=== PATIENT | male | born 1945 | race Caucasian/White ===

== ENCOUNTER → 2017-10-20 10:04 | Outpatient (CLI) | payer MEDICARE, BC, SELFPAY ==
--- NOTE | 2017-10-20 10:08 | CI_ITS ---
Cerebrovascular Exam Indications: 433.10 Occlusion/stenosis of carotid artery without cerebral infarction. IMPRESSIONS 1. The bilateral vertebral arteries are patent with normal antegrade flow. 2. Study suggests 100% stenosis involving the right internal carotid artery. 3. Study suggests 50-69% stenosis involving the left internal carotid artery. No change from the study of 06-Jun-2015. History: Coronary artery disease. Risk factors: Hypertension. Hyperlipidemia. Carotid duplex study. Complete study and Doppler flow study including spectral analysis, color and weinstein scale imaging. Height: Height: 182.9cm. Height: 72in. Weight: Weight: 99.8kg. Weight: 219.5lb. Body mass index: BMI: 29.8kg/m^2. Body surface area: BSA: 2.27m^2. Location: Vascular laboratory. Patient status: Outpatient. Tables: Arterial flow: + +--------+--------+ Location V sys V ed + +--------+--------+ Right CCA - proximal 73.9cm/s 11.8cm/s + +--------+--------+ Right CCA - distal 57.4cm/s 12.6cm/s + +--------+--------+ Right ECA 90.4cm/s -------- + +--------+--------+ Right vertebral 49.5cm/s -------- + +--------+--------+ Left CCA - proximal 80.1cm/s 25.1cm/s + +--------+--------+ Left CCA - distal 78.6cm/s 25.9cm/s + +--------+--------+ Left ECA 111cm/s -------- + +--------+--------+ Left ICA - proximal 106cm/s 32.2cm/s + +--------+--------+ Left ICA - mid 148cm/s 58.9cm/s + +--------+--------+ Left ICA - distal 127cm/s 40.1cm/s + +--------+--------+ Left vertebral 52.6cm/s -------- + +--------+--------+ Velocity ratios: + + + + Left, V sys Left, V ed + + + + Max ICA/dist CCA 1.88 2.27 + + + + (Report amended ) Electronically signed by: Jose Gamino [id number]
== END ==
PROVIDERS: Family Provider Family Medicine; PCP Family Medicine; Visit Provider Family Medicine
DX: I65.23 Occlusion and stenosis of bilateral carotid arteries (principal)
CPT/HCPCS: 93880

== ENCOUNTER → 2017-11-21 15:17 | Outpatient (CLI) | payer MEDICARE, BC, SELFPAY ==
--- NOTE | 2017-11-21 15:26 | CT_ITS ---
LD CT EXAM: CT LUNG LOW DOSE WO CONTRAST COMPARISON: EXAM: CT CT CHEST 2015 HISTORY: Currently smoking. One pack per day for 50 years = 50 pack-year RADIATION DOSE: CTDI vol(CT dose Index-volume) = 2.95mG DLP (Dose Length Product) = 119.15 mGcm FINDINGS:- LUNGS:There are moderate panlobular emphysematous changes. No suspicious pulmonary nodules are evident. The previous noted wispy minimal density at the posterior right lower lobe seen in 2016 has since resolved and was likely infiltrate. There is some scant scarring or less likely infiltrate which was also now evident the medial right posterior sulcus. Not of concern. Follow-up one year adequate . There is some mild interstitial coarsening but no significant interstitial fibrosis. No pleural effusion. . AIRWAYS minor diffuse bronchial thickening. No endobronchial lesions are identified. PLEURAL SPACES:No significant effusion. No evidence of pneumothorax. HEART:Normal heart size. Moderately extensive Coronary artery calcification is present: right coronary and circumflex most evident and less evident at LAD.: MEDIASTINAL AND HILAR STRUCTURES:No mediastinal or hilar mass evident. No significant adenopathy. VASCULATURE::No acute finding. No thoracic aortic aneurysm or dissectionevident. No evidence of central pulmonary embolus BONY STRUCTURES:No acute bony abnormalities apparent LYMPH NODES:No enlarged lymph nodes evident UPPER ABDOMEN: A 7.5 mm mm low-density area at the central liver Is not changed appreciably since 2016 CT study supporting its benign nature..\ =====IMPRESSION:====== 1. Panlobular emphysematous changes with minimal bronchial thickening. 2. No suspicious nodules. Or masses.. Mediastinal mass nor adenopathy. 3. Lung RADS. Benign features Minimal wispy probable scarring medial right lung base . Follow-up LDCT one year recommended. 4. coronary artery disease. 5. Nonspecific 7.5 mm hypodense lesion of the superior central liver liver. Stable benign feature unchanged since previous study ========= LUNG RADS Category: 2. Benign appearing features RECOMMENDATION: Follow up ldct one year ========= TECHNIQUE: The exam was performed on a [employer] Speed [address] scanner using 3.0 mGy CTDI. A low dose helical CT CHEST was performed on a multi-detector scanner The LDCT was performed in a facility that meets the criteria for the screening program. Data regarding this exam was submitted to ACR which is an approved registry. The order for this exam indicates that it came as a result of a lung cancer screening counseling shard decision-making visit that included all the elements required of such a visit including smoking cessation. The radiologist interpreting this exam meets the CMS criteria for the LDCT lung cancer screening program. The exam is reported using the Lung-RADS classification scale and reported to the ACR registry. NOTE: This study was performed for the specific purposes of lung cancer screening and is not an alternative to diagnostic chest CT.
== END ==
PROVIDERS: Family Provider Family Medicine; PCP Family Medicine; Visit Provider Family Medicine
DX: Z87.891 Personal history of nicotine dependence (principal); F17.200 Nicotine dependence, unspecified, uncomplicated; Z12.2 Encounter for screening for malignant neoplasm of respiratory organs

== ENCOUNTER → 2018-10-20 10:12 | Outpatient (CLI) | payer MEDICARE, BC, SELFPAY ==
--- NOTE | 2018-10-20 10:16 | US_ITS ---
US Arterial Ankle Brachial Ind History: ITS.REASON: Skin Changes, decreased pulses to the left foot, smoker, coronary artery disease ORDERING PHYSICIAN: Felicia Dyson DPM PATIENT AGE: 72 years TECHNIQUE: Segmental pressures obtained of both right and left leg. These are compared to brachial blood pressure to yield index at each level sampled including summary AMBER. The data sheets from the procedure are available in PACS FINDINGS Rest study only performed today No prior studies available for comparison. Blood pressures reported are in millimeters mercury. RIGHT LEG AMBER = .9. RIGHT LEG TBI=.7 Brachial BP: 165 Thigh BP: 165 Calf BP: 171 Ankle PT: 153 Ankle DP : 147 Digit =114 LEFT LEG AMBER = 1.0 LEFT LEG TBI= .7 Brachial BPD: 160 Thigh BP: 157 Calf BP: 170 Ankle PT:169 Ankle DP: 160 Digit = 119 Pulses and waveforms: Normal IMPRESSION: The ABIs and the TBI's as reported above are within normal limits. Waveforms and pulses are also unremarkable.
== END ==
PROVIDERS: PCP Family Medicine; Visit Provider Podiatrist
DX: R09.89 Other specified symptoms and signs involving the circulatory and respiratory systems (principal)
CPT/HCPCS: 93922

== ENCOUNTER → 2018-12-01 09:57 | Outpatient (POV) | payer MEDICARE, BC, SELFPAY ==
[2018-12-01 10:31] VITALS: BP 113/62; PULSE 67; RESP 18; O2SAT 98
--- NOTE | 2018-12-01 16:36 | HMH.PMCON ---
Assessment and Plan (1) Postlaminectomy syndrome Current visit: Yes Status: Chronic Category: Medical Code(s): M96.1 - Postlaminectomy syndrome, not elsewhere classified - Assessment and plan all Dx Assessment and Plan for all problems:: Patient and I had a long discussion in regards to our options. I will go ahead and schedule therapy for the patient. Since the patient got no relief from injections, I do not believe repeating them will be beneficial. I think the patient would benefit from an intrathecal pain pump. I discussed with the patient the ability to trial this. Patient would like to finish physical therapy and think about it. I will see the patient back after physical therapy to reassess. Dr Victor has reviewed this chart and agrees with this plan of care. HPI - Data of Consult Consult date: 12/01/18 Requesting Physician: Constanza Carrillo APRN Primary Care Provider: Sam Vu MD - Consult Narrative Reason for consult: Back pain History of present illness: Mr. Hsu is a 73 year old male Presents today for consultation in regards to his low back pain. Patient had [address] Montague. Patient states it helped however in 2016 his pain came back and was worse. He has pain in his low back and radiating into his hips. He rates his pain a 6 out of 10. Patient denies numbness or tingling in all extremities. Patient is tried and failed ice, rest, heat, stretching. Patient states that bending and lifting increases his pain. Patient does exercises at home continually. Patient has been to the pain clinic where he received injection of therapy along with rhizotomies with no improvement. Patient was told he was going to be sent to physical therapy however this did not get scheduled for him. Patient is wondering what his options are moving forward. Patient is currently on Percocet 7.51 p.o. 4 times daily and diazepam 5 mg 1 p.o. 3 times daily. CC: Constanza Carrillo APRN [facility] History I have reviewed the patient's past medical history: Yes Medical History: Reports:: Gastroesophageal Reflux Disease(GERD), Hyperlipidemia, Hypertension Denies:: Diabetes Mellitus Type 1, Diabetes Mellitus Type 2 *Have you ever received a pneumonia vaccine?: Yes Other Medical History: Reports: Arthritis, Other Other Surgeries: Yes: Colonoscopy, Coronary Stent (3 OR 4 stents in heart), Other Amputation: No Fractures: No - *Social History Smoking Status: Never smoker Tobacco Type: cigarettes # Packs/Day (cigarettes): 2 Alcohol Intake: never Alcohol Intake Frequency:: other Substance Use Type: denies use *Occupational Status:: retired Housing: house *Travel in the last 8 weeks: None - Psychiatric History Expresses thoughts of harming self/others: None Suicide Plan Description: No Plan Family Hx:: Hyperlipidemia, Cancer, Hypertension Review of Systems - Review of Systems ROS General: no recent weight change, no fever, no sleep disturbances Respiratory: no cough, no shortness of air, no recurring pulmonary infections Cardiovascular/Peripheral Vascular: No chest pain, No palpitations, no edema, no shortness of breath. Gastrointestinal: no incontinence, normal bowel movements reported Genitourinary: no incontinence Musculoskeletal: Back pain Psychiatric: normal mood/ affect Neurological: [denies weakness in extremities], [denies balance issues] Meds Home Medications Medication Instructions Recorded Confirmed Type aspirin 81 mg tablet,delayed 81 mg PO QDAY 10/14/17 10/14/18 History release diazepam 10 mg tablet 10 mg PO QHS tab 10/14/17 10/14/18 History duloxetine 60 mg capsule,delayed 60 mg PO QDAY 10/14/17 10/14/18 History release gabapentin 100 mg capsule 100 mg PO TID cap 10/14/17 10/14/18 History lisinopril 10 mg tablet 10 mg PO QDAY 10/14/17 10/14/18 History metoprolol succinate ER 25 mg 25 mg PO QDAY tab 10/14/17 10/14/18 History tablet,extended release 24 hr multivitamin tablet 1
--- NOTE | 2018-12-01 16:39 | P.CONS_ITS ---
Assessment and Plan (1) Postlaminectomy syndrome Current visit: Yes Status: Chronic Category: Medical Code(s): M96.1 - Postlaminectomy syndrome, not elsewhere classified - Assessment and plan all Dx Assessment and Plan for all problems:: Patient and I had a long discussion in regards to our options. I will go ahead and schedule therapy for the patient. Since the patient got no relief from injections, I do not believe repeating them will be beneficial. I think the patient would benefit from an intrathecal pain pump. I discussed with the patient the ability to trial this. Patient would like to finish physical therapy and think about it. I will see the patient back after physical therapy to reassess. Dr Victor has reviewed this chart and agrees with this plan of care. HPI - Data of Consult Consult date: 12/01/18 Requesting Physician: Constanza Carrillo APRN Primary Care Provider: Sam Vu MD - Consult Narrative Reason for consult: Back pain History of present illness: Mr. Hsu is a 73 year old male Presents today for consultation in regards to his low back pain. Patient had [address] Montague. Patient states it helped however in 2016 his pain came back and was worse. He has pain in his low back and radiating into his hips. He rates his pain a 6 out of 10. Patient denies numbness or tingling in all extremities. Patient is tried and failed ice, rest, heat, stretching. Patient states that bending and lifting increases his pain. Patient does exercises at home continually. Patient has been to the pain clinic where he received injection of therapy along with rhizotomies with no improvement. Patient was told he was going to be sent to physical therapy however this did not get scheduled for him. Patient is wondering what his options are moving forward. Patient is currently on Percocet 7.51 p.o. 4 times daily and diazepam 5 mg 1 p.o. 3 times daily. CC: Constanza Carrillo APRN [facility] History I have reviewed the patient's past medical history: Yes Medical History: Reports:: Gastroesophageal Reflux Disease(GERD), Hyperlipidemia, Hypertension Denies:: Diabetes Mellitus Type 1, Diabetes Mellitus Type 2 *Have you ever received a pneumonia vaccine?: Yes Other Medical History: Reports: Arthritis, Other Other Surgeries: Yes: Colonoscopy, Coronary Stent (3 OR 4 stents in heart), Other Amputation: No Fractures: No - *Social History Smoking Status: Never smoker Tobacco Type: cigarettes # Packs/Day (cigarettes): 2 Alcohol Intake: never Alcohol Intake Frequency:: other Substance Use Type: denies use *Occupational Status:: retired Housing: house *Travel in the last 8 weeks: None - Psychiatric History Expresses thoughts of harming self/others: None Suicide Plan Description: No Plan Family Hx:: Hyperlipidemia, Cancer, Hypertension Review of Systems - Review of Systems ROS General: no recent weight change, no fever, no sleep disturbances Respiratory: no cough, no shortness of air, no recurring pulmonary infections Cardiovascular/Peripheral Vascular: No chest pain, No palpitations, no edema, no shortness of breath. Gastrointestinal: no incontinence, normal bowel movements reported Genitourinary: no incontinence Musculoskeletal: Back pain Psychiatric: normal mood/ affect Neurological: [denies weakness in extremities], [denies balance issues] Meds Home Medications Medication Instructions Recorded Confirmed Type aspirin 81 mg tablet,delayed 81 mg PO QDAY 0
== END ==
PROVIDERS: PCP Family Medicine; Visit Provider Clinical Nurse Specialist Family Health
DX: M96.1 Postlaminectomy syndrome, not elsewhere classified (principal)
CPT/HCPCS: 99202

== ENCOUNTER 2019-01-15 10:00 | Outpatient (RCR) | payer MEDICARE, BC, SELFPAY ==
--- NOTE | 2018-12-04 15:52 | HMH.PTOPEV ---
PT Outpatient Evaluation Rehab PT Outpatient Evaluation Start: 12/04/18 15:32 Freq: Status: Active Protocol: Document 12/04/18 15:32 PHOPRAMOD (Rec: 12/04/18 15:48 PHORNE [id number]) Electronically Signed By Fermin Palomino, PT 12/04/18 15:32 Outpatient Therapy Subjective History Subjective History Pt is a 73 yowm with complaints of lower back pain. Pain has been present since February 2016. Pt reports waking up one morning and not being able to get out of bed. Pt reports having back surgery soon after which helped the left leg pain. Pt reports pain is 5/10 at the moment, 3/10 at best and 8/10 at worst. Pt reports pain is in the lower back and goes into the right hip. Pt reports numbness at times in the left upper leg. Pt reports pain decreases when lying in supine, and increases with activity. Pt's comorbidities include A-fib and prostate issues. Pt's past surgeries include back surgery and right knee replacement. Chief Complaint Pain Symptom Type Ache Throb Symptoms Relieved By Rest/Positioning Ice Symptoms Aggravated By Sitting Standing Bending/Stooping Physical Activity Walking Lifting Prior Functional Limitations None Current Functional Limitations Lifting Sleeping Standing Sitting Squatting Recreation Activity Walking Stairs Balance Symptom Description Constant but Variable Level of pain today (0-10) 5 Pain scale - at its best (0-10) 3 Pain scale - at its worst (0-10) 8 Lumbopelvic Eval Posture Thoracic Spine Posture Standing Position Neutral Lumbar Spine Posture Standing Position Flattened Assistive device Assistive Devices None / NA Gait Observation General G
== END 2019-01-15 10:05 | disposition home or self-care (01) ==
LOC: PT 10:00
PROVIDERS: Visit Provider Clinical Nurse Specialist Family Health
DX: M54.5 Low back pain (principal)
CPT/HCPCS: 97010; 97014; 97110; 97163; G0283

== ENCOUNTER → 2019-09-29 09:32 | Outpatient (CLI) | payer MEDICARE, BC, SELFPAY ==
--- NOTE | 2019-09-29 | CA_ITS ---
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 (known) Duplex evaluation demonstrates stenosis of the left internal carotid artery in the range of 50-69% with PSV =140 cm/sec, EDV <100 cm/sec, and IC/CC Ratio <4.0. Duplex evaluation demonstrates antegrade flow of the right Vertebral Artery. Left Vertebral appears to be occluded, new finding. Electronically signed by : Jose Gamino MD 09/30/2019 18:44:42
== END ==
PROVIDERS: PCP Family Medicine; Visit Provider Family Medicine
DX: I65.23 Occlusion and stenosis of bilateral carotid arteries (principal)
CPT/HCPCS: 93880

== ENCOUNTER → 2019-11-02 08:51 | Outpatient (CLI) | payer MEDICARE, BC, SELFPAY ==
[2019-11-02 09:34] LABS: Blood Urea Nitrogen 13 mg/dL (7-18); Estimated Glomerular Filt Rate 59 ml/min (>60); GFR (African American) 72 ML/MIN (>60)
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
--- NOTE | 2019-11-02 09:42 | CT_ITS ---
Procedure: CT ANGIO NECK CLINICAL HISTORY: M[place]IE COMPARISON: No exams were available for comparison TECHNIQUE: IV Contrast: 100ml Optiray 350 Axial images obtained with sagittal and coronal reformats. All CT scans at the facility use one or more dose reduction, viz: automated exposure control, ma/kV adjustment per patient size (including targeted exams where dose is matched to indication, i.e. head), or iterative reconstruction technique. FINDINGS: There is extensive atherosclerosis. There is complete occlusion of the right internal carotid artery at its origin due to mixed calcified and noncalcified atherosclerotic plaques. No flow is seen distally. Right external carotid artery and its branches appear patent. Noncalcified atherosclerotic plaque at the level of the mid right common carotid artery appears to cause 50-60 percent luminal stenosis. Mixed calcified and noncalcified atherosclerotic plaque is seen in the distal left common carotid artery extending to the internal carotid. There is approximately 40-50 percent luminal stenosis of the distal left common carotid artery and 20 percent luminal stenosis of proximal most left internal carotid artery. The external carotid and its branches are patent. There is nonvisualization of a patent left vertebral artery. Right vertebral artery appears patent to the level of the basilar artery. [id number]-[id number] vessels including right middle cerebral artery and anterior cerebral branches appear patent likely due to patent communicating vessels. A 5 millimeter hypodense nodule is incidentally noted in the left thyroid lobe. Lung apices are emphysematous. Some densities in the apices are likely due to scarring. IMPRESSION: Extensive atherosclerosis as described with occlusion of the right internal carotid artery at its origin and nonvisualization of a patent left vertebral artery likely also occluded at its origin. Approximately 40-50 percent luminal stenosis distal left common carotid artery and 20 percent stenosis left internal carotid artery. Flow is noted within patent [id number] vessels Dictated by: Daniel Jenkins 11/02/2019 11:13 Electronically signed by Daniel Jenkins in [place] 11/02/2019 11:13
== END ==
PROVIDERS: PCP Family Medicine; Visit Provider Thoracic Surgery (Cardiothoracic Vascular Surgery)
DX: I65.23 Occlusion and stenosis of bilateral carotid arteries (principal); M53.3 Sacrococcygeal disorders, not elsewhere classified
CPT/HCPCS: 36415; 70498; 74176; 82565; 84520; Q9967

== ENCOUNTER → 2020-05-03 11:27 | Outpatient (CLI) | payer MEDICARE, BC, SELFPAY ==
[2020-05-03 14:15] LABS: Coronavirus 19 IgG Antibody Negative (Negative); Coronavirus 19 IgM Antibody Negative (Negative)
== END ==
PROVIDERS: Visit Provider Internal Medicine Gastroenterology
DX: Z01.818 Encounter for other preprocedural examination (principal)
CPT/HCPCS: 36415; 86328

== ENCOUNTER 2020-05-05 08:33 | Day surgery (SDC) | payer MEDICARE, BC, SELFPAY ==
[2020-04-26 11:07] VITALS: BMI 29.9
[2020-05-05] VITALS (8 sets, daily range): BP systolic 121–170; BP diastolic 68–92; PULSE 53–89; RESP 18; TEMP 36.3–37; O2SAT 92–97
--- NOTE | 2020-05-05 09:21 | P.PN_ITS ---
[facility] Anesthesia Checklist - Patient Identification Patient Identification: Arm Band - Structural Data Admitted From: Home Planned Operative Procedure/s: colonoscopy Consent for Planned Operative Procedure(s) Verified: Yes Verified Documents: Surgical Consent, History and Physical - NPO Status Verified Time NPO: 00:00 - Additional verifications Anesthesia Reactions: No - Airway Assessment C-Spine Mobility Assessed: Yes (mp2) TMJ Mobility Assessed: Yes Dentition: Edentulous - Neurological Assessment Level of Consciousness: Awake, Alert - Anesthesia Plan Anesthesia Risk discussed: Yes Anesthesia Plan: Verified ASA Class: III Anesthesia Type: MAC [facility] History I have reviewed the patient's past medical history: Yes Medical History: Reports:: Atrial Fibrillation, Coronary Artery Disease, Gastroesophageal Reflux Disease(GERD), Hyperlipidemia, Hypertension Denies:: Cancer, Diabetes Mellitus Type 1, Diabetes Mellitus Type 2, Internal Pacemaker, MRSA, Seizures *Have you ever received a pneumonia vaccine?: No *Have you received a flu vaccine this season?: Yes Other Medical History: Reports: Arthritis, Other Anesthesia experience/problems:: nac Laterality Cases: Right: Total Knee Replacement Other Surgeries: Yes: Colonoscopy, Coronary Stent, Other. No: Pacemaker Amputation: No Fractures: No - *Social History Last grade of school completed: 7th or 8th Smoking Status: Current every day smoker Tobacco Type: cigarettes # Packs/Day (cigarettes): 2 Alcohol Intake: never Alcohol Intake Frequency:: other Substance Use Type: denies use *Occupational Status:: retired Housing: house Household Members: none *Travel in the last 8 weeks: None Family Hx:: Cancer, Diabetes, Hyperlipidemia, Hypertension
--- NOTE | 2020-05-05 09:46 | P.PCN_ITS ---
[facility] Procedure Note Procedure Note:: Colonoscopy Procedure Report: Colonoscopy with cold biopsies, cold snare polypectomy and hemorrhoid band ligation Endoscopist: Walker Navarro II, MD Referring physician: Mulu Vu M.D. Date of Procedure: May 05, 2020 Equipment: Olympus 180 variable stiffness pediatric colonoscope Sedation: MAC sedation Indication: Mr. Hsu is a 74-year-old gentleman who is here for screening colonoscopy. He also has fairly significant hemorrhoid prolapse. His last colonoscopy in 2012 (Dr. Jasen Hutchinson) was reportedly normal. He does have some intermittent bowel irregularity and takes stool softeners but also may develop intermittent diarrhea. He does get gassiness and some lower abdominal discomfort. Procedure: Prior to the procedure, a history and physical exam was performed, and patient's medications and allergies were reviewed. The risks, benefits and alternatives of the sedation and procedure were discussed with the patient. All questions were answered and informed consent was obtained. The patient was brought to the procedure room. Patient identification and proposed procedure were verified by the physician and the nurse. The patient was placed in a left lateral decubitus position and the scope was passed under direct vision. Throughout the procedure, the patient's blood pressure, pulse, and oxygen saturations were monitored continuously. The colonoscopy was accomplished without difficulty. The patient tolerated the procedure well. Findings: On digital rectal examination there was normal rectal tone. There were no external hemorrhoids. The colonoscope was introduced through the anal canal to the rectum and advanced to the cecum. The ileocecal valve and appendiceal orifice were identified. The scope was advanced a short distance into the ileum which appeared grossly normal. The scope was then withdrawn into the colon. The cecum was normal. There was evidence of colonic ulceration that was very focal in the distal ascending colon near the hepatic flexure. Cold biopsies were obtained. There were 4 colon polyps (transverse x1 (3 mm), descending x1 (4 mm), sigmoid x1 (6 mm) and rectosigmoid x1 (4 mm)) which were all removed via cold snare polypectomy. There were scattered diverticuli throughout the descending and sigmoid colon (LEFT colon). The rectum itself was normal. Upon retroflexion within the rectum there were grade 3 large prolapsed internal hemorrhoids. These were banded using 3 bands with excellent ligation effect. The preparation was excellent throughout with [place] Preparation Score of 9. The cecal time was 14 minutes. Impression: 1. Diminutive colonic polyps x4 2. Left-sided diverticulosis 3. Grade 3 internal hemorrhoids status post band ligation x3 Plan: I will follow up the polyp pathology and recommend repeat colonoscopy again in 5 years based upon the polyp histology. I would encourage bulk fiber supplementation (Konsyl 1 tablespoon mixed in 8 to 10 ounces of juice or water p.o. every morning) on a long-term daily maintenance basis.
== END 2020-05-05 11:20 | disposition home or self-care (01) ==
LOC: OUTP 08:36
PROVIDERS: PCP Family Medicine; Visit Provider Internal Medicine Gastroenterology
PROC: 0DJD8ZZ Inspection of Lower Intestinal Tract, Via Natural or Artificial Opening Endoscopic (ICD-10-PCS; CPT 45378; principal; 2020-05-05 09:30)
DX: Z12.11 Encounter for screening for malignant neoplasm of colon (principal); Z87.19 Personal history of other diseases of the digestive system; K63.5 Polyp of colon; K57.30 Diverticulosis of large intestine without perforation or abscess without bleeding; K64.2 Third degree hemorrhoids; I48.91 Unspecified atrial fibrillation; I25.10 Atherosclerotic heart disease of native coronary artery without angina pectoris; K21.9 Gastro-esophageal reflux disease without esophagitis; E78.5 Hyperlipidemia, unspecified; I10 Essential (primary) hypertension; M19.90 Unspecified osteoarthritis, unspecified site; Z96.651 Presence of right artificial knee joint
CPT/HCPCS: 45385; 45398; 88305

== ENCOUNTER → 2020-06-14 12:46 | Outpatient (CLI) | payer MEDICARE, BC, SELFPAY ==
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
[2020-06-14 13:50] LABS: Blood Urea Nitrogen 15 mg/dl (9-20); Estimated Glomerular Filt Rate 73 ml/min (>60); GFR (African American) 89 ML/MIN (>60)
== END ==
PROVIDERS: PCP Family Medicine; Visit Provider Family Medicine
DX: R10.9 Unspecified abdominal pain (principal)
CPT/HCPCS: 36415; 74160; 82565; 84520; Q9967

== ENCOUNTER → 2020-12-27 10:06 | Outpatient (CLI) | payer MEDICARE, BC, SELFPAY ==
--- NOTE | 2020-12-27 | CA_ITS ---
APPROVED REPORT Lead Technical Writer: CHAPO Laterality: Bilateral Study Quality: Good Indications: HX-total right ICA occlussion Risk Factors Hypertension: Smoking Doppler Spectral Velocity Analysis ECA (R) 154.00/21.00 cm/s ECA (L) 147.00/28.00 cm/s dICA (R) 0.00/ cm/s dICA (L) 124.00/54.00 cm/s José (R) 0.00/ cm/s José (L) 188.00/60.00 cm/s pICA (R) 0.00/ cm/s pICA (L) 195.00/49.00 cm/s dCCA (R) 115.00/13.00 cm/s pCCA (R) 67.00/9.00 cm/s dCCA (L) 105.00/41.00 cm/s Vert (R) 77.00/29.00 cm/s pCCA (L) 116.00/43.00 cm/s ICA/CCA 0.00 Vert (L) 55.00/27.00 cm/s ICA/CCA 1.68 Findings Duplex evaluation demonstrates chronic occlusion of the proximal right Internal Carotid Artery. Duplex evaluation demonstrates stenosis of the left proximal internal carotid artery in the range of 50-69% with PSV =140 cm/sec, EDV <100 cm/sec, and IC/CC Ratio <4.0. Duplex evaluation demonstrates antegrade flow of the bilateral Vertebral Arteries. Conclusion Duplex evaluation demonstrates chronic occlusion of the proximal right Internal Carotid Artery. Duplex evaluation demonstrates stenosis of the left proximal internal carotid artery in the range of 50-69% with PSV =140 cm/sec, EDV <100 cm/sec, and IC/CC Ratio <4.0. Duplex evaluation demonstrates antegrade flow of the bilateral Vertebral Arteries. Electronically signed by : Jose Gamino MD 12/27/2020 17:40:56
== END ==
PROVIDERS: PCP Family Medicine; Visit Provider Thoracic Surgery (Cardiothoracic Vascular Surgery)
DX: I65.23 Occlusion and stenosis of bilateral carotid arteries (principal)
CPT/HCPCS: 93880

== ENCOUNTER → 2021-01-01 10:41 | Outpatient (POV) | payer MEDICARE, BC, SELFPAY | PROVIDERS: Visit Provider Nurse Practitioner Family | DX: Z00.00 Encounter for general adult medical examination without abnormal findings (principal) ==

== ENCOUNTER → 2021-04-16 13:13 | Outpatient (POV) | payer MEDICARE, BC, SELFPAY | PROVIDERS: Visit Provider Nurse Practitioner Family | DX: Z00.00 Encounter for general adult medical examination without abnormal findings (principal) ==

== ENCOUNTER → 2021-05-22 13:11 | Outpatient (CLI) | payer MEDICARE, BC, SELFPAY ==
[2021-05-22 14:55] LABS: Blood Urea Nitrogen 14 mg/dl (9-20); Estimated Glomerular Filt Rate 73 ml/min (>60); GFR (African American) 88 ML/MIN (>60)
== END ==
PROVIDERS: Visit Provider Family Medicine
DX: R10.9 Unspecified abdominal pain (principal)
CPT/HCPCS: 36415; 82565; 84520

== ENCOUNTER → 2021-05-25 09:36 | Outpatient (CLI) | payer MEDICARE, BC, SELFPAY ==
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
== END ==
PROVIDERS: PCP Family Medicine; Visit Provider Nurse Practitioner Family
DX: R10.9 Unspecified abdominal pain (principal); R14.0 Abdominal distension (gaseous)
CPT/HCPCS: 74177; Q9967

== ENCOUNTER 2021-06-15 12:18 | Emergency (ER) | payer MEDICARE, BC, SELFPAY ==
[2021-06-15] VITALS (16 sets, daily range): BP systolic 90–132; BP diastolic 68–96; PULSE 25–130; RESP 16–23; TEMP 36.6; O2SAT 92–98; BMI 30.7
--- NOTE | 2021-06-15 12:24 | ECG_ITS ---
APPROVED REPORT Exam: Resting ECG HR:129 bpm ECG Measurements Heart Rate 129 AXES QRSd 94 QRS 70 QT 310 T 97 QTc 454 Conclusion Atrial fibrillation with rapid ventricular response Nonspecific T wave abnormality, probably digitalis effect Abnormal ECG Electronically signed by : Cheko Castaneda MD 06/16/2021 12:47:38
--- NOTE | 2021-06-15 12:40 | XR_ITS ---
PROCEDURE: XR CHEST PORTABLE CLINICAL HISTORY: SOB COMPARISON: CR CXR CHEST(2 VIEWS-NOT PORTABLE) from 05/11/[address] [address] CHEST W/ CONTRAST from 05/16/2016 CR CXR CHEST(2 VIEWS-NOT PORTABLE) from 06/04/2016 CR CXR1 CHEST-PORTABLE from 08/31/2016 FINDINGS: Cardiomegaly without failure. Prominent right pericardial fat pad. The lungs are clear without infiltrates, suspicious nodules, or pleural effusions. No acute bony abnormalities. IMPRESSION: Cardiomegaly otherwise negative Dictated by: Jose Gamino MD 06/15/2021 13:22 Jose Gamino MD in [place] 06/15/2021 13:22
[2021-06-15 13:27] LABS: Basophils % 0.6 % (0.1-2.0); Eosinophils # 0.1 K/mm3 (0.0-0.4); Eosinophils % 1.5 % (0.1-12.0); Hematocrit 43.6 % (42.0-52.0); Hemoglobin 13.8 g/dL (14.1-18.0); Lymphocytes # 1.7 K/mm3 (0.7-4.5); Lymphocytes % 28.7 % (10-50); Mean Corpuscular HGB Conc 31.6 g/dL (31.8-35.4); Mean Corpuscular Hemoglobin 29.3 pg (27.0-31.2); Mean Corpuscular Volume 92.8 fl (80-94); Mean Platelet Volume 8.7 fl (7.4-10.4); Monocytes # 0.3 K/mm3 (0.1-1.0); Monocytes % 5.7 % (1.7-9.3); Neutrophils # 3.8 K/mm3 (1.8-7.8); Neutrophils % 63.5 % (37.0-80.0); Platelet Count 206 K/mm3 (142-424); White Blood Count 5.9 K/mm3 (4.8-10.8)
[2021-06-15 13:32] LABS: Alanine Aminotransferase 18 U/L (12-78); Albumin Level 3.9 g/dl (3.5-5.0); Alkaline Phosphatase 91 U/L (38-126); Anion Gap 9.1 mEq/L (5-15); Aspartate Amino Transferase 23 U/L (17-59); Bilirubin,Direct 0.2 mg/dl (0.0-0.4); Bilirubin,Indirect 0.8 mg/dL (0.0-0.9); Bilirubin,Unconjugated 0.8 mg/dL (0.0-1.1); Blood Urea Nitrogen 11 mg/dl (9-20); Carbon Dioxide 27 mmol/L (22.0-30.0); Chloride 110 mmol/L (98-107); Creatinine Clearance Estimated 91 mL/min (50-200); Estimated Glomerular Filt Rate 94 ml/min (>60); GFR (African American) 114 ML/MIN (>60); Glucose 135 mg/dl (74-100); Potassium 4.1 mmoL/L (3.5-5.1); Sodium 142 mmol/L (136-145); Total Protein,Serum 6.9 g/dl (6.3-8.2)
[2021-06-15 13:45] LABS: NT Pro Brain Natriuretic Pep. 1900 pg/mL (0-125); Troponin I < 0.01 ng/ml (0.00-0.034)
[2021-06-15 14:20] LABS: Coronavirus 19, PCR Not Detected (NotDetected); Influenza A, PCR Not Detected (NotDetected); Influenza B, PCR Not Detected (NotDetected)
--- NOTE | 2021-06-15 14:50 | HMH.EDSOB ---
ED Disposition Clinical Impression: Congestive heart failure Qualifiers: Heart failure type: unspecified Heart failure chronicity: acute on chronic Qualified Code(s): I50.9 - Heart failure, unspecified Atrial fibrillation Qualifiers: Atrial fibrillation type: longstanding persistent Qualified Code(s): I48.11 - Longstanding persistent atrial fibrillation Disposition: Home, Self-Care Condition on Discharge: Good Instructions: DI for Heart Failure Additional Instructions: use meds as directed and see card friday Prescriptions: Bumetanide [Bumex 1mg tablet] 1 mg PO DAILY #30 tab Transmission Status: Pending to [facility] Digoxin [Digoxin 0.125mg Tablet] 125 mcg PO DAILY #30 tab Transmission Status: Pending to [facility] Sacubitril/Valsartan [Entresto 49 mg-51 mg Tablet] 1 each PO DAILY #30 tab Transmission Status: Pending to [facility] Referrals: Cheko Heredia MD [Primary Care Provider] - - Critical Care Critical Care Time: No Attestation: On 06/15/21, the high probability of a clinically significant, sudden or life threatening deterioration of the following system(s) required my full and direct attention, intervention and personal management. The time I documented below is in addition to time spent performing reported procedures but includes the following listed in this critical care notation. Medical Decision Making - Medical Records Medical records reviewed: Yes: I reviewed the patient's medical records. - Eliel Inquiry Pt receiving controlled substance: No Vital Signs: 06/15/21 12:20 06/15/21 12:30 06/15/21 13:03 Temperature 97.8 F Temperature Source Oral Pulse Rate 69 Pulse Rate [Radial] 130 H Respiratory Rate 20 17 Blood Pressure 125/74 122/71 Blood Pressure [Right Arm] 115/83 Blood Pressure Mean 91 Blood Pressure Mean [Right Arm] 93 Blood Pressure Position Blood Pressure Position [Right Arm] Sitting 02 Sat by Pulse Oximetry 96 94 L Oxygen Delivery Method Room Air 06/15/21 13:30 06/15/21 14:00 06/15/21 14:31 Temperature Temperature Source Pulse Rate 113 H Pulse Rate [Radial] Respiratory Rate 20 23 19 Blood Pressure 90/68 L 96/75 L 122/89 Blood Pressure [Right Arm] Blood Pressure Mean 82 99 Blood Pressure Mean [Right Arm] Blood Pressure Position Blood Pressure Position [Right Arm] 02 Sat by Pulse Oximetry 92 L 96 94 L Oxygen Delivery Method 06/15/21 14:45 06/15/21 16:09 06/15/21 16:17 Temperature Temperature Source Pulse Rate 110 H 130 H 112 H Pulse Rate [Radial] Respiratory Rate 19 Blood Pressure 122/89 110/90 132/94 H Blood Pressure [Right Arm] Blood Pressure Mean Blood Pressure Mean [Right Arm] Blood Pressure Position Sitting Sitting Blood Pressure Position [Right Arm] 02 Sat by Pulse Oximetry 97 Oxygen Delivery Method - Lab Data Lab results reviewed: Yes: I reviewed the patient's lab results. Lab Results 06/15/21 13:09: WBC 5.9, RBC 4.70, Hgb 13.8 L, Hct 43.6, MCV 92.8, MCH 29.3, MCHC 31.6 L, RDW 16.0, Plt Count 206, MPV 8.7, Neut % (Auto) 63.5, Lymph % (Auto) 28.7, [place] % (Auto) 5.7, Eos % (Auto) 1.5, Baso % (Auto) 0.6, Neut # (Auto) 3.8, Lymph # (Auto) 1.7, [place] # (Auto) 0.3, Eos # (Auto) 0.1, Baso # (Auto) 0.0 06/15/21 13:09: Sodium 142, Potassium 4.1, Chloride 110 H, Carbon Dioxide 27, Anion Gap 9.1, BUN 11, Creatinine 0.80, Estimated Creat Clear 91, Estimated GFR 94, Est GFR ( Amer) 114, Glucose 135 H, Calcium 9.0, Total Bilirubin 1.0, Direct Bilirubin 0.2, Conjugated Bilirubin 0.0, Indirect Bilirubin 0.8, Unconjugated Bilirubin 0.8, AST 23, ALT 18, Alkaline Phosphatase 91, Total Protein 6.9, Albumin 3.9 06/15/21 13:09: Troponin I < 0.01, NT-Pro-B Natriuret Pep 1900 H 06/15/21 13:09: SARS-CoV-2 (PCR) Not detected, Influenza A Untype (PCR) Not detected, Influenza Type B (PCR) Not detected 06/15/21 13:09: TSH 2.13, Thyroxine
--- NOTE | 2021-06-15 14:57 | CA_ITS ---
APPROVED REPORT EXAM: Comprehensive 2D, Doppler, and color-flow Echocardiogram Chemical Applicator: Deepa Weir RT(R) Ht: 5 ft 11 in Wt: 220lbs BSA: 2.20 BP: 122/89 mmHg Indications: SOA, HTN, smoker, hyperlipidemia, AFIB, GERD, CAD, patient takes Xarelto for AFIB 2D Dimensions LVOT 2.04 cm (M/F) 1.5-2.5 LVEF (Segura's) 27.10 % M: 52 - 72 LV Volume 124.90 mL M: 62 - 150 LV Volume Index 57.03 mL/m2 M: 34 - 74 LA Volume 73.50 mL LA Volume Index 33.56 mL/m2 (M/F) 16-34 M-Mode Dimensions RVDd 3.61 cm (0.9-2.6) LA Diam 4.39 cm (1.9-4.0) LVDd 5.84 cm (3.5-5.7) Ao Diam 2.56 cm (2.0-3.7) LVDs 5.40 cm (3.5-5.7) IVSd 0.85 cm (0.6-1.1) PWd 0.80 cm (0.6-1.1) EF (Teich) 16.50% FS 7.50% EDV (Teich) 169.20 mL ESV (Teich) 141.30 mL Tricuspid Valve TR P. Velocity 226.00 cm/s RAP Estimate 15.00 mmHg RVSP 35.40 mmHg Left Ventricle Left atrium is mildly enlarged, left ventricle is mildly dilated, severe reduced left ventricular systolic function, visually estimated ejection fraction 30%, left ventricle appears to be globally hypokinetic, Doppler evidence of raised left ventricular end-diastolic pressure seen. Right Ventricle Right atrium right ventricle mildly enlarged with normal contractility. Aortic Valve Aortic valve is thickened and calcified without Doppler evidence of aortic stenosis or aortic insufficiency. Mitral Valve Mitral valve leaflets are minimally thickened, there is moderate mitral regurgitation. Tricuspid Valve Tricuspid valve is grossly normal, there is mild tricuspid regurgitation, calculated right ventricular systolic pressure is 36 mmHg. Pulmonic Valve Pulmonic valve is poorly visualized. Great Vessels Aortic root is normal size. Inferior vena cava is poorly visualized. Pericardium No significant pericardial effusion noted. Conclusion 1. Biatrial enlargement, mildly dilated left ventricle, severely reduced left ventricular systolic function visually estimated ejection fraction 30%, left ventricle is globally hypokinetic. Doppler evidence of raise left ventricular end-diastolic pressure. 2. Moderate mitral and tricuspid regurgitation, calculated right ventricular systolic pressure is 36 mmHg. 3. No significant pericardial effusion noted. 4. Inferior vena cava is not well visualized. Electronically signed by : Teto Dennis MD 06/15/2021 18:10:09
[2021-06-15 15:26] LABS: T4 (Thyroxine) 6.7 ug/dl (5.53-11.0)
[2021-06-15 15:39] LABS: Thyroid Stimulating Hormone 2.13 uIU/mL (0.465-4.68)
[2021-06-15 17:08] LABS: Troponin I < 0.01 ng/ml (0.00-0.034)
== END 2021-06-15 17:30 | disposition home or self-care (01) ==
PROVIDERS: Emergency Provider Emergency Medicine; PCP Family Medicine
DX: I50.9 Heart failure, unspecified (principal); I48.11 Longstanding persistent atrial fibrillation; Z20.822 Contact with and (suspected) exposure to COVID-19; K21.9 Gastro-esophageal reflux disease without esophagitis; I10 Essential (primary) hypertension; E78.5 Hyperlipidemia, unspecified; F17.210 Nicotine dependence, cigarettes, uncomplicated; Z79.899 Other long term (current) drug therapy
CPT/HCPCS: 36415; 71045; 80048; 80076; 83880; 84436; 84443; 84484; 85025; 93005; 93306; 96375; 99283; C9803; U0003; U0005

== ENCOUNTER 2021-06-21 13:53 | Observation (INO) | payer MEDICARE, BC, SELFPAY ==
--- NOTE | 2021-06-21 14:06 | PC.NURSE ---
PT ARRIVED TO THE FLOOR AT THIS TIME
[2021-06-21 14:11] VITALS: BP 138/63; PULSE 62; RESP 16; TEMP 36.5; O2SAT 95; BMI 30.4
--- NOTE | 2021-06-21 14:40 | HMH.PNCARD ---
Subjective Date: 06/21/21 (b) Time: 14:40 Principal diagnosis: atypical angina, afib with rvr, chf Interval history: Pt was seen in cardiology clinic today. please see office note. Exam Vital signs and Labs for Last 24 Hours: Temp Pulse Resp BP Pulse Ox 97.7 F 62 16 138/63 95 06/21/21 14:11 06/21/21 14:11 06/21/21 14:11 06/21/21 14:11 06/21/21 14:11 I & O for Last 24 hours: Intake & Output 06/18/21 06/19/21 06/20/21 06/21/21 23:59 23:59 23:59 23:59 Weight 218 lb - Constitutional no acute distress - *Routine HEENT Exam Head: Present: normocephalic Eye: Present: EOMI, PERRL ENT: Present: mucous membranes moist - *Routine Neck Exam Present: supple. Absent: lymphadenopathy - *Routine Respiratory Exam Present: CTA bilaterally - *Routine Cardiovascular Exam Present: Normal S1, Normal S2, tachycardia, irregularly irregular - *Routine Abdominal Exam Present: soft, normoactive bowel sounds. Absent: tenderness - *Routine Extremities Exam Absent: cyanosis, clubbing, edema - *Routine Skin Exam Present: warm. Absent: rash - *Routine Neurological Exam Present: alert, oriented X3 Progress Note: A&P (1) Atypical angina Status: Acute (2) SOB (shortness of breath) Status: Acute (3) Cardiomyopathy Status: Acute (4) Systolic CHF Status: Acute (5) LV dysfunction Status: Acute (6) Bilateral carotid artery stenosis Status: Chronic (7) Tobacco dependence syndrome Status: Chronic (8) Atrial fibrillation with RVR Status: Acute (9) HLD (hyperlipidemia) Status: Chronic (10) HTN (hypertension) Status: Chronic (11) Abnormal electrocardiography Status: Acute (12) CAD (coronary artery disease) Status: Chronic Assessment and Plan for All Diagnoses:: Follow up on AFib with rvr and medication management. CAD is present. ESDRAS in 2002 to RCA. On ASA. HTN-BP low Weight is stable. A-fib is chronic, RVR, He states he had a cardioversion x3 in 03/2021 with [employer] and it failed. Dr. Jiménez He does have an appointment on 07/04/21 with [facility]. A/c with Xarelto. Denies any bleeding issues. LDL goal is < 55, LDL is not on file. Pt is on a statin. Managed by PCP. CHF-Systolic, ef 30%, on entresto. MALLORIE is present:Occluded DANITA, 50-69% LICA. DECEMBER 2020.MALLORIE is being followed by surgeon Tobacco user, smokes around 1-2 ppd. Tobacco cessation advised. GERD is present. His EF is low @ 30%, will stop Diltiazem as this is a contraindication in LV dysfunction. Concerned that pt may have ischemic CM. he has known CAD and has not had an ischemic evaluation recently. This could also be HF from afib with RVR. pt needs rate control. Pt will need a lifevest due to severe LV dysfunction. pt is at increased risk for sudden cardiac due to severe LV dysfunction. will order lifevest. Offered hospital admission for AFIB RVR and Systolic Heart Failure to get rate control and proceed with LHC due to new onset CM and atypical angina. Patient is agreeable to hospital admission. PLAN: Admit to Hospital Stop Diltiazem CD 360 mg daily, EF 30% Change metoprolol tartrate to 50 mg PO Q6 hrs. Digoxin 0.5 mg IV x1 dose, then resume oral dose tomorrow. Full labs Will plan to proceed with LHC with right radial access tomorrow. The patient has been educated on the risks and benefits of proceeding with LHC with right radial access. The patient has verbalized understanding and is agreeable in proceeding with the procedure. Clinical evaluation and indication for diagnostic coronary angiography includes Known CAD, Cardiomyopathy, New Onset Angina <= 2 months, LV Dysfunction Patient is describing chest pain symptom as Atypical Angina Clinical risk factors of CAD, smoker, HTN, HLD Antianginals include: Betablocker and CCB Will plan to proceed with LHC/Coronary angiography with R radial access. The patient has been educated on the risks, benefits and alternatives o
[2021-06-21 14:44] VITALS: PULSE 83
[2021-06-21 15:18] LABS: Coronavirus 19, PCR Not Detected (NotDetected); Influenza A, PCR Not Detected (NotDetected); Influenza B, PCR Not Detected (NotDetected)
[2021-06-21 15:18] LABS: Basophils # 0.1 K/mm3 (0-0.2); Basophils % 1.2 % (0.1-2.0); Eosinophils # 0.1 K/mm3 (0.0-0.4); Eosinophils % 1.8 % (0.1-12.0); Hematocrit 47.5 % (42.0-52.0); Hemoglobin 14.9 g/dL (14.1-18.0); Lymphocytes # 2.2 K/mm3 (0.7-4.5); Lymphocytes % 35.7 % (10-50); Mean Corpuscular HGB Conc 31.3 g/dL (31.8-35.4); Mean Corpuscular Hemoglobin 29.1 pg (27.0-31.2); Mean Corpuscular Volume 92.9 fl (80-94); Mean Platelet Volume 8.5 fl (7.4-10.4); Monocytes # 0.5 K/mm3 (0.1-1.0); Monocytes % 7.6 % (1.7-9.3); Neutrophils # 3.3 K/mm3 (1.8-7.8); Neutrophils % 53.8 % (37.0-80.0); Platelet Count 244 K/mm3 (142-424); Red Blood Count 5.12 M/mm3 (4.60-6.20); Red Cell Distribution Width 16.2 % (11.5-17.5); White Blood Count 6.1 K/mm3 (4.8-10.8)
--- NOTE | 2021-06-21 15:18 | P.CONPHA_ITS ---
[facility] Pharm[facility] VTE Monitoring - Patient Demographics Admission date: 06/21/21 Report Date: 06/21/21 Time: 15:18 Allergies/Adverse Reactions: Patient Allergies No Known Allergies Allergy (Verified 06/21/21 13:50) Height: 1.8 m Weight: 98.883 kg Patient Problems: Current Active Problems Atypical angina (Acute) SOB (shortness of breath) (Acute) Cardiomyopathy (Acute) Systolic CHF (Acute) LV dysfunction (Acute) Bilateral carotid artery stenosis (Chronic) Tobacco dependence syndrome (Chronic) Atrial fibrillation with RVR (Acute) HLD (hyperlipidemia) (Chronic) HTN (hypertension) (Chronic) Abnormal electrocardiography (Acute) CAD (coronary artery disease) (Chronic) - VTE Risk Clinical Trial Participant: No - Prophylaxis VTE Prophylaxis Ordered?: Yes Types of VTE Prophylaxis: TEDS Knee High
[2021-06-21 15:22] LABS: Chloride 106 mmol/L (98-107)
[2021-06-21 15:23] LABS: Potassium 4.1 mmoL/L (3.5-5.1); Sodium 141 mmol/L (136-145)
[2021-06-21 15:25] LABS: Alanine Aminotransferase 16 U/L (12-78); Alkaline Phosphatase 99 U/L (38-126); Anion Gap 10.1 mEq/L (5-15); Aspartate Amino Transferase 26 U/L (17-59); Bilirubin,Indirect 0.7 mg/dL (0.0-0.9); Bilirubin,Total 0.7 mg/dl (0.2-1.3); Bilirubin,Unconjugated 0.7 mg/dL (0.0-1.1); Blood Urea Nitrogen 13 mg/dl (9-20); Carbon Dioxide 29 mmol/L (22.0-30.0); Creatinine Clearance Estimated 91 mL/min (50-200); Estimated Glomerular Filt Rate 82 ml/min (>60); GFR (African American) 100 ML/MIN (>60); Glucose 99 mg/dl (74-100)
[2021-06-21 15:26] LABS: Albumin Level 3.8 g/dl (3.5-5.0); Calcium 9.1 mg/dl (8.4-10.2); Total Protein,Serum 6.8 g/dl (6.3-8.2)
[2021-06-21 15:40] LABS: Troponin I < 0.01 ng/ml (0.00-0.034)
[2021-06-21 15:49] LABS: Free T4 (Free Thyroxine) 0.98 ng/dl (0.78-2.19)
[2021-06-21 15:57] LABS: Thyroid Stimulating Hormone 2.56 uIU/mL (0.465-4.68)
[2021-06-21 16:00] VITALS: PULSE 86
[2021-06-21 16:05] VITALS: PULSE 64
[2021-06-21 20:00] VITALS: BP 129/90; PULSE 64; PULSE 66; RESP 18; TEMP 36.6; O2SAT 97
--- NOTE | 2021-06-21 20:16 | HMH.HP ---
*Admission Date: 06/21/21 *Chief complaint: afib with rvr, cardiomyopathy *History of present illness: Patient is a 75-year-old white male, patient of Dr. Vu, admitted to the cardiology service for a planned left heart cath tomorrow. He has atrial fibrillation with a propensity for RVR. He has coronary artery disease, status post stent deployments. He has a cardiomyopathy with an estimated EF of 30%. Follows below is a synopsis of Taryn Blackwood's findings and plan for the patient A-fib is chronic, RVR, He states he had a cardioversion x3 in 03/2021 with [facility] and it failed. Dr. Jiménez He does have an appointment on 07/04/21 with Brandy. A/c with Alida. Denies any bleeding issues. LDL goal is < 55, LDL is not on file. Pt is on a statin. Managed by PCP. CHF-Systolic, ef 30%, on entresto. MALLORIE is present:Occluded DANITA, 50-69% LICA. DECEMBER 2020.MALLORIE is being followed by surgeon Tobacco user, smokes around 1-2 ppd. Tobacco cessation advised. GERD is present. His EF is low @ 30%, will stop Diltiazem as this is a contraindication in LV dysfunction. Concerned that pt may have ischemic CM. he has known CAD and has not had an ischemic evaluation recently. This could also be HF from afib with RVR. pt needs rate control. Pt will need a lifevest due to severe LV dysfunction. pt is at increased risk for sudden cardiac due to severe LV dysfunction. will order lifevest. Offered hospital admission for AFIB RVR and Systolic Heart Failure to get rate control and proceed with LHC due to new onset CM and atypical angina. Patient is agreeable to hospital admission. Patient is currently in A. fib at a rate of 73. He is having no ischemic chest pain. He is comfortable and in no distress. He is n.p.o. after midnight in anticipation of left heart cath in the morning. [facility] History Medical History: Reports:: Atrial Fibrillation, Coronary Artery Disease, Gastroesophageal Reflux Disease(GERD), Hyperlipidemia, Hypertension Denies:: Cancer, Diabetes Mellitus Type 1, Diabetes Mellitus Type 2, Internal Pacemaker, MRSA, Seizures *Have you ever received a pneumonia vaccine?: No *Have you received a flu vaccine this season?: No Other Medical History: Reports: Arthritis, Other Other Surgeries: Yes: Colonoscopy, Coronary Stent, Other. No: Pacemaker Amputation: No Fractures: No - *Social History Smoking Status: Current some day smoker Tobacco Type: cigarettes # Packs/Day (cigarettes): 1 Alcohol Intake: never Alcohol Intake Frequency:: other Substance Use Type: denies use *Occupational Status:: other Housing: house Household Members: none *Travel in the last 8 weeks: None Family Hx:: Cancer, Diabetes, Hyperlipidemia, Hypertension Review of Systems - Constitutional Reports lack of energy - Eyes Denies change in vision - ENT Denies abnormal hearing - *Cardiovascular Reports shortness of breath with activity, Denies chest pain - *Respiratory Denies change in phlegm color, Denies chest congestion - *Gastrointestinal Denies abdominal pain - *Genitourinary Denies difficulty urinating - *Musculoskeletal Reports back pain - Integumentary/Breasts Denies yellowing of the skin - *Neurologic Denies abnormal hearing - Psychiatric Denies hopelessness - Endocrine Denies cold intolerance - Hematologic/Lymphatic Denies easy bleeding, Denies easy bruising - Allergic/Immunologic Denies wheezing Meds Home Medications Medication Instructions Recorded Confirmed Type aspirin 81 mg tablet,delayed 81 mg PO DAILY 10/14/17 06/21/21 History release metoprolol succinate 25 mg 25 mg PO DAILY tab 10/14/17 06/21/21 History tablet,extended release 24 hr multivitamin 1 tab PO DAILY 10/14/17 06/21/21 History omega-3 acid ethyl esters 1 gram 1 g PO BID cap 10/14/17 06/21/21 History capsule omeprazole 20 mg tablet,delayed 20 mg PO DAILY tab 10/14/17 06/21/21 History release rivaroxaban 20 mg tablet 20 mg PO DAILY 0
--- NOTE | 2021-06-21 20:33 | PC.NURSE ---
Addendum entered by Vasquez Sharma RN 06/21/21 20:36: Pt was very uncertain of home med list and stated he had a list but it wasn't right and needed updated. Original Note: Pt alert and oriented. When arriving to floor, this RN apoke with MIGUEL Cao in re to digoxin order, for 500 mcg. He stated since HR was only 64, when counting radially, the dose could be split 6 hrs apart 250 mcg then and again in 6 hours at 2200. Pt has remained in controlled afib.
[2021-06-21 21:23] LABS: Troponin I < 0.01 ng/ml (0.00-0.034)
[2021-06-21 22:23] VITALS: PULSE 82
[2021-06-22] VITALS (25 sets, daily range): BP systolic 85–158; BP diastolic 44–94; PULSE 47–145; RESP 14–20; TEMP 36.6–37; O2SAT 92–98
--- NOTE | 2021-06-22 | IR_ITS ---
APPROVED REPORT Patient Location: Inpatient Concrete Block Maker: MYESHA Figueredo RT (R) PROCEDURES Left heart catheterization Left ventriculogram Selective coronary angiogram Drug-eluting stent deployment to the circumflex artery Attempted cardioversion INDICATION Coronary artery disease, New onset cardiomyopathy ejection fraction 30%, Atrial fibrillation, Informed consent was obtained prior to the procedure. COMPLICATIONS NONE Estimated Blood Loss: LESS THAN 10 ML TECHNIQUE One percent lidocaine used to anesthetize the right anterior aspect of the wrist. The right radial artery was accessed via the Seldinger technique. A 6 Romanian sheath was placed in the right radial artery. 2.5 mg of verapamil, 800 mcg of nitroglycerin, 1mg Lidocaine and 5000 U Heparin were given through the arterial sheath. The Poppa catheter was advanced to the proximal radial artery however the catheter would not advance due to tortuosity. Angiography demonstrated significant tortuosity of the radial artery. An advantage wire was then used to traverse the tortuosity however even with the Amplatz portion of the wire beyond the tortuosity the catheter would not advance. At this point a 23 cm hydrophilic sheath was also attempted to advance through the tortuosity however this would not advance either. At this point the apparatus was removed the sheath was removed and hemostasis achieved using TR banding. At this point 1% lidocaine was used anesthetize the right groin the right foot arteries accessed via the Salinger technique and a 4 Romanian sheath was placed in the right femoral artery. A [id number] [id number] catheter used to perform left heart catheterization left ventriculogram and selective coronary angiogram. Because the right coronary artery was dominant and ostially occluded along with the severe stenosis in the circumflex artery which did provide some collateralization to this vessel it was felt the 70% circumflex artery lesion should be revascularized to improve revascularization in the setting of new onset cardiomyopathy. The 4 Romanian sheath was exchanged for a 6 Romanian sheath additional heparin was administered giving a therapeutic ACT. An EBU 3.5 guide catheter was placed in the left main artery and a Choice PT extra-support wire was placed distally. A 3 mm x 15 mm resolute Jb stent was deployed in the circumflex artery large obtuse marginal artery at 24 justen reducing the stenosis to 0%. ALEJANDRINA-3 flow was present before and after the procedure. At the end of the procedure patient was given additional sedation and 2 episodes of direct-current cardioversion were attempted to restore sinus rhythm. Patient had a history of improved ejection fraction while in sinus rhythm with new onset cardiomyopathy once in atrial fibrillation. Because of this history it was felt patient should undergo attempted cardioversion. After 2 attempts failed to convert patient into sinus rhythm the apparatus was removed from the chest. At this point the groin was reprepped gloves were changed sheath was removed good hemostasis was achieved using Perclose device patient was transferred to the postop putting in stable condition ANGIOGRAPHIC RESULTS The left main artery Normal The left anterior descending artery Is proximally normal with mid vessel diffuse 30% stenoses The circumflex artery Is a nondominant vessel and gives rise to a large obtuse marginal artery which has a proximal concentric 70 to 80% in-stent restenotic lesion The right coronary artery Large dominant ostially occluded and fills via [id number] collaterals The POP ventriculogram reveals Dilated ventricle reduced ejection fraction 25 to 30% The left ventricular end-diastolic
[2021-06-22 03:36] LABS: Anion Gap 8.1 mEq/L (5-15); Blood Urea Nitrogen 14 mg/dl (9-20); Calcium 9.1 mg/dl (8.4-10.2); Carbon Dioxide 30 mmol/L (22.0-30.0); Chloride 106 mmol/L (98-107); Chol/HDL Ratio 4.4 (1-3.5); Cholesterol 145 mg/dl (140-200); Creatinine Clearance Estimated 91 mL/min (50-200); Estimated Glomerular Filt Rate 94 ml/min (>60); GFR (African American) 114 ML/MIN (>60); Glucose 94 mg/dl (74-100); HDL Cholesterol 33 mg/dl (40-60); Potassium 4.1 mmoL/L (3.5-5.1); Sodium 140 mmol/L (136-145); Triglycerides 203 mg/dl (30-150); VLDL Cholesterol 41 mg/dL (0-40)
[2021-06-22 03:47] LABS: Direct LDL Cholesterol 69.12 mg/dL (100-129)
[2021-06-22 03:53] LABS: Troponin I < 0.01 ng/ml (0.00-0.034)
--- NOTE | 2021-06-22 06:08 | PC.NURSE ---
pt AxOx4, remains on room air, heart rate did drop down to mid 50's to 60's for most of the night, pt was asymptomatic with no complaints, has ambulated in room and to and from bathroom, telemetry shows a fib
--- NOTE | 2021-06-22 07:19 | HMH.ACPN2 ---
Internal Medicine - PN: Subj *Date: 06/22/21 *Time: 07:20 Interval history: Patient is remained in A. fib and overnight rate has been in the 50s or 60s. Patient is ambulating in the room. Exam Vital signs and Labs for Last 24 Hours: Temp Pulse Resp BP Pulse Ox 97.8 F 61 16 112/71 95 06/22/21 04:00 06/22/21 04:00 06/22/21 04:00 06/22/21 04:00 06/22/21 04:00 Laboratory Results - last 24 hr 06/21/21 14:55: SARS-CoV-2 (PCR) Not detected, Influenza A Untype (PCR) Not detected, Influenza Type B (PCR) Not detected 06/21/21 15:00: WBC 6.1, RBC 5.12, Hgb 14.9, Hct 47.5, MCV 92.9, MCH 29.1, MCHC 31.3 L, RDW 16.2, Plt Count 244, MPV 8.5, Neut % (Auto) 53.8, Lymph % (Auto) 35.7, [place] % (Auto) 7.6, Eos % (Auto) 1.8, Baso % (Auto) 1.2, Neut # (Auto) 3.3, Lymph # (Auto) 2.2, [place] # (Auto) 0.5, Eos # (Auto) 0.1, Baso # (Auto) 0.1 06/21/21 15:00: Sodium 141, Potassium 4.1, Chloride 106, Carbon Dioxide 29, Anion Gap 10.1, BUN 13, Creatinine 0.90, Estimated Creat Clear 91, Estimated GFR 82, Est GFR ( Amer) 100, Glucose 99, Calcium 9.1, Total Bilirubin 0.7, Direct Bilirubin 0.0, Conjugated Bilirubin 0.0, Indirect Bilirubin 0.7, Unconjugated Bilirubin 0.7, AST 26, ALT 16, Alkaline Phosphatase 99, Troponin I < 0.01, Total Protein 6.8, Albumin 3.8, TSH 2.56 06/21/21 15:00: Free T4 0.98 06/21/21 20:28: Troponin I < 0.01 06/22/21 03:20: Sodium 140, Potassium 4.1, Chloride 106, Carbon Dioxide 30, Anion Gap 8.1, BUN 14, Creatinine 0.80, Estimated Creat Clear 91, Estimated GFR 94, Est GFR ( Amer) 114, Glucose 94, Calcium 9.1, Troponin I < 0.01, Triglycerides 203 H, Cholesterol 145, LDL Cholesterol Direct 69.12 L, VLDL Cholesterol 41 H, HDL Cholesterol 33 L, Cholesterol/HDL Ratio 4.4 H I & O for Last 24 hours: Intake & Output 06/19/21 06/20/21 06/21/21 06/22/21 11:59 11:59 11:59 11:59 Weight 218 lb - Constitutional no acute distress Assessment and Plan (1) Atypical angina Status: Acute Category: Medical Code(s): I20.8 - Other forms of angina pectoris (2) SOB (shortness of breath) Status: Acute Category: Medical Code(s): R06.02 - Shortness of breath (3) Cardiomyopathy Status: Acute Category: Medical Code(s): I42.9 - Cardiomyopathy, unspecified (4) Systolic CHF Status: Acute Category: Medical Code(s): I50.20 - Unspecified systolic (congestive) heart failure (5) LV dysfunction Status: Acute Category: Medical Code(s): I51.9 - Heart disease, unspecified (6) Bilateral carotid artery stenosis Status: Chronic Category: Medical Code(s): I65.23 - Occlusion and stenosis of bilateral carotid arteries (7) Tobacco dependence syndrome Status: Chronic Category: Medical Code(s): F17.200 - Nicotine dependence, unspecified, uncomplicated (8) Atrial fibrillation with RVR Status: Acute Category: Medical Code(s): I48.91 - Unspecified atrial fibrillation (9) HLD (hyperlipidemia) Status: Chronic Qualifiers: Hyperlipidemia type: mixed hyperlipidemia Qualified Code(s): E78.2 - Mixed hyperlipidemia Category: Medical Code(s): E78.5 - Hyperlipidemia, unspecified (10) HTN (hypertension) Status: Chronic Qualifiers: Hypertension type: primary hypertension Qualified Code(s): I10 - Essential (primary) hypertension Category: Medical Code(s): I10 - Essential (primary) hypertension (11) Abnormal electrocardiography Status: Acute Category: Medical Code(s): R94.31 - Abnormal electrocardiogram [ECG] [EKG] (12) CAD (coronary artery disease) Status: Chronic Qualifiers: Coronary Disease-Associated Artery/Lesion type: [place] artery [place] vs. transplanted heart: [place] heart Associated angina: without angina Qualified Code(s): I25.10 - Atherosclerotic heart disease of [place] coronary artery without angina pectoris Category: Medical Code(s): I25.10 - Atherosclerotic heart disease of [place] coronary artery without angina pectoris
--- NOTE | 2021-06-22 07:28 | PC.NURSE ---
metoprolol given this morning unscheduled, ok with JHill
--- NOTE | 2021-06-22 07:30 | HMH.PNCARD ---
Subjective Date: 06/22/21 Time: 07:31 Principal diagnosis: atypical angina, afib with rvr, chf Interval history: 75 yo WM in bed in NAD. No chest pain or SOA. Telemetry continues to show A. fib with HR about 100-110 bpm. Pt relates plans for ablation in 02/[address] Jiménez Per Dr. Heredia pt had coronary stenting to RCA in 2002 which was noted to be occluded with collaterals in 2008 at which time stent was placed to Cx. In 2015, stenting to OM noted. Prior ischemic/nonischemic CM with EF of 30% during A. fib that improved with correction of rhythm and GDMT. Exam Vital signs and Labs for Last 24 Hours: Temp Pulse Resp BP Pulse Ox 98.0 F 54 L 14 134/72 93 L 06/22/21 07:20 06/22/21 07:20 06/22/21 07:20 06/22/21 07:20 06/22/21 07:20 Laboratory Results - last 24 hr 06/21/21 14:55: SARS-CoV-2 (PCR) Not detected, Influenza A Untype (PCR) Not detected, Influenza Type B (PCR) Not detected 06/21/21 15:00: WBC 6.1, RBC 5.12, Hgb 14.9, Hct 47.5, MCV 92.9, MCH 29.1, MCHC 31.3 L, RDW 16.2, Plt Count 244, MPV 8.5, Neut % (Auto) 53.8, Lymph % (Auto) 35.7, [place] % (Auto) 7.6, Eos % (Auto) 1.8, Baso % (Auto) 1.2, Neut # (Auto) 3.3, Lymph # (Auto) 2.2, [place] # (Auto) 0.5, Eos # (Auto) 0.1, Baso # (Auto) 0.1 06/21/21 15:00: Sodium 141, Potassium 4.1, Chloride 106, Carbon Dioxide 29, Anion Gap 10.1, BUN 13, Creatinine 0.90, Estimated Creat Clear 91, Estimated GFR 82, Est GFR ( Amer) 100, Glucose 99, Calcium 9.1, Total Bilirubin 0.7, Direct Bilirubin 0.0, Conjugated Bilirubin 0.0, Indirect Bilirubin 0.7, Unconjugated Bilirubin 0.7, AST 26, ALT 16, Alkaline Phosphatase 99, Troponin I < 0.01, Total Protein 6.8, Albumin 3.8, TSH 2.56 06/21/21 15:00: Free T4 0.98 06/21/21 20:28: Troponin I < 0.01 06/22/21 03:20: Sodium 140, Potassium 4.1, Chloride 106, Carbon Dioxide 30, Anion Gap 8.1, BUN 14, Creatinine 0.80, Estimated Creat Clear 91, Estimated GFR 94, Est GFR ( Amer) 114, Glucose 94, Calcium 9.1, Troponin I < 0.01, Triglycerides 203 H, Cholesterol 145, LDL Cholesterol Direct 69.12 L, VLDL Cholesterol 41 H, HDL Cholesterol 33 L, Cholesterol/HDL Ratio 4.4 H I & O for Last 24 hours: Intake & Output 06/19/21 06/20/21 06/21/21 06/22/21 11:59 11:59 11:59 11:59 Weight 218 lb - Constitutional no acute distress - *Routine HEENT Exam Head: Present: normocephalic Eye: Present: EOMI, PERRL ENT: Present: mucous membranes moist - *Routine Neck Exam Present: supple. Absent: lymphadenopathy - *Routine Respiratory Exam Present: CTA bilaterally - *Routine Cardiovascular Exam Present: irregularly irregular - *Routine Abdominal Exam Present: soft, normoactive bowel sounds. Absent: tenderness - *Routine Extremities Exam Absent: cyanosis, clubbing, edema - *Routine Skin Exam Present: warm. Absent: rash - *Routine Neurological Exam Present: alert, oriented X3 Progress Note: A&P (1) Atypical angina Status: Acute (2) SOB (shortness of breath) Status: Acute (3) Cardiomyopathy Status: Acute (4) Systolic CHF Status: Acute (5) LV dysfunction Status: Acute (6) Bilateral carotid artery stenosis Status: Chronic (7) Tobacco dependence syndrome Status: Chronic (8) Atrial fibrillation with RVR Status: Acute (9) HLD (hyperlipidemia) Status: Chronic (10) HTN (hypertension) Status: Chronic (11) Abnormal electrocardiography Status: Acute (12) CAD (coronary artery disease) Status: Chronic Assessment and Plan for All Diagnoses:: 1. Plan for C today. 2. Consider cardioversion as patient has been on intermediate project manager anticoagulation. 3. Cardiomyopathy, on metoprolol and entresto along with digoxin. No need for diuretic at this time. 4. A. fib, on Xarelto 5. HLD, will start statin therapy
--- NOTE | 2021-06-22 08:10 | PC.NURSE ---
Pt to catheterization laboratory technician @ 08.
--- NOTE | 2021-06-22 20:24 | PC.NURSE ---
Pt fitted for life vest today. Pts HR did increase up to 150 when up and walking/standing in bathroom and shaving. This RN encouraged pt to rest. Meds given per nov. Held am entresto and dig per MIGUEL Cao and he stated to give the dig dose this evening. Have faxed to pharmacy. Pt currently afib with a rate of 107 on mx.
[2021-06-23] VITALS: PULSE 100
[2021-06-23 04:00] VITALS: PULSE 100
[2021-06-23 04:45] VITALS: BP 127/70; PULSE 59; RESP 18; TEMP 36.7; O2SAT 94
--- NOTE | 2021-06-23 07:40 | HMH.DCSUM ---
General - General Admission date:: 06/21/21 Discharge date: 06/23/21 HPI HPI: Patient is a 75-year-old white male, patient of Dr. Vu, admitted to the cardiology service for a planned left heart cath tomorrow. He has atrial fibrillation with a propensity for RVR. He has coronary artery disease, status post stent deployments. He has a cardiomyopathy with an estimated EF of 30%. Follows below is a synopsis of Taryn Blackwood's findings and plan for the patient A-fib is chronic, RVR, He states he had a cardioversion x3 in 03/2021 with [facility] and it failed. Dr. Jiménez He does have an appointment on 07/04/21 with Brandy. A/c with Alida. Denies any bleeding issues. LDL goal is < 55, LDL is not on file. Pt is on a statin. Managed by PCP. CHF-Systolic, ef 30%, on entresto. MALLORIE is present:Occluded DANITA, 50-69% LICA. DECEMBER 2020.MALLORIE is being followed by surgeon Tobacco user, smokes around 1-2 ppd. Tobacco cessation advised. GERD is present. His EF is low @ 30%, will stop Diltiazem as this is a contraindication in LV dysfunction. Concerned that pt may have ischemic CM. he has known CAD and has not had an ischemic evaluation recently. This could also be HF from afib with RVR. pt needs rate control. Pt will need a lifevest due to severe LV dysfunction. pt is at increased risk for sudden cardiac due to severe LV dysfunction. will order lifevest. Offered hospital admission for AFIB RVR and Systolic Heart Failure to get rate control and proceed with LHC due to new onset CM and atypical angina. Patient is agreeable to hospital admission. Patient is currently in A. fib at a rate of 73. He is having no ischemic chest pain. He is comfortable and in no distress. He is n.p.o. after midnight in anticipation of left heart cath in the morning. Hospital Course Hospital Course: Patient was admitted from cardiology clinic with symptoms of congestive heart failure and concern for ischemic cardiomyopathy due to uncontrolled A. fib and previous coronary artery disease. Plan was for admission, evaluation with echocardiogram and left heart catheterization. Patient was admitted and underwent echocardiogram which revealed an EF of 30%. Left heart catheterization was performed on June [address] Hull with findings as follows: MPRESSION New onset cardiomyopathy likely secondary to a combination of ischemic heart disease as well as tachycardia induced cardiomyopathy Chronically occluded dominant right coronary artery which partially fills via a large nondominant circumflex artery which had a severe stenosis in a large obtuse marginal artery which was successfully stented with 1 drug-eluting stent Dilated ventricle likely secondary to tachycardia and ischemic cardiomyopathy combination Unsuccessful cardioversion with patient maintaining atrial fibrillation PLAN 1. Continue Xarelto 20 mg daily for atrial fibrillation 2. Plavix 75 mg daily plus aspirin 81 mg daily for the next month. In 1 month patient can drop the aspirin and continue on Xarelto and Plavix 3. LDL less than 55 4. Avoidance of diltiazem and or verapamil 5. Continue with metoprolol and digoxin for rate control. It is possible patient may not require digoxin. It is important to keep the dig level less than 1.0 6. Standard therapy for ischemic heart disease which should include Entresto and long-acting metoprolol 7. I recommend a LifeVest prior to discharge home given patient's increased risk for sudden cardiac in the setting of severely depressed ejection fraction. Because I believe a large component of this cardiomyopathy is tachycardia induced I do anticipate the ejection fraction will quickly improve with discontinuation of diltiazem and implementation of LV dysfunction afterload reducing medicines. It is reasonable to repeat the echocardiogram in 2 to 4 weeks to determine if ejection fraction is above 35% which would allow patient to discon
[2021-06-23 07:44] LABS: Chloride 102 mmol/L (98-107)
[2021-06-23 07:45] LABS: Potassium 4.2 mmoL/L (3.5-5.1); Sodium 140 mmol/L (136-145)
[2021-06-23 07:47] LABS: Blood Urea Nitrogen 15 mg/dl (9-20); Creatinine Clearance Estimated 91 mL/min (50-200); Estimated Glomerular Filt Rate 82 ml/min (>60); GFR (African American) 100 ML/MIN (>60)
[2021-06-23 07:48] LABS: Anion Gap 11.2 mEq/L (5-15); Calcium 9.3 mg/dl (8.4-10.2); Carbon Dioxide 31 mmol/L (22.0-30.0); Glucose 119 mg/dl (74-100)
[2021-06-23 08:00] VITALS: BP 110/55; PULSE 120; PULSE 62; RESP 18; TEMP 36.6; O2SAT 96; O2SAT 99
[2021-06-23 08:10] LABS: Basophils % 0.5 % (0.1-2.0); Eosinophils # 0.1 K/mm3 (0.0-0.4); Eosinophils % 0.8 % (0.1-12.0); Hematocrit 50.7 % (42.0-52.0); Hemoglobin 15.9 g/dL (14.1-18.0); Lymphocytes % 26.9 % (10-50); Mean Corpuscular HGB Conc 31.4 g/dL (31.8-35.4); Mean Corpuscular Hemoglobin 28.7 pg (27.0-31.2); Mean Corpuscular Volume 91.5 fl (80-94); Mean Platelet Volume 7.8 fl (7.4-10.4); Monocytes # 0.4 K/mm3 (0.1-1.0); Monocytes % 6.1 % (1.7-9.3); Neutrophils # 4.8 K/mm3 (1.8-7.8); Neutrophils % 65.8 % (37.0-80.0); Platelet Count 235 K/mm3 (142-424); Red Blood Count 5.54 M/mm3 (4.60-6.20); Red Cell Distribution Width 15.3 % (11.5-17.5); White Blood Count 7.3 K/mm3 (4.8-10.8)
--- NOTE | 2021-06-23 08:19 | HMH.PHACLD ---
Mino Hsu has received discharge medication counseling on the following medications: METOPROLOL SUCCINATE 50MG ENTRESTO ASPIRIN PLAVIX SIMVASTATIN NEW PRESCRIPTIONS FOR METOPROLOL, PLAVIX, AND ASPIRIN. NEW PRESCRIPTIONS WERE SENT TO [facility]. PATIENT VERBALIZED UNDERSTANDING AND HAD NO QUESTIONS AT THIS TIME. -RUPA RENEE, PHARMD
[2021-06-23 08:55] VITALS: PULSE 120
--- NOTE | 2021-06-23 09:13 | PC.NURSE ---
pt left floor at this time
== END 2021-06-23 09:15 | disposition home or self-care (01) ==
PROVIDERS: Internal Medicine; Nurse Practitioner Family; Admitting Provider Emergency Medicine; PCP Family Medicine; Visit Provider Family Medicine
DX: I48.91 Unspecified atrial fibrillation (principal); I25.5 Ischemic cardiomyopathy; F17.210 Nicotine dependence, cigarettes, uncomplicated; I25.10 Atherosclerotic heart disease of native coronary artery without angina pectoris; Z95.5 Presence of coronary angioplasty implant and graft; Z79.01 Long term (current) use of anticoagulants; T82.855A Stenosis of coronary artery stent, initial encounter; Y83.1 Surgical operation with implant of artificial internal device as the cause of abnormal reaction of the patient, or of later complication, without mention of misadventure at the time of the procedure; I50.21 Acute systolic (congestive) heart failure; I65.23 Occlusion and stenosis of bilateral carotid arteries; I11.0 Hypertensive heart disease with heart failure; Z20.822 Contact with and (suspected) exposure to COVID-19; I25.82 Chronic total occlusion of coronary artery; I87.8 Other specified disorders of veins
CPT/HCPCS: G0378; 36415; 80048; 80061; 80076; 84439; 84443; 84484; 85025; 92928; 92960; 93458; 99152; 99153; C1725; C1760; C1769; C1876; C1894; C9600; C9803; J1644; U0003; U0005

== ENCOUNTER 2021-07-02 19:03 | Emergency (ER) | payer MEDICARE, BC, SELFPAY ==
[2021-07-02 19:04] VITALS: BP 124/78; PULSE 73; RESP 18; TEMP 36.7; O2SAT 97; BMI 29.9
--- NOTE | 2021-07-02 20:22 | HMH.EDGENADL ---
ED Disposition Clinical Impression: Lumbar radiculopathy Disposition: Home, Self-Care Condition on Discharge: Good Instructions: DI for Low Back Pain Additional Instructions: Follow-up with your appointment 2 more afternoon with your orthopedic doctor. Tomorrow morning when you wake up to take 400 mg of ibuprofen and 1 g of Tylenol, you may repeat this after 6 hours. Emergency department for any new or concerning symptoms. Referrals: Cheko Heredia MD [Primary Care Provider] - - Critical Care Critical Care Time: No Attestation: On 07/02/21, the high probability of a clinically significant, sudden or life threatening deterioration of the following system(s) required my full and direct attention, intervention and personal management. The time I documented below is in addition to time spent performing reported procedures but includes the following listed in this critical care notation. Medical Decision Making - Eliel Inquiry Pt receiving controlled substance: No Vital Signs: 07/02/21 19:04 07/02/21 20:32 Temperature 98.1 F 98.7 F Temperature Source Oral Oral Pulse Rate 60 Pulse Rate [Right Radial] 73 Respiratory Rate 18 16 Blood Pressure 117/91 H Blood Pressure [Right Arm] 124/78 Blood Pressure Mean [Right Arm] 93 Blood Pressure Source Automatic Cuff Blood Pressure Source [Right Arm] Automatic Cuff Blood Pressure Position Supine Blood Pressure Position [Right Arm] Supine 02 Sat by Pulse Oximetry 97 Oxygen Delivery Method Room Air Room Air Orders (Tests/Meds): ED MEDICATIONS Discontinued Medications Generic Name Dose Route Start Last Admin Trade Name Freq PRN Reason Stop Dose Admin Ketorolac Tromethamine 15 mg 07/02/21 19:36 07/02/21 19:52 Ketorolac 30mg/Ml Vial IM 07/02/21 19:37 15 mg ONCE ONE Administration Methylprednisolone Sodium Succinate 125 mg 07/02/21 19:36 07/02/21 19:52 Methylprednisolone Sod Succ 125mg Vial IM 07/02/21 19:37 125 mg ONCE ONE Administration Morphine Sulfate 4 mg 07/02/21 19:36 07/02/21 19:51 Morphine 4mg/Ml Syringe IM 07/02/21 19:37 4 mg ONCE ONE Administration Ondansetron HCl 4 mg 07/02/21 19:36 Ondansetron 4mg/2ml Vial IM 07/02/21 19:37 ONCE ONE Ondansetron HCl 4 mg 07/02/21 19:45 07/02/21 19:52 Ondansetron 4mg Odt SL 07/02/21 19:46 4 mg ONCE ONE Administration Medical Decision Narrative: Patient is a 75-year-old male presenting to the emergency department with chief complaint of back pain. Differential diagnosis includes radiculopathy, sciatica, musculoskeletal. This plan to treat the patient symptomatically, patient back pain is consistent with his prior exacerbations of his chronic back pain. Patient was given morphine, Solu-Medrol and Toradol, on reassessment patient had significant improvement, states that he was almost able to fully stand up without significant pain. Given this as well as close follow-up, patient was discharged with instruction to take Motrin and acetaminophen tomorrow morning and follow-up at his appointment. Patient is comfortable with this plan, and stated that he would like to go home and eat. General Adult HPI - General Chief complaint: Back Pain/Injury Stated complaint: pain in back Time Seen by Provider: 07/02/21 19:25 Mode of Arrival: Ambulatory Limitations: No Limitations Description of Symptoms (Recalled from ER Triage Doc. by RN): Pt reports intermittent stabbing lower back pain, worse with movement. Pt has hx of chronic back pain but states it has gotten worse tonight. - History of Present Illness HPI narrative: Patient is a 75-year-old male who presents to the emergency department with chief complaint of back pain, patient is complaining of a stabbing right-sided back pain has occurred before. Pain does not significantly radiate, and is worse with standing up tall, slightly improved with bending over. Patient also called orthopedic physician and has a
[2021-07-02 20:32] VITALS: BP 117/91; PULSE 60; RESP 16; TEMP 37.1; O2SAT 96
== END 2021-07-02 20:33 | disposition home or self-care (01) ==
PROVIDERS: Emergency Provider Emergency Medicine; PCP Family Medicine
DX: M54.16 Radiculopathy, lumbar region (principal); I48.91 Unspecified atrial fibrillation; I25.10 Atherosclerotic heart disease of native coronary artery without angina pectoris; K21.9 Gastro-esophageal reflux disease without esophagitis; E78.5 Hyperlipidemia, unspecified; I10 Essential (primary) hypertension
CPT/HCPCS: 96372; 99281

== ENCOUNTER → 2021-07-09 14:46 | Outpatient (POV) | payer MEDICARE, BC, SELFPAY ==
[2021-07-09 15:33] VITALS: BP 97/68; PULSE 78; RESP 18; O2SAT 99; BMI 29.9
--- NOTE | 2021-07-09 16:11 | HMH.PMCON ---
Assessment and Plan (1) Degenerative joint disease (DJD) of lumbar spine Status: Chronic Category: Medical Code(s): M47.816 - Spondylosis without myelopathy or radiculopathy, lumbar region (2) Lumbar radiculopathy Status: Chronic Category: Medical Code(s): M54.16 - Radiculopathy, lumbar region - Assessment and plan all Dx Assessment and Plan for all problems:: Patient is here today for complaints of low back parents radiation into bilateral lower extremities with numbness and tingling. Patient is on Xarelto therapy which was started 2 weeks ago after having a cardiac stent. He is not able to come off of his anticoagulation therapy. We did discuss starting on a low-dose of tramadol until he can undergo injective therapy, however, the patient has been used to taking Percocet. He is unsure if he wishes to start tramadol. He will discuss his options with his primary care provider and if he does decide to start tramadol he can contact the clinic and we will order the medication for him. Risks and benefits of the medication have been explained in detail to the patient. If side effects do present with the medication, patient has been advised to stop the medication immediately and call the clinic. The patient has been advised to consult with his/her primary care provider and pharmacist regarding drug-drug interaction of medications currently prescribed. Patient has been instructed to contact the clinic with any concerns before the next appointment. Dr. Victor has reviewed this note and agrees with this plan of care. This note was dictated using voice recognition software and make contain errors or omissions. HPI - Data of Consult Patient: new to practice Consult date: 07/09/21 Requesting Physician: Bernie Jean-Baptiste APRN - Consult Narrative Reason for consult: Low back pain History of present illness: Mr. Hsu is a 75 year old male who presents today for consultation for chronic low back pain. Patient says that the pain radiates into his right low back area and into the left knee and side. He says that he does have numbness and tingling in his lower extremities. He does not have numbness and tingling or pain in his feet. He reports he has bought a $5000 mattress to try to relieve pain, but did not get any relief. In 2010 the patient did have surgical intervention for pinched nerve with Dr. Eddi. He says he was doing very well until 2016 for which he had 3 to 4 days of severe back pain for which she was also in the hospital. The patient says that he has had injective therapy in our clinic in the past and has not gotten any relief. At his last visit in 2018, Isaías Carrillo APRN did discuss with the patient intrathecal therapy. Patient declined at that time. He is now back to discuss options. Unfortunately, the patient was started on Xarelto 2 weeks ago for stenting. The patient is unable to come off of his anticoagulation therapy for injective therapy at this time. He does rate his pain a 6 out of 10. And March 2021 he was given Percocet 5 mg 1 tablet p.o. 3 times daily and was taking diazepam as well. The patient has not gotten a refill on Percocet since 04/11/2021. Patient's pain is worse with standing or walking and does improve somewhat with sitting. He does does not have change in symptoms with leaning forward. He denies saddle anesthesia or changes in bowel or bladder habit. Patient is not interested in injective therapy. Ice and heat therapies have not helped the patient. He does report he has been taking ibuprofen, though also prescribe Xarelto. CC: Bernie Jean-Baptiste APRN [facility] History I have reviewed the patient's past medical history: Yes Medical History: Reports:: Atrial Fibrillation, Coronary Artery Disease, Gastroesophageal Reflux Disease(GERD), Hyperlipidemia, Hypertension Denies:: Cancer, Diabetes Mellitus Type 1, Diabetes Mellitus Type 2, Internal Pacemaker, MRSA, Seizures *Have you ever received a pneumonia
== END ==
PROVIDERS: Visit Provider Clinical Nurse Specialist Family Health
DX: M47.896 Other spondylosis, lumbar region (principal); M54.16 Radiculopathy, lumbar region
CPT/HCPCS: 99202; G0463

== ENCOUNTER 2021-07-23 12:58 | Outpatient (RCR) | payer MEDICARE, BC, SELFPAY | END 2021-07-23 13:58 | disposition home or self-care (01) | LOC: PT 12:58 | PROVIDERS: Visit Provider Internal Medicine | DX: I25.10 Atherosclerotic heart disease of native coronary artery without angina pectoris (principal); Z95.5 Presence of coronary angioplasty implant and graft ==

== ENCOUNTER 2022-02-20 14:39 | Emergency (ER) | payer MEDICARE, BC, SELFPAY ==
--- NOTE | 2022-02-20 14:32 | ECG_ITS ---
APPROVED REPORT Exam: Resting ECG HR:73 bpm ECG Measurements Heart Rate 73 AXES IN 195 P 82 QRSd 110 QRS 74 QT 385 T 52 QTc 411 Conclusion SINUS RHYTHM WITH SINUS ARRHYTHMIA NORMAL ECG UNCONFIRMED REPORT Electronically signed by : Cheko Castaneda MD 02/20/2022 16:50:29
--- NOTE | 2022-02-20 14:50 | XR_ITS ---
FINAL REPORT CLINICAL HISTORY: chest pain COMPARISON: 06/15/2021 FINDINGS: TWO-VIEW CHEST There is cardiomegaly. The mediastinum is normal. The lungs are clear. There is no pneumothorax. IMPRESSION: No acute cardiopulmonary process. Reviewed, Interpreted and Dictated by Ashish Harvey III, MD Transcribed by Marilia Wilkerson Authenticated and [facility]
[2022-02-20 14:52] VITALS: BP 112/89; PULSE 83; O2SAT 96
[2022-02-20 15:00] VITALS: BP 109/68; BP 112/89; PULSE 68; PULSE 84; RESP 15; RESP 17; TEMP 36.6; O2SAT 94; O2SAT 96; BMI 29.2
--- NOTE | 2022-02-20 15:07 | PC.NURSE ---
pt refusing blood draw at this time
--- NOTE | 2022-02-20 15:08 | PC.NURSE ---
Dr. Fulton at BS
--- NOTE | 2022-02-20 15:23 | PC.NURSE ---
Swab sent to lab
[2022-02-20 15:31] VITALS: BP 123/71; PULSE 61; RESP 17; O2SAT 95
[2022-02-20 15:33] LABS: Coronavirus 19, PCR Not Detected (NotDetected); Influenza A, PCR Not Detected (NotDetected); Influenza B, PCR Not Detected (NotDetected)
--- NOTE | 2022-02-20 15:41 | HMH.EDGENADL ---
ED Disposition Clinical Impression: Bronchitis Disposition: Home, Self-Care Condition on Discharge: Fair Additional Instructions: Return to emergency department for any new or concerning symptoms, if you begin having increased difficulty breathing, begin coughing up blood, or have additional symptoms, have acute chest pain that does not occur without cough or other concerns please return to be reassessed. Would also like to have you follow-up with your primary care physician. Prescriptions: Azithromycin [Z-Demond 250mg Tab*] 250 mg PO UD DOSE PK #6 tab Transmission Status: Received by [facility] Referrals: Cheko Heredia MD [Primary Care Provider] - - Critical Care Critical Care Time: No Attestation: On 02/20/22, the high probability of a clinically significant, sudden or life threatening deterioration of the following system(s) required my full and direct attention, intervention and personal management. The time I documented below is in addition to time spent performing reported procedures but includes the following listed in this critical care notation. Medical Decision Making - Medical Records Medical records reviewed: Yes: I reviewed the patient's medical records. - Eliel Inquiry Pt receiving controlled substance: No Eliel was queried for this patient: No Vital Signs: 02/20/22 14:52 02/20/22 15:00 02/20/22 15:31 Temperature 97.8 F Temperature Source Oral Pulse Rate 83 68 61 Pulse Rate [Left Radial] 84 Respiratory Rate 15 17 Blood Pressure 112/89 109/68 L 123/71 Blood Pressure [Right Arm] 112/89 Blood Pressure Mean 81 91 Blood Pressure Mean [Right Arm] 96 Blood Pressure Source Automatic Cuff Blood Pressure Position Sitting 02 Sat by Pulse Oximetry 96 94 L 95 Oxygen Delivery Method Room Air Room Air 02/20/22 16:00 02/20/22 16:30 Temperature Temperature Source Pulse Rate 62 60 Pulse Rate [Left Radial] Respiratory Rate 18 17 Blood Pressure 106/73 L 105/67 L Blood Pressure [Right Arm] Blood Pressure Mean 84 81 Blood Pressure Mean [Right Arm] Blood Pressure Source Blood Pressure Position 02 Sat by Pulse Oximetry 98 97 Oxygen Delivery Method - Lab Data Lab results reviewed: Yes: I reviewed the patient's lab results. Lab Results 02/20/22 15:22: SARS-CoV-2 (PCR) Not detected, Influenza A Untype (PCR) Not detected, Influenza Type B (PCR) Not detected Medical Decision Narrative: Patient is 76-year-old male presenting to the emergency department chief complaint of cough and pain with inspiration and cough. Initially intended to get labs, however patient refused the labs from both nursing, as well as myself. Reviewed with patient that given his history of a cardiac stent, discussed patient's heart, as well as additional signs of inflammation, however patient refused stating that he wanted to be assessed for pneumonia. Patient is nontachycardic on evaluation, does have a wet sounding cough on eval. Patient has no history of DVT, is not tachycardic, do not have a high concern for a pulmonary embolism at this time. Did discuss with patient getting a chest x-ray as well as influenza and covid evaluatoin. Patient did not have lenin wheezing on exam, any additional signs of respiratory distress. Chest x-ray did not show focal consolidation, however given patient's significant smoking history, mild wheezing on exam, will give patient azithromycin to reduce respiratory inflammation. Patient was covid negative as well as influenza negative. Discussed this with patient, as well as reevaluation. General Adult HPI - General Chief complaint: Upper Respiratory Infection Stated complaint: CP Time Seen by Provider: 02/20/22 15:10 Mode of Arrival: Ambulatory Limitations: No Limitations Description of Symptoms (Recalled from ER Triage Doc. by RN): pt to ed c/o left sided chest discomfort, cough and shortness of breath x3 days. pt states his chest hurts mo
[2022-02-20 16:00] VITALS: BP 106/73; PULSE 62; RESP 18; O2SAT 98
[2022-02-20 16:30] VITALS: BP 105/67; PULSE 60; RESP 17; O2SAT 97
--- NOTE | 2022-02-20 16:57 | PC.NURSE ---
Calling lab to check on covid/flu results. Chelsea reports it has 5 minutes left.
--- NOTE | 2022-02-20 17:07 | PC.NURSE ---
pt up out of ED room 2 and states, i will be back in a minute, i need to use the restroom, and my back is killing me. i showed him the restroom and he proceeds to say he will be back in a minute and goes towards the waiting room. He does not have an IV in. We are still waiting on his covid results; Dr. Fulton is aware.
--- NOTE | 2022-02-20 17:19 | PC.NURSE ---
pt has returned back to ED room 2 from [facility]. He is sitting up in chair.
[2022-02-20 17:33] VITALS: BP 110/64; PULSE 68; RESP 17; TEMP 36.6; O2SAT 97
== END 2022-02-20 17:35 | disposition home or self-care (01) ==
PROVIDERS: Emergency Provider Emergency Medicine; PCP Family Medicine
DX: J40 Bronchitis, not specified as acute or chronic (principal); Z88.2 Allergy status to sulfonamides; I48.91 Unspecified atrial fibrillation; I25.10 Atherosclerotic heart disease of native coronary artery without angina pectoris; K21.9 Gastro-esophageal reflux disease without esophagitis; E78.5 Hyperlipidemia, unspecified; I10 Essential (primary) hypertension; M19.90 Unspecified osteoarthritis, unspecified site; Z72.0 Tobacco use; Z83.3 Family history of diabetes mellitus; Z83.438 Family history of other disorder of lipoprotein metabolism and other lipidemia; Z82.49 Family history of ischemic heart disease and other diseases of the circulatory system; Z80.9 Family history of malignant neoplasm, unspecified
CPT/HCPCS: 71045; 93005; 99284; C9803; U0003; U0005

== ENCOUNTER → 2022-02-27 13:41 | Outpatient (CLI) | payer MEDICARE, BC, SELFPAY ==
--- NOTE | 2022-02-27 13:46 | XR_ITS ---
FINAL REPORT CLINICAL HISTORY: cough, soa, dizziness COMPARISON: February 20, 2022 FINDINGS: Two views of the chest were obtained. The heart size and pulmonary vascularity are within normal limits. The mediastinum is normal. The lungs are somewhat hyperinflated. No acute pulmonary abnormality is identified. There is no pneumothorax. The bony thorax is intact. IMPRESSION: No active cardiopulmonary disease. Reviewed, Interpreted and Dictated by Ashish Harvey III, MD Transcribed by Du Gandara Authenticated and [facility]
== END ==
PROVIDERS: PCP Family Medicine; Visit Provider Nurse Practitioner
DX: R05.9 Cough, unspecified (principal)
CPT/HCPCS: 71046

== ENCOUNTER → 2022-04-01 09:44 | Outpatient (CLI) | payer MEDICARE, BC, SELFPAY ==
[2022-04-01 10:20] VITALS: PULSE 77; PULSE 80
== END ==
PROVIDERS: PCP Family Medicine; Visit Provider Family Medicine
DX: R06.02 Shortness of breath (principal); F17.210 Nicotine dependence, cigarettes, uncomplicated
CPT/HCPCS: 94060; 94640

== ENCOUNTER → 2022-04-19 10:04 | Outpatient (CLI) | payer MEDICARE, BC, SELFPAY ==
--- NOTE | 2022-04-19 10:08 | CA_ITS ---
APPROVED REPORT EXAM: Comprehensive 2D, Doppler, and color-flow Echocardiogram Ribbon Winder: Kailee Murdock CRT Ht: 5 ft 11 in Wt: 210lbs BSA: 2.15 BP: 000/00 mmHg Indications: CAD, AFIB, ABN EKG, Ablation 08/05, sob,HTN, HLD, smoker 2D Dimensions LVOT 2.01 cm (M/F) 1.5-2.5 LA Volume 38.10 mL LA Volume Index 17.70 mL/m2 (M/F) 16-34 M-Mode Dimensions RVDd 2.81 cm (0.9-2.6) LA Diam 3.80 cm (1.9-4.0) LVDd 3.98 cm (3.5-5.7) Ao Diam 4.41 cm (2.0-3.7) LVDs 3.21 cm (3.5-5.7) IVSd 2.25 cm (0.6-1.1) PWd 1.20 cm (0.6-1.1) EF (Teich) 40.30% FS 19.30% EDV (Teich) 69.20 mL TAPSE 1.38 (<1.7) ESV (Teich) 41.30 mL LV Diastology E Decel Time 323.00 (160-240 msec) E/A Ratio 0.76 MED E' 4.90 (< 7 cm/sec) MED A' 4.20 cm/s E'/MED E' Ratio 9.43 (>14) LAT E' 7.80 (<10 cm/sec) LAT A' 7.00 cm/s E/LAT E' Ratio 5.92 (>14) Aortic Valve AI PHT 425.00 ms AO Peak GR. 6.60 mmHg Mitral Valve MV E Max Vladimir. 46.00 (40-130 cm/s) MV A Velocity 61.00 (40-130 cm/s) E/A Ratio 0.76 MV Decel. Time 323.00 (160-240 ms) MV PHT 95.00 ms Pulmonary Valve PV Peak Velocity 209.00 (50-150 cm/s) Tricuspid Valve TR P. Velocity 267.00 cm/s RAP Estimate 10.00 mmHg RVSP 38.50 mmHg Left Ventricle Left atrium is mildly enlarged, left ventricle is normal size mild concentric left ventricular hypertrophy, estimated ejection fraction 55% with no regional wall motion abnormality, grade 1 diastolic dysfunction seen without tissue Doppler evidence of raise left atrial pressure. Right Ventricle Right atrium and right ventricle and mildly enlarged with normal contractility. Aortic Valve Aortic valve is minimally thickened and calcified without aortic stenosis or aortic insufficiency. Mitral Valve Mitral valve is minimally thickened, there is mild mitral regurgitation. Tricuspid Valve Tricuspid valve grossly normal, there is mild tricuspid regurgitation, tricuspid regurgitation jet velocity is inadequate for calculation of the right ventricular systolic pressure. Pulmonic Valve Pulmonic valve is poorly visualized. Great Vessels Aortic root is normal size. Inferior vena cava is poorly visualized. Pericardium No significant pericardial effusion noted. Conclusion 1. Biatrial enlargement, normal left ventricular size, mild concentric left ventricular hypertrophy, estimated ejection fraction 55% with no regional wall motion abnormality, grade 1 diastolic dysfunction seen without tissue Doppler evidence of raise left atrial pressure. 2. Mildly enlarged right ventricle with normal contractility. 3. Mild mitral and tricuspid regurgitation. 4. No significant pericardial effusion. 5. Inferior vena cava is poorly visualized. Electronically signed by : Teto Dennis MD 04/19/2022 13:00:26
== END ==
PROVIDERS: PCP Family Medicine; Visit Provider Physician Assistant
DX: R06.02 Shortness of breath (principal)
CPT/HCPCS: 93306

== ENCOUNTER 2022-06-27 13:24 | Emergency (ER) | payer MEDICARE, BC, SELFPAY ==
[2022-06-27 13:40] VITALS: BP 123/84; PULSE 82; RESP 18; TEMP 36.8; O2SAT 94; BMI 29.0
--- NOTE | 2022-06-27 14:02 | EXP.UTC ---
Discharge Plan Disposition Patient Disposition: Home, Self-Care Condition: Good Prescriptions Prescriptions: New azithromycin [Zithromax] 250 mg tablet 250 mg PO UD DOSE PK Qty: 6 0RF Rx Instructions: Take two (2) tablets today, then one (1) tablet days #2 thru #5 benzonatate [benzonatate] 100 mg capsule 100 mg PO TIDP PRN (Reason: Cough) Qty: 30 0RF prednisone [prednisone] 20 mg tablet 20 mg PO BID 4 Days Qty: 8 0RF No Action omega-3 acid ethyl esters [Lovaza] 1 gram capsule 1 g PO BID pantoprazole 40 mg tablet,delayed release (DR/EC) 40 mg PO DAILY Label Comments: TAKE 1 TABLET BY MOUTH DAILY. docusate sodium 100 mg capsule 100 mg PO BID atorvastatin 10 mg tablet 10 mg PO DAILY duloxetine 60 mg capsule,delayed release(DR/EC) 60 mg PO DAILY ranolazine [Ranexa] 500 mg tablet extended release 12 hr 500 mg PO BID Qty: 60 3RF tamsulosin 0.4 mg capsule 0.4 mg PO HS cholecalciferol (vitamin D3) 10 mcg (400 unit) capsule 400 units PO DAILY psyllium husk [Daily Fiber] 0.4 gram capsule 0.4 g PO DAILY diazepam 5 mg tablet 5 mg PO TIDP PRN (Reason: Anxiety) oxycodone-acetaminophen 5-325 mg tablet 1 tab PO ONCE bumetanide 1 mg tablet 1 mg PO DAILY Qty: 90 3RF metformin 500 mg tablet 500 mg PO BID rivaroxaban 20 mg tablet 20 mg PO DAILY Qty: 30 5RF carvedilol [Coreg] 3.125 mg tablet 3.125 mg PO BID Qty: 60 3RF Rx Instructions: must administer with a meal/food nitroglycerin [Nitrostat] 0.4 mg tablet, sublingual 0.4 mg SL Q5M PRN (Reason: chest pain) Qty: 20 0RF Rx Instructions: do not exceed 3 doses per episode clopidogrel 75 MG tablet 75 mg PO DAILY Referrals Follow up/Referrals: Cheko Heredia MD [Primary Care Provider] - See instructions Activity Restrictions/Add. Instructions Additional Instructions/Restrictions: Drink plenty of fluids. Take tylenol or ibuprofen for pain or fever. Take the medications as directed. Follow up with your regular doctor. GO TO THE ER FOR ANY WORSENING SYMPTOMS Clinical Impressions Clinical Impression: Sinusitis Instructions Patient Instructions: Sinusitis, DI for Sinusitis Discharge ED Provider: Karson Gasca [facility] General Stated complaint: Congestion, drainage, [place] Mode of Arrival: Ambulatory Source of Information: Patient Limitations: No Limitations Time Seen by Provider: 06/27/22 14:02 Description of Symptoms (Recalled from Triage Doc. by RN): PATIENT C/O CHEST AND HEAD CONGESTION THAT STARTED LAST FRIDAY HEENT Symptoms (Recalled from RN notes): Yes Resp Symptoms (Recalled from RN notes): No Skin Symptoms (Recalled from RN notes): No MS Symptoms (Recalled from RN notes): No Functional Status (Recalled from RN notes): WNL History of Present Illness Provider Complaint: HE states that he has had sinus congestion for the past 2 days. Related Data Home Medications Medication Instructions Recorded Confirmed omega-3 acid ethyl esters 1 gram 1 g PO BID Supplement 10/14/17 05/01/22 capsule (Lovaza) cholecalciferol (vitamin D3) 10 400 units PO DAILY Supplement 05/09/21 05/01/22 mcg (400 unit) capsule diazepam 5 mg tablet 5 mg PO TIDP PRN Anxiety 05/09/21 05/01/22 psyllium husk 0.4 gram capsule 0.4 g PO DAILY constipation 05/09/21 05/01/22 (Daily Fiber) tamsulosin 0.4 mg capsule 0.4 mg PO HS prostate problems 05/09/21 05/01/22 clopidogrel 75 mg tablet 75 mg PO DAILY High cholesterol 07/02/21 05/01/22 oxycodone-acetaminophen 5 mg-325 1 tab PO ONCE 07/18/21 05/01/22 mg tablet docusate sodium 100 mg capsule 100 mg PO BID 08/29/21 05/01/22 pantoprazole 40 mg tablet,delayed 40 mg PO DAILY 08/29/21 05/01/22 release metformin 500 mg tablet 500 mg PO BID 11/28/21 05/01/22 atorvastatin 10 mg tablet 10 mg PO DAILY 02/27/22 05/01/22 duloxetine 60 mg capsule,delayed 60 mg PO DAILY 02/27/22 05/01/22
[2022-06-27 14:38] VITALS: BP 123/84; PULSE 82; RESP 18; TEMP 36.8; O2SAT 94
== END 2022-06-27 14:40 | disposition home or self-care (01) ==
PROVIDERS: Emergency Provider Nurse Practitioner Family; PCP Family Medicine
DX: J32.9 Chronic sinusitis, unspecified (principal)
CPT/HCPCS: 99212; G0463

== ENCOUNTER 2022-07-23 13:02 | Emergency (ER) | payer MEDICARE, BC, SELFPAY ==
[2022-07-23 13:17] VITALS: PULSE 72; RESP 16; O2SAT 98; BMI 33.9
[2022-07-23 14:10] VITALS: BP 150/88; PULSE 72; RESP 16; TEMP 36.7; O2SAT 98; BMI 29.9
--- NOTE | 2022-07-23 14:57 | EXP.UTC ---
Discharge Plan Disposition Patient Disposition: Home, Self-Care Condition: Good Prescriptions Prescriptions: No Action omega-3 acid ethyl esters [Lovaza] 1 gram capsule 1 g PO BID pantoprazole 40 mg tablet,delayed release (DR/EC) 40 mg PO DAILY Label Comments: TAKE 1 TABLET BY MOUTH DAILY. docusate sodium 100 mg capsule 100 mg PO BID atorvastatin 10 mg tablet 10 mg PO DAILY duloxetine 60 mg capsule,delayed release(DR/EC) 60 mg PO DAILY ranolazine [Ranexa] 500 mg tablet extended release 12 hr 500 mg PO BID Qty: 60 3RF tamsulosin 0.4 mg capsule 0.4 mg PO HS cholecalciferol (vitamin D3) 10 mcg (400 unit) capsule 400 units PO DAILY psyllium husk [Daily Fiber] 0.4 gram capsule 0.4 g PO DAILY diazepam 5 mg tablet 5 mg PO TIDP PRN (Reason: Anxiety) oxycodone-acetaminophen 5-325 mg tablet 1 tab PO ONCE bumetanide 1 mg tablet 1 mg PO DAILY Qty: 90 3RF metformin 500 mg tablet 500 mg PO BID rivaroxaban 20 mg tablet 20 mg PO DAILY Qty: 30 5RF carvedilol [Coreg] 3.125 mg tablet 3.125 mg PO BID Qty: 60 3RF Rx Instructions: must administer with a meal/food nitroglycerin [Nitrostat] 0.4 mg tablet, sublingual 0.4 mg SL Q5M PRN (Reason: chest pain) Qty: 20 0RF Rx Instructions: do not exceed 3 doses per episode clopidogrel 75 MG tablet 75 mg PO DAILY azithromycin [Zithromax] 250 mg tablet 250 mg PO UD DOSE PK Qty: 6 0RF Rx Instructions: Take two (2) tablets today, then one (1) tablet days #2 thru #5 benzonatate [benzonatate] 100 mg capsule 100 mg PO TIDP PRN (Reason: Cough) Qty: 30 0RF prednisone [prednisone] 20 mg tablet 20 mg PO BID 4 Days Qty: 8 0RF Referrals Follow up/Referrals: Cheko Heredia MD [Primary Care Provider] - See instructions Activity Restrictions/Add. Instructions Additional Instructions/Restrictions: Follow up with your [facility] Doctor if no improvement or any worsening of symptoms Straight to ER if any life threatening symptoms or loss of control of bowel or bladder Return if needed Clinical Impressions Clinical Impression: Low back pain Qualifiers: Chronicity: chronic Back pain laterality: right Sciatica presence: with sciatica Sciatica laterality: sciatica of right side Qualified Code(s): M54.41 - Lumbago with sciatica, right side Instructions Patient Instructions: DI for Chronic Pain -- Adult Discharge ED Provider: Rosana Hancock [facility] General Stated complaint: back pain Mode of Arrival: Ambulatory Source of Information: Patient Limitations: No Limitations Time Seen by Provider: 07/23/22 14:57 Description of Symptoms (Recalled from Triage Doc. by RN): PATIENT C/O LOWER BACK/HIP/LEG PAIN AFTER MOWING THE YARD. HE REPORTS A HISTORY OF BACK PAIN. HEENT Symptoms (Recalled from RN notes): No Resp Symptoms (Recalled from RN notes): No Skin Symptoms (Recalled from RN notes): No MS Symptoms (Recalled from RN notes): Yes Functional Status (Recalled from RN notes): WNL History of Present Illness Provider Complaint: Patient states that he has back problems States that he mowed the yard last week and made his sciatica act up States that he didnt fall or anything but it is in his right lower back and goes into his hip and upper leg States he did this last year and came to the ED and they give him a couple of shots that helped him Related Data Home Medications Medication Instructions Recorded Confirmed omega-3 acid ethyl esters 1 gram 1 g PO BID Supplement 10/14/17 05/01/22 capsule (Lovaza) cholecalciferol (vitamin D3) 10 400 units PO DAILY Supplement 05/09/21 05/01/22 mcg (400 unit) capsule diazepam 5 mg tablet 5 mg PO TIDP PRN Anxiety 05/09/21 05/01/22 psyllium husk 0.4 gram capsule 0.4 g PO DAILY constipation 05/09/21 05/01/22 (Daily Fiber) tamsulosin 0.4 mg capsule 0.4 mg PO HS prostate problems 05/09/21 05/01/22 clopidogrel 75 mg tabl
[2022-07-23 15:23] VITALS: BP 150/88; PULSE 72; RESP 16; TEMP 36.7; O2SAT 98
== END 2022-07-23 15:40 | disposition home or self-care (01) ==
LOC: ER 13:19 → UTC 13:19
PROVIDERS: Emergency Provider Nurse Practitioner; PCP Family Medicine
DX: M54.41 Lumbago with sciatica, right side (principal); R07.9 Chest pain, unspecified; R53.82 Chronic fatigue, unspecified; R94.31 Abnormal electrocardiogram [ECG] [EKG]; R05.9 Cough, unspecified; I25.10 Atherosclerotic heart disease of native coronary artery without angina pectoris; I65.23 Occlusion and stenosis of bilateral carotid arteries; G89.29 Other chronic pain; R40.0 Somnolence; F41.9 Anxiety disorder, unspecified; J44.9 Chronic obstructive pulmonary disease, unspecified; F17.210 Nicotine dependence, cigarettes, uncomplicated; Z79.01 Long term (current) use of anticoagulants; Z79.02 Long term (current) use of antithrombotics/antiplatelets; Z79.52 Long term (current) use of systemic steroids; Z79.899 Other long term (current) drug therapy; Z88.2 Allergy status to sulfonamides; W28.XXXA Contact with powered lawn mower, initial encounter
CPT/HCPCS: 96372; 99213; G0463

== ENCOUNTER → 2022-07-26 10:45 | Outpatient (CLI) | payer MEDICARE, BC, SELFPAY ==
--- NOTE | 2022-07-26 10:52 | CA_ITS ---
FINAL REPORT TECHNIQUE: Real-time imaging was performed of the extracranial carotid arteries in transverse and longitudinal planes with color duplex evaluation of blood flow velocity. Spectral analysis was performed. The cervicovertebral arteries were also examined. Stenosis evaluation based on elevated velocity criteria. CLINICAL HISTORY: [place], smoker, HLD, R ICA Known Occlusion FINDINGS: FINDINGS: RIGHT CAROTID: CCA PSV: 60 cm/sec ICA PSV: Occluded ECA PSV: 97 cm/sec ICA/CCA systolic flow velocity ratio: Not calculated due to ICA occlusion. Occlusion of the right internal carotid artery. LEFT CAROTID: CCA PSV: 91 cm/sec ICA PSV: 166 cm/sec ECA PSV: 135 cm/sec ICA/CCA systolic flow velocity ratio: 2.2 Moderate atherosclerotic plaque is noted. Narrowing is classified in the less than 50 % category. VERTEBRALS: Vertebral arteries are patent with antegrade flow and expected spectral waveforms. IMPRESSION: Occlusion of the right internal carotid artery. Less than 50% left carotid artery stenosis. Reviewed, Interpreted and Dictated by Min Castrejon MD Transcribed by Trina Siddiqui Authenticated and [facility]
--- NOTE | 2022-07-26 11:30 | MR_ITS ---
FINAL REPORT CLINICAL HISTORY: LOW BACK PAIN, HX SURGERY 2010, RIGHT HIP PAIN AND POSTERIOR LEG PAIN. FINDINGS: Multiplanar MR imaging of the lumbar spine was performed without contrast. On the sagittal T2-weighted images, there is abnormal decreased signal throughout the lumbar discs. The vertebrae are of normal height. There is grade 1 spondylolisthesis of L4 on L5. L1-2: There is no significant canal stenosis or neural foraminal narrowing. L2-3: There is a mild diffuse disc bulge. There is [id number] bilateral neural foraminal narrowing. L3-4: There is mild diffuse disc bulge. There is mild to moderate neural foraminal narrowing. L4-5: There is a moderate diffuse disc bulge extension weighted by spondylolisthesis. There is moderate bilateral neural foraminal narrowing. L5-S1: There is a mild disc bulge. There is mild bilateral neural foraminal narrowing. IMPRESSION: Spondylolisthesis at L4-5 with a diffuse disc bulge and bilateral neural foraminal narrowing. Diffuse disc bulges at L2-3 and L3-4 with bilateral neural foraminal narrowing. Reviewed, Interpreted and Dictated by Min Castrejon MD Transcribed by Trina Siddiqui Authenticated and [facility]
== END ==
PROVIDERS: PCP Family Medicine; Visit Provider Orthopaedic Surgery
DX: I65.23 Occlusion and stenosis of bilateral carotid arteries (principal); M54.50 Low back pain, unspecified
CPT/HCPCS: 72148; 76376; 93880

== ENCOUNTER 2022-10-21 13:36 | Emergency (ER) | payer MEDICARE, BC, SELFPAY ==
--- NOTE | 2022-10-21 13:38 | ECG_ITS ---
APPROVED REPORT Exam: Resting ECG HR:81 bpm ECG Measurements Heart Rate 81 AXES NC 170 P 76 QRSd 110 QRS 68 QT 370 T 70 QTc 408 Conclusion SINUS RHYTHM Normal ECG UNCONFIRMED REPORT Electronically signed by : Cheko Castaneda MD 10/21/2022 21:10:59
[2022-10-21 13:40] VITALS: BP 151/91; PULSE 87; RESP 16; TEMP 36.9; O2SAT 100; BMI 29.9
[2022-10-21 13:53] VITALS: PULSE 81
--- NOTE | 2022-10-21 13:55 | HMH.EDGENADL ---
Discharge Plan Disposition Patient Disposition: Home, Self-Care Condition: Good Prescriptions Prescriptions: New albuterol sulfate 90 mcg/actuation HFA aerosol inhaler 2 inh inhalation Q8H PRN (Reason: shortness of breath or wheezing) Qty: 8.5 0RF Rx Instructions: Please take 2 to 4 puffs every 4 hours for the first 48 hours then as needed following that doxycycline hyclate 100 mg capsule 100 mg PO BID 10 Days Qty: 20 0RF prednisone 50 mg tablet 50 mg PO DAILY 4 Days Qty: 4 0RF Rx Instructions: Please take beginning October 22 No Action omega-3 acid ethyl esters [Lovaza] 1 gram capsule 1 g PO BID pantoprazole 40 mg tablet,delayed release (DR/EC) 40 mg PO DAILY Label Comments: TAKE 1 TABLET BY MOUTH DAILY. docusate sodium 100 mg capsule 100 mg PO BID duloxetine 60 mg capsule,delayed release(DR/EC) 60 mg PO DAILY albuterol sulfate 90 mcg/actuation HFA aerosol inhaler 1 puff inhalation ONCE PRN fluticasone propionate 50 mcg/actuation spray,suspension 2 spray intranasal DAILY PRN Label Comments: USE 2 SPRAYS INTO THE NOSTRIL(S) DIRECTED BY PROVIDER DAILY. Stiolto Respimat 2.5-2.5 mcg/actuation mist 2 puff inhalation DAILY atorvastatin 10 mg tablet 10 mg PO DAILY Qty: 90 1RF clopidogrel 75 mg tablet 75 mg PO DAILY Qty: 90 1RF ranolazine [Ranexa] 500 mg tablet extended release 12 hr 500 mg PO BID Qty: 60 3RF rivaroxaban 20 mg tablet 20 mg PO DAILY Qty: 30 5RF carvedilol [Coreg] 3.125 mg tablet 3.125 mg PO BID Qty: 60 3RF Rx Instructions: must administer with a meal/food bumetanide 1 mg tablet 1 mg PO DAILY Qty: 90 3RF tamsulosin 0.4 mg capsule 0.4 mg PO HS cholecalciferol (vitamin D3) 10 mcg (400 unit) capsule 400 units PO DAILY psyllium husk [Daily Fiber] 0.4 gram capsule 0.4 g PO DAILY diazepam 5 mg tablet 5 mg PO TIDP PRN (Reason: Anxiety) oxycodone-acetaminophen 5-325 mg tablet 1 tab PO ONCE metformin 500 mg tablet 500 mg PO BID nitroglycerin [Nitrostat] 0.4 mg tablet, sublingual 0.4 mg SL Q5M PRN (Reason: chest pain) Qty: 20 0RF Rx Instructions: do not exceed 3 doses per episode prednisone [prednisone] 20 mg tablet 20 mg PO BID 4 Days Qty: 8 0RF Activity Restrictions/Add. Instructions Additional Instructions/Restrictions: ReferredYour symptoms today are most consistent with a COPD exacerbation. You were given a steroid and albuterol inhaler and antibiotic. Please follow with your primary care doctor within a few days. Troponin was mildly elevated and a second was needed to have a delta evaluation in order to rule out an acute myocardial infarction. Your symptoms are most consistent with infectious etiology and with shared decision making your preference was to go home before the second blood test. Therefore we are unable to definitively say there is no acute coronary syndrome. However I agree that this is unlikely. However please return with any worsening of your chest pain or any other concerns. Clinical Impressions Clinical Impression: Asthma exacerbation in COPD Discharge ED Provider: Chris Omalley Adult HPI General Chief complaint: Chest Pain Stated complaint: chest pain Time Seen by Provider: 10/21/22 13:55 Mode of Arrival: Ambulatory Source of Information: Patient Limitations: No Limitations Description of Symptoms (Recalled from ER Triage Doc. by RN): pt to ED with chest pain and SOB x 1 weeks. pt reports his pain as a heaviness or burning sensation when he coughs or lays down. pt has had a productive cough but denies any fevers or chills. History of Present Illness HPI narrative: Patient is a 76-year-old male with a history of COPD and atrial fibrillation who presents today with chest pain. He states that since he has been coughing and has had sinus drainage and that his chest feels raw. Lit
--- NOTE | 2022-10-21 13:56 | PC.NURSE ---
FERNANDA SUTTON at for pt tikial
[2022-10-21 14:01] VITALS: BP 126/83; PULSE 75; RESP 17; O2SAT 96
--- NOTE | 2022-10-21 14:01 | XR_ITS ---
FINAL REPORT CLINICAL HISTORY: dyspnea, wheezing COMPARISON: January 2022 FINDINGS: The heart size is at the upper limits of normal. The mediastinum is within normal limits. There is no acute cardiopulmonary process. There is no pleural effusion. There is no pneumothorax. The bony thorax is intact. IMPRESSION: No acute cardiopulmonary process. Reviewed, Interpreted and Dictated by Min Castrejon MD Transcribed by Du Gandara Authenticated and [facility]
[2022-10-21 14:05] LABS: Chloride 104 mmol/L (98-107); Sodium 140 mmol/L (136-145)
[2022-10-21 14:06] LABS: Potassium 4.4 mmoL/L (3.5-5.1)
[2022-10-21 14:08] LABS: Alanine Aminotransferase 22 U/L (12-78); Albumin Level 4.2 g/dl (3.5-5.0); Albumin/Globulin Ratio 1.5 (1.1-1.8); Alkaline Phosphatase 87 U/L (38-126); Anion Gap 9.4 mEq/L (5-15); Aspartate Amino Transferase 32 U/L (17-59); Bilirubin,Total 0.8 mg/dl (0.2-1.3); Blood Urea Nitrogen 13 mg/dl (9-20); Carbon Dioxide 31 mmol/L (22.0-30.0); Creatinine Clearance Estimated 80 mL/min (50-200); Estimated Glomerular Filt Rate 65 ml/min (>60); GFR (African American) 79 ML/MIN (>60); Globulin 2.8 g/dL (1.3-3.2)
[2022-10-21 14:09] LABS: Glucose 115 mg/dl (74-100)
[2022-10-21 14:10] LABS: Basophils # 0.1 K/mm3 (0-0.2); Basophils % 0.7 % (0.1-2.0); Eosinophils # 0.1 K/mm3 (0.0-0.4); Eosinophils % 1.4 % (0.1-12.0); Hematocrit 46.1 % (42.0-52.0); Lymphocytes # 1.8 K/mm3 (0.7-4.5); Lymphocytes % 23.9 % (10-50); Mean Corpuscular HGB Conc 32.6 g/dL (31.8-35.4); Mean Corpuscular Hemoglobin 31.6 pg (27.0-31.2); Mean Corpuscular Volume 97.1 fl (80-94); Mean Platelet Volume 7.5 fl (7.4-10.4); Monocytes # 0.5 K/mm3 (0.1-1.0); Monocytes % 6.8 % (1.7-9.3); Neutrophils % 67.2 % (37.0-80.0); Platelet Count 231 K/mm3 (142-424); Red Blood Count 4.75 M/mm3 (4.60-6.20); Red Cell Distribution Width 13.8 % (11.5-17.5); White Blood Count 7.4 K/mm3 (4.8-10.8)
[2022-10-21 14:20] LABS: Troponin I 0.08 ng/ml (0.00-0.034)
--- NOTE | 2022-10-21 14:36 | PC.NURSE ---
pt reports relief of his pain and difficulty breathing at this time
[2022-10-21 14:49] LABS: NT Pro Brain Natriuretic Pep. 217 pg/mL (0-450)
--- NOTE | 2022-10-21 14:50 | PC.NURSE ---
contacted rad to check on status rad results, states images are locked which means it should be being read
--- NOTE | 2022-10-21 15:02 | PC.NURSE ---
MD stated pt said he feels better and is ready to go home. MD stated no need for second trop. pt good for D/C
[2022-10-21 15:35] VITALS: BP 141/81; PULSE 78; RESP 17; TEMP 37; O2SAT 94
== END 2022-10-21 15:37 | disposition home or self-care (01) ==
PROVIDERS: Emergency Provider Student in an Organized Health Care Education/Training Program
DX: J45.901 Unspecified asthma with (acute) exacerbation (principal); J44.1 Chronic obstructive pulmonary disease with (acute) exacerbation; R07.9 Chest pain, unspecified; I48.91 Unspecified atrial fibrillation; I65.23 Occlusion and stenosis of bilateral carotid arteries; I10 Essential (primary) hypertension; E78.5 Hyperlipidemia, unspecified
CPT/HCPCS: 71045; 80053; 83880; 84484; 85025; 93005; 99285

== ENCOUNTER → 2023-03-06 11:41 | Outpatient (CLI) | payer MEDICARE, BC, SELFPAY ==
--- NOTE | 2023-03-06 11:41 | NM_ITS ---
APPROVED REPORT Exam: Nuclear Stress Test Indication: CHEST PAIN..SOA..PALPITATIONS Patient Location: Outpatient Stress Tech: Ester BABIN Tech:MYESHA Wilcox RT(R)(N) Ht: 5 ft 11 in Wt: 211 lbs HR: 66 bpm BP: 137/87 mmHg BSA: 2.16 m2 Rhythm: NSR TID: 1.06 BMI: 29.4 History: CHEST PAIN..SOA..PALPITATIONS Procedure: Patient received 0.4 mg of intravenous Lexiscan, resting heart rate 66 bpm, resting blood pressure 137/87 mmHg, with Lexiscan maximum heart rate achieved was 84 bpm which is 85 % of the maximum predicted heart rate and blood pressure was 151/85 mmHg. With Lexiscan, patient denied any complaint of chest pain. Cardiac Stress and Resting SPECT Images: Cardiac Stress and Resting SPECT images were obtained using technetium 99m Myoview 32.2 mCi stress and 10.50 mCi at rest. Resting and stress imaging in both supine and prone positions demonstrate a large sized, moderate, fixed perfusion defect in the inferior wall from the base and extending distally, as well as in the inferoapical region. Gated imaging demonstrates mild reduction in global LV systolic function. There is moderate to severe hypokinesis in the inferior and inferoapical LV wall. LVEF is calculated at 42%. Conclusion: Large sized, moderate, fixed perfusion defect in the inferior wall from the base and extending distally, as well as in the inferoapical region. No evidence of reversible ischemia. Gated imaging demonstrates mild reduction in global LV systolic function. There is moderate to severe hypokinesis in the inferior and inferoapical LV wall. LVEF is calculated at 42%. Electronically signed by : Pratibha Sterling, 03/09/2023 23:49:25
--- NOTE | 2023-03-06 14:34 | CA_ITS ---
APPROVED REPORT Exam: Pharmacologic Technologist: Ester Nuñez, Ht: 5 ft 11 in Wt: 211 lbs BSA: 2.16 m2 HR: 67 bpm BP: 137/87 mmHg Rhythm: NSR Indications: CP Medical History Medications: Metformin,,,,, Nitrostat,,,,, Diazepam,,,,, Pantoprazole,,,,, Atorvastatin,,,,, Flonase,,,,, PERCOCET,,,,, Coreg,,,,, Albuterol,,,,, Vit D3,,,,, CloPIdogrel,,,,, Cymbalta,,,,, Stress Test Details Test: LEXISCAN Reason for pharmacologic stress test: physical limitation. HR Resting HR: 66 bpm Max Heart Rate (APMHR): 144 bpm Max HR Achieved: 84 bpm Target HR (85% APMHR): 122 bpm % of APMHR: 58 Recovery HR: 68 bpm BP Resting BP: 137.0/87.0 mmHg Max BP: 151.0/85.0 mmHg Recovery BP: 132.0/85.0 mmHg ECG Resting ECG: NSR, mild J-point elevation in inferior leads, Q waves in inferior leads, PVCs Stress ECG: No change Arrhythmia: PVCs Recovery ECG: No change Recovery Arrhythmia: None Clinical Exercise duration: 04:06 min Highest Stage Achieved: Exercise capacity: 1.0 METs Stress ECG Conclusion Symptoms: Mild SOA, abdominal & head discomfort. No CP. Arrhythmias/Ectopy: Occasional PVC. ST-T Changes: No significant changes. Conclusion: Unremarkable Lexiscan stress. Myoview images reported separately. Test Summary REST . . . . . . . Resting REST 06:32 . . 66 . 137/ 87 . . Stage 1 01:00 . . 72 . . . . Stage 2 01:00 . . 83 . . . . Stage 3 01:00 . . 76 . 151/ 85 . . Stage 4 01:00 . . 72 . 150/ 82 . . Stage 4 01:06 . . 73 . 144/ 82 . Stop exercise at 04:06 RECOVERY 01:00 . . 72 . . . . RECOVERY 02:00 . . 71 . 131/ 82 . . RECOVERY 03:00 . . 68 . 132/ 85 . . RECOVERY 03:18 . . 69 . 132/ 85 . . Electronically signed by : Pratibha Sterling, 03/09/2023 23:44:54
== END ==
PROVIDERS: PCP Family Medicine; Visit Provider Nurse Practitioner Family
DX: E78.2 Mixed hyperlipidemia (principal); I25.10 Atherosclerotic heart disease of native coronary artery without angina pectoris; I25.5 Ischemic cardiomyopathy; I48.11 Longstanding persistent atrial fibrillation; I50.20 Unspecified systolic (congestive) heart failure; R06.02 Shortness of breath; R07.89 Other chest pain; I11.0 Hypertensive heart disease with heart failure
CPT/HCPCS: 78452; 93017; 93306; A9502; J2785

== ENCOUNTER 2023-05-28 14:53 | Emergency (ER) | payer MEDICARE, BC, SELFPAY ==
[2023-05-28] VITALS (12 sets, daily range): BP systolic 96–166; BP diastolic 65–113; PULSE 59–117; RESP 12–20; TEMP 36.7–36.9; O2SAT 94–98; BMI 29.9
--- NOTE | 2023-05-28 | ECG_ITS ---
APPROVED REPORT Exam: Resting ECG HR:116 bpm ECG Measurements Heart Rate 116 AXES QRSd 113 QRS 66 QT 334 T 68 QTc 403 Conclusion ATRIAL FLUTTER/TACHYCARDIA WITH RAPID VENTRICULAR RESPONSE POSSIBLE INFERIOR MYOCARDIAL INFARCTION , OF INDETERMINATE AGE [30 ms Q WAVE IN II/aVF] ABNORMAL ECG UNCONFIRMED REPORT Electronically signed by : Cheko Castaneda MD 05/30/2023 16:07:22
--- NOTE | 2023-05-28 15:04 | XR_ITS ---
FINAL REPORT CLINICAL HISTORY: chest pain, shortness of breath COMPARISON: None FINDINGS: A single portable view of the chest was obtained. Cardiomegaly is noted. Pulmonary vascularity is within normal limits. The mediastinum is within normal limits. Mild bibasilar opacities are favored to represent atelectasis. The bony thorax is intact. IMPRESSION: Mild bibasilar opacities favor atelectasis. Reviewed, Interpreted and Dictated by Ashish Harvey III, MD Transcribed by Avani Nielson Authenticated and [facility]
[2023-05-28 15:16] LABS: Chloride 105 mmol/L (98-107); Potassium 4.4 mmoL/L (3.5-5.1); Sodium 139 mmol/L (136-145)
[2023-05-28 15:19] LABS: Alanine Aminotransferase 20 U/L (12-78); Albumin/Globulin Ratio 1.5 (1.1-1.8); Alkaline Phosphatase 85 U/L (38-126); Anion Gap 9.4 mEq/L (5-15); Aspartate Amino Transferase 24 U/L (17-59); Bilirubin,Total 0.9 mg/dl (0.2-1.3); Blood Urea Nitrogen 22 mg/dl (9-20); Calcium 9.3 mg/dl (8.4-10.2); Carbon Dioxide 29 mmol/L (22.0-30.0); Creatinine Clearance Estimated 87 mL/min (50-200); Estimated Glomerular Filt Rate 73 ml/min (>60); GFR (African American) 88 ML/MIN (>60); Globulin 2.7 g/dL (1.3-3.2); Glucose 126 mg/dl (74-100); Magnesium 1.9 mg/dl (1.6-2.3); Total Protein,Serum 6.7 g/dl (6.3-8.2)
--- NOTE | 2023-05-28 15:19 | HMH.EDGENADL ---
Discharge Plan Disposition Patient Disposition: Home, Self-Care Condition: Good Prescriptions Prescriptions: New diltiazem HCl [Cardizem CD] 120 mg capsule,extended release 24hr 120 mg PO DAILY Qty: 30 0RF No Action omega-3 acid ethyl esters [Lovaza] 1 gram capsule 1 g PO BID pantoprazole 40 mg tablet,delayed release (DR/EC) 40 mg PO DAILY Patient Comments: TAKE 1 TABLET BY MOUTH DAILY. docusate sodium 100 mg capsule 100 mg PO BID duloxetine 60 mg capsule,delayed release(DR/EC) 60 mg PO DAILY albuterol sulfate 90 mcg/actuation HFA aerosol inhaler 1 puff inhalation ONCE PRN Stiolto Respimat 2.5-2.5 mcg/actuation mist 2 puff inhalation DAILY clopidogrel 75 mg tablet 75 mg PO DAILY Qty: 90 1RF tamsulosin 0.4 mg capsule 0.4 mg PO HS cholecalciferol (vitamin D3) 10 mcg (400 unit) capsule 400 units PO DAILY psyllium husk [Daily Fiber] 0.4 gram capsule 0.4 g PO DAILY diazepam 5 mg tablet 5 mg PO TIDP PRN (Reason: Anxiety) oxycodone-acetaminophen 5-325 mg tablet 1 tab PO ONCE nitroglycerin [Nitrostat] 0.4 mg tablet, sublingual 0.4 mg SL Q5M PRN (Reason: chest pain) Qty: 20 0RF Rx Instructions: do not exceed 3 doses per episode rivaroxaban 20 mg tablet 20 mg PO DAILY Qty: 90 3RF albuterol sulfate 90 mcg/actuation HFA aerosol inhaler 2 inh inhalation Q8H PRN (Reason: shortness of breath or wheezing) Qty: 8.5 0RF Rx Instructions: Please take 2 to 4 puffs every 4 hours for the first 48 hours then as needed following that metoprolol succinate 50 mg tablet extended release 24 hr 50 mg PO DAILY bupropion HCl 100 mg tablet 100 mg PO DAILY atorvastatin 10 mg tablet 10 mg PO DAILY ranolazine 1,000 mg tablet extended release 12 hr 1,000 mg PO BID Referrals Follow up/Referrals: Cheko Heredia MD [Primary Care Provider] - See instructions Activity Restrictions/Add. Instructions Additional Instructions/Restrictions: You were evaluated in the emergency department today. Please follow-up with Dr. Hull in the morning. He would like to see you in clinic at 10 AM. We are also providing you with a prescription for diltiazem. This is a heart medication to slow your heart rate. You have already had your dose for today. Take it daily as prescribed. Return to the emergency department for any new or worsening symptoms, such as worsening palpitations, chest pain, shortness of breath, or other concerns. Continue taking your other medications at home as prescribed. Clinical Impressions Clinical Impression: Atrial flutter with rapid ventricular response Instructions Patient Instructions: DI for Atrial Flutter Discharge ED Provider: Alayna Vaz General Adult HPI General Chief complaint: Chest Pain Stated complaint: chest pain Time Seen by Provider: 05/28/23 14:58 Mode of Arrival: Ambulatory Source of Information: Patient Limitations: No Limitations Description of Symptoms (Recalled from ER Triage Doc. by RN): Pt reports chest pain lastnight, states relieved with 2 nitro tablets. Pt reports chest tightness today upon waking up and feels more SOA than normal. Pt reports hx of Afib, states 2 weeks ago his HR was elevated in the 160s. Pt states takes xarelto and plavix daily. Pt reports recent stress test, was told it was okay. Hx of cardiac ablation by Dr. Dai. History of Present Illness HPI narrative: This patient is a 77-year-old male with a history of atrial fibrillation, systolic CHF, hypertension, hyperlipidemia, CAD, and COPD presented to the emergency department for evaluation with concern for palpitations. Patient reports that 2 weeks ago, his heart rate was up in the 120-160 range. He knew that he was in A-fib, because he can feel palpitations. He states that he has stayed in atrial fibrillation with a rate in the 120s, and has continued to have palpitations sin
[2023-05-28 15:28] LABS: Basophils % 0.4 % (0.1-2.0); Eosinophils # 0.1 K/mm3 (0.0-0.4); Hematocrit 46.5 % (42.0-52.0); Hemoglobin 14.7 g/dL (14.1-18.0); Lymphocytes % 23.1 % (10-50); Mean Corpuscular HGB Conc 31.6 g/dL (31.8-35.4); Mean Corpuscular Hemoglobin 31.3 pg (27.0-31.2); Mean Corpuscular Volume 98.9 fl (80-94); Mean Platelet Volume 7.6 fl (7.4-10.4); Monocytes # 0.7 K/mm3 (0.1-1.0); Monocytes % 7.6 % (1.7-9.3); Neutrophils # 5.9 K/mm3 (1.8-7.8); Neutrophils % 67.9 % (37.0-80.0); Platelet Count 237 K/mm3 (142-424); Red Cell Distribution Width 13.6 % (11.5-17.5); White Blood Count 8.7 K/mm3 (4.8-10.8)
[2023-05-28 15:29] LABS: NT Pro Brain Natriuretic Pep. 809 pg/mL (0-450)
--- NOTE | 2023-05-28 15:30 | PC.NURSE ---
Repeat EKG performed per Dr. Vaz request.
--- NOTE | 2023-05-28 15:30 | ECG_ITS ---
APPROVED REPORT Exam: Resting ECG HR:90 bpm ECG Measurements Heart Rate 90 AXES QRSd 106 QRS 56 QT 360 T 66 QTc 408 Conclusion ATRIAL FLUTTER/TACHYCARDIA ABNORMAL RHYTHM ECG UNCONFIRMED REPORT Electronically signed by : Cheko Castaneda MD 05/30/2023 16:07:05
[2023-05-28 15:34] LABS: Activated Partial Thrombo Time 32.6 seconds (22.8-30.6); INR 1.16 (0.9-1.1); Prothrombin Time 12.4 seconds (10.1-12.5)
[2023-05-28 15:45] LABS: Troponin I < 0.01 ng/ml (0.00-0.034)
[2023-05-28 15:48] LABS: D-Dimer 0.82 ug/mL (0.0-0.5)
--- NOTE | 2023-05-28 15:54 | CT_ITS ---
FINAL REPORT CLINICAL HISTORY: elevated dimer, atrial tachycardia COMPARISON: None FINDINGS: Thin section axial CT images of the chest were obtained with contrast. This study was performed with techniques to keep radiation doses as low as reasonably achievable (ALARA). Individualized dose reduction techniques using automated exposure control or adjustment of mA and/or kV according to the patient's size were employed. There is no evidence of pulmonary embolism. There is no evidence of thoracic aortic aneurysm or dissection. There is no evidence of mediastinal or hilar mass or adenopathy. There is no evidence of pulmonary mass or nodule. No localized inflammatory process is seen within the lungs. There are mild changes of emphysema. There is mild basilar atelectasis present. Limited images of the upper abdomen reveal a probable small cyst in the left hepatic lobe. IMPRESSION: No evidence of pulmonary embolism. Reviewed, Interpreted and Dictated by Ashish Harvey III, MD Transcribed by Poly Love Authenticated and [facility]
--- NOTE | 2023-05-28 15:55 | ECG_ITS ---
APPROVED REPORT Exam: Resting ECG HR:65 bpm ECG Measurements Heart Rate 65 AXES QRSd 107 QRS 59 QT 421 T 71 QTc 432 Conclusion ATRIAL FLUTTER/TACHYCARDIA WITH ABERRANT CONDUCTION OR VENTRICULAR PREMATURE COMPLEXES ABNORMAL RHYTHM ECG UNCONFIRMED REPORT Electronically signed by : Cheko Castaneda MD 05/30/2023 16:06:56
--- NOTE | 2023-05-28 16:11 | PC.NURSE ---
Pt to CT via wheelchair
--- NOTE | 2023-05-28 16:13 | PC.NURSE ---
[employer] Planning Operator paging Dr. Hull for Dr. Vaz
--- NOTE | 2023-05-28 16:16 | PC.NURSE ---
Dr. Vaz speaking with Dr. Hull
--- NOTE | 2023-05-28 17:05 | PC.NURSE ---
lab is coming down to collect 2 hour troponin.
--- NOTE | 2023-05-28 17:07 | PC.NURSE ---
contacted lab to notify them Dr. Vaz wants a 2 hour troponin on pt. Request for lab to come draw blood
[2023-05-28 17:54] LABS: Troponin I < 0.01 ng/ml (0.00-0.034)
--- NOTE | 2023-05-28 18:25 | PC.NURSE ---
pt's IV partially removed when it was caught up in his IV line. PIV was removed and pressure dressing applied. notified.
== END 2023-05-28 18:48 | disposition home or self-care (01) ==
PROVIDERS: Emergency Provider Emergency Medicine; PCP Family Medicine
DX: I48.92 Unspecified atrial flutter (principal); I11.0 Hypertensive heart disease with heart failure; I50.20 Unspecified systolic (congestive) heart failure; I48.91 Unspecified atrial fibrillation; E78.5 Hyperlipidemia, unspecified; I25.119 Atherosclerotic heart disease of native coronary artery with unspecified angina pectoris; J44.9 Chronic obstructive pulmonary disease, unspecified; I65.23 Occlusion and stenosis of bilateral carotid arteries; F17.210 Nicotine dependence, cigarettes, uncomplicated; I47.1 Supraventricular tachycardia
CPT/HCPCS: 36415; 71045; 71275; 80053; 83735; 83880; 84484; 85025; 85378; 85610; 85730; 93005; 96374; 96375; 96376; 99291; Q9967

== ENCOUNTER 2023-05-29 14:00 | Day surgery (SDC) | payer MEDICARE, BC, SELFPAY ==
[2023-05-29] VITALS (8 sets, daily range): BP systolic 97–148; BP diastolic 65–98; PULSE 57–107; RESP 18; TEMP 36.6; O2SAT 92–97; BMI 30.2
--- NOTE | 2023-05-29 14:20 | ECG_ITS ---
APPROVED REPORT Exam: Resting ECG HR:107 bpm ECG Measurements Heart Rate 107 AXES RI 203 P 94 QRSd 108 QRS 59 QT 347 T 45 QTc 410 Conclusion SINUS TACHYCARDIA ABNORMAL RHYTHM ECG WARNING: DATA QUALITY MAY AFFECT INTERPRETATION UNCONFIRMED REPORT Electronically signed by : Cheko Castaneda MD 05/30/2023 16:02:19
--- NOTE | 2023-05-29 14:32 | CA_ITS ---
APPROVED REPORT EXAM: Comprehensive 2D, Doppler, and color-flow Echocardiogram Preforms Laminator: Sabrina Pimentel RVT Ht: 5 ft 11 in Wt: 217lbs BSA: 2.18 BP: 99/62 mmHg Indications: AFLUTTER,CAD,HX ABLATION 2020,CP,SOA,HTN,HLD Procedure After obtaining informed consent, patient underwent transesophageal echo in the [facility]. Type of Sedation : MAC Sedation was administered by Balbir Sutton C.R.N.A. Sedation start time: 15:50 Case end Time: 16:15 Sedation was achieved intravenously with: Propofol (400) Transesophageal probe was inserted and advanced into esophagus without difficulty by Dr. Jay Sterling. The JORJE was performed without complications. Synchronized Cardioversion acheived with 150 Joules after 1 attempt(s). Rhythm following Synchronized Cardioversion: Normal Sinus Rhythm Throughout the procedure, the blood pressure, pulse oximetry, cardiac rhythm, and rate were monitored. The patient tolerated the procedure without adverse effects. Recovery from conscious sedation was uneventful and vital signs were stable. Left Ventricle The left ventricle is normal size. Left ventricular systolic function is mild to moderately decreased. There is mild increase in LV wall thickness. There is mild to moderate global hypokinesis. LVEF is 40% Right Ventricle The right ventricle is normal size. Right ventricle is moderately hypokinetic. Atria The left atrium size is normal. There is no mass suspected in the left atrium. No thrombus is visualized in the left atrium or appendage. The right atrium size is normal. The interatrial septum is intact with no evidence for an atrial septal defect. Lipomatous hypertrophy of the interatrial septum is present. Aortic Valve The aortic valve is trileaflet. The aortic valve opens well. There is no aortic valvular stenosis. No aortic regurgitation is present. Mitral Valve The mitral valve is normal in structure. No evidence of mitral valve stenosis. Mild mitral regurgitation. Tricuspid Valve The tricuspid valve leaflets are thin and pliable. Mild tricuspid regurgitation. RVSP is normal. Pulmonic Valve The pulmonary valve is normal in structure. Trace pulmonic regurgitation. Other Information Study Quality: Fair Conclusion Mild to moderate reduction in LV systolic function (LVEF 40%) No evidence of LA or LISHA mass or thrombus Lipomatous hypertrophy of the IAS Mild MR Mild TR Of note, the patient's rhythm was 1:1 atril flutter (DB=446 with no fluctuations) at the beginning of the case. He was given 1 dose of adenosing 6mg then followed by adenosine 12mg to visualize the flutter waves prior to initiation of the JORJE/DCCV. Once he was determined to have no LA or LISHA thrombus, he underwent DCCV with 150J, after which he converted successfully to NSR (HR 60s). Electronically signed by : Pratibha Sterling, 05/29/2023 20:24:06
--- NOTE | 2023-05-29 15:27 | ECG_ITS ---
APPROVED REPORT Exam: Resting ECG HR:109 bpm ECG Measurements Heart Rate 109 AXES UT 199 P 106 QRSd 122 QRS 64 QT 342 T 50 QTc 406 Conclusion SINUS TACHYCARDIA with first degree AV block ABNORMAL ECG UNCONFIRMED REPORT Electronically signed by : Cheko Castaneda MD 05/30/2023 16:01:03
--- NOTE | 2023-05-29 15:29 | ECG_ITS ---
APPROVED REPORT Exam: Resting ECG HR:108 bpm ECG Measurements Heart Rate 108 AXES IA 223 P 96 QRSd 105 QRS 60 QT 338 T 48 QTc 401 Conclusion SINUS TACHYCARDIA WITH FIRST DEGREE AV BLOCK WITH OCCASIONAL VENTRICULAR PREMATURE COMPLEXES MINIMAL ST DEPRESSION [0.025+ mV ST DEPRESSION] ABNORMAL ECG UNCONFIRMED REPORT Electronically signed by : Cheko Castaneda MD 05/30/2023 16:01:27
--- NOTE | 2023-05-29 15:47 | ECG_ITS ---
APPROVED REPORT Exam: Resting ECG HR:108 bpm ECG Measurements Heart Rate 108 AXES QRSd 112 QRS 65 QT 344 T 56 QTc 407 Conclusion ATRIAL FLUTTER/TACHYCARDIA WITH RAPID VENTRICULAR RESPONSE POSSIBLE INFERIOR MYOCARDIAL INFARCTION , OF INDETERMINATE AGE [30 ms Q WAVE IN II/aVF] ABNORMAL ECG UNCONFIRMED REPORT Electronically signed by : Cheko Castaneda MD 05/30/2023 15:59:29
--- NOTE | 2023-05-29 15:50 | ECG_ITS ---
APPROVED REPORT Exam: Resting ECG HR:108 bpm ECG Measurements Heart Rate 108 AXES QRSd 120 QRS 58 QT 334 T 53 QTc 397 Conclusion First degree AV block Nonspecific IV conduction delay POSSIBLE INFERIOR MYOCARDIAL INFARCTION , PROBABLY OLD [30 ms Q WAVE IN II/aVF] ABNORMAL RHYTHM ECG UNCONFIRMED REPORT Electronically signed by : Cheko Castaneda MD 05/30/2023 16:00:17
--- NOTE | 2023-05-29 16:11 | SUR.OPER ---
1540- attempted to slow rate down to differentiate rhythm prior to cardioversion. on 12 lead ekg, dr. mckeon unsure if patient is in a flutter or sinus tach. verbal order for patient to be given adenosine 6mg iv push x1 at 1545. additional dose of 12 mg adenosine iv push per dr. mckeon given at 1549. a flutter on ekg, proceeded with amy with cardioversion. 1612- 150j shock delivered at this time. patient in normal sinus. ekg to confirm at bedside.
--- NOTE | 2023-05-29 16:21 | ECG_ITS ---
APPROVED REPORT Exam: Resting ECG HR:55 bpm ECG Measurements Heart Rate 55 AXES CA 201 P 72 QRSd 120 QRS 62 QT 471 T 70 QTc 460 Conclusion SINUS BRADYCARDIA WITH OCCASIONAL SUPRAVENTRICULAR PREMATURE COMPLEXES PROBABLE INFERIOR MYOCARDIAL INFARCTION , PROBABLY OLD [35 ms Q WAVE IN II/aVF] ABNORMAL ECG INTERPRETATION BASED ON A DEFAULT AGE OF 40 YEARS UNCONFIRMED REPORT Electronically signed by : Cheko Castaneda MD 05/30/2023 15:59:17
--- NOTE | 2023-05-29 16:47 | P.PNANES_ITS ---
[facility] Disclaimer: The information contained in this section may have been updated after the patient was seen, as this information can be updated by other users. Medical History Abnormal electrocardiography Atrial fibrillation Atrial fibrillation with RVR Atypical angina Bilateral carotid artery stenosis CAD (coronary artery disease) COPD (chronic obstructive pulmonary disease) Daytime somnolence Dyspnea Fatigue HLD (hyperlipidemia) HTN (hypertension) Tobacco dependence syndrome Surgical History (Updated 05/29/23 @ 14:23 by Filippo Valverde RN) History of cardiac radiofrequency ablation Family History (Updated 05/29/23 @ 14:24 by Filippo Valverde RN) Other Family history of cancer Family history of diabetes mellitus Social History (Updated 05/29/23 @ 14:25 by Filippo Valverde RN) Smoking Status: Current every day smoker tobacco type: cigarettes packs per day: 1 alcohol intake: never substance use type: denies use current occupational status: unemployed and retired Travel in the last 8 weeks: Inside the [place] household members: none housing: house current occupational exposures/hazards: No [facility] Anesthesia Checklist Patient Identification Patient Identification: Arm Band and Family Structural Data Admitted From: Home Planned Operative Procedure/s: JORJE and Cardioversion Consent for Planned Operative Procedure(s) Verified: Yes Verified Documents: Surgical Consent and History and Physical NPO Status Verified Time NPO: 00:00 Additional verifications Patient : No Anesthesia Reactions: No Blood Transfusion Reaction: No Cephalosporin Allergy: No Previous Colonoscopy: Yes Airway Assessment Mallampati Score:: Class III C-Spine Mobility Assessed: Yes TMJ Mobility Assessed: Yes Dentition: Edentulous Neurological Assessment Level of Consciousness: Awake, Alert, Appropriate and Follows Commands Hx Seizures: No Numbness or tingling in extremities: No Anesthesia Plan Anesthesia Risk discussed: Yes ASA Class: III Anesthesia Type: MAC Preoperative Comments Pre-Operative Comments: Chronic Atrial fib/flutter
--- NOTE | 2023-05-29 18:21 | SUR.PHASEII ---
pt has remained in NSR T/O post procedure monitoring. VSS. Ate dinner and has been tolerating fluids without difficulty. No C/O pain or SOA. Discharged in stable condtion with sister at his side.
== END 2023-05-29 18:23 | disposition home or self-care (01) ==
PROVIDERS: PCP Family Medicine; Visit Provider Internal Medicine
DX: E78.5 Hyperlipidemia, unspecified (principal); I10 Essential (primary) hypertension; I25.118 Atherosclerotic heart disease of native coronary artery with other forms of angina pectoris; I48.11 Longstanding persistent atrial fibrillation; R06.02 Shortness of breath; Z79.899 Other long term (current) drug therapy; Z79.01 Long term (current) use of anticoagulants
CPT/HCPCS: 92960; 93005; 93312

== ENCOUNTER → 2023-07-15 15:21 | Outpatient (CLI) | payer MEDICARE, BC, SELFPAY ==
--- NOTE | 2023-07-15 15:21 | CA_ITS ---
APPROVED REPORT EXAM: Comprehensive 2D, Doppler, and color-flow Echocardiogram Media Production Operator: Kailee Murdock CRT Ht: 5 ft 11 in Wt: 218lbs BSA: 2.19 BP: 97/64 mmHg Indications: Abnormal ECG R94.31, Hypertension I10, Atrial Fibrillation I48.0, CAD I25.10 EF CHECK M-Mode Dimensions RVDd 2.68 cm (0.9-2.6) LVDd 4.96 cm (3.5-5.7) LVDs 3.64 cm (3.5-5.7) IVSd 1.84 cm (0.6-1.1) PWd 0.88 cm (0.6-1.1) EF (Teich) 51.90% FS 26.60% EDV (Teich) 116.10 mL ESV (Teich) 55.90 mL Other Information Study Quality: Fair Conclusion This is a limited study to evaluate for LVEF. Limited windows were obtained. The left ventricle is normal in size. There is increased LV wall thickness. The LV systolic function is normal. There are no regional wall motion abnormalities. LVEF is 55%. The right ventricle is normal in size and function. Electronically signed by : Pratibha Sterling MD 07/15/2023 22:22:18
== END ==
PROVIDERS: PCP Family Medicine; Visit Provider Internal Medicine
DX: I25.10 Atherosclerotic heart disease of native coronary artery without angina pectoris (principal); I11.0 Hypertensive heart disease with heart failure; I50.20 Unspecified systolic (congestive) heart failure; I42.9 Cardiomyopathy, unspecified; I48.91 Unspecified atrial fibrillation; R94.31 Abnormal electrocardiogram [ECG] [EKG]; E78.5 Hyperlipidemia, unspecified; Z72.0 Tobacco use
CPT/HCPCS: 93308

== ENCOUNTER 2023-07-28 13:50 | Emergency (ER) | payer MEDICARE, BC, SELFPAY ==
[2023-07-28 14:00] VITALS: BP 105/48; PULSE 78; RESP 18; TEMP 36.6; O2SAT 95; BMI 29.9
--- NOTE | 2023-07-28 14:19 | EXP.UTC ---
Discharge Plan Disposition Patient Disposition: Home, Self-Care Condition: Good Prescriptions Prescriptions: New cyclobenzaprine 10 mg Tablet 10 mg PO BID PRN (Reason: Muscle Spasm) Qty: 20 0RF methylprednisolone 4 mg Tablets,Dose Pack 4 mg PO DIRECTED Qty: 21 0RF No Action omega-3 acid ethyl esters [Lovaza] 1 gram capsule 1 g PO BID pantoprazole 40 mg tablet,delayed release (DR/EC) 40 mg PO DAILY Patient Comments: TAKE 1 TABLET BY MOUTH DAILY. docusate sodium 100 mg capsule 100 mg PO BID duloxetine 60 mg capsule,delayed release(DR/EC) 60 mg PO DAILY albuterol sulfate 90 mcg/actuation HFA aerosol inhaler 1 puff inhalation ONCE PRN (Reason: Asthma) Stiolto Respimat 2.5-2.5 mcg/actuation mist 2 puff inhalation DAILY clopidogrel 75 mg tablet 75 mg PO DAILY Qty: 90 1RF tamsulosin 0.4 mg capsule 0.4 mg PO HS cholecalciferol (vitamin D3) 10 mcg (400 unit) capsule 400 units PO DAILY psyllium husk [Daily Fiber] 0.4 gram capsule 0.4 g PO DAILY diazepam 5 mg tablet 5 mg PO TIDP PRN (Reason: Anxiety) oxycodone-acetaminophen 5-325 mg tablet 1 tab PO ONCE nitroglycerin [Nitrostat] 0.4 mg tablet, sublingual 0.4 mg SL Q5M PRN (Reason: chest pain) Qty: 20 0RF Rx Instructions: do not exceed 3 doses per episode rivaroxaban 20 mg tablet 20 mg PO DAILY Qty: 90 3RF albuterol sulfate 90 mcg/actuation HFA aerosol inhaler 2 inh inhalation Q8H PRN (Reason: shortness of breath or wheezing) Qty: 8.5 0RF Rx Instructions: Please take 2 to 4 puffs every 4 hours for the first 48 hours then as needed following that metoprolol succinate 50 mg tablet extended release 24 hr 50 mg PO DAILY bupropion HCl 100 mg tablet 100 mg PO DAILY atorvastatin 10 mg tablet 10 mg PO DAILY ranolazine 1,000 mg tablet extended release 12 hr 1,000 mg PO BID diltiazem HCl [Cardizem CD] 120 mg capsule,extended release 24hr 120 mg PO DAILY Referrals Follow up/Referrals: Cheko Heredia MD [Primary Care Provider] - See instructions Activity Restrictions/Add. Instructions Additional Instructions/Restrictions: Go home and rest. It would be best if you rested tomorrow too. No heavy lifting. No twisting. Take the oral medications as directed. The muscle relaxer (cyclobenzaprine--Flexeril) will make you drowsy, so don't drive or operate heavy machinery after taking it. Don't start the oral steroids (medrol dose pack) until tomorrow, since you had the shots in here today. Follow up with your regular doctor. GO TO THE ER FOR ANY WORSENING SYMPTOMS OR CONCERN, ESPECIALLY BOWEL OR BLADDER ISSUES, SADDLE AREA NUMBNESS, FEVER, ETC Clinical Impressions Clinical Impression: Low back pain Instructions Patient Instructions: DI for Low Back Pain, Ketorolac Injection, Dexamethasone Injection Discharge ED Provider: Karson Gasca [facility] General Stated complaint: back pain, no accident Mode of Arrival: Ambulatory Source of Information: Patient Limitations: No Limitations Time Seen by Provider: 07/28/23 14:19 HEENT Symptoms (Recalled from RN notes): No Resp Symptoms (Recalled from RN notes): No Skin Symptoms (Recalled from RN notes): No MS Symptoms (Recalled from RN notes): Yes Functional Status (Recalled from RN notes): n/a History of Present Illness Provider Complaint: Pt states having lower back pain for about a week. He denies any injury. He has a long history of issues with back pain and sciatica. Related Data Home Medications Medication Instructions Recorded Confirmed omega-3 acid ethyl esters 1 gram 1 g PO BID Supplement 10/14/17 07/28/23 capsule (Lovaza) cholecalciferol (vitamin D3) 10 400 units PO DAILY Supplement 05/09/21 07/28/23 mcg (400 unit) capsule diazepam 5 mg tablet 5 mg PO TIDP PRN Anxiety 05/09/21 07/28/23 psyllium husk 0.4 gram capsule 0.4 g PO DAILY constipat
[2023-07-28 14:37] VITALS: BP 105/48; PULSE 78; RESP 18; TEMP 36.6; O2SAT 95
== END 2023-07-28 14:37 | disposition home or self-care (01) ==
PROVIDERS: Emergency Provider Nurse Practitioner Family; PCP Family Medicine
DX: M54.50 Low back pain, unspecified (principal); F17.210 Nicotine dependence, cigarettes, uncomplicated; J44.9 Chronic obstructive pulmonary disease, unspecified; I48.0 Paroxysmal atrial fibrillation; I25.119 Atherosclerotic heart disease of native coronary artery with unspecified angina pectoris; I11.9 Hypertensive heart disease without heart failure; E78.5 Hyperlipidemia, unspecified; M47.816 Spondylosis without myelopathy or radiculopathy, lumbar region; M54.16 Radiculopathy, lumbar region
CPT/HCPCS: 96372; 99212; 99214; G0463

== ENCOUNTER 2023-08-25 13:24 | Emergency (ER) | payer MEDICARE, BC, SELFPAY ==
[2023-08-25 13:35] VITALS: BP 135/89; PULSE 109; RESP 18; TEMP 36.9; O2SAT 95; BMI 29.9
--- NOTE | 2023-08-25 13:42 | EXP.UTC ---
Discharge Plan Disposition Patient Disposition: Home, Self-Care Condition: Good Prescriptions Prescriptions: New benzonatate [benzonatate] 100 mg capsule 100 mg PO TIDP PRN (Reason: Cough) Qty: 30 0RF amoxicillin-pot clavulanate 875-125 mg Tablet 1 tab PO Q12H Qty: 20 0RF methylprednisolone 4 mg Tablets,Dose Pack 4 mg PO DIRECTED Qty: 21 0RF guaifenesin [Mucinex] 600 mg tablet extended release 12hr 600 - 1,200 mg PO BIDP PRN (Reason: Congestion) Qty: 30 0RF No Action omega-3 acid ethyl esters [Lovaza] 1 gram capsule 1 g PO BID pantoprazole 40 mg tablet,delayed release (DR/EC) 40 mg PO DAILY Patient Comments: TAKE 1 TABLET BY MOUTH DAILY. docusate sodium 100 mg capsule 100 mg PO BID duloxetine 60 mg capsule,delayed release(DR/EC) 60 mg PO DAILY Stiolto Respimat 2.5-2.5 mcg/actuation mist 2 puff inhalation DAILY clopidogrel 75 mg tablet 75 mg PO DAILY Qty: 90 1RF tamsulosin 0.4 mg capsule 0.4 mg PO HS cholecalciferol (vitamin D3) 10 mcg (400 unit) capsule 400 units PO DAILY psyllium husk [Daily Fiber] 0.4 gram capsule 0.4 g PO DAILY diazepam 5 mg tablet 5 mg PO TIDP PRN (Reason: Anxiety) oxycodone-acetaminophen 5-325 mg tablet 1 tab PO ONCE nitroglycerin [Nitrostat] 0.4 mg tablet, sublingual 0.4 mg SL Q5M PRN (Reason: chest pain) Qty: 20 0RF Rx Instructions: do not exceed 3 doses per episode rivaroxaban 20 mg tablet 20 mg PO DAILY Qty: 90 3RF albuterol sulfate 90 mcg/actuation HFA aerosol inhaler 2 inh inhalation Q8H PRN (Reason: shortness of breath or wheezing) Qty: 8.5 0RF Rx Instructions: Please take 2 to 4 puffs every 4 hours for the first 48 hours then as needed following that metoprolol succinate 50 mg tablet extended release 24 hr 50 mg PO DAILY bupropion HCl 100 mg tablet 100 mg PO DAILY atorvastatin 10 mg tablet 10 mg PO DAILY ranolazine 1,000 mg tablet extended release 12 hr 1,000 mg PO BID cyclobenzaprine 10 mg Tablet 10 mg PO BID PRN (Reason: Muscle Spasm) Qty: 20 0RF Referrals Follow up/Referrals: Cheko Heredia MD [Primary Care Provider] - See instructions Activity Restrictions/Add. Instructions Additional Instructions/Restrictions: Drink plenty of fluids. Take tylenol or ibuprofen for pain or fever. Take the medications as directed. Follow up with your regular doctor. GO TO THE ER FOR ANY WORSENING SYMPTOMS Don't start the oral steroids (methylprednisone) until tomorrow, since you had the shot here today. Clinical Impressions Clinical Impression: Sinusitis, Bronchitis Instructions Patient Instructions: DI for Sinusitis, DI for Acute Bronchitis, Dexamethasone Injection Discharge ED Provider: Karson Gasca [facility] General Stated complaint: congested,cough Time Seen by Provider: 08/25/23 13:42 History of Present Illness Provider Complaint: He states that for the past 1 week he has had sinus congestion, scratchy throat, chest congestion, and a productive cough with yellowish sputum. He denies any fever/chills/body aches. He denies any covid-19 exposure. Related Data Home Medications Medication Instructions Recorded Confirmed omega-3 acid ethyl esters 1 gram 1 g PO BID Supplement 10/14/17 08/25/23 capsule (Lovaza) cholecalciferol (vitamin D3) 10 400 units PO DAILY Supplement 05/09/21 08/25/23 mcg (400 unit) capsule diazepam 5 mg tablet 5 mg PO TIDP PRN Anxiety 05/09/21 08/25/23 psyllium husk 0.4 gram capsule 0.4 g PO DAILY constipation 05/09/21 08/25/23 (Daily Fiber) tamsulosin 0.4 mg capsule 0.4 mg PO HS prostate problems 05/09/21 08/25/23 oxycodone-acetaminophen 5 mg-325 1 tab PO ONCE Pain 07/18/21 08/25/23 mg tablet docusate sodium 100 mg capsule 100 mg PO BID stool softner 08/29/21 08/25/23 pantoprazole 40 mg tablet,delayed 40 mg PO DAILY gerd 08/29/21 08/25/23 release dulox
[2023-08-25 14:45] VITALS: BP 135/89; PULSE 109; RESP 18; TEMP 36.9; O2SAT 95
== END 2023-08-25 14:45 | disposition home or self-care (01) ==
PROVIDERS: Emergency Provider Nurse Practitioner Family; PCP Family Medicine
DX: J20.9 Acute bronchitis, unspecified (principal); J01.90 Acute sinusitis, unspecified; R05.8 Other specified cough; R09.81 Nasal congestion; R07.0 Pain in throat; R09.89 Other specified symptoms and signs involving the circulatory and respiratory systems; F17.210 Nicotine dependence, cigarettes, uncomplicated; J44.9 Chronic obstructive pulmonary disease, unspecified; I25.119 Atherosclerotic heart disease of native coronary artery with unspecified angina pectoris; I11.9 Hypertensive heart disease without heart failure; E78.5 Hyperlipidemia, unspecified; I65.23 Occlusion and stenosis of bilateral carotid arteries; Z79.01 Long term (current) use of anticoagulants
CPT/HCPCS: 96372; 99212; 99214; G0463

== ENCOUNTER 2023-11-20 14:44 | Emergency (ER) | payer MEDICARE, BC, SELFPAY ==
[2023-11-20 14:55] VITALS: BP 105/65; PULSE 83; RESP 21; TEMP 36.8; O2SAT 98; BMI 30.2
--- NOTE | 2023-11-20 15:23 | EXP.UTC ---
Discharge Plan Disposition Patient Disposition: Home, Self-Care Condition: Good Prescriptions Prescriptions: No Action omega-3 acid ethyl esters [Lovaza] 1 gram capsule 1 g PO BID pantoprazole 40 mg tablet,delayed release (DR/EC) 40 mg PO DAILY Patient Comments: TAKE 1 TABLET BY MOUTH DAILY. docusate sodium 100 mg capsule 100 mg PO BID duloxetine 60 mg capsule,delayed release(DR/EC) 60 mg PO DAILY Stiolto Respimat 2.5-2.5 mcg/actuation mist 2 puff inhalation DAILY clopidogrel 75 mg tablet 75 mg PO DAILY Qty: 90 1RF tamsulosin 0.4 mg capsule 0.4 mg PO HS cholecalciferol (vitamin D3) 10 mcg (400 unit) capsule 400 units PO DAILY psyllium husk [Daily Fiber] 0.4 gram capsule 0.4 g PO DAILY diazepam 5 mg tablet 5 mg PO TIDP PRN (Reason: Anxiety) oxycodone-acetaminophen 5-325 mg tablet 1 tab PO ONCE nitroglycerin [Nitrostat] 0.4 mg tablet, sublingual 0.4 mg SL Q5M PRN (Reason: chest pain) Qty: 20 0RF Rx Instructions: do not exceed 3 doses per episode rivaroxaban 20 mg tablet 20 mg PO DAILY Qty: 90 3RF ranolazine 1,000 mg tablet extended release 12 hr See Rx Instructions .ROUTE .COMPLEX Qty: 180 4RF Dose Instruction: Take 1 Tablet by mouth twice daily. Rx Instructions: Take 1 Tablet by mouth twice daily. albuterol sulfate 90 mcg/actuation HFA aerosol inhaler 2 inh inhalation Q8H PRN (Reason: shortness of breath or wheezing) Qty: 8.5 0RF Rx Instructions: Please take 2 to 4 puffs every 4 hours for the first 48 hours then as needed following that metoprolol succinate 50 mg tablet extended release 24 hr 50 mg PO DAILY bupropion HCl 100 mg tablet 100 mg PO DAILY atorvastatin 10 mg tablet 10 mg PO DAILY benzonatate [benzonatate] 100 mg capsule 100 mg PO TIDP PRN (Reason: Cough) Qty: 30 0RF amoxicillin-pot clavulanate 875-125 mg Tablet 1 tab PO Q12H Qty: 20 0RF methylprednisolone 4 mg Tablets,Dose Pack 4 mg PO DIRECTED Qty: 21 0RF guaifenesin [Mucinex] 600 mg tablet extended release 12hr 600 - 1,200 mg PO BIDP PRN (Reason: Congestion) Qty: 30 0RF cyclobenzaprine 10 mg Tablet 10 mg PO BID PRN (Reason: Muscle Spasm) Qty: 20 0RF Referrals Follow up/Referrals: Cheko Heredia MD [Primary Care Provider] - See instructions Activity Restrictions/Add. Instructions Additional Instructions/Restrictions: Follow up with your Family Doctor if symptoms continue Return if needed Take it easy for the next couple of days and allow medication to help with pain Heating pad may help with discomfort but do not sleep with it on Clinical Impressions Clinical Impression: Low back pain Instructions Patient Instructions: Low Back Pain, DI for Low Back Pain Discharge ED Provider: Rosana Hancock [facility] General Stated complaint: lower back pain Mode of Arrival: Ambulatory Source of Information: Patient Limitations: No Limitations Time Seen by Provider: 11/20/23 15:27 Description of Symptoms (Recalled from Triage Doc. by RN): PATIENT C/O LOWER BACK PAIN THAT STARTED LAST WEEK. NO KNOWN INJURY. PATIENT REPORTS A HISTORY OF LOW BACK PAIN HEENT Symptoms (Recalled from RN notes): No Resp Symptoms (Recalled from RN notes): No Skin Symptoms (Recalled from RN notes): No MS Symptoms (Recalled from RN notes): Yes Functional Status (Recalled from RN notes): WNL History of Present Illness Provider Complaint: Patient states that he has a hx of lower back pain and sometimes it flares up and he has to come in and get a couple shots and it gets better States just had xray last week States that pain is in his lower back and hurts worse when he moves and sometimes will go into his upper legs Denies new injury and denies loss of control of bowel or bladder Related Data Home Medications Medication Instructions Recorded Confirmed omega-3 acid ethyl esters 1 gram 1 g PO BID Supplement 10/14/17 08/25/23 capsule (Lovaza) cholecalciferol (vitamin D3) 10 400 units PO DAILY Supplement 05/09/21 08/25/23 mcg (400 unit) capsule diazepam 5 mg tablet 5 mg PO TIDP PRN Anxiety 05/09/21 08/25/23 psyllium husk 0.4 gram capsule 0.4 g PO DAILY constipation 05/09/21 08/25/23 (Daily Fiber) tamsulosin 0.4 mg capsule 0.4 mg PO HS prostate problems 05/09/21 08/25/23 oxycodone-acetaminophen 5 mg-325 1 tab PO ONCE Pain 07/18/21 08/25/23 mg tablet docusate sodium 100 mg capsule 100 mg PO BID stool softner 08/29/21 08/25/23 pantoprazole 40 mg tablet,delayed 40 mg PO DAILY gerd 08/29/21 08/25/23 release duloxetine 60 mg capsule,delayed 60 mg PO DAILY mood 02/27/22 08/25/23 release tiotropium 2.5 mcg-olodaterol 2.5 2 puff inhalation DAILY . 07/31/22 08/25/23 mcg/actuation mist for inhalation (Stiolto Respimat) atorvastatin 10 mg tablet 10 mg PO DAILY Cholesterol 05/28/23 08/25/23 bupropion HCl 100 mg tablet 100 mg PO DAILY mood 05/28/23 08/25/23 metoprolol succinate 50 mg 50 mg PO DAILY Heart Disease 05/28/23 08/25/23 tablet,extended release 24 hr Previous Rx's Medication Instructions Recorded nitroglycerin 0.4 mg sublingual 0.4 mg sublingual Q5M PRN chest 05/02/22 tablet (Nitrostat) pain #20 tabs clopidogrel 75 mg tablet 75 mg PO DAILY High cholesterol 07/31/22 #90 tabs albuterol sulfate 90 mcg/actuation 2 inh inhalation Q8H PRN shortness 10/21/22 aerosol inhaler of breath or wheezing #8.5 grams rivaroxaban 20 mg tablet 20 mg PO DAILY Blood thinner #90 04/11/23 tabs cyclobenzaprine 10 mg tablet 10 mg PO BID PRN Muscle Spasm #20 07/28/23 tabs amoxicillin 875 mg-potassium 1 tab PO Q12H #20 tabs 08/25/23 clavulanate 125 mg tablet benzonatate 100 mg capsule 100 mg PO TIDP PRN Cough #30 caps 08/25/23 guaifenesin 600 mg tablet, 600 - 1,200 mg (1 - 2 x 600 mg) PO 08/25/23 extended release 12 hr (Mucinex) BIDP PRN Congestion #30 tabs methylprednisolone 4 mg tablets in 4 mg PO DIRECTED #21 tabs 08/25/23 a dose pack ranolazine 1,000 mg See Rx Instructions .Route 10/13/23 tablet,extended release,12 hr .COMPLEX #180 tabs Allergies Allergy/AdvReac Type Severity Reaction Status Date / Time Sulfa (Sulfonamide Allergy Unknown Verified 08/25/23 13:59 Antibiotics) Worker's Comp Is this a Worker's Comp case?: No [facility] Disclaimer: The information contained in this section may have been updated after the patient was seen, as this information can be updated by other users. Medical History Abnormal electrocardiography Atrial fibrillation Atrial fibrillation with RVR Atypical angina Bilateral carotid artery stenosis CAD (coronary artery disease) COPD (chronic obstructive pulmonary disease) Daytime somnolence Dyspnea Fatigue HLD (hyperlipidemia) HTN (hypertension) Tobacco dependence syndrome Surgical History History of cardiac radiofrequency ablation Family History Other Family history of cancer Family history of diabetes mellitus Social History Smoking Status: Current every day smoker tobacco type: cigarettes packs per day: 1 alcohol intake: never substance use type: denies use current occupational status: unemployed and retired Travel in the last 8 weeks: Inside the [place] household members: none housing: house current occupational exposures/hazards: No ROS Obtained: Yes All systems reviewed & no additional complaints except as documented and Yes Systems reviewed as appropriate & no additional complaints except as documented Constitutional Constitutional: Reports system reviewed and no additional complaints, except as documented, Reports as per HPI, Denies body ache, Denies chills and Denies fever(s) ENT Ears, Nose, Mouth, and Throat: Reports system reviewed and no additional complaints, except as documented and Reports as per HPI Cardiovascular Cardiovascular: Reports system reviewed and no additional complaints, except as documented and Reports as per HPI Respiratory Respiratory: Reports system reviewed and no additional complaints, except as documented and Reports as per HPI Gastrointestinal Gastrointestingal: Reports system reviewed and no additional complaints, except as documented and as per HPI; Denies abdominal pain Genitourinary Male Genitourinary: Reports system reviewed and no additional complaints, except as documented and Reports as per HPI Musculoskeletal Musculoskeletal: Reports system reviewed and no additional complaints, except as documented, Reports as per HPI and Reports back pain (low back pain that sometimes goes into buttock and upper legs) Physical Exam General General appearance: alert and in no apparent distress ENT ENT exam: Present mucous membranes moist Respiratory Respiratory exam: Present normal lung sounds bilaterally; Absent respiratory distress or wheezes Cardiovascular Cardiovascular exam: Present regular rate, normal rhythm and normal heart sounds Abdominal Exam Abdominal exam: Present soft and normal bowel sounds; Absent distention or tenderness Back Exam Back exam: Present tenderness Back 1 view image: 1. reports tenderness and achy like feeling in lower back that sometimes goes into buttock area and upper legs Denies injury Denies loss of control of bowel or bladder Neurological Exam Neurological exam: Present alert, oriented X3 and normal gait Medical Decision Making Eliel Inquiry Pt receiving controlled substance: No Eliel was queried for this patient: No Vital Signs: 11/20/23 14:55 Temperature 98.3 F Temperature Source Oral Pulse Rate [Right Brachial] 83 Respiratory Rate 21 Blood Pressure [Right Arm] 105/65 L Blood Pressure Mean [Right Arm] 78 Blood Pressure Source [Right Arm] Automatic Cuff Blood Pressure Position [Right Arm] Sitting 02 Sat by Pulse Oximetry 98 Oxygen Delivery Method Room Air Medical Decision Narrative: Patient states that he has had Toradol and Steriod injections in past without complications or reactions Recommended Xray of Lspine and patient declined
[2023-11-20] MEDS: METHYLPREDNISOLONE SOD SUCC 125MG VIAL 125 MG IM (15:45)
[2023-11-20] MEDS: KETOROLAC 30MG/ML VIAL 15 MG IM (15:45)
[2023-11-20 15:56] VITALS: BP 105/65; PULSE 83; RESP 21; TEMP 36.8; O2SAT 98
== END 2023-11-20 15:58 | disposition home or self-care (01) ==
PROVIDERS: Emergency Provider Nurse Practitioner; PCP Family Medicine
DX: M54.50 Low back pain, unspecified (principal); F17.210 Nicotine dependence, cigarettes, uncomplicated; J44.9 Chronic obstructive pulmonary disease, unspecified; I11.9 Hypertensive heart disease without heart failure; I25.119 Atherosclerotic heart disease of native coronary artery with unspecified angina pectoris; E78.5 Hyperlipidemia, unspecified
CPT/HCPCS: 96372; 99212; 99214; G0463

== ENCOUNTER 2024-02-02 13:46 | Outpatient (CLI) | payer MEDICARE, BC, SELFPAY ==
--- NOTE | 2024-02-02 13:46 | CA_ITS ---
FINAL REPORT TECHNIQUE: Color Doppler, duplex Doppler and weinstein scale sonography of the bilateral neck vasculature was performed. Velocities were measured in the carotid arteries. Stenosis evaluation based on velocity criteria. CLINICAL HISTORY: MALLORIE,RT ICA OCCLUSION,SMOKER,HLD COMPARISON: 07/26/2022 FINDINGS: The peak systolic velocity of the right common carotid artery is 66.3 the right internal carotid artery is known to be occluded. Cm/sec. The ICA/CCA ratio could not be determined. The external carotid artery is patent. The right vertebral artery is patent with antegrade flow. The peak systolic velocity of the left common carotid artery is 85 cm/sec and internal carotid artery 161 cm/sec. The diastolic velocity in the internal carotid artery is 43 cm/sec. The ICA/CCA ratio is 2.25. Visually, a moderate amount of densely calcified plaque is present. These findings are consistent with less than 50% stenosis. The external carotid artery is patent. The left vertebral artery is patent with antegrade flow. IMPRESSION: Known occlusion of the right internal carotid artery. Less than 50% stenosis of the left internal carotid artery. Bilateral patent vertebral arteries. If indicated, CTA or MRA could further evaluate. Reviewed, Interpreted and Dictated by Min Castrejon MD Transcribed by Poly Love Authenticated and [facility]
== END 2024-02-02 23:59 | disposition home or self-care (01) ==
LOC: RT 13:46
PROVIDERS: PCP Family Medicine; Visit Provider Physician Assistant
DX: I65.23 Occlusion and stenosis of bilateral carotid arteries (principal)
CPT/HCPCS: 93880

== ENCOUNTER 2024-02-16 14:56 | Emergency (ER) | payer MEDICARE, BC, SELFPAY ==
[2024-02-16] VITALS (9 sets, daily range): BP systolic 105–142; BP diastolic 76–98; PULSE 62–136; RESP 15–20; TEMP 36.8–37.1; O2SAT 92–98; BMI 29.5
--- NOTE | 2024-02-16 | ECG_ITS ---
APPROVED REPORT Exam: Resting ECG HR:135 bpm ECG Measurements Heart Rate 135 AXES QRSd 119 QRS 70 QT 296 T 69 QTc 375 Conclusion ATRIAL FLUTTER vs AF RVR with U wave no ischemic change Electronically signed by : VICENTA GALLAGHER, 02/16/2024 19:29:05
--- NOTE | 2024-02-16 15:05 | XR_ITS ---
FINAL REPORT CLINICAL HISTORY: cp COMPARISON: 05/28/2023 FINDINGS: 2 views of the chest were obtained . The heart is normal in size. The mediastinum is within normal limits. There are right midlung opacities which represent atelectasis or pneumonia. There is right lung bronchial wall thickening. There is no pneumothorax. Osseous structures are unremarkable. IMPRESSION: Bronchitis with right midlung opacities which may represent atelectasis or pneumonia. Reviewed, Interpreted and Dictated by Ashish Harvey III, MD Transcribed by Sarah Hudson Authenticated and [facility]
[2024-02-16] MEDS: ASPIRIN 81MG CHEWABLE TABLET 324 MG PO (15:06)
[2024-02-16 15:13] LABS: Basophils % 0.6 % (0.1-2.0); Eosinophils # 0.1 K/mm3 (0.0-0.4); Eosinophils % 1.3 % (0.1-12.0); Hematocrit 41.6 % (42.0-52.0); Lymphocytes # 1.5 K/mm3 (0.7-4.5); Lymphocytes % 24.5 % (10-50); Mean Corpuscular HGB Conc 31.3 g/dL (31.8-35.4); Mean Corpuscular Hemoglobin 31.3 pg (27.0-31.2); Mean Corpuscular Volume 99.8 fl (80-94); Mean Platelet Volume 7.4 fl (7.4-10.4); Monocytes # 0.4 K/mm3 (0.1-1.0); Monocytes % 6.9 % (1.7-9.3); Neutrophils # 4.2 K/mm3 (1.8-7.8); Neutrophils % 66.7 % (37.0-80.0); Platelet Count 249 K/mm3 (142-424); Red Blood Count 4.17 M/mm3 (4.60-6.20); White Blood Count 6.2 K/mm3 (4.8-10.8)
[2024-02-16 15:19] LABS: Chloride 103 mmol/L (98-107); Potassium 4.2 mmoL/L (3.5-5.1); Sodium 140 mmol/L (136-145)
[2024-02-16 15:21] LABS: Alanine Aminotransferase 21 U/L (12-78); Alkaline Phosphatase 77 U/L (38-126); Aspartate Amino Transferase 25 U/L (17-59); Bilirubin,Total 0.8 mg/dl (0.2-1.3); Blood Urea Nitrogen 11 mg/dl (9-20); Creatinine Clearance Estimated 84 mL/min (50-200); Estimated Glomerular Filt Rate 72 ml/min (>60); GFR (African American) 88 ML/MIN (>60)
[2024-02-16 15:22] LABS: Albumin/Globulin Ratio 1.4 (1.1-1.8); Anion Gap 10.2 mEq/L (5-15); Calcium 9.5 mg/dl (8.4-10.2); Carbon Dioxide 31 mmol/L (22.0-30.0); Globulin 2.9 g/dL (1.3-3.2); Glucose 125 mg/dl (74-100); Total Protein,Serum 6.9 g/dl (6.3-8.2)
--- NOTE | 2024-02-16 15:31 | ED_ITS ---
Discharge Plan Disposition Patient Disposition: Home, Self-Care Prescriptions Prescriptions: No Action omega-3 acid ethyl esters [Lovaza] 1 gram capsule 1 g PO BID pantoprazole 40 mg tablet,delayed release (DR/EC) 40 mg PO DAILY Patient Comments: TAKE 1 TABLET BY MOUTH DAILY. docusate sodium 100 mg capsule 100 mg PO BID duloxetine 60 mg capsule,delayed release(DR/EC) 60 mg PO DAILY Stiolto Respimat 2.5-2.5 mcg/actuation mist 2 puff inhalation DAILY clopidogrel 75 mg tablet 75 mg PO DAILY Qty: 90 1RF tamsulosin 0.4 mg capsule 0.4 mg PO HS cholecalciferol (vitamin D3) 10 mcg (400 unit) capsule 400 units PO DAILY psyllium husk [Daily Fiber] 0.4 gram capsule 0.4 g PO DAILY diazepam 5 mg tablet 5 mg PO TIDP PRN (Reason: Anxiety) oxycodone-acetaminophen 5-325 mg tablet 1 tab PO ONCE fluoxetine [Prozac] 20 mg capsule 20 mg PO DAILY Qty: 30 1RF nitroglycerin [Nitrostat] 0.4 mg tablet, sublingual 0.4 mg SL Q5M PRN (Reason: chest pain) Qty: 20 0RF Rx Instructions: do not exceed 3 doses per episode rivaroxaban 20 mg tablet 20 mg PO DAILY Qty: 90 3RF ranolazine 1,000 mg tablet extended release 12 hr See Rx Instructions .ROUTE .COMPLEX Qty: 180 4RF Dose Instruction: Take 1 Tablet by mouth twice daily. Rx Instructions: Take 1 Tablet by mouth twice daily. albuterol sulfate 90 mcg/actuation HFA aerosol inhaler 2 inh inhalation Q8H PRN (Reason: shortness of breath or wheezing) Qty: 8.5 0RF Rx Instructions: Please take 2 to 4 puffs every 4 hours for the first 48 hours then as needed following that metoprolol succinate 50 mg tablet extended release 24 hr 50 mg PO DAILY atorvastatin 10 mg tablet 10 mg PO DAILY cyclobenzaprine 10 mg Tablet 10 mg PO BID PRN (Reason: Muscle Spasm) Qty: 20 0RF Referrals Follow up/Referrals: Cheko Heredia MD [Primary Care Provider] - See instructions Activity Restrictions/Add. Instructions Additional Instructions/Restrictions: Follow-up with Dr. Hull's office tomorrow, 02/16. Call them to schedule an appointment, or just walk-in and tell them you were seen today, discussed with Dr. Hull on 02/15 while in the emergency department. Call your family doctor to establish care for this visit to the emergency department and schedule follow-up within 48 hours to ensure improvement. If you have any worsening of your condition or any other concerning signs or symptoms, return to the emergency department or your primary care doctor for further evaluation. Clinical Impressions Clinical Impression: Atrial flutter with rapid ventricular response, Chest pressure Discharge ED Provider: Basim Mojica General Adult HPI General Chief complaint: Arrhythmia/Palpitations Stated complaint: chest pain Time Seen by Provider: 02/16/24 15:10 Mode of Arrival: Ambulatory Source of Information: Patient Limitations: No Limitations Description of Symptoms (Recalled from ER Triage Doc. by RN): pt to ed c/o center chest tightness since last friday. pt states he has a hx of afib. pt reports intermittent pain. History of Present Illness HPI narrative: Please note that above description of symptoms, in this electronic medical record under categorization of recalled from ER triage doctor by RN are reflective of an initial nursing assessment, however, is not reflective of my full history and physical exam that was personally taken and clarified. Consequentially, this preceding description of symptoms, which may include the patient's categorized chief complaint in the EMR, do not reflect my personal clinical impression, and the ultimate description of history of present illness and patient stated complaints should be deferred to this section of the note. Unless stated otherwise or congruent with this section of the note, additional signs, symptoms, or incongruence should be interpreted as inaccurate with my clinical impression. Related Data Home Medications Medication Instructions Recorded Confirmed omega-3 acid ethyl esters 1 gram 1 g PO BID Supplement 10/14/17 01/26/24 capsule (Lovaza) cholecalciferol (vitamin D3) 10 400 units PO DAILY Supplement 05/09/21 01/26/24 mcg (400 unit) capsule diazepam 5 mg tablet 5 mg PO TIDP PRN Anxiety 05/09/21 01/26/24 psyllium husk 0.4 gram capsule 0.4 g PO DAILY constipation 05/09/21 01/26/24 (Daily Fiber) tamsulosin 0.4 mg capsule 0.4 mg PO HS prostate problems 05/09/21 01/26/24 oxycodone-acetaminophen 5 mg-325 1 tab PO ONCE Pain 07/18/21 01/26/24 mg tablet docusate sodium 100 mg capsule 100 mg PO BID stool softner 08/29/21 01/26/24 pantoprazole 40 mg tablet,delayed 40 mg PO DAILY gerd 08/29/21 01/26/24 release duloxetine 60 mg capsule,delayed 60 mg PO DAILY mood 02/27/22 01/26/24 release tiotropium 2.5 mcg-olodaterol 2.5 2 puff inhalation DAILY . 07/31/22 01/26/24 mcg/actuation mist for inhalation (Stiolto Respimat) atorvastatin 10 mg tablet 10 mg PO DAILY Cholesterol 05/28/23 01/26/24 metoprolol succinate 50 mg 50 mg PO DAILY Heart Disease 05/28/23 01/26/24 tablet,extended release 24 hr Previous Rx's Medication Instructions Recorded nitroglycerin 0.4 mg sublingual 0.4 mg sublingual Q5M PRN chest 05/02/22 tablet (Nitrostat) pain #20 tabs clopidogrel 75 mg tablet 75 mg PO DAILY High cholesterol 07/31/22 #90 tabs albuterol sulfate 90 mcg/actuation 2 inh inhalation Q8H PRN shortness 10/21/22 aerosol inhaler of breath or wheezing #8.5 grams rivaroxaban 20 mg tablet 20 mg PO DAILY Blood thinner #90 04/11/23 tabs cyclobenzaprine 10 mg tablet 10 mg PO BID PRN Muscle Spasm #20 07/28/23 tabs ranolazine 1,000 mg See Rx Instructions .Route 10/13/23 tablet,extended release,12 hr .COMPLEX #180 tabs fluoxetine 20 mg capsule (Prozac) 20 mg PO DAILY #30 caps 12/03/23 Allergies Allergy/AdvReac Type Severity Reaction Status Date / Time Sulfa (Sulfonamide Allergy Unknown Verified 01/26/24 12:53 Antibiotics) [facility] Disclaimer: The information contained in this section may have been updated after the patient was seen, as this information can be updated by other users. Medical History (Updated 02/16/24 @ 19:10 by Basim Mojica MD) Major depressive disorder Atypical angina COPD (chronic obstructive pulmonary disease) Dyspnea Fatigue Daytime somnolence Bilateral carotid artery stenosis Tobacco dependence syndrome Atrial fibrillation with RVR Atrial fibrillation HLD (hyperlipidemia) HTN (hypertension) Abnormal electrocardiography CAD (coronary artery disease) Surgical History History of cardiac radiofrequency ablation Family History Other Family history of cancer Family history of diabetes mellitus Social History Smoking Status: Never smoker alcohol intake: never substance use type: denies use current occupational status: unemployed and retired Travel in the last 8 weeks: Inside the [place] household members: none housing: house current occupational exposures/hazards: No ROS Obtained: Yes All systems reviewed & no additional complaints except as documented Physical Exam General General appearance: alert and in no apparent distress Head Head exam: atraumatic and normocephalic Eye Eye exam: Present normal appearance, PERRL and EOMI ENT ENT exam: Present mucous membranes moist Neck Neck exam: Present normal inspection, full ROM and trachea midline Respiratory Respiratory exam: Present normal lung sounds bilaterally; Absent respiratory distress, wheezes, stridor, accessory muscle use or prolonged expiratory phase Cardiovascular Cardiovascular exam: Present normal rhythm and tachycardia Abdominal Exam Abdominal exam: Present soft; Absent distention, tenderness, guarding, rebound or rigidity Extremities Exam Extremities exam: Present edema (2+ bilateral lower extremity pitting) Neurological Exam Neurological exam: Present alert, oriented X3, CN II-XII intact and normal gait; Absent motor sensory deficit Skin Skin exam: Present warm and dry; Absent diaphoresis or erythema Medical Decision Making Medical Records Medical records reviewed: Yes I reviewed the patient's medical records. Eliel Inquiry Pt receiving controlled substance: No Eliel was queried for this patient: No Vital Signs: 02/16/24 15:20 02/16/24 16:05 02/16/24 16:30 Temperature 98.2 F Temperature Source Oral Pulse Rate 133 H 132 H Pulse Rate [Left Radial] 136 H Respiratory Rate 20 15 16 Blood Pressure 116/81 117/84 Blood Pressure [Right Arm] 142/98 H Blood Pressure Mean Blood Pressure Mean [Right Arm] 112 02 Sat by Pulse Oximetry 96 93 L 94 L Oxygen Delivery Method Room Air Room Air Room Air 02/16/24 17:00 02/16/24 17:30 02/16/24 18:22 Temperature Temperature Source Pulse Rate 134 H 86 71 Pulse Rate [Left Radial] Respiratory Rate 15 16 20 Blood Pressure 121/86 105/78 L 133/87 Blood Pressure [Right Arm] Blood Pressure Mean 84 Blood Pressure Mean [Right Arm] 02 Sat by Pulse Oximetry 92 L 97 97 Oxygen Delivery Method Room Air Room Air 02/16/24 18:31 02/16/24 18:45 Temperature Temperature Source Pulse Rate 62 69 Pulse Rate [Left Radial] Respiratory Rate 19 18 Blood Pressure 119/80 107/77 L Blood Pressure [Right Arm] Blood Pressure Mean Blood Pressure Mean [Right Arm] 02 Sat by Pulse Oximetry 97 98 Oxygen Delivery Method Room Air Room Air Lab Data Lab Results 02/16/24 15:03: WBC 6.2, RBC 4.17 L, Hgb 13.0 L, Hct 41.6 L, MCV 99.8 H, MCH 31.3 H, MCHC 31.3 L, RDW 14.0, Plt Count 249, MPV 7.4, Neut % (Auto) 66.7, Lymph % (Auto) 24.5, [place] % (Auto) 6.9, Eos % (Auto) 1.3, Baso % (Auto) 0.6, Neut # (Auto) 4.2, Lymph # (Auto) 1.5, [place] # (Auto) 0.4, Eos # (Auto) 0.1, Baso # (Auto) 0.0, Sodium 140, Potassium 4.2, Chloride 103, Carbon Dioxide 31 H, Anion Gap 10.2, BUN 11, Creatinine 1.00, Estimated Creat Clear 84, Estimated GFR 72, Est GFR ( Amer) 88, Glucose 125 H, Calcium 9.5, Magnesium 1.9, Total Bilirubin 0.8, AST 25, ALT 21, Alkaline Phosphatase 77, Troponin I < 0.01, N T-Pro-B Natriuret Pep 1790 H, Total Protein 6.9, Albumin 4.0, Globulin 2.9, Albumin/Globulin Ratio 1.4 02/16/24 18:25: Troponin I < 0.01 02/16/24 15:03 02/16/24 15:03 Orders (Tests/Meds): ED MEDICATIONS Discontinued Medications Generic Name Dose Route Start Last Admin Trade Name Freq PRN Reason Stop Dose Admin Aspirin 324 mg 02/16/24 15:05 02/16/24 15:06 Aspirin 81mg Chewable Tablet PO 02/16/24 15:06 324 mg ONCE ONE Administration Diltiazem HCl 20 mg 02/16/24 16:33 02/16/24 16:41 Diltiazem 25mg/5ml Vial IV 02/16/24 16:34 20 mg ONCE ONE Administration Diltiazem HCl 25 mg 02/16/24 17:00 02/16/24 17:56 Diltiazem 25mg/5ml Vial IV 02/16/24 17:01 Not Given ONCE ONE Diltiazem HCl 180 mg 02/16/24 18:24 Diltiazem Hcl 180mg Cap.Er.24h PO 02/16/24 18:25 DAILY ONE Etomidate 10 mg 02/16/24 17:27 02/16/24 18:11 Etomidate 40mg/20ml Vial IV 02/16/24 17:28 10 mg ONCE ONE Administration Furosemide 60 mg 02/16/24 16:33 02/16/24 16:42 Furosemide 40mg/4ml Vial IV 02/16/24 16:34 60 mg ONCE ONE Administration Metoprolol Tartrate 5 mg 02/16/24 15:29 02/16/24 16:08 Metoprolol Tartrate 5mg/5ml Vial IV 02/16/24 15:30 5 mg ONCE ONE Administration Ondansetron HCl 4 mg 02/16/24 18:48 02/16/24 19:05 Ondansetron 4mg/2ml Vial IV 02/16/24 18:49 4 mg ONCE ONE Administration ORDERS Category Date Time Status XR chest 2V Stat Exams 02/16/24 15:05 Completed Complete Blood Count Auto Diff Stat Lab 02/16/24 15:03 Completed Comprehensive Metabolic Panel Stat Lab 02/16/24 15:03 Completed Magnesium Stat Lab 02/16/24 15:03 Completed NT Pro Brain Natriuretic Pep. Stat Lab 02/16/24 15:03 Completed Troponin I Q3H Lab 02/16/24 18:25 Completed Troponin I Q3H Lab 02/16/24 21:15 Ordered Troponin I Stat Lab 02/16/24 15:03 Completed HEART Score History (anamnesis): Moderately suspicious ECG: Normal Age: >65 years Risk factors: 3 or more risk factors Troponin: </= normal limit HEART Score: 5 Medical Decision Narrative: 78-year-old male history of hypertension, hyperlipidemia, CAD, atrial fibrillation status post ablation currently on Xarelto and Plavix, COPD not on home oxygen not currently smoking presenting with shortness of breath with exertion. Patient states that this has been going on for about 6 days at this point. Worse in the morning, wakes up, feels short of breath with exertion, gets better throughout the day, but generally present. Feels like his heart is racing. Has been taking all his medications as prescribed. He states that he noticed that he has associated lower extremity swelling that started yesterday as well. No fevers or chills, diaphoresis, nausea or vomiting, chest pain. Has also had dry cough. Denies PND or orthopnea. History was obtained via conversation with patient and chart review. On arrival, patient hemodynamically stable, alert, oriented x4, appropriate, GCS 15, moving all extremities spontaneously, pupils equal and reactive to light. Full physical exam performed and significant for well-appearing 78-year-old male who is in no acute distress, but he does have rapid heart rate. Audibly regular 130 to 140 bpm, no aberrant beats. Pulses are equal and symmetric bilateral upper and lower extremities, lower extremities with bilateral 2+ pitting edema. Lungs are clear to auscultation bilaterally anterior and posterior. Saturating 94 to 95% on room air and nontachypneic. Differential includes CHF exacerbation, COPD exacerbation, ACS, OK, A-fib with RVR, pneumothorax, pneumonia, bronchitis, metabolic abnormality, medication noncompliance, among others. Patient was given 324 mg aspirin p.o., 5 mg metoprolol given physical exam findings concerning for CHF for symptomatic management and correction of underlying abnormalities. Workup independently interpreted and significant for nonactionable CBC or chemistry. Independent interpretation of EKG shows A-fib with RVR 135 bpm. Patient's troponin negative, BNP elevated at 1800, Unknown if this is primary or secondary. Patient continued to be in A-fib with RVR, given 20 mg IV diltiazem. Slowed to 100 to 120 bpm. Repeat EKG interpreted independently and patient has atrial flutter about 95 beats a minute average with intermittent conduction. Appears to have first-degree AV block with prolonged AL, QRS 107, QTc 408. Newborn normal. Still no ischemic change. Cardiology was contacted and case was discussed at length, recommended cardioversion whether chemical or electrical. I opted for electrical cardioversion. Patient was given 10 mg IV etomidate. He was cardioverted after synchronization at 200 J. This was successful. Repeat EKG sinus rhythm 71 beats a minute without ST or T wave changes concerning for acute ischemia. Still has prolonged AL interval at 212, but QRS and QTc normal at 110 and 417 respectively. Newborn normal. Chest x-ray without acute cardiopulmonary space disease. No evidence of pulmonary edema. See radiology read for full review of final results. No ST or T wave changes concerning for acute ischemia. QRS 110, QTc 375. Heart score 5. Cardiology recommended oral diltiazem after cardioversion and seeing patient in office tomorrow, 02/16, if remains in normal sinus rhythm. Patient was given oral diltiazem. After being monitored for approximately 1h, deemed appropriate for discharge. Because patient at baseline without signs or symptoms of clinical decompensation, deemed appropriate for discharge. Results were relayed to patient who voiced understanding and were agreeable to outpatient management and follow up. I discussed my clinical impression with patient and answered all questions. At this time, the evidence for any other entities in the differential is insufficient to warrant any further testing or ED observation. This was explained as well. Advisory was given that persistent or worsening symptoms require further evaluation. I confirmed the understanding of this discussion. Core Maker Helper disclaimer Much of this encounter note is an electronic clinical research analyst spoken language to printed text. Electronic clinical research analyst of the spoken language may permit errors. Although I have reviewed the note, some errors may still exist. Critical Care Critical Care Time Critical Care Time: No
[2024-02-16 15:36] LABS: Troponin I < 0.01 ng/ml (0.00-0.034)
[2024-02-16 16:05] LABS: Magnesium 1.9 mg/dl (1.6-2.3)
[2024-02-16] MEDS: METOPROLOL TARTRATE 5MG/5ML VIAL 5 MG IV (16:08)
[2024-02-16 16:15] LABS: NT Pro Brain Natriuretic Pep. 1790 pg/mL (0-450)
[2024-02-16] MEDS: dilTIAZem 25MG/5ML VIAL 20 MG IV (16:41)
[2024-02-16] MEDS: FUROSEMIDE 40MG/4ML VIAL 60 MG IV (16:42)
--- NOTE | 2024-02-16 17:13 | ECG_ITS ---
APPROVED REPORT Exam: Resting ECG HR:95 bpm ECG Measurements Heart Rate 95 AXES QRSd 107 QRS 69 QT 355 T 78 QTc 408 Conclusion ATRIAL FLUTTER Electronically signed by : VICENTA GALLAGHER, 02/16/2024 22:39:45
[2024-02-16] MEDS: ETOMIDATE 40MG/20ML VIAL 10 MG IV (18:11)
--- NOTE | 2024-02-16 18:20 | ECG_ITS ---
APPROVED REPORT Exam: Resting ECG HR:71 bpm ECG Measurements Heart Rate 71 AXES WA 212 P 71 QRSd 110 QRS 62 QT 395 T 72 QTc 417 Conclusion Sinus rhythm first-degree AV block Status post electrical cardioversion Electronically signed by : VICENTA GALLAGHER, 02/16/2024 22:40:01
[2024-02-16 19:04] LABS: Troponin I < 0.01 ng/ml (0.00-0.034)
[2024-02-16] MEDS: ONDANSETRON 4MG/2ML VIAL 4 MG IV (19:05)
[2024-02-16] MEDS: dilTIAZem HCL 180MG CAP.ER.24H 180 MG PO (19:29)
== END 2024-02-16 20:32 | disposition home or self-care (01) ==
PROVIDERS: Emergency Provider Emergency Medicine; PCP Family Medicine
DX: I48.92 Unspecified atrial flutter (principal); R07.9 Chest pain, unspecified; R06.02 Shortness of breath; J44.9 Chronic obstructive pulmonary disease, unspecified; I11.9 Hypertensive heart disease without heart failure; I25.119 Atherosclerotic heart disease of native coronary artery with unspecified angina pectoris; E78.5 Hyperlipidemia, unspecified; I65.23 Occlusion and stenosis of bilateral carotid arteries; Z87.891 Personal history of nicotine dependence; Z79.01 Long term (current) use of anticoagulants
CPT/HCPCS: 36415; 71046; 80053; 83735; 83880; 84484; 85025; 93005; 96374; 96375; 99285; J2405

== ENCOUNTER 2024-02-17 15:45 | Outpatient (CLI) | payer MEDICARE, BC, SELFPAY | END 2024-02-17 23:59 | disposition home or self-care (01) | LOC: RT 15:47 | PROVIDERS: PCP Family Medicine; Visit Provider Internal Medicine | DX: I48.92 Unspecified atrial flutter (principal); I25.5 Ischemic cardiomyopathy; I50.20 Unspecified systolic (congestive) heart failure | CPT/HCPCS: 93270 ==

== ENCOUNTER 2024-02-23 13:02 | Outpatient (CLI) | payer MEDICARE, BC, SELFPAY ==
--- NOTE | 2024-02-23 13:02 | CA_ITS ---
APPROVED REPORT EXAM: Comprehensive 2D, Doppler, and color-flow Echocardiogram Assistant Family Teacher: Sabrina Pimentel RVT Ht: 5 ft 11 in Wt: 216lbs BSA: 2.18 BP: 118/68 mmHg Indications: ABN EKG,A-FIB,CAD,CM,COPD,FATIGUE,HTN,HLD,CURRY 2D Dimensions LA Volume 53.40 mL LA Volume Index 24.50 mL/m2 (M/F) 16-34 M-Mode Dimensions RVDd 3.66 cm (0.9-2.6) LA Diam 4.47 cm (1.9-4.0) LVDd 4.37 cm (3.5-5.7) LVDs 3.62 cm (3.5-5.7) IVSd 1.27 cm (0.6-1.1) PWd 0.85 cm (0.6-1.1) EF (Teich) 36.00% FS 17.20% EDV (Teich) 86.30 mL TAPSE 1.84 (<1.7) ESV (Teich) 55.20 mL Aortic Valve DANNY Index 1.31 cm2/m2 AoV Peak Vladimir. 99.0 (50-130 cm/s) AO Peak GR. 3.90 mmHg AO Mean GR. 2.10 (<5 mmHg) AO VTI 11.8 (18-25 cm) DANNY (VTI) 2.93 (2.5-4.5 cm2) Pulmonary Valve PV Peak Velocity 61.0 (50-150 cm/s) Tricuspid Valve TR P. Velocity 224.00 cm/s RAP Estimate 10.00 mmHg RVSP 30.10 mmHg Left Ventricle The left ventricle is normal size. The left ventricular systolic function is mildly reduced. There is increased LV wall thickness. There is mild global hypokinesis present. Diastolic function is indeterminate. LVEF is 40-45%. Right Ventricle The right ventricle is normal size. The RV systolic function is borderline hypokinetic. Atria Left atrium is mildly dilated. Right atrium is mildly dilated. There is no Doppler evidence of interatrial shunt. Aortic Valve The aortic valve is mildly thickened. There is no aortic valvular stenosis. No aortic regurgitation is present. Mitral Valve The mitral valve leaflets are mildly thickened. No evidence of mitral valve stenosis. Trace mitral regurgitation. Tricuspid Valve The tricuspid valve leaflets are thin and pliable. Mild tricuspid regurgitation. RVSP is 20-25 mmHg. Pulmonic Valve The pulmonary valve is normal in structure. Trace pulmonic regurgitation. Great Vessels The aortic root is normal in size. The ascending aorta is not well-visualized. IVC is normal in size and collapses >50% with inspiration. Pericardium There is no pericardial effusion. Other Information Study Quality: Fair Conclusion Mildly reduced LV systolic function (LVEF 40-45%). RV systolic function is low normal. Biatrial dilation. Mild TR. Compared to prior study from 07/15/2023, the LVEF reduction is new. Electronically signed by : Pratibha Sterling MD 02/25/2024 10:21:31
== END 2024-02-23 23:59 | disposition home or self-care (01) ==
LOC: RT 13:02
PROVIDERS: PCP Family Medicine; Visit Provider Internal Medicine
DX: I48.92 Unspecified atrial flutter (principal); I25.5 Ischemic cardiomyopathy; I50.20 Unspecified systolic (congestive) heart failure; R94.31 Abnormal electrocardiogram [ECG] [EKG]
CPT/HCPCS: 93306

== ENCOUNTER 2024-03-09 15:42 | Emergency (ER) | payer MEDICARE, BC, SELFPAY ==
[2024-03-09 15:50] VITALS: BP 143/86; PULSE 67; RESP 18; TEMP 36.6; O2SAT 95; BMI 29.9
[2024-03-09] MEDS: DEXAMETHASONE 4MG/ML 1ML VIAL 8 MG IM (16:25)
[2024-03-09] MEDS: KETOROLAC 60MG/2ML VIAL 60 MG IM (16:25)
--- NOTE | 2024-03-09 16:43 | EXP.UTC ---
Discharge Plan Disposition Patient Disposition: Home, Self-Care Condition: Good Prescriptions Prescriptions: New cyclobenzaprine 5 mg tablet 5 mg PO TID PRN (Reason: muscle spasm) Qty: 20 0RF No Action omega-3 acid ethyl esters [Lovaza] 1 gram capsule 1 g PO BID pantoprazole 40 mg tablet,delayed release (DR/EC) 40 mg PO DAILY Patient Comments: TAKE 1 TABLET BY MOUTH DAILY. docusate sodium 100 mg capsule 100 mg PO BID duloxetine 60 mg capsule,delayed release(DR/EC) 60 mg PO DAILY Stiolto Respimat 2.5-2.5 mcg/actuation mist 2 puff inhalation DAILY clopidogrel 75 mg tablet 75 mg PO DAILY Qty: 90 1RF amiodarone 400 mg tablet 400 mg PO BID Qty: 60 2RF metoprolol succinate 50 mg tablet extended release 24 hr 50 mg PO DAILY tamsulosin 0.4 mg capsule 0.4 mg PO HS cholecalciferol (vitamin D3) 10 mcg (400 unit) capsule 400 units PO DAILY psyllium husk [Daily Fiber] 0.4 gram capsule 0.4 g PO DAILY diazepam 5 mg tablet 5 mg PO TIDP PRN (Reason: Anxiety) oxycodone-acetaminophen 5-325 mg tablet 1 tab PO ONCE fluoxetine [Prozac] 20 mg capsule 20 mg PO DAILY Qty: 30 1RF nitroglycerin [Nitrostat] 0.4 mg tablet, sublingual 0.4 mg SL Q5M PRN (Reason: chest pain) Qty: 20 0RF Rx Instructions: do not exceed 3 doses per episode rivaroxaban 20 mg tablet 20 mg PO DAILY Qty: 90 3RF ranolazine 1,000 mg tablet extended release 12 hr See Rx Instructions .ROUTE .COMPLEX Qty: 180 4RF Dose Instruction: Take 1 Tablet by mouth twice daily. Rx Instructions: Take 1 Tablet by mouth twice daily. albuterol sulfate 90 mcg/actuation HFA aerosol inhaler 2 inh inhalation Q8H PRN (Reason: shortness of breath or wheezing) Qty: 8.5 0RF Rx Instructions: Please take 2 to 4 puffs every 4 hours for the first 48 hours then as needed following that atorvastatin 10 mg tablet 10 mg PO DAILY Jardiance 10 mg tablet 10 mg PO DAILY cyclobenzaprine 10 mg Tablet 10 mg PO BID PRN (Reason: Muscle Spasm) Qty: 20 0RF Referrals Follow up/Referrals: Cheko Heredia MD [Primary Care Provider] - See instructions Activity Restrictions/Add. Instructions Additional Instructions/Restrictions: Go home and rest. It would be best if you rested tomorrow too. No heavy lifting. No twisting. The muscle relaxer (cyclobenzaprine--Flexeril) will make you drowsy, so don't drive or operate heavy machinery after taking it. Follow up with your regular doctor. GO TO THE ER FOR ANY WORSENING SYMPTOMS OR CONCERN, ESPECIALLY BOWEL OR BLADDER ISSUES, SADDLE AREA NUMBNESS, FEVER, ETC Clinical Impressions Clinical Impression: Low back pain Instructions Patient Instructions: Cyclobenzaprine, Ketorolac Injection, Dexamethasone Injection Discharge ED Provider: Karson Gasca [facility] General Stated complaint: back pain Mode of Arrival: Ambulatory Source of Information: Patient Limitations: No Limitations Time Seen by Provider: 03/09/24 16:52 Description of Symptoms (Recalled from Triage Doc. by RN): Pt has chronic lower back pain. HEENT Symptoms (Recalled from RN notes): No Resp Symptoms (Recalled from RN notes): No Skin Symptoms (Recalled from RN notes): No MS Symptoms (Recalled from RN notes): Yes Functional Status (Recalled from RN notes): n/.a History of Present Illness Provider Complaint: He states that he has a history of chronic low back pain. For the past few days he has had worsening low back pain that radiates down his right leg. He denies any fall or trauma. He denies any urinary symptoms. Related Data Home Medications Medication Instructions Recorded Confirmed omega-3 acid ethyl esters 1 gram 1 g PO BID Supplement 10/14/17 03/09/24 capsule (Lovaza) cholecalciferol (vitamin D3) 10 400 units PO DAILY Supplement 05/09/21 03/09/24 mcg (400 unit) capsule diazepam 5 mg tablet 5 mg PO TIDP PRN Anxiety 05/09/21 03/09/24 psyllium husk 0.4 gram capsule 0.4 g PO DAILY constipation 05/09/21 03/09/24 (Daily Fiber) tamsulosin 0.4 mg capsule 0.4 mg PO HS prostate problems 05/09/21 03/09/24 oxycodone-acetaminophen 5 mg-325 1 tab PO ONCE Pain 07/18/21 03/09/24 mg tablet docusate sodium 100 mg capsule 100 mg PO BID stool softner 08/29/21 03/09/24 pantoprazole 40 mg tablet,delayed 40 mg PO DAILY gerd 08/29/21 03/09/24 release duloxetine 60 mg capsule,delayed 60 mg PO DAILY mood 02/27/22 03/09/24 release tiotropium 2.5 mcg-olodaterol 2.5 2 puff inhalation DAILY . 07/31/22 02/23/24 mcg/actuation mist for inhalation (Stiolto Respimat) atorvastatin 10 mg tablet 10 mg PO DAILY Cholesterol 05/28/23 03/09/24 metoprolol succinate 50 mg 50 mg PO DAILY Heart Disease 02/23/24 03/09/24 tablet,extended release 24 hr empagliflozin 10 mg tablet 10 mg PO DAILY 03/09/24 03/09/24 (Jardiance) Previous Rx's Medication Instructions Recorded nitroglycerin 0.4 mg sublingual 0.4 mg sublingual Q5M PRN chest 05/02/22 tablet (Nitrostat) pain #20 tabs clopidogrel 75 mg tablet 75 mg PO DAILY High cholesterol 07/31/22 #90 tabs albuterol sulfate 90 mcg/actuation 2 inh inhalation Q8H PRN shortness 10/21/22 aerosol inhaler of breath or wheezing #8.5 grams rivaroxaban 20 mg tablet 20 mg PO DAILY Blood thinner #90 04/11/23 tabs cyclobenzaprine 10 mg tablet 10 mg PO BID PRN Muscle Spasm #20 07/28/23 tabs ranolazine 1,000 mg See Rx Instructions .Route 10/13/23 tablet,extended release,12 hr .COMPLEX #180 tabs fluoxetine 20 mg capsule (Prozac) 20 mg PO DAILY #30 caps 12/03/23 amiodarone 400 mg tablet 400 mg PO BID #60 tabs 02/23/24 cyclobenzaprine 5 mg tablet 5 mg PO TID PRN muscle spasm #20 03/09/24 tabs Allergies Allergy/AdvReac Type Severity Reaction Status Date / Time Sulfa (Sulfonamide Allergy Unknown Verified 03/09/24 16:01 Antibiotics) Worker's Comp Is this a Worker's Comp case?: No COUNTS INCLUDE 234 BEDS AT THE [facility] PFS Disclaimer: The information contained in this section may have been updated after the patient was seen, as this information can be updated by other users. Medical History Major depressive disorder Atypical angina COPD (chronic obstructive pulmonary disease) Dyspnea Fatigue Daytime somnolence Bilateral carotid artery stenosis Tobacco dependence syndrome Atrial fibrillation with RVR Atrial fibrillation HLD (hyperlipidemia) HTN (hypertension) Abnormal electrocardiography CAD (coronary artery disease) Surgical History History of cardiac radiofrequency ablation Family History Other Family history of cancer Family history of diabetes mellitus Social History Smoking Status: Never smoker alcohol intake: never substance use type: denies use current occupational status: unemployed and retired Travel in the last 8 weeks: Inside the [place] household members: none housing: house current occupational exposures/hazards: No ROS Obtained: Yes All systems reviewed & no additional complaints except as documented Constitutional Constitutional: Denies chills and Denies fever(s) Eyes Eyes: Denies eye discharge ENT Ears, Nose, Mouth, and Throat: Denies dizziness, Denies otalgia and Denies sore throat Cardiovascular Cardiovascular: Denies chest pain Respiratory Respiratory: Denies shortness of breath, Denies chest congestion, Denies cough, Denies stridor and Denies wheezing Gastrointestinal Gastrointestingal: Denies nausea or vomiting Musculoskeletal Musculoskeletal: Reports system reviewed and no additional complaints, except as documented and Denies arthralgias Integumentary/Breasts Skin/Breast: Denies rash Neurologic Neurologic: Reports as per HPI, Denies dizziness, Denies paresthesias and Reports radicular pain Allergic/Immunologic Allergic/Immunologic: Denies wheezing Physical Exam General General appearance: alert and in no apparent distress Head Head exam: atraumatic, normocephalic and normal inspection Eye Eye exam: Present normal appearance, PERRL and EOMI ENT ENT exam: Present normal exam, normal oropharynx, mucous membranes moist, TM's normal bilaterally and normal external ear exam Neck Neck exam: Present normal inspection, full ROM and trachea midline; Absent meningismus or lymphadenopathy Chest Chest inspection: Present normal inspection and symmetric chest wall rise; Absent tenderness Respiratory Respiratory exam: Present normal lung sounds bilaterally; Absent respiratory distress Cardiovascular Cardiovascular exam: Present regular rate and normal rhythm; Absent JVD Abdominal Exam Abdominal exam: Present soft and normal bowel sounds; Absent distention, tenderness or guarding Extremities Exam Extremities exam: Present normal inspection, full ROM and normal capillary refill; Absent calf tenderness Back Exam Back exam: Present normal inspection; Absent tenderness Neurological Exam Neurological exam: Present alert, oriented X3, CN II-XII intact, normal gait and reflexes normal; Absent motor sensory deficit Expanded Neurological Exam Speech: Present fluid speech Cranial nerves: Normal: EOM function (II, III, IV, ), facial sensation (V), facial palsy (VII), gag reflex (IX), spinal accessory function (XI) and tongue deviation (XII) Cerebellar function: normal gait Motor strength - LUE: 5/5 Motor strength - RUE: 5/5 Motor strength - LLE: 5/5 Motor strength - RLE: 5/5 Sensory exam upper extremity: Normal: light touch and 2 point discrimination Sensory exam lower extremity: Normal: light touch and 2 point discrimination DTR: 2+: biceps (L), biceps (R), patellar (L), patellar (R), Achilles tendon (L) and Achilles tendon (R) Spinal cord function: Absent saddle anesthesia Psychiatric Psychiatric exam: Present normal affect and normal mood Skin Skin exam: Present warm, dry, intact and normal color Lymphatic Lymphatic Findings: no adenopathy Medical Decision Making Medical Records Medical records reviewed: No I reviewed the patient's medical records. Eliel Inquiry Pt receiving controlled substance: No Vital Signs: 03/09/24 15:50 Temperature 97.9 F Temperature Source Oral Pulse Rate [Right Radial] 67 Respiratory Rate 18 Blood Pressure [Right Arm] 143/86 H Blood Pressure Mean [Right Arm] 105 Blood Pressure Source [Right Arm] Automatic Cuff Blood Pressure Position [Right Arm] Sitting 02 Sat by Pulse Oximetry 95 Oxygen Delivery Method Room Air Orders (Tests/Meds): ED MEDICATIONS Discontinued Medications Generic Name Dose Route Start Last Admin Trade Name Freq PRN Reason Stop Dose Admin Dexamethasone Sodium Phosphate 8 mg 03/09/24 16:19 03/09/24 16:25 Dexamethasone 4mg/Ml 1ml Vial IM 03/09/24 16:20 8 mg ONCE ONE Administration Ketorolac Tromethamine 60 mg 03/09/24 16:19 03/09/24 16:25 Ketorolac 60mg/2ml Vial IM 03/09/24 16:20 60 mg ONCE ONE Administration
[2024-03-09 16:53] VITALS: BP 143/86; PULSE 67; RESP 18; TEMP 36.6; O2SAT 95
== END 2024-03-09 16:53 | disposition home or self-care (01) ==
PROVIDERS: Emergency Provider Nurse Practitioner Family; PCP Family Medicine
DX: M54.50 Low back pain, unspecified (principal); G89.29 Other chronic pain
CPT/HCPCS: 96372; 99212; 99214; G0463; J1100; J1885

== ENCOUNTER 2024-05-18 15:27 | Outpatient (CLI) | payer MEDICARE, BC, SELFPAY ==
[2024-05-18 16:04] LABS: Basophils % 0.6 % (0.1-2.0); Eosinophils % 0.6 % (0.1-12.0); Hematocrit 40.8 % (42.0-52.0); Hemoglobin 12.6 g/dL (14.1-18.0); Lymphocytes # 1.9 K/mm3 (0.7-4.5); Lymphocytes % 29.9 % (10-50); Mean Corpuscular HGB Conc 30.9 g/dL (31.8-35.4); Mean Corpuscular Hemoglobin 29.7 pg (27.0-31.2); Mean Corpuscular Volume 96.1 fl (80-94); Mean Platelet Volume 7.7 fl (7.4-10.4); Monocytes # 0.4 K/mm3 (0.1-1.0); Monocytes % 6.8 % (1.7-9.3); Neutrophils # 3.9 K/mm3 (1.8-7.8); Neutrophils % 62.2 % (37.0-80.0); Platelet Count 253 K/mm3 (142-424); Red Blood Count 4.24 M/mm3 (4.60-6.20); Red Cell Distribution Width 15.3 % (11.5-17.5); White Blood Count 6.2 K/mm3 (4.8-10.8)
[2024-05-18 16:51] LABS: Alanine Aminotransferase 35 U/L (12-78); Albumin Level 3.7 g/dl (3.5-5.0); Alkaline Phosphatase 58 U/L (38-126); Aspartate Amino Transferase 32 U/L (17-59); Bilirubin,Direct 0.2 mg/dl (0.0-0.4); Bilirubin,Indirect 0.4 mg/dL (0.0-0.9); Bilirubin,Total 0.6 mg/dl (0.2-1.3); Bilirubin,Unconjugated 0.4 mg/dL (0.0-1.1); Blood Urea Nitrogen 16 mg/dl (9-20); Carbon Dioxide 29 mmol/L (22.0-30.0); Chloride 108 mmol/L (98-107); Chol/HDL Ratio 2.6 (1-3.5); Cholesterol 157 mg/dl (140-200); Estimated Glomerular Filt Rate 54 ml/min (>60); GFR (African American) 65 ML/MIN (>60); Glucose 111 mg/dl (74-100); HDL Cholesterol 61 mg/dl (40-60); Magnesium 1.9 mg/dl (1.6-2.3); Sodium 139 mmol/L (136-145); Total Protein,Serum 6.1 g/dl (6.3-8.2); Triglycerides 133 mg/dl (30-150); VLDL Cholesterol 27 mg/dL (0-40)
[2024-05-18 17:02] LABS: Direct LDL Cholesterol 61.56 mg/dL (100-129)
[2024-05-18 17:21] LABS: Thyroid Stimulating Hormone 2.84 uIU/mL (0.465-4.68)
== END 2024-05-18 23:59 | disposition home or self-care (01) ==
LOC: LAB 15:28
PROVIDERS: PCP Family Medicine; Visit Provider Internal Medicine
DX: Z79.899 Other long term (current) drug therapy (principal); I48.92 Unspecified atrial flutter; I50.20 Unspecified systolic (congestive) heart failure; I25.5 Ischemic cardiomyopathy; I65.23 Occlusion and stenosis of bilateral carotid arteries; I48.11 Longstanding persistent atrial fibrillation; E78.2 Mixed hyperlipidemia; I10 Essential (primary) hypertension; R94.31 Abnormal electrocardiogram [ECG] [EKG]; I25.10 Atherosclerotic heart disease of native coronary artery without angina pectoris
CPT/HCPCS: 36415; 80048; 80061; 80076; 83735; 84439; 84443; 85025

== ENCOUNTER 2024-05-27 14:00 | Outpatient (CLI) | payer MEDICARE, BC, SELFPAY ==
[2024-05-27 14:08] VITALS: BMI 29.4
--- NOTE | 2024-05-27 14:22 | PC.NURSE ---
labs drawn by Moses Martinez from lab. no charge necessary.
[2024-05-27 14:31] LABS: Reticulocyte % (Auto) 2.4 % (0.9-3.2)
[2024-05-27 15:19] LABS: Iron 50 ug/dL (49-181)
[2024-05-27 15:29] LABS: Total Iron Binding Capacity 392 ug/dL (261-462)
[2024-05-27 15:54] LABS: Ferritin 9.94 ng/ml (17.9-464)
[2024-05-27 16:24] LABS: Lactate Dehydrogenase 166 U/L (313-618)
[2024-05-27 17:32] LABS: Folate 6.66 ng/mL; Vitamin B12 296 pg/mL (239-931)
[2024-05-28 12:14] LABS: Haptoglobin 131 mg/dL (34-355)
== END 2024-05-27 14:24 | disposition home or self-care (01) ==
LOC: LAB 14:02 → INF 14:05
PROVIDERS: PCP Family Medicine; Visit Provider Internal Medicine Medical Oncology
DX: D64.9 Anemia, unspecified (principal)
CPT/HCPCS: 82607; 82728; 82746; 83010; 83540; 83550; 83615; 85044; 86880

== ENCOUNTER 2024-06-25 08:51 | Outpatient (CLI) | payer MEDICARE, BC, SELFPAY ==
--- NOTE | 2024-06-25 08:58 | CA_ITS ---
FINAL REPORT TECHNIQUE: Color Doppler, duplex Doppler and weinstein scale sonography of the bilateral neck vasculature was performed. Velocities were measured in the carotid arteries. Stenosis evaluation based on velocity criteria. CLINICAL HISTORY: MALLORIE,HTN,SMOKER,KNOWN RT ICA OCCLUSION,DIZZINESS COMPARISON: 02/02/2024 FINDINGS: The peak systolic velocity of the right common carotid artery is 83 cm/sec. No definite flow is visualized in the right internal carotid artery, occlusion versus slow flow. The ICA/CCA ratio is not calculated without flow in the internal carotid artery. Visually, a moderate amount of plaque is seen. These findings are consistent with occlusion or slow flow. The external carotid artery is patent. The right vertebral artery is patent with antegrade flow. The peak systolic velocity of the left common carotid artery is 88 cm/sec and internal carotid artery 176 cm/sec. The diastolic velocity in the internal carotid artery is 51 cm/sec. The ICA/CCA ratio is 2. Visually, a moderate amount of plaque is seen. These findings are consistent with less than 50% stenosis. The external carotid artery is patent. The left vertebral artery is patent with antegrade flow. IMPRESSION: There is either slow flow versus occlusion of the right internal carotid artery. Correlation with CT angiography versus catheter arteriography would differentiate if clinically indicated. Less than 50% stenosis of the left carotid artery, with moderate plaque. Bilateral patent vertebral arteries. Reviewed, Interpreted and Dictated by Ashish Harvey III, MD Transcribed by Poly Love Authenticated and [facility]
[2024-06-25 09:09] LABS: Basophils % 0.7 % (0.1-2.0); Eosinophils # 0.1 K/mm3 (0.0-0.4); Eosinophils % 1.2 % (0.1-12.0); Hemoglobin 13.6 g/dL (14.1-18.0); Lymphocytes # 1.4 K/mm3 (0.7-4.5); Lymphocytes % 24.4 % (10-50); Mean Corpuscular HGB Conc 32.4 g/dL (31.8-35.4); Mean Corpuscular Hemoglobin 30.6 pg (27.0-31.2); Mean Corpuscular Volume 94.4 fl (80-94); Mean Platelet Volume 7.1 fl (7.4-10.4); Monocytes # 0.5 K/mm3 (0.1-1.0); Monocytes % 7.7 % (1.7-9.3); Neutrophils # 3.8 K/mm3 (1.8-7.8); Platelet Count 214 K/mm3 (142-424); Red Blood Count 4.45 M/mm3 (4.60-6.20); Red Cell Distribution Width 16.7 % (11.5-17.5); White Blood Count 5.8 K/mm3 (4.8-10.8)
[2024-06-25 09:19] LABS: Chloride 104 mmol/L (98-107); Potassium 4.5 mmoL/L (3.5-5.1); Sodium 138 mmol/L (136-145)
[2024-06-25 09:23] LABS: Anion Gap 6.5 mEq/L (5-15); Calcium 9.1 mg/dl (8.4-10.2); Carbon Dioxide 32 mmol/L (22.0-30.0); Glucose 129 mg/dl (74-100)
[2024-06-25 09:27] LABS: Blood Urea Nitrogen 15 mg/dl (9-20); Estimated Glomerular Filt Rate 72 ml/min (>60); GFR (African American) 88 ML/MIN (>60)
--- NOTE | 2024-06-25 09:31 | MR_ITS ---
APPROVED REPORT Adjustment Supervisor: CLINICAL INDICATION HFrEF on TTE (02/2024) TECHNIQUE Image Acquisition: Cardiac magnetic resonance (CMR) was performed on Siemens Espree MRI 1.5T scanner. Software platform sequences were performed using the Siemens Purple Blue Bo MR B19 platform. A set of three-plane, low-resolution, large [id number] localizers were initially acquired. Then axial, coronal, sagittal TrueFISP, as well as axial HASTE images, were obtained. These were followed by gated TrueFISP breathold cinematic sequences obtained in the short axis with 8 mm slices and 2 mm gaps, 2-chamber (vertical long axis), 3-chamber, 4-chamber (horizontal long axis). A bolus of contrast was injected intravenously with first-pass sequences obtained in the short axis and four-chamber planes. After approximately 10 minutes, a TI chain saw mechanic sequence was performed to determine the optimal TI time. Using the optimized TI time, delayed contrast enhancement segmented inversion???recovery TurboFLASH sequences were obtained in the short axis, 2-chamber, 3-chamber, and 4-chamber projections. 2D-velocity phase mapping was performed. Functional parameters were calculated by offline analysis on an independent workstation ([employer], [employer]). Contrast: ProHance??? (Gadoteridol) FINDINGS MORPHOLOGY AND FUNCTION Left ventricle: The left ventricle is normal in size. The indexed left ventricular end-diastolic volume (LVEDVi) is 64 ml/m2 (reference range 57-105 ml/m2 in males, 56-96 ml/m2 in females). Normal left ventricular systolic function is present. There is normal left ventricular wall thickness. There are no regional wall motion abnormalities noted. LVEF is calculated at 59.7% (reference range 57-77%). Right ventricle: The right ventricle is normal in size. The indexed right ventricular end-diastolic volume (RVEDVi) is 76 ml/m2 (reference range 61-121 ml/m2 in males, 48-112 ml/m2 in females). Low-normal right ventricular systolic function is present. RVEF is calculated at 50.0% (reference range 52-72% in males, 51-71% in females). Atria: The left atrium is dilated. The maximum indexed left atrial volume is 67 ml/m2 (reference range 26-52 ml/m2 in males, 27-53 ml/m2 in females). The right atrium is normal in size. The maximum indexed right atrial volume is 43 ml/m2 (reference range 18-90 ml/m2). Aorta: The diameter of the aortic annulus is normal, measuring 25 mm (coronal view reference range 21-30 mm in males, 19-27 mm in females). The diameter of the aortic sinus is normal, measuring 36 mm (coronal view reference range 25-42 mm in males, 24-36 mm in females). The diameter of the sinotubular junction is normal, measuring 29 mm (coronal view reference range 18-32 mm in males, 18-28 mm in females). The diameters of the ascending and descending thoracic aorta are normal. Main pulmonary artery: The main pulmonary artery diameter is normal. Pericardium: The pericardial thickness is normal. The pericardial thickness measures 2.0 mm (normal < 4.0 mm). There is no pericardial effusion. VALVES The valvular morphologies in the visualized sequences appear normal. There is no significant valvular stenosis or regurgitation of the mitral, aortic, tricuspid, or pulmonic valve noted visually. Systolic anterior motion of the mitral valve is not visualized. Ratio of pulmonary to systemic flow, Qp:Qs ratio, cannot be calculated due to technical errors during image acquisition. TISSUE CHARACTERIZATION Resting Perfusion: Normal myocardial blood flow at rest. No evidence of resting hypoperfusion. Myocardial Fibrosis and/or edema: Normal gadolinium kinetics are present. No evidence of late gadolinium enhancement is noted, consistent with absence of myocardial scarring, infarction, or necrosis. T2-weighted imaging demonstrates no evidence of myocardial edema or inflammation. OTHER No other significant findings are noted. However, this exam is focused on the cardiac structure and function. IMPRESSION Normal LV size with normal LV systolic function. LVEDVi= 64 ml/m2 and LVEF= 59.7%. Normal RV size with low-normal RV systolic function. RVEDVi= 76 ml/m2 and RVEF= 50.0%. LA dilation No CMR evidence of myocardial scarring, infarction, or necrosis. No evidence of myocardial edema or inflammation. Perfusion analysis demonstrates normal blood flow at rest with no evidence of resting hypoperfusion. Overall, this CMR demonstrates normal biventricular size and systolic function. In the setting of recent reduced LVEF on TTE, the normal LV systolic function on CMR may represent recovery of systolic function with GDMT. No evidence of tissue scarring, prior infarction, or active inflammation. COMPARISON None CRITICAL RESULT None COMMUNICATION Per this written report The findings of this cardiac MR were reviewed, reported, and signed by Jay Sterling MD (Psychiatric Attendant). Conclusion Electronically signed by : Pratibha Sterling MD 06/28/2024 22:59:46
[2024-06-25] MEDS: SODIUM CHLORIDE 0.9% 10ML SYR (RAD ONLY) 10 ML IV (11:22)
[2024-06-25] MEDS: 0.9 % SODIUM CHLORIDE 50 ML VIAL 25 ML IV (11:22)
[2024-06-25] MEDS: GADOTERIDOL INJ 20ML SYRINGE 20 ML IV (11:22)
== END 2024-06-25 23:59 | disposition home or self-care (01) ==
LOC: RT 08:52
PROVIDERS: PCP Family Medicine; Visit Provider Internal Medicine
DX: I25.5 Ischemic cardiomyopathy (principal); I65.23 Occlusion and stenosis of bilateral carotid arteries
CPT/HCPCS: 36415; 75561; 80048; 85025; 93880; A9576

== ENCOUNTER 2024-07-29 07:57 | Day surgery (SDC) | payer MEDICARE, BC, SELFPAY ==
[2024-07-27 16:21] VITALS: BMI 28.5
[2024-07-29] MEDS: LACTATED RINGERS 1000ML 1,000 ML 25 ML IV (08:10)
[2024-07-29 08:15] VITALS: BP 203/119; PULSE 89; RESP 18; TEMP 36.2; O2SAT 97
--- NOTE | 2024-07-29 08:18 | P.PNANES_ITS ---
[facility] Disclaimer: The information contained in this section may have been updated after the patient was seen, as this information can be updated by other users. Medical History History of cardioversion HFrEF (heart failure with reduced ejection fraction) On amiodarone therapy Major depressive disorder Atypical angina COPD (chronic obstructive pulmonary disease) Dyspnea Fatigue Daytime somnolence Bilateral carotid artery stenosis Tobacco dependence syndrome Atrial fibrillation with RVR Atrial fibrillation HLD (hyperlipidemia) HTN (hypertension) Abnormal electrocardiography CAD (coronary artery disease) Surgical History History of banding of hemorrhoid History of colonoscopy History of esophagogastroduodenoscopy (EGD) History of cardiac radiofrequency ablation Family History Other Family history of cancer Family history of diabetes mellitus Social History Smoking Status: Never smoker alcohol intake: never substance use type: denies use current occupational status: unemployed and retired Travel in the last 8 weeks: Inside the [place] household members: none housing: house current occupational exposures/hazards: No [facility] Anesthesia Checklist Patient Identification Patient Identification: Arm Band and Verbal (Name & ) Structural Data Admitted From: Home Planned Operative Procedure/s: EGD/Colonoscopy Consent for Planned Operative Procedure(s) Verified: Yes Verified Documents: Surgical Consent and History and Physical NPO Status Verified Time NPO: 06:00 Chart Verification Results Verified: CBC, BMP and ECG Additional verifications Patient : No Anesthesia Reactions: No Blood Transfusion Reaction: No Cardiovascular Assessment Heart Sounds: S1 & S2 Pulse Rhythm: Irregular Peripheral Edema: No Airway Assessment Mallampati Score:: Class I C-Spine Mobility Assessed: Yes (Limited extension) TMJ Mobility Assessed: Yes Dentition: Edentulous Neurological Assessment Level of Consciousness: Awake, Alert, Appropriate and Follows Commands Hx Seizures: No Numbness or tingling in extremities: No Anesthesia Plan Anesthesia Risk discussed: Yes Anesthesia Plan: Verified ASA Class: III Anesthesia Type: MAC
[2024-07-29 09:26] VITALS: O2SAT 98
--- NOTE | 2024-07-29 09:44 | P.HP_ITS ---
History of Present Illness *Admission Date: 07/29/24 *Reason for visit:: Iron deficiency anemia *History of present illness: Mr. Hsu is a 78-year-old gentleman who is here for panendoscopy diagnostic secondary to iron deficiency anemia. The examination is deemed medically necessary for panendoscopy. The patient has been on Xarelto and baby aspirin for atrial fibrillation. The patient has been seen, interviewed and examined prior to the procedure by both myself and the anesthesia provider. [facility] Disclaimer: The information contained in this section may have been updated after the patient was seen, as this information can be updated by other users. Medical History (Updated 07/29/24 @ 09:45 by Walker Navarro II, MD) History of cardioversion HFrEF (heart failure with reduced ejection fraction) On amiodarone therapy Major depressive disorder Atypical angina COPD (chronic obstructive pulmonary disease) Dyspnea Fatigue Daytime somnolence Bilateral carotid artery stenosis Tobacco dependence syndrome Atrial fibrillation with RVR Atrial fibrillation HLD (hyperlipidemia) HTN (hypertension) Abnormal electrocardiography CAD (coronary artery disease) Surgical History History of banding of hemorrhoid History of colonoscopy History of esophagogastroduodenoscopy (EGD) History of cardiac radiofrequency ablation Family History Other Family history of cancer Family history of diabetes mellitus Social History Smoking Status: Never smoker alcohol intake: never substance use type: denies use current occupational status: unemployed and retired Travel in the last 8 weeks: Inside the [place] household members: none housing: house current occupational exposures/hazards: No Other Medical History Have you received the Flu Vaccine for this season: Yes Have you received the Pneumonia Vaccine: Yes Review of Systems Review of Systems Review of systems (narrative): Negative *Cardiovascular Comments: Negative *Gastrointestinal Comments: Negative *Genitourinary Comments: Negative *Musculoskeletal Comments: Negative *Neurologic Comments: Negative Meds Home Medications and Allergies Home Medications ?Medication ?Instructions ?Recorded ?Confirmed ?Type omega-3 acid ethyl esters 1 gram 1 g PO BID Supplement 10/14/17 07/27/24 History capsule (Lovaza) cholecalciferol (vitamin D3) 10 400 units PO DAILY Supplement 05/09/21 07/27/24 History mcg (400 unit) capsule diazepam 5 mg tablet 5 mg PO TIDP PRN Anxiety 05/09/21 07/27/24 History psyllium husk 0.4 gram capsule 0.4 g PO DAILY constipation 05/09/21 07/27/24 History (Daily Fiber) tamsulosin 0.4 mg capsule 0.4 mg PO HS prostate problems 05/09/21 07/27/24 History oxycodone-acetaminophen 5 mg-325 1 tab PO ONCE Pain 07/18/21 07/27/24 History mg tablet pantoprazole 40 mg tablet,delayed 40 mg PO DAILY gerd 08/29/21 07/27/24 History release duloxetine 60 mg capsule,delayed 60 mg PO DAILY mood 02/27/22 07/27/24 History release nitroglycerin 0.4 mg sublingual 0.4 mg sublingual Q5M PRN chest 05/02/22 07/27/24 Rx tablet (Nitrostat) pain #20 tabs albuterol sulfate 90 mcg/actuation 2 inh inhalation Q8H PRN shortness 10/21/22 07/27/24 Rx aerosol inhaler of breath or wheezing #8.5 grams atorvastatin 10 mg tablet 10 mg PO DAILY Cholesterol 05/28/23 07/27/24 History ranolazine 1,000 mg See Rx Instructions .Route 10/13/23 07/27/24 Rx tablet,extended release,12 hr .COMPLEX #180 tabs empagliflozin 10 mg tablet 10 mg PO DAILY 03/09/24 07/27/24 History (Jardiance) amiodarone 200 mg tablet 200 mg PO DAILY #30 tabs 04/15/24 07/27/24 Rx aspirin 81 mg tablet,delayed 81 mg PO DAILY #30 tabs 06/28/24 07/27/24 Rx release (Adult Aspirin Regimen) metoprolol succinate 25 mg 6.25 mg PO DAILY 06/28/24 07/27/24 History tablet,extended release 24 hr (Toprol XL) rivaroxaban 15 mg tablet 15 mg PO DAILY Blood thinner #30 06/28/24 07/27/24 Rx tabs New Prescriptions to Start Prescriptions: Allergies Allergy/AdvReac Type Severity Reaction Status Date / Time Sulfa (Sulfonamide Allergy Unknown Verified 10/14/24 13:40 Antibiotics) Exam Data for Last 24 hours Vital signs and Labs for Last 24 Hours: Temp Pulse Resp BP Pulse Ox O2 Del Method O2 Flow Rate 97.2 F L 89 18 203/119 H 97 Nasal Cannula 5 07/29/24 08:15 07/29/24 08:15 07/29/24 08:15 07/29/24 08:15 07/29/24 08:15 07/29/24 09:26 07/29/24 09:26 I & O for Last 24 hours: Intake & Output 07/26/24 07/27/24 07/28/24 07/29/24 23:59 23:59 23:59 23:59 Weight 205 lb *Routine HEENT Exam Head: Present normocephalic Eye: Present EOMI and PERRL ENT: Present mucous membranes moist *Routine Neck Exam Neck: Present supple *Routine Respiratory Exam Respiratory: Present CTA bilaterally *Routine Cardiovascular Exam Cardiovascular: Present RRR *Routine Abdominal Exam Abdominal: Present soft and normoactive bowel sounds; Absent tenderness *Routine Rectal Exam Rectal:: deferred *Routine Genitalia Exam Genitalia:: deferred *Routine Extremities Exam Extremities: Absent cyanosis, clubbing or edema *Routine Skin Exam Skin: Present warm; Absent rash *Routine Neurological Exam Neurological: Present alert and oriented X3 Assessment and Plan *Assessment and plan (1) Iron deficiency anemia: Status: Acute Category: Medical Code(s): D50.9 - Iron deficiency anemia, unspecified (2) Personal history of colon polyps, unspecified: Status: Acute Category: Medical Code(s): Z86.0100 - Personal history of colon polyps, unspecified (3) Bilateral lower abdominal discomfort: Status: Acute Category: Medical Code(s): R10.31 - Right lower quadrant pain; R10.32 - Left lower quadrant pain Plan A/P: 1. Iron deficiency anemia and lower abdominal discomfort is the preprocedural diagnosis. The patient will be anesthetized/sedated using MAC sedation. The patient has been seen and examined. Cardiac and lung assessment prior to the examination is stable. Proceed with planned panendoscopy
--- NOTE | 2024-07-29 09:52 | P.PCN_ITS ---
[facility] Procedure Note Date: 07/29/24 Time: 09:52 Procedure Note:: Upper Endoscopy Procedure Report: Esophagogastroduodenoscopy with cold biopsy Endoscopost: Walker Navarro II, MD Referring Physician: Yovani Marx MD/Cheko Heredia MD Date of Procedure: July 29, 2024 Equipment: Olympus GIF 190 standard upper endoscope Sedation: MAC sedation Indications: Mr. Hsu is a 78-year-old gentleman who had recently seen Dr. Yovani Marx for anemia with iron deficiency. His hemoglobin in June 2021 was 13.8. His most recent hemoglobin and hematocrit were 13.6 and 42.0 (relatively unchanged). His iron studies in May 2024 showed serum iron 50, ferritin 9.94 and iron saturation 12.75%. The patient is on Xarelto and baby aspirin for atrial fibrillation and cardiac disease. The patient reports no heartburn, reflux, dysphagia or dyspepsia. He does get some lower abdominal discomfort and gas sounds with gurgling. He reports no weight loss, melena or hematochezia. Panendoscopy is performed for further evaluation Procedure: Prior to the procedure, a history and physical exam was performed, and patient's medications and allergies were reviewed. The risks, benefits and alternatives of the sedation and procedure were discussed with the patient. All questions were answered and informed consent was obtained. The patient was brought to the procedure room. Patient identification and proposed procedure were verified by the physician and the nurse. The patient was placed in a left lateral decubitus position and the scope was passed under direct vision. Throughout the procedure, the patient's blood pressure, pulse, and oxygen saturations were monitored continuously. The upper GI endoscopy was accomplished without difficulty. The patient tolerated the procedure well. Findings: The scope was passed directly into the upper esophagus and advanced to the fourth portion of the duodenum. The post bulbar duodenum and duodenal bulb were normal with normal mucosa and conniventes. Cold biopsies were taken from the duodenum to rule out celiac disease. The scope was withdrawn through a normal duodenal bulb and pylorus into the stomach. There was some linear reactive gastropathy of the antrum without erosions or ulcerations. There was some bile reflux. The body and fundus of the stomach were normal. Upon retroflexion there was no hiatal hernia. The scope was then withdrawn into the esophagus. There was no evidence of reflux esophagitis or Contreras's. There were no strictures. There were no varices. The remainder of the esophageal mucosa was normal. Impression: 1. Mild linear reactive gastropathy Plan: There was no etiology for his iron deficiency. I will proceed with colonoscopy for further evaluation. I will follow-up the biopsies.
--- NOTE | 2024-07-29 10:18 | [facility]H.PROCNOTE ---
[facility] Procedure Note Date: 07/29/24 Time: 10:19 Procedure Note:: Colonoscopy Procedure Report: Colonoscopy with cold snare polypectomy and Endo Clip placement Endoscopist: Walker Navarro II, MD Referring physician: Yovani Marx MD/Cheko Heredia MD Date of Procedure: July 29, 2024 Equipment: Olympus 190 variable stiffness pediatric colonoscope Sedation: MAC sedation Indication: Mr. Hsu is a 78-year-old gentleman who had recently seen Dr. Yovani Marx for anemia with iron deficiency. His hemoglobin in June 2021 was 13.8. His most recent hemoglobin and hematocrit were 13.6 and 42.0 (relatively unchanged). His iron studies in May 2024 showed serum iron 50, ferritin 9.94 and iron saturation 12.75%. The patient is on Xarelto and baby aspirin for atrial fibrillation and cardiac disease. The patient reports no heartburn, reflux, dysphagia or dyspepsia. He does get some lower abdominal discomfort and gas sounds with gurgling. He reports no weight loss, melena or hematochezia. Panendoscopy is performed for further evaluation. The patient did have a colonoscopy in April 2020 and had 4 polyps removed (tubular adenomas x 3/hyperplastic polyp x 1). He had hemorrhoid banding at that time. Procedure: Prior to the procedure, a history and physical exam was performed, and patient's medications and allergies were reviewed. The risks, benefits and alternatives of the sedation and procedure were discussed with the patient. All questions were answered and informed consent was obtained. The patient was brought to the procedure room. Patient identification and proposed procedure were verified by the physician and the nurse. The patient was placed in a left lateral decubitus position and the scope was passed under direct vision. Throughout the procedure, the patient's blood pressure, pulse, and oxygen saturations were monitored continuously. The colonoscopy was accomplished without difficulty. The patient tolerated the procedure well. Findings: On digital rectal examination there was normal rectal tone. There were no external hemorrhoids. The colonoscope was introduced through the anal canal to the rectum and advanced to the cecum. The ileocecal valve and appendiceal orifice were identified. The scope was advanced a short distance into the ileum which appeared grossly normal. The scope was then withdrawn into the colon. There were 8 colon polyps (ascending x 1 (5 mm), transverse x 3 (4, 5 and 15 mm), descending x 3 (5, 5 and 13 mm) and rectum x 1 (4 mm)). These were all removed via cold snare polypectomy. The polypectomy site in the transverse colon of the 15 mm polyp was closed with 2 endoclips to provide hemostasis. The cecum, ascending and transverse colon and mucosa were grossly normal. There were scattered diverticuli throughout the descending and sigmoid colon (LEFT colon). The rectum itself was normal. Upon retroflexion within the rectum there were 2 internal hemorrhoids. The preparation was excellent throughout with [place] Preparation Score of 9. The cecal time was 15 minutes. Impression: 1. Colonic polyps x 8 (ranging in size from 4 to 15 mm) 2. Left-sided diverticulosis 3. Grade 2 internal hemorrhoids with evidence of prior hemorrhoid procedure (fibrosis from banding) Plan: I will follow-up the polyp histology. Based on the number and size of adenomatous polyps, we will need to consider repeat surveillance but must look at comorbidities and value. I will follow-up the pathology. There is no etiology for the patient's iron deficiency. He only has borderline anemia. I would continue to oral iron supplementation as long as he remains on Xarelto. Certainly if he develops any further chronic GI blood loss, I would consider the Watchman procedure. The Watchman Left Atrial Appendage Closure provides a new option for patients with non-valvular atrial fibrillation who may require an alternative to long-term use of blood thinners. This is especially important in persons that have chronic gastrointestinal blood loss with resulting iron deficiency anemia that is greatly exacerbated by the use of blood thinners (anticoagulation).
[2024-07-29 10:22] VITALS: BP 146/67; PULSE 67; RESP 16; TEMP 36.3; O2SAT 93
[2024-07-29 10:32] VITALS: BP 175/82; PULSE 68; RESP 16; O2SAT 96
[2024-07-29 10:42] VITALS: BP 185/109; PULSE 68; RESP 18; O2SAT 99
[2024-07-29 10:52] VITALS: BP 193/100; PULSE 67; RESP 18; O2SAT 99
[2024-07-29 22:01] LABS: POC Glucose,Bedside 104 (70-110)
== END 2024-07-29 11:15 | disposition home or self-care (01) ==
PROVIDERS: PCP Family Medicine; Visit Provider Internal Medicine Gastroenterology
PROC: 0DJ08ZZ Inspection of Upper Intestinal Tract, Via Natural or Artificial Opening Endoscopic (ICD-10-PCS; CPT 43235; principal; 2024-07-29 09:30)
DX: D50.9 Iron deficiency anemia, unspecified (principal); Z86.0100 Personal history of colon polyps, unspecified; R10.31 Right lower quadrant pain; R10.32 Left lower quadrant pain; Z79.84 Long term (current) use of oral hypoglycemic drugs; K31.9 Disease of stomach and duodenum, unspecified; K63.5 Polyp of colon; K57.30 Diverticulosis of large intestine without perforation or abscess without bleeding; K64.1 Second degree hemorrhoids
CPT/HCPCS: 43239; 45385; 82962; 88305; J7120

== ENCOUNTER 2024-08-25 14:11 | Emergency (ER) | payer MEDICARE, BC, SELFPAY ==
[2024-08-25 14:30] VITALS: BP 111/64; PULSE 70; RESP 19; TEMP 36.6; O2SAT 95; BMI 32.1
--- NOTE | 2024-08-25 14:43 | EXP.UTC ---
Discharge Plan Disposition Patient Disposition: Home, Self-Care Condition: Good Prescriptions Prescriptions: No Action atorvastatin 10 mg tablet 10 mg PO HS Patient Comments: TAKE 1 TABLET BY MOUTH ONCE DAILY. amiodarone 200 mg tablet 200 mg PO DAILY Patient Comments: TAKE 1 TABLET BY MOUTH ONCE DAILY clopidogrel 75 mg tablet 75 mg PO DAILY Patient Comments: TAKE 1 TABLET BY MOUTH ONCE DAILY. oxycodone-acetaminophen 5-325 mg tablet 1 tab PO Q8HP PRN (Reason: Pain) Patient Comments: TAKE 1 TABLET BY MOUTH EVERY 8 HOURS NEEDED FOR SEVERE PAIN. tamsulosin 0.4 mg capsule 0.4 mg PO HS Patient Comments: TAKE ONE CAPSULE BY MOUTH EVERY NIGHT AT BEDTIME pantoprazole 40 mg tablet,delayed release (DR/EC) 40 mg PO DAILY Patient Comments: TAKE 1 TABLET BY MOUTH ONCE DAILY. metoprolol succinate 25 mg tablet extended release 24 hr 25 mg PO DAILY Patient Comments: TAKE 1 TABLET BY MOUTH ONCE DAILY. albuterol sulfate 90 mcg/actuation HFA aerosol inhaler 2 puff INHALATION Q4HP PRN (Reason: SOA) Patient Comments: INHALE 2 PUFFS INTO THE LUNGS EVERY 4 HOURS NEEDED FOR WHEEZING. diazepam 5 mg tablet 5 mg PO Q12HP PRN (Reason: Anxiety) Patient Comments: TAKE 1 TABLET BY MOUTH EVERY 12 HOURS NEEDED FOR ANXIETY. duloxetine 60 mg capsule,delayed release(DR/EC) 60 mg PO DAILY Patient Comments: TAKE 1 CAPSULE BY MOUTH ONCE DAILY. ranolazine 1,000 mg tablet extended release 12 hr 1,000 mg PO BID Patient Comments: TAKE 1 TABLET BY MOUTH TWICE DAILY. Xarelto 15 mg tablet 15 mg PO DAILY Jardiance 10 mg tablet 10 mg PO DAILY Patient Comments: TAKE 1 TABLET BY MOUTH ONCE DAILY. Referrals Follow up/Referrals: Cheko Heredia MD [Primary Care Provider] - See instructions Activity Restrictions/Add. Instructions Additional Instructions/Restrictions: Follow up with your Family Doctor if pain continues Return if needed Straight to ER if any life threatening symptoms Clinical Impressions Clinical Impression: Back pain Qualifiers: Back pain location: low back pain Chronicity: unspecified Back pain laterality: unspecified Sciatica presence: without sciatica Qualified Code(s): M54.50 - Low back pain, unspecified Instructions Patient Instructions: Low Back Pain Print Language Print Language: Monegasque Discharge ED Provider: Rosana Hancock [facility] HPI General Stated complaint: back pain Mode of Arrival: Ambulatory Source of Information: Patient Limitations: No Limitations Time Seen by Provider: 08/25/24 14:45 Description of Symptoms (Recalled from Triage Doc. by RN): PATIENT C/O LOWER BACK PAIN THAT STARTED 3 DAYS AGO, NO KNOWN INJURY. PATIENT REPORTS A HISTORY OF CHRONIC LOWER BACK PAIN HEENT Symptoms (Recalled from RN notes): No Resp Symptoms (Recalled from RN notes): No Skin Symptoms (Recalled from RN notes): No MS Symptoms (Recalled from RN notes): Yes Functional Status (Recalled from RN notes): WNL History of Present Illness Provider Complaint: Patient states that he has a hx of chronic low back pain States that at times it flares up and starts hurting States about 3 days ago he started having pain in his lower back and he thought it would get better but hasnt so he came in wanting to get shots to help denies loss of control of bowel or bladder Related Data Home Medications ?Medication ?Instructions ?Recorded ?Confirmed albuterol sulfate 90 mcg/actuation 2 puff inhalation Q4HP PRN SOA 08/25/24 08/25/24 aerosol inhaler amiodarone 200 mg tablet 200 mg PO DAILY 08/25/24 08/25/24 atorvastatin 10 mg tablet 10 mg PO HS 08/25/24 08/25/24 clopidogrel 75 mg tablet 75 mg PO DAILY 08/25/24 08/25/24 diazepam 5 mg tablet 5 mg PO Q12HP PRN Anxiety 08/25/24 08/25/24 duloxetine 60 mg capsule,delayed 60 mg PO DAILY 08/25/24 08/25/24 release empagliflozin 10 mg tablet 10 mg PO DAILY 08/25/24 08/25/24 (Jardiance) metoprolol succinate 25 mg 25 mg PO DAILY 08/25/24 08/25/24 tablet,extended release 24 hr oxycodone-acetaminophen 5 mg-325 1 tab PO Q8HP PRN Pain 08/25/24 08/25/24 mg tablet pantoprazole 40 mg tablet,delayed 40 mg PO DAILY 08/25/24 08/25/24 release ranolazine 1,000 mg 1,000 mg PO BID 08/25/24 08/25/24 tablet,extended release,12 hr rivaroxaban 15 mg tablet (Xarelto) 15 mg PO DAILY 08/25/24 08/25/24 tamsulosin 0.4 mg capsule 0.4 mg PO HS 08/25/24 08/25/24 Allergies Allergy/AdvReac Type Severity Reaction Status Date / Time Sulfa (Sulfonamide Allergy Unknown Verified 06/28/24 13:40 Antibiotics) Worker's Comp Is this a Worker's Comp case?: No [facility] Disclaimer: The information contained in this section may have been updated after the patient was seen, as this information can be updated by other users. Medical History (Updated 08/25/24 @ 14:54 by Rosana Hancock APRN) History of cardioversion HFrEF (heart failure with reduced ejection fraction) On amiodarone therapy Major depressive disorder Atypical angina COPD (chronic obstructive pulmonary disease) Dyspnea Fatigue Daytime somnolence Bilateral carotid artery stenosis Tobacco dependence syndrome Atrial fibrillation with RVR Atrial fibrillation HLD (hyperlipidemia) HTN (hypertension) Abnormal electrocardiography CAD (coronary artery disease) Surgical History History of banding of hemorrhoid History of colonoscopy History of esophagogastroduodenoscopy (EGD) History of cardiac radiofrequency ablation Family History Other Family history of cancer Family history of diabetes mellitus Social History Smoking Status: Never smoker alcohol intake: never substance use type: denies use current occupational status: unemployed and retired Travel in the last 8 weeks: [place] the [place] household members: none housing: house current occupational exposures/hazards: No ROS Obtained: Yes All systems reviewed & no additional complaints except as documented and Yes Systems reviewed as appropriate & no additional complaints except as documented Constitutional Constitutional: Reports system reviewed and no additional complaints, except as documented and Reports as per HPI ENT Ears, Nose, Mouth, and Throat: Reports system reviewed and no additional complaints, except as documented and Reports as per HPI Cardiovascular Cardiovascular: Reports system reviewed and no additional complaints, except as documented and Reports as per HPI Respiratory Respiratory: Reports system reviewed and no additional complaints, except as documented and Reports as per HPI Gastrointestinal Gastrointestingal: Reports system reviewed and no additional complaints, except as documented and as per HPI Genitourinary Male Genitourinary: Reports system reviewed and no additional complaints, except as documented and Reports as per HPI Musculoskeletal Musculoskeletal: Reports system reviewed and no additional complaints, except as documented, Reports as per HPI and Reports back pain (pain in lower back area worse with certain movements) Physical Exam General General appearance: alert and in no apparent distress ENT ENT exam: Present mucous membranes moist Chest Chest inspection: Present normal inspection and symmetric chest wall rise Respiratory Respiratory exam: Present normal lung sounds bilaterally; Absent respiratory distress or wheezes Cardiovascular Cardiovascular exam: Present regular rate, normal rhythm and normal heart sounds Back Exam Back exam: Present tenderness and muscle spasm; Absent CVA tenderness (R), CVA tenderness (L), sciatic notch tenderness (R) or sciatic notch tenderness (L) Back 1 view image: 1. reports achy like pain like he has when his back flares up Denies radiation of pain, denies loss of control of bowel or bladder Neurological Exam Neurological exam: Present alert, oriented X3 and normal gait Medical Decision Making Medical Records Screening: Per USPSTF and CDC recommendations, given the prevalence of disease in our region, it is our hospital?s policy to screen for HIV and viral Hepatitis for all patients aged 18 and over and those with ongoing risk factors. Eliel Inquiry Pt receiving controlled substance: No Eliel was queried for this patient: No Vital Signs: 08/25/24 14:30 Temperature 97.8 F Temperature Source Oral Pulse Rate [Left Brachial] 70 Respiratory Rate 19 Blood Pressure [Left Arm] 111/64 Blood Pressure Mean [Left Arm] 79 Blood Pressure Source [Left Arm] Automatic Cuff Blood Pressure Position [Left Arm] Sitting 02 Sat by Pulse Oximetry 95 Oxygen Delivery Method Room Air Medical Decision Narrative: Discussed xray and patient declined states that this is the typical back pain he has when it flares up, medication discussed with pharmacy
[2024-08-25] MEDS: METHYLPREDNISOLONE SOD SUCC 125MG VIAL 125 MG IM (14:51)
[2024-08-25] MEDS: KETOROLAC 30MG/ML VIAL 15 MG IM (14:51)
[2024-08-25 15:00] VITALS: BP 111/64; PULSE 70; RESP 19; TEMP 36.6; O2SAT 95
== END 2024-08-25 15:01 | disposition home or self-care (01) ==
PROVIDERS: Emergency Provider Nurse Practitioner; PCP Family Medicine
DX: M54.50 Low back pain, unspecified (principal)
CPT/HCPCS: 96372; 99212; G0381; J1885; J2919

== ENCOUNTER 2024-11-23 11:36 | Emergency (ER) | payer MEDICARE, BC, SELFPAY ==
[2024-11-23 11:40] VITALS: BP 161/87; PULSE 85; RESP 18; TEMP 36.7; O2SAT 97; BMI 27.8
--- NOTE | 2024-11-23 11:55 | ED_ITS ---
Discharge Plan Disposition Patient Disposition: Home, Self-Care Prescriptions Prescriptions: New dexamethasone 6 mg tablet 6 mg PO DAILY Qty: 5 0RF lidocaine 5 % adhesive patch,medicated 1 patch topical DAILY Qty: 30 0RF Rx Instructions: leave on most painful area for up to 12 hrs No Action metoprolol succinate 25 mg tablet extended release 24 hr 12.5 mg PO .every other day atorvastatin 10 mg tablet 10 mg PO HS Patient Comments: TAKE 1 TABLET BY MOUTH ONCE DAILY. clopidogrel 75 mg tablet 75 mg PO DAILY Patient Comments: TAKE 1 TABLET BY MOUTH ONCE DAILY. oxycodone-acetaminophen 5-325 mg tablet 1 tab PO Q8HP PRN (Reason: Pain) Patient Comments: TAKE 1 TABLET BY MOUTH EVERY 8 HOURS NEEDED FOR SEVERE PAIN. tamsulosin 0.4 mg capsule 0.4 mg PO HS Patient Comments: TAKE ONE CAPSULE BY MOUTH EVERY NIGHT AT BEDTIME pantoprazole 40 mg tablet,delayed release (DR/EC) 40 mg PO DAILY Patient Comments: TAKE 1 TABLET BY MOUTH ONCE DAILY. albuterol sulfate 90 mcg/actuation HFA aerosol inhaler 2 puff INHALATION Q4HP PRN (Reason: SOA) Patient Comments: INHALE 2 PUFFS INTO THE LUNGS EVERY 4 HOURS NEEDED FOR WHEEZING. diazepam 5 mg tablet 5 mg PO Q12HP PRN (Reason: Anxiety) Patient Comments: TAKE 1 TABLET BY MOUTH EVERY 12 HOURS NEEDED FOR ANXIETY. duloxetine 60 mg capsule,delayed release(DR/EC) 60 mg PO DAILY Patient Comments: TAKE 1 CAPSULE BY MOUTH ONCE DAILY. ranolazine 1,000 mg tablet extended release 12 hr 1,000 mg PO BID Patient Comments: TAKE 1 TABLET BY MOUTH TWICE DAILY. Xarelto 15 mg tablet 15 mg PO DAILY Jardiance 10 mg tablet 10 mg PO DAILY Patient Comments: TAKE 1 TABLET BY MOUTH ONCE DAILY. Referrals Follow up/Referrals: Cheko Heredia MD [Primary Care Provider] - See instructions Activity Restrictions/Add. Instructions Additional Instructions/Restrictions: Call your family doctor to establish care for this visit to the emergency department and schedule follow-up within 48 hours to ensure improvement. If you have any worsening of your condition or any other concerning signs or symptoms, return to the emergency department or your primary care doctor for further evaluation. Clinical Impressions Clinical Impression: Left lumbar radiculopathy Instructions Patient Instructions: DI for Low Back Pain Print Language Print Language: Nepalese Discharge ED Provider: Basim Mojica General Adult HPI General Chief complaint: Back Pain/Injury Stated complaint: Back pain Time Seen by Provider: 11/23/24 11:41 Mode of Arrival: Ambulatory Source of Information: Patient Description of Symptoms (Recalled from ER Triage Doc. by RN): Pt presents for evaluation of chronic lower back pain. Pt states pain expands across his lower back with the right side hurting more History of Present Illness HPI narrative: Please note that above description of symptoms, in this electronic medical record under categorization of recalled from ER triage doctor by RN are reflective of an initial nursing assessment, however, is not reflective of my full history and physical exam that was personally taken and clarified. Consequentially, this preceding description of symptoms, which may include the patient's categorized chief complaint in the EMR, do not reflect my personal clinical impression, and the ultimate description of history of present illness and patient stated complaints should be deferred to this section of the note. Unless stated otherwise or congruent with this section of the note, additional signs, symptoms, or incongruence should be interpreted as inaccurate with my clinical impression. Related Data Home Medications ?Medication ?Instructions ?Recorded ?Confirmed albuterol sulfate 90 mcg/actuation 2 puff inhalation Q4HP PRN SOA 08/25/24 10/06/24 aerosol inhaler atorvastatin 10 mg tablet 10 mg PO HS 08/25/24 10/06/24 clopidogrel 75 mg tablet 75 mg PO DAILY 08/25/24 10/06/24 diazepam 5 mg tablet 5 mg PO Q12HP PRN Anxiety 08/25/24 10/06/24 duloxetine 60 mg capsule,delayed 60 mg PO DAILY 08/25/24 10/06/24 release empagliflozin 10 mg tablet 10 mg PO DAILY 08/25/24 10/06/24 (Jardiance) oxycodone-acetaminophen 5 mg-325 1 tab PO Q8HP PRN Pain 08/25/24 10/06/24 mg tablet pantoprazole 40 mg tablet,delayed 40 mg PO DAILY 08/25/24 10/06/24 release ranolazine 1,000 mg 1,000 mg PO BID 08/25/24 10/06/24 tablet,extended release,12 hr rivaroxaban 15 mg tablet (Xarelto) 15 mg PO DAILY 08/25/24 10/06/24 tamsulosin 0.4 mg capsule 0.4 mg PO HS 08/25/24 10/06/24 metoprolol succinate 25 mg 12.5 mg PO .every other day 10/06/24 10/06/24 tablet,extended release 24 hr Previous Rx's ?Medication ?Instructions ?Recorded dexamethasone 6 mg tablet 6 mg PO DAILY #5 tabs 11/23/24 lidocaine 5 % topical patch 1 patch topical DAILY #30 ea 11/23/24 Allergies Allergy/AdvReac Type Severity Reaction Status Date / Time Sulfa (Sulfonamide Allergy Unknown Verified 10/06/24 14:10 Antibiotics) [facility] Disclaimer: The information contained in this section may have been updated after the patient was seen, as this information can be updated by other users. Medical History History of cardioversion HFrEF (heart failure with reduced ejection fraction) On amiodarone therapy Major depressive disorder Atypical angina COPD (chronic obstructive pulmonary disease) Dyspnea Fatigue Daytime somnolence Bilateral carotid artery stenosis Tobacco dependence syndrome Atrial fibrillation with RVR Atrial fibrillation HLD (hyperlipidemia) HTN (hypertension) Abnormal electrocardiography CAD (coronary artery disease) Surgical History History of banding of hemorrhoid History of colonoscopy History of esophagogastroduodenoscopy (EGD) History of cardiac radiofrequency ablation Family History Other Family history of cancer Family history of diabetes mellitus Social History Smoking Status: Current every day smoker tobacco type: cigarettes packs per day: 1 alcohol intake: never substance use type: denies use current occupational status: unemployed and retired Travel in the last 8 weeks: Inside the [place] household members: none housing: house current occupational exposures/hazards: No Have you lived/traveled outside [place] in past 30 days?: No Contact w/someone who lives/traveled outside [place] past 30 days?: No Exposure to someone with infectious disease in past 14 days?: No Do you have a fever (greater than 100.4 F or 38 C)?: No Have you tested positive for COVID-19: No Exposed to someone with COVID-19 in past 14 days?: No Do you have a sore throat?: No Do you have a cough?: No Do you have any weakness?: No Do you have any diarrhea?: No Are you experiencing any unusual bleeding?: No Do you have any muscle aches/pain?: No Do you have any abdominal pain?: No Are you experiencing loss of taste or smell?: No Other Medical History Have you received the Flu Vaccine for this season: Yes Have you received the Pneumonia Vaccine: Yes ROS Obtained: Yes All systems reviewed & no additional complaints except as documented Physical Exam General General appearance: alert Head Head exam: atraumatic and normocephalic Eye Eye exam: Present normal appearance, PERRL and EOMI Neck Neck exam: Present normal inspection, full ROM and trachea midline Respiratory Respiratory exam: Absent respiratory distress, wheezes, stridor, accessory muscle use or prolonged expiratory phase Cardiovascular Cardiovascular exam: Present other (Pulses equal symmetric in upper and lower extremities) Abdominal Exam Abdominal exam: Present soft; Absent distention, tenderness or pulsatile mass Extremities Exam Extremities exam: Absent edema Back Exam Back exam: Present tenderness, CVA tenderness (R) and straight leg raise (R); Absent CVA tenderness (L) or straight leg raise (L) Neurological Exam Neurological exam: Present alert, oriented X3 and CN II-XII intact; Absent motor sensory deficit Skin Skin exam: Present warm and dry; Absent diaphoresis or erythema Medical Decision Making Medical Records Medical records reviewed: Yes I reviewed the patient's medical records. Screening: Per USPSTF and CDC recommendations, given the prevalence of disease in our region, it is our hospital?s policy to screen for HIV and viral Hepatitis for all patients aged 18 and over and those with ongoing risk factors. Eliel Inquiry Pt receiving controlled substance: No Eliel was queried for this patient: No Vital Signs: 11/23/24 11:40 11/23/24 13:01 Temperature 98.0 F Temperature Source Oral Pulse Rate 74 Pulse Rate [Right] 85 Respiratory Rate 18 Blood Pressure 112/70 Blood Pressure [Right Arm] 161/87 H Blood Pressure Mean [Right Arm] 111 Blood Pressure Source [Right Arm] Automatic Cuff Blood Pressure Position [Right Arm] Sitting 02 Sat by Pulse Oximetry 97 94 L Oxygen Delivery Method Room Air Room Air Orders (Tests/Meds): ED MEDICATIONS Discontinued Medications Generic Name Dose Route Start Last Admin Trade Name Freq PRN Reason Stop Dose Admin Dexamethasone Sodium Phosphate 10 mg 03/11/25 11:55 11/23/24 12:09 Dexamethasone 4mg/Ml 1ml Vial IM 11/23/24 11:56 10 mg ONCE ONE Administration Ketorolac Tromethamine 15 mg 11/23/24 11:55 11/23/24 12:10 Ketorolac 30mg/Ml Vial IM 11/23/24 11:56 15 mg ONCE ONE Administration Medical Decision Narrative: 79-year-old male with chronic back pain presenting with acute exacerbation of lumbar spine pain. States that he usually gets 2 shots and it fixes it, from the urgent care with the urgent care was closed today due to recent changes in the system. No bowel or bladder dysfunction, made worse with straightening his right lower extremity and pointing his toes up. No weakness. History was obtained via conversation with patient. On arrival, patient hemodynamically stable, alert, oriented x4, appropriate, GCS 15, moving all extremities spontaneously, pupils equal and reactive to light. Full physical exam performed and significant for very clinically well-appearing male no acute distress. Straight leg test positive on the right, tenderness along the muscles groups on that side, but neurovascular intact. No saddle anesthesia, ambulatory. Differential includes lumbar radiculopathy, back spasm, among others. Less likely to be acute aortic pathology given no urinary complaints, no neurovascular deficits. Labs were considered, but not be necessary for these reasons, same reasons apply for CT of the lumbar spine. On reevaluation, patient states he feels much better. Given patient presentation, workup, history, this most likely represents acute lumbar radiculopathy because patient at baseline without signs or symptoms of clinical decompensation, deemed appropriate for discharge. Results were relayed to patient who voiced understanding and were agreeable to outpatient management and follow up. I discussed my clinical impression with patient and answered all questions. At this time, the evidence for any other entities in the differential is insufficient to warrant any further testing or ED observation. This was explained as well. Advisory was given that persistent or worsening symptoms require further evaluation. I confirmed the understanding of this dis cussion.. Curber disclaimer Much of this encounter note is an electronic esthetician/owner spoken language to printed text. Electronic esthetician/owner of the spoken language may permit errors. Although I have reviewed the note, some errors may still exist. Critical Care Critical Care Time Critical Care Time: No
[2024-11-23] MEDS: DEXAMETHASONE 4MG/ML 1ML VIAL 10 MG IM (12:09)
[2024-11-23] MEDS: KETOROLAC 30MG/ML VIAL 15 MG IM (12:10)
--- NOTE | 2024-11-23 12:17 | PC.NURSE ---
1215hrs- administered 15mg of ketorolac in the right gluteus kenzie and 10mg of dexamethasone in the L gluteus kenzie
[2024-11-23 13:01] VITALS: BP 112/70; PULSE 74; O2SAT 94
[2024-11-23 13:41] VITALS: BP 103/73; PULSE 74; O2SAT 93
[2024-11-23 13:44] VITALS: BP 103/73; PULSE 72; RESP 16; TEMP 36.7; O2SAT 95
== END 2024-11-23 13:45 | disposition home or self-care (01) ==
PROVIDERS: Emergency Provider Emergency Medicine; PCP Family Medicine
DX: M54.16 Radiculopathy, lumbar region (principal); M54.50 Low back pain, unspecified; F17.210 Nicotine dependence, cigarettes, uncomplicated
CPT/HCPCS: 96372; 99283; J1100; J1885

== ENCOUNTER 2025-01-04 14:35 | Outpatient (CLI) | payer MEDICARE, BC, SELFPAY ==
--- OUTSIDE RECORDS SUMMARY | 2025-01-04 14:38 | XMS_ITS | Clinical Summary ---
[facility] Organization [facility] , [facility] Address [address] [place] [address] Phone Care Team Providers Care Sas Architect Name Role Phone Shanna SUTTON, Pedro Unavailable Unavailable RANDA SUTTON, ALEX Primary Care Provider [phone] Reason for Visit and Chief Complaint The Chief Complaint is: LOW BACK PAIN Problems Includes: Problems addressed during this encounter and other active Problems All Visits Onset Date Resolved Date Provider Condition S tatus Lower Back Pain 06/28/2019 Pedro Otero MD A ctive Last Documented On 9 1:32PM ; [facility] Plan of Treatment - Patient screened for future fall risk: documentation of any fall with injury in past year - Last Documented On 07/05/2024 3:47PM ; [facility] Repeat lumbar epidural injection. If he wants to pursue pain pump he will let us know and we can make a referral to . - Last Documented On 07/05/2024 3:47PM ; [facility] Pending Tests Order Diagnosis Results Due Ordering P rovider Radiology - MRI MRI Lumbar Spine 07/31/22 DANIEL SHERMAN PA-C Last Documented On 2 3:35PM ; [facility] Future Appointments Date Time Location [facility] [place] Follow Up 01/31/2025 1:15PM [facility] JANAK SHERMAN PA-C Last Documented On 5 3:21PM ; [facility] Epidural Steroid Injection 02/03/2025 1:30PM [facility] JANAK Lim TUBE CARRIER Last Documented On 5 3:23PM ; [facility] Instructions to patient Intervention and counseling on cessation of tobacco use Last Documented On 4 2:57PM ; [facility] Lose weight Last Documented On 4 2:57PM ; [facility] Assessments Includes: Assessments from this encounter Findings - Overweight - Last Documented On 07/05/2024 3:47PM ; [facility] Patient has 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 This creates some stenosis affecting his legs. Patient is not felt to be very good surgical candidate then we would be considered high risk for surgery. This is mainly due to his medical issues. - Last Documented On 07/05/2024 3:47PM ; [facility] Instructions Includes: Instructions from this encounter Instructions to patient Intervention and counseling on cessation of tobacco use Last Documented On 4 2:57PM ; [facility] Lose weight Last Documented On 4 2:57PM ; [facility] Medical Equipment - Implanted Devices Includes: Current Devices No Medical Equipment Recorded Medications Includes: Medications discussed during this encounter and other current Medications Current Medications (continue as prescribed) Jardiance 10 MG Oral Tablet 10/22/2024 Provider: Diagnosis: Last Documented On 5 2:09PM By Deangelo Hellre [facility] Albuterol Sulfate HFA 108 (9 0 Base) MCG/ACT Inhalation Aerosol Solution 10/13/2024 Provider: Diagnosis: Last Documented On 5 2:09PM By Deangelo Heller [facility] Xarelto 15 MG Oral Tablet 10/13/2024 Provider: Diagnosis: Last Documented On 5 2:09PM By Deangelo Heller [facility] Clopidogrel Bisulfate 75 MG Oral Tablet 10/01/2024 Ally mason: Diagnosis: Last Documented On 5 2:09PM By Deangelo العلي ; [facility] Pantoprazole Sodium 40 MG Oral Tablet Delayed Release 10/01/2024 Provider: Diagnosis: Last Documented On 5 2:09PM By MARIANA Kiran Ranolazine ER 1000 MG Oral Tablet Extended Release 12 Hour 10/01/2024 Provider: Diagnosis: Last Documented On 5 2:09PM By MRAIANA Kiran Tamsulosin HCl 0.4 MG Oral Capsule 09/21/2024 Provid er: Diagnosis: Last Documented On 5 2:09PM By Deangelo CHOI [facility] Medications Administered Includes: Administered Medications from this encounter No Administered Medications Recorded Vital Signs Includes: Vital Signs from this encounter Vital Name 07/05/2024 02:55P Height (in) 70 Weight (lb) 210 Body Mass Index 30.1 Body Surface Area 2.1 Note: PW Last Documented: On 07/05/2024 2:55PM ; [facility] Results Includes: Results discussed during this encounter No Results Recorded For Specified Dates History of Present Illness Includes: History of Present Illness from this encounter NELLI Hsu is a 78 year old male. - Allergy list reviewed - Problem list reviewed - Medication list reviewed - Patient pain level from 1-10: 5 - History of Home Exercise 02/2024-DAILY - History of Injections 04/14/2024 L4-5 AISHWARYA INJ 60% FOR 6-8 WEEKS - - Review of medications documented Patient returns prior to repeat epidural injection. He had been receiving these injections periodically for a few years. He has known disc degeneration at multiple levels with degenerative spondylolisthesis at the L4-5 level and stenosis. He has had previously had done wide laminectomy at multiple levels throughout the lumbar back. Patient reports that the injections provide about 60% relief for 6 weeks. But does not have a great deal of other options available to him. He is not felt to be a good surgical candidate as surgery would likely require extensive surgery with a multilevel fusion. And he has a host of cardiac issues as well. He is on a blood thinner. I think this puts him at high risk for surgery. We did not discuss possibility of a pain pump to see if this can provide better relief for him. This is something he would like to think about but he would like to go ahead and pursue a repeat injection 1st as he is having some other medical issues that need to be addressed Social History Description Last Updated No recent change in diet 07/05/2024 Last Documented On 4 3:47PM ; [facility] Yes, current smoker. 07/05/2024 Last Documented On 4 3:47PM ; [facility] Exercising regularly 11/22/2020 Last Documented On 4 2:53PM ; [facility] Yes, current smoker. 11/22/2020 Last Documented On 4 2:53PM ; [facility] No recent change in diet 11/11/2019 Last Documented On 4 2:53PM ; [facility] Not using alcohol 11/11/2019 Last Documented On 4 2:53PM ; [facility] Not using drugs 11/11/2019 Last Documented On 4 2:53PM ; [facility] Tobacco use 06/28/2019 Last Documented On 4 2:53PM ; [facility] Caffeine use 06/28/2019 Last Documented On 4 2:53PM ; [facility] Current smoker 06/28/2019 Last Documented On 4 2:53PM ; [facility] Smoking Status Unknown Procedures and Surgical History Includes: Procedures from this encounter Procedures Code Diagnosis Performing Provider Service L ocation Service Date an [facility] was [id number] Last Documented On 4 2:56PM ; [facility] Surgical History Last Updated History of heart surgery heart ablation- 07/2021 ~heart stents ~ 07/17/2022 Last Documented On 4 2:53PM ; [facility] History of back surgery 06/28/2019 Last Documented On 4 2:53PM ; [facility] History of total knee arthroplasty 06/28 Last Documented On 4 2:53PM ; [facility] Medical History Includes: Medical History addressed during this encounter Description Last Updated Recent immunization for flu 06/2022 11/0 10/2021 Last Documented On 4 2:53PM ; [facility] A fib 07/17/2022 Last Documented On 4 2:53PM ; [facility], [facility] History of arthritis 01/02/2022 Last Documented On 4 2:53PM ; [facility], [facility] Depression 11/22/2020 Last Documented On 4 2:53PM ; [facility], [facility] Recent immunization for pneumococcal pne umonia 2020 11/22/2020 Last Documented On 4 2:53PM ; [facility], [facility] A recent injection 09/16/2019 - GRACIE SI joint injs. ~10/08/2019-GRACIE SI JOINT INJ ~07/28/19-AISHWARYA L45 11/11/2019 Last Documented On 4 2:53PM ; [facility], [facility] Arthritic joint problems 06/28/2019 Last Documented On 4 2:53PM ; [facility], [facility] History of heart disease 06/28/2019 Last Documented On 4 2:53PM ; [facility], [facility] Family History Includes: Family History addressed during this encounter Description Last Updated Diabetes mellitus 01/02/2022 Last Documented On 4 2:53PM ; [facility] Family history of cancer 06/28/2019 Last Documented On 4 2:53PM ; [facility] Family history of heart disease 06/28/20 19 Last Documented On 4 2:53PM ; [facility], [facility] Review of Systems Includes: Review of Systems from this encounter No Review of Systems Recorded Mental Status Includes: Mental Status from this encounter Description Depression Functional Status Includes: Functional Status from this encounter No Functional Status Recorded Physical Exam Includes: Physical Exam from this encounter Allergies Includes: Active Allergies Substance Type Reaction Onset Date Resolved Date Statu s Sulfa Antibiotics Allergy 06/28/2019 A ctive Last Documented On 5 2:09PM ; [facility], [facility] Encounters Encounter Provider Location Date Check-In Time Check-Out Time Diagnosis Follow Up KEATON SHERMAN PA-C [facility] 4 1:56PM 2:22PM Overweight Insurance Includes: Active Insurance Policies Plan Name Member ID Group # Subscriber Relationship Effect amy Dates 1 - Medicare Part B [facility] [id number] Mino Hsu Self 10/16/2011 - Unknown 2 - [employer] [facility] [id number] Mino Hsu Self 07/22/2016 - Unknown Clinical Notes Includes: Clinical Notes from this encounter * Progress note Date Encounter Last Documented by 07/05/2024 Follow Up Last documented on 07/05/2024; 3:47 PM, KEATON Butt; [facility], [facility] Active Problems & Conditions - Lower Back Pain Chief Complaint The Chief Complaint is: LOW BACK PAIN. Referred Here Referred by. History of Present Illness Mino Hsu is a 78 year old male. - Allergy list reviewed - Problem list reviewed - Medication list reviewed - Patient pain level from 1-10: 5 - History of Home Exercise 02/2024-DAILY - History of Injections 04/14/2024 L4-5 AISHWARYA INJ 60% FOR 6-8 WEEKS - - Review of medications documented Patient returns prior to repeat epidural injection. He had been receiving these injections periodically for a few years. He has known disc degeneration at multiple levels with degenerative spondylolisthesis at the L4-5 level and stenosis. He has had previously had done wide laminectomy at multiple levels throughout the lumbar back. Patient reports that the injections provide about 60% relief for 6 weeks. But does not have a great deal of other options available to him. He is not felt to be a good surgical candidate as surgery would likely require extensive surgery with a multilevel fusion. And he has a host of cardiac issues as well. He is on a blood thinner. I think this puts him at high risk for surgery. We did not discuss possibility of a pain pump to see if this can provide better relief for him. This is something he would like to think about but he would like to go ahead and pursue a repeat injection 1st as he is having some other medical issues that need to be addressed Current Medication - Albuterol Sulfate HFA 108 (90 Base) MCG/ACT Inhalation Aerosol Solution use as directed 17 days, 0 refills - Atorvastatin Calcium 10 MG Oral Tablet once a day 90 days, 0 refills - Carvedilol 3.125 MG Oral Tablet twice a day 30 days, 0 refills - Clopidogrel Bisulfate 75 MG Oral Tablet take as directed 30 days, 0 refills - Clopidogrel Bisulfate 75 MG Oral Tablet once a day 30 days, 0 refills - [facility] Daily Fiber 0.52 GM Oral Capsule take as directed 0 days, 0 refills - [facility] Natural Fish Oil 1000 MG Oral Capsule take as directed 0 days, 0 refills - diazePAM 5 MG Oral Tablet twice a day 30 days, 0 refills - DULoxetine HCl 30 MG Oral Capsule Delayed Release Particles once a day 30 days, 0 refills - DULoxetine HCl 60 MG Oral Capsule Delayed Release Particles once a day 30 days, 0 refills - oxyCODONE-Acetaminophen 5-325 MG Oral Tablet three times a day 30 days, 0 refills - Pantoprazole Sodium 40 MG Oral Tablet Delayed Release once a day 30 days, 0 refills - Prevagen 10 MG Oral Capsule take as directed 0 days, 0 refills - Ranolazine ER 500 MG Oral Tablet Extended Release 12 Hour twice a day 30 days, 0 refills - Stiolto Respimat 2.5-2.5 MCG/ACT Inhalation Aerosol Solution use as directed 30 days, 0 refills - Tamsulosin HCl 0.4 MG Oral Capsule once a day 30 days, 0 refills - Xarelto 20 MG Oral Tablet once a day 0 days, 0 refills Past Medical/Surgical History Reported: Medical: Arthritic joint problems. Medications: A recent injection 09/16/2019- GRACIE SI joint injs. 10/08/2019-GRACIE SI JOINT INJ 07/28/19-AISHWARYA L45. Immunization History: Recent immunization for flu 06/2022 and for pneumococcal pneumonia 2019. Diagnoses: Heart disease. Arthritis. Depression A fib. Surgical: - Heart surgery heart ablation-07/2021 heart stents - Back surgery - Total knee arthroplasty Social History Yes, current smoker. Yes, current smoker. Current diet: No recent change in diet. No recent change in diet. Caffeine use: Caffeine use. Tobacco use: Current smoker. Alcohol: Not using alcohol. Drug Use: Not using drugs. Habits: Exercising regularly. Allergies - Sulfa Antibiotics Family History Cancer Heart disease Diabetes mellitus Physical Findings - Vitals taken 07/05/2024 02:55 pm PW Height 70 in 60 - 80 Weight 210 lbs 121 - 205 Body Mass Index 30.1 kg/m2 Body Surface Area 2.1 m2 Skin is unremarkable. Patient has good mobility. He would done easily without assistance. He has some stiffness range of motion. Hip knee and ankle motion normal. He has a normal gait. No evidence of nerve root compression but he will get some referred symptoms in his hips in the legs especially on the right side which seemed to follow an L5 and S1 pain referral pattern. At rest he does not have a lot of symptoms. It is mainly when he is weight-bearing. Assessment - Overweight Patient has 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 This creates some stenosis affecting his legs. Patient is not felt to be very good surgical candidate then we would be considered high risk for surgery. This is mainly due to his medical issues. Previous Tests Imaging: X-Ray: An X-ray was performed 07/24/2024 [facility]. Counseling/Education - Tobacco use - Use of tobacco assessment performed - Intervention and counseling on cessation of tobacco use - Lose weight Plan - Patient screened for future fall risk: documentation of any fall with injury in past year Repeat lumbar epidural injection. If he wants to pursue pain pump he will let us know and we can make a referral to . Notes This dictation was done with voice recognition software and may contain errors and omissions. Care Team - ALEX TOLENTINO MD - COMPUTER OPERATOR Health Reminders - Assess BMI satisfied 07/05/2024. - Assess Tobacco Use satisfied 06/28/2019. - Follow Up Plan BMI Management satisfied 07/05/2024. - Smoking & Tobacco Cessation Intervention and Counseling satisfied 07/05/2024.
--- OUTSIDE RECORDS SUMMARY | 2025-01-04 14:38 | XMS_ITS ---
Author Organization [facility] Address [address] [address] Phone Care Team Providers Care Electronics Instructor Name Role Phone Shanna SUTTON, Pedro TOLENTINO MD, ALEX Primary Care Provider [phone] Reason for Referral Date Encounter Description Provider Reason for Referral 04/13/24 Phone Call KEATON SHERMAN PA-C Referral To Physician 03/03/24 Follow Up KEATON SHERMAN PA-C Referral To Physician 07/24/23 Follow Up KEATON SHERMAN PA-C Referral To Physician 08/21/22 Follow Up KEATON SHERMAN PA-C Referral To Physician 07/17/22 Follow Up KEATON SHERMAN PA-C Referral To Physician Problems Includes: Active, inactive, and resolved Problems All Visits Onset Date Resolved Date Provider Condition S tatus Lower Back Pain 06/28/2019 Pedro Otero MD A ctive Last Documented On 9 1:32PM ; [facility] Plan of Treatment Findings Encounter Date Patient screened for future fall risk: documentation of any fall with injury in past year Follow Up with KEATON SHERMAN PA-C 10/28/2024 Last Documented On 5 9:54AM ; [facility] Patient screened for future fall risk: documentation of any fall with injury in past year Follow Up with KEATON SHERMAN PA-C 07/05/2024 Last Documented On 4 3:47PM ; [facility] Patient screened for future fall risk: documentation of any fall with injury in past year Phone Call with KEATON SHERMAN PA-C 04/13/2024 Last Documented On 4 4:06PM ; [facility] Patient screened for future fall risk: documentation of any fall with injury in past year Follow Up with KEATON SHERMAN PA-C 03/03/2024 Last Documented On 4 2:59PM ; [facility] Pending Tests Order Diagnosis Results Due Ordering P rovider Radiology - MRI MRI Lumbar Spine 07/31/22 DANIEL SHERMAN PA-C Last Documented On 2 3:35PM ; [facility] Future Appointments Date Time Location [facility] [place] Follow Up 01/31/2025 1:15PM [facility] JANAK SHERMAN PA-C Last Documented On 5 3:21PM ; [facility] Epidural Steroid Injection 02/03/2025 1:30PM [facility] [place] CRNA Last Documented On 5 3:23PM ; [facility] Instructions to patient Intervention and counseling on cessation of tobacco use Last Documented On 5 2:09PM ; [facility] Lose weight Last Documented On 5 2:09PM ; [facility] Intervention and counseling on cessation of tobacco use Last Documented On 4 2:57PM ; [facility] Lose weight Last Documented On 4 2:57PM ; [facility] Intervention and counseling on cessation of tobacco use Last Documented On 4 12:52PM ; [facility] Intervention and counseling on cessation of tobacco use Last Documented On 4 12:52PM ; [facility] Lose weight Last Documented On 4 12:52PM ; [facility] Intervention and counseling on cessation of tobacco use Last Documented On 4 1:29PM ; [facility] Intervention and counseling on cessation of tobacco use Last Documented On 4 1:33PM ; [facility] Lose weight Last Documented On 4 1:29PM ; [facility] Intervention and counseling on cessation of tobacco use Last Documented On 3 2:35PM ; [facility] Lose weight Last Documented On 3 2:35PM ; [facility] Intervention and counseling on cessation of tobacco use Last Documented On 2 1:41PM ; [facility] Lose weight Last Documented On 2 1:41PM ; [facility] Intervention and counseling on cessation of tobacco use Last Documented On 2 3:06PM ; [facility] Lose weight Last Documented On 2 3:06PM ; [facility] Intervention and counseling on cessation of tobacco use Last Documented On 2 1:37PM ; [facility] Lose weight Last Documented On 2 1:37PM ; [facility] Intervention and counseling on cessation of tobacco use Last Documented On 2 1:51PM ; [facility] Lose weight Last Documented On 2 2:23PM ; [facility] Instructions for patient to see pcp for bp Last Documented On 1 1:49PM ; [facility] Intervention and counseling on cessation of tobacco use Last Documented On 1 1:49PM ; [facility] Instructions for patient to see pcp for bp Last Documented On 0 1:56PM ; [facility] Intervention and counseling on cessation of tobacco use Last Documented On 0 1:56PM ; [facility] Instructions for patient to see pcp for bp Last Documented On 0 2:13PM ; [facility] Intervention and counseling on cessation of tobacco use Last Documented On 0 2:13PM ; [facility] Instructions for patient to see pcp for bp Last Documented On 9 10:54AM ; [facility] Intervention and counseling on cessation of tobacco use Last Documented On 9 10:54AM ; [facility] Instructions for patient to see pcp for bp Last Documented On 9 4:11PM ; [facility] Intervention and counseling on cessation of tobacco use Last Documented On 9 2:21PM ; [facility] Education and Decision Aids were provided during visit for: Discussed concerns about tob acco use Last Documented On 1 1:49PM ; [facility] Health seminar on smoking ce ssation Last Documented On 1 1:49PM ; [facility] Discussed concerns about tob acco use Last Documented On 0 1:56PM ; [facility] Health seminar on smoking ce ssation Last Documented On 0 1:56PM ; [facility] Discussed concerns about tob acco use Last Documented On 0 2:13PM ; [facility] Health seminar on smoking ce ssation Last Documented On 0 2:13PM ; [facility] Discussed concerns about tob acco use Last Documented On 9 10:54AM ; [facility] Health seminar on smoking ce ssation Last Documented On 9 11:59AM ; [facility] Discussed concerns about tob acco use Last Documented On 9 2:21PM ; [facility] Assessments Includes: Assessments for all patient encounters Findings Encounter Date Overweight Follow Up with KEATON Ramirez 10/28/2024 Last Documented On 5 9:54AM ; [facility] Overweight Follow Up with KEATON Ramirez 07/05/2024 Last Documented On 4 3:47PM ; [facility] Overweight Phone Call with KEATON Singleton 04/13/2024 Last Documented On 4 4:06PM ; [facility] Overweight Follow Up with KEATON Ramirez 03/03/2024 Last Documented On 4 2:59PM ; [facility] Overweight Follow Up with KEATON Ramirez 07/24/2023 Last Documented On 3 10:19AM ; [facility] Instructions Includes: Instructions for all patient encounters Instructions to patient Intervention and counseling on cessation of tobacco use Last Documented On 5 2:09PM ; [facility] Lose weight Last Documented On 5 2:09PM ; [facility] Intervention and counseling on cessation of tobacco use Last Documented On 4 2:57PM ; [facility] Lose weight Last Documented On 4 2:57PM ; [facility] Intervention and counseling on cessation of tobacco use Last Documented On 4 12:52PM ; [facility] Intervention and counseling on cessation of tobacco use Last Documented On 4 12:52PM ; [facility] Lose weight Last Documented On 4 12:52PM ; [facility] Intervention and counseling on cessation of tobacco use Last Documented On 4 1:29PM ; [facility] Intervention and counseling on cessation of tobacco use Last Documented On 4 1:33PM ; [facility] Lose weight Last Documented On 4 1:29PM ; [facility] Intervention and counseling on cessation of tobacco use Last Documented On 3 2:35PM ; [facility] Lose weight Last Documented On 3 2:35PM ; [facility] Intervention and counseling on cessation of tobacco use Last Documented On 2 1:41PM ; [facility] Lose weight Last Documented On 2 1:41PM ; [facility] Intervention and counseling on cessation of tobacco use Last Documented On 2 3:06PM ; [facility] Lose weight Last Documented On 2 3:06PM ; [facility] Intervention and counseling on cessation of tobacco use Last Documented On 2 1:37PM ; [facility] Lose weight Last Documented On 2 1:37PM ; [facility] Intervention and counseling on cessation of tobacco use Last Documented On 2 1:51PM ; [facility] Lose weight Last Documented On 2 2:23PM ; [facility] Instructions for patient to see pcp for bp Last Documented On 1 1:49PM ; [facility] Intervention and counseling on cessation of tobacco use Last Documented On 1 1:49PM ; [facility] Instructions for patient to see pcp for bp Last Documented On 0 1:56PM ; [facility] Intervention and counseling on cessation of tobacco use Last Documented On 0 1:56PM ; [facility] Instructions for patient to see pcp for bp Last Documented On 0 2:13PM ; [facility] Intervention and counseling on cessation of tobacco use Last Documented On 0 2:13PM ; [facility] Instructions for patient to see pcp for bp Last Documented On 9 10:54AM ; [facility] Intervention and counseling on cessation of tobacco use Last Documented On 9 10:54AM ; [facility] Instructions for patient to see pcp for bp Last Documented On 9 4:11PM ; [facility] Intervention and counseling on cessation of tobacco use Last Documented On 9 2:21PM ; [facility] Education and Decision Aids were provided during visit for: Discussed concerns about tob acco use Last Documented On 1 1:49PM ; [facility] Health seminar on smoking ce ssation Last Documented On 1 1:49PM ; [facility] Discussed concerns about tob acco use Last Documented On 0 1:56PM ; [facility] Health seminar on smoking ce ssation Last Documented On 0 1:56PM ; [facility] Discussed concerns about tob acco use Last Documented On 0 2:13PM ; [facility] Health seminar on smoking ce ssation Last Documented On 0 2:13PM ; [facility] Discussed concerns about tob acco use Last Documented On 9 10:54AM ; [facility] Health seminar on smoking ce ssation Last Documented On 9 11:59AM ; [facility] Discussed concerns about tob acco use Last Documented On 9 2:21PM ; [facility] Medical Equipment - Implanted Devices Includes: Current and historical Devices No Medical Equipment Recorded Medications Includes: Current and historical Medications Current Medications (continue as prescribed) Jardiance 10 MG Oral Tablet 10/22/2024 Provider: Diagnosis: Last Documented On 5 2:09PM By Deangelo العلي ; [facility] Albuterol Sulfate HFA 108 (9 0 Base) MCG/ACT Inhalation Aerosol Solution 10/13/2024 Provider: Diagnosis: Last Documented On 5 2:09PM By Deangelo العلي ; [facility] Xarelto 15 MG Oral Tablet 10/13/2024 Provider: Diagnosis: Last Documented On 5 2:09PM By Deangelo العلي ; [facility] Clopidogrel Bisulfate 75 MG Oral Tablet 10/01/2024 P roieshader: Diagnosis: Last Documented On 5 2:09PM By Deangelo العلي ; [facility] Pantoprazole Sodium 40 MG Oral Tablet Delayed Release 10/01/2024 Provider: Diagnosis: Last Documented On 5 2:09PM By Deangelo العلي ; [facility] Ranolazine ER 1000 MG Oral Tablet Extended Release 12 Hour 10/01/2024 Provider: Diagnosis: Last Documented On 5 2:09PM By Deangelo العلي ; [facility] Tamsulosin HCl 0.4 MG Oral Capsule 09/21/2024 Provid er: Diagnosis: Last Documented On 5 2:09PM By Deangelo العلي ; [facility] Past Medications on file Prevagen 10 MG Oral Capsule 07/17/2022 - 10/28/2024 Pr ovider: Diagnosis: Last Documented On 5 2:09PM By Deangelo العلي ; [facility] Natural Fish Oil 1000 MG Oral Capsule 07/17/2022 - 10/28/2024 Provider: Diagnosis: Last Documented On 5 2:09PM By Deangelo العلي ; [facility] Daily Fiber 0.52 GM Oral Capsule 07/17/2022 - 10/16 Provider: Diagnosis: Last Documented On 5 2:09PM By Deangelo العلي ; [facility] Xarelto 20 MG Oral Tablet 07/17/2022 - 10/28/2024 Prov ider: Diagnosis: Last Documented On 5 2:09PM By Deangelo العلي ; [facility] diazePAM 5 MG Oral Tablet 07/16/2022 - 10/28/2024 Prov ider: ALEX TOLENTINO MD Diagnosis: Last Documented On 5 2:08PM By Deangelo العلي ; [facility] Stiolto Respimat 2.5-2.5 MCG /ACT Inhalation Aerosol Solution 07/15/2022 - 10/28/2024 Provider: ALEX TOLENTINO MD Diagnosis: Last Documented On 5 2:08PM By Deangelo العلي ; [facility] Albuterol Sulfate HFA 108 (9 0 Base) MCG/ACT Inhalation Aerosol Solution 07/15/2022 - 10/28/2024 Provider: ALEX TOLENTINO MD Diagnosis: Last Documented On 5 2:08PM By Deangelo العلي ; [facility] Clopidogrel Bisulfate 75 MG Oral Tablet 07/04/2022 - 10/28/2024 Provider: ALEX TOLENTINO MD Diagnosis: Last Documented On 5 2:08PM By Deangelo العلي ; [facility] Ranolazine ER 500 MG Oral Ta blet Extended Release 12 Hour 06/28/2022 - 10/28/2024 Provider: Diagnosis: Last Documented On 5 2:08PM By Deangelo العلي ; [facility] Pantoprazole Sodium 40 MG Or al Tablet Delayed Release 06/28/2022 - 10/28/2024 Provider: ALEX TOLENTINO MD Diagnosis: Last Documented On 5 2:08PM By Deangelo العلي ; [facility] Carvedilol 3.125 MG Oral Tablet 06/28/2022 - Provider: Diagnosis: Last Documented On 5 2:08PM By Deangelo العلي ; [facility] Tamsulosin HCl 0.4 MG Oral Capsule 06/20/2022 - 2024 Provider: CRISTOBAL CROSS MD Diagnosis: Last Documented On 5 2:08PM By Deangelo العلي ; [facility] oxyCODONE-Acetaminophen 5-32 5 MG Oral Tablet 06/20/2022 - 10/28/2024 Provider: ALEX TOLENTINO MD Diagnosis: Last Documented On 5 2:08PM By Deangelo العلي ; [facility] DULoxetine HCl 60 MG Oral Ca psule Delayed Release Particles 06/20/2022 - 10/28/2024 Provider: ALEX ANDERSON MD Diagnosis: Last Documented On 5 2:08PM By Deangelo العلي ; [facility] DULoxetine HCl 30 MG Oral Ca psule Delayed Release Particles 05/21/2022 - 10/28/2024 Provider: ALEX ANDERSON MD Diagnosis: Last Documented On 5 2:08PM By Deangelo العلي ; [facility] Atorvastatin Calcium 10 MG O ral Tablet 05/14/2022 - 10/28/2024 Provider: ALEX TOLENTINO MD Diagnosis: Last Documented On 5 2:08PM By Deangelo العلي ; [facility] Clopidogrel Bisulfate 75 MG Oral Tablet 04/19/2022 - 10/28/2024 Provider: ALEX TOLENTINO MD Diagnosis: Last Documented On 5 2:08PM By Deangelo العلي ; [facility] Entresto 49-51 MG Oral Tablet 01/02/2022 - 04/02/2022 Provider: Diagnosis: Last Documented On 2 1:44PM By Bienvenido Bobby ; [facility] Pantoprazole Sodium 40 MG Or al Tablet Delayed Release 01/02/2022 - 07/17/2022 Provider: Diagnosis: Last Documented On 2 4:25PM By Holland Sherman ; [facility] Atorvastatin Calcium 10 MG Oral Tablet 01/02/2022 - Provider: Diagnosis: Last Documented On 2 4:25PM By Holland Sherman ; [facility] Mirtazapine 15 MG Oral Tablet 01/02/2022 - 07/17/2022 Provider: Diagnosis: Last Documented On 2 4:25PM By Holland Sherman ; [facility] Tamsulosin HCl 0.4 MG Oral Capsule 01/02/2022 - 2021 Provider: Diagnosis: Last Documented On 2 4:26PM By Holland Sherman ; [facility] Plavix 75 MG Oral Tablet 01/02/2022 - 04/26/2022 [facility] [place]: Diagnosis: Last Documented On 11:43AM By Mallory Farmer ; [facility] Metoprolol Succinate ER 25 M G Oral Tablet Extended Release 24 Hour 01/02/2022 - 07/17/2022 Provider: Diagnosis: Last Documented On 2 4:25PM By Holland Sherman ; [facility] Bumetanide 1 MG Oral Tablet 01/02/2022 - 07/17/2022 Pr ovider: Diagnosis: Last Documented On 2 4:25PM By Holland Sherman ; [facility] Daily Fiber 0.52 GM Oral Capsule 01/02/2022 - 1110/2021 Provider: Diagnosis: Last Documented On 2 4:26PM By Holland Sherman ; [facility] Prevagen 10 MG Oral Capsule 01/02/2022 - 07/17/2022 Pr ovider: Diagnosis: Last Documented On 2 4:25PM By Holland Sherman ; [facility] Natural Fish Oil 1000 MG Oral Capsule 01/02/2022 - 07/17/2022 Provider: Diagnosis: Last Documented On 2 4:26PM By Holland Sherman ; [facility] Xarelto 20 MG Oral Tablet 01/02/2022 - 07/17/2022 Prov ider: Diagnosis: Last Documented On 2 4:25PM By Holland Sherman ; [facility] diazePAM 5 MG Oral Tablet 12/27/2021 - 07/17/2022 Prov ider: ALEX TOLENTINO MD Diagnosis: Last Documented On 2 4:26PM By Holland Sherman ; [facility] oxyCODONE-Acetaminophen 5-32 5 MG Oral Tablet 11/26/2021 - 07/17/2022 Provider: ALEX TOLENTINO MD Diagnosis: Last Documented On 2 4:26PM By Holland Sherman ; [facility] Centrum Silver Oral Tablet 11/22/2020 - 07/17/2022 Pro vider: Diagnosis: Last Documented On 2 4:26PM By Holland Sherman ; [facility] EQL Fish Oil 1000 MG Oral Capsule 11/22/2020 - 022 Provider: Diagnosis: Last Documented On 2 4:26PM By Holland Sherman ; [facility] Prevagen 10 MG Oral Capsule 11/22/2020 - 07/17/2022 Pr ovider: Diagnosis: Last Documented On 2 4:27PM By Holland Sherman ; [facility] diazePAM 10 MG Oral Tablet 11/22/2020 - 07/17/2022 Pro vider: Diagnosis: Last Documented On 2 4:26PM By Holland Sherman ; [facility] Tamsulosin HCl 0.4 MG Oral Capsule 11/22/2020 - 2021 Provider: Diagnosis: Last Documented On 2 4:26PM By Holland Sherman ; [facility] Mirtazapine 7.5 MG Oral Tablet 11/22/2020 - 07/17/2022 Provider: Diagnosis: Last Documented On 2 4:25PM By Holland Sherman ; [facility] Xarelto 20 MG Oral Tablet 06/28/2019 - 01/02/2022 Prov ider: Diagnosis: Last Documented On 2 3:53PM By Maria Luisa Hampton ; [facility] Metoprolol Succinate 25 MG O ral Capsule ER 24 Hour Sprinkle 06/28/2019 - 01/02/2022 Provider: Diagnosis: Last Documented On 2 4:26PM By Maria Luisa Hampton ; [facility] Cyclobenzaprine HCl 10 MG Oral Tablet 06/25/2019 - Provider: Diagnosis: Last Documented On 2 4:27PM By Maria Luisa Hampton ; [facility] predniSONE 1 MG Oral Tablet 06/25/2019 - 01/02/2022 Pr ovider: Diagnosis: Last Documented On 2 4:27PM By Maria Luisa Hampton ; [facility] oxyCODONE HCl 5 MG Oral Tablet 06/18/2019 - 01/02/2022 Provider: Diagnosis: Last Documented On 2 4:27PM By Maria Luisa Hampton ; [facility] DULoxetine HCl 60 MG Oral Ca psule Delayed Release Particles 06/02/2019 - 01/02/2022 Provider: Diagnosis: Last Documented On 2 4:22PM By Maria Luisa Hampton ; [facility] Amiodarone HCl 200 MG Oral Tablet 06/02/2019 - 022 Provider: Diagnosis: Last Documented On 2 4:22PM By Maria Luisa Hampton ; [facility] Simvastatin 20 MG Oral Tablet 05/26/2019 - 01/02/2022 Provider: Diagnosis: Last Documented On 2 4:22PM By Maria Luisa Hampton ; [facility] EQ Omeprazole 20 MG Oral Tab let Delayed Release Disintegrating 04/20/2019 - 01/02/2022 Provider: Diagnosis: Last Documented On 2 4:21PM By Maria Luisa Hampton ; [facility] Lisinopril 10 MG Oral Tablet 04/06/2019 - 01/02/2022 P rovider: Diagnosis: Last Documented On 2 4:21PM By Maria Luisa Hampton ; [facility] Medications Administered Includes: Administered Medications in patient's chart No Administered Medications Recorded Vital Signs Includes: Vital Signs from 01/05/2024 through 01/04/2025 Vital Name 10/28/2024 02:25P 07/05/2024 02:55P 03/03 01:33P Height (in) 70 70 70 Weight (lb) 210 210 217.8 Body Mass Index 30.1 30.1 31.3 Body Surface Area 2.1 2.1 2.2 Pain Level 5 Note: cd PW ct Last Documented: On 10/28/2024 2:25PM ; [facility] On 07/05/2024 2:55PM ; [facility] On 03/03/2024 1:33PM ; [facility] Results Includes: Results from 01/05/2024 through 01/04/2025 No Results Recorded For Specified Dates History of Present Illness History of Present Illness not supported for this document type No History of Present Illness Recorded Social History Description Last Updated No recent change in diet 07/05/2024 Last Documented On 4 3:47PM ; [facility] Yes, current smoker. 07/05/2024 Last Documented On 4 3:47PM ; [facility] Is a smoker 04/02/2022 Last Documented On 2 2:04PM ; [facility] Exercising regularly 11/22/2020 Last Documented On 1 10:20PM ; [facility] Yes, current smoker. 11/22/2020 Last Documented On 1 10:20PM ; [facility] Smoker 11/22/2020 Last Documented On 1 10:20PM ; [facility] No recent change in diet 11/11/2019 Last Documented On 0 3:17PM ; [facility] Not using alcohol 11/11/2019 Last Documented On 0 3:17PM ; [facility] Not using drugs 11/11/2019 Last Documented On 0 3:17PM ; [facility] Tobacco use 06/28/2019 Last Documented On 9 11:11AM ; [facility] Smoking status : Current everyday smoker 06/28/2019 Last Documented On 9 11:11AM ; [facility] Caffeine use 06/28/2019 Last Documented On 9 11:11AM ; [facility] Current smoker 06/28/2019 Last Documented On 9 11:11AM ; [facility] Procedures and Surgical History Includes: Procedures from 01/05/2024 through 01/04/2025 Procedures Code Diagnosis Performing Provider Service Location Service Date Triamcinolone/Ke nalog, 10mg per cc [id number] Spinal stenosis, lumbar region with neurogenic claudication [place] [employer] [facility] 11/03/2024 Last Documented On 5 2:22PM ; [facility] Lumbar epidural 90355 Spinal stenosis, lumbar region with neurogenic claudication [place] Carina [employer] [facility] 11/03/2024 Last Documented On 5 2:22PM ; [facility] X-RAY EXAM OF LOWER SPINE 2-3 VIEWS LIMITED [id number] Spinal stenosis, lumbar region with neurogenic claudication KEATON SHERMAN PA-C [facility] 10/28/2024 Last Documented On 5 2:06PM ; [facility] Triamcinolone/Kenalog, 10mg per cc [id number] Spinal stenosis, lumbar region with neurogenic claudication [place] [employer] [facility] 07/21/2024 Last Documented On 4 8:01AM ; [facility] Lumbar epidural [id number] Spinal stenosis, lumbar region with neurogenic claudication Glen Renae Carina [employer] [facility] 07/21/2024 Last Documented On 4 8:01AM ; [facility] Triamcinolone/Kenalog, 10mg per cc [id number] Spinal stenosis, lumbar region without neurogenic ivy [place] [employer] [facility] 04/14/2024 Last Documented On 4 4:52PM ; [facility] Lumbar epidural 18287 Spinal stenosis, lumbar region without neurogenic ivy Glen Davilarick Carina [employer] [facility] 04/14/2024 Last Documented On 4 4:52PM ; [facility] Surgical History Last Updated History of heart surgery heart ablation- 07/2021 ~heart stents ~ 07/17/2022 Last Documented On 2 4:27PM ; [facility] History of back surgery 06/28/2019 Last Documented On 9 11:11AM ; [facility] History of total knee arthroplasty 06/28 Last Documented On 9 11:11AM ; [facility] Medical History Includes: Medical History in patient's chart Description Last Updated Recent immunization for flu 06/2022 11/0 10/2021 Last Documented On 2 4:27PM ; [facility] A fib 07/17/2022 Last Documented On 2 4:27PM ; [facility] History of arthritis 01/02/2022 Last Documented On 2 9:33AM ; [facility] Depression 11/22/2020 Last Documented On 1 10:20PM ; [facility] Recent immunization for pneumococcal pne umonia 201911/22/2020 Last Documented On 1 10:20PM ; [facility] A recent injection 09/16/2019 - GRACIE SI joint injs. ~10/08/2019-GRACIE SI JOINT INJ ~07/28/19-AISHWARYA L45 11/11/2019 Last Documented On 0 3:17PM ; [facility] Arthritic joint problems 06/28/2019 Last Documented On 9 11:11AM ; [facility] History of depression 06/28/2019 Last Documented On 9 11:11AM ; [facility] History of heart disease 06/28/2019 Last Documented On 9 11:11AM ; [facility] Family History Includes: Family History in patient's chart Description Last Updated Diabetes mellitus 01/02/2022 Last Documented On 2 9:33AM ; [facility] Family history of cancer 06/28/2019 Last Documented On 9 11:11AM ; [facility] Family history of heart disease 06/28/20 19 Last Documented On 9 11:11AM ; [facility] Review of Systems Review of Systems not supported for this document type No Review of Systems Recorded Mental Status No Mental Status Recorded Functional Status No Functional Status Recorded Physical Exam Physical Exam not supported for this document type No Physical Exam Recorded Immunizations Includes: Immunizations in patient's chart Vaccine Dose # Date Site Reaction(s) Status Source Influenza 1 06/15/2021 Complete (Reported) Patient Last Documented On 2 2:23PM ; [facility] Influenza 2 06/15/2022 Complete (Reported) Patient Last Documented On 2 3:17PM ; [facility] PCV (Pneumovax 23) 1 09/15/2019 Complete ( Reported) Patient Last Documented On 2 2:23PM ; [facility] PCV (Pneumovax 23) 2 04/02/2022 Complete (Refused - Patient objection) [facility] Last Documented On 2 1:37PM ; [facility] Td 1 04/02/2022 Complete (Refused - Patient objection) [facility] Last Documented On 2 1:37PM ; [facility] Allergies Includes: Active, inactive, and resolved Allergies Substance Type Reaction Onset Date Resolved Date Statu s Sulfa Antibiotics Allergy 06/28/2019 A ctive Last Documented On 5 2:09PM ; [facility] Encounters Includes: Encounters from 01/05/2024 through 01/04/2025 Encounter Provider Location Date Check-In Time Check-Out Time Diagnosis Epidural Steroid Injection [place] [employer] [facility] 11/03/19 25 2:03PM 3:19PM Follow Up KETAON SHERMAN PA-C [facility] 10/28/19 25 1:51PM 2:32PM Overweight Epidural Steroid Injection [place] [employer] [facility] 07/21/20 24 1:48PM 2:44PM Epidural Steroid Injection [place] [employer] 07/21/20 24 07/05/2024 9:44AM 07/05/2024 11:59PM Follow Up KEATON SHERMAN PA-C [facility] 07/05/20 24 1:56PM 2:22PM Overweight Epidural Steroid Injection [place] Lim [employer] 04/14/20 24 03/03/2024 2:26PM 03/03/2024 11:59PM Epidural Steroid Injection [place] Lim [employer] [facility] 04/14/20 24 1:16PM 2:01PM Phone Call KEATON SHERMAN PA-C [facility] 04/13/20 24 12:44PM 1:18PM Overweight Follow Up KEATON SHERMAN PA-C [facility] 03/03/20 1:24PM 1:43PM Overweight Insurance Includes: Active Insurance Policies Plan Name Member ID Group # Subscriber Relationship Effect amy Dates 1 - Medicare Part B of [place] [id number] Mino Hsu Self 10/16/2011 - Unknown 2 - [facility] [id number] Mino Hsu Self 07/22/2016 - Unknown Clinical Notes Includes: Signed Clinical Notes starting from 08/29/2022 * Progress note Date Encounter Last Documented by 10/28/2024 Follow Up Last documented on 11/22/2024; 9:54 AM, KEATON Butt; [facility] Active Problems & Conditions - [...] of medications documented Patient returns prior to another lumbar epidural injection. He had been receiving these periodically over the past few years. Patient has known disc degeneration with degenerative spondylolisthesis. 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 They do not eliminate all of his symptoms but these not quite ready to pursue surgical treatment. He has degenerative spondylolisthesis with multilevel disc degeneration. In with this I do not know that surgery would be all that effective in managing his pain. Patient finds the injections fairly effective. He wants to continue these. Current Medication - Albuterol Sulfate HFA 108 (90 Base) MCG/ACT Inhalation Aerosol Solution 17 days, 0 refills - Clopidogrel Bisulfate 75 MG Oral Tablet 30 days, 0 refills - Jardiance 10 MG Oral Tablet 30 days, 0 refills - Pantoprazole Sodium 40 MG Oral Tablet Delayed Release 30 days, 0 refills - Ranolazine ER 1000 MG Oral Tablet Extended Release 12 Hour 30 days, 0 refills - Tamsulosin HCl 0.4 MG Oral Capsule 30 days, 0 refills - Xarelto 15 MG Oral Tablet 30 days, 0 refills Past Medical/Surgical History Reported: Medical: Arthritic joint problems. Medications: A recent injection 09/16/2019- GRACIE SI joint injs. 10/08/2019-GRACIE SI JOINT INJ 07/28/19-AISHWARYA L45. Immunization History: Recent immunization for flu 06/2022 and for pneumococcal pneumonia 2019. Diagnoses: Heart disease. Arthritis. Depression. Depression A fib. Surgical: - Heart surgery heart ablation-07/2021 heart stents - Back surgery - Total knee arthroplasty Social History Yes, current smoker. Current diet: No recent change in diet. Caffeine use: Caffeine use. Tobacco use: Is a smoker. Alcohol: Not using alcohol. Drug Use: Not using drugs. Habits: Exercising regularly. Allergies - Sulfa Antibiotics Family History Cancer Heart disease Diabetes mellitus Physical Findings - Vitals taken 10/28/2024 02:25 pm cd Height 70 in 60 - 80 Weight 210 lbs 121 - 205 Body Mass Index 30.1 kg/m2 Body Surface Area 2.1 m2 Pain Level 5 Skin is unremarkable. Patient has good mobility. Usually after he had been standing or walking he will have increasing pain and discomfort across the lower back and into the hips. He has good motion through the hip joints knees and ankles. He has a negative straight leg raising for nerve root compression. But he will complain of some leg symptoms with weight-bearing activities. This seems to follow mostly L5 and S1 pain referral pattern. Tests 2V X-rays lumbar spine essentially unchanged. Degenerative spondylolisthesis at the L4-5 level with multilevel disc degeneration facet arthritis. 2v lumbar spine xrays AP and Lateral views of the lumbar spine were obtained today Assessment - Overweight 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 Previous Tests Imaging: X-Ray: X-ray 07/24/2024 [facility]. Counseling/Education - Tobacco use - Use of tobacco assessment performed - Intervention and counseling on cessation of tobacco use - Lose weight Plan - Patient screened for future fall risk: documentation of any fall with injury in past year Continue with the epidural injections for now. Will see him back in follow-up in a few months reassessment and likely reinjection. Fall Risk Assessment: This patient has been identified as a fall risk. Balance/gait along with postural blood pressure, vision and home fall hazards have been assessed. Medications have been reviewed, and recommendations made with regard to contributing factors for future falls. Plan of care: Consideration of vitamin D supplementation along with balance and strength training with consideration for formal physical therapy has been discussed with the patient. Notes This dictation was done with voice recognition software and may contain errors and omissions. Care Team - ALEX TOLENTINO MD - INTERLINE CLERK Health Reminders - Assess BMI satisfied 10/28/2024. - Assess Tobacco Use satisfied 10/28/2024. - Follow Up Plan BMI Management satisfied 10/28/2024. - Smoking & Tobacco Cessation Intervention and Counseling satisfied 10/28/2024. * Progress note Date Encounter Last Documented by 07/05/2024 Follow Up Last documented on 07/05/2024; 3:47 PM, KEATON Butt; [facility] Active Problems & Conditions - [...] Imaging: X-Ray: An X-ray was performed 07/24/2024 [facility]. Counseling/Education - Tobacco use - Use of [...] Care Team - ALEX TOLENTINO MD - INTERLINE CLERK Health Reminders - Assess BMI satisfied 07/05/2024. - Assess Tobacco Use satisfied 06/28/2019. - Follow Up Plan BMI Management satisfied 07/05/2024. - Smoking & Tobacco Cessation Intervention and Counseling satisfied 07/05/2024. * Progress note Date Encounter Last Documented by 04/13/2024 Phone Call Last documented on 04/13/2024; 4:06 PM, KEATON Butt; [facility] Active Problems & Conditions - Lower Back Pain Chief Complaint The Chief Complaint is: Lumbar pain. Referred Here Referred by self. History of Present Illness Mino Hsu is a 78 year old male. - Symptoms better laying on heating pad worse getting up. - Allergy list reviewed - Problem list reviewed - Medication reconciliation performed - Medication list reviewed - Previous history of new onset pain Injury is not work related or an automotive accident - Sharp pain Symptoms - Pain is constant (100% of the time) - Patient pain level from 1-10: 8 - History of Physical Therapy - History of Home Exercise 10/16/2023-DAILY - History of Injections 08/01/2022-AISHWARYA L4-5 04/30/2022-AISHWARYA L4-5 02/06/2022-AISHWARYA L4-5 01/15/2022-GRACIE SI joint inj 03/16/2021-GRACIE SI joint inj 12/01/2020-GRACIE SI joint inj 10/08/2019-GRACIE SI JOINT INJ 09/16/2019- GRACIE SI joint injs. 07/28/19-AISHWARYA L45 05/21/2023 L4-5 AISHWARYA 09/04/2023 L4-5 AISHWARYA 12/11/2023 L4-5 AISHWARYA 70% FOR 2 MTHS - No previous treatment. - - Review of medications documented Patient's visit today was done via telephone. Patient has been receiving the occasional neural injection where he will get 60-70% relief of his lower back and left leg symptoms for about 6 weeks before the symptoms slowly started to worsen. We did have a discussion about pursuing more definitive treatment. He has not interested in pursuing any surgical treatment. He would like to just continue with the injections periodically. He is also doing some exercises which does provide some help for him. He states that he can deal with his symptoms as long as he is modifying his activities and getting the occasional injection. Current Medication - Albuterol Sulfate HFA 108 [...] pneumococcal pneumonia 2019. Diagnoses: Heart disease. Arthritis. Depression. Depression A fib. Surgical: - Heart surgery heart ablation-07/2021 heart stents - Back surgery - Total knee arthroplasty Social History Yes, current smoker. Current diet: No recent change in diet. Caffeine use: Caffeine use. Tobacco use: Is a smoker. Alcohol: Not using alcohol. Drug Use: Not using drugs. Habits: Exercising regularly. Allergies - Sulfa Antibiotics Family History Cancer Heart disease Diabetes mellitus Review Of Systems Systemic: Not feeling tired, no recent weight loss, and no recent weight gain. No edema. Head: No headache and no sinus pain. Eyes: Vision problems. No vision problems. Glaucomatous visual field defect cataracts. No Cataracts, no Glasses/Contacts, and no Glaucoma. Otolaryngeal: No hearing loss and no tinnitus. No nasal symptoms. Cardiovascular: No chest pain or discomfort, no palpitations, no Hypertension, and no High Cholesterol. Pulmonary: No daytime asthma symptoms, no cough, and no chronic cough. No wheezing. Gastrointestinal: No heartburn and no abdominal pain. No Indigestion, no Peptic Ulcer, no GI Stomach Bleed, no Ulcers, and no Acid Reflux. Endocrine: No hot flashes, no muscle weakness, no Diabetes, no Hypothyroid, and no Hyperthyroid. Hematologic: No easy bleeding, no tendency for easy bruising, and no Anemia. Musculoskeletal: Arthritis and lower back pain. No soft tissue swelling and no localized joint pain. Neurological: No dizziness, no convulsions, and no numbness. Psychological: No anxiety and no emotional lability. Depression. No insomnia. Not crying for no reason. Skin: No dry skin. No Ulcers, no Scars, no rash, and no ulcers. Allergic and Immunologic: Complaint of seasonal allergic reaction. Assessment - Overweight Lumbar disc degeneration with a degenerative spondylolisthesis at the L4-5 level with a left L5 and S1 radicular component. Previous Tests Imaging: X-Ray: An X-ray was performed 06/28/2019 Giovanni @ [facility] 11/22/2020 Giovanni @ [facility] 01/02/2022 Giovanni @ [facility]. CT Scan: CT scan 11/02/19-Would not save into EXA. MRI Scan: An MRI was performed 06/08/2019 Giovanni Walker/ADEN @ [facility] 07/26/2022-MRI Giovanni @ [facility] . Therapy - Education and instructions. - Intervention and counseling on cessation of tobacco use. - Follow-up visit in one month. - Clinical summary provided to patient. - Referral to physician. - Pt received screening for fall risk. Counseling/Education - Tobacco use - Use of tobacco assessment performed - Intervention and counseling on cessation of tobacco use - Lose weight Plan - Patient screened for future fall risk: documentation of any fall with injury in past year Fall Risk Assessment: This patient has been identified as a fall risk. Balance/gait along with postural blood pressure, vision and home fall hazards have been assessed. Medications have been reviewed, and recommendations made with regard to contributing factors for future falls. Plan of care: Consideration of vitamin D supplementation along with balance and strength training with consideration for formal physical therapy has been discussed with the patient. Patient is already scheduled for another L4-5 epidural injection. As long as he is happy with how the injections or working for him then we will continue these. When he is ready to pursue anything further he will let us know. Notes This dictation was done with voice recognition software and may contain errors or omissions. Practice Management Use of tobacco assessment performed, pharmacologic therapy for cessation of tobacco use, and patient screened for future fall risk documentation of any fall with injury in past year Review of medications documented. Care Team - ALEX TOLENTINO MD - INTERLINE CLERK Health Reminders - Assess Tobacco Use satisfied 04/13/2024. - Follow Up Plan BMI Management satisfied 04/13/2024. - Smoking & Tobacco Cessation Intervention and Counseling satisfied 04/13/2024. * Progress note Date Encounter Last Documented by 03/03/2024 Follow Up Last documented on 03/03/2024; 2:59 PM, KEATON Butt; [facility] Active Problems & Conditions - Lower Back Pain Chief Complaint The Chief Complaint is: Lumbar pain. Referred Here Referred by self. History of Present Illness Mino Hsu is a 78 year old male. - Symptoms better laying on heating pad worse getting up. - Allergy list reviewed - Problem list reviewed - Medication reconciliation performed - Medication list reviewed - Previous history of new onset pain Injury is not work related or an automotive accident - Sharp pain Symptoms - Pain is constant (100% of the time) - Patient pain level from 1-10: 7 - History of Physical Therapy - History of Injections 08/01/2022-AISHWARYA L4-5 04/30/2022-AISHWARYA L4-5 02/06/2022-AISHWARYA L4-5 01/15/2022-GRACIE SI joint inj 03/16/2021-GRACIE SI joint inj 12/01/2020-GRACIE SI joint inj 10/08/2019-GRACIE SI JOINT INJ 09/16/2019- GRACIE SI joint injs. 07/28/19-AISHWARYA L45 05/21/2023 L4-5 AISHWARYA 09/04/2023 L4-5 AISHWARYA 12/11/2023 L4-5 AISHWARYA 70% FOR 2 MTHS - No previous treatment. - - Review of medications documented Patient returns prior to another lumbar epidural injection. He finds that the injections provide good relief for him. He will have 70% relief for a couple of months before the symptoms started to worsen. By the three-month tessie is usually down to 50% relief. Patient finds the injections very effective in treating his lower back hip and leg symptoms. He would like to continue these. He is still does his exercises. He is still very active. He would has a lot of activities around the home. Including cutting the grass and other home activities. The injections really allow good relief of his symptoms when he is participating with these activities. Current Medication - Albuterol Sulfate HFA 108 [...] pneumococcal pneumonia 2019. Diagnoses: Heart disease. Arthritis. Depression. Depression A fib. Surgical: - Heart surgery heart ablation-07/2021 heart stents - Back surgery - Total knee arthroplasty Social History Yes, current smoker. Current diet: No recent change in diet. Caffeine use: Caffeine use. Tobacco use: Current smoker. Alcohol: Not using alcohol. Drug Use: Not using drugs. Habits: Exercising regularly. Allergies - Sulfa Antibiotics Family History Cancer Heart disease Diabetes mellitus Review Of Systems Systemic: Not feeling tired, no recent weight loss, and no recent weight gain. No edema. Head: No headache and no sinus pain. Eyes: Vision problems. No vision problems. Glaucomatous visual field defect cataracts. No Cataracts, no Glasses/Contacts, and no Glaucoma. Otolaryngeal: No hearing loss and no tinnitus. No nasal symptoms. Cardiovascular: No chest pain or discomfort, no palpitations, no Hypertension, and no High Cholesterol. Pulmonary: No daytime asthma symptoms, no cough, and no chronic cough. No wheezing. Gastrointestinal: No heartburn and no abdominal pain. No Indigestion, no Peptic Ulcer, no GI Stomach Bleed, no Ulcers, and no Acid Reflux. Endocrine: No hot flashes, no muscle weakness, no Diabetes, no Hypothyroid, and no Hyperthyroid. Hematologic: No easy bleeding, no tendency for easy bruising, and no Anemia. Musculoskeletal: Arthritis and lower back pain. No soft tissue swelling and no localized joint pain. Neurological: No dizziness, no convulsions, and no numbness. Psychological: No anxiety and no emotional lability. Depression. No insomnia. Not crying for no reason. Skin: No dry skin. No Ulcers, no Scars, no rash, and no ulcers. Allergic and Immunologic: Complaint of seasonal allergic reaction. Physical Findings - Vitals taken 03/03/2024 01:[address] Height 70 in 60 - 80 Weight 217 lbs 12.8 oz 121 - 205 Body Mass Index 31.3 kg/m2 Body Surface Area 2.2 m2 Skin is unremarkable. Patient has good [...] when he is weight-bearing. Assessment - Overweight Lumbar disc degeneration with a degenerative spondylolisthesis at the L4-5 level. Previous Tests Imaging: X-Ray: An X-ray was performed 06/28/2019 Giovanni @ [facility] 11/22/2020 Giovanni @ [facility] 01/02/2022 Giovanni @ [facility]. CT Scan: CT scan 11/02/19-Would not save into EXA. MRI Scan: An MRI was performed 06/08/2019 Giovanni W/ADEN @ [facility] 07/26/2022-MRI Giovanni @ [facility] . Therapy - Education and instructions. - Intervention and counseling on cessation of tobacco use. - Follow-up visit in one month. - Clinical summary provided to patient. - Referral to physician. - Pt received screening for fall risk. Counseling/Education - Tobacco use - Use of tobacco assessment performed - Intervention and counseling on cessation of tobacco use - Lose weight Plan - Patient screened for future fall risk: documentation of any fall with injury in past year Fall Risk Assessment: This patient has been identified as a fall risk. Balance/gait along with postural blood pressure, vision and home fall hazards have been assessed. Medications have been reviewed, and recommendations made with regard to contributing factors for future falls. Plan of care: Consideration of vitamin D supplementation along with balance and strength training with consideration for formal physical therapy has been discussed with the patient. The epidural injections seem to be providing good relief of his symptoms. He would like to continue these for now. We did discuss the possibility of pursuing surgical intervention. She wants to pursue this he will let us know otherwise we will continue with the injections as long as they are helpful. Notes This dictation was done with voice recognition software and may contain errors or omissions. Practice Management Use of tobacco assessment performed, pharmacologic therapy for cessation of tobacco use, and patient screened for future fall risk documentation of any fall with injury in past year Review of medications documented. Care Team - ALEX TOLENTINO MD - INTERLINE CLERK Health Reminders - Assess BMI satisfied 03/03/2024. - Assess Tobacco Use satisfied 06/28/2019. - Follow Up Plan BMI Management satisfied 03/03/2024. - Smoking & Tobacco Cessation Intervention and Counseling satisfied 03/03/2024.
--- OUTSIDE RECORDS SUMMARY | 2025-01-04 14:38 | XMS_ITS | Clinical Summary ---
Author Organization [facility] Address [address] [address] Phone Care Team Providers Care Recycler Name Role Phone Shanna SUTTON, Pedro Unavailable [...] ctive Last Documented On 9 1:32PM ; [facility] Plan of Treatment - Patient screened for future fall risk: documentation of any fall with injury in past year - Last Documented On 11/22/2024 9:54AM ; [facility] Continue with the epidural injections for now. Will see him back in follow-up in a few months reassessment and likely reinjection. - Last Documented On 11/22/2024 9:54AM ; [facility] Fall Risk Assessment: This patient has been [...] therapy has been discussed with the patient. - Last Documented On 11/22/2024 9:54AM ; [facility] Pending Tests Order Diagnosis Results Due [facility] - [facility] MRI Lumbar Spine 07/31/22 JAM ES K SHERMAN PA-C Last Documented On 2 3:35PM ; [facility] Future Appointments Date Time Location [facility] [place] Follow Up 01/31/2025 1:15PM [facility] JANAK SHERMAN PA-C Last Documented On 5 3:21PM ; [facility] Epidural Steroid Injection 02/03/2025 1:30PM [facility] JANAK Lim CRNA Last Documented On 5 3:23PM ; [facility] Instructions to patient Intervention and counseling on cessation of tobacco use Last Documented On 5 2:09PM ; [facility] Lose weight Last Documented On 5 2:09PM ; [facility] Assessments Includes: Assessments from this encounter Findings - Overweight - Last Documented On 11/22/2024 9:54AM ; [facility] 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 - Last Documented On 11/22/2024 9:54AM ; [facility] Instructions Includes: Instructions from this encounter Instructions to patient Intervention and counseling on cessation of tobacco use Last Documented On 5 2:09PM ; [facility] Lose weight Last Documented On 5 2:09PM ; [facility] Medical Equipment - Implanted Devices Includes: Current Devices No Medical Equipment Recorded Medications Includes: Medications discussed during this encounter and other current Medications Discontinued / Stopped on this date on 07/17/2022 Prevagen 10 MG Oral Capsule Provider: Diagnosis: Last Documented On 5 2:09PM By Deangelo العلي ; [facility] Natural Fish Oil 1000 MG Oral Capsule Provider: Diagnosis: Last Documented On 5 2:09PM By Deangelo العلي ; [facility] Daily Fiber 0.52 GM Oral Capsule Prov ider: Diagnosis: Last Documented On 5 2:09PM By Deangelo العلي ; [facility] Xarelto 20 MG Oral Tablet Provider: Diagnosis: Last Documented On 5 2:09PM By Deangelo العلي ; [facility] diazePAM 5 MG Oral Tablet Provider: ST NANCY TOLENTINO MD Diagnosis: Last Documented On 5 2:08PM By Deangelo العلي ; [facility] Stiolto Respimat 2.5-2.5 MCG /ACT Inhalation Aerosol Solution Provider: ALEX TOLENTINO MD Diagnosis: Last Documented On 5 2:08PM By Deangelo العلي ; [facility] Albuterol Sulfate HFA 108 (9 0 Base) MCG/ACT Inhalation Aerosol Solution Provider: ALEX Benson MD Diagnosis: Last Documented On 5 2:08PM By Deangelo العلي ; [facility] Clopidogrel Bisulfate 75 MG Oral Tablet P rovider: ALEX TOLENTINO MD Diagnosis: Last Documented On 5 2:08PM By Deangelo العلي ; [facility] Ranolazine ER 500 MG Oral Tablet Extended Release 12 H our Provider: Diagnosis: Last Documented On 5 2:08PM By Deangelo العلي ; [facility] Pantoprazole Sodium 40 MG Or al Tablet Delayed Release Provider: ALEX TOLENTINO MD Diagnosis: Last Documented On 5 2:08PM By Deangelo العلي ; [facility] Carvedilol 3.125 MG Oral Tablet Provider: Diagnosis: Last Documented On 5 2:08PM By Deangelo العلي ; [facility] Tamsulosin HCl 0.4 MG Oral Capsule Provid er: CRISTOBAL CROSS MD Diagnosis: Last Documented On 5 2:08PM By Deangelo العلي ; [facility] oxyCODONE-Acetaminophen 5-325 MG Oral Tablet Provider: ALEX TOLENTINO MD Diagnosis: Last Documented On 5 2:08PM By Deangelo العلي ; [facility] DULoxetine HCl 60 MG Oral Ca psule Delayed Release Particles Provider: ALEX TOLENTINO MD Diagnosis: Last Documented On 5 2:08PM By Deangelo العلي ; [facility] DULoxetine HCl 30 MG Oral Ca psule Delayed Release Particles Provider: ALEX TOLENTINO MD Diagnosis: Last Documented On 5 2:08PM By Deangelo العلي ; [facility] Atorvastatin Calcium 10 MG Oral Tablet Pr ovider: ALEX TOLENTINO MD Diagnosis: Last Documented On 5 2:08PM By Deangelo العلي ; [facility] Clopidogrel Bisulfate 75 MG Oral Tablet Ally mason: ALEX TOLENTINO MD Diagnosis: Last Documented On 5 2:08PM By Deangelo العلي ; [facility] Current Medications (continue as prescribed) Jardiance 10 MG Oral Tablet 10/22/2024 Provider: Diagnosis: Last Documented On 5 2:09PM By Deangelo العلي ; [facility] Albuterol Sulfate HFA 108 (9 0 Base) MCG/ACT Inhalation Aerosol Solution 10/13/2024 Provider: Diagnosis: Last Documented On 5 2:09PM By Deangelo العلي ; [facility] Xarelto 15 MG Oral Tablet 10/13/2024 Provider: Diagnosis: Last Documented On 5 2:09PM By Deangelo العلي ; [facility] Clopidogrel Bisulfate 75 MG Oral Tablet 10/01/2024 Ally mason: Diagnosis: Last Documented On 5 2:09PM By Deangelo العلي ; [facility] Pantoprazole Sodium 40 MG Oral Tablet Delayed Release 10/01/2024 Provider: Diagnosis: Last Documented On 5 2:09PM By Deangelo العلي ; [facility] Ranolazine ER 1000 MG Oral Tablet Extended Release 12 Hour 10/01/2024 Provider: Diagnosis: Last Documented On 5 2:09PM By Deangelo العلي ; [facility] Tamsulosin HCl 0.4 MG Oral Capsule 09/21/2024 Provid er: Diagnosis: Last Documented On 5 2:09PM By Deangelo العلي ; [facility] Medications Administered Includes: Administered Medications from this encounter No Administered Medications Recorded Vital Signs Includes: Vital Signs from this encounter Vital Name 10/28/2024 02:25P Height (in) 70 Weight (lb) 210 Body Mass Index 30.1 Body Surface Area 2.1 Pain Level 5 Note: cd Last Documented: On 10/28/2024 2:25PM ; [facility] Results Includes: Results discussed during this encounter No Results Recorded For Specified Dates History of Present Illness Includes: History of Present Illness from this encounter HPI Mino Hsu is a 78 year old [...] fairly effective. He wants to continue these. Social History Description Last Updated No recent change in diet 07/05/2024 Last Documented On 5 2:09PM ; [facility] Yes, current smoker. 07/05/2024 Last Documented On 5 2:09PM ; [facility] Is a smoker 04/02/2022 Last Documented On 5 2:09PM ; [facility] Exercising regularly 11/22/2020 Last Documented On 5 2:09PM ; [facility] Not using alcohol 11/11/2019 Last Documented On 5 2:09PM ; [facility] Not using drugs 11/11/2019 Last Documented On 5 2:09PM ; [facility] Caffeine use 06/28/2019 Last Documented On 5 2:09PM ; [facility] Smoking Status Unknown Procedures and Surgical History Includes: Procedures from this encounter Procedures Code Diagnosis Performing Provider Service Location Service Date X-RAY EXAM OF LOWER SPINE 2-3 VIEWS LIMITED 64420 Spinal stenosis, lumbar region with neurogenic claudication KEATON SHERMAN PA-C [facility] 10/28/2024 Last Documented On 5 2:06PM ; [facility] an X-ray was performed 07/24/2024 LSPINE BGO [id number] 9 Last Documented On 5 2:09PM ; [facility] Surgical History Last Updated History of heart surgery heart ablation- 07/2021 ~heart stents ~ 07/17/2022 Last Documented On 5 2:09PM ; [facility] History of back surgery 06/28/2019 Last Documented On 5 2:09PM ; [facility] History of total knee arthroplasty 06/28 Last Documented On 5 2:09PM ; [facility] Medical History Includes: Medical History addressed during this encounter Description Last Updated Recent immunization for flu 06/20220 10/2021 Last Documented On 5 2:09PM ; [facility] A fib 07/17/2022 Last Documented On 5 2:09PM ; [facility] History of arthritis 01/02/2022 Last Documented On 5 2:09PM ; [facility] Depression 11/22/2020 Last Documented On 5 2:09PM ; [facility] Recent immunization for pneumococcal pne umonia 2020 11/22/2020 Last Documented On 5 2:09PM ; [facility] A recent injection 09/16/2019 - GRACIE SI joint injs. ~10/08/2019-GRACIE SI JOINT INJ ~07/28/19-AISHWARYA L45 11/11/2019 Last Documented On 5 2:09PM ; [facility] Arthritic joint problems 06/28/2019 Last Documented On 5 2:09PM ; [facility] History of depression 06/28/2019 Last Documented On 5 2:09PM ; [facility] History of heart disease 06/28/2019 Last Documented On 5 2:09PM ; [facility] Family History Includes: Family History addressed during this encounter Description Last Updated Diabetes mellitus 01/02/2022 Last Documented On 5 2:09PM ; [facility] Family history of cancer 06/28/2019 Last Documented On 5 2:09PM ; [facility] Family history of heart disease 06/28/20 19 Last Documented On 5 2:09PM ; [facility] Review of Systems Includes: Review of Systems [...] ctive Last Documented On 5 2:09PM ; [facility] Encounters Encounter Provider Location Date Check-In Time Check-Out Time Diagnosis Follow Up KEATON SHERMAN PA-C [facility] 5 1:51PM 2:32PM Overweight Insurance Includes: Active Insurance Policies Plan Name Member ID Group # Subscriber Relationship Effect amy Dates 1 - Medicare Part B [facility] [id number] Mino Hsu Self 10/16/2011 - Unknown 2 - BS [facility] [id number] Mino Hsu Self 07/22/2016 - Unknown Clinical Notes Includes: Clinical Notes from this encounter * Progress note Date Encounter Last Documented by 10/28/2024 Follow Up Last documented on 11/22/2024; 9:54 AM, KEATON Butt; [facility] Active Problems & Conditions - Lower Back [...] Previous Tests Imaging: X-Ray: X-ray 07/24/2024 LSPINE BGO. Counseling/Education - Tobacco use - Use of [...] Care Team - ALEX TOLENTINO MD - HELICOPTER REPAIRER Health Reminders - Assess BMI satisfied 10/28/2024. - Assess Tobacco Use satisfied 10/28/2024. - Follow Up Plan BMI Management satisfied 10/28/2024. - Smoking & Tobacco Cessation Intervention and Counseling satisfied 10/28/2024.
--- OUTSIDE RECORDS SUMMARY | 2025-01-04 14:38 | XMS_ITS | Clinical Summary ---
Author Organization [facility] Address [address] [place] [address] Phone Care Team Providers Care County Tax Assessor Name Role Phone Shanna SUTTON, Pedro TOLENTINO MD, ALEX Primary Care Provider [phone] Reason for Visit and Chief Complaint Epidural Steroid Injection Problems Includes: Problems addressed during this encounter and other active Problems All Visits Onset Date Resolved Date Provider Condition S tatus Lower Back Pain 06/28/2019 Pedro Otero MD A ctive Last Documented On 9 1:32PM ; [facility] Plan of Treatment Future Appointments Date Time Location [facility] [place] Follow Up 01/31/2025 1:15PM [facility] JANAK SHERMAN PA-C Last Documented On 5 3:21PM ; [facility] Epidural Steroid Injection 02/03/2025 1:30PM [facility] [place] 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 [employer] Last Documented On 5 3:23PM ; [facility] Assessments Includes: Assessments from this encounter No Assessments Recorded Medical Equipment - Implanted Devices Includes: Current Devices No Medical Equipment Recorded Medications Includes: Medications discussed during this encounter and other current Medications Current Medications (continue as prescribed) Jardiance 10 MG Oral Tablet 10/22/2024 Provider: Diagnosis: Last Documented On 5 2:09PM By Deangelo العلي ; [facility] Albuterol Sulfate HFA 108 (9 0 Base) MCG/ACT Inhalation Aerosol Solution 10/13/2024 Provider: Diagnosis: Last Documented On 5 2:09PM By Deangelo العلي ; [facility] Xarelto 15 MG Oral Tablet 10/13/2024 Provider: Diagnosis: Last Documented On 5 2:09PM By Deangelo العلي ; [facility] Clopidogrel Bisulfate 75 MG Oral Tablet 10/01/2024 Ally dalalder: Diagnosis: Last Documented On 5 2:09PM By Deangelo العلي ; [facility] Pantoprazole Sodium 40 MG Oral Tablet Delayed Release 10/01/2024 Provider: Diagnosis: Last Documented On 5 2:09PM By Deangelo العلي ; [facility] Ranolazine ER 1000 MG Oral Tablet Extended Release 12 Hour 10/01/2024 Provider: Diagnosis: Last Documented On 5 2:09PM By Deangelo العلي ; [facility] Tamsulosin HCl 0.4 MG Oral Capsule 09/21/2024 Provid er: Diagnosis: Last Documented On 5 2:09PM By Deangelo العلي ; [facility] Medications Administered Includes: Administered Medications from this encounter No Administered Medications Recorded Results Includes: Results discussed during this encounter No Results Recorded For Specified Dates History of Present Illness Includes: History of Present Illness from this encounter No History of Present Illness Recorded Social History No Social History Recorded - Smoking Status Unknown Procedures and Surgical History Includes: Procedures from this encounter Procedures Code Diagnosis Performing Provider Service Location Service Date Lumbar epidural 57190 Spinal stenosis, lumbar region with neurogenic claudication [place] CRNA [facility] 07/21/2024 Last Documented On 4 8:01AM ; [facility] Triamcinolone/Kenalog, 10mg per cc [id number] Spinal stenosis, lumbar region with neurogenic claudication [place] CRNA [facility] 07/21/2024 Last Documented On 4 8:01AM ; [facility] Medical History Includes: Medical History addressed during this encounter No Medical History Recorded Family History Includes: Family History addressed during this encounter No Family History Recorded Review of Systems Includes: Review of Systems from this encounter No Review of Systems Recorded Mental Status Includes: Mental Status from this encounter No Mental Status Recorded Functional Status Includes: Functional Status from this encounter No Functional Status Recorded Physical Exam Includes: Physical Exam from this encounter No Physical Exam Recorded Allergies Includes: Active Allergies Substance Type Reaction Onset Date Resolved Date Statu s Sulfa Antibiotics Allergy 06/28/2019 A ctive Last Documented On 5 2:09PM ; [facility] Encounters Encounter Provider Location Date Check-In Time Check-Out Time Diagnosis Epidural Steroid Injection [place] CRNA [facility] 07/21/20 24 1:48PM 2:44PM Insurance Includes: Active Insurance Policies Plan Name Member ID Group # Subscriber Relationship Effect amy Dates 1 - Medicare Part B [facility] [id number] Mino Hsu Self 10/16/2011 - Unknown 2 - BCBS [facility] [id number] Mino Hsu Self 07/22/2016 - Unknown Clinical Notes Includes: Clinical Notes from this encounter No Clinical Notes Recorded
--- OUTSIDE RECORDS SUMMARY | 2025-01-04 14:38 | XMS_ITS ---
Care Plan - [facility], [facility] Created on: January 04, 2025 Mino Hsu : 1945 Sex: Male Author Organization [facility] Address [address] [place] [address] Phone Care Team Providers Care Senior Technical Program Manager Name Role Phone Shanna SUTTON, Pedro Unavailable [phone] ALEX TOLENTINO MD Primary Care Provider [phone]
--- OUTSIDE RECORDS SUMMARY | 2025-01-04 14:38 | XMS_ITS | Clinical Summary ---
Author Organization [facility] Address [address] [place] [address] Phone Care Team Providers Care Liquor Merchant Name Role Phone Shanna SUTTON, Pedro TOLENTINO MD, ALEX Primary Care Provider [phone] Reason for Visit and Chief Complaint Epidural Steroid Injection Problems Includes: Problems addressed during this encounter and other active Problems All Visits Onset Date Resolved Date Provider Condition S tatus Lower Back Pain 06/28/2019 Pedro Otero MD A ctive Last Documented On 9 1:32PM ; [facility] Plan of Treatment Future Appointments Date Time Location [facility] [place] Follow Up 01/31/2025 1:15PM [facility] JANAK SHERMAN PA-C Last Documented On 5 3:21PM ; [facility] Epidural Steroid Injection 02/03/2025 1:30PM [facility] [place] Lim REFRACTORY REPAIRER Last Documented On 5 3:23PM ; [facility] Assessments Includes: Assessments from this encounter No Assessments Recorded Medical Equipment - Implanted Devices Includes: Current Devices No Medical Equipment Recorded Medications Includes: Medications discussed during this encounter and other current Medications Current Medications (continue as prescribed) Jardiance 10 MG Oral Tablet 10/22/2024 Provider: Diagnosis: Last Documented On 5 2:09PM By Deangelo العلي ; [facility] Albuterol Sulfate HFA 108 (9 0 Base) MCG/ACT Inhalation Aerosol Solution 10/13/2024 Provider: Diagnosis: Last Documented On 5 2:09PM By Deangelo العلي ; [facility] Xarelto 15 MG Oral Tablet 10/13/2024 Provider: Diagnosis: Last Documented On 5 2:09PM By Deangelo العلي ; [facility] Clopidogrel Bisulfate 75 MG Oral Tablet 10/01/2024 Ally dalalder: Diagnosis: Last Documented On 5 2:09PM By Deangelo العلي ; [facility] Pantoprazole Sodium 40 MG Oral Tablet Delayed Release 10/01/2024 Provider: Diagnosis: Last Documented On 5 2:09PM By Deangelo العلي ; [facility] Ranolazine ER 1000 MG Oral Tablet Extended Release 12 Hour 10/01/2024 Provider: Diagnosis: Last Documented On 5 2:09PM By Deangelo العلي ; [facility] Tamsulosin HCl 0.4 MG Oral Capsule 09/21/2024 Provid er: Diagnosis: Last Documented On 5 2:09PM By Deangelo العلي ; [facility] Medications Administered Includes: Administered Medications from [...] Provider Service Location Service Date Lumbar epidural 90365 Spinal stenosis, lumbar region with neurogenic claudication [place] CRNA [facility] 11/03/2024 Last Documented On 5 2:22PM ; [facility] Triamcinolone/Kenalog, 10mg per cc [id number] Spinal stenosis, lumbar region with neurogenic claudication [place] CRNA [facility] 11/03/2024 Last Documented On 5 2:22PM ; [facility] Medical History Includes: Medical History addressed [...] ctive Last Documented On 5 2:09PM ; [facility] Encounters Encounter Provider Location Date Check-In Time Check-Out Time Diagnosis Epidural Steroid Injection [place] CRNA [facility] 11/03/19 25 2:03PM 3:19PM Insurance Includes: Active Insurance Policies Plan Name Member ID Group # Subscriber Relationship Effect amy Dates 1 - Medicare Part B [facility] [id number] Mino Hsu Self 10/16/2011 - Unknown 2 - BCBS [facility] [id number] Mino Hsu Self 07/22/2016 - Unknown Clinical Notes Includes: Clinical Notes from this encounter No Clinical Notes Recorded
--- OUTSIDE RECORDS SUMMARY | 2025-01-04 14:39 | XMS_ITS | Clinical Summary ---
Author Organization [facility] , [facility] Address [address] [place] [address] Phone Care Team Providers Care Federal Agent Name Role Phone Shanna SUTTON, Pedro TOLENTINO MD, ALEX Primary Care Provider [phone] Reason for Visit and Chief Complaint Epidural Steroid Injection Problems Includes: Problems addressed during this encounter and other active Problems All Visits Onset Date Resolved Date Provider Condition S tatus Lower Back Pain 06/28/2019 Pedro Otero MD A ctive Last Documented On 9 1:32PM ; [facility] Plan of Treatment Future Appointments Date Time Location [facility] [place] Follow Up 01/31/2025 1:15PM [facility] JANAK SHERMAN PA-C Last Documented On 5 3:21PM ; [facility] Epidural Steroid Injection 02/03/2025 1:30PM [facility] [place] [employer] Last Documented On 5 3:23PM ; [facility] Assessments Includes: Assessments from this encounter No Assessments Recorded Medical Equipment - Implanted Devices Includes: Current Devices No Medical Equipment Recorded Medications Includes: Medications discussed during this encounter and other current Medications Current Medications (continue as prescribed) Jardiance 10 MG Oral Tablet 10/22/2024 Provider: Diagnosis: Last Documented On 5 2:09PM By Deangelo العلي ; [facility] Albuterol Sulfate HFA 108 (9 0 Base) MCG/ACT Inhalation Aerosol Solution 10/13/2024 Provider: Diagnosis: Last Documented On 5 2:09PM By Deangelo العلي ; [facility] Xarelto 15 MG Oral Tablet 10/13/2024 Provider: Diagnosis: Last Documented On 5 2:09PM By Deangelo العلي ; [facility] Clopidogrel Bisulfate 75 MG Oral Tablet 10/01/2024 P mulugetader: Diagnosis: Last Documented On 5 2:09PM By Deangelo العلي ; [facility] Pantoprazole Sodium 40 MG Oral Tablet Delayed Release 10/01/2024 Provider: Diagnosis: Last Documented On 5 2:09PM By Deangelo العلي ; [facility] Ranolazine ER 1000 MG Oral Tablet Extended Release 12 Hour 10/01/2024 Provider: Diagnosis: Last Documented On 5 2:09PM By Deangelo العلي ; [facility] Tamsulosin HCl 0.4 MG Oral Capsule 09/21/2024 Provid er: Diagnosis: Last Documented On 5 2:09PM By Deangelo العلي ; [facility] Medications Administered Includes: Administered Medications from this encounter No Administered Medications Recorded Results Includes: Results discussed during this encounter No Results Recorded For Specified Dates History of Present Illness Includes: History of Present Illness from this encounter No History of Present Illness Recorded Social History No Social History Recorded - Smoking Status Unknown Medical History Includes: Medical History addressed during [...] ctive Last Documented On 5 2:09PM ; [facility] Encounters Encounter Provider Location Date Check-In Time Check-Out Time Diagnosis Epidural Steroid Injection [place] CRNA 07/21/2024 9:44AM 11:59PM Insurance Includes: Active Insurance Policies Plan Name Member ID Group # Subscriber Relationship Effect amy Dates 1 - Medicare Part B [facility] [id number] Mino Hsu Self 10/16/2011 - Unknown 2 - [employer] [place] [id number] Mino Hsu Self 07/22/2016 - Unknown Clinical Notes Includes: Clinical Notes from this encounter No Clinical Notes Recorded
--- OUTSIDE RECORDS SUMMARY | 2025-01-04 14:39 | XMS_ITS | Data Portability ---
Author Organization [facility] ALAYNA Dennison CLAYTON CLOSED Address [address] [place] [address] Care Team Providers Care Physical Testing Supervisor Name Role Phone ALEX TOLENTINO Referring Provider Assessment No assessment recorded. Plan of Treatment Reminders Order Date Submit Date Provider Last Modified By Organization Details Last Modified Time Details Appointments None recorded. Lab urinalysis panel, auto [address] [facility], [address], [address], [place], [address], 2 14:48:50 urinalysis, dipstick, auto [address] [facility], [address], [address], [place], [address], 9 16:58:01 culture, urine 2018 019 [facility], [address] [place] [address], [address], 9 10:33:25 urinalysis, dipstick, auto [address] [facility], [address], [address], [place], [address], 9 15:01:05 culture, urine 2018 019 [facility], [address] [facility], [place], [address], 09:56:48 Referral None recorded. Procedures None recorded. Surgeries None recorded. Imaging None recorded. Medication Orders None recorded. Patient TargetsNo targets recorded. Patient Instructions Encounter Date Encounter Id Patient Instructions Last Modified By Organization Details Last Modified Time 03/29/2019 [id number] frequent urination: care instructions [email or web address] Not available 03/29/2019 12:50:18 04/02/2019 [id number] Urinary Tract Infections (UTI) in Men: Care Instructions [email or web address] Not available 04/02/2019 15:12:19 06/08/2019 [id number] Spent {{25# }} total minutes with the patient today. Greater than 50% of this time was spent counseling/coordi nation of care as documented in my assessment and plan above. [email or web address] Not available 06/08/2019 14:20:26 Reason for Referral None Reported. Results Created Date Observation Date Name Description Value Unit Range Abnormal Flag Note LastModifiedBy Organization Detail LastModifiedTime 04/02/2004/02/2019 urina lysis , dipst ick, auto Unknown Analyte Yellow Not Available [facility] [address], [place], [address], 04/02/2019 13:51:50 04/02/2004/02/2019 urina lysis , dipst ick, auto Unknown Analyte Clear Not Available [facility] [address] [place] [address] [address], [place], [address], 04/02/2019 13:51:50 04/02/2004/02/2019 urina lysis , dipst ick, auto Unknown Analyte 1.010 Not Available [facility] [address] [place] [address] [address], [place], [address], 04/02/2019 13:51:50 04/02/2004/02/2019 urina lysis , dipst ick, auto Unknown Analyte 1.003 - 1.035 Not Available [facility] [address], [place], [address], 04/02/2019 13:51:50 04/02/2004/02/2019 urina lysis , dipst ick, auto Unknown Analyte 6.5 Not Available [facility] [address] [facility] [address], [place], [address], 04/02/2019 13:51:50 04/02/2004/02/2019 urina lysis , dipst ick, auto Unknown Analyte 5.0 - 8.0 Not Available [facility] [address] [facility] [address], [place], [address], 04/02/2019 13:51:50 04/02/2004/02/2019 urina lysis , dipst ick, auto Unknown Analyte Negati ve Not Available [facility] [address] [facility] [address], [place], [address], 04/02/2019 13:51:50 04/02/2004/02/2019 urina lysis , dipst ick, auto Unknown Analyte Negati ve Not Available [facility] [address] [facility] [address], [place], [address], 04/02/2019 13:51:50 04/02/2004/02/2019 urina lysis , dipst ick, auto Unknown Analyte Negati ve Not Available [facility] [address] [facility] [address], [place], [address], 04/02/2019 13:51:50 04/02/2004/02/2019 urina lysis , dipst ick, auto Unknown Analyte Negati ve Not Available [facility] [address], [place], [address], 04/02/2019 13:51:50 04/02/2004/02/2019 urina lysis , dipst ick, auto Unknown Analyte Negtiv e Not Available [facility] [address], [place], [address], 04/02/2019 13:51:50 04/02/2004/02/2019 urina lysis , dipst ick, auto Unknown Analyte Negati ve - Trace Not Available [facility] [address], [place], [address], 04/02/2019 13:51:50 04/02/2004/02/2019 urina lysis , dipst ick, auto Unknown Analyte Normal Not Available [facility] [address], [place], [address], 04/02/2019 13:51:50 04/02/2004/02/2019 urina lysis , dipst ick, auto Unknown Analyte Normal Not Available [facility] [address], [place], [address], 04/02/2019 13:51:50 04/02/2004/02/2019 urina lysis , dipst ick, auto Unknown Analyte Negati ve Not Available [facility] [address], [place], [address], 04/02/2019 13:51:50 04/02/2004/02/2019 urina lysis , dipst ick, auto Unknown Analyte Negati ve Not Available [facility] [address], [place], [address], 04/02/2019 13:51:50 04/02/2004/02/2019 urina lysis , dipst ick, auto Unknown Analyte Normal Not Available [facility] [address], [place], [address], 04/02/2019 13:51:50 04/02/2004/02/2019 urina lysis , dipst ick, auto Unknown Analyte Normal - 1mg/dl Not Available [facility] [address] [facility] [address], [place], [address], 04/02/2019 13:51:50 04/02/2004/02/2019 urina lysis , dipst ick, auto Unknown Analyte Negati ve Not Available [facility] [address], [place], [address], 04/02/2019 13:51:50 04/02/2004/02/2019 urina lysis , dipst ick, auto Unknown Analyte Negati ve Not Available [facility] [address] [facility] [address], [place], [address], 04/02/2019 13:51:50 04/02/2004/02/2019 urina lysis , dipst ick, auto Unknown Analyte Negati ve Not Available [facility] [address] [facility] [address], [place], [address], 04/02/2019 13:51:50 04/02/20 19 04/02/2019 urina lysis , dipst ick, auto Unknown Analyte Negati ve Not Available [facility] [address], [place], [address], 04/02/2019 13:51:50 04/02/2004/02/2019 urina lysis , dipst ick, auto Unknown Analyte Clean Catch Not Available [facility] [address], [place], [address], 04/02/2019 13:51:50 04/02/2004/02/2019 urina lysis , dipst ick, auto Unknown Analyte Automa minesh Not Available [facility] [address], [place], [address], 04/02/2019 13:51:50 03/29/2003/29/2019 urina lysis , dipst ick, auto Unknown Analyte [place] Not Available [facility] [address], [place], [address], 03/29/2019 12:28:20 03/29/2003/29/2019 urina lysis , dipst ick, auto Unknown Analyte Clear Not Available [facility] [address], [place], [address], 03/29/2019 12:28:20 03/29/2003/29/2019 urina lysis , dipst ick, auto Unknown Analyte 1.020 Not Available [facility] [address], [place], [address], 03/29/2019 12:28:20 03/29/20 19 03/29/2019 urina lysis , dipst ick, auto Unknown Analyte 1.003 - 1.035 Not Available [facility] [address], [place], [address], 03/29/2019 12:28:20 03/29/20 19 03/29/2019 urina lysis , dipst ick, auto Unknown Analyte 5.0 Not Available [facility] [address], [place], [address], 03/29/2019 12:28:20 03/29/20 19 03/29/2019 urina lysis , dipst ick, auto Unknown Analyte 5.0 - 8.0 Not Available [facility] [address] [facility] [address], [place], [address], 03/29/2019 12:28:20 03/29/2003/29/2019 urina lysis , dipst ick, auto Unknown Analyte 500 Сергей/ul (++) Not Available [facility] [address] [facility] [address], [place], [address], 03/29/2019 12:28:20 03/29/2003/29/2019 urina lysis , dipst ick, auto Unknown Analyte Negati ve Not Available [facility] [address] [facility] [address], [place], [address], 03/29/2019 12:28:20 03/29/2003/29/2019 urina lysis , dipst ick, auto Unknown Analyte Positi ve Not Available [facility] [address] [facility] [address], [place], [address], 03/29/2019 12:28:20 03/29/20 19 03/29/2019 urina lysis , dipst ick, auto Unknown Analyte Negati ve Not Available [facility] [address], [place], [address], 03/29/2019 12:28:20 03/29/2003/29/2019 urina lysis , dipst ick, auto Unknown Analyte 500 mg/dl (+++) Not Available [facility] [address], [place], [address], 03/29/2019 12:28:20 03/29/20 19 03/29/2019 urina lysis , dipst ick, auto Unknown Analyte Negati ve - Trace Not Available [facility] [address], [place], [address], 03/29/2019 12:28:20 03/29/20 19 03/29/2019 urina lysis , dipst ick, auto Unknown Analyte Normal Not Available [facility] [address], [place], [address], 03/29/2019 12:28:20 03/29/2003/29/2019 urina lysis , dipst ick, auto Unknown Analyte Normal Not Available [facility] [address], [place], [address], 03/29/2019 12:28:20 03/29/2003/29/2019 urina lysis , dipst ick, auto Unknown Analyte Negati ve Not Available [facility] [address], [place], [address], 03/29/2019 12:28:20 03/29/20 19 03/29/2019 urina lysis , dipst ick, auto Unknown Analyte Negati ve Not Available [facility] [address], [place], [address], 03/29/2019 12:28:20 03/29/20 19 03/29/2019 urina lysis , dipst ick, auto Unknown Analyte >12 mg/dl Not Available [facility] [address], [place], [address], 03/29/2019 12:28:20 03/29/20 19 03/29/2019 urina lysis , dipst ick, auto Unknown Analyte Normal - 1mg/dl Not Available [facility] [address], [place], [address], 03/29/2019 12:28:20 03/29/20 19 03/29/2019 urina lysis , dipst ick, auto Unknown Analyte 6 mg/dl (+++) Not Available [facility] [address], [place], [address], 03/29/2019 12:28:20 03/29/2003/29/2019 urina lysis , dipst ick, auto Unknown Analyte Negati ve Not Available [facility] [address], [place], [address], 03/29/2019 12:28:20 03/29/20 19 03/29/2019 urina lysis , dipst ick, auto Unknown Analyte 50 Kandice/ul Not Available [facility] [address], [place], [address], 03/29/2019 12:28:20 03/29/20 19 03/29/2019 urina lysis , dipst ick, auto Unknown Analyte Negati ve Not Available [facility] [address], [place], [address], 03/29/2019 12:28:20 03/29/20 19 03/29/2019 urina lysis , dipst ick, auto Unknown Analyte Clean Catch Not Available [facility] [address] [facility] [address], [place], [address], 03/29/2019 12:28:20 03/29/20 19 03/29/2019 urina lysis , dipst ick, auto Unknown Analyte Automa minesh Not Available [facility] [address] [facility] [address], [place], [address], 03/29/2019 12:28:20 03/15/20 19 03/15/2019 urina lysis , dipst ick, auto Unknown Analyte [place] Not Available [facility] [address] [place] [address] [address], [place], [address], 03/15/2019 14:05:30 03/15/20 19 03/15/2019 urina lysis , dipst ick, auto Unknown Analyte Clear Not Available [facility] [address] [facility] [address], [place], [address], 03/15/2019 14:05:30 03/15/20 19 03/15/2019 urina lysis , dipst ick, auto Unknown Analyte 1.015 Not Available [facility] [address], [place], [address], 03/15/2019 14:05:30 03/15/20 19 03/15/2019 urina lysis , dipst ick, auto Unknown Analyte 1.003 - 1.035 Not Available [facility] [address] [facility] [address], [place], [address], 03/15/2019 14:05:30 03/15/2003/15/2019 urina lysis , dipst ick, auto Unknown Analyte 6.5 Not Available [facility] [address], [place], [address], 03/15/2019 14:05:30 03/15/2003/15/2019 urina lysis , dipst ick, auto Unknown Analyte 5.0 - 8.0 Not Available [facility] [address] [place] [address] [address], [place], [address], 03/15/2019 14:05:30 03/15/2003/15/2019 urina lysis , dipst ick, auto Unknown Analyte 500 Сергей/ul (++) Not Available [facility] [address] [place] [address] [address], [place], [address], 03/15/2019 14:05:30 03/15/2003/15/2019 urina lysis , dipst ick, auto Unknown Analyte Negati ve Not Available [facility] [address] [place] [address] [address], [place], [address], 03/15/2019 14:05:30 03/15/2003/15/2019 urina lysis , dipst ick, auto Unknown Analyte Positi ve Not Available [facility] [address], [place], [address], 03/15/2019 14:05:30 03/15/20 19 03/15/2019 urina lysis , dipst ick, auto Unknown Analyte Negati ve Not Available [facility] [address], [place], [address], 03/15/2019 14:05:30 03/15/2003/15/2019 urina lysis , dipst ick, auto Unknown Analyte 500 mg/dl (+++) Not Available [facility] [address], [place], [address], 03/15/2019 14:05:30 03/15/2003/15/2019 urina lysis , dipst ick, auto Unknown Analyte Negati ve - Trace Not Available [facility] [address], [place], [address], 03/15/2019 14:05:30 03/15/2003/15/2019 urina lysis , dipst ick, auto Unknown Analyte Normal Not Available [facility] [address], [place], [address], 03/15/2019 14:05:30 03/15/2003/15/2019 urina lysis , dipst ick, auto Unknown Analyte Normal Not Available [facility] [address], [place], [address], 03/15/2019 14:05:30 03/15/2003/1503/15/2019 urina lysis , dipst ick, auto Unknown Analyte Negati ve Not Available [facility] [address], [place], [address], 03/15/2019 14:05:30 03/15/20 19 03/15/2019 urina lysis , dipst ick, auto Unknown Analyte Negati ve Not Available [facility] [address], [place], [address], 03/15/2019 14:05:30 03/15/2003/15/2019 urina lysis , dipst ick, auto Unknown Analyte >12 mg/dl Not Available [facility] [address], [place], [address], 03/15/2019 14:05:30 03/15/20 19 03/15/2019 urina lysis , dipst ick, auto Unknown Analyte Normal - 1mg/dl Not Available [facility] [address], [place], [address], 03/15/2019 14:05:30 03/15/20 19 03/15/2019 urina lysis , dipst ick, auto Unknown Analyte 3 mg/dl (++) Not Available [facility] [address], [place], [address], 03/15/2019 14:05:30 03/15/20 19 03/15/2019 urina lysis , dipst ick, auto Unknown Analyte Negati ve Not Available [facility] [address] [place] [address] [address], [place], [address], 03/15/2019 14:05:30 03/15/20 19 03/15/2019 urina lysis , dipst ick, auto Unknown Analyte 50 Kandice/ul Not Available [facility] [address], [place], [address], 03/15/2019 14:05:30 03/15/2003/15/2019 urina lysis , dipst ick, auto Unknown Analyte Negati ve Not Available [facility] [address] [facility] [address], [place], [address], 03/15/2019 14:05:30 03/15/2003/15/2019 urina lysis , dipst ick, auto Unknown Analyte Clean Catch Not Available [facility] [address] [facility] [address], [place], [address], 03/15/2019 14:05:30 03/15/2003/15/2019 urina lysis , dipst ick, auto Unknown Analyte Automa minesh Not Available [facility] [address] [place] [address] [address], [place], [address], 03/15/2019 14:05:30 03/03/20 19 03/03/2019 urina lysis , dipst ick, auto Unknown Analyte [place] Not Available [facility] [address] [place] [address] [address], [place], [address], 03/03/2019 13:37:08 03/03/2003/03/2019 urina lysis , dipst ick, auto Unknown Analyte Hazy Not Available [facility] [address] [place] [address] [address], [place], [address], 03/03/2019 13:37:08 03/03/20 19 03/03/2019 urina lysis , dipst ick, auto Unknown Analyte 1.020 Not Available [facility] [address], [place], [address], 03/03/2019 13:37:08 03/03/20 19 03/03/2019 urina lysis , dipst ick, auto Unknown Analyte 1.003 - 1.035 Not Available [facility] [address] [facility] [address], [place], [address], 03/03/2019 13:37:08 03/03/20 19 03/03/2019 urina lysis , dipst ick, auto Unknown Analyte 5.0 Not Available [facility] [address] [facility] [address], [place], [address], 03/03/2019 13:37:08 03/03/20 19 03/03/2019 urina lysis , dipst ick, auto Unknown Analyte 5.0 - 8.0 Not Available [facility] [address] [facility] [address], [place], [address], 03/03/2019 13:37:08 03/03/20 19 03/03/2019 urina lysis , dipst ick, auto Unknown Analyte Negati ve Not Available [facility] [address] [facility] [address], [address], 03/03/2019 13:37:08 03/03/20 19 03/03/2019 urina lysis , dipst ick, auto Unknown Analyte Negati ve Not Available [facility] [address] [facility] [address], [address], 03/03/2019 13:37:08 03/03/20 19 03/03/2019 urina lysis , dipst ick, auto Unknown Analyte Positi ve Not Available [facility] [address], [place], [address], 03/03/2019 13:37:08 03/03/20 19 03/03/2019 urina lysis , dipst ick, auto Unknown Analyte Negati ve Not Available [facility] [address], [place], [address], 03/03/2019 13:37:08 03/03/20 19 03/03/2019 urina lysis , dipst ick, auto Unknown Analyte 500 mg/dl (+++) Not Available [facility] [address], [place], [address], 03/03/2019 13:37:08 03/03/20 19 03/03/2019 urina lysis , dipst ick, auto Unknown Analyte Negati ve - Trace Not Available [facility] [address], [place], [address], 03/03/2019 13:37:08 03/03/2003/03/2019 urina lysis , dipst ick, auto Unknown Analyte Normal Not Available [facility] [address], [place], [address], 03/03/2019 13:37:08 03/03/20 19 03/03/2019 urina lysis , dipst ick, auto Unknown Analyte Normal Not Available [facility] [address], [place], [address], 03/03/2019 13:37:08 03/03/20 19 03/03/2019 urina lysis , dipst ick, auto Unknown Analyte Negati ve Not Available [facility] [address], [place], [address], 03/03/2019 13:37:08 03/03/20 19 03/03/2019 urina lysis , dipst ick, auto Unknown Analyte Negati ve Not Available [facility] [address], [place], [address], 03/03/2019 13:37:08 03/03/20 19 03/03/2019 urina lysis , dipst ick, auto Unknown Analyte 8 mg/dl Not Available [facility] [address], [place], [address], 03/03/2019 13:37:08 03/03/20 19 03/03/2019 urina lysis , dipst ick, auto Unknown Analyte Normal - 1mg/dl Not Available [facility] [address] [place] [address] [address], [place], [address], 03/03/2019 13:37:08 03/03/20 19 03/03/2019 urina lysis , dipst ick, auto Unknown Analyte 3 mg/dl (++) Not Available [facility] [address], [place], [address], 03/03/2019 13:37:08 03/03/20 19 03/03/2019 urina lysis , dipst ick, auto Unknown Analyte Negati ve Not Available [facility] [address] [facility] [address], [place], [address], 03/03/2019 13:37:08 03/03/20 19 03/03/2019 urina lysis , dipst ick, auto Unknown Analyte 250 Kandice/ul Not Available [facility] [address] [facility] [address], [place], [address], 03/03/2019 13:37:08 03/03/20 19 03/03/2019 urina lysis , dipst ick, auto Unknown Analyte Negati ve Not Available [facility] [address] [facility] [address], [place], [address], 03/03/2019 13:37:08 03/03/20 19 03/03/2019 urina lysis , dipst ick, auto Unknown Analyte Clean Catch Not Available [facility] [address] [facility] [address], [place], [address], 03/03/2019 13:37:08 03/03/20 19 03/03/2019 urina lysis , dipst ick, auto Unknown Analyte Automa minesh Not Available [facility] [address] [place] [address] [address], [place], [address], 03/03/2019 13:37:08 03/15/20 19 03/15/2019 cultu re, urine results [facility] e: CCSRUTHI Colle cted: 03/15 14:46 Site: Recei zaire : 03/15 20:15 URINE SCREE N(CUL TURE) FINAL 03/17 12:24 03/17 No growt h day 2. Not Available [facility] [place], [address], 03/17/2019 12:24:32 03/29/20 19 03/29/2019 cultu re, urine results Sourc e: ALONSO Egan cted: 03/29 12:29 Site: Maryam zaire : 03/29 14:10 URINE SCREE N(CUL TURE) FINAL 03/31 15:00 03/31 No growt h day 2. Not Available [facility] [address] [place] [address], [address], 03/31/2019 15:00:56 04/02/20 19 04/02/2019 cultu re, urine results Sourc e: ALONSO Egan cted: 04/02 13:52 Site: Maryam zaire : 04/02 20:07 URINE SCREE N(CUL TURE) FINAL 04/05 10:45 04/03 COLON Y COUNT : > 100,0 00 CFU/M L Proba ble Gram Negat amy Bacil eri. ID and sensi tivit y in progr ess. 04/05 See [facility] Resul t(s) Below ISOLA KELLIE AND SENSI TIVIT Y RESUL TS [facility] 01 [facility] __ [facility] ORG# 01 ANTIB IOTIC S DARREL INT __ Amox/ K Clav' ate(c ) <=8/4 S Amp/S ulbac martinez(c ) <=8/4 S Ampic illin <=8 S Cefaz kurt <=2 S Cefta zidim e <=1 S Ceftr iaxon e <=1 S Cefur oxime <=4 S Cipro floxa michael <=1 S Ertap enem <=0.5 S Genta micin <=4 S Levof loxac in <=2 S Nitro furan toin <=32 S Piper acill in/Ta z <=16 S Tetra cycli ne <=4 S Tobra mycin <=4 S Trime th/Tripp lfa <=2/3 8 S Trime thopr im <=8 S Not Available [facility] [address] [place] [address], [address], 04/05/2019 10:46:01 06/08/20 19 06/08/2019 creat inine , serum or plasm a creatinine 1.06 mg/dL 0.70-1 .25 normal Not Available [facility] [address] [place] [address], [address], 06/08/2019 12:45:16 01/15/20 22 01/14/2022 urina lysis panel , auto Unknown Analyte Clean Catch Not Available [facility] [address] [place] [address], [address], 01/14/2022 14:35:10 01/15/20 22 01/14/2022 urina lysis panel , auto Unknown Analyte Yellow Not Available [facility] [address] [place] [address], [address], 01/14/2022 14:35:10 01/15/20 22 01/14/2022 urina lysis panel , auto Unknown Analyte Clear Not Available [facility] [address], [place], [address], 01/14/2022 14:35:10 01/15/20 22 01/14/2022 urina lysis panel , auto Unknown Analyte 1.020 Not Available [facility] [address], [place], [address], 01/14/2022 14:35:10 01/15/20 22 01/14/2022 urina lysis panel , auto Unknown Analyte 1.003- 1.035 Not Available [facility] [address], [place], [address], 01/14/2022 14:35:10 01/15/20 22 01/14/2022 urina lysis panel , auto Unknown Analyte 5.0 Not Available [facility] [address], [place], [address], 01/14/2022 14:35:10 01/15/20 22 01/14/2022 urina lysis panel , auto Unknown Analyte 5.0-8. 0 Not Available [facility] [address], [place], [address], 01/14/2022 14:35:10 01/15/20 22 01/14/2022 urina lysis panel , auto Unknown Analyte Negati ve Not Available [facility] [address], [place], [address], 01/14/2022 14:35:10 01/15/20 22 01/14/2022 urina lysis panel , auto Unknown Analyte Negati ve Not Available [facility] [address], [place], [address], 01/14/2022 14:35:10 01/15/20 22 01/14/2022 urina lysis panel , auto Unknown Analyte Negati ve Not Available [facility] [address], [place], [address], 01/14/2022 14:35:10 01/15/20 22 01/14/2022 urina lysis panel , auto Unknown Analyte Negati ve Not Available [facility] [address], [place], [address], 01/14/2022 14:35:10 01/15/20 22 01/14/2022 urina lysis panel , auto Unknown Analyte Negati ve Not Available [facility] [address], [place], [address], 01/14/2022 14:35:10 01/15/20 22 01/14/2022 urina lysis panel , auto Unknown Analyte Negati ve Not Available [facility] [address], [place], [address], 01/14/2022 14:35:10 01/15/20 22 01/14/2022 urina lysis panel , auto Unknown Analyte Normal Not Available [facility] [address], [place], [address], 01/14/2022 14:35:10 01/15/20 22 01/14/2022 urina lysis panel , auto Unknown Analyte Normal Not Available [facility] [address], [place], [address], 01/14/2022 14:35:10 01/15/20 22 01/14/2022 urina lysis panel , auto Unknown Analyte Negati ve Not Available [facility] [address], [place], [address], 01/14/2022 14:35:10 01/15/20 22 01/14/2022 urina lysis panel , auto Unknown Analyte Negati ve Not Available [facility] [address], [place], [address], 01/14/2022 14:35:10 01/15/20 22 01/14/2022 urina lysis panel , auto Unknown Analyte Normal Not Available [facility] [address], [place], [address], 01/14/2022 14:35:10 01/15/20 22 01/14/2022 urina lysis panel , auto Unknown Analyte Normal 1 mg/dl Not Available [facility] [address], [place], [address], 01/14/2022 14:35:10 01/15/20 22 01/14/2022 urina lysis panel , auto Unknown Analyte Negati ve Not Available [facility] [address], [place], [address], 01/14/2022 14:35:10 01/15/20 22 01/14/2022 urina lysis panel , auto Unknown Analyte Negati ve Not Available [facility] [address], [place], [address], 01/14/2022 14:35:10 01/15/20 22 01/14/2022 urina lysis panel , auto Unknown Analyte Negati ve Not Available [facility] [address], [place], [address], 01/14/2022 14:35:10 01/15/20 22 01/14/2022 urina lysis panel , auto Unknown Analyte Negati ve Not Available [facility] [address], [place], [address], 01/14/2022 14:35:10 06/08/20 19 06/08/2019 MRI, lumba r spine , w/wo contr ast [facility] [address] [facility] [place] [address] Nikolay holt Name: MINO holt : 947 [address] 8 Orderi ng Provid er: ROBYN SPARKS EXAM DATE: 2018 EXAM: MR LUMBAR SPINE W/WO CONTRA ST HISTOR Y: 73-yea r-old male with chroni c back and leg pain. The patien t has had prior lumbar surger y. 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 There is grade 1 anteri or listhe sis of L4 on L5 measur ing 9 mm. There is minima l mandolin repairer ior listhe sis of L2 on L3. There is no eviden ce of fractu re. There is modera te anteri or margin al osteop hytic spurri ng. No pathol ogic lesion is identi fied in the lumbar spine. The conus medull jina is normal in appear ance at the L2 level. T11-T1 2 throug h L1-L2: There are minima l disc bulges . There is no centra l canal stenos is. There is no neural forami nal stenos is. L2-L3: There is a broad- based disc bulge/ protru min and mild endpla te spurri ng. There is no centra l canal stenos is. There is mild bilate ral neural forami nal stenos is. L3-L4: There is a broad- based disc protru min and mild endpla te spurri ng. There is no centra l canal stenos is. There is modera te right and mild/m oderat e left neural forami nal stenos is. L4-L5: There is a broad- based disc protru min extend ing into the neural forami na, mild endpla te spurri ng, and modera te facet arthro nilda. There is no centra l canal stenos is. There is modera te/sev ere bilate ral neural forami nal stenos is. L5-S1: There is a broad- based disc bulge/ protru min and mild endpla te spurri ng. There is mild facet arthro nilda. There is no centra l canal stenos is. There is modera te right and mild/m oderat e left neural forami nal stenos is. After intrav enous admini strati on of [address] ([facility] [address]- [phone] ), there is no abnorm al enhanc ement in the lumbar spine. IMPRES MIN: 1. The patien t is status post emigdio ctomie s from L2-L3 throug h L4-L5. 2. There is modera te/sev ere bilate ral neural forami nal stenos is at L4-L5, modera te right and mild/m oderat e left neural forami nal narrow ing at L3-L4, modera te right and mild/m oderat e left neural forami nal narrow ing at L5-S1, and mild neural forami nal narrow ing at L2-L3. 3. There are minima l change s from the prior MRI. Interp reted By: Paulette barros MD Electr onical ly Signed By: Paulette barros MD on 019 1:39 PM [facility] [address], [address], 06/08/2019 14:46:00 09/01/20 19 09/01/2019 XR, lumbo sacra l spine , 2 or 3 view, bendi ng only [address] [place] [address] Nikolay holt Name: MINO holt : 947 Nik[address] 8 Orderi ng Provid er: ROBYN SPARKS EXAM DATE: 2018 EXAM: XR LUMBAR SPINE FLEX/E XT ONLY CLINIC AL INFORM ATION: Back pain. IMAGES PROVID ED: Latera l views of the lumbar spine in flexio n and extens ion. COMPAR CAROLINE: None. FINDIN GS: Verteb ral body height s are normal . Multil evel disc space reduct ion is seen with anteri or and latera l osteop hytes. There is grade 2 arian listhe sis of L4 over L5 which measur es 12 mm in flexio n and 10 mm in extens ion. Degene rative change s are seen in the facet joints at multip le levels . No radiog raphic eviden ce of injury is noted. IMPRES MIN: Degene rative change s of the lumbar spine. Alignm ent abnorm ality and instab ility at L4-L5 level. Interp reted By: Xiao Costa MD Electr onical ly Signed By: Xiao Costa MD on 2018 1:15 PM [email or web address] [facility] [address] [place] [address], [address], 09/21/2019 10:50:56 Result Notes None recorded. Problems Name Problem SNOMED Code Status Onset Date Resolution Date Notes Provider Name and Address Organization Details Recorded Time Spondylol isthesis 507387157 Active 2015 From [employer];[facility] [place]: Sav Carpenter;[facility]: Active Not Available [facility] 6 06:47:50 Lumbosacr al radiculop athy 6975189 Active 2015 From [employer];[facility] [place]: Sav Carpenter;[facility]: Active Not Available [employer] 6 06:47:50 Problem Notes None recorded. Procedures Surgical History Date Name Laterality Status Provider Name and Address Organization Details Recorded Time 03/15/20 19 Post Void Residual; Ultrasound completed Sayra CORRALES [facility] 03/15/2019 14:11:08 03/03/20 19 Post Void Residual; Ultrasound completed Sayra Houston [facility] 03/03/2019 13:38:19 02/20/20 19 Post Void Residual; Ultrasound completed Dory Townsend [facility] 02/19/2019 15:23:08 02/10/20 19 CONTACT LASER VAPORIZATION, WITH TRANSURETHRAL RESECTION OF PROSTATE (SURG) completed Mery Vicki [facility] 02/10/2019 08:55:15 08/05/20 18 Lumbar Radiofrequency Ablation completed ENRIQUE FRENCH MD [address] [place] [address], [address], [facility] 08/05/2018 12:28:23 07/29/20 18 Lumbar Radiofrequency Ablation completed ENRIQUE FRENCH MD [address] [place] [address], [address], [facility] 07/29/2018 13:17:00 07/01/20 18 Lumbar Medial Branch Blocks completed ENRIQUE FRENCH MD [address] [place] [address], [address], [facility] 07/01/2018 14:24:01 08/14/20 11 Back Surgery completed [facility] 01/07/2017 14:39:50 Other completed [facility] 01/07/2017 14:38:38 Knee arthroscopy/surger y completed [facility] 01/07/2017 14:38:50 Other completed [facility] 01/07/2017 14:40:05 Imaging Results Imaging Date Name Status LastModified by Organiz ation Details LastModified Time 06/08/2019 MRI, lumbar spine, w/wo contrast completed [email or web address] [facility] [address] [place], [address], 06/08/2019 14:46:00 09/01/2019 XR, lumbosacral spine, 2 or 3 view, bending only completed [email or web address] [facility] [address] [place], [address], 09/21/2019 10:50:56 Procedure Notes None recorded. Medical Equipment None Reported. Allergies Allergen ID Allergen Name Allergen Category Reaction Reaction Severity Criticality Documentation Date Start Date Code Code System Note Provider Name and Address Organization Details Recorded Time [id number] Substance with sulfonami de structure and antibacte rial mechanism of action (substanc e) medicatio n Not available Not available Not available 12/21/2018 04416 8003 SNOMED Toshia Ashvin [facility] 9 14:40:22 Medications Name Sig Start Date Stop Date Status Note LastModified by Organization Details LastModified Time gabapenti n 600 mg tablet Three times a day 01/14 completed Frequenc y: tid;Medi cation Descript ion: gabapent in; Route:or al; refills: 3; Quantity :90 tablet Not Available Not Available Not Available atorvasta tin 10 mg tablet Take 1 tablet every day by oral route. active Not Available Not Available No t Available oxybutyni n chloride ER 10 mg tablet,ex tended release 24 hr Take 1 tablet every day by oral route. 01/14 completed Not Available Not Available Not Available amiodaron e 200 mg tablet Daily 01/14 completed Frequenc y: daily;Me dication Descript ion: amiodaro ne; Dosage:1 ; Route:or al; refills: 0 Not Available Not Available Not Available phenazopy ridine 200 mg tablet TAKE 1 TABLET BY MOUTH THREE TIMES A DAY 01/14 completed Not Available Not Available Not Available clopidogr el 75 mg tablet Take 1 tablet every day by oral route. active Not Available Not Available No t Available Mobic 15 mg tablet Daily 12/21 completed Duration : 30 days;Jose D quency: daily;Me dication Descript ion: meloxica m; Dosage:1 ; Route:or al; refills: 2; Quantity :30 tablet Not Available Not Available Not Available tamsulosi n 0.4 mg capsule Take 1 capsule every day by oral route. active Not Available Not Available No t Available pantopraz ole 40 mg tablet,de layed release Take 1 tablet every day by oral route. active Not Available Not Available No t Available Cipro 500 mg tablet Take 1 tablet every 12 hours by oral route for 10 days. 01/14 completed Not Available Not Available Not Available lisinopri l 10 mg tablet 01/14 completed Medicati on Descript ion: lisinopr il; Route:or al; refills: 0 Not Available Not Available Not Available hydrocodo ne-acetam inophen 325-10 mg tablet Every six hours active Frequenc y: q6h;Medi cation Descript ion: hydrocod one bitartra te/aceta minophen ; Dosage:1 -2; Route:or al; refills: 0; Quantity :45 tablet Not Available Not Available Not Available omeprazol e 20 mg capsule,d elayed release Daily 01/14 completed Frequenc y: daily;Me dication Descript ion: omeprazo le; Dosage:1 ; Route:or al; refills: 0 Not Available Not Available Not Available chlordiaz epoxide-c lidinium 5 mg-2.5 mg capsule Daily 12/21 completed Frequenc y: daily;Al t Frequenc y: prn;Medi cation Descript ion: chlordia zepoxide -clidini um; Dosage:1 ; Route:or al; refills: 0; Quantity :4 capsule Not Available Not Available Not Available bumetanid e 1 mg tablet Take 1 tablet every day by oral route. active Not Available Not Available No t Available aspirin 81 mg tablet Daily 01/14 completed Duration : 30 days;Jose D quency: daily;Me dication Descript ion: aspirin; Dosage:1 ; Route:or al; refills: 0; Quantity :30 tablet Not Available Not Available Not Available mirtazapi ne 15 mg tablet Take 1 tablet every day by oral route. active Not Available Not Available No t Available metoprolo l succinate ER 25 mg tablet,ex tended release 24 hr Take 1 tablet every day by oral route. active Not Available Not Available No t Available diazepam 10 mg tablet Three times a day 01/14 completed Duration : 10 days;Ins truction s: 1 tablet three times daily as needed for spasm ;Frequen cy: tid;Alt Frequenc y: as direct.; Medicati on Descript ion: diazepam ; Dosage:1 ; Route:or al; refills: 0; Quantity :30 tablet Not Available Not Available Not Available diazepam 5 mg tablet Take 1 tablet twice a day by oral route. active Not Available Not Available No t Available alfuzosin ER 10 mg tablet,ex tended release 24 hr Take 1 tablet every day by oral route. 01/14 completed Not Available Not Available Not Available duloxetin e 60 mg capsule,d elayed release Take 1 capsule every day by oral route. 01/14 completed Not Available Not Available Not Available Fish Oil active Not Available Not Avai lable Not Available simvastat in 01/14 completed Medicati on Descript ion: simvasta tin; Route:or al; refills: 0 Not Available Not Available Not Available Lopressor Two times a day 12/21 completed Frequenc y: bid;Medi cation Descript ion: metoprol ol; Dosage:1 ; refills: 5; Quantity :60 Not Available Not Available Not Available Cymbalta 12/21 completed Medicati on Descript ion: duloxeti ne; Route:or al; refills: 0 Not Available Not Available Not Available vitamin E 15 unit/0.3 mL oral drops 01/14 completed Medicati on Descript ion: vitamin E; Route:or al; refills: 0; Quantity :1 capsule Not Available Not Available Not Available Fiber Laxative Sugar Free oral powder active Medicati on Descript ion: methylce llulose; Route:or al; refills: 0 Not Available Not Available Not Available Lovaza 1 gram capsule 12/21 completed Medicati on Descript ion: omega-3 polyunsa turated fatty acids; Route:or al; refills: 0 Not Available Not Available Not Available Centrum Silver 0.4 mg-300 mcg-250 mcg tablet 01/14 completed Medicati on Descript ion: multivit walsh with minerals ; Route:or al; refills: 0 Not Available Not Available Not Available Xarelto 20 mg tablet Daily active Frequenc y: daily;Me dication Descript ion: rivaroxa ban; Dosage:1 ; Route:or al; refills: 0 Not Available Not Available Not Available Myrbetriq 50 mg tablet,ex tended release Take 1 tablet every day by oral route. 01/14 completed Not Available Not Available Not Available Uro-MP 118 mg-10 mg-40.8 mg-36 mg capsule TAKE 1 CAPSULE BY MOUTH FOUR TIMES A DAY FOR 10 DAYS 01/14 completed Not Available Not Available Not Available Entresto 49 mg-51 mg tablet Take 1 tablet twice a day by oral route. active Not Available Not Available No t Available Vitals Date Recorded Body height Body mass index (BMI) Body weight Heart rate Systolic blood pressure Diastolic blood pressure Provider Name and Address Organization Details Last Updated DateTime 9 182.88 cm 27.1 kg/m2 19893.4 7 g 56 /min 97 mm[Hg] 61 mm[Hg] Johneriee Zachary [facility] 9 12:27:27 Date Recorded Body height Provider Name an d Address Organization Details Last Updated DateTime 04/02/2019 182.88 cm Butch Trinidad [facility] 04/02/2019 13:51:45 Date Recorded Body height Body mass index (BMI) Body weight Systolic blood pressure Diastolic blood pressure Provider Name and Address Organization Details Last Updated DateTime 06/08/2019 182.88 cm 27.1 kg/m2 53344.47 g 100 mm[Hg] 70 mm[Hg] Lissethbelkis Shaw [facility] [facility] 13:53:24 Date Recorded Body height Body mass index (BMI) Body weight Systolic blood pressure Diastolic blood pressure Provider Name and Address Organization Details Last Updated DateTime 09/01/2019 182.88 cm 27.1 kg/m2 87969.47 g 100 mm[Hg] 78 mm[Hg] Lisseth Shaw [facility] 9 14:06:13 Date Recorded Body height Body mass index (BMI) Body weight Provider Name and Address Organization Details Last Updated DateTime 01/14/2022 180.34 cm 29.3 kg/m2 49611.4 g Toshia Ashvin [facility] 01/14/2022 14:28:00 Social History Question Answer Notes LastModified by Organizat ion Details LastModified Time Tobacco Smoking Status Current Every Day Smoker Lisseth Shaw [facility] 01/07/2017 14:38:28 What Is Your Level Of Alcohol Consumption? None Information not available 12/21/2018 How Much Tobacco Do You Chew? None Information not available 12/21/2018 What Is Your Occupation? Retired Information not available 12/21/2018 Marital Status Informatio n not available 12/21/2018 What Was The Date Of Your Most Recent Tobacco Screening? 03/29/2019 Information not available 11/02/2019 What Is Your Relationship Status? Information not available 01/14/2022 How Much Tobacco Do You Smoke? 1.5 PPD Information not available 12/21/2018 Sex: Unknown Functional Status None recorded. Mental Status None recorded. Family History Relationship Description Onset Age of this Age Resolved Age Notes LastModified by Organization Details LastModified Time Mother Diabetes mellitus [email or web address] Not available 01/07 14:42:53 Brother Malignant neoplastic disease [email or web address] Not available 01/07 14:43:06 Sister Malignant neoplastic disease [email or web address] Not available 01/07 14:43:06 Unspecified Relation Hyperlipidem ia [email or web address] Not available 01/07 14:43:42 Unspecified Relation Heart disease [email or web address] Not available 01/07 14:43:55 Medical History Condition Response Anxiety Disorder Y Arthritis Y False Teeth Y Depression Y High Cholesterol Y Past Encounters Encounter ID Performer Location Encounter Start Date Encounter Closed Date Diagnosis/Indication Diagnosis SNOMED-CT Code Diagnosis ICD10 Code Diagnosis Note [id number] SAV CARPENTER MD [facility] [address] [place] [phone] 01/07/2017 13:52:17 01/09/2017 10:37:38 Spondylolisthesis 690115778 M43.10 Lumbosacra l radiculopathy 9315130 M54.16 [id number] DION GORDON PA-C [facility] [address] [place] [address] 03/30/2018 13:03:48 03/31/2018 10:53:27 Lumbar spondylolisthesis 6161713688 94166 M43.16 Mr. Hsu is s/p a prior L2-5 laminectom [place] [address] Rick Montague who presents with continued mechanical low back pain with some more recent left hip pain. He does not have his old MRI from a couple of years ago to review. Reportedly it showed severe left greater than right foraminal stenosis at L4-5. His flexion/ex tension films from Jun 2016 showed a 7 mm L4-5 spondy without instabilit y. His symptoms appear to have remained stable since we saw him last. Actually, his radicular left leg symptoms appear to have improved some. His exam is non-focal. Will update his lumbar MRI and flexion/ex tension films to assess for any worsening stenosis and/or instabilit y. He states that he wants to avoid a lumbar fusion if at all possible. He states that he can now come off his blood thinners for procedures or surgery. Will send him for an L4-5 AISHWARYA pending confirmati on from his cardiologi st, Dr. Shelton, that he can be off his Plavix and Xeralto long enough for this. Will plan to see him back in 1 month to assess his progess. He knows to call the office with any questions or concerns in the meantime. He is happy with this plan. [id number] EVAN PRADO PA-C [facility] [address] [place] [address] 05/04/2018 13:12:54 05/07/2018 15:06:01 Spondylolisthesis 639798574 M43.10 Lumbar MRI L4-5 spondyloli sthesis with moderate-s evere foraminal stenosis and mild-moder ate central stenosis L5-S1 moderate-s evere bilateral foraminal stenosis 71M with L4-5 spondyloli sthesis and moderate-s evere foraminal stenosis at L4-5 L5-S1. The patients symptoms seem quite mild today. He does not feel that they are severe enough to warrant a surgery at this time, and wishes to wait. This is very reasonable . We recommend that he continue with conservati ve treatments until his symptoms become severe and refractory to those measures. He understand s that should they become that way, he should call our office for another evaluation . Pt agrees with this plan. [id number] ENRIQUE FRENCH MD [facility] [address] [place] [address] 06/19/2018 13:24:59 06/29/2018 14:06:48 Long-term drug therapy [id number] Z79.899 Lumbar spondylosis 04899 0009 M47.260 [id number] ENRIQUE FRENCH MD [facility] [address] [place] [address] 1 07/01/2018 14:00:57 07/03/2018 14:46:43 Lumbar spondylosis 633083263 M47.486 [id number] ENRIQUE FRENCH MD [facility] [address] [place] [address] 1 07/13/2018 13:08:25 07/13/2018 13:36:34 Lumbar spondylosis 949509417 M47.816 Long-term drug therapy 349224472 Z79.954 [id number] ENRIQUE FRENCH MD [facility] [address] [place] [address] 1 07/29/2018 12:07:47 07/31/2018 14:52:20 Lumbar spondylosis 140249611 M47.848 [id number] ENRIQUE FRENCH MD [facility] [address] [place] [address] 1 08/05/2018 11:29:13 08/12/2018 07:19:53 Lumbar spondylosis 450719214 M47.527 [id number] ENRIQUE FRENCH MD [facility] [address] [place] [address] 1 09/17/2018 10:20:49 09/17/2018 11:59:31 Lumbar spondylosis 102662991 M47.744 [id number] ENRIQUE FRENCH MD [facility] [address] [place] [address] 1 11/23/2018 13:12:48 11/23/2018 13:51:18 Myofascial pain 860492666 M79.10 [id number] EZ ODOM MD [facility] [address] [place] [address] 12/21/2018 13:53:15 12/21/2018 14:52:29 Benign prostatic hyperplasia with outflow obstruction 189888194 N40.1 we will try alfuzosin. He apparently was treated with Bactrim for possible prostatiti s and took 2 doses this, considerab le somatic side effects. He will follow-up in one month and [facility]. Increased frequency of urination 499604451 R35.0 [id number] EZ ODOM MD [facility] [address] [place] [address] 01/04/2019 13:10:11 01/04/2019 14:05:31 Benign prostatic hyperplasia with outflow obstruction 499566887 N40.1 as he is not improve we will arrange for flexible local cystoscopy [id number] EZ ODOM MD SURGERY SCHEDULE [address] [place] [id number] 01/13/2019 07:27:05 01/13/2019 07:28:46 [id number] EZ ODOM MD [facility] [address] [place] [address] 02/19/2019 14:43:44 02/19/2019 15:29:45 Urinary tract infectious disease 88689375 N39.0 Benign pro static hyperplasia with outflow obstruction 674656017 N40.1 status post greenlight laser vaporizati on of prostate. We will observe him for now. He will follow-up in one month. [id number] ZE ODOM MD [facility] [address] [place] [address] 03/03/2019 12:30:23 03/03/2019 14:14:31 Increased frequency of urination 142253244 R35.0 Benign pro static hyperplasia with outflow obstruction 586060762 N40.1 status post greenlight laser vaporizati on of prostate. We will observe him for now. He will follow-up in one month. [id number] SAV CARPENTER MD [facility] [address] [place] [address] 03/09/2019 14:02:25 03/11/2019 14:15:00 Lumbar spondylolisthesis 4011480214 76616 M43.16 Mr. Hsu presents to clinic at the request of Dr. Dariusz Vu for evaluation of low back pain which radiates to the bilateral hips. He is a pleasant 73 y/o who is s/p an L2-[address] Rick Montague in 2010. Comorbidit ies include a-fib and CAD s/p stents. He takes ASA and Xarelto. He has known lumbar spondyloli sthesis on flexion extension x-rays from 2018. His last lumbar MRI was from 2018 as well. Symptoms have been refractory to the extensive conservati ve management listed above. Dr. Carpenter would recommend ordering a lumbar MRI with and without contrast and flexion. He would likely be candidate for an L4-5 fusion. Apparently he is able to come off his Xarelto and aspirin for procedures . Unfortunat adelina, he underwent what sounds like a laser procedure on his prostate and has had painful urination. He has also had what sounds like a hemorrhoid ablation recently and still has some postop pain associated with that. He would like to hold off on an updated MRI at this time. He knows to call should he want to schedule the MRI and the flexion extension x-rays. The patient was seen and examined by Dr. Carpenter and myself. He agrees with the plan as stated above. [id number] MD [facility] [address] [place] [address] 03/15/2019 13:27:52 03/15/2019 14:41:09 Benign prostatic hyperplasia with outflow obstruction 250025950 N40.1 status post greenlight laser vaporizati on of prostate. We will observe him for now. He will follow-up in 3 weeks Increased frequency of urination 841559831 R35.0 he was given instructio lawrence in written to hold oxybutynin once he starts Myrbetriq [id number] MD [facility] [address] [place] [address] 03/29/2019 12:11:13 03/29/2019 13:27:34 Urinary tract infectious disease 41077939 N39.0 Increased frequency of urination 604978988 R35.0 plan as above Benign pro static hyperplasia with outflow obstruction 496889178 N40.1 status post greenlight laser vaporizati on of prostate. [id number] EZ ODOM MD [facility] [address] [place] [address] 04/02/2019 13:45:22 04/02/2019 13:47:22 Urinary tract infectious disease 49845354 N39.0 [id number] SAV CARPENTER MD [facility]OS[facility] [address] [place] [address] 06/08/2019 13:38:06 06/10/2019 09:06:31 Lumbar spondylolisthesis 5216838396 87761 M43.16 -The patient returns today for routine evaluation . His biggest complaint remains incontinen ce and prostate issues. He has had low back issues since 2016. He has pursued treatments such as physical therapy, home exercises, regular use of anti-infla mmatories. No lasting relief with the above modalities . The MRI was reviewed. He has an L4-5 spondyloli sthesis. Severe foraminal stenosis bilaterall y. MRI was performed at [facility]. He would potentiall y benefit from a L4-5 fusion. We will see him back with routine assessment into the 3 months. We feel strongly that the prostate issue should be resolved prior to considerin g any interventi on with the low back. There are no significan t issues with the low back that should be contributi ng to incontinen ce. [id number] SAV CARPENTER MD NEUROSURG [facility] [address] [place] [address] 09/01/2019 13:07:42 09/02/2019 15:23:03 Lumbar spondylolisthesis 1942892839 42034 M43.16 -Patient returns today for routine evaluation of his mechanical low back and intermitte nt bilateral leg symptoms. Flexion extension films today show 12 subluxatio n of L4 on 5 with extension that reduces to about 10 mm on extension. Overall his low back issues remain stable or still bothersome for him. With him that he'll take an L4-5 lumbar fusion to adequately address this problem. He states that he has some concerns about some of the increased urinary frequencie s been having over the past few weeks. Specifical ly he is concerned about needing to get up and down frequently after having a back surgery. He wants to see how things progress over the next couple of weeks with this issue and perhaps even talk back with his urologist further thoughts. This is reasonable at this time. We'll plan to see him back in 2 months to reassess. We did tell him that if at a time he feels that his urinary issues are under control and he wishes to proceed with surgery, to give the office a call and we will get this scheduled for him. He is happy with this plan. Patient seen and evaluated attending physician, Dr. Carpenter. [id number] EZ ODOM MD [facility] [address] [place] [address] 01/14/2022 14:05:54 01/14/2022 14:45:32 Neurogenic urinary bladder 968071441 N31.9 Stable Primary er ectile dysfunction 642776870 N52.9 we discussed that his reservoir may have high pressure due to encapsulat ion and that if indicated this could be reposition ed and perhaps replaced. At this point he will observed. Health Concerns Section Related Observation LastModified by Organization Detai ls LastModified Time None Recorded Concern Status LastModified by Organization Details LastModified Time None Recorded Advance Directives Directive None Recorded Payers Encounter Date Sequence Insurance Name Policy Number Policy Givens Covered Member ID Givens Member ID Guarantor Name 03/29/2019 1 [place] Mino Hsu [id number] Mino Hsu 03/29/2019 2 [place] [id number] Mino Hsu [id number] Mino Hsu 04/02/2019 1 [place] Mino Hsu [id number] Mino Hsu 04/02/2019 2 [id number] Mino Hsu [id number] Mino Hsu 06/08/2019 1 [place] Mino Hsu [id number] Mino Hsu 06/08/2019 2 [place] [id number] Mino Hsu [id number] Mino Hsu 09/01/2019 1 [place] Mino Hsu [id number] Mino Hsu 09/01/2019 2 [place] [id number] Mino Hsu [id number] Mino Hsu 01/14/2022 1 [place] Mino Hsu [id number] 16 Mino Hsu 01/14/2022 2 [place] [id number] Mino Hsu [id number] Mino Hsu Notes Date Note Type Note Provider Name and Address Organization Details Recorded Time 03/29/2019 text/html the patient is h ere now nearly 2 months following greenlight laser vaporization of prostate. Unfortunately still has severe frequency and urgency. He takes Azo [id number]. He is also been on oxybutynin chloride most recently and then at last visit switched to Myrbetriq 50mg. he is really noticed no significant change. He has significant back pathology in his seeing both neurosurgery and pain management. We discussed that typically has frequency symptoms would be improved at this point. He seems refractory to any oral medication and recommended to consider PTNM. Discussed the general procedure. I informed him that it may take a few minutes before he notices any improvement most generally one or 2 shows some change. He is agreeable. He will continue with oxybutynin chloride for now. EZ ODOM MD [facility] [place], [address], [facility] 03/29/2019 12:51:20 06/08/2019 text/html The patient retu rns today for routine follow-up. Updated MRI of the lumbar spine was performed prior to his visit. History of a L2-5 lumbar laminectomy. He has severe bilateral foraminal stenosis at L2 4? 5. He is pain across his back that will radiate into his legs. Intermittently affects the left or the right. States that legs are affected Approximately equal. His major concern continues to be incontinence related to his prostate. He has an appointment with Dr. Massey for further consultation and treatment SAV CARPENTER MD [address] [place] [address], [phone], [facility] 06/08/2019 14:20:55 09/01/2019 text/html Mr. Hsu pres ents to clinic for recheck of mechanical low back and intermittent bilateral leg pain with set of flexion-extension films. We last saw him in May of this year. History of a prior L2-[address] Rick Montague in 2010. He has an L4-5 spondylolisthesis with severe bilateral foraminal stenosis. We've been following him for this for a couple of years, more frequently over the last 6 months. When we last saw him, we discussed the option of an L4-5 fusion to address this issue. He has some concerns about continued urinary issues related to his prostate. He wanted to follow up with his urologist, Dr. Massey, about this first. He states that he had a cystoscope performed and was placed in some Flomax. He tells me of this is helped with his urinary symptoms significantly, however his noticed some increased urinary frequency of the last few weeks. Overall he states his urinary issues are significantly better than when I last saw him. Any symptoms related to his low back and lower extremity since we last saw him. DION GORDON PA-C [facility] [place], [address], [facility] 09/01/2019 14:28:29 01/14/2022 text/html patient is you l carlos manuel seen by me in 2019 following greenlight laser exercises prostate. He has a long history of chronic back pathology unfortunately still had significant urinary frequency and urgency. He was tried on numerous anticholinergics. He also prior to that had a inflatable penile prosthesis placed by Dr. Delgado. In the interim he was evaluated in [facility] for his frequency and urgency and had what sounds to be a urodynamic study which he was told that his bladder with small placed on tamsulosin. His symptoms seem to improve he currently is receiving injection therapy to his back. His main complaint today is that his penile prosthesis spontaneously inflates with physical activity. EZ ODOM MD [address] [place], [address], [facility] 01/14/2022 14:49:26
[2025-01-04 15:20] LABS: Basophils % 0.7 % (0.1-2.0); Eosinophils # 0.1 Kmm3 (0.0-0.4); Hematocrit 44.3 % (42.0-52.0); Hemoglobin 14.5 g/dL (14.1-18.0); Lymphocytes # 1.6 K/mm3 (0.7-4.5); Lymphocytes % 25.8 % (10-50); Mean Corpuscular HGB Conc 32.7 g/dL (31.8-35.4); Mean Corpuscular Hemoglobin 32.7 pg (27.0-31.2); Mean Platelet Volume 9.2 fl (7.4-10.4); Monocytes # 0.6 K/mm3 (0.1-1.0); Monocytes % 9.7 % (1.7-9.3); Neutrophils # 3.8 K/mm3 (1.8-7.8); Neutrophils % 62.1 % (37.0-80.0); Nucleated Red Blood Cells # 0 10^3/uL; Nucleated Red Blood Cells % 0 %; Platelet Count 176 K/mm3 (142-424); Red Blood Count 4.43 M/mm3 (4.60-6.20); Red Cell Distribution Width 12.9 % (11.5-17.5); White Blood Count 6.1 K/mm3 (4.8-10.8)
[2025-01-04 15:57] LABS: Albumin Level 3.9 g/dl (3.5-5.0); Chloride 106 mmol/L (98-107)
[2025-01-04 15:58] LABS: Potassium 4.4 mmoL/L (3.5-5.1); Sodium 143 mmol/L (136-145)
[2025-01-04 16:00] LABS: Alanine Aminotransferase 17 U/L (12-78); Anion Gap 9.4 mEq/L (5-15); Aspartate Amino Transferase 23 U/L (17-59); Bilirubin,Unconjugated 0.7 mg/dL (0.0-1.1); Blood Urea Nitrogen 9 mg/dl (9-20); Carbon Dioxide 32 mmol/L (22.0-30.0); Cholesterol 136 mg/dl (140-200); Estimated Glomerular Filt Rate 82 ml/min (>60); GFR (African American) 99 ML/MIN (>60); Total Protein,Serum 6.1 g/dl (6.3-8.2); Triglycerides 113 mg/dl (30-150); VLDL Cholesterol 23 mg/dL (0-40)
[2025-01-04 16:01] LABS: Alkaline Phosphatase 71 U/L (38-126); Bilirubin,Indirect 0.8 mg/dL (0.0-0.9); Bilirubin,Total 0.8 mg/dl (0.2-1.3); Chol/HDL Ratio 2.6 (1-3.5); Glucose 96 mg/dl (74-100); HDL Cholesterol 52 mg/dl (40-60)
[2025-01-04 16:12] LABS: Direct LDL Cholesterol 46.96 mg/dL (100-129)
[2025-01-04 16:17] LABS: Free T4 (Free Thyroxine) 1.21 ng/dl (0.78-2.19)
[2025-01-04 16:32] LABS: Thyroid Stimulating Hormone 1.41 uIU/mL (0.465-4.68)
== END 2025-01-04 23:59 | disposition home or self-care (01) ==
LOC: LAB 14:36
PROVIDERS: PCP Family Medicine; Visit Provider Internal Medicine
DX: I11.0 Hypertensive heart disease with heart failure (principal); I25.5 Ischemic cardiomyopathy; I50.22 Chronic systolic (congestive) heart failure; R06.00 Dyspnea, unspecified; R53.83 Other fatigue; E78.2 Mixed hyperlipidemia; I25.10 Atherosclerotic heart disease of native coronary artery without angina pectoris
CPT/HCPCS: 36415; 80048; 80061; 80076; 83735; 84439; 84443; 85025

== ENCOUNTER 2025-04-07 10:35 | Inpatient (IN) | payer MEDICARE, BC, SELFPAY ==
--- OUTSIDE RECORDS SUMMARY | 2025-03-11 14:00 | XMS_ITS | Encounter Summary ---
Author Organization [facility] Address [address] [place] [address] Care Team Providers Care Small Battery Plate Assembler Name Role Phone Cheko Heredia MD Primary Care Provider + Reason for Visit * Reason Comments Follow-up Diabetes Hyperlipidemia Encounter Details Date Type Department Care Team (Late st Contact Info) Description 03/11/2025 2:00 PM EDT Office Visit [facility] [address] [place] [address] Cheko Heredia MD [address] [place] [address] Type 2 diabetes mellitus with [...] Industry Job Start Date Job End Date [employer] Not on file Not on file [...] visit with me he followed up with [facility] cardiology without changes in medications. He is seeing electrophysiology in March and is considering undergoing repeat ablation. He has seen [facility] gastroenterology. Upper and lower endoscopies have [...] 3:00 PM EDT Office Visit [facility] [address] [place] [address] Cheko Heredia MD [address] [place] [address] 12/12/2025 2:15 PM EDT Office Visit [facility] [address] [place] [address] Cheko Heredia MD [address] [place] [address] Scheduled Procedures Name Priority Associated Diagnoses Date/Ti me ABLATION A-FIB Atrial fibrillation with RVR Cardiomyopathy, dilated, nonischemic Essential hypertension documented as of this encounter Visit Diagnoses Diagnosis Type 2 diabetes mellitus with hyperglycemia, without long-term current use of insulin- Primary Chronic pain syndrome Spondylosis of lumbar region without myelopathy or radiculopathy Anxiety about health documented in this encounter Care Teams Small Battery Plate Assembler Relationship Specialty Start Date End Date Cheko Heredia MD [address] [place] [address] PCP - General Family Medicine 01/10/22 documented as of this encounter
--- OUTSIDE RECORDS SUMMARY | 2025-03-11 14:00 | XMS_ITS | Encounter Summary ---
Author Organization [facility] Address [address] [place] [address] Care Team Providers Care Local Owner Operator Truck Driver Name Role Phone Cheko Heredia MD Primary Care Provider + Reason for Visit * Reason Comments Follow-up Diabetes Hyperlipidemia Encounter Details Date Type Department Care Team (Late st Contact Info) Description 03/11/2025 2:00 PM EDT Office Visit [facility] [address] [place] [address] Cheko Heredia MD [address] [place] [address] Type 2 diabetes mellitus with [...] Industry Job Start Date Job End Date [employer] Not on file Not on file [...] visit with me he followed up with [facility] cardiology without changes in medications. He is seeing electrophysiology in March and is considering undergoing repeat ablation. He has seen [facility] gastroenterology. Upper and lower endoscopies have [...] Description 06/13/2025 3:00 PM EDT Office Visit [facility] [address] [place] [address] Cheko Heredia MD [address] [place] [address] 12/12/2025 2:15 PM EDT Office Visit [facility] [address] [place] [address] Cheko Heredia MD [address] [place] [address] Scheduled Procedures Name Priority Associated Diagnoses Date/Ti me ABLATION A-FIB Atrial fibrillation with RVR Cardiomyopathy, dilated, nonischemic Essential hypertension documented as of this encounter Visit Diagnoses Diagnosis Type 2 diabetes mellitus with hyperglycemia, without long-term current use of insulin- Primary Chronic pain syndrome Spondylosis of lumbar region without myelopathy or radiculopathy Anxiety about health documented in this encounter Care Teams Local Owner Operator Truck Driver Relationship Specialty Start Date End Date Cheko Heredia MD [address] [place] [address] PCP - General Family Medicine 01/10/22 documented as of this encounter
--- OUTSIDE RECORDS SUMMARY | 2025-03-30 13:30 | XMS_ITS | Encounter Summary ---
Author Organization [place] [address] Care Team Providers Care Beauty School Instructor Name Role Phone Unavailable Primary Care Provider Unavailabl e Reason for Visit * Reason Comments Follow-up 6 month f/u hx AF.me ds per pt report Encounter Details Date Type Department Care Team (Late st Contact Info) Description 03/30/2025 1:30 PM EDT Office Visit [facility] [address] [facility] [address] [place] [address] Edis Garza MD [address] [place] [address] Atrial fibrillation with rapid ventricular response (HCC) [...] carotid artery stenosis CHF (congestive heart failure) ([facility]) S/P ablation of atrial fibrillation Social History [...] nerves are grossly intact. Speech is normal. [id number] Stroke Risk Points: 6 Values used to [...] Artery Disease Managed by [facility] [place] 4. Tobacco h/o F/u 6 months documented [...] Please contact your primary care physician or director treasurer for management of your lipids. documented in [...]
--- OUTSIDE RECORDS SUMMARY | 2025-03-30 13:30 | XMS_ITS | Encounter Summary ---
Author Organization [facility] [address] Care Team Providers Care Bellman Name Role Phone Unavailable Primary Care Provider Unavailabl e Reason for Visit * Reason Comments Follow-up 6 month f/u hx AF.me ds per pt report Encounter Details Date Type Department Care Team (Late st Contact Info) Description 03/30/2025 1:30 PM EDT Office Visit [facility] [address] [facility] [address] [place] [address] Edis Garza MD [address] [place] [address] Atrial fibrillation with rapid ventricular response (HCC) [...] 1:33 PM EST documented in this encounter Miscellaneous Notes * [...] Please contact your primary care physician or log loader helper for management of your lipids. documented in [...] 03/30/2025 1:46 PM EDT Sinus rhythm Edis Graza MD POINT OF CARE CARDIOLOGY Final Result [...]
[2025-04-07] VITALS (21 sets, daily range): BP systolic 98–202; BP diastolic 36–170; PULSE 50–144; RESP 12–22; TEMP 36.4–36.8; O2SAT 80–99; BMI 27.8; BMI 27.6
--- NOTE | 2025-04-07 10:37 | ECG_ITS ---
APPROVED REPORT Exam: Resting ECG HR:143 bpm ECG Measurements Heart Rate 143 AXES QRSd 107 QRS 84 QT 318 T 81 QTc 401 Conclusion ATRIAL FLUTTER/TACHYCARDIA WITH RAPID VENTRICULAR RESPONSE ABNORMAL RHYTHM ECG UNCONFIRMED REPORT Electronically signed by : Mark Cabrera, 04/07/2025 15:51:37
--- NOTE | 2025-04-07 10:37 | ED_ITS ---
Discharge Plan Disposition Patient Disposition: Admitted Condition: Fair Clinical Impressions Clinical Impression: Angina pectoris, unstable Atrial flutter Qualifiers: Atrial flutter type: typical Qualified Code(s): I48.3 - Typical atrial flutter Discharge ED Provider: Mark Cabrera Adult HPI General Chief complaint: Chest Pain Stated complaint: chest pain Time Seen by Provider: 04/07/25 10:36 History of Present Illness HPI narrative: Patient is a 79-year-old male with a history of coronary artery disease s/p PCI, CHF, A-fib on Xarelto, hypertension, hyperlipidemia. He presents today due to concerns for chest pain as well as palpitations and occasional shortness of breath. He reports that it gets worse on exertion. On Friday, he was doing yard work outside and noticed that it limited him. It did not improve much with nitroglycerin. He reports today it is worse, anterior nature feels like chest pressure. Worse with exertion, does resolve somewhat with rest, but still present at rest. Palpitations with his heart rate getting up into the 150s at home. He has been compliant with his medications. He denies any recent fevers or infectious-like symptoms. Reports dyspnea yesterday, but not much today. No significant orthopnea no significant change in lower extremity edema. Per my review the NOV, he was diagnosed with a flutter with RVR with failed cardioversion 1 year ago. He has had ablations in the past with intermittent success. Related Data Home Medications ?Medication ?Instructions ?Recorded ?Confirmed albuterol sulfate 90 mcg/actuation 2 puff inhalation Q 4HP PRN 08/25/24 04/07/25 aerosol inhaler Shortness Of Breath atorvastatin 10 mg tablet 10 mg PO HS 08/25/24 5 diazepam 5 mg tablet 5 mg PO Q12HP PRN Anxiety 04/07/25 duloxetine 60 mg capsule,delayed 60 mg PO DAILY 04/07/25 release empagliflozin 10 mg tablet 10 mg PO DAILY 08/25/24 (Jardiance) oxycodone-acetaminophen 5 mg-325 1 tab PO Q8HP PRN Vidal n 08/25/24 04/07/25 mg tablet pantoprazole 40 mg tablet,delayed 40 mg PO DAILY 08/2504/07/25 release tamsulosin 0.4 mg capsule 0.4 mg PO HS 08/25/24 metoprolol succinate 25 mg 25 mg PO DAILY 10/06/24 tablet,extended release 24 hr simethicone 125 mg chewable tablet 125 mg PO QD-BID ID N Gastric Reflux 03/29/25 04/07/25 (Gas-X Extra Strength) sytaol-cplqnoxy-qxhkcit 1 cap PO TIDWMEAL 04/07/25 0 04/07/25 36,000-114,000-180,000 unit capsule,delay rel (Creon) rivaroxaban 15 mg tablet (Xarelto) 15 mg PO DAILY 03/1604/07/25 Previous Rx's ?Medication ?Instructions ?Recorded lidocaine 5 % topical patch 1 patch topical DAILY #30 ea 11/23/24 ranolazine 1,000 mg 1,000 mg PO BID #180 tabs tablet,extended release,12 hr aspirin 81 mg tablet,delayed 81 mg PO DAILY #30 tabs 0 01/04/25 release (Adult Aspirin Regimen) Movantik 12.5 mg tablet (naloxegol) 12.5 mg PO DAILY # 30 tabs 03/29/25 Allergies Allergy/AdvReac Type Severity Reaction Status Date / Time Sulfa (Sulfonamide Allergy Unknown Unknown Verified 04/07/25 10:49 Antibiotics) allergy reaction [facility] Disclaimer: The information contained in this section may have been updated after the patient was seen, as this information can be updated by other users. Medical History (Updated 04/07/25 @ 15:24 by Taryn Blackwood APRN) Angina pectoris, unstable History of cardioversion HFrEF (heart failure with reduced ejection fraction) On amiodarone therapy Major depressive disorder Atypical angina COPD (chronic obstructive pulmonary disease) Dyspnea Fatigue Daytime somnolence Bilateral carotid artery stenosis Tobacco dependence syndrome Atrial fibrillation with RVR Atrial fibrillation HLD (hyperlipidemia) HTN (hypertension) Abnormal electrocardiography CAD (coronary artery disease) Surgical History History of banding of hemorrhoid History of colonoscopy History of esophagogastroduodenoscopy (EGD) History of cardiac radiofrequency ablation Family History Other Family history of cancer Family history of diabetes mellitus Social History Smoking Status: Current every day smoker tobacco type: cigarettes packs per day: 1 alcohol intake: never substance use type: denies use current occupational status: unemployed and retired Travel in the last 8 weeks?: Inside the [place] household members: none housing: house current occupational exposures/hazards: No Have you lived/traveled outside [place] in past 30 days?: No Contact w/someone who lives/traveled outside US past 30 days?: No Exposure to someone with infectious disease in past 14 days?: No Do you have a fever (greater than 100.4 F or 38 C)?: No Have you tested positive for COVID-19?: No Exposed to someone with COVID-19 in past 14 days?: No Do you have a sore throat?: No Do you have a cough?: No Do you have any weakness?: No Do you have any diarrhea?: No Are you experiencing any unusual bleeding?: No Do you have any muscle aches/pain?: No Do you have any abdominal pain?: No Are you experiencing loss of taste or smell?: No Other Medical History Have you received the Flu Vaccine for this season: Yes Have you received the Pneumonia Vaccine: Yes ROS Obtained: Yes All systems reviewed & no additional complaints except as documented Physical Exam General General appearance: alert and in no apparent distress Head Head exam: atraumatic and normocephalic Eye Eye exam: Present PERRL and EOMI ENT ENT exam: Present normal oropharynx Neck Neck exam: Present full ROM and trachea midline Chest Chest inspection: Present symmetric chest wall rise Respiratory Respiratory exam: Present normal lung sounds bilaterally; Absent stridor Cardiovascular Cardiovascular exam: Present tachycardia and irregular rhythm Abdominal Exam Abdominal exam: Present soft; Absent distention or tenderness Extremities Exam Extremities exam: Present full ROM and edema (1+ bilateral extremity edema) Neurological Exam Neurological exam: Present alert and oriented X3 Psychiatric Psychiatric exam: Present normal mood Skin Skin exam: Present warm and dry Medical Decision Making Medical Records Screening: Per USPSTF and CDC recommendations, given the prevalence of disease in our region, it is our hospital?s policy to screen for HIV and viral Hepatitis for all patients aged 18 and over and those with ongoing risk factors. Eilel Inquiry Pt receiving controlled substance: No Vital Signs: 04/07/25 10:36 04/07/25 11:00 04/07/25 11:08 Temperature 98.2 F Temperature Source Oral Pulse Rate 130 H 78 Pulse Rate [Apical] 144 H Respiratory Rate 18 17 20 Blood Pressure 101/66 L 98/59 L Blood Pressure [Right Arm] 123/83 Blood Pressure Mean [Right Arm] 96 Blood Pressure Source Blood Pressure Source [Right Arm] Automatic Cuff Blood Pressure Position Blood Pressure Position [Right Arm] Sitting 02 Sat by Pulse Oximetry 96 94 L 93 L Oxygen Delivery Method Room Air 04/07/25 11:30 04/07/25 11:54 04/07/25 12:00 Temperature Temperature Source Pulse Rate 69 69 67 Pulse Rate [Apical] Respiratory Rate 16 18 12 Blood Pressure 107/36 L 106/68 L 108/68 L Blood Pressure [Right Arm] Blood Pressure Mean [Right Arm] Blood Pressure Source Blood Pressure Source [Right Arm] Blood Pressure Position Blood Pressure Position [Right Arm] 02 Sat by Pulse Oximetry 95 93 L 93 L Oxygen Delivery Method 04/07/25 12:17 04/07/25 12:31 04/07/25 12:35 Temperature 98.0 F 97.8 F Temperature Source Oral Oral Pulse Rate 66 Pulse Rate [Apical] 70 Respiratory Rate 18 16 18 Blood Pressure 108/68 L 111/68 Blood Pressure [Right Arm] 111/68 Blood Pressure Mean [Right Arm] 82 Blood Pressure Source Automatic Cuff Blood Pressure Source [Right Arm] Automatic Cuff Blood Pressure Position Sitting Blood Pressure Position [Right Arm] Supine 02 Sat by Pulse Oximetry 96 Oxygen Delivery Method Room Air Room Air Lab Data Lab Results 04/07/25 10:40: WBC 7.6, RBC 5.11, Hgb 16.5, Hct 50.1, MCV 98.0 H, MCH 32.3 H, MCHC 32.9, RDW 12.6, Plt Count 176, MPV 9.4, Neut % (Auto) 71.4, Lymph % (Auto) 16.9, [place] % (Auto) 10.3 H, Eos % (Auto) 0.7, Baso % (Auto) 0.3, Neut # (Auto) 5.5, Lymph # (Auto) 1.3, [place] # (Auto) 0.8, Eos # (Auto) 0.1, Baso # (Auto) 0.0, PT 12.5, INR 1.14 H, D-Dimer 0.61 H, Sodium 136, Potassium 3.9, Chloride 99, C arbon Dioxide 31 H, Anion Gap 9.9, BUN 13, Creatinine 0.90, Estimated Creat Clear 78, Estimated GFR 82, Est GFR ( Amer) 99, Glucose 132 H, Calcium 9.7, Phosphorus 2.7, Magnesium 1.9, Total Bilirubin 0.8, AST 30, ALT 18, Alkaline Phosphatase 97, Troponin I < 0.01, NT-Pro-B Natriuret Pep 930 H, Total Protein 7.6, Albumin 4.7, Globulin 2.9, Albumin/Globulin Ratio 1.6, TSH 2.45, Free T4 1.36, HCV Ab DRAKE w/Rflx PCR Qn Negative, HIV Ag/Ab Combo Qual Negative 04/07/25 10:40 04/07/25 10:40 Orders (Tests/Meds): ED MEDICATIONS Generic Name Dose Route Start Last Admin Trade Name Freq PRN Reason Stop Dose Admin Acetaminophen 650 mg 04/07/25 12:03 Acetaminophen 325mg Tab PO 05/07/25 12:02 Q4HP PRN Fever or Mild Pain (1-3) Lipase/Protease/Amylase 1 each 04/07/25 17:30 Lipase/Protease/Amylase 1 Each Capsule. PO 05/07/25 17:29 TIDWMEAL ABI Aspirin 81 mg 04/08/25 09:00 Aspirin Ec 81mg Tablet PO 05/08/25 08:59 DAILY ABI Atorvastatin Calcium 10 mg 04/07/25 21:00 Atorvastatin 10mg Tablet PO 05/07/25 20:59 HS ABI Diazepam 5 mg 04/07/25 13:15 Diazepam 5mg Tablet PO 04/08/25 01:15 ONCE PRN Anxiety Diazepam 5 mg 04/07/25 14:43 Diazepam 5mg Tablet PO 05/07/25 14:42 Q12HP PRN Anxiety Duloxetine HCl 60 mg 04/08/25 09:00 Duloxetine 30mg Capsule. PO 05/08/25 08:59 DAILY ABI Empagliflozin 10 mg 04/08/25 09:00 Empagliflozin 10mg Tablet PO 05/08/25 08:59 DAILY ABI Lorazepam 1 mg 04/07/25 13:15 Lorazepam 2mg/Ml Vial IV 04/08/25 01:15 ONCE PRN Anxiety Metoprolol Succinate 25 mg 04/08/25 09:00 Metoprolol Succinate Xl 25mg Tablet PO 05/08/25 08:59 DAILY [facility] Oxycodone/Acetaminophen 1 each 04/07/25 14:43 Oxycodone 5mg W/Apap 325mg Tablet PO 05/07/25 14:42 Q8HP PRN Moderate to Severe Pain (4-10) Pantoprazole Sodium 40 mg 04/08/25 09:00 Pantoprazole 40mg Tablet PO 05/08/25 08:59 DAILY [facility] Ranolazine 1,000 mg 04/07/25 21:00 Ranolazine 500mg Er Tablet PO 05/07/25 20:59 BID ABI Rivaroxaban 15 mg 04/07/25 17:30 Rivaroxaban 15mg Tablet PO 05/07/25 17:29 QPMWITHMEAL [facility] Simethicone 80 mg 04/07/25 14:54 Simethicone 80mg Chewable Tablet PO 05/07/25 14:53 BIDP PRN Gastric Reflux Sodium Chloride 10 ml 04/07/25 13:15 Sodium Chloride 0.9% 10ml Vial IV 05/07/25 13:14 NEEDED PRN to Dilute Lorazepam inj Tamsulosin HCl 0.4 mg 04/07/25 21:00 Tamsulosin 0.4mg Capsule PO 05/07/25 20:59 HS [facility] Discontinued Medications Generic Name Dose Route Start Last Admin Trade Name Freq PRN Reason Stop Dose Admin Acetaminophen 1,000 mg 04/07/25 10:54 04/07/25 11:02 Acetaminophen 500mg Tab PO 04/07/25 10:55 1,000 mg ONCE ONE Administration Aspirin 325 mg 04/07/25 10:54 04/07/25 11:02 Aspirin 325mg Tablet PO 04/07/25 10:55 325 mg ONCE ONE Administration Diltiazem HCl 25 mg 04/07/25 10:54 04/07/25 11:02 Diltiazem 25mg/5ml Vial IV 04/07/25 10:55 25 mg ONCE ONE Administration Diphenhydramine HCl 50 mg 04/07/25 13:15 04/07/25 15:08 Diphenhydramine 50mg/Ml Vial IV 04/07/25 13:16 Not Given ONCE ONE Lactated Ringer's 500 mls @ 999 mls/hr 04/07/25 11:03 04/07/25 11:06 Lactated Ringer's 500ml IV 04/07/25 11:33 999 mls/hr .Q31M ONE Administration Magnesium Sulfate 2 gm in 50 mls @ 50 mls/hr 04/07/25 11:03 04/07/25 11:06 Magnesium Sulfate 2gm/50ml Premix IV 04/07/25 12:02 50 mls/hr ONCE ONE Administration ORDERS Category Date Time Status Cardiology Consult [Consult to Cardiology] [CONS] Cons 04/07/25 12:03 Active Routine Consult to Cardiology [CONS] Routine Cons 04/07/25 11:35 Active POCUS Point of Care (ER Only) Stat Exams 04/07/25 10:47 Completed XR chest portable Routine Exams 04/07/25 12:03 Completed BNP [NT Pro Brain Natriuretic Pep.] Stat Lab 04/07/25 10:40 Completed CBC w/Auto Diff [Complete Blood Count Auto Diff] Stat Lab 04/07/25 10:40 Completed CMP [Comprehensive Metabolic Panel] Stat Lab 04/07/25 10:40 Completed Complete Blood Count Auto Diff AMLAB Lab 04/08/25 06:00 Ordered Complete Blood Count Auto Diff AMLAB Lab 04/09/25 06:00 Ordered Complete Blood Count Auto Diff AMLAB Lab 04/10/25 06:00 Ordered Comprehensive Metabolic Panel AMLAB Lab 04/08/25 06:00 Ordered Comprehensive Metabolic Panel AMLAB Lab 04/09/25 06:00 Ordered Comprehensive Metabolic Panel AMLAB Lab 04/10/25 06:00 Ordered D-Dimer Stat Lab 04/07/25 10:40 Completed Free T4 (Free Thyroxine) Stat Lab 04/07/25 10:40 Completed HIV Combo Stat Lab 04/07/25 10:40 Completed Hepatitis C Ab Qual. W/ RFX Stat Lab 04/07/25 10:40 Completed MAG [Magnesium] Stat Lab 04/07/25 10:40 Completed Magnesium AMLAB Lab 04/08/25 06:00 Ordered PHOS [Phosphorous] Stat Lab 04/07/25 10:40 Completed PT INR [Prothrombin Time INR] Stat Lab 04/07/25 10:40 Completed TSH [Thyroid Stimulating Hormone] Stat Lab 04/07/25 10:40 Completed Trop I [Troponin I] Stat Lab 04/07/25 10:40 Completed Troponin I Q3H Lab 04/07/25 14:15 Completed Troponin I Q3H Lab 04/07/25 17:00 Ordered ECG Data Tracing #1: Independently interpreted by myself demonstrate atrial flutter with likely 2-1 conduction without obvious acute ischemic ST change Tracing #2: Independently interpreted to demonstrate normal sinus rhythm with a borderline first-degree AV block and possible left bundle branch block. No acute ischemic ST changes and intervals are otherwise within normal limits. HEART Score History (anamnesis): Highly suspicious ECG: Non-specific disturbance Age: >65 years Risk factors: 3 or more risk factors Medical Decision Narrative: In summary, this 79-year-old presents to the emergency department today with chest pain palpitations. On initial evaluation patient is afebrile, tachycardic into the 150s, but otherwise stable. On exam, is warm and well-perfused. Tachycardic irregular pulse. Otherwise no obvious murmurs. No rhonchi. 1+ bilateral lower extremity edema. He is having some moderate chest pain, high suspicion for ACS, likely unstable angina, will screen for ACS. Regarding his tachyarrhythmia, appears to be atrial flutter, will administer Cardizem IV and reassess.. On reassessment, patient converted to normal sinus rhythm. He is still having chest pressure. Will screen with D-dimer for pulmonary embolism, but low suspicion given already anticoagulated and seems more cardiac in nature. Will also await second troponin. Prompt cardiology consultation. Had a direct discussion with them and ultimately cardiology recommends admission for observation and possible cardiac catheterization. Reassuringly, his troponin is undetectably low, D-dimer negative when applying years criteria, considered CTA, but deferred given this. I reviewed prior records including cardiac MRI report demonstrating good LVEF. Patient received aspirin Cardizem Tylenol 500 cc of IV fluid 2 g of mag for treatment. xr independently diverted by myself demonstrate no acute intrathoracic process Patient's prescriptions were reviewed and notable for Xarelto. Of note, social determinants of health include poor health literacy. Ultimately, given patient's continued chest pain, it was felt to be reasonable to consult cardiology. I did interactive discussion with them and ultimately they recommend admission. They recommended nitro glycerin, but I have deferred this given the patient is borderline hypotensive, but is improving with gentle fluid resuscitation. Ultimately, hospitalist was consulted for admission Dr. Zapata graciously agrees to admit the patient to their service for further workup or definitive management patient be transferred in hemodynamically stable condition Procedures Limited Ultrasound Disclaimer: Limited Cardiac Ultrasound Indication: Chest pain Identified cardiac views: -Cardiac parasternal long axis -Cardiac apical four-chamber Findings: Gross wall motion normal, no pericardial effusion, no evidence of right heart strain. Left trickle ejection fraction globally within normal limits Impression: - As above Images were saved to permanent archive The study was technically adequate CPT: 62161 This study was performed by me, and I personally interpreted all images/videos. Based on my clinical judgement, these images were adequate/inadequate and did/did not necessitate further imaging. Critical Care Critical Care Time Critical Care Time: Yes Attestation: On 04/07/25, the high probability of a clinically significant, sudden or life threatening deterioration of the following system(s) required my full and direct attention, intervention and personal management. The time I documented below is in addition to time spent performing reported procedures but includes the following listed in this critical care notation. Total Time Total Critical Care Time: 35
--- NOTE | 2025-04-07 10:40 | PC.NURSE ---
DR JONES AT BEDSIDE
--- OUTSIDE RECORDS SUMMARY | 2025-04-07 10:51 | XMS_ITS | Encounter Summary ---
[facility] Address [address] [place] [address] Care Team Providers Care Triple Drum Operator Name Role Phone Cheko Heredia MD Primary Care Provider + Reason for Visit * Reason Comments Med Refill Encounter Details Date Type Department Care Team (Late Contact Info) Description 02/25/2025 Refill [facility] [address] [place] [address] Cheko Heredia MD [address] [place] [address] Chronic midline low back pain without sciatica Social History Tobacco Use Types Packs/Day Years Used Date Smoking Tobacco: Every Day Cigarettes 1 50 Smokeless Tobacco: Never Comments:1-1.5 ppd for 50 + years Alcohol [...] Industry Job Start Date Job End Date [employer] Not on file Not on file Not on file documented as of this encounter Plan of Treatment Upcoming Encounters Date Type Department Care Team (Late Contact Info) Description 06/13/2025 3:00 PM EDT Office Visit [facility] [address] [place] [address] Cheko Heredia MD [address] [place] [address] 12/12/2025 2:15 PM EDT Office Visit [facility] [address] [place] [address] Cheko Heredia MD [address] [place] [address] Scheduled Procedures Name Priority Associated Diagnoses Date/Ti me ABLATION A-FIB Atrial fibrillation with RVR Cardiomyopathy, dilated, nonischemic Essential hypertension documented as of this encounter Visit Diagnoses Diagnosis Chronic midline low back pain without sciatica documented in this encounter Care Teams Triple Drum Operator Relationship Specialty Start Date End Date Cheko Heredia MD [address] [place] [address] PCP - General Family Medicine 01/10/22 documented as of this encounter
--- OUTSIDE RECORDS SUMMARY | 2025-04-07 10:51 | XMS_ITS | Encounter Summary ---
[facility] [address] [place] [address] Care Team Providers Care Medical Research Assistant Name Role Phone Cheko Heredia MD Primary Care Provider + Reason for Visit * Reason Comments Med Refill Encounter Details Date Type Department Care Team (Late Contact Info) Description 02/09/2025 Refill [facility] [address] [facility] [place] [address] Cheko Heredia MD [address] [place] [address] Mixed hyperlipidemia Social History Tobacco Use Types Packs/Day Years [...] Industry Job Start Date Job End Date [employer] Not on file Not on file Not on file documented as of this encounter Plan of Treatment Upcoming Encounters Date Type Department Care Team (Late Contact Info) Description 06/13/2025 3:00 PM EDT Office Visit [facility] [address] [place] [address] Cheko Heredia MD [address] [place] [address] 12/12/2025 2:15 PM EDT Office Visit [facility] [address] [place] [address] Cheko Heredia MD [address] [place] [address] Scheduled Procedures Name Priority Associated Diagnoses Date/Ti me ABLATION A-FIB Atrial fibrillation with RVR Cardiomyopathy, dilated, nonischemic Essential hypertension documented as of this encounter Visit Diagnoses Diagnosis Mixed hyperlipidemia documented in this encounter Care Teams Medical Research Assistant Relationship Specialty Start Date End Date Cheko Heredia MD [address] [place] [address] PCP - General Family Medicine 01/10/22 documented as of this encounter
--- OUTSIDE RECORDS SUMMARY | 2025-04-07 10:51 | XMS_ITS | Encounter Summary ---
Author Organization [facility] Address [address] [place] [address] Care Team Providers Care Retail Greeting Card Merchandiser Name Role Phone Horace Kojo Primary Care Provider [phone] Skinny Massey MD Unavailable [phone] Encounter Details Date Type Department Care Team (Latest Contact Info) Description 04/19/2019 Preop Surgical Orders [facility] Physicians - Urology, [address] [phone] Skinny Massey MD [address] [place] [id number] Increased frequency of urination (Primary Dx) Social History Tobacco Use Types Packs/Day Years Used Date Smoking Tobacco: Every Day Smokeless Tobacco: Never Sex and Gender Information Value Date Recorded Sex Assigned at Not on file Legal Sex Male 6:06 PM EST Gender Identity Not on file Sexual Orientation Not on file documented as of this encounter Plan of Treatment Not on file documented as of this encounter Visit Diagnoses Diagnosis Increased frequency of urination- Primary Urinary frequency documented in this encounter Care Teams Retail Greeting Card Merchandiser Relationship Specialty Start Date End Date HoraceKojo [address] [place] [phone] PCP - General 09/18/18 Skinny Massey MD [address] [place] [address] Urology 09/22/22 documented as of this encounter
--- OUTSIDE RECORDS SUMMARY | 2025-04-07 10:51 | XMS_ITS | Encounter Summary ---
[facility] Organization [facility] Address [address] [place] [address] Care Team Providers Care Electrical Lineworker Name Role Phone Cheko Heredia MD Primary Care Provider + Encounter Details Date Type Department Care Team (Late st Contact Info) Description 04/15/2017 External CPT II [facility] [facility] [employer] Social History Tobacco Use Types Packs/Day Years Used Date Smoking Tobacco: Every Day Cigarettes 1 50 Smokeless Tobacco: Never Comments:1-1.5 ppd for 50 + years Alcohol Use Standard Drinks/Week Comments No 0 (1 standard drink = 0.6 oz pur e alcohol) Sex and Gender Information Value Date Recorded Sex Assigned at Not on file Legal Sex Male 12:58 PM EDT Gender Identity Not on file Sexual Orientation Not on file documented as of this encounter Plan of Treatment Upcoming Encounters Date Type Department Care Team (Late st Contact Info) Description 06/13/2025 3:00 PM EDT Office Visit [facility] MEDICINE [address] [place] [address] Cheko Heredia MD [address] [place] [address] 12/12/2025 2:15 PM EDT Office Visit [facility] MEDICINE [address] [place] [address] Cheko Heredia MD [address] [address] Scheduled Procedures Name Priority Associated Diagnoses Date/Ti me ABLATION A-FIB Atrial fibrillation with RVR Cardiomyopathy, dilated, nonischemic Essential hypertension documented as of this encounter Visit Diagnoses Not on filedocumented in this encounter Care Teams Electrical Lineworker Relationship Specialty Start Date End Date Cheko Heredia MD [address] [facility] [place] [address] PCP - General Family Medicine 01/10/22 documented as of this encounter
--- OUTSIDE RECORDS SUMMARY | 2025-04-07 10:51 | XMS_ITS | Clinical Summary ---
Author Organization [facility] Address [address] [place] [address] Care Team Providers Care Carpenter/Labor Name Role Phone Dariusz Vu MD Primary Care Provider [phone] Family History Medical History Relation Name Comments Other cancer Brother Cardiac disorder Mother Diabetes Mother Relation Name Status Comments Brother Mother Social History Tobacco Use Types Packs/Day Years Used Date Smoking Tobacco: Every Day Alcohol Use Standard Drinks/Week Comments No 0 (1 standard drink = 0.6 oz pur e alcohol) Sex and Gender Information Value Date Recorded Sex Assigned at Not on file Legal Sex Male 6:04 PM EDT Gender Identity Not on file Sexual Orientation Not on file Last Filed Vital Signs Vital Sign Reading Time Taken Comments Blood Pressure 132/76 03/06/2023 3:22 PM EDT Pulse - - Temperature - - Respiratory Rate - - Oxygen Saturation - - Inhaled Oxygen Concentration - - Weight 95.7 kg (211 lb) 03/06/2023 3:22 PM EDT Height 180.3 cm (5' 11 ) 03/06/2023 3:22 PM EDT Body Mass Index 29.43 03/06/2023 3:22 PM EDT Plan of Treatment Health Maintenance Due Date Last Done Comments [facility]-Depression Screening 1946 [facility]-/Child/Adol SDOH Screenings 1945 [facility]- SDOH Screenings 1964 [facility]-Adult SDOH Screenings 1964 [facility]-Zoster Vaccines (1 of 2) 1996 [facility]-DTaP,Tdap,and Td Vaccines (1 - Tdap) 11/19/1996 11/18/1996 [facility]-Pneumococcal Vaccine: 50+ Years (2 of 2 - PCV) 09/15/2020 09/15/2019, 06/04/2016 [facility]-RSV Vaccine: 60+ Years or (1 - 1-dose 75+ series) 2021 SZX-AZYAN-38 Vaccine ( season) 2024 08/15/2022, 07/20/2021, 11/25/2020, Additional history exists [facility]-Influenza Vaccine (#1) 05/16/202507/15, 06/15/2022, 06/15/2021, Additional history exists [facility]-Diabetes: Hemoglobin A1C Discontinued 08/15/2022, 02/14/2021 HPV Vaccines Aged Out No longer eligi ble based on patient's age to complete this topic [facility]-HIB Vaccines Aged Out No longer e ligible based on patient's age to complete this topic [facility]-Hepatitis A Vaccines Aged Out No longer eligible based on patient's age to complete this topic [facility]-IPV Vaccines Aged Out No longer e ligible based on patient's age to complete this topic [facility]-Rotavirus Vaccines Aged Out No lo nger eligible based on patient's age to complete this topic Insurance MEDICARE Care Teams Carpenter/Labor Relationship Specialty Start Date End Date Dariusz Vu MD [address] [place] [address] [address] [place] [address] PCP - General 01/26/21
--- OUTSIDE RECORDS SUMMARY | 2025-04-07 10:51 | XMS_ITS | Encounter Summary ---
[facility] Address [address] [place] [address] Care Team Providers Care Data Entry Email Processor Name Role Phone Cheko Heredia MD Primary Care Provider + Reason for Visit * Reason Comments Med Refill Encounter Details Date Type Department Care Team (Late Contact Info) Description 03/10/2025 Refill [facility] [address] [place] [address] Cheko Heredia MD [address] [place] [address] Type 2 diabetes mellitus with hyperglycemia, without long-term current use of insulin Social History Tobacco Use Types Packs/Day Years [...] Industry Job Start Date Job End Date [employer] Not on file Not on file Not on file documented as of this encounter Plan of Treatment Upcoming Encounters Date Type Department Care Team (Late Contact Info) Description 06/13/2025 3:00 PM EDT Office Visit [facility] [address] [place] [address] Cheko Heredia MD [address] [place] [address] 12/12/2025 2:15 PM EDT Office Visit [facility] MED[facility] [address] [place] [address] Cheko Heredia MD [address] [place] [address] Scheduled Procedures Name Priority Associated Diagnoses Date/Ti me ABLATION A-FIB Atrial fibrillation with RVR Cardiomyopathy, dilated, nonischemic Essential hypertension documented as of this encounter Visit Diagnoses Diagnosis Type 2 diabetes mellitus with hyperglycemia, without long-term current use of insulin documented in this encounter Care Teams Data Entry Email Processor Relationship Specialty Start Date End Date Cheko Heredia MD [address] [place] [address] PCP - General Family Medicine 01/10/22 documented as of this encounter
--- OUTSIDE RECORDS SUMMARY | 2025-04-07 10:51 | XMS_ITS | Encounter Summary ---
Author Organization [facility] Address [address] [place] [address] Care Team Providers Care Hoop Maker Helper Machine Name Role Phone Cheko Heredia MD Primary Care Provider + Encounter Details Date Type Department Care Team (Latest Contact Info) Description 03/11/2025 Travel Social History Tobacco Use Types Packs/Day Years [...] Industry Job Start Date Job End Date [employer] Not on file Not on file Not on file documented as of this encounter Plan of Treatment Upcoming Encounters Date Type Department Care Team (Late st Contact Info) Description 06/13/2025 3:00 PM EDT Office Visit [facility] MEDICINE [address] [facility] [place] [address] Cheko Heredia MD [address] [place] [address] 12/12/2025 2:15 PM EDT Office Visit [facility] MED[facility] [address] [place] [phone] Cheko Heredia MD [address] [place] [address] Scheduled Procedures Name Priority Associated Diagnoses Date/Ti me ABLATION A-FIB Atrial fibrillation with RVR Cardiomyopathy, dilated, nonischemic Essential hypertension documented as of this encounter Visit Diagnoses Not on filedocumented in this encounter Care Teams Hoop Maker Helper Machine Relationship Specialty Start Date End Date Cheko Heredia MD [address] [place] [address] PCP - General Family Medicine 01/10/22 documented as of this encounter
--- OUTSIDE RECORDS SUMMARY | 2025-04-07 10:51 | XMS_ITS | Encounter Summary ---
[facility] Address [address] [place] [address] Care Team Providers Care B2B Account Executive Name Role Phone Cheko Heredia MD Primary Care Provider + Reason for Visit * Reason Onset Date Comments Med Refill 02/08/2025 Encounter Details Date Type Department Care Team (Late st Contact Info) Description 02/08/2025 Refill [facility] [address] [place] [address] Cheko Heredia MD [address] [place] [address] Chronic pain syndrome; Spondylosis of lumbar region without myelopathy or radiculopathy Social History Tobacco Use Types Packs/Day Years [...] Industry Job Start Date Job End Date [employer] Not on file Not on file Not on file documented as of this encounter Miscellaneous Notes * Telephone Encounter - Susanne Nelson RegSched Rep - 02/08/2025 3:30 PM EDT Caller: HsuMino noe Relationship: Self Best call back number: [phone] Requested Prescriptions: Requested Prescriptions Pending Prescriptions Disp Refills oxyCODONE-acetaminophen (PERCOCET) 5-325 MG per tablet 90 tablet 0 Sig: Take 1 tablet by mouth Every 8 (Eight) Hours As Needed for Severe Pain. Pharmacy where request should be sent: [facility] - [facility] [place] - [address] [facility] [phone] [facility] [phone] Last office visit with prescribing clinician: 12/10/2024 Last telemedicine visit with prescribing clinician: Visit date not found Next office visit with prescribing clinician: 03/11/2025 Additional details provided by patient: PATIENT HAS 4 PILLS LEFT. Does the patient have less than a 3 day supply: [x] Yes [] No Would you like a call back once the refill request has been completed: [] Yes [x] No If the office needs to give you a call back, can they leave a voicemail: [] Yes [x] No Charlie Bro Rep 02/08/25 15:30 EDT documented in this encounter Plan of Treatment Upcoming Encounters Date Type Department Care Team (Late st Contact Info) Description 06/13/2025 3:00 PM EDT Office Visit [facility] MEDICINE [address] [place] [address] Cheko Heredia MD [address] [place] [address] 12/12/2025 2:15 PM EDT Office Visit [facility] MEDICINE [address] [place] [address] Cheko Heredia MD [address] [place] [address] Scheduled Procedures Name Priority Associated Diagnoses Date/Ti me ABLATION A-FIB Atrial fibrillation with RVR Cardiomyopathy, dilated, nonischemic Essential hypertension documented as of this encounter Visit Diagnoses Diagnosis Chronic pain syndrome Spondylosis of lumbar region without myelopathy or radiculopathy documented in this encounter Care Teams B2B Account Executive Relationship Specialty Start Date End Date Cheko Heredia MD [address] [facility] [place] [address] PCP - General Family Medicine 01/10/22 documented as of this encounter
--- OUTSIDE RECORDS SUMMARY | 2025-04-07 10:51 | XMS_ITS | Clinical Summary ---
Author Organization [employer] 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 (SNOMED CT) 05/08 Active 05/08 Lio Corcoran MD Abnormal grief reaction Hx of cardiac arrhythmias 374563832 (SNOMED CT) 05/08 Active 05/08 Lio Corcoran MD H/O: heart disorder Insomnia 715503121 (SNOMED CT) 05/08 Active 05/08 Lio Corcoran MD Insomnia Back pain 423549604 (SNOMED CT) 05/08 Active 05/08 Lio Corcoran MD Backache Fatigue 30882372 (SNOMED CT) 05/08 Active 05/08 Lio Corcoran MD Fatigue Depression / anxiety 249663940 (SNOMED CT) 05/08 Active 05/08 Lio Corcoran MD Mixed anxiety and depressive disorder Anticoagulati on 698973688 (SNOMED CT) 05/08 Active 05/08 Lio Corcoran MD Anticoagulant therapy Stented coronary artery 443564694 (SNOMED CT) 05/08 Active 05/08 Lio Corcoran MD Stented coronary artery Medications Medication Instructions Start Date Stop Date Generic Name NDC Provider MIRTAZAPINE 15 MG TABS Take 1 pill by mouh at bedtime MIRTAZAPINE [id number] Lio Corcoran MD MIRTAZAPINE 7.5 MG TABS take 1 tablet nightly by mouth MIRTAZAPINE 61095104544 Lio Corcoran MD CYMBALTA 30 MG CPEP TAKE 1 CAPSULE BY MOUTH EVERY NIGHT for 30 days and then stop it (we are weaning this medicine to start new medicine end of Oct) DULOXETINE HCL 71292882053 Lio Corcoran MD CYMBALTA 30 MG CPEP TAKE 1 CAPSULE BY MOUTH EVERY NIGHT for 30 days and then stop it (we are weaning this medicine to start new medicine end of Oct) DULOXETINE HCL 09933098025 Lio Corcoran MD CYMBALTA 30 MG CPEP TAKE 1 CAPSULE BY MOUTH EVERY NIGHT (weaning this medicine for 30 days to start new medicine) DULOXETINE HCL 57255649413 Lio Corcoran MD DULOXETINE HCL 60 MG CPEP TAKE 1 CAPSULE BY MOUTH EVERY NIGHT DULOXETINE HCL 96117905530 Lio Corcoran MD MIRTAZAPINE 7.5 MG TABS take 1 tablet nightly by mouth MIRTAZAPINE 22350212452 Lio Corcoran MD CENTRUM SILVER ADULT 50+ TABS TAKE 1 TABLET BY MOUTH EACH DAY MULTIPLE VITAMINS-HOUSETRAILER SERVICER ALS 08376274611 Lio Corcoran MD FISH OIL 1000 MG CAPS TAKE 1 CAPSULE BY MOUTH 2 TIMES A DAY OMEGA-3 FATTY ACIDS 70639368180 Lio Corcoran MD PREVAGEN 10 MG CAPS APOAEQUORIN 34233315701 Lio Corcoran MD DIAZEPAM 5 MG TABS TAKE 1 TABLET BY MOUTH 3 TIMES A DAY NEEDED FOR ANXIETY DIAZEPAM 36708367438 Lio Corcoran MD OXYCODONE HCL 5 MG CAPS TAKE 1 BY MOUTH 3 TIMES A DAY OXYCODONE HCL 91438196741 Lio Corcoran MD SIMVASTATIN 20 MG TABS TAKE 1 TABLET BY MOUTH AT BEDTIME FOR CHOLESTEROL SIMVASTATIN 89206714177 Lio Corcoran MD XARELTO 20 MG TABS TAKE 1 TABLET BY MOUTH ONCE A DAY RIVAROXABAN 63027392374 Lio Corcoran MD OMEPRAZOLE 20 MG CPDR TAKE 1 CAPSULE BY MOUTH ONCE A DAY OMEPRAZOLE 36062367324 Lio Corcoran MD METOPROLOL SUCCINATE ER 25 MG [id number]-[id number] TAKE 1 TABLET BY MOUTH ONCE A DAY METOPROLOL SUCCINATE 68203439142 Lio Corcoran MD TAMSULOSIN HCL 0.4 MG CAPS TAMSULOSIN HCL 04753297830 Lio Corcoran MD LISINOPRIL 10 MG TABS TAKE 1 TABLET BY MOUTH 1 TIME A DAY LISINOPRIL 57481345658 Lio Corcoran MD AMIODARONE HCL 200 MG TABS TAKE 1 TABLET BY MOUTH TWICE A DAY AMIODARONE HCL [id number] Lio Corcoran MD DULOXETINE HCL 60 MG CPEP TAKE 1 CAPSULE BY MOUTH EVERY NIGHT DULOXETINE HCL 64263145775 Lio Corcoran MD Medications Administered No information available. Allergies, Adverse Reactions, Alerts Observed no known allergies at Results Date Name Value Unit Range Flag Description Lab Report: LIPID PANEL WITH REFLEX TO DIRECT LDL, LIPID PANEL WITH REFL ... HGBA1C 5.9 % OF TOTAL HGB % <5.7 H Hemoglobin A1c/Hemoglobin, total in Blood - % VIT D 25-OH 30 ng/mL 30-100 N 25-Hydrox ycalciferol [Mass/volume] in Serum or Plasma TSH 1.63 u[iU]/mL 0.40-4.50 N Thyrotropi n [Units/volume] in Serum or Plasma BASO % MANU 0.4 % N basophils as percent of blood leukocytes, manual count EOS % MANU 1.7 % N eosinophil s as percent of blood leukocytes, manual count MONOCYTE % 7.6 % N Monocytes/ 100 leukocytes in Blood by Automated count LYMPH% P BLD 28.9 % N lymphocy nayely as percent of blood leukocytes PMN % 61.4 % N Neutrophils/1 00 leukocytes in Blood by Automated count ABS BASOS 19 {Cells}/u L 0-200 N Basophils [#/volume] in Blood ABS EOS 82 {Cells}/u L 15-500 N Eosinophils [#/volume] in Blood ABS MONOS 365 {Cells}/u L 200-950 N Monocytes [#/volume] in Blood ABSLYMPHCT 1387 {Cells}/u L 850-3900 N Lymphocytes [#/volume] in Blood ABS NEUTROPH 2947 CELLS/UL 10*3/uL 6210-3877 N Neutrophils [#/volume] in Blood MPV 9.5 fL 7.5-12.5 N Platelet dieter n volume [Entitic volume] in Blood by Sully PLATELETK/UL 221 THOUSAND/UL 10*3/uL 140-400 N platelet count RDW 14.6 % 11.0-15.0 N Erythrocyte distribution width [Ratio] by Automated count OL-MCHC 31.6 g/dL 32.0-36.0 L mean corpus cular hemoglobin concentration, rbc MCH 27.1 pg 27.0-33.0 N MCH [Entiti c mass] by Automated count MCV 85.9 fL 80.0-100.0 N MCV [Entit ic volume] by Automated count HCT 37.7 % 38.5-50.0 L Hematocrit [Volume Fraction] of Blood by Automated count HGB 11.9 g/dL 13.2-17.1 L Hemoglobin [Mass/volume] in Blood RBC M/UL 4.39 MILLION/UL 10*6/uL 4.20-5.80 N re d blood count WBC CT BLOOD 4.8 10*3/uL 3.8-10.8 N leukocy te count, blood SGPT (ALT) 17 U/L 9-46 N Alanine aminotransferase [Enzymatic activity/volume] in Serum or Plasma SGOT (AST) 19 U/L 10-35 N Aspartate aminotransferase [Enzymatic activity/volume] in Serum or Plasma ALK PHOS 85 U/L 35-144 N Alkaline murray sphatase [Enzymatic activity/volume] in Blood BILI TOTAL 0.3 mg/dL 0.2-1.2 N Bilirubin. total [Mass/volume] in Serum or Plasma A/G RATIO 1.8 (calc) 1.0-2.5 N Albumin/ Globulin [Mass Ratio] in Serum or Plasma GLOBULIN TOT 2.3 G/DL (CALC) g/dL 1.9-3.7 N Globulin [Mass/volume] in Serum ALBUMIN EOP 4.1 g/dL 3.6-5.1 N Albumin [ Mass/volume] in Serum or Plasma by Electrophoresis PROTEIN, TOT 6.4 g/dL 6.1-8.1 N Protein [Mass/volume] in Serum or Plasma CALCIUM 9.1 mg/dL 8.6-10.3 N Calcium [Moles/volume] in Serum or Plasma CO2 29 mmol/L 20-32 N Carbon dioxid e, total [Moles/volume] in Venous blood CHLORIDE BLD 106 mmol/L 98-110 N chloride , blood POTASSIUM 4.6 mmol/L 3.5-5.3 N Potassium [Moles/volume] in Serum or Plasma SODIUM 140 mmol/L 135-146 N Sodium [Moles /volume] in Serum or Plasma BUN/CREAT NOT APPLICABLE (calc) 6-22 Urea nitrogen/Creatinine [Mass Ratio] in Serum or Plasma EGFR IF AFA 92 mL/min/1. 73m2 >OR = 60 N Glomerular filtratio n rate/1.73 sq M.predicted among blacks [Volume Rate/Area] in Serum, Plasma or Blood by Creatinine-based formula (MDRD) EGFR 79 mL/min/1. 73m2 >OR = 60 N Glomerular filtratio n rate/1.73 sq M.predicted [Volume Rate/Area] in Serum, Plasma or Blood by Creatinine-based formula (MDRD) CREATININE 0.95 mg/dL 0.70-1.18 N Creatini ne [Mass/volume] in Serum or Plasma BUN 15 mg/dL 7-25 N Urea nitrogen [Mass/volume] in Serum or Plasma GLUCOSE SER 84 mg/dL 65-99 N Glucose [ Mass/volume] in Serum or Plasma NON-HDL CHOL 126 MG/DL (CALC) mg/dL <130 N cholesterol, non -HDL, total CHOL/HDL % 3.6 (calc) <5.0 N cholest tamela/HDL ratio, serum, percent LDL 92 MG/DL (CALC) mg/dL N Veronica sterol in LDL [Mass/volume] in Serum or Plasma - mg/dL TRIGLYC TOT 246 mg/dL <150 H Triglycer mitra [Mass/volume] in Serum or Plasma - mg/dL HDL 48 mg/dL >OR = 40 N Cholesterol in HDL [Mass/volume] in Serum or Plasma - mg/dL CHOLESTEROL 174 mg/dL <200 N Cholester ol [Mass/volume] in Serum or Plasma - mg/dL Plan of Care Type Date Detail Pending order T1 CBC with diff Pending order T1 CMP Pending order T2 Vitamin D 25 Hydroxy Pending order T1 TSH reflex to free T4 Pending order T1 B12 Pending order T1 Lipid Panel Pending order T1 HGBA1c Procedures Code Procedure Name Date Entry Date G2 Medicare Telehealth G202 Medicare Telehealth G202 Medicare Telehealth CPT-36233() Psychotherapy 45m -No [facility]() 05/10/05 G2025 Medicare Telehealth [id number] Medication Reconciliation CPT-3077F Most recent systolic blood pressure >=140 mm Hg CPT-3078F Most recent diastoli c blood pressure <80 mm Hg CPT-12322() Psychotherapy 45m -No [facility]() 20 03/09/10 CPT-82774() Psychotherapy 45m -No [facility]() 20 04/08/11 CPT-44925() Psychotherapy 60m Crises- No E&M() 202 CPT-41382() Psychotherapy 45m -No [facility]() 20 04/07/19 CPT-1159F Medication list docu mented in medical record [facility] 6399 T1 CBC with diff [facility] 60578 T1 CMP [facility] 54312 T2 Vitamin D 25 Hydroxy 2019 [facility] 71953 T1 TSH reflex to free T4 202 [facility] 927 T1 B12 [facility] 48927 T1 Lipid Panel [facility] 496 T1 HGBA1c Vital Signs Date Name Value Unit Description BP Diastolic 78 mm[Hg] blood pressu re, diastolic BP Systolic 209 mm[Hg] blood pressur e, systolic Heart Rate 76 /min pulse rate Heart Rate 72 /min pulse rate 10 Weight Measured 227 [lb_av] weight E& M Weight Measured 227 [lb_av] weight E& M Weight Measured 103.18 kg weight in kilograms E&M Immunizations No information available. Advance Directives No information available.
--- OUTSIDE RECORDS SUMMARY | 2025-04-07 10:51 | XMS_ITS | Encounter Summary ---
[facility] Address [address] [place] [address] Care Team Providers Care Fire Chief Name Role Phone Cheko Heredia MD Primary Care Provider + Reason for Visit * Reason Comments Med Refill Encounter Details Date Type Department Care Team (Late st Contact Info) Description 04/30/2022 Refill [facility] [address] [facility] [place] [address] Cheko Heredia MD [address] [facility] [place] [address] Chronic pain syndrome; Anxiety about health Social History Tobacco Use Types Packs/Day Years Used Date Smoking Tobacco: Every Day Cigarettes 1 50 Smokeless Tobacco: Never Comments:1-1.5 ppd for 50 + years Alcohol Use Standard Drinks/Week Comments No 0 (1 standard drink = 0.6 oz pur e alcohol) Beer in the Past PHQ-2 Answer Date Recorded Retired PHQ-9: Brief Depression Severity Measure Score 15 01/10/2022 Sex and Gender Information Value Date Recorded Sex Assigned at Not on file Legal Sex Male 12:58 PM EDT Gender Identity Not on file Sexual Orientation Not on file Occupation Industry Job Start Date Job End Date [employer] Not on file Not on file Not on file documented as of this encounter Plan of Treatment Upcoming Encounters Date Type Department Care Team (Late st Contact Info) Description 06/13/2025 3:00 PM EDT Office Visit [facility] MED[facility]INE [address] [place] [address] Cheko Heredia MD [address] [place] [address] 12/12/2025 2:15 PM EDT Office Visit [facility] [address] [place] [address] Cheko Heredia MD [address] [place] [address] Scheduled Procedures Name Priority Associated Diagnoses Date/Ti me ABLATION A-FIB Atrial fibrillation with RVR Cardiomyopathy, dilated, nonischemic Essential hypertension documented as of this encounter Visit Diagnoses Diagnosis Chronic pain syndrome Anxiety about health documented in this encounter Additional Health Concerns Assessment Noted Time PHQ-2 Depression Total Score: 5 01/11/20 22 1:44 PM EDT documented as of this encounter Care Teams Fire Chief Relationship Specialty Start Date End Date Cheko Heredia MD [address] [place] [address] PCP - General Family Medicine 01/10/22 documented as of this encounter
--- OUTSIDE RECORDS SUMMARY | 2025-04-07 10:51 | XMS_ITS | Encounter Summary ---
[facility] Organization [facility] Address [address] [place] [address] Care Team Providers Care Real Estate Intern Name Role Phone Cheko Heredia MD Primary Care Provider + Encounter Details Date Type Department Care Team (Late Contact Info) Description 12/12/2024 Results Follow-Up [facility] MED[facility] [address] [facility] [place] [address] Cheko Heredia MD [address] [facility] [place] [address] Social History Tobacco Use Types Packs/Day Years [...] Industry Job Start Date Job End Date [employer] Not on file Not on file Not on file documented as of this encounter Plan of Treatment Upcoming Encounters Date Type Department Care Team (Late Contact Info) Description 06/13/2025 3:00 PM EDT Office Visit [facility] [address] [place] [address] Cheko Heredia MD [address] [place] [address] 12/12/2025 2:15 PM EDT Office Visit [facility] [address] [place] [address] Cheko Heredia MD [address] [place] [address] Scheduled Procedures Name Priority Associated Diagnoses Date/Ti me ABLATION A-FIB Atrial fibrillation with RVR Cardiomyopathy, dilated, nonischemic Essential hypertension documented as of this encounter Visit Diagnoses Not on filedocumented in this encounter Care Teams Real Estate Intern Relationship Specialty Start Date End Date Cheko Heredia MD [address] [place] [address] PCP - General Family Medicine 01/10/22 documented as of this encounter
--- OUTSIDE RECORDS SUMMARY | 2025-04-07 10:52 | XMS_ITS | Encounter Summary ---
Author Organization [employer] ([place], [place], [place], [place]) Address [address] [place] [address] Care Team Providers Care [employer] Name Role Phone Unavailable Primary Care Provider Unavailabl e Encounter Details Date Type Department Care Team (Late st Contact Info) Description 02/09/[address] [facility] Family Medicine [facility] [place] [address] ProviderSoham MD [facility] [place] [address] Social History Tobacco Use Types Packs/Day Years Used Date Smoking Tobacco: Never Assessed Sex and Gender Information Value Date Recorded Sex Assigned at Male 03/14/2022 12:41 PM CDT Legal Sex Male 6:35 PM CDT Gender Identity Male 03/14/2022 12:41 PM CDT Sexual Orientation Not on file documented as of this encounter Miscellaneous Notes * Cerner Conversion Note - Soham ProviderMD - 02/09/2019 12:11 PM CDT [facility] [place] [address] MINO HSU :1945 Visit Time:02/09/2019 What to do next Your Diagnosis Benign prostatic hyperplasia with lower urinary tract symptoms, Benign prostatic hyperplasia with lower urinary tract symptoms Instructions From Your Care Team Diet after Discharge: Resume usual diet as tolerated, _, _ Activity after Discharge: _, Rest and relax today, No strenuous activity 1 week walk frequently Lifting Restrictions: No heavy lifting over 10 pounds 1 week Driving after Discharge: Do not drive for 24 hours Showering/Bathing: May shower, No tub bathing, soaking or swimming Notify Provider of: fever or chills, excessive bleeding, no urine output Wound/Incision Care after Discharge: Keep operative site/wound site clean and dry, _ Medical Equipment for Home Use: hill catheter Discharge Follow Up Instructions: f/u 02/[address] Odmo for catheter removal Activity: Discharge Activity: Activity as tolerated Diet: Discharge Diet: Resume usual diet as tolerated Follow-Up Appointments Follow Up with [facility] When 02/12/2019 04:15 PM EDT Comments Appointment has been made Where: [address] [place] [address]- [employer] (1) Medications What How Much When Instructions Next Dose oxyCODONE 7.5 Milligram(s) Oral Every 6 Hours as needed for Pain (Mild 1-3) alfuzosin 10 Milligram(s) Oral Every Day amiodarone 200 Milligram(s) Oral Two Times A Day aspirin (aspirin 81 mg oral delayed release tablet) 1 Tablet(s) Oral Every Day diazePAM 5 Milligram(s) Oral At Bedtime DULoxetine 60 Milligram(s) Oral Every Day lisinopril 10 Milligram(s) Oral Every Day metoprolol (metoprolol tartrate) 25 Milligram(s) Oral Every Day omega-3 polyunsaturated fatty acids (Fish Oil) 1,000 Milligram(s) Oral Every Day omeprazole 20 Milligram(s) Oral Every Day rivaroxaban (Xarelto (indication required)) 20 Milligram(s) Oral Every Day simvastatin 20 Milligram(s) Oral Every Day Take your medications faithfully. Do NOT skip medication. Do NOT stop taking medications without the direction of a physician. Carry a list of your medications with you at all times, and take this medication list with you to your first follow up visit. Report any side effects. Avoid herbal remedies unless discussed with your physician. As part of your treatment plan, your physician may have prescribed a limited course of a controlled substance. This medication may be given to help people with moderate or severe pain or for other medical conditions, but there are risks involved with treatment. Common side effects may include nausea, constipation, drowsiness, sweating, itching, dry mouth, and rash. More serious side effects may include cognitive and motor impairment, like problems with thinking, concentrating, alertness, and movement (e.g. slowed reflexes), and driving and operating heavy machinery can be dangerous. It is important for you to talk to your physician if you have these side effects or questions. These controlled substances can produce physical dependence and be habit-forming if taken for an extended period of time, which means that the body has gotten used to them and may experience withdrawal symptoms if they are abruptly stopped. Withdrawal symptoms can include runny nose, sweating, goose bumps, diarrhea, abdominal cramping, rapid heartbeat, difficulty sleeping, and nervousness. Please dispose of unused and medications per pharmacy guidance. Education Materials Indwelling Urinary Catheter Care, Adult An indwelling urinary catheter is a thin, flexible, germ-free (sterile) tube that is placed into the bladder to help drain urine out of the body. The catheter is inserted into the part of the body that drains urine from the bladder (urethra). Urine drains from the catheter into a drainage bag outside of the body. Taking good care of your catheter will keep it working properly and help to prevent problems from developing. What are the risks? Bacteria may get into your bladder and cause a urinary tract infection. ??? Urine flow can become blocked. This can happen if the catheter is not working correctly, or if you have sediment or a blood clot in your bladder or the catheter. ??? Tissue near the catheter may become irritated and bleed. How to wear your catheter and your drainage bag Supplies needed ??? Adhesive tape or a leg strap. ??? Alcohol wipe or soap and water (if you use tape). ??? A clean towel (if you use tape). ??? Overnight drainage bag. ??? Smaller drainage bag (leg bag). Wearing your catheter and bag Use adhesive tape or a leg strap to attach your catheter to your leg. ??? Make sure the catheter is not pulled tight. ??? If a leg strap gets wet, replace it with a dry one. ??? If you use adhesive tape: 1. Use an alcohol wipe or soap and water to wash off any stickiness on your skin where you had tape before. 2. Use a clean towel to pat-dry the area. 3. Apply the new tape. You should have received a large overnight drainage bag and a smaller leg bag that fits underneath clothing. ??? You may wear the overnight bag at any time, but you should not wear the leg bag at night. ??? Always wear the leg bag below your knee. ??? Make sure the overnight drainage bag is always lower than the level of your bladder, but do not let it touch the floor. Before you go to sleep, hang the bag inside a wastebasket that is covered by a clean plastic bag. How to care for your skin around the catheter Supplies needed ??? A clean washcloth. ??? Water and mild soap. ??? A clean towel. Caring for your skin and catheter ??? Every day, use a clean washcloth and soapy water to clean the skin around your catheter. 1. Wash your hands with soap and water. 2. Wet a washcloth in warm water and mild soap. 3. Clean the skin around your urethra. ? If you are female: ? Use one hand to gently spread the folds of skin around your vagina (labia). ? With the washcloth in your other hand, wipe the inner side of your labia on each side. Do this in a ljfsd-bh-buln direction. ? If you are male: ? Use one hand to pull back any skin that covers the end of your penis (foreskin). ? With the washcloth in your other hand, wipe your penis in small circles. Start wiping at the tip of your penis, then move outward from the catheter. 4. With your free hand, hold the catheter close to where it enters your body. Keep holding the catheter during cleaning so it does not get pulled out. 5. Use your other hand to clean the catheter with the washcloth. ? Only wipe downward on the catheter. ? Do not wipe upward toward your body, because that may push bacteria into your urethra and cause infection. 6. Use a clean towel to pat-dry the catheter and the skin around it. Make sure to wipe off all soap. 7. Wash your hands with soap and water. ??? Shower every day. Do not take baths. ??? Do not use cream, ointment, or lotion on the area where the catheter enters your body, unless your health care provider tells you to do that. ??? Do not use powders, sprays, or lotions on your genital area. ??? Check your skin around the catheter every day for signs of infection. Check for: ? Redness, swelling, or pain. ? Fluid or blood. ? Warmth. ? Pus or a bad smell. How to empty the drainage bag Supplies needed ??? Rubbing alcohol. ??? Gauze pad or cotton ball. ??? Adhesive tape or a leg strap. Emptying the bag Empty your drainage bag (your overnight drainage bag or your leg bag) when it is ? full, or at least 2???3 times a day. Do not clean your drainage bag unless your health care provider tells you to do that. 1. Wash your hands with soap and water. 2. Detach the drainage bag from your leg. 3. Hold the drainage bag over the toilet or a clean container. Make sure the drainage bag is lower than your hips and bladder. This stops urine from going back into the tubing and into your bladder. 4. Open the pour spout at the bottom of the bag. 5. Empty the urine into the toilet or container. Do not let the pour spout touch any surface. This precaution is important to prevent bacteria from getting in the bag and causing infection. 6. Apply rubbing alcohol to a gauze pad or cotton ball. 7. Use the gauze pad or cotton ball to clean the pour spout. 8. Close the pour spout. 9. Attach the bag to your leg with adhesive tape or a leg strap. 10. Wash your hands with soap and water. How to change the drainage bag Supplies needed: ??? Alcohol wipes. ??? A clean drainage bag. ??? Adhesive tape or a leg strap. Changing the bag Replace your drainage bag with a clean bag once a month. Replace the bag sooner if it leaks, starts to smell bad, or looks dirty. 1. Wash your hands with soap and water. 2. Detach the dirty drainage bag from your leg. 3. Pinch the catheter with your fingers so that urine does not spill out. 4. Disconnect the catheter tube from the drainage tube at the connection valve. Do not let the tubes touch any surface. 5. Clean the end of the catheter tube with an alcohol wipe. Use a different alcohol wipe to clean the end of the drainage tube. 6. Connect the catheter tube to the drainage tube of the clean bag. 7. Attach the clean bag to your leg with adhesive tape or a leg strap. Avoid attaching the new bag too tightly. 8. Wash your hands with soap and water. General instructions ??? Never pull on your catheter or try to remove it. Pulling can damage your internal tissues. ??? Always wash your hands before and after you handle your catheter or drainage bag. Use a mild, fragrance-free soap. If soap and water are not available, use hand solar development engineer. ??? Always make sure there are no twists or bends (kinks) in the catheter tube. ??? Always make sure there are no leaks in the catheter or drainage bag. ??? Drink enough fluid to keep your urine pale yellow. ??? Do not take baths, swim, or use a hot tub. ??? If you are female, wipe from front to back after having a bowel movement. Contact a health care provider if: ??? Your urine is cloudy. ??? Your urine smells unusually bad. ??? Your catheter gets clogged. ??? Your catheter starts to leak. ??? Your bladder feels full. Get help right away if: ??? You have redness, swelling, or pain where the catheter enters your body. ??? You have fluid, blood, pus, or a bad smell coming from the area where the catheter enters your body. ??? The area where the catheter enters your body feels warm to the touch. ??? You have a fever. ??? You have pain in your abdomen, legs, lower back, or bladder. ??? You see blood in the catheter. ??? Your urine is pink or red. ??? You have nausea, vomiting, or chills. ??? Your urine is not draining into the bag. ??? Your catheter gets pulled out. Summary ??? An indwelling urinary catheter is a thin, flexible, germ-free (sterile) tube that is placed into the bladder to help drain urine out of the body. ??? The catheter is inserted into the part of the body that drains urine from the bladder (urethra). ??? Take good care of your catheter to keep it working properly and help prevent problems from developing. ??? Always wash your hands before and after you handle your catheter or drainage bag. ??? Never pull on your catheter or try to remove it. This information is not intended to replace advice given to you by your health care provider. Make sure you discuss any questions you have with your health care provider. Document Released: 09/01/2006 Document Revised: 04/17/2018 Document Reviewed: 04/17/2018 [email or web address] Interactive Patient Education ?? 2019 [email or web address] Prostate Laser Surgery, Care After This sheet gives you information about how to care for yourself after your procedure. Your health care provider may also give you more specific instructions. If you have problems or questions, contact your health care provider. What can I expect after the procedure? For the first few weeks after the procedure: ??? You will feel a need to urinate often. ??? You may have blood in your urine. ??? You may feel a sudden need to urinate. Once your urinary catheter is removed, you may have a burning feeling when you urinate, especially at the end of urination. This feeling usually passes within 3???5 days. Follow these instructions at home: Activity ??? Return to your normal activities as told by your health care provider. Ask your health care provider what activities are safe for you. ??? Do not do vigorous exercise for 1 week or as told by your health care provider. ??? Do not lift anything that is heavier than 10 lb (4.5 kg) until your health care provider say it is safe. ??? Avoid sexual activity for 4???6 weeks or as told by your health care provider. ??? Do not ride in a car for extended periods of time for 1 month or as told by your health care provider. ??? Do not drive for 24 hours if you were given a medicine to help you relax (sedative). Diet ??? Eat foods that are high in fiber, such as fresh fruits and vegetables, whole grains, and beans. ??? Drink enough fluid to keep your urine clear or pale yellow. Medicines ??? Take ztwp-qzv-fbfucug and prescription medicines, including stool softeners, only as told by your health care provider. ??? If you were prescribed an antibiotic medicine, take it as told by your health care provider. Do not stop taking the antibiotic even if you start to feel better. General instructions ??? If you were given elastic support stockings, wear them as told by your health care provider. ??? Do not strain to have a bowel movement. Straining may lead to bleeding from the prostate and cause clots to form and cause trouble urinating. ??? Keep all follow-up visits as told by your health care provider. This is important. Contact a health care provider if: ??? You have a fever or chills. ??? You have spasms or pain with the urinary catheter still in place. ??? Once the catheter has been removed, you experience difficulty starting your stream when attempting to urinate. Get help right away if: ??? There is a blockage in your catheter. ??? Your catheter has been removed and you are suddenly unable to urinate. ??? Your urine smells unusually bad. ??? You start to have blood clots in your urine. ??? The blood in your urine becomes persistent or gets thick. ??? You develop chest pains. ??? You develop shortness of breath. ??? You develop swelling or pain in your leg. Summary ??? You may notice urinary symptoms for a few weeks after your procedure. ??? Follow instructions from your health care provider regarding activity restrictions such as lifting, exercise, and sexual activity. ??? Contact your health care provider if you have any unusual symptoms during your recovery. This information is not intended to replace advice given to you by your health care provider. Make sure you discuss any questions you have with your health care provider. Document Released: 09/01/2006 Document Revised: 04/18/2017 Document Reviewed: 04/18/2017 [email or web address] Interactive Patient Education ?? 2019 [employer]. Outpatient Surgery, Adult, Care After These instructions provide you with information about caring for yourself after your procedure. Your health care provider may also give you more specific instructions. Your treatment has been planned according to current medical practices, but problems sometimes occur. Call your health care provider if you have any problems or questions after your procedure. What can I expect after the procedure? After the procedure, it is common to have: ??? Tenderness and numbness at the surgical site. ??? Swelling and bruising around the surgical site. ??? Nausea. Follow these instructions at home: For at least 24 hours after the procedure: ??? Have a responsible adult stay with you. It is important to have someone help care for you until you are awake and alert. ??? Rest as needed. ??? Do not: ? Participate in activities in which you could fall or become injured. ? Drive. ? Use heavy machinery. ? Drink alcohol. ? Take sleeping pills or medicines that cause drowsiness. ? Make important decisions or sign legal documents. ? Take care of children on your own. Activity ??? Return to your normal activities as told by your health care provider. Ask your health care provider what activities are safe for you. ??? Do not lift anything that is heavier than 10 lb (4.5 kg), or the limit that your health care provider tells you, until your health care provider says it is okay. ??? Do not play contact sports until your health care provider says it is okay. Incision care ??? Follow instructions from your health care provider about how to take care of an incision, if you have one. Make sure you: ? Wash your hands with soap and water before you change your bandage (dressing). If soap and water are not available, use hand solar development engineer. ? Change your dressing as told by your health care provider. ? Leave stitches (sutures), skin glue, or adhesive strips in place. These skin closures may need to stay in place for 2 weeks or longer. If adhesive strip edges start to loosen and curl up, you may trim the loose edges. Do not remove adhesive strips completely unless your health care provider tells you to do that. ??? Check your incision area every day for signs of infection. Check for: ? More redness, swelling, or pain. ? More fluid or blood. ? Warmth. ? Pus or a bad smell. Medicines ??? Take reqh-upz-wnpvvya and prescription medicines only as told by your health care provider. ??? Do not drive or use heavy machinery while taking prescription pain medicines. Eating and drinking ??? Follow the diet recommended by your health care provider. ??? When you are hungry, begin eating light and bland foods such as toast. Gradually return to your regular diet. ??? If you vomit: ? Drink water, juice, or soup when you can drink without vomiting. ? Make sure you have little or no nausea before eating solid foods. General instructions ??? If you have sleep apnea, surgery and certain medicines can increase your risk for breathing problems. Follow instructions from your HCP about wearing your sleep device: ? Anytime you are sleeping, including during daytime naps. ? While taking prescription pain medicines, sleeping medicines, or medicines that make you drowsy. ??? Do not use any tobacco products, such as cigarettes, chewing tobacco, and e-cigarettes, for as long as possible. ??? If you smoke, do not smoke without supervision. ??? Keep all follow-up visits as told by your health care provider. This is important. Contact a health care provider if: ??? You have more redness, swelling, or pain around your incision. ??? You have more fluid or blood coming from your incision. ??? Your incision feels warm to the touch. ??? You have pus or a bad smell coming from your incision. ??? You have a fever. ??? You feel light-headed or you faint. ??? You develop a rash. ??? You keep feeling nauseous or keep vomiting. ??? You have very bad pain, even after taking the medicines your health care provider has prescribed or recommended. ??? You have constipation. Get help right away if: ??? You are unable to pass urine. ??? You have trouble breathing. Summary ??? Have a responsible adult stay with you for at least 24 hours after the procedure. ??? Nausea is common after a procedure. Make sure you have little or no nausea before eating solid foods. Follow the diet recommended by your health care provider. ??? Ask your health care provider what activities are safe for you. This information is not intended to replace advice given to you by your health care provider. Make sure you discuss any questions you have with your health care provider. Document Released: 12/22/2016 Document Revised: 04/09/2018 Document Reviewed: 12/22/2016 [email or web address] Interactive Patient Education ?? 2019 [email or web address] phenazopyridine (fen AY matthew PIR i corin) AZO Urinary Pain Relief, Azo-Gesic, Azo-Standard, Baridium, Prodium, Pyridium, Re-Azo, Uricalm What is the most important information I should know about phenazopyridine? You should not use phenazopyridine if you have kidney disease. What is phenazopyridine? Phenazopyridine is a pain reliever that affects the lower part of your urinary tract (bladder and urethra). Phenazopyridine is used to treat urinary symptoms such as pain or burning, increased urination, and increased urge to urinate. These symptoms can be caused by infection, injury, surgery, catheter, or other conditions that irritate the bladder. Phenazopyridine will treat urinary symptoms, but this medication will not treat a urinary tract infection.. Take any antibiotic that your doctor prescribes to treat an infection. Phenazopyridine may also be used for purposes not listed in this medication guide. What should I discuss with my health care provider before taking phenazopyridine? You should not use phenazopyridine if you are allergic to it, or if you have kidney disease. To make sure phenazopyridine is safe for you, tell your doctor if you have: ? liver disease; ?? diabetes; or ?? a genetic enzyme deficiency called naievlb-5-idiqvfyxa dehydrogenase (G6PD) deficiency. FDA category B. Phenazopyridine is not expected to harm an unborn baby. Do not use this medicine without a doctor's advice if you are . It is not known whether phenazopyridine passes into breast milk or if it could harm a nursing baby. Do not use this medicine without a doctor's advice if you are breast-feeding a baby. How should I take phenazopyridine? Use exactly as directed on the label, or as prescribed by your doctor. Do not use in larger or smaller amounts or for longer than recommended. Take phenazopyridine after meals. Drink plenty of liquids while you are taking phenazopyridine. Phenazopyridine will most likely darken the color of your urine to an orange or red color. This is a normal effect and is not harmful. Darkened urine may also cause stains to your underwear that may be permanent. Phenazopyridine can also permanently stain soft contact lenses, and you should not wear them while taking this medicine. Do not use phenazopyridine for longer than 2 days unless your doctor has told you to. This medication can cause unusual results with urine tests. Tell any doctor who treats you that you are using phenazopyridine. Store at room temperature away from moisture and heat. What happens if I miss a dose? Take the missed dose as soon as you remember. Skip the missed dose if it is almost time for your next scheduled dose. Do not take extra medicine to make up the missed dose. What happens if I overdose? Seek emergency medical attention or call the Poison Help line at . What should I avoid while taking phenazopyridine? Do not use this medication while wearing soft contact lenses. Phenazopyridine can permanently discolor soft contact lenses. What are the possible side effects of phenazopyridine? Get emergency medical help if you have any of these signs of an allergic reaction: hives; difficult breathing; swelling of your face, lips, tongue, or throat. Stop using phenazopyridine and call your doctor at once if you have: ? little or no urinating; ?? swelling, rapid weight gain; ?? confusion, loss of appetite, pain in your side or lower back; ?? fever, pale or yellowed skin, stomach pain, nausea and vomiting; or ?? blue or purple appearance of your skin. Common side effects may include: ? headache; ?? dizziness; or ?? upset stomach. This is not a complete list of side effects and others may occur. Call your doctor for medical advice about side effects. You may report side effects to FDA at 2-993-PCQ-[phone]. What other drugs will affect phenazopyridine? Other drugs may interact with phenazopyridine, including prescription and ykxy-fnk-dpdvbge medicines, vitamins, and herbal products. Tell each of your health care providers about all medicines you use now and any medicine you start or stop using. Where can I get more information? Your pharmacist can provide more information about phenazopyridine. Remember, keep this and all other medicines out of the reach of children, never share your medicines with others, and use this medication only for the indication prescribed. Every effort has been made to ensure that the information provided by [employer] is accurate, up-to-date, and complete, but no guarantee is made to that effect. Drug information contained herein may be time sensitive. [employer] information has been compiled for use by healthcare practitioners and consumers in the [place] and therefore [employer] does not warrant that uses outside of the [place] are appropriate, unless specifically indicated otherwise. [employer]'s drug information does not endorse drugs, diagnose patients or recommend therapy. [employer] drug information is an informational resource designed to assist licensed healthcare practitioners in caring for their patients and/or to serve consumers viewing this service as a supplement to, and not a substitute for, the expertise, skill, knowledge and judgment of healthcare practitioners. The absence of a warning for a given drug or drug combination in no way should be construed to indicate that the drug or drug combination is safe, effective or appropriate for any given patient. [facility] does not assume any responsibility for any aspect of healthcare administered with the aid of information [facility] provides. The information contained herein is not intended to cover all possible uses, directions, precautions, warnings, drug interactions, allergic reactions, or adverse effects. If you have questions about the drugs you are taking, check with your doctor, nurse or pharmacist. Copyright 8176-3814 [facility]. Version: 3.05. Revision Date: 01/06/2014.nitrofurantoin (BELKIS troe fue RAN toin) Furadantin, Macrobid, Macrodantin What is the most important information I should know about nitrofurantoin? You should not take nitrofurantoin if you have severe kidney disease, urination problems, or a history of jaundice or liver problems caused by nitrofurantoin. Do not take nitrofurantoin if you are in the last 2 to 4 weeks of . What is nitrofurantoin? Nitrofurantoin is an antibiotic that fights bacteria in the body. Nitrofurantoin is used to treat urinary tract infections. Nitrofurantoin may also be used for purposes not listed in this medication guide. What should I discuss with my healthcare provider before taking nitrofurantoin? You should not take nitrofurantoin if you are allergic to it, or if you have: ? severe kidney disease; ?? a history of jaundice or liver problems caused by taking nitrofurantoin; ?? if you are urinating less than usual or not at all; or ?? if you are in the last 2 to 4 weeks of . Do not take nitrofurantoin if you are in the last 2 to 4 weeks of . To make sure nitrofurantoin is safe for you, tell your doctor if you have: ? kidney disease; ?? anemia; ?? diabetes; ?? an electrolyte imbalance or vitamin B deficiency; ?? tjjtmmd-1-hcmmbrcqm dehydrogenase (G6PD) deficiency; or ?? any type of debilitating disease. FDA category B. This medicine is not expected to be harmful to an unborn baby during early . Tell your doctor if you are or plan to become during treatment. Nitrofurantoin can pass into breast milk and may harm a nursing baby. You should not breast-feed while you are taking nitrofurantoin. Nitrofurantoin should not be given to a child younger than 1 month old. How should I take nitrofurantoin? Follow all directions on your prescription label. Do not take this medicine in larger or smaller amounts or for longer than recommended. Take nitrofurantoin with food. Shake the oral suspension (liquid) well just before you measure a dose. Measure liquid medicine with the dosing syringe provided, or with a special dose-measuring spoon or medicine cup. If you do not have a dose-measuring device, ask your pharmacist for one. You may mix your liquid dose with water, milk, or fruit juice to make it easier to swallow. Drink the entire mixture right away. Use this medicine for the full prescribed length of time. Your symptoms may improve before the infection is completely cleared. Skipping doses may also increase your risk of further infection that is resistant to antibiotics. Nitrofurantoin will not treat a viral infection such as the common cold or flu. Nitrofurantoin is usually given for up to 3 days after lab tests show that the infection has cleared. If you use this medicine long-term, you may need frequent medical tests at your doctor's office. Nitrofurantoin can cause unusual results with certain lab tests for glucose (sugar) in the urine. Tell any doctor who treats you that you are using nitrofurantoin. Store at room temperature away from moisture, heat, and light. What happens if I miss a dose? Take the missed dose as soon as you remember. Skip the missed dose if it is almost time for your next scheduled dose. Do not take extra medicine to make up the missed dose. What happens if I overdose? Seek emergency medical attention or call the Poison Help line at . What should I avoid while taking nitrofurantoin? Antibiotic medicines can cause diarrhea, which may be a sign of a new infection. If you have diarrhea that is watery or has blood in it, call your doctor. Do not use any medicine to stop the diarrhea unless your doctor has told you to. Avoid using antacids without your doctor's advice. Use only the type of antacid your doctor recommends. Some antacids can make it harder for your body to absorb nitrofurantoin. What are the possible side effects of nitrofurantoin? Get emergency medical help if you have any of these signs of an allergic reaction: hives; difficult breathing; swelling of your face, lips, tongue, or throat. Call your doctor at once if you have: ? diarrhea that is watery or bloody; ?? sudden chest pain or discomfort, wheezing, dry cough or hack; ?? new or worsening cough, trouble breathing; ?? fever, chills, body aches, tiredness, unexplained weight loss; ?? numbness, tingling, or pain in your hands or feet; ?? liver problems--nausea, upper stomach pain, itching, tired feeling, loss of appetite, dark urine, susan-colored stools, jaundice (yellowing of the skin or eyes); or ?? lupus-like syndrome--joint pain or swelling with fever, swollen glands, muscle aches, chest pain, vomiting, unusual thoughts or behavior, and patchy skin color. Serious side effects may be more likely in older adults and those who are ill or debilitated. Common side effects may include: ? headache, dizziness; ?? gas, upset stomach; ?? mild diarrhea; or ?? vaginal itching or discharge. This is not a complete list of side effects and others may occur. Call your doctor for medical advice about side effects. You may report side effects to FDA at [phone]-MHV-0983. What other drugs will affect nitrofurantoin? Other drugs may interact with nitrofurantoin, including prescription and dlht-gwt-odvoqin medicines, vitamins, and herbal products. Tell each of your health care providers about all medicines you use now and any medicine you start or stop using. Where can I get more information? Your pharmacist can provide more information about nitrofurantoin. Remember, keep this and all other medicines out of the reach of children, never share your medicines with others, and use this medication only for the indication prescribed. Every effort has been made to ensure that the information provided by [employer] is accurate, up-to-date, and complete, but no guarantee is made to that effect. Drug information contained herein may be time sensitive. [employer] information has been compiled for use by healthcare practitioners and consumers in the [place] and therefore [employer] does not warrant that uses outside of the [place] are appropriate, unless specifically indicated otherwise. [employer] drug information does not endorse drugs, diagnose patients or recommend therapy. [employer] drug information is an informational resource designed to assist licensed healthcare practitioners in caring for their patients and/or to serve consumers viewing this service as a supplement to, and not a substitute for, the expertise, skill, knowledge and judgment of healthcare practitioners. The absence of a warning for a given drug or drug combination in no way should be construed to indicate that the drug or drug combination is safe, effective or appropriate for any given patient. [employer] does not assume any responsibility for any aspect of healthcare administered with the aid of information [employer] provides. The information contained herein is not intended to cover all possible uses, directions, precautions, warnings, drug interactions, allergic reactions, or adverse effects. If you have questions about the drugs you are taking, check with your doctor, nurse or pharmacist. Copyright 8164-6075 [employer]. Version: 8.01. Revision Date: 11/23/2013.acetaminophen and hydrocodone (a SEET a MIN oh fen and cassi AMBROCIO done) Hycet, Lorcet, [place], Verdrocet, Vicodin, Xodol, Zamicet What is the most important information I should know about acetaminophen and hydrocodone? MISUSE OF OPIOID MEDICINE CAN CAUSE ADDICTION, OVERDOSE, OR . Keep the medication in a place where others cannot get to it. An overdose of acetaminophen can damage your liver or cause . Call your doctor at once if you have pain in your upper stomach, loss of appetite, dark urine, or jaundice (yellowing of your skin or eyes). Taking opioid medicine during may cause life-threatening withdrawal symptoms in the . Fatal side effects can occur if you use opioid medicine with alcohol, or with other drugs that cause drowsiness or slow your breathing. Stop taking this medicine and call your doctor right away if you have skin redness or a rash that spreads and causes blistering and peeling. What is acetaminophen and hydrocodone? Hydrocodone is an opioid pain medication, sometimes called a narcotic. Acetaminophen is a less potent pain reliever that increases the effects of hydrocodone. Acetaminophen and hydrocodone is a combination medicine used to relieve moderate to severe pain. Acetaminophen and hydrocodone may also be used for purposes not listed in this medication guide. What should I discuss with my healthcare provider before taking acetaminophen and hydrocodone? You should not use this medicine if you are allergic to acetaminophen or hydrocodone, or if you have: ? severe asthma or breathing problems; or ?? a blockage in your stomach or intestines. Tell your doctor if you have ever had: ? liver disease; ?? a drug or alcohol addiction; ?? kidney disease; ?? a head injury or seizures; ?? urination problems; or ?? problems with your thyroid, pancreas, or gallbladder. If you use opioid medicine while you are , your baby could become dependent on the drug. This can cause life-threatening withdrawal symptoms in the baby after it is born. Babies born dependent on opioids may need medical treatment for several weeks. Do not breast-feed. This medicine can pass into breast milk and cause drowsiness, breathing problems, or in a nursing baby. How should I take acetaminophen and hydrocodone? Follow all directions on your prescription label. Never take this medicine in larger amounts, or for longer than prescribed. An overdose can damage your liver or cause . Tell your doctor if the medicine seems to stop working as well in relieving your pain. Always check your bottle to make sure you have received the correct pills (same brand and type) of medicine prescribed by your doctor. Never share this medicine with another person, especially someone with a history of drug abuse or addiction. MISUSE CAN CAUSE ADDICTION, OVERDOSE, OR . Keep the medicine in a place where others cannot get to it. Selling or giving away acetaminophen and hydrocodone is against the law. Measure liquid medicine carefully. Use the dosing syringe provided, or use a medicine dose-measuring device (not a kitchen spoon). If you need surgery or medical tests, tell the doctor ahead of time that you are using this medicine. You should not stop using this medicine suddenly. Follow your doctor's instructions about tapering your dose. Store at room temperature away from moisture and heat. Keep track of your medicine. You should be aware if anyone is using it improperly or without a prescription. Do not keep leftover opioid medication. Just one dose can cause in someone using this medicine accidentally or improperly. Ask your pharmacist where to locate a drug take-back disposal program. If there is no take-back program, flush the unused medicine down the toilet. What happens if I miss a dose? Since this medicine is used for pain, you are not likely to miss a dose. Skip any missed dose if it is almost time for your next dose. Do not use two doses at one time. What happens if I overdose? Seek emergency medical attention or call the Poison Help line at . An overdose of acetaminophen and hydrocodone can be fatal. The first signs of an acetaminophen overdose include loss of appetite, nausea, vomiting, stomach pain, sweating, and confusion or weakness. Later symptoms may include pain in your upper stomach, dark urine, and yellowing of your skin or the whites of your eyes. Overdose can also cause severe muscle weakness, pinpoint pupils, very slow breathing, extreme drowsiness, or coma. What should I avoid while taking acetaminophen and hydrocodone? Avoid driving or operating machinery until you know how this medicine will affect you. Dizziness or drowsiness can cause falls, accidents, or severe injuries. Do not drink alcohol. Dangerous side effects or could occur. Ask a doctor or pharmacist before using any other medicine that may contain acetaminophen (sometimes abbreviated as APAP). Taking certain medications together can lead to a fatal overdose. What are the possible side effects of acetaminophen and hydrocodone? Get emergency medical help if you have signs of an allergic reaction: hives; difficulty breathing; swelling of your face, lips, tongue, or throat. Opioid medicine can slow or stop your breathing, and may occur. A person caring for you should seek emergency medical attention if you have slow breathing with long pauses, blue colored lips, or if you are hard to wake up. In rare cases, acetaminophen may cause a severe skin reaction that can be fatal. This could occur even if you have taken acetaminophen in the past and had no reaction. Stop taking this medicine and call your doctor right away if you have skin redness or a rash that spreads and causes blistering and peeling. Call your doctor at once if you have: ? noisy breathing, sighing, shallow breathing; ?? a light-headed feeling, like you might pass out; ?? liver problems--nausea, upper stomach pain, tiredness, loss of appetite, dark urine, susan-colored stools, jaundice (yellowing of the skin or eyes); or ?? low cortisol levels-- nausea, vomiting, loss of appetite, dizziness, worsening tiredness or weakness. Seek medical attention right away if you have symptoms of serotonin syndrome, such as: agitation, hallucinations, fever, sweating, shivering, fast heart rate, muscle stiffness, twitching, loss of coordination, nausea, vomiting, or diarrhea. Serious side effects may be more likely in older adults and those who are overweight, malnourished, or debilitated. Long-term use of opioid medication may affect fertility (ability to have children) in men or women. It is not known whether opioid effects on fertility are permanent. Common side effects include: ? dizziness, drowsiness, feeling tired; ?? nausea, vomiting, stomach pain; ?? constipation; or ?? headache. This is not a complete list of side effects and others may occur. Call your doctor for medical advice about side effects. You may report side effects to FDA at 6-134-IOP-0344. What other drugs will affect acetaminophen and hydrocodone? You may have breathing problems or withdrawal symptoms if you start or stop taking certain other medicines. Tell your doctor if you also use an antibiotic, antifungal medication, heart or blood pressure medication, seizure medication, or medicine to treat HIV or hepatitis C. Opioid medication can interact with many other drugs and cause dangerous side effects or . Be sure your doctor knows if you also use: ? cold or allergy medicines, bronchodilator asthma/COPD medication, or a diuretic ('water pill'); ?? medicines for motion sickness, irritable bowel syndrome, or overactive bladder; ?? other narcotic medications--opioid pain medicine or prescription cough medicine; ?? a sedative like Valium--diazepam, alprazolam, lorazepam, Xanax, Klonopin, Versed, and others; ?? drugs that make you sleepy or slow your breathing--a sleeping pill, muscle relaxer, medicine to treat mood disorders or mental illness; ?? drugs that affect serotonin levels in your body--a stimulant, or medicine for depression, Parkinson's disease, migraine headaches, serious infections, or nausea and vomiting. This list is not complete. Other drugs may affect acetaminophen and hydrocodone, including prescription and jajt-uzv-tawitby medicines, vitamins, and herbal products. Not all possible interactions are listed here. Where can I get more information? Your doctor or pharmacist can provide more information about acetaminophen and hydrocodone. Remember, keep this and all other medicines out of the reach of children, never share your medicines with others, and use this medication only for the indication prescribed. Every effort has been made to ensure that the information provided by [employer] is accurate, up-to-date, and complete, but no guarantee is made to that effect. Drug information contained herein may be time sensitive. [employer] information has been compiled for use by healthcare practitioners and consumers in the [place] and therefore [employer] does not warrant that uses outside of the [place] are appropriate, unless specifically indicated otherwise. [employer] drug information does not endorse drugs, diagnose patients or recommend therapy. [employer] drug information is an informational resource designed to assist licensed healthcare practitioners in caring for their patients and/or to serve consumers viewing this service as a supplement to, and not a substitute for, the expertise, skill, knowledge and judgment of healthcare practitioners. The absence of a warning for a given drug or drug combination in no way should be construed to indicate that the drug or drug combination is safe, effective or appropriate for any given patient. [employer] does not assume any responsibility for any aspect of healthcare administered with the aid of information [employer] provides. The information contained herein is not intended to cover all possible uses, directions, precautions, warnings, drug interactions, allergic reactions, or adverse effects. If you have questions about the drugs you are taking, check with your doctor, nurse or pharmacist. Copyright 9003-8522 [employer]. Version: 15.. Revision Date: 07/20/2018.docusate (oral/rectal) (DOK ue sate) Colace, Diocto, Dioeze, Doc-Q-Lace, Docu, Docu Soft, Doculase, Docuprene, Docusil, Docusoft S, DocuSol, DOK, DSS, Dulcolax Stool Softener, Enemeez Mini, Tre-Tin, Octycine-250, Pedia-Lax Stool Softener, Brown Stool Softener, Promolaxin, Silace, Surfak Stool Softener, Cal-Q-Lax, Vacuant What is the most important information I should know about docusate? You should not use docusate if you have a blockage in your intestines. Do not use docusate while you are sick with nausea, vomiting, or severe stomach pain. You should not take mineral oil while using docusate. What is docusate? Docusate is a stool softener. It makes bowel movements softer and easier to pass. Docusate is used to treat or prevent constipation, and to reduce pain or rectal damage caused by hard stools or by straining during bowel movements. Docusate may also be used for purposes not listed in this medication guide. What should I discuss with my healthcare provider before using docusate? You should not use docusate if you are allergic to it, or if you have: ? nausea, vomiting, or severe stomach pain; ?? a blockage in your intestines; or ?? chronic stomach pain that has not been checked by a doctor. You should not take mineral oil while using docusate. Ask a doctor or pharmacist if it is safe for you to take docusate: ? if you are on a low-salt diet; or ?? if you have recently had a sudden change in your bowel habits lasting for longer than 2 weeks. FDA category C. It is not known whether docusate will harm an unborn baby. Do not use this medicine without a doctor's advice if you are . It is not known whether docusate passes into breast milk or if it could harm a nursing baby. Do not use this medicine without a doctor's advice if you are breast-feeding a baby. Do not give this medicine to a child younger than 6 years old without the advice of a doctor. How should I use docusate? Use exactly as directed on the label, or as prescribed by your doctor. Do not use in larger or smaller amounts or for longer than recommended. Take this medicine with a full glass of water. Drink plenty of liquids while you are taking docusate. Do not crush, chew, break, or open a docusate capsule or tablet. Swallow it whole. Measure liquid medicine with the dosing syringe provided, or with a special dose-measuring spoon or medicine cup. If you do not have a dose-measuring device, ask your pharmacist for one. Mix the liquid with 6 to 8 ounces of milk, fruit juice, or infant formula and drink the mixture right away. After taking docusate by mouth (tablets, capsules, liquid), you should have a bowel movement within 12 to 72 hours. Do not take docusate rectal enema by mouth. It is for use only in your rectum. Wash your hands before and after using docusate enema. Try to empty your bowel and bladder just before using the enema. Remove the cap from the enema applicator tip. Lie down on your left side with your knees bent, and gently insert the tip of the enema applicator into the rectum. Squeeze the tube to empty the entire contents into the rectum. Throw away the tube, even if there is still some medicine left in it. For best results, hold in the enema for as long as possible, or until you have a bowel movement. The rectal enema should produce a bowel movement within 2 to 15 minutes. Do not use docusate for longer than 7 days unless your doctor has told you to. Call your doctor if your symptoms do not improve, or if you have not had a bowel movement within 1 to 3 days. Overuse of a stool softener can lead to serious medical problems. Store at room temperature away from moisture and heat. What happens if I miss a dose? Since docusate is used when needed, you may not be on a dosing schedule. If you are on a schedule, use the missed dose as soon as you remember. Skip the missed dose if it is almost time for your next scheduled dose. Do not use extra medicine to make up the missed dose. What happens if I overdose? Seek emergency medical attention or call the Poison Help line at . Overdose symptoms may include nausea, vomiting or stomach pain. What should I avoid while using docusate? Avoid using laxatives or other stool softeners unless your doctor has told you to. What are the possible side effects of docusate? Get emergency medical help if you have any of these signs of an allergic reaction: hives; difficult breathing; swelling of your face, lips, tongue, or throat. Stop using docusate and call your doctor at once if you have: ? pounding heartbeats or fluttering in your chest; ?? a light-headed feeling, like you might pass out; ?? rectal bleeding or irritation; ?? numbness or a rash around your rectum; ?? vomiting, severe diarrhea or stomach cramps; or ?? continued constipation, or no bowel movement. Common side effects may include: ? dizziness, weakness; ?? gas, bloating, mild diarrhea; ?? rectal irritation; or ?? sweating. This is not a complete list of side effects and others may occur. Call your doctor for medical advice about side effects. You may report side effects to FDA at 6-201-TPV-1516. What other drugs will affect docusate? Other drugs may interact with docusate, including prescription and qwgk-eyl-iefvsea medicines, vitamins, and herbal products. Tell each of your health care providers about all medicines you use now and any medicine you start or stop using. Where can I get more information? Your pharmacist can provide more information about docusate. Remember, keep this and all other medicines out of the reach of children, never share your medicines with others, and use this medication only for the indication prescribed. Every effort has been made to ensure that the information provided by [employer]. ('[employer]') is accurate, up-to-date, and complete, but no guarantee is made to that effect. Drug information contained herein may be time sensitive. [employer] information has been compiled for use by healthcare practitioners and consumers in the [place] and therefore [employer] does not warrant that uses outside of the [place] are appropriate, unless specifically indicated otherwise. [employer]'s drug information does not endorse drugs, diagnose patients or recommend therapy. [employer] drug information is an informational resource designed to assist licensed healthcare practitioners in caring for their patients and/or to serve consumers viewing this service as a supplement to, and not a substitute for, the expertise, skill, knowledge and judgment of healthcare practitioners. The absence of a warning for a given drug or drug combination in no way should be construed to indicate that the drug or drug combination is safe, effective or appropriate for any given patient. [employer] does not assume any responsibility for any aspect of healthcare administered with the aid of information [employer] provides. The information contained herein is not intended to cover all possible uses, directions, precautions, warnings, drug interactions, allergic reactions, or adverse effects. If you have questions about the drugs you are taking, check with your doctor, nurse or pharmacist. Copyright 9838-5294 [employer]. Version: 3.03. Revision Date: 10/27/2013. Emergency Awareness and Preventative Care STROKE is an EMERGENCY Every Minute Counts Act FAST and Check for these signs: FACE Does the face look uneven? ARM Does one arm drift down? SPEECH Does their speech sound strange? TIME Call at any sign of stroke Stroke Risk Factors Atrial Fibrillation (irregular heartbeat) Diabetes Family history of stroke Heart Disease Heavy alcohol use High Blood Pressure High Cholesterol Physical inactivity and obesity Smoking Cigarette Smoking The facts are clear, cigarette smoking will shorten your life. Smoking can cause many illnesses along the way. As a healthcare provider, we recommend that you stop smoking. Assistance with quitting is available by contacting 4-027-LMEENOW. This is a free resource providing counseling, support, and referral. Or you may contact your personal physician. National Suicide Prevention Lifeline: The National Suicide Prevention Lifeline is a national network of local crisis centers that provides free and confidential emotional support to people in suicidal crisis or emotional distress 24 hours a day, 7 days a week. Don't Wait! Stop a Heart Attack Before it Starts What is a heart attack? A heart attack is damage or to a part of the heart from severely decreased or lack of blood flow to the heart. Over time, arteries can become narrow from the buildup of fat and cholesterol, which is called plaque. The plaque can rupture causing a blood clot to form. When the blood clot forms, the artery can become severely narrowed or completely blocked, causing a heart attack. Heart attack is the leading cause of in the [place]. 85% of muscle damage occurs within the first 2 hours. Delay in the recognition of heart attack symptoms increases the chances of . Know the early symptoms of a heart attack: Nausea Feeling of fullness in chest Jaw Pain Pain that travels down one or both arms Fatigue/being tired Anxiety Back Pain Chest pressure, squeezing, or discomfort Shortness of breath Sweating, or a cold sweat Feeling of impending doom There are unusual signs of a heart attack, too! Women, the elderly, and diabetics may present with atypical symptoms: Fainting/dizziness Weakness Confusion Risk Factors for a Heart Attack Some heart disease risk factors, such as age and family history, cannot be changed. Others, like smoking and lack of exercise, can be changed. Smoking High Cholesterol High Blood Pressure Family History Obesity Age Gender (Males are at higher risk) Lack of Exercise Diabetes Diet Stress Excessive Alcohol Intake If you or someone you know is experiencing the signs and symptoms of a heart attack, DON???T DELAY. Call immediately and seek help. If someone collapses, perform CPR! Do not attempt to drive if you are having symptoms of heart attack. Hands-Only CPR Why Hands-Only CPR? Hands-Only CPR has been shown to be as effective as conventional CPR for cardiac arrests that occur outside of a hospital. Survival depends on immediately receiving CPR from someone nearby. How do you perform Hands-Only CPR? There are two easy steps: Call if you see a teen or adult collapse Push hard and fast in the center of the chest at a beat of 100 beats per minute. Save a life! 4 WAYS TO GET AHEAD OF SEPSIS SEPSIS is a MEDICAL EMERGENCY. Time matters! Infections put you and your family at risk for a life-threatening condition called sepsis. Sepsis is the body's extreme response to an infection. It is life-threatening, and without timely treatment, sepsis can rapidly lead to tissue damage, organ failure, and . Sepsis happens when an infection you already have-in your skin, lungs, urinary tract or somewhere else-triggers a chain reaction throughout your body. 1 PREVENT INFECTIONS Take good care of chronic conditions. Talk to your doctor about getting the recommended vaccines. 2 PRACTICE GOOD HYGIENE Wash your hands frequently. Keep cuts or open sores clean and covered until they are healed. 3 KNOW THE SYMPTOMS Confusion or disorientation Shortness of breath High heart rate Fever, shivering, or feeling very cold Extreme pain or discomfort Clammy or sweaty skin 4 ACT FAST Get medical care IMMEDIATELY if you suspect sepsis or if you have an infection that is not getting better or is getting worse. To learn more about sepsis and how to prevent infections, visit www.cdc.gov/sepsis. Patient Portal Reminder: Be sure to sign up for the [facility] patient portal, which gives you 07/04 access to your medical information ??? including these discharge instructions ??? using your computer, smartphone, or tablet. Just go to [employer] to get started. Questions? Call . Test Results Laboratory or Other Results This Visit (last charted value for your 02/09/2019 visit) No Laboratory or Other Results This Visit Patient Name:MINO HSU I have received this information and was given the opportunity to ask questions. Patient/Count Team Clerk Name: Patient/Count Team Clerk Signature: Relationship to Patient: Clinician/Hospital Count Team Clerk Signature: Date: documented in this encounter Plan of Treatment Not on file documented as of this encounter Visit Diagnoses Not on filedocumented in this encounter
--- OUTSIDE RECORDS SUMMARY | 2025-04-07 10:52 | XMS_ITS | Encounter Summary ---
Author Organization [facility] [place] [address] Care Team Providers Care Size Worker Name Role Phone Unavailable Primary Care Provider Unavailabl e Encounter Details Date Type Department Care Team (Late st Contact Info) Description 08/08/2021 Orders Only [facility] [address] [place] [address] Edis Garza MD [address] [place], [place] [address] Social History Tobacco Use Types Packs/Day Years Used Date Smoking Tobacco: Every Day Cigarettes Smokeless Tobacco: Never Sex and Gender Information Value Date Recorded Sex Assigned at Not on file Legal Sex Male 1:03 AM EDT Gender Identity Not on file Sexual Orientation Not on file COVID-19 Exposure Response Date Recorded In the last month, have you been in contact with someone who was confirmed or suspected to have Coronavirus / COVID-19? No / Unsure 08/06/2021 4:40 PM EST documented as of this encounter Plan of Treatment Not on file documented as of this encounter Procedures Procedure Name Priority Date/Time Associated Diagnosis Comments EP LAB RECORDINGS Routine 08/08/2021 11:22 AM EST documented in this encounter Results * EP LAB RECORDINGS (08/08/2021 11:22 AM EST) 08/08/2021 11:2 2 AM EST us Edis Garza MD CARDIAC CATH ORDERABLES Final Result [facility] [address] [id number] documented in this encounter Visit Diagnoses Not on filedocumented in this encounter Additional Health Concerns Assessment Noted Time A fall risk assessment has been complete d for the patient 08/03/2021 2:11 PM EST documented as of this encounter
--- OUTSIDE RECORDS SUMMARY | 2025-04-07 10:52 | XMS_ITS | Encounter Summary ---
Author Organization [employer] ([place], [place], [place], [place]) Address [address] [place] [address] Care Team Providers Care Photoengraving Apprentice Name Role Phone Unavailable Primary Care Provider Unavailabl e Encounter Details Date Type Department Care Team (Late st Contact Info) Description 02/09/2019 Transcribed Document [facility] Family Medicine [facility] [place] [address] ProviderSoham MD [facility] [place] [address] Social History Tobacco Use Types [...] Conversion Note - Soham ProviderMD - 02/09/2019 9:35 AM CDT DATE OF PROCEDURE:02/09/2019 OPERATIVE REPORT PREOPERATIVE DIAGNOSIS(ES): Benign prostatic hypertrophy with lower urinary tract symptoms. POSTOPERATIVE DIAGNOSIS(ES): Benign prostatic hypertrophy with lower urinary tract symptoms. PROCEDURE: GreenLight photovaporization of the prostate. SURGEON: Bairon Galvez MD RESIDENT: Filippo Parsons MD (R), PGY-4 ANESTHESIA: General. SPECIMENS: None. BLOOD LOSS: 50 mL. INTRAVENOUS FLUIDS: See Anesthesia record. DRAINS: A 20-Ecuadorean coude catheter with 30 mL of sterile water in the balloon. OPERATIVE INDICATIONS: Mr. Hsu is a 73-year-old gentleman with a history of lower urinary tract symptoms, which have been refractory to five 9-ckgjy-hpsaxcdri inhibitors, in addition the patient has been unable to tolerate alpha honey secondary to dizziness. On discussion of his options, he has opted for surgical management for which he presents today. OPERATIVE FINDINGS: 1. Approximately 40 g prostate with trilobar hypertrophy. 2. Patient had a relatively short prostatic urethral channel, which was opened very well with the GreenLight laser. 3. Excellent hemostasis at the end the case. 4. Successful placement of a 20-Ecuadorean coude catheter with 30 mL of sterile water in the balloon and very light pink urine at the end of the case. OPERATIVE DESCRIPTION: The patient was admitted to the preoperative area where identity was confirmed as the [place]. After ensuring consent, after administration of preoperative antibiotics, patient was taken to the operative suite, placed on the operative table in supine position. After the induction of general anesthesia, patient was placed in lithotomy position, prepped and draped in usual sterile fashion. After time-out ensuring the correct patient and correct procedure, the procedure was begun. The patient was noted to have a slightly tight meatus precluding the introduction of the continuous-flow resectoscope sheath. We therefore dilated the patient from 24-Ecuadorean to 28-Ecuadorean utilizing male urethral sounds due to the patient having undergone a previous inflatable penile prosthesis placement. We were very elena and we were very gentle in our dilation and this was noted to be atraumatic as there was no urethral bleeding during this. We then successfully introduced the 28-Ecuadorean continuous-flow resectoscope sheath again with the inner obturator. Again, we were very gentle. There was no evidence of trauma as there was no bleeding during placement. We then inserted our 30 degree lens with the laser bridge. After inspecting the patient's prostatic urethral channel, which was noted to have trilobar hypertrophy, it was noted to be about 40 g with a relatively short channel. We performed complete cystoscopy which was negative for tumors, masses, stones or foreign bodies. His bilateral ureteral orifices were noted to be in the normal orthotopic position. We then inserted our GreenLight laser fiber through our scope on settings of 80 richard. We began working on the bladder neck. We incised the channels at the 5 and 7 o'clock positions and then utilized these channels to take down the median lobe from a lateral perspective. Once this was taken down, we then increased our energy to 120 and began working on the lateral lobes. We first took down the patient's left lateral lobe with good hemostasis down just proximal to the sphincter. We at no point went distal to the verumontanum. We then turned our attention to the right lateral lobe. Once this was taken down, we then took down the apical tissue. There was good hemostasis utilizing the laser. Once we were satisfied, we then withdrew our scope inspecting the patient's entirety of his urethra. There was no evidence of perforation or injury and no evidence of extrusion of the IPP. We then utilized a Uro-Jet for local anesthesia and inserted a 20-Ecuadorean two-way coude catheter with 30 mL sterile water in the balloon. The patient was noted to have a very light pink urine at the end the case. We then awoke the patient from general anesthesia, transferred him to a stretcher and brought him to PACU in stable condition. Dr. Galvez was present and scrubbed for the entire procedure. COMPLICATIONS: None immediate. DISPOSITION: The patient will further recover from the general anesthesia in PACU, he will be discharged once he meets PACU criteria. We will have him followup on for removal of his catheter. Dictated By: Filippo Parsons MD (R) For Frank Rinaldi M.D. Dict: 02/09/2019 09:35:43 Trans: 02/09/2019 12:16:31 CC1: Bairon Galvez M.D. documented in this encounter Plan of Treatment Not on file documented as of this encounter Visit Diagnoses Not on filedocumented in this encounter
--- OUTSIDE RECORDS SUMMARY | 2025-04-07 10:52 | XMS_ITS | Encounter Summary ---
Author Organization [employer] ([place], [place], [place], [place]) Address [address] [place] [address] Care Team Providers Care Hotel [employer]el Room Service Supervisor Name Role Phone Unavailable Primary Care Provider Unavailabl e Encounter Details Date Type Department Care Team (Late st Contact Info) Description 02/09/2019 Transcribed Document [facility] Medicine [address] [place] [address] ProviderSoham MD [address] [place] [address] Social History Tobacco Use Types Packs/Day Years Used Date Smoking Tobacco: Never Assessed Sex and Gender Information Value Date Recorded Sex Assigned at Male 03/14/2022 12:41 PM CDT Legal Sex Male 6:35 PM CDT Gender Identity Male 03/14/2022 12:41 PM CDT Sexual Orientation Not on file documented as of this encounter Miscellaneous Notes * Cerner Conversion Note - Soham May MD - 02/09/2019 12:08 PM CDT Patient Education Materials Follows: Outpatient Surgery, Adult, Care After These instructions [...] and water are not available, use hand systems engineering manager. ? Change your dressing as told by [...] or a bad smell. Medicines ??? Take iksw-jeg-wyuicfu and prescription medicines only as told by [...] 12/22/2016 Document Revised: 04/09/2018 Document Reviewed: 12/22/2016 [employer] Patient Education ? 2019 [employer] Urology Indwelling Urinary Catheter Care, Adult An indwelling [...] on each side. Do this in a fhubj-va-kftl direction. ? If you are male: ? [...] or your leg bag) when it is ??? full, or at least 2?3 times a day. Do not clean your [...] and water are not available, use hand systems engineering manager. ??? Always make sure there are no [...] 09/01/2006 Document Revised: 04/17/2018 Document Reviewed: 04/17/2018 [employer] Patient Education ? 2019 [employer] Prostate Laser Surgery, Care After This [...] of urination. This feeling usually passes within 3?5 days. Follow these instructions at home: Activity [...] is safe. ??? Avoid sexual activity for 4?6 weeks or as told by your health [...] clear or pale yellow. Medicines ??? Take ozgo-bon-ouaadzx and prescription medicines, including stool softeners, only [...] 09/01/2006 Document Revised: 04/18/2017 Document Reviewed: 04/18/2017 [employer] Patient Education ? 2019 [employer] documented in this encounter Plan of Treatment Not on file documented as of this encounter Visit Diagnoses Not on filedocumented in this encounter
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
--- OUTSIDE RECORDS SUMMARY | 2025-04-07 10:52 | XMS_ITS | Encounter Summary ---
Author Organization [facility] ([place], [place], [place], [place]) Address [address] [place] [address] Care Team Providers Care Roving Hauler Name Role Phone Unavailable Primary Care Provider Unavailabl e Encounter Details Date Type Department Care Team (Late st Contact Info) Description 01/27/2019 Transcribed Document [facility] Family Medicine [address] [place] [address] ProviderSoham MD [address] [place] [address] Social History Tobacco Use Types Packs/Day Years Used Date Smoking Tobacco: Never Assessed Sex and Gender Information Value Date Recorded Sex Assigned at Male 03/14/2022 12:41 PM CDT Legal Sex Male 6:35 PM CDT Gender Identity Male 03/14/2022 12:41 PM CDT Sexual Orientation Not on file documented as of this encounter Miscellaneous Notes * Cerner Conversion Note - Historical ProviderMD - 01/27/2019 5:18 PM CDT PAT Adult Entered On: 01/27/2019 17:21 EDT Performed On: 01/27/2019 17:18 EDT by Anali Hannah RN Height and Weight, Clinical Dosing Height Source : Measured Height Entry Format : Horatio Height, Feet : 0 ft(Converted to: 0 cm, 0 Inch) Height, Inches : 72 Inch(Converted to: 6 ft 0 Inch, 182.88 cm) Clinical Height : 182.88 cm Weight Source : Standing scale Weight Entry Format : Horatio Clinical Dosing Weight : 90.91 kg Weight, Pounds : 200 lb Body Surface Area (BSA) : 2.13 m2 Body Mass Index : 27.2 kg/m2 (HI) [place] Body Weight : 77 kg Vielka Dillon RN - 02/09/2019 7:18 EDT Health Histories Smoking Status : 10 or more cigarettes (1/2 pack or more)/day in last 30 days Smokeless Tobacco Status : Never Desires Tobacco Cessation Medication : No Reason for No Tobacco Cessation Medication : Refuses FDA approved medications Anali Hannah RN - 01/27/2019 17:18 EDT Social History (As Of: 02/09/2019 07:19:24 EDT) Tobacco: 10 or more cigarettes (1/2 pack or more)/day in last 30 days Smoking Status. Never Smokeless Tobacco Status. Years of Use: 50. Packs/Tins Daily: 1. (Last Updated: 01/27/2019 17:17:02 EDT by Anali Hannah, ERIK) Alcohol: Alcohol Use History No. (Last Updated: 01/27/2019 17:17:53 EDT by Anali Hannah RN) Substance Abuse: Drug Use Hx: No. Use in Last 12 Months: No. (Last Updated: 01/27/2019 17:17:57 EDT by Anali Hannah RN) Infectious Disease History Infectious Disease History : Chicken pox/Shingles, Influenza, Measles, Mumps Fever/Chills Last 48 Hours : No Travel To Regions with Travel Advisories : No Travel Outside [place] Within Last 30 Days : No Contact With Traveler to Advisory Region : No Tuberculosis Symptoms : None Anali Hannah RN - 01/27/2019 17:18 EDT Anesthesia/Transfusion History Family History of Anesthesia Reaction : No prior transfusion(s) Transfusion History : Prior anesthesia without reaction Family History of Anesthesia Reaction : None Anali Hannah RN - 01/27/2019 17:18 EDT Advance Directive Patient has Advance Directive *Q : Yes, Advance Directive with the patient Request Family/Rep to Provide Copy of AD : Yes Advance Directive Type : Living will, Medical durable power of attorney lawyer (proxy) Copy Advance Directive Verified/on Chart : No Anali Hannah RN - 01/27/2019 17:18 EDT Psychosocial History Do You Have a History of the Following? : Depression Currently in Unsafe Situation : No Tried to Harm Yourself in the Past? : No Thoughts of Harming/Killing Yourself : No Anali Hannah RN - 01/27/2019 17:18 EDT General Info Emergency Contact #1 : Torres Emergency Contact #1 Emergency Contact #1 Relationship : step son Vielka Dillon RN - 02/09/2019 7:18 EDT Emergency Contact #2 : leva Emergency Contact #2 Phone Number : elva Emergency Contact #2 Relationship : elva Vielka Dillon RN - 02/05/2019 12:50 EDT Support Person/Patient Field Representative/Health Education : Yes Support Person/Pt Rep Name : Jesus Hammond- brother [phone] Want Family/Rep/Phys Notified of Admit : No Information Obtained From : Patient Primary Language : Tuvaluan Preferred Communication Mode : Verbal Communication Barrier : None Anali Hannah RN - 01/27/2019 17:18 EDT Arjun Scale Arjun Sensory Perception : No impairment Arjun Moisture : Rarely moist Arjun Activity : Walks frequently Arjun Mobility : No limitation Arjun Nutrition : Adequate Arjun Friction and Shear : No apparent problem Arjun Score : 22 Vielka Dillon RN - 02/05/2019 12:50 EDT Sleep Apnea Risk Assmt BMI Greater Than 35 kg/m2 : No Neck Circumference Greater Than 40 cm : No STOP-BANG Sleep Apnea Risk Level Score : 3 Vielka Dillon RN - 02/09/2019 7:18 EDT Hx of Obstructive Sleep Apnea Diagnosis : No Snore Loudly : Yes Tired, Fatigued, or Sleepy During Day : No Observed Stopping Breathing During Sleep : No Have/Are Being Treated for Hypertension : No Age over 50 Years Old : Yes Gender Male : Yes Anali Hannah RN - 01/27/2019 17:18 EDT documented in this encounter Plan of Treatment Not on file documented as of this encounter Visit Diagnoses Not on filedocumented in this encounter
--- OUTSIDE RECORDS SUMMARY | 2025-04-07 10:52 | XMS_ITS | Encounter Summary ---
Author Organization [employer] ([place], [place], [place], [place]) Address [address] [place] [address] Care Team Providers Care Residential Recycle Driver Name Role Phone Unavailable Primary Care Provider Unavailabl e Encounter Details Date Type Department Care Team (Late st Contact Info) Description 02/09/2019 Transcribed Document [facility] Family Medicine [facility] [place] [address] ProviderSoham MD [facility] [place] [address] Social History Tobacco Use Types [...] Conversion Note - Soham ProviderMD - 02/09/2019 8:33 AM CDT [facility] PACU Summary Primary Physician: EZ ODOM MD-URO Finalized Date/Time: 02/09/19 10:42:36 Pt. Name: MINO HSU /Sex: 1945 Male Med Rec #: [id number] Physician: EZ ODOM MD-URO Financial #: [id number] Pt. Type: O Room/Bed: /4 Admit/Disch: 02/09/19 06:12:00 - Institution: [facility] PACU I Case Times Entry 1 In PACU I 02/09/19 09:28:00 Ready for PACU 02/09/19 10:32:00 Discharge Discharge from PACU 02/09/19 10:32:00 I Last Modified By: SONDRAVERÓNICA RN 02/09/19 10:42:24 [facility] PACU I Case Times Audit 02/09/19 10:42:24 Hotel Houseman: [id number] Modifier: [id number] <+> 1 Ready for PACU Discharge <+> 1 Discharge from PACU I Finalized By: VERÓNICA AMARO RN Document Signatures Signed By: VERÓNICA AMARO RN 02/09/19 10:42 Electronically signed by Bhupinder Cordova Conversion Assistant Professor Of Education Cerner at 12/30/2022 9:52 AM CDT documented in this encounter Plan of Treatment Not on file documented as of this encounter Visit Diagnoses Not on filedocumented in this encounter
--- OUTSIDE RECORDS SUMMARY | 2025-04-07 10:52 | XMS_ITS | Clinical Summary ---
Author Organization [facility] Address [address] [place] [address] Care Team Providers Care Explosives Detonator Name Role Phone Kojo Vu Primary Care Provider [phone] Skinny Massey MD Unavailable [phone] Allergies Active Allergy Reactions Criticality Noted Date Comments Sulfa (Sulfonamide Antibiotics) 09/2018 Medications XARELTO 20 mg Tablet 05/08/2018 Active amiodarone (PACERONE) 200 mg tablet Take 200 mg by mouth. 11/11/2017 Active lisinopril (PRINIVIL, ZESTRIL) 10 mg tablet 08/11/2018 Active metoprolol succinate (TOPROL) 25 mg XL tablet Take by mouth daily. 3 08/23/2018 Active omeprazole (PRILOSEC) 20 mg capsule 08/24/2018 Active DULoxetine (CYMBALTA) 60 mg Capsule, Delayed Release(E.C.) Take 60 mg by mouth. 06/24/2016 Active simvastatin (ZOCOR) 20 mg tablet Take 1 Tab by mouth daily. 0 05/26/2019 Active Oxycodone-Acetam inophen (PERCOCET) 7.5-325 mg per tablet Take 1 Tab by mouth. 05/19/2019 Active aspirin 81 mg Tablet, Delayed Release (E.C.) Take 81 mg by mouth daily. Active Active Problems Problem Noted Date Diagnosed Date Increased frequency of urination 04/19/2019 Overview (04/19/2019): Added automatically from request for surgery [id number] Social History Tobacco Use Types Packs/Day Years Used Date Smoking Tobacco: Every Day Smokeless Tobacco: Never Sex and Gender Information Value Date Recorded Sex Assigned at Not on file Legal Sex Male 6:06 PM EST Gender Identity Not on file Sexual Orientation Not on file Last Filed Vital Signs Vital Sign Reading Time Taken Comments Blood Pressure 142/71 05/07/2019 2:21 PM EDT Pulse 65 05/07/2019 2:21 PM EDT Temperature 36.7 C (98.1 F) 05/07/2019 2:21 PM EDT Respiratory Rate 16 07/15/2019 2:19 PM EDT Oxygen Saturation 97% 05/07/2019 2:21 PM EDT Inhaled Oxygen Concentration - - Weight 90.7 kg (200 lb) 07/15/2019 2:19 PM EDT Height 182.9 cm (6') 07/15/2019 2:19 PM EDT Body Mass Index 27.12 07/15/2019 2:19 PM EDT Plan of Treatment Health Maintenance Due Date Last Done Comments Tobacco Cessation Counseling 1957 Lipid Screening 1964 Tetanus Vaccination (Every 10 Years) 1964 Pneumococcal Vaccine: 50+ Years (1 of 2 - PCV) 966 Hepatitis C Virus (HCV) Screening 1967 Zoster-RZV(Shingrix) (1 of 2) 1996 Fall Risk Assessment 2011 RSV Vaccines (1 - 1-dose 75+ series) 2021 COVID-19 Vaccine (1 - 2023- season) 2024 Advance Care Planning 09/15/2024 Depression Screening 09/15/2024 Influenza Vaccination (#1) 2025 Insurance MEDICARE ANTHEM MEDICARE PART A [facility] [address] [place] [id number] ANTHEM MEDICARE ANTHEM Care Teams Explosives Detonator Relationship Specialty Start Date End Date Kojo Vu [address] [place] [address] PCP - General 09/18/18 Skinny Massey MD [address] [place] [id number] Urology 09/22/22
--- OUTSIDE RECORDS SUMMARY | 2025-04-07 10:52 | XMS_ITS | Encounter Summary ---
Author Organization [employer] ([place], [place], [place], [place]) Address [address] [place] [id number] Care Team Providers Care Program Aide Name Role Phone Unavailable Primary Care Provider Unavailabl e Encounter Details Date Type Department Care Team (Late st Contact Info) Description 02/09/2019 Transcribed Document [facility] [facility] [place] [address] ProviderSoham MD [address] [place] [address] Social History Tobacco Use Types [...] Conversion Note - Soham ProviderMD - 02/09/2019 6:35 AM CDT Patient: MINO HSU Age: 73 years Sex: Male : 1945 Associated Diagnoses: None Author: SACHIN BERNAL, PATIENT TRANSPORT OFFICER Chief Complaint BPH Review of Systems ROS reviewed as documented in chart no change since last seen by surgeon Health Status Allergies: Allergic Reactions (Selected) Severity Not Documented Sulfamethoxazole- Nausea., Allergies (1) Active Reaction sulfamethoxazole nausea Current medications: (Selected) Inpatient Medications Ordered Lactated Ringers Injection intravenous solution 1,000 mL: 20 mL/Hr, IntraVENous Rocephin + Sodium Chloride 0.9% intravenous solution 50 mL: 2,000 mg, 100 mL/Hr, IV Piggyback, 1-Time lidocaine 1% injectable solution: 0.5 mL, IntraDermal, 1-Time, PRN: Other (See Comment) sodium chloride 0.9% injectable solution: 10 mL, IV Push, See Comment, PRN: Other (See Comment) Documented Medications Documented DULoxetine: 60 mg, Oral, Daily, 0 Refill(s) Fish Oil: 1,000 mg, Oral, Daily, 0 Refill(s) Xarelto (indication required): 20 mg, Oral, Daily, 0 Refill(s) alfuzosin: 10 mg, Oral, Daily, 0 Refill(s) amiodarone: 200 mg, Oral, BID, 0 Refill(s) aspirin 81 mg oral delayed release tablet: 1 Tab, Oral, Daily, 30 Tab, 0 Refill(s) diazePAM: 5 mg, Oral, At Bedtime, 0 Refill(s) lisinopril: 10 mg, Oral, Daily, 0 Refill(s) metoprolol tartrate: 25 mg, Oral, Daily, 0 Refill(s) omeprazole: 20 mg, Oral, Daily, 0 Refill(s) oxyCODONE: 7.5 mg, Oral, Q6H, PRN: Pain (Mild 1-3), 0 Refill(s) simvastatin: 20 mg, Oral, Daily, 0 Refill(s), Home Medications (12) Active alfuzosin 10 mg, Oral, Daily amiodarone 200 mg, Oral, BID aspirin 81 mg oral delayed release tablet 81 mg = 1 Tab, Oral, Daily diazePAM 5 mg, Oral, At Bedtime DULoxetine 60 mg, Oral, Daily Fish Oil 1,000 mg, Oral, Daily lisinopril 10 mg, Oral, Daily metoprolol tartrate 25 mg, Oral, Daily omeprazole 20 mg, Oral, Daily oxyCODONE 7.5 mg, PRN, Oral, Q6H simvastatin 20 mg, Oral, Daily Xarelto (indication required) 20 mg, Oral, Daily , Medications (4) Active Scheduled: (1) cefTRIAXone + NaCl 0.9% 50 mL 2,000 mg, IV Piggyback, 1-Time Continuous: (1) lactated ringers 1,000 mL 1,000 mL, IntraVENous, 20 mL/Hr PRN: (2) #NaCl 0.9% *FLUSH* inj 10 mL 10 mL, IV Push, See Comment lidocaine 1% *PF* inj 2 mL 0.5 mL, IntraDermal, 1-Time Problem list: All Problems Stented coronary artery x3 / SNOMED CT 9154309939 / Confirmed Pneumonia / SNOMED CT 529881806 / Confirmed Hyperlipidemia / SNOMED CT 44522795 / Confirmed High blood pressure / SNOMED CT 47316247 / Confirmed Hemorrhoids / SNOMED CT 908165715 / Confirmed Hard of hearing, left ear / SNOMED CT 497427326 / Confirmed Disorder of prostate / SNOMED CT 52403809 / Confirmed Cataract / SNOMED CT 585497633 / Confirmed Back pain / SNOMED CT 8247094659 / Confirmed A-fib / SNOMED CT 67808026 / Confirmed, Active Problems (10) A-fib Back pain Cataract Disorder of prostate Hard of hearing, left ear Hemorrhoids High blood pressure Hyperlipidemia Pneumonia Stented coronary artery x3 BPH Histories Past Medical History: No active or resolved past medical history items have been selected or recorded. Family History: No family history items have been selected or recorded. Procedure history: cataract extraction. heart cath x2. right knee total replacement. Social History Social & Psychosocial Habits Alcohol 01/27/2019 Alcohol Use History, Social Habits No Substance Abuse 01/27/2019 Recreational Drug Use History No Recreational Drug Use Last 12 Months No Tobacco 01/27/2019 Smoking Status 10 or more cigarettes (1/ Smokeless Tobacco Status Never Years of Tobacco Use 50 Packs/Tins Daily 1 . Physical Examination VS/Measurements Vital Signs/Vital Measures 02/09/2019 7:00 EDT Temperature Source Temporal artery scanning Temperature Mode Fahrenheit Temperature, Fahrenheit 98.6 Deg F Clinical Temperature, C 37 Deg C Heart Rate Monitored 57 bpm LOW Respiratory Rate 20 Breaths/Min Systolic Blood Pressure 124 mmHg Diastolic Blood Pressure 62 mmHg Oxygen Saturation 94 % Oxygen Therapy Mode Room air , Vitals Signs (last 24 hrs) Last Charted Minimum Maximum Temp 98.6 (FEBRUARY 09 07:00) 98.6 (FEBRUARY 09 07:00) 98.6 (FEBRUARY 09 07:00) Mon HR 57 (FEBRUARY 09 07:00) 57 (FEBRUARY 09 07:00) 57 (FEBRUARY 09 07:00) Resp Rate 20 (FEBRUARY 09 07:00) 20 (FEBRUARY 09 07:00) 20 (FEBRUARY 09 07:00) SBP 124 (FEBRUARY 09 07:00) 124 (FEBRUARY 09 07:00) 124 (FEBRUARY 09:00) DBP 62 (FEBRUARY 09 07:00) 62 (FEBRUARY 09 07:00) 62 (FEBRUARY 09:00) SpO2 94 (FEBRUARY 09:00) 94 (FEBRUARY 09:00) 94 (FEBRUARY 09:) General: Alert and oriented, No acute distress. Eye: Pupils are equal, round and reactive to light, Extraocular movements are intact, glasses. HENT: Normocephalic, Normal hearing. Neck: Supple, Non-tender. Respiratory: Lungs are clear to auscultation, Respirations are non-labored. Cardiovascular: Normal rate, Regular rhythm, No murmur, No gallop, No edema. Gastrointestinal: Soft, Non-tender. Genitourinary: No costovertebral angle tenderness. Lymphatics: No lymphadenopathy neck, axilla, groin. Musculoskeletal: Normal range of motion, Normal strength. Integumentary: Warm, Dry, abrasions rosales hands with bandaids. Neurologic: Alert, Oriented. Psychiatric: Cooperative, Appropriate mood & affect. Review / Management Results review: No qualifying data available. Impression and Plan Condition: Stable. documented in this encounter Plan of Treatment Not on file documented as of this encounter Visit Diagnoses Not on filedocumented in this encounter
--- OUTSIDE RECORDS SUMMARY | 2025-04-07 10:52 | XMS_ITS | Clinical Summary ---
Author Organization [facility] Address [address] [place] [address] Care Team Providers Care It Senior Software Engineer Java Name Role Phone Cheko Heredia MD Primary Care Provider + Allergies Active Allergy Reactions Criticality Noted Date Comments Sulfa Antibiotics Nausea Only Medium 05/27/2019 Medications [place]-3 Fatty Acids (FISH OIL) 1000 MG capsule capsule Take 1 capsule by mouth Daily With Breakfast. Active PSYLLIUM HUSK PO Take 0.4 g by mouth Daily. Active Apoaequorin (PREVAGEN PO) Take by mouth. Active ranolazine (RANEXA) 1000 MG 12 hr tablet Take 1 tablet by mouth Every 12 (Twelve) Hours. 05/05/20 23 Active amiodarone (PACERONE) 200 MG tablet Take 0.5 tablets by mouth Daily. 02/23/20 24 Active FLUoxetine (PROzac) 20 MG capsule Take 1 capsule by mouth Daily. 12/31/19 24 Active losartan (COZAAR) 25 MG tabletIndications :Hypertension Take 2 tablets by mouth Daily. Indications : High Blood Pressure 05/18/20 24 Active cyclobenzaprine (FLEXERIL) 5 MG tablet Take 1 tablet by mouth 3 (Three) Times a Day As Needed. 03/09/20 24 Active Xarelto 15 MG tablet Take 1 tablet by mouth Daily With Dinner. 08/25/20 24 Active metoprolol succinate XL (TOPROL-XL) 25 MG 24 hr tablet Take 0.5 tablets by mouth Every Other Day. 09/10/20 24 Active tamsulosin (FLOMAX) 0.4 MG capsule 24 hr capsule TAKE ONE CAPSULE BY MOUTH EVERY NIGHT AT BEDTIME 30 capsule 09/21/19 25 Active pantoprazole (PROTONIX) 40 MG EC tablet Take 1 Tablet by mouth once daily. 30 tablet 11 11/30/19 25 Active albuterol sulfate HFA 108 (90 Base) MCG/ACT inhalerIndication s:Shortness of breath Inhale 2 Puffs into the lungs every 4 hours as needed for Wheezing. 8.5 g 5 01/13/20 25 Active atorvastatin (LIPITOR) 10 MG tabletIndications :Mixed hyperlipidemia Take 1 Tablet by mouth once daily. 90 tablet 3 02/10/20 25 Active DULoxetine (CYMBALTA) 60 MG capsuleIndication s:Chronic midline low back pain without sciatica Take 1 Capsule by mouth once daily. 30 capsule 4 02/26/20 25 Active nitroglycerin (NITROSTAT) 0.4 MG SL tablet DISSOLVE 1 TABLET UNDER THE TONGUE NEEDED FOR CHEST PAIN. REPEAT EVERY 5 MINUTES 3 TIMES. IF NO RELIEF GO TO ER. 25 tablet 02/26/20 25 Active Jardiance 10 MG tablet tabletIndications :Type 2 diabetes mellitus with hyperglycemia, without long-term current use of insulin Take 1 Tablet by mouth once daily. 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 90 tablet 03/11/20 25 Active diazePAM (VALIUM) 5 MG tabletIndications :Chronic pain syndrome,Anxiety about health Take 1 tablet by mouth Every 12 (Twelve) Hours As Needed for Anxiety. 60 tablet 2 03/11/20 25 Active docusate sodium 100 MG capsule Take 1 capsule by mouth. 025 Discontinued(* Therapy completed) diazePAM (VALIUM) 5 MG tabletIndications :Chronic pain syndrome,Anxiety about health Take 1 tablet by mouth Every 12 (Twelve) Hours As Needed for Anxiety. 60 tablet 2 12/11/19 25 025 Discontinued(R eorder) Jardiance 10 MG tablet tabletIndications :Type 2 diabetes mellitus with hyperglycemia, without long-term current use of insulin Take 1 Tablet by mouth once daily. 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 diazePAM (VALIUM) 5 MG tablet; Take 1 tablet by mouth Every 12 (Twelve) Hours As Needed for Anxiety. Assessment & Plan (12/10/2024 3:47 PM EDT): Orders: oxyCODONE-acetaminophen (PERCOCET) 5-325 MG per tablet; Take 1 tablet by mouth Every 8 (Eight) Hours As Needed for Severe Pain. diazePAM (VALIUM) 5 MG tablet; Take 1 tablet by mouth Every 12 (Twelve) Hours As Needed for Anxiety. Assessment & Plan (08/15/2022 3:01 PM EST): Stable. Refill Oxycodone. Spondylosis of lumbar region without myelopathy or radiculopathy 01/10/2022 Assessment & Plan (12/10/2024 3:47 PM EDT): Orders: oxyCODONE-acetaminophen (PERCOCET) 5-325 MG per tablet; Take 1 tablet by mouth Every 8 (Eight) Hours As Needed for Severe Pain. 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 01/10/2022 Chronic systolic heart failure 11/01/2016 Overview (11/01/2016): Echocardiogram 08/22/2016: EF 30%, moderate MR, mild pulmonary hypertension Ischemic cardiomyopathy 10/17/2016 Generalized weakness 09/01/2016 Pleural effusion 09/01/2016 Paroxysmal atrial fibrillation 08/31/2016 Assessment & Plan (12/10/2024 3:47 PM EDT): Orders: TSH Rfx On Abnormal To Free T4 Persistent atrial fibrillation 07/11/2016 Overview (11/01/2016): Diagnosed at [facility] with initiation of Xarelto and amiodarone, June 2016 Symptomatic with fatigue symptoms Chads VASC = 3 Unsuccessful external cardioversion, 07/11/16 Internal cardioversion, 10/24/16 GERD (gastroesophageal reflux disease) 6 Nicotine addiction 04/02/2016 Overview (10/03/2016): Current every day smoker Bilateral carotid artery stenosis 01/30/2016 Overview (04/02/2016): 1. Carotid ultrasound, 06/06/2015, suggests total occlusion involving the right internal carotid artery with 50% to 69% occlusion to the left internal carotid artery. 2. CTA of the neck, 07/12/2015: Atherosclerotic disease of the left carotid bifurcation with no significant stenosis of the left internal carotid artery. Occlusion of the right internal carotid artery at its origin with atherosclerotic disease seen at the distal right common carotid artery. Occlusion of the left vertebral artery at its origin. 3. EKG, 01/09/2016: Normal sinus rhythm, normal ECG with a ventricular rate of 82 beats per minute. MT interval 164 milliseconds, QRS duration 96 milliseconds, QTC 418 milliseconds. Coronary artery disease invo lving [place] coronary artery of [place] heart without angina pectoris 01/30/2016 Overview (07/11/2016): November 2002 - Left heart catheterization with moderate LAD and circumflex stenosis with a 3.0 x 16 Express II stent to the proximal RCA per LTB, normal LVEF. March 2006 - Adenosine Cardiolite with normal perfusion, EF preserved. Inability to exercise greater than 3 minutes by Severo protocol. March 2009 - A 3.5 x 20 Taxus Liberte stent to circumflex with noted totally occluded RCA that fills with collateral circulation. Normal LVEF. April 2010 - Chest pain with catheterization revealing FINE GRADE OPERATOR of RCA collateralized, normal LVEF. Unchanged from prior. January 2016 -- cardiac catheterization by Rudolph Jj revealing FINE GRADE OPERATOR of RCA (collateralized) and 90% stenosis of the first obtuse marginal branch status post ESDRAS. Hyperlipidemia LDL goal <70 01/30/2016 Essential hypertension 01/30/2016 Depression 01/30/2016 Assessment & Plan (08/15/2022 3:51 PM EST): Patient's depression is recurrent and is moderate without psychosis. Their depression is currently active and the condition is worsening. This will be reassessed at the next regular appointment. F/U as described:patient was prescribed an antidepressant medicine. Add low-dose bupropion to 100 mg daily to his Cymbalta 60 mg Chronic back pain 01/30/2016 Arthritis 01/30/2016 Carotid stenosis Hypertension Hyperlipidemia Resolved Problems Problem Noted Date Diagnosed Date Resolved Date Claudication 04/02/2016 08/26/2023 Overview (04/02/2016): a. Pseudoclaudication status post lumbar disk surgery, Dr. Montague, 2010, with improved right lower extremity pain. b. Reported right knee ligament damage, data deficient. Now, status post right total knee replacement surgery in 2014. Encounters Date Type Department Care Team Description 03/11/2025 2:00 PM EDT Office Visit [facility] [address] [facility] [place] [address] Cheko Heredia MD Type 2 diabetes mellitus with hyperglycemia, without long-term current use of insulin (Primary Dx); Chronic pain syndrome; Chronic pain syndrome; Spondylosis of lumbar region without myelopathy or radiculopathy; Anxiety about health 03/11/2025 Travel 03/10/2025 Refill [facility] [address] [facility] [place] [address] Cheko Heredia MD Type 2 diabetes mellitus with hyperglycemia, without long-term current use of insulin 02/25/2025 Refill [facility] [address] [place] [address] Cheko Heredia MD Chronic midline low back pain without sciatica 02/09/2025 Refill [facility] [address] [place] [address] Cheko Heredia MD Mixed hyperlipidemia 02/08/2025 Refill [facility] [address] [place] [address] Cheko Heredia MD Chronic pain syndrome; Spondylosis of lumbar region without myelopathy or radiculopathy 01/12/2025 Refill [facility] [address] [place] [address] Cheko Heredia MD Shortness of breath 01/10/2025 Refill [facility] [address] [place] [address] Cheko Heredia MD Chronic pain syndrome; Spondylosis of lumbar region without myelopathy or radiculopathy from Last 3 Months Immunizations Immunization Administration Dates Next Due COVID-19 (MODERNA) 1st,2nd,3 rd Dose Monovalent 07/20/2021,11/25/2020,10/28/2020 COVID-19 (PFIZER) BIVALENT 12+YRS 08/15/2022 Fluzone High-Dose 65+yrs 07/21/2023,07/15/2022 Influenza, Unspecified 06/15/2022,06/15/2021 Pneumococcal Polysaccharide (PPSV23) 09/15/2019, 06/04/2016 Td (TDVAX) 11/18/1996 influenza Split 07/30/2016 Family History Medical History Relation Name Comments Cancer Brother Emphysema Brother No Known Problems Father Diabetes Mother Heart disease Mother Hypertension Mother Arthritis Sister 1 No Known Problems Sister 2 No Known Problems Sister 3 No Known Problems Sister 4 Relation Name Status Comments Brother Alive Father Mother Sister 1 Alive Sister 2 Alive Sister 3 Alive Sister 4 Alive Social History Tobacco Use Types Packs/Day Years [...] Industry Job Start Date Job End Date [employer] Not on file Not on file Not on file Last Filed Vital Signs [...] Mass Index 28.09 03/11/2025 1:51 PM EDT Plan of Treatment Upcoming Encounters Date Type Department Care Team (Late st Contact Info) Description 06/13/2025 3:00 PM EDT Office Visit [facility] [address] [place] [address] Cheko Heredia MD [address] [place] [place] [address] 12/12/2025 2:15 PM EDT Office Visit [facility] [address] [place] [address] Cheko Heredia MD [address] [place] [address] Scheduled Procedures Name Priority Associated Diagnoses Date/Ti me ABLATION A-FIB Atrial fibrillation with RVR Cardiomyopathy, dilated, nonischemic Essential hypertension Health Maintenance Due Date Last Done Comments DIABETIC FOOT EXAM 1956 COLOGUARD 1991 COLON CANCER SCREENING 5 YEA R SIGMOIDOSCOPY 1991 [address] COLONOGRAPHY 1991 FECAL OCCULT BLOOD TEST 1991 FIT Testing (1 year) 1991 ZOSTER VACCINE (1 of 2) 1996 TDAP/TD VACCINES (2 - Tdap) 11/18/2006 11/18/1996 HEPATITIS C SCREENING 01/28/2017 Pneumococcal Vaccine 50+ (2 of 2 - PCV) 09/15/2020 09/15/2019, 06/04/2016 RSV Vaccine - Adults (1 - 1- dose 75+ series) 2021 DIABETIC EYE EXAM 11/02/2021 11/02/2020, , 04/21/2017, Additional history exists COVID-19 Vaccine (5 - 2023-2 5 season) 2024 08/15/2022, 07/20/2021, 11/25/2020, Additional history exists HEMOGLOBIN A1C 06/12/2025 12/10/2024, 02/14, 08/26/2023, Additional history exists INFLUENZA VACCINE 06/15/2025 08/09/2024, , 07/21/2023, Additional history exists ANNUAL WELLNESS VISIT 12/10/2025 12/10/2024 , 12/10/2024, 08/26/2023, Additional history exists LIPID PANEL 12/10/2025 12/10/2024, 0911/2023, 08/26/2023, Additional history exists URINE MICROALBUMIN-CREATININ E RATIO (uACR) 12/10/2025 12/10/2024 COLONOSCOPY 07/29/2034 07/29/2024, 04/16, 05/05/2020, Additional history exists COLORECTAL CANCER SCREENING 07/29/2034 LUNG CANCER SCREENING Discontinued 05/16/2016 Medical Devices Implanted Type Area Media Manager Device Identifier Shelf Expiration Date Model / Serial / Lot Stent Stent Stent Description:3 cardiac stents Stent Description:3 cardiac stents Stent Description:3 cardiac stents Procedures Procedure Name Priority Date/Time Associated Diagnosis Comments POC ALBUMIN/CREATININE RATIO Routine 12/10/2024 3:26 PM EDT Type 2 diabetes mellitus with hyperglycemia, without long-term current use of insulin HEMOGLOBIN A1C Routine 12/10/2024 3:04 PM EDT Type 2 diabetes mellitus with hyperglycemia, without long-term current use of insulin LIPID PANEL Routine 12/10/2024 3:04 PM EDT Type 2 diabetes mellitus with hyperglycemia, without long-term current use of insulin SCANNED - INFLUENZA 07/21/2023 from Last 3 Months or Most Recently Relevant to Health Maintenance Results * POC Albumin/Creatinine Ratio Urine (12/10/2024 3:26 PM EDT) POC ALBUMIN, URINE 30 mg/L POC CREATININE, URINE 100 mg/dL POC Urine Albumin Creatinine Ratio <30 mg/g <30 Comment:normal Lot Number [id number] Expiration Date 10/15/2025 Urine 12/10/2024 3:26 PM EDT Cheko Heredia MD POINT OF CARE TEST ORDER ZORAIDA Final Result * (ABNORMAL) Hemoglobin A1c (12/10/2024 3:04 PM EDT) Hemoglobin A1C 6.5(H) 4.8 - 5.6 % [facility] Comment: Prediabetes: 5.7 - 6.4 Diabetes: >6.4 Glycemic control for adults with diabetes: <7.0 Blood 12/10/2024 3:04 PM EDT 12/10/2024 Narrative [facility] (AMBULATORY) - 12/11/2024 6:09 AM EDT Performed at: [facility] [id number] [place] Guide: Jose Weller PhD, Phone: [phone] Patient Fasting: Y Cheko Heredia MD LAB BLOOD ORDERABLES Fin al Result Performing Organization Address City/[facility]/ZIP Co de Phone Number [facility] (AMBULATORY) [address] [place] [address], [place] [phone] [facility] [address] [place] [address], [place] [phone] * (ABNORMAL) Lipid Panel (12/10/2024 3:04 PM EDT) [facility] Total Cholesterol 152 100 - 199 mg/dL [facility] Triglycerides 243(H) 0 - 149 mg/dL [facility] HDL Cholesterol 52 >39 mg/dL [facility] VLDL Cholesterol Kirt 39 5 - 40 mg/dL [facility] LDL Chol Calc (NIH) 61 0 - 99 mg/dL [facility] Blood 12/10/2024 3:04 PM EDT 12/10/2024 Narrative [facility] (AM[facility]UL[facility]ORY) - 12/11/2024 6:09 AM EDT Performed at: 01 - [facility] [address] [place], [place] [id number] [place] Guide: Jose Weller PhD, Phone: [phone] Patient Fasting: Y Cheko Heredia MD LAB BLOOD ORDERABLES Fin al Result Performing Organization Address City/[facility] Co de Phone Number [facility] [address] [place] [address], [place] [phone] [facility] [address] [place] [address], [place] [phone] * SCANNED - INFLUENZA (07/21/2023) [facility] CHART REVIEW TABS Final Re sult from Last 3 Months or Most Recently Relevant to Health Maintenance Insurance MEDICARE A & B [facility] Advance Directives * Full Code (Latest Code Status on File) Date Activated Date Inactivated Comments 09/01/2016 12:25 AM 09/02/2016 3:37 PM Care Teams It Senior Software Engineer Java Relationship Specialty Start Date End Date Cheko Heredia MD [address] [place] [address] [facility] Filomena [place] [address] PCP - General Family Medicine 01/10/22
--- OUTSIDE RECORDS SUMMARY | 2025-04-07 10:52 | XMS_ITS | Encounter Summary ---
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 - [employer] Social History Tobacco Use [...] Description 06/13/2025 3:00 PM EDT Office Visit [facility] [address] [address] Cheko Heredia MD [address] [place] [address] 12/12/2025 2:15 PM EDT Office Visit [facility] [address] [place] [address] Cheko Heredia MD [address] [place] [address] Scheduled Procedures Name Priority Associated Diagnoses Date/Ti me ABLATION A-FIB Atrial fibrillation with RVR Cardiomyopathy, dilated, nonischemic Essential hypertension documented as of this encounter Visit Diagnoses Not on filedocumented in this encounter Care Teams Bilingual Sales Representative Relationship Specialty Start Date End Date Cheko Heredia MD [address] [place] [address] PCP - General Family Medicine 01/10/22 documented as of this encounter
--- OUTSIDE RECORDS SUMMARY | 2025-04-07 10:52 | XMS_ITS | Encounter Summary ---
Author Organization [facility] Address [address] [place] [address] Care Team Providers Care Frame Sample And Pattern Supervisor Name Role Phone Cheko Heredia MD Primary Care Provider + Encounter Details Date Type Department Care Team (Late st Contact Info) Description 10/24/2014 External CPT II HEALTH PSYCHOLOGIST - [facility] Social History Tobacco Use [...] Description 06/13/2025 3:00 PM EDT Office Visit [facility] [address] [address] Cheko Heredia MD [address] [place] [address] 12/12/2025 2:15 PM EDT Office Visit [facility] [address] [place] [address] Cheko Heredia MD [address] [place] [address] Scheduled Procedures Name Priority Associated Diagnoses Date/Ti me ABLATION A-FIB Atrial fibrillation with RVR Cardiomyopathy, dilated, nonischemic Essential hypertension documented as of this encounter Visit Diagnoses Not on filedocumented in this encounter Care Teams Frame Sample And Pattern Supervisor Relationship Specialty Start Date End Date Cheko Heredia MD [address] [place] [address] PCP - General Family Medicine 01/10/22 documented as of this encounter
--- OUTSIDE RECORDS SUMMARY | 2025-04-07 10:52 | XMS_ITS | Encounter Summary ---
Author Organization [facility] [address] Care Team Providers Care Abrading Machine Tender Name Role Phone Unavailable Primary Care Provider Unavailabl e Reason for Visit * Reason Onset Date Comments Other 04/04/2025 Encounter Details Date Type Department Care Team (Late st Contact Info) Description 04/04/2025 Telephone Structural Hrt/Valve [address] [facility] [address] [place] [id number] Renetta Conklin RN Other Social History Tobacco Use Types Packs/Day Years [...] encounter Miscellaneous Notes * Telephone Encounter - Renetta Conklin RN - 04/04/2025 3:34 PM EDT Summary: Watchman Pt needs Shared Decision appt.to move forward with Watchman procedure. LM for pt with contact information. documented in this encounter Plan of Treatment Not on file documented as of this encounter Visit Diagnoses Not on filedocumented in this encounter Additional Health Concerns Assessment Noted Time A fall risk assessment has been complete d for the patient 09/28/2024 1:34 PM EST documented as of this encounter
--- OUTSIDE RECORDS SUMMARY | 2025-04-07 10:52 | XMS_ITS | Clinical Summary ---
Author Organization [employer] ([place], [place], [place], [place]) Address [address] [place] [address] Care Team Providers Care Curb Worker Name Role Phone Unavailable Primary Care Provider Unavailabl e Social History Tobacco Use Types Packs/Day Years Used Date Smoking Tobacco: Never Assessed Sex and Gender Information Value Date Recorded Sex Assigned at Male 03/14/2022 12:41 PM CDT Legal Sex Male 6:35 PM CDT Gender Identity Male 03/14/2022 12:41 PM CDT Sexual Orientation Not on file Plan of Treatment Not on file
--- OUTSIDE RECORDS SUMMARY | 2025-04-07 10:52 | XMS_ITS | Encounter Summary ---
Author Organization [email or web address] ([place], [place], [place], [place]) Address [address] [place] [address] Care Team Providers Care Auto Job Estimator Name Role Phone Unavailable Primary Care Provider Unavailabl e Encounter Details Date Type Department Care Team (Late st Contact Info) Description 02/09/2019 Transcribed Document [facility] [place] [facility] [place] [address] ProviderSoham MD [place] [address] Social History Tobacco Use Types [...] Soham ProviderMD - 02/09/2019 8:33 AM CDT [facility] Main OR Preop Summary Primary Physician: EZ ODOM MD-URO Finalized Date/Time: 02/09/19 09:15:02 Pt. Name: MINO HSU /Sex: 1945 Male Med Rec #: [id number] Physician: EZ ODOM MD-URO Financial #: [id number] Pt. Type: O Room/Bed: /4 Admit/Disch: 02/09/19 06:12:00 - Institution: [facility] PreOp Case Times Entry 1 In Preop 02/09/19 06:27:00 Ready for Holding n/a Room Patient Ready for 02/09/19 07:23:00 Surgery Patient Out of Preop 02/09/19 08:15:00 Patient Out of n/a Holding Room Last Modified By: Reisner, Vielka, RN 02/09/19 09:15:01 [facility] PreOp Case Times Audit 02/09/19 09:15:01 Dressed Poultry Grader: GIBRAN Modifier: REISNERK <+> 1 Patient Out of Preop 02/09/19 07:31:13 Dressed Poultry Grader: GIBRAN Modifier: REISNERK <+> 1 In Preop Finalized By: Vielka Dillon, RN Document Signatures Signed By: Vielka Dillon RN 02/09/19 09:15 Electronically signed by Tasha [facility] Conversion Cable Engineer Cerner at 12/30/2022 10:00 AM CDT documented in this encounter Plan of Treatment Not on file documented as of this encounter Visit Diagnoses Not on filedocumented in this encounter
--- OUTSIDE RECORDS SUMMARY | 2025-04-07 10:52 | XMS_ITS | Encounter Summary ---
Author Organization [employer] ([place], [place], [place], [place]) Address [address] [place] [address] Care Team Providers Care Stove Polisher Name Role Phone Unavailable Primary Care Provider Unavailabl e Encounter Details Date Type Department Care Team (Late st Contact Info) Description 02/09/2019 Transcribed Document [facility] [place] Family Medicine Critical [place] [address] ProviderSoham MD [place] [address] Social History Tobacco Use Types [...] Soham ProviderMD - 02/09/2019 8:33 AM CDT [facility] Main OR IntraOp Summary Primary Physician: EZ ODOM MD-URO Finalized Date/Time: 02/10/19 10:14:52 Pt. Name: MINO BROWN Rudi /Sex: 1945 Male Med Rec #: [id number] Physician: EZ ODOM MD-URO Financial #: [id number] Pt. Type: O Room/Bed: /4 Admit/Disch: 02/09/19 06:12:00 - 02/09/19 10:22:00 Institution: [facility] IntraOp Case Attendance Entry 1 Entry 2 Entry 3 Case Attendee EZ ODOM CORNEA, MIHAELA, MD BREITIGAN, STEPHEN, CRNA MD-URO Role Performed Surgeon/Proceduralist, Anesthesiologist of SALES TEAM MANAGER/Nurse Linen Supply Load Builder First Record Time In 02/09/19 08:17:00 02/09/19 08:17:00 02/09/19 08:17:00 Time Out 02/09/19 09:27:00 02/09/19 09:27:00 02/09/19 09:27:00 Procedure Prostate Green Light Prostate Green Light Prostate Green Light Laser Laser Laser Other Attendee Superficial Wound Closed By: Last Modified By: Swapna Vasquez RN Poff, Janie, RN Poff, Janie, RN 02/09/19 09:27:39 02/09/19 09:27:39 02/09/19 09:27:39 Entry 4 Entry 5 Entry 6 Case Attendee Swapna Vasquez, HERO DOUGLAS MD Madden, Jerrild Role Performed Space Systems Operations Craftsman, First Resident Laser Steam Frame Operator Time In 02/09/19 08:17:00 02/09/19 08:17:00 02/09/19 08:17:00 Time Out 02/09/19 09:27:00 02/09/19 09:27:00 02/09/19 09:27:00 Procedure Prostate Green Light Prostate Green Light Prostate Green Light Laser Laser Laser Other Attendee Superficial Wound Closed By: Last Modified By: Swapna Vasquez RN Poff, Janie, RN Poff, Janie, RN 02/09/19 09:27:39 02/09/19 09:27:39 02/09/19 09:27:39 Entry 7 Case Attendee ISH BARRON Role Performed Scrub, First Time In 02/09/19 08:17:00 Time Out 02/09/19 09:27:00 Procedure Prostate Green Light Laser Other Attendee Superficial Wound Closed By: Last Modified By: Swapna Vasquez RN 02/09/19 09:27:39 [facility] IntraOp Case Attendance Audit 02/09/19 09:27:39 Street Photographer: KARINA Modifier: KARINA 1 <+> Time Out 1 <*> Procedure Prostate Green Light Laser 2 <+> Time In 2 <+> Time Out 2 <*> Procedure Prostate Green Light Laser 3 <+> Time In 3 <+> Time Out 3 <*> Procedure Prostate Green Light Laser 4 <+> Time In 4 <+> Time Out 4 <*> Procedure Prostate Green Light Laser 5 <+> Time In 5 <+> Time Out 5 <*> Procedure Prostate Green Light Laser 6 <+> Time In 6 <+> Time Out 6 <*> Procedure Prostate Green Light Laser 7 <+> Time In 7 <+> Time Out 7 <*> Procedure Prostate Green Light Laser [facility] IntraOp Case Times Entry 1 Patient In Room Time 02/09/19 08:17:00 Out Room Time 02/09/19 09:27:00 Anesthesia Start Time 02/09/19 08:17:00 Stop Time 02/09/19 09:27:00 Surgery / Procedure Times Start Time 02/09/19 08:33:00 Stop Time 02/09/19 09:16:00 Last Modified By: Swapna Vasquez RN 02/09/19 09:27:27 [facility] IntraOp Case Times Audit 02/09/19 09:27:27 Street Photographer: KARINA Modifier: POFFJAN <+> 1 Out Room Time <+> 1 Stop Time 02/09/19 09:16:05 Street Photographer: MANUELFFKULWINDER Modifier: POFFJAN <+> 1 Stop Time [facility] IntraOp Communication Entry 1 Communication To Family/Significant other Comment Start Communication By Swapna Vasquez RN Date and Time 02/09/19 08:33:00 Last Modified By: Swapna Vasquez RN 02/09/19 08:44:49 [facility] IntraOp Delays Entry 1 Delay Reason Surgeon late - no reason Duration 17 Minute(s) Comment surgeon at bedside at 0810 Last Modified By: Swapna Vasquez RN 02/09/19 08:37:30 [facility] IntraOp Departure from OR Entry 1 Integumentary Assessment Integumentary WDL Assessment WDL Transfer/Handoff Transfer to PACU Phase I Handoff Method Phone call Handoff Reported to JEFFERSON MATHUR RN Post-op Transport Stretcher/Gurney Via Patient Transport ALEX CORDERO, Accompanied by CHANDA MOLINA JOHN, MD Last Modified By: Swapna Vasquez RN 02/09/19 09:27:52 [facility] IntraOp Departure from OR Audit 02/09/19 09:27:52 Street Photographer: POFFJAN Modifier: POFFJAN <+> 1 Handoff Reported to 02/09/19 09:19:07 Street Photographer: POFFJAN Modifier: POFFJAN <+> 1 Patient Transport Accompanied by [facility] IntraOp Fire Risk Assessment Entry 1 Fire Info Surgical Site or 0- No Incision Above the Xyphoid Open O2 Source 0- No (Mask or Cannula) Available Ignition 1- Yes (ESU, Laser, Light Source) Fire Risk 1 Assessment Score Fire Score Fire Risk Yes Assessment Complete Fire Risk Swapna Vasquez RN Assessment Verified By Fire Risk 02/09/19 08:32:00 Assessment Verified Date/Time Fire Risk Standard Fire Yes Safety Precautions Followed Last Modified By: Swapna Vasquez RN 02/09/19 08:41:29 [facility] IntraOp General Case Bladder Tier 1 Case Information OR OR 03 [facility] Case Level 1 Room Verified Yes Wound Class II - Clean-Contaminated Specialty SN Urology Anesthesia Type General ASA Class 3 Diagnosis 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 Postop Same As Preop Yes 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 Last Modified By: Sawpna Vasquez RN 02/09/19 09:00:23 [facility] IntraOp General Case Data Audit 02/09/19 09:00:23 Street Photographer: MANUELLEWISKULWINDER Modifier: POEDSON <+> 1 Postop Same As Preop <+> 1 Preop Diagnosis <+> 1 Postop Diagnosis [facility] IntraOp Intraoperative Assessment Entry 1 Handoff Method Online nursing summary Valid History / Yes Physical in Chart Preoperative Yes Checklist Reviewed/Evaluated Allergies Reviewed Yes Patient is Latex No Sensitive Isolation Not applicable Precautions Noted Level of WDL Consciousness (WDL = Alert, Oriented to Person, Place, and Time) Skin Assessment Yes Verified Present Upon IVs Arrival to OR Last Modified By: Swapna Vasquez RN 02/09/19 08:43:17 [facility] IntraOp Intraoperative Equipment Entry 1 Type Monitoring Equipment Intraop Monitoring Electrocardiogram Three lead placement (ECG) Electrode Placement Blood Pressure Non-Invasive BP Device Source Blood Pressure Arm, right upper Location Pulse Oximeter Hand, left Probe Site Antiembolic Devices Antiembolic Devices Sequential compression device, knee high Antiembolic Device Bilateral Location Antiembolic Device [id number] ID Number Scopes Photo/Video Documentation Photo No Video No Intraop Equipment Sequential compression Comment devices on and in operation prior to induction of anesthesia. Last Modified By: Swapna Vasquez RN 02/09/19 08:44:16 [facility] IntraOp Medication Admin Entry 1 Entry 2 Entry 3 Medication/Irrigant ZIGGY IRR 0.9% NACL B&O 16A Suppository - ZIGGY IRR NACL 0.9PCT 1000ML --[id number] 3000ML-[id number] Combo Med List Time Administered 02/09/19 08:33:00 02/09/19 09:16:00 02/09/19 08:33:00 Route of Irrigation (for laser) Rectal Irrigation Administration Dose Dose 60 Unit of Measure mg Volume Administered By HERO ARMAS MD LOOMIS, JOHN, MD LOOMIS, JOHN, MD Procedure Irrigation Irrigant Volume In 200 mL 9750 mL Irrigant Volume Out 200 mL 9750 mL Last Modified By: Swapna Vasquez RN Poff, Janie, RN Poff, Janie, RN 02/09/19 09:18:40 02/09/19 09:18:40 02/09/19 09:18:40 Entry 4 Medication/Irrigant lidocaine 2% urojet 10ml jelly - [id number] Combo Med List Time Administered 02/09/19 09:14:00 Route of Local, urethra Administration Dose Dose 10 Unit of Measure ml Volume Administered By HERO ARMAS MD Procedure Irrigation Irrigant Volume In Irrigant Volume Out Last Modified By: Swapna Vasquez RN 02/09/19 09:18:40 [facility] IntraOp Medication Admin Audit 02/09/19 09:18:40 Street Photographer: KARINA Modifier: KARINA 1 <*> Administered By EZ ODOM MD-URO 1 <+> Irrigant Volume In 1 <+> Irrigant Volume Out 2 <*> Medication/Irrigant B&O 16A Suppository - [id number] <+> Dose 2 <+> Time Administered 3 <*> Medication/Irrigant ZIGGY IRR NACL 0.9PCT [id number] 3 <+> Irrigant Volume In 3 <+> Irrigant Volume Out 4 <*> Medication/Irrigant lidocaine 2% urojet 10ml jelly - [id number] 4 <+> Time Administered 02/09/19 08:47:57 Street Photographer: KARINA Modifier: KARINA <+> 4 Medication/Irrigant <+> 4 Route of Administration <+> 4 Administered By <+> 4 Dose <+> 4 Unit of Measure [facility] IntraOp Patient Positioning Entry 1 Procedure Prostate Green Light Laser Body Position Lithotomy Left Arm Position Resting at side Right Arm Position Resting at side Left Leg Position Secured in Leg Givens Right Leg Position Secured in Leg Givens Feet Uncrossed Yes Pressure Points Yes Checked Positioning Devices Head Rest, Pad, Elbow, Pad, Elbow, Stirrups/Leg Givens, Cysto, Table, Cysto Positioned By EZ ODOM MD-URO, ALEX CORDERO CRNA, HERO ARMAS MD Position Verified Positioning Yes Verified by Anesthesia Positioning Yes Verified by Surgeon Last Modified By: Swapna Vasquez RN 02/09/19 08:41:05 [facility] IntraOp Sign In Entry 1 Patient, Site, Yes Procedure Identified Surgical Consent Yes Confirmed Relevant Surgical Yes Documents Available Surgical Site N/A Marked by person performing procedure Anesthesia Machine Yes Check Completed Medication Checks Yes Completed Allergies Yes Airway Difficult Yes Airway/Aspiration Risk Difficult Yes Airway/Aspiration Intervention Equipment Available Blood Loss Risk Yes Blood Loss Yes Intervention Equipment Prepared and Ready Blood Identifiers Not applicable Verified Per Policy Hypothermia Risk Yes Warming Measures Yes Taken Last Modified By: Swapna Vasquez RN 02/09/19 08:37:40 [facility] IntraOp Sign Out Entry 1 RN Confirmation Surgical Yes Procedure(s) Identified Instrument, Sponge N/A and Sharps Counts Correct/Documented Equipment Problems N/A Documented Specimen Labeled N/A Correctly Urinary Catheter Yes Documented in IView Farias Patient Yes Recovery Concerns Reviewed with Anesthesia Provider, Surgeon and RN Farias Patient Yes Management Concerns Reviewed with Anesthesia Provider, Surgeon and RN Safety Checklist Yes Elements Complete? RN Sign Out Swapna Vasquez RN Signature RN Sign Out 02/09/19 09:27:00 Signature Date/Time Plan of Care Outcome - Fire Risk OUTCOME STATEMENT: Goal met Patient is free from injury related to surgical fire Plan of Care Outcome - Pt Positioning OUTCOME STATEMENT: Goal met Absence of signs and symptoms of positioning injury. Plan of Care Outcome - Skin Prep OUTCOME STATEMENT: Goal met Intraoperative care is consistent with measures to prevent infection Plan of Care Outcome - Xray/Images OUTCOME STATEMENT: N/A Absence of observable signs or symptoms of radiation injury Plan of Care Outcome - Counts OUTCOME STATEMENT: Goal met Absence of signs and symptoms of injury related to extraneous objects Last Modified By: Swapna Vasquez RN 02/09/19 09:27:35 [facility] IntraOp Sign Out Audit 02/09/19 09:27:35 Street Photographer: KARINA Modifier: KARINA <+> 1 RN Sign Out Signature Date/Time 02/09/19 09:18:55 Street Photographer: KARINA Modifier: KARINA <+> 1 Urinary Catheter Documented in IView [facility] IntraOp Skin Prep Entry 1 Procedure Prostate Green Light Laser Prescribed Yes Pre-Surgical Prep Completed Prep Area Genitalia Intraop Prep Integumentary WDL Assessment WDL Prep Agents Betadine solution Prep by Swapna Vasquez RN Hair Removal Last Modified By: Swapna Vasquez RN 02/09/19 08:43:49 [facility] IntraOp Surgical Procedures Entry 1 Procedure Prostate Green Light Laser Additional GREENLIGHT LASER OF Procedure PROSTATE Description Primary Procedure Yes Primary Surgeon EZ ODOM MD-URO Start 02/09/19 08:33:00 Stop 02/09/19 09:16:00 Anesthesia Type General Specialty SN Urology Wound Class II - Clean-Contaminated Last Modified By: Swapna Vasquez RN 02/09/19 09:16:11 [facility] IntraOp Surgical Procedures Audit 02/09/19 09:16:11 Street Photographer: KARINA Modifier: KARINA <+> 1 Stop [facility] IntraOp Temp Regulation Devices Entry 1 Temp Regulation Temperature Warm blankets, Room Regulation Device temperature Temperature Upper body Regulation Site Temperature Swapna Vasquez RN Regulation Device Applied by Temperature Patient's temperature Regulation Comment monitored by anesthesia provider. Forced air warming device settings controlled by anesthesia provider. Last Modified By: Swapna Vasquez RN 02/09/19 08:44:27 [facility] IntraOP Time Out Entry 1 Procedure to be Prostate Green Light Performed Laser Time Out Time Out Pause Time 02/09/19 08:32:00 All activity Yes suspended (unless life threatening emergency) Team Verbally Correct patient Confirms Information identity, Consent form is present and accurate, Agreement on the procedure to be done, Correct patient position, Relevant images/results properly labeled/appropriately displayed, Confirm antibiotics have been administered, Confirm the skin prep has dried, Confirm prosthesis/implant/devic e is present, Performed in location of procedure after prepped/draped Antibiotic Yes Prophylaxis Administered Or In Progress Within the Last 60 Minutes Beta Erickson Yes Administered Venous Yes Thromboembolism Prophylaxis Required Anticipated Critical Events Surgeon None expected Anesthesia Provider None expected Nursing Assures Sterility of instruments Essential Imaging Yes Labeled and Displayed Last Modified By: Swapna Vasquez RN 02/09/19 08:41:59 Case Comments <None> Finalized By: ALMA DELIA HOANG Document Signatures Signed By: Swapna Vasquez RN 02/09/19 09:28 ALMA DELIA HOANG 02/10/19 10:14 Unfinalized History Date/Time Username Reason for Unfinalizing Freetext Reason for Unfinalizing 02/10/19 10:14 [facility] Correct Billing documented in this encounter Plan of Treatment Not on file documented as of this encounter Visit Diagnoses Not on filedocumented in this encounter
--- OUTSIDE RECORDS SUMMARY | 2025-04-07 10:52 | XMS_ITS | Encounter Summary ---
Author Organization [employer] ([place], [place], [place], [place]) Address [address] [place] [address] Care Team Providers Care Speech Correction Assistant Name Role Phone Unavailable Primary Care Provider Unavailabl e Encounter Details Date Type Department Care Team (Late st Contact Info) Description 02/09/2019 Transcribed Document [facility] [place] Family Medicine [facility] [place] [address] ProviderSoham MD [facility] [place] [address] Social History Tobacco Use Types [...] Soham ProviderMD - 02/09/2019 8:33 AM CDT [facility] Main OR PostOp Summary Primary Physician: EZ ODOM MD-URO Finalized Date/Time: 02/09/19 12:22:42 Pt. Name: HSUMINO BLANCHARD /Sex: 1945 Male Med Rec #: [id number] Physician: EZ ODOM MD-URO Financial #: [id number] Pt. Type: O Room/Bed: /4 Admit/Disch: 02/09/19 06:12:00 - Institution: [facility] Main OR PostOp Case Times Entry 1 In PACU II 02/09/19 10:36:00 Ready for PACU II 02/09/19 11:15:00 Discharge Discharge from PACU 02/09/19 12:22:00 II Last Modified By: EMELY HINSON, ERIK 02/09/19 12:22:27 [facility] Main OR PostOp Case Times Audit 02/09/19 12:22:27 Solutions Manager: IESHA Modifier: IESHA 1 <*> Ready for PACU II Discharge 02/09/19 11:34:00 1 <+> Discharge from PACU II Finalized By: EMELY HINSON RN Document Signatures Signed By: EMELY HINSON RN 02/09/19 12:22 Electronically signed by Tasha [facility] Conversion Rock Mason Cerner at 12/30/2022 9:37 AM CDT documented in this encounter Plan of Treatment Not on file documented as of this encounter Visit Diagnoses Not on filedocumented in this encounter
--- OUTSIDE RECORDS SUMMARY | 2025-04-07 10:52 | XMS_ITS | Referral Summary ---
Author Organization [employer] ([place], [place], [place], [place]) Address [address] [place] [address] Care Team Providers Care Lay Out Worker Name Role Phone Unavailable Primary Care [...]
[2025-04-07] MEDS: ACETAMINOPHEN 500MG TAB 1000 MG PO (11:02)
[2025-04-07] MEDS: ASPIRIN 325MG TABLET 325 MG PO (11:02)
[2025-04-07 11:06] LABS: Albumin Level 4.7 g/dl (3.5-5.0); Chloride 99 mmol/L (98-107); Potassium 3.9 mmoL/L (3.5-5.1); Sodium 136 mmol/L (136-145)
[2025-04-07] MEDS: MAGNESIUM SULFATE IN WATER 2 GM/50 ML PIGGYBACK IV (11:06)
[2025-04-07] MEDS: RINGERS SOLUTION,LACTATED 500 ML 999 ML IV (11:06)
[2025-04-07 11:08] LABS: Hematocrit 50.1 % (42.0-52.0); Hemoglobin 16.5 g/dL (14.1-18.0); Immature Granulocytes % 0.4 %; Mean Corpuscular HGB Conc 32.9 g/dL (31.8-35.4); Mean Corpuscular Hemoglobin 32.3 pg (27.0-31.2); Mean Corpuscular Volume 98.0 fl (80-94); Nucleated Red Blood Cells % 0 %; Platelet Count 176 K/mm3 (142-424); Red Blood Count 5.11 M/mm3 (4.60-6.20); Red Cell Distribution Width-SD 45.3 fL; White Blood Count 7.6 K/mm3 (4.8-10.8)
[2025-04-07 11:09] LABS: Alanine Aminotransferase 18 U/L (12-78); Albumin/Globulin Ratio 1.6 (1.1-1.8); Alkaline Phosphatase 97 U/L (38-126); Anion Gap 9.9 mEq/L (5-15); Aspartate Amino Transferase 30 U/L (17-59); Bilirubin,Total 0.8 mg/dl (0.2-1.3); Blood Urea Nitrogen 13 mg/dl (9-20); Calcium 9.7 mg/dl (8.4-10.2); Carbon Dioxide 31 mmol/L (22.0-30.0); Creatinine Clearance Estimated 78 mL/min (50-200); Creatinine,Serum 0.90 mg/dl (0.66-1.25); Estimated Glomerular Filt Rate 82 ml/min (>60); GFR (African American) 99 ML/MIN (>60); Globulin 2.9 g/dL (1.3-3.2); Glucose 132 mg/dl (74-100); Magnesium 1.9 mg/dl (1.6-2.3); Phosphorous 2.7 mg/dl (2.5-4.5); Total Protein,Serum 7.6 g/dl (6.3-8.2)
--- NOTE | 2025-04-07 11:09 | PC.NURSE ---
PT MEDICATED PER EMAR, HR NOW 78. B/P 98/59. DR JONES NOTIFIED. IVF'S INFUSING
[2025-04-07 11:14] LABS: INR 1.14 (0.9-1.1); Prothrombin Time 12.5 seconds (10.1-12.5)
[2025-04-07 11:19] LABS: NT Pro Brain Natriuretic Pep. 930 pg/mL (0-450)
[2025-04-07 11:25] LABS: Troponin I < 0.01 ng/ml (0.00-0.034)
--- NOTE | 2025-04-07 11:26 | ECG_ITS ---
APPROVED REPORT Exam: Resting ECG HR:71 bpm ECG Measurements Heart Rate 71 AXES OH 219 P 83 QRSd 108 QRS 75 QT 399 T 71 QTc 421 Conclusion SINUS RHYTHM WITH FIRST DEGREE AV BLOCK ABNORMAL ECG UNCONFIRMED REPORT Electronically signed by : Mark Cabrera, 04/07/2025 15:51:25
[2025-04-07 11:35] LABS: Free T4 (Free Thyroxine) 1.36 ng/dl (0.78-2.19)
--- NOTE | 2025-04-07 11:36 | PC.NURSE ---
CARDIOLOGY NOTIFIED OF CONSULT
[2025-04-07 11:40] LABS: Thyroid Stimulating Hormone 2.45 uIU/mL (0.465-4.68)
[2025-04-07 11:49] LABS: D-Dimer 0.61 ug/mL (0.0-0.5)
--- NOTE | 2025-04-07 11:50 | PC.NURSE ---
DR JONES SPE[facility], [facility]
--- NOTE | 2025-04-07 11:55 | PC.NURSE ---
DR JONES SPEAKING WITH HOSPITALIST FOR ADMISSION
--- NOTE | 2025-04-07 11:59 | PC.NURSE ---
BIGHT MAKER NOTIFIED OF ADMISSION
--- NOTE | 2025-04-07 12:01 | PC.NURSE ---
DR JONES AT BEDSIDE TO UPDATE PT ON POC
--- NOTE | 2025-04-07 12:03 | XR_ITS ---
FINAL REPORT CLINICAL HISTORY: Unstable angina, shortness of breath COMPARISON: 02/16/2024 FINDINGS: A single frontal view of the chest was obtained. No acute pulmonary opacity is present. There is no evidence of effusion or pneumothorax. Mediastinum is unremarkable. Heart size is normal. IMPRESSION: No acute abnormality. Reviewed, Interpreted and Dictated by Echo Soler MD Transcribed by Avani Nielson Authenticated and . [facility]
[2025-04-07 12:07] LABS: Hepatitis C Ab Qual. W/ RFX NEGATIVE (Negative)
--- NOTE | 2025-04-07 12:15 | PC.NURSE ---
JENI DOLAN RN GIVEN REPORT AT THIS TIME
--- NOTE | 2025-04-07 12:21 | PC.NURSE ---
patient in room, no concerns at this time.
--- NOTE | 2025-04-07 12:27 | IR_ITS ---
APPROVED REPORT Patient Location: Inpatient PROCEDURES Left heart catheterization Left ventriculogram Selective coronary angiogram Right retrograde femoral angiogram Bare-metal self-expanding stent deployment to the right external iliac artery INDICATION Coronary artery disease, Unstable angina, Iliac artery stenosis Informed consent was obtained prior to the procedure. COMPLICATIONS NONE Estimated Blood Loss: LESS THAN 10 ML TECHNIQUE One percent lidocaine was used to anesthetize the right groin. The right femoral artery was accessed via the Seldinger technique. A 4-Latvian sheath was placed in the right femoral artery. There is difficulty traversing the highly tortuous calcified iliofemoral artery. A J-wire was passed and a 6 [place] sheath was advanced due to the calcification and tortuosity. The 6 Latvian JL 3 and JL 4 guide catheter were used to perform left heart catheterization left ventriculogram and selective coronary angiogram. At the end the procedure the sheath was pulled back and retrograde angiography was performed which demonstrated severe atherosclerotic plaque with dissection at a heavy plaque burden area. Because of this the 8 mm x 40 mm self-expanding bare-metal stent was deployed followed by an additional 8 mm x 40 mm self-expanding stent placed distal to this yet still overlapping. An 8 mm x 20 mm balloon was deployed at 12 justen throughout the stent to post dilate. Excellent angiograph results were obtained. At the end procedure the apparatus was removed the groin is reprepped closure change sheath was removed good hemostasis was achieved using Angio-Seal device patient was transferred to the postop porting in stable condition ANGIOGRAPHIC RESULTS The left main artery Normal The left anterior descending artery Has a long proximal eccentric 40% stenoses with mid vessel 40 to 50% stenosis with is unchanged from previous angiography The circumflex artery Nondominant gives rise to a large first obtuse marginal artery which has stents in the mid segment which have 50 to 60% concentric smooth in-stent restenosis The right coronary artery Right coronary artery is known to be ostially occluded and fills via a rich [id number] collateral system The POP ventriculogram reveals Reduced at 45% The left ventricular end-diastolic pressure 20 mmHg Right common iliac artery is highly tortuous and calcified with 20% stenosis Right internal iliac artery has an ostial eccentric 80% calcified stenosis Right external iliac artery is heavily calcified and has 80 to 90% calcified stenosis IMPRESSION Coronary disease as described above Chronically occluded right coronary which fills via [id number] collaterals Reduced ejection fraction Elevated LVEDP Referral artery disease as described above with successful stenting reducing lesion to 0% with 2 contiguous bare-metal self-expanding stents PLAN 1. Anticoagulation for atrial fibrillation 2. Continue aspirin 3. Medical management for coronary disease 4. LDL less than 55 achieved with high intensity statin 5. Avoidance of tobacco products 6. Risk factor modification Electronically signed by : Alexis Hull MD 04/07/2025 19:06:07
--- NOTE | 2025-04-07 13:35 | EXP.HP ---
History of Present Illness *Admission Date: 04/07/25 *Reason for visit:: Unstable angina *History of present illness: Mr. Hsu is a 79-year-old male who presented to the emergency department today with chest pain, substernal radiating to the left arm since Friday. This is associated with palpitations and occasional shortness of breath. He states his the shortness of breath is worse in the morning when he wakes up and with exertion. He has a primary medical history of coronary artery disease, heart cath with stents, a flutter/A-fib, hypertension, hyperlipidemia, iron deficient anemia, anxiety. He has taken multiple nitros with little relief. He states that his heart rate has gone up to the 150s and feels very irregular. He also maintains that he has been compliant with medication, and had just recently seen Dr. Mckinnon in December. Denies abdominal pain, nausea, vomiting, diarrhea, fever, chills. [facility] Disclaimer: The information contained in this section may have been updated after the patient was seen, as this information can be updated by other users. Medical History (Updated 04/08/25 @ 12:24 by Taryn Blackwood APRN) Peripheral arterial disease Fever Cough Angina pectoris, unstable History of cardioversion HFrEF (heart failure with reduced ejection fraction) On amiodarone therapy Major depressive disorder Atypical angina COPD (chronic obstructive pulmonary disease) Dyspnea Fatigue Daytime somnolence Bilateral carotid artery stenosis Tobacco dependence syndrome Atrial fibrillation with RVR Atrial fibrillation HLD (hyperlipidemia) HTN (hypertension) Abnormal electrocardiography CAD (coronary artery disease) Surgical History History of banding of hemorrhoid History of colonoscopy History of esophagogastroduodenoscopy (EGD) History of cardiac radiofrequency ablation Family History Other Family history of cancer Family history of diabetes mellitus Social History Smoking Status: Current every day smoker tobacco type: cigarettes packs per day: 1 alcohol intake: never substance use type: denies use current occupational status: unemployed and retired Travel in the last 8 weeks?: Inside the [place] household members: none housing: house current occupational exposures/hazards: No Other Medical History Have you received the Flu Vaccine for this season: Yes Have you received the Pneumonia Vaccine: Yes Review of Systems Review of Systems Review of systems:: pertinent systems reviewed and negative unless documented below Constitutional Constitutional: Denies fever(s), Denies weakness and Denies weight loss Eyes Eyes: Denies blurry vision and Denies change in vision ENT Ears, Nose, Mouth, and Throat: Denies disequilibrium and Denies dizziness *Cardiovascular Cardiovascular: Reports chest pain, Reports dyspnea on exertion, Reports leg edema (Occasional), Reports orthopnea, Reports palpitations and Reports radiating jaw, neck or arm pain *Respiratory Respiratory: Denies cough and Reports dyspnea on exertion *Gastrointestinal Gastrointestinal: Denies abdominal pain, Denies change in bowel habits, Denies change in stool character and Denies dyspepsia *Neurologic Neurologic: Denies disequilibrium, Denies dizziness and Denies weakness Endocrine Endocrine: Reports palpitations Meds Home Medications and Allergies Home Medications ?Medication ?Instructions ?Recorded ?Confirmed ?Type albuterol sulfate 90 mcg/actuation 2 puff inhalation Q4HP PRN 08/25/24 04/07/25 History aerosol inhaler Shortness Of Breath atorvastatin 10 mg tablet 10 mg PO HS 08/25/24 04/07/25 History diazepam 5 mg tablet 5 mg PO Q12HP PRN Anxiety 08/25/24 04/07/25 History duloxetine 60 mg capsule,delayed 60 mg PO DAILY 08/25/24 04/07/25 History release empagliflozin 10 mg tablet 10 mg PO DAILY 08/25/24 04/07/25 History (Jardiance) oxycodone-acetaminophen 5 mg-325 1 tab PO Q8HP PRN Pain 08/25/24 04/07/25 History mg tablet pantoprazole 40 mg tablet,delayed 40 mg PO DAILY 08/25/24 04/07/25 History release tamsulosin 0.4 mg capsule 0.4 mg PO HS 08/25/24 04/07/25 History metoprolol succinate 25 mg 25 mg PO DAILY 10/06/24 04/07/25 History tablet,extended release 24 hr lidocaine 5 % topical patch 1 patch topical DAILY #30 ea 11/23/24 04/07/25 Rx ranolazine 1,000 mg 1,000 mg PO BID #180 tabs 11/29/24 04/07/25 Rx tablet,extended release,12 hr aspirin 81 mg tablet,delayed 81 mg PO DAILY #30 tabs 01/04/25 04/07/25 Rx release (Adult Aspirin Regimen) Movantik 12.5 mg tablet (naloxegol) 12.5 mg PO DAILY #30 tabs 03/29/25 04/07/25 Rx simethicone 125 mg chewable tablet 125 mg PO QD-BID PRN Gastric Reflux 03/29/25 04/07/25 History (Gas-X Extra Strength) rshqmt-qhwffrks-qeykyto 1 cap PO TIDWMEAL 04/07/25 04/07/25 History 36,000-114,000-180,000 unit capsule,delay rel (Creon) rivaroxaban 15 mg tablet (Xarelto) 15 mg PO DAILY 04/07/25 04/07/25 History New Prescriptions to Start Prescriptions: Allergies Allergy/AdvReac Type Severity Reaction Status Date / Time Sulfa (Sulfonamide Allergy Unknown Unknown Verified 04/07/25 10:49 Antibiotics) allergy reaction Exam Data for Last 24 hours Vital signs and Labs for Last 24 Hours: Temp Pulse Resp BP Pulse Ox O2 Del Method 98.0 F 66 16 111/68 93 L Room Air 04/07/25 12:17 04/07/25 12:17 04/07/25 12:31 04/07/25 12:31 04/07/25 12:00 04/07/25 12:17 Laboratory Results - last 24 hr 04/07/25 10:40: WBC 7.6, RBC 5.11, Hgb 16.5, Hct 50.1, MCV 98.0 H, MCH 32.3 H, MCHC 32.9, RDW 12.6, Plt Count 176, MPV 9.4, Neut % (Auto) 71.4, Lymph % (Auto) 16.9, Taney % (Auto) 10.3 H, Eos % (Auto) 0.7, Baso % (Auto) 0.3, Neut # (Auto) 5.5, Lymph # (Auto) 1.3, [place] # (Auto) 0.8, Eos # (Auto) 0.1, Baso # (Auto) 0.0, PT 12.5, INR 1.14 H, D-Dimer 0.61 H, Sodium 136, Potassium 3.9, Chloride 99, Carbon Dioxide 31 H, Anion Gap 9.9, BUN 13, Creatinine 0.90, Estimated Creat Clear 78, Estimated GFR 82, Est GFR ( Amer) 99, Glucose 132 H, Calcium 9.7, Phosphorus 2.7, Magnesium 1.9, Total Bilirubin 0.8, AST 30, ALT 18, Alkaline Phosphatase 97, Troponin I < 0.01, NT-Pro-B Natriuret Pep 930 H, Total Protein 7.6, Albumin 4.7, Globulin 2.9, Albumin/Globulin Ratio 1.6, TSH 2.45, Free T4 1.36, HCV Ab DRAKE w/Rflx PCR Qn Negative, HIV Ag/Ab Combo Qual Negative I & O for Last 24 hours: Intake & Output 04/04/25 04/05/25 04/06/25 04/07/25 23:59 23:59 23:59 23:59 Weight 90.718 kg Constitutional Constitutional: no acute distress and cooperative *Routine HEENT Exam Head: Present normocephalic Eye: Present EOMI ENT: Present mucous membranes moist *Routine Neck Exam Neck: Present supple; Absent JVD *Routine Respiratory Exam Respiratory: Present CTA bilaterally, able to speak in complete sentences and symmetric chest movement; Absent wheezes or crackles *Routine Cardiovascular Exam Cardiovascular: Present RRR, Normal S1 and Normal S2; Absent murmur *Routine Abdominal Exam Abdominal: Present soft and normoactive bowel sounds; Absent tenderness *Routine Rectal Exam Rectal:: deferred *Routine Genitalia Exam Genitalia:: deferred *Routine Extremities Exam Extremities: Present pulses intact; Absent clubbing or edema *Routine Skin Exam Skin: Present intact and dry *Routine Neurological Exam Neurological: Present alert, oriented X3 and normal speech Assessment and Plan *Assessment and plan (1) Angina pectoris, unstable: Status: Acute Category: Medical Code(s): I20.0 - Unstable angina (2) Atrial flutter: Status: Acute Category: Medical Code(s): I48.92 - Unspecified atrial flutter (3) CAD (coronary artery disease): Status: Chronic Qualifiers: Associated angina: without angina Coronary Disease-Associated Artery/Lesion type: [place] artery [place] vs. transplanted heart: [place] heart Qualified Code(s): I25.10 - Atherosclerotic heart disease of [place] coronary artery without angina pectoris Category: Medical Code(s): I25.10 - Atherosclerotic heart disease of [place] coronary artery without angina pectoris (4) Iron deficiency anemia: Status: Acute Category: Medical Code(s): D50.9 - Iron deficiency anemia, unspecified (5) GERD (gastroesophageal reflux disease): Status: Acute Category: Medical Code(s): K21.9 - Gastro-esophageal reflux disease without esophagitis (6) Opioid-induced constipation: Status: Acute Category: Medical Code(s): K59.03 - Drug induced constipation; T40.2X5A - Adverse effect of other opioids, initial encounter (7) Bloating: Status: Acute Category: Medical Code(s): R14.0 - Abdominal distension (gaseous) (8) Chronic radicular lumbar pain: Status: Acute Category: Medical Code(s): M54.16 - Radiculopathy, lumbar region; G89.29 - Other chronic pain (9) Anxiety: Status: Acute Category: Medical Code(s): F41.9 - Anxiety disorder, unspecified (10) BPH (benign prostatic hyperplasia): Status: Acute Category: Medical Code(s): N40.0 - Benign prostatic hyperplasia without lower urinary tract symptoms Plan Mr. Hsu is a 79-year-old male who presented to the emergency department with chest pain, substernal radiating to the left arm for several days. He has taken multiple doses of sublingual nitro without relief. ED workup was significant for tachyarrhythmia, appears to be a flutter. Cardizem IV was given and patient converted to normal sinus rhythm. Patient still complained of substernal chest pressure. Patient and on room air. Patient remained normotensive. He has a primary medical history of iron deficient anemia, A-fib/a flutter, congestive heart failure, coronary artery disease, heart cath with stent placement, hypertension, hyperlipidemia, and anxiety. Initial workup in the ED was significant for mildly elevated BNP, 930. TSH was within normal limits 2.45, negative troponin, glucose slightly elevated at 132, sodium 136, potassium 3.9. No leukocytosis, WBC 7.6, no anemia hemoglobin 16.5. Cardiology was consulted and recommendation was made for patient to be admitted to the medical surgical floor for further telemetry monitoring and left heart cath this afternoon. I agreed to admit the patient. Plan of care as follows: #Unstable angina #A-flutter #Coronary artery disease ? Patient admitted to the floor for further telemetry monitoring, patient is now in normal sinus rhythm heart rate 65. Patient does still complain of angina that was unrelieved by sublingual nitro in the ED. ? Plans for patient to go to [facility] this afternoon for LHC. 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 Will resume patient's home meds post cath and per cardiology recommendation. ?Ordered a chest ray to assess for shortness of breath and pneumonia, no abnormalities noted per my review. ?Repeat CBC, CMP, magnesium in the a.m. to assess for kidney function, electrolyte disturbances, leukocytosis. #GERD #Iron deficient anemia ? Patient sees Dr. Navarro, GI, for acid reflux and indigestion. He also has been diagnosed with iron deficient anemia. Patient H&H stable on admission, will continue to monitor. Patient does take pantoprazole 40 mg daily, will continue. #Constipation: Patient also sees Dr. Navarro, GI, for constipation/bloating issues. Patient started on Creon, Gas-X, Movantik. Will continue Creon scheduled, Gas-X as needed. Hold Movantik due to availability at this time. #Chronic pain: Patient takes oxycodone?acetaminophen 1 tab every 8 hours as needed for pain, Will continue as needed. #Anxiety: Patient takes duloxetine 60 mg a day, diazepam 5 mg every 12 hours as needed for anxiety, will continue. #BPH: Patient takes tamsulosin 0.4 mg at bedtime, will continue. Full code Heparinized during cath?VTE Ambulate as tolerated Cardiology consulted N.p.o. diet now, cardiac diet post cath addendum patient is seen and evaluated at bedside, patient admitted for chest pain and will be seen by cardiology
[2025-04-07 15:08] LABS: Troponin I < 0.01 ng/ml (0.00-0.034)
--- NOTE | 2025-04-07 15:21 | EXP.CARD.CON ---
History of Present Illness History of Present Illness Consult date: 04/07/25 Requesting physician: Mark Cabrera Consult reason: chest pain Chief complaint: chest pain History of present illness: This is a 79-year-old white gentleman who presented to the emergency department with complaints of chest pain. He states that he has been having chest pain since Friday. He describes it as a substernal pressure sensation that radiates to his left arm. Is associated with shortness of breath and palpitations. He states that his shortness of breath became significantly worse this morning when he woke up and his symptoms of chest pain and shortness of breath were significantly worsened with exertion. It improves with rest. He states nothing was really helping to improve the pain so he decided to come to the emergency department. He was found to be in atrial flutter 2-1 and was cardioverted in the emergency department back to sinus rhythm. He states that he still has the chest pressure and it has not left. He states that it was severe when he initially came in and this has decreased some since being in the hospital but has not resolved. The patient was subsequently admitted for unstable angina and will undergo a left cardiac catheterization today. He does have a past medical history of coronary artery disease with coronary stenting in 2020. He denies any fever, chills, nausea, vomiting, diarrhea, PND orthopnea. He denies any bilateral lower extremity edema. [facility] Disclaimer: The information contained in this section may have been updated after the patient was seen, as this information can be updated by other users. Medical History (Updated 04/07/25 @ 15:24 by Taryn Blackwood APRN) Angina pectoris, unstable History of cardioversion HFrEF (heart failure with reduced ejection fraction) On amiodarone therapy Major depressive disorder Atypical angina COPD (chronic obstructive pulmonary disease) Dyspnea Fatigue Daytime somnolence Bilateral carotid artery stenosis Tobacco dependence syndrome Atrial fibrillation with RVR Atrial fibrillation HLD (hyperlipidemia) HTN (hypertension) Abnormal electrocardiography CAD (coronary artery disease) Surgical History History of banding of hemorrhoid History of colonoscopy History of esophagogastroduodenoscopy (EGD) History of cardiac radiofrequency ablation Family History Other Family history of cancer Family history of diabetes mellitus Social History Smoking Status: Current every day smoker tobacco type: cigarettes packs per day: 1 alcohol intake: never substance use type: denies use current occupational status: unemployed and retired Travel in the last 8 weeks?: Inside the [place] household members: none housing: house current occupational exposures/hazards: No Have you lived/traveled outside [place] in past 30 days?: No Contact w/someone who lives/traveled outside US past 30 days?: No Exposure to someone with infectious disease in past 14 days?: No Do you have a fever (greater than 100.4 F or 38 C)?: No Have you tested positive for COVID-19?: No Exposed to someone with COVID-19 in past 14 days?: No Do you have a sore throat?: No Do you have a cough?: No Do you have any weakness?: No Do you have any diarrhea?: No Are you experiencing any unusual bleeding?: No Do you have any muscle aches/pain?: No Do you have any abdominal pain?: No Are you experiencing loss of taste or smell?: No Review of Systems Review of Systems Review of systems:: pertinent systems reviewed and negative unless documented below Constitutional Constitutional: Reports system reviewed and no additional complaints, except as documented and Denies weakness Eyes Eyes: Reports system reviewed and no additional complaints, except as documented ENT Ears, Nose, Mouth, and Throat: Reports system reviewed and no additional complaints, except as documented, Denies disequilibrium and Denies dizziness *Cardiovascular Cardiovascular: Reports system reviewed and no additional complaints, except as documented, Reports chest pain, Reports chest pain at rest, Reports chest pain with activity, Reports dyspnea, Reports dyspnea on exertion, Reports palpitations and Reports rapid heart rate *Respiratory Respiratory: Reports system reviewed and no additional complaints, except as documented, Reports dyspnea and Reports dyspnea on exertion *Gastrointestinal Gastrointestinal: Reports system reviewed and no additional complaints, except as documented *Genitourinary Genitourinary: Reports system reviewed and no additional complaints, except as documented *Musculoskeletal Musculoskeletal: Reports system reviewed and no additional complaints, except as documented Integumentary/Breasts Skin/Breast: Reports system reviewed and no additional complaints, except as documented *Neurologic Neurologic: Reports system reviewed and no additional complaints, except as documented, Denies disequilibrium, Denies dizziness and Denies weakness Psychiatric Psychiatric: Reports system reviewed and no additional complaints, except as documented Endocrine Endocrine: Reports system reviewed and no additional complaints, except as documented and Reports palpitations Hematologic/Lymphatic Hematologic/Lymphatic: Reports system reviewed and no additional complaints, except as documented Allergic/Immunologic Allergic/Immunologic: Reports system reviewed and no additional complaints, except as documented Exam Data for Last 24 hours Vital signs and Labs for Last 24 Hours: Temp Pulse Resp BP Pulse Ox O2 Del Method 97.8 F 70 18 111/68 96 Room Air 04/07/25 12:35 04/07/25 12:35 04/07/25 12:35 04/07/25 12:35 04/07/25 12:35 04/07/25 12:35 Laboratory Results - last 24 hr 04/07/25 10:40: WBC 7.6, RBC 5.11, Hgb 16.5, Hct 50.1, MCV 98.0 H, MCH 32.3 H, MCHC 32.9, RDW 12.6, Plt Count 176, MPV 9.4, Neut % (Auto) 71.4, Lymph % (Auto) 16.9, [place] % (Auto) 10.3 H, Eos % (Auto) 0.7, Baso % (Auto) 0.3, Neut # (Auto) 5.5, Lymph # (Auto) 1.3, [place] # (Auto) 0.8, Eos # (Auto) 0.1, Baso # (Auto) 0.0, PT 12.5, INR 1.14 H, D-Dimer 0.61 H, Sodium 136, Potassium 3.9, Chloride 99, Carbon Dioxide 31 H, Anion Gap 9.9, BUN 13, Creatinine 0.90, Estimated Creat Clear 78, Estimated GFR 82, Est GFR ( Amer) 99, Glucose 132 H, Calcium 9.7, Phosphorus 2.7, Magnesium 1.9, Total Bilirubin 0.8, AST 30, ALT 18, Alkaline Phosphatase 97, Troponin I < 0.01, NT-Pro-B Natriuret Pep 930 H, Total Protein 7.6, Albumin 4.7, Globulin 2.9, Albumin/Globulin Ratio 1.6, TSH 2.45, Free T4 1.36, HCV Ab DRAKE w/Rflx PCR Qn Negative, HIV Ag/Ab Combo Qual Negative 04/07/25 14:15: Troponin I < 0.01 I & O for Last 24 hours: Intake & Output 04/04/25 04/05/25 04/06/25 04/07/25 23:59 23:59 23:59 23:59 Weight 197 lb 3 oz Constitutional Constitutional: no acute distress and average body habitus *Routine HEENT Exam Head: Present normocephalic and atraumatic ENT: Present mucous membranes moist *Routine Neck Exam Neck: Present supple, full ROM and normal carotid upstroke; Absent JVD, carotid bruit or lymphadenopathy *Routine Respiratory Exam Respiratory: Present CTA bilaterally, normal respiratory effort, able to speak in complete sentences and symmetric chest movement *Routine Cardiovascular Exam Cardiovascular: Present RRR, Normal S1 and Normal S2; Absent murmur or gallop *Routine Abdominal Exam Abdominal: Present soft and normoactive bowel sounds; Absent tenderness, distended or organomegaly *Routine Extremities Exam Extremities: Present full ROM, pulses intact and normal capillary refill; Absent cyanosis, clubbing or edema *Routine Skin Exam Skin: Present intact and warm; Absent erythema *Routine Neurological Exam Neurological: Present alert, oriented X3 and CN II-XII intact; Absent sensory deficit or motor deficit Routine Psychiatric Exam Psychiatric: Present normal affect Meds Home Medications and Allergies Home Medications ?Medication ?Instructions ?Recorded ?Confirmed ?Type albuterol sulfate 90 mcg/actuation 2 puff inhalation Q4HP PRN 08/25/24 04/07/25 History aerosol inhaler Shortness Of Breath atorvastatin 10 mg tablet 10 mg PO HS 08/25/24 04/07/25 History diazepam 5 mg tablet 5 mg PO Q12HP PRN Anxiety 08/25/24 04/07/25 History duloxetine 60 mg capsule,delayed 60 mg PO DAILY 08/25/24 04/07/25 History release empagliflozin 10 mg tablet 10 mg PO DAILY 08/25/24 04/07/25 History (Jardiance) oxycodone-acetaminophen 5 mg-325 1 tab PO Q8HP PRN Pain 08/25/24 04/07/25 History mg tablet pantoprazole 40 mg tablet,delayed 40 mg PO DAILY 08/25/24 04/07/25 History release tamsulosin 0.4 mg capsule 0.4 mg PO HS 08/25/24 04/07/25 History metoprolol succinate 25 mg 25 mg PO DAILY 10/06/24 04/07/25 History tablet,extended release 24 hr lidocaine 5 % topical patch 1 patch topical DAILY #30 ea 11/23/24 04/07/25 Rx ranolazine 1,000 mg 1,000 mg PO BID #180 tabs 11/29/24 04/07/25 Rx tablet,extended release,12 hr aspirin 81 mg tablet,delayed 81 mg PO DAILY #30 tabs 01/04/25 04/07/25 Rx release (Adult Aspirin Regimen) Movantik 12.5 mg tablet (naloxegol) 12.5 mg PO DAILY #30 tabs 03/29/25 04/07/25 Rx simethicone 125 mg chewable tablet 125 mg PO QD-BID PRN Gastric Reflux 03/29/25 04/07/25 History (Gas-X Extra Strength) [id number] 1 cap PO TIDWMEAL 04/07/25 04/07/25 History 36,000-114,000-180,000 unit capsule,delay rel (Creon) rivaroxaban 15 mg tablet (Xarelto) 15 mg PO DAILY 04/07/25 04/07/25 History New Prescriptions to Start Prescriptions: Allergies Allergy/AdvReac Type Severity Reaction Status Date / Time Sulfa (Sulfonamide Allergy Unknown Unknown Verified 04/07/25 10:49 Antibiotics) allergy reaction Assessment and Plan *Assessment and plan (1) Angina pectoris, unstable: Status: Acute Category: Medical Code(s): I20.0 - Unstable angina (2) Atrial flutter: Status: Acute Qualifiers: Atrial flutter type: typical Qualified Code(s): I48.3 - Typical atrial flutter Category: Medical Code(s): I48.92 - Unspecified atrial flutter (3) CAD (coronary artery disease): Status: Chronic Qualifiers: Coronary Disease-Associated Artery/Lesion type: [place] artery [place] vs. transplanted heart: [place] heart Associated angina: without angina Qualified Code(s): I25.10 - Atherosclerotic heart disease of [place] coronary artery without angina pectoris Category: Medical Code(s): I25.10 - Atherosclerotic heart disease of [place] coronary artery without angina pectoris (4) HTN (hypertension): Status: Chronic Qualifiers: Hypertension type: primary hypertension Qualified Code(s): I10 - Essential (primary) hypertension Category: Medical Code(s): I10 - Essential (primary) hypertension (5) HLD (hyperlipidemia): Status: Chronic Qualifiers: Hyperlipidemia type: mixed hyperlipidemia Qualified Code(s): E78.2 - Mixed hyperlipidemia Category: Medical Code(s): E78.5 - Hyperlipidemia, unspecified (6) Atrial fibrillation: Status: Chronic Qualifiers: Atrial fibrillation type: longstanding persistent Qualified Code(s): I48.11 - Longstanding persistent atrial fibrillation Category: Medical Code(s): I48.91 - Unspecified atrial fibrillation (7) Tobacco dependence syndrome: Status: Chronic Category: Medical Code(s): F17.200 - Nicotine dependence, unspecified, uncomplicated Plan Plan: 1. The patient presented to the emergency department with chest pain. He was initially found to be in atrial flutter, 2-1. He is status post cardioversion and in sinus rhythm. He takes metoprolol for rate control. Will continue his metoprolol at this time. 2. The patient is having unstable angina. He has known coronary artery disease with a history of coronary stenting in 2020. Due to his unstable angina we will plan to proceed with left cardiac catheterization at this time to evaluate for coronary artery disease. 3. The patient has been checking the risks and benefits of proceeding with left cardiac catheterization. The patient verbalizes understanding and is agreeable in proceeding with the procedure. 4. The patient will be n.p.o. in preparation for left cardiac catheterization. 5. Will obtain an echocardiogram to evaluate his LV function due to his unstable angina and shortness of breath. 6. Continue Xarelto for long-term anticoagulation secondary to his paroxysmal atrial fibrillation and atrial flutter. 7. His blood pressure is well-controlled. 8. His LDL goal is less than 55. He is on a statin. Will get a lipid panel in the morning. 9. Continue aspirin 81 mg daily. 10. Further recommendations will be made pending the patient's response to treatment and the results of his left cardiac catheterization and echocardiogram today. Thank you for the opportunity to help participate in the care of this patient. All recommendations and orders are per Dr. Sterling.
--- NOTE | 2025-04-07 15:30 | CA_ITS ---
APPROVED REPORT EXAM: Comprehensive 2D, Doppler, and color-flow Echocardiogram C D Reactor Operator: Sabrina Pimentel RVT Ht: 5 ft 10 in Wt: 197lbs BSA: 2.07 BP: 111/68 mmHg Indications: CHEST PAIN 2D Dimensions LA Volume 57.50 mL LA Volume Index 27.64 mL/m2 (M/F) 16-34 EF AP4 57.70 % GL Strain -19.3 % M-Mode Dimensions RVDd 2.85 cm (0.9-2.6) LA Diam 3.69 cm (1.9-4.0) LVDd 4.09 cm (3.5-5.7) LVDs 2.94 cm (3.5-5.7) IVSd 1.42 cm (0.6-1.1) PWd 0.89 cm (0.6-1.1) EF (Teich) 54.90% FS 28.10% EDV (Teich) 73.80 mL TAPSE 2.66 (<1.7) ESV (Teich) 33.30 mL LV Diastology E Decel Time 193 (160-240 msec) E/A Ratio 0.9 Aortic Valve DANNY Index 2.09 cm2/m2 AoV Peak Vladimir. 90.0 (50-130 cm/s) AO Peak GR. 3.30 mmHg AO Mean GR. 2.00 (<5 mmHg) AO VTI 18.2 (18-25 cm) DANNY (VTI) 4.43 (2.5-4.5 cm2) Mitral Valve MV E Max Vladimir. 59.0 (40-130 cm/s) MV A Velocity 68.0 (40-130 cm/s) E/A Ratio 0.87 MV PHT 57.0 ms Pulmonary Valve PV Peak Velocity 73.0 (50-150 cm/s) Tricuspid Valve TR P. Velocity 217.00 cm/s RAP Estimate 10.00 mmHg RVSP 28.80 mmHg Left Ventricle The left ventricle is normal size. Left ventricular systolic function is low normal. There is increased LV wall thickness. The septum is asynchronous. Diastolic function is indeterminate. LVEF is 50%. Right Ventricle The right ventricle is normal size. The right ventricular systolic function is normal. Atria Left atrium is mildly dilated. Right atrium is mildly dilated. There is no Doppler evidence of interatrial shunt. Aortic Valve The aortic valve is mildly thickened. There is no aortic valvular stenosis. No aortic regurgitation is present. Mitral Valve The mitral valve is normal in structure. No evidence of mitral valve stenosis. Trace mitral regurgitation. Tricuspid Valve Tricuspid valve is grossly normal in structure and function. Mild tricuspid regurgitation. RVSP is 20-25 mmHg. Pulmonic Valve The pulmonary valve is normal in structure. Great Vessels The aortic root is normal in size. IVC is normal in size and collapses >50% with inspiration. Pericardium There is no pericardial effusion. Other Information Study Quality: Technically Difficult Conclusion Technically difficult study. Low-normal LV systolic function (LVEF 50%). Mild biatrial dilation. Mild TR. Electronically signed by : Pratibha Sterling MD 04/08/2025 12:25:43
[2025-04-07] MEDS: 0.9 % SODIUM CHLORIDE 500 ML 25 ML IV (18:05)
[2025-04-07] MEDS: HEPARIN 1,000 UNITS/500ML NS (CATH LAB) 3000 UNIT IV (18:05)
[2025-04-07] MEDS: NITROGLYCERIN 800MCG/8ML SYR (CATH LAB) 800 MCG IA (18:05)
[2025-04-07] MEDS: HEPARIN 1,000 UNITS/ML 10ML VIAL (CATH LAB) 5000 UNIT IV (18:05)
[2025-04-07] MEDS: LIDOCAINE 1% 10ML MDV 10 ML IJ (18:05)
[2025-04-07] MEDS: VERAPAMIL 2.5MG/ML 2ML VIAL 2.5 MG IV (18:06)
[2025-04-07] MEDS: MIDAZOLAM HCL 1MG/ML 5ML VIAL 1 MG IV (18:07)
[2025-04-07] MEDS: FENTANYL 100MCG/2ML VIAL 50 MCG IV (18:07)
[2025-04-07 18:13] LABS: Troponin I < 0.01 ng/ml (0.00-0.034)
[2025-04-07 19:17] LABS: CATHL Activated Clotting Time > 400 SEC (74-125)
[2025-04-07] MEDS: IOPAMIDOL-370 (76%);100ML BOTTLE 110 ML IV (19:24)
[2025-04-07] MEDS: SIMETHICONE 80MG CHEWABLE TABLET 80 MG PO (21:01)
[2025-04-07] MEDS: TAMSULOSIN 0.4MG CAPSULE 0.4 MG PO (21:24)
[2025-04-07] MEDS: RANOLAZINE 500MG ER TABLET 1000 MG PO (21:24)
[2025-04-07] MEDS: ATORVASTATIN 10MG TABLET 10 MG PO (21:33)
[2025-04-08] VITALS (10 sets, daily range): BP systolic 115–181; BP diastolic 52–104; PULSE 70–120; RESP 14–22; TEMP 36.6–38.2; O2SAT 91–97; BMI 26.2
--- NOTE | 2025-04-08 00:07 | PC.NURSE ---
Patient walked to bathroom to void, is back in bed now [id number]
--- NOTE | 2025-04-08 02:55 | PC.NURSE ---
Pt has had elevated BP since returning to clinical lab specialist. MD was notified of elevated blood pressure. MD did not provide any new orders and only wanted to monitor the BP.
--- NOTE | 2025-04-08 04:09 | PC.NURSE ---
Pt is A&O x4. Pt remained on RA for majority of shift, however pt placed on 2LNC while sleeping due to desat to upper 80's. Pt has been self converting in and out of afib on telemetry. Pt has been hypertensive, since beginning of shift aware. Pt's right radial and femoral cath site dressings CDI. Pt received 2 stents to right iliac artery. Pt has not voiced any concerns. Pt resting w/ call light in reach. POC on going.
--- NOTE | 2025-04-08 04:20 | PC.NURSE ---
Blue linen bags were taken out, ice was filled, and bedside table was reorganized and wiped at this time. [id number]
[2025-04-08 05:44] LABS: Alanine Aminotransferase 12 U/L (12-78); Albumin Level 3.3 g/dl (3.5-5.0); Albumin/Globulin Ratio 1.2 (1.1-1.8); Alkaline Phosphatase 91 U/L (38-126); Anion Gap 9.2 mEq/L (5-15); Aspartate Amino Transferase 22 U/L (17-59); Bilirubin,Total 0.6 mg/dl (0.2-1.3); Blood Urea Nitrogen 11 mg/dl (9-20); Calcium 8.9 mg/dl (8.4-10.2); Carbon Dioxide 29 mmol/L (22.0-30.0); Chloride 105 mmol/L (98-107); Creatinine Clearance Estimated 73 mL/min (50-200); Creatinine,Serum 0.90 mg/dl (0.66-1.25); Estimated Glomerular Filt Rate 82 ml/min (>60); GFR (African American) 99 ML/MIN (>60); Globulin 2.7 g/dL (1.3-3.2); Glucose 80 mg/dl (74-100); Magnesium 2.0 mg/dl (1.6-2.3); Potassium 4.2 mmoL/L (3.5-5.1); Sodium 139 mmol/L (136-145); Total Protein,Serum 6.0 g/dl (6.3-8.2)
[2025-04-08 05:46] LABS: Hematocrit 44.7 % (42.0-52.0); Immature Granulocytes % 0.2 %; Mean Corpuscular HGB Conc 32.7 g/dL (31.8-35.4); Mean Corpuscular Hemoglobin 31.8 pg (27.0-31.2); Mean Corpuscular Volume 97.4 fl (80-94); Nucleated Red Blood Cells % 0 %; Platelet Count 143 K/mm3 (142-424); Red Blood Count 4.59 M/mm3 (4.60-6.20); Red Cell Distribution Width-SD 45.4 fL; White Blood Count 4.9 K/mm3 (4.8-10.8)
[2025-04-08 05:50] LABS: Cholesterol 115 mg/dl (140-200); HDL Cholesterol 47 mg/dl (40-60); Triglycerides 101 mg/dl (30-150)
[2025-04-08 05:54] LABS: Hemoglobin 14.7 g/dL (14.1-18.0)
--- NOTE | 2025-04-08 06:36 | PC.NURSE ---
Trash taken out at 1472
[2025-04-08] MEDS: CLOPIDOGREL 75MG TAB 75 MG PO (08:46)
[2025-04-08] MEDS: ASPIRIN EC 81MG TABLET 81 MG PO (08:47)
[2025-04-08] MEDS: LIPASE/PROTEASE/AMYLASE 1 EACH CAPSULE.DR PO ×3 (08:47→17:14)
[2025-04-08] MEDS: PANTOPRAZOLE 40MG TABLET 40 MG PO (08:48)
[2025-04-08] MEDS: RANOLAZINE 500MG ER TABLET 1000 MG PO ×2 (08:48→20:01)
[2025-04-08] MEDS: EMPAGLIFLOZIN 10MG TABLET 10 MG PO (08:48)
[2025-04-08] MEDS: METOPROLOL SUCCINATE XL 25MG TABLET 25 MG PO (08:48)
--- NOTE | 2025-04-08 09:29 | XR_ITS ---
FINAL REPORT CLINICAL HISTORY: Shortness of breath, cough COMPARISON: 04/07/2025 FINDINGS: CHEST 1 VIEW No acute pulmonary opacity is present. There is no evidence of effusion or pneumothorax. Mediastinum is unremarkable. Heart size is normal. IMPRESSION: No acute abnormality. Reviewed, Interpreted and Dictated by Echo Soler MD Transcribed by Negra Chaudhary Authenticated and [facility]
[2025-04-08] MEDS: METOPROLOL TARTRATE 5MG/5ML VIAL 5 MG IV (10:29)
--- NOTE | 2025-04-08 10:30 | CT_ITS ---
FINAL REPORT TECHNIQUE: Thin section axial CT with contrast with multiplanar reconstruction This study was performed with techniques to keep radiation doses as low as reasonably achievable, (ALARA). Individualized dose reduction techniques using automated exposure control or adjustment of mA and/or kV according to the patient''s size were employed. CLINICAL HISTORY: Shortness of breath COMPARISON: 05/28/2023 FINDINGS: Pulmonary vessels enhance in normal fashion without evidence of embolism. Thoracic aorta shows no dissection or aneurysm. There is no evidence of pneumonia. There is chronic bronchial wall thickening compatible with bronchitis. There is no significant pleural effusion. There is no significant pericardial effusion. There is mild right infrahilar adenopathy, likely reactive. IMPRESSION: No evidence of pulmonary embolism. No evidence of pneumonia. Reviewed, Interpreted and Dictated by Echo Soler MD Transcribed by Marilia Wilkerson Authenticated and [facility]
[2025-04-08] MEDS: IOPAMIDOL-370 (76%);100ML BOTTLE 85 ML IV (11:28)
[2025-04-08] MEDS: 0.9 % SODIUM CHLORIDE 50 ML VIAL IV (11:28)
[2025-04-08] MEDS: FUROSEMIDE 40 MG TABLET PO (11:57)
[2025-04-08] MEDS: LACTATED RINGERS 1000ML 1,000 ML 125 ML IV ×2 (11:57→22:27)
--- NOTE | 2025-04-08 12:17 | P.PN_ITS ---
Subjective Subjective Date: 04/08/25 Time: 11:00 Principal diagnosis: angina, SOB Interval history: This is a 79-year-old gentleman who was admitted to the hospital with concerns of unstable angina. He underwent left cardiac catheterization yesterday and was found to have patent coronary artery disease. This morning he denies chest pain or pressure but states that he is still short of breath. He is short of breath with exertion and has a cough. He states that he is coughing up sputum that is kind of a white-tannish color. He states that he just does not feel well. He does appear flushed and did have a fever this morning at 100.3. He denies any chills, nausea, vomiting, diarrhea, PND or orthopnea. He denies any lower extremity edema. Exam Data for Last 24 hours Vital signs and Labs for Last 24 Hours: Temp Pulse Resp BP Pulse Ox O2 Del Method O2 Flow Rate 100.3 F H 96 H 20 175/87 H 93 L Nasal Cannula 2 04/08/25 08:00 04/08/25 08:00 04/08/25 08:00 04/08/25 08:00 04/08/25 08:00 04/08/25 11:00 04/08/25 11:00 Laboratory Results - last 24 hr 04/07/25 14:15: Troponin I < 0.01 04/07/25 17:10: Troponin I < 0.01 04/07/25 18:39: Activated Clotting Time > 400 H* 04/08/25 05:04: WBC 4.9 D, RBC 4.59 L, Hgb 14.7 D, Hct 44.7, MCV 97.4 H, MCH 31.8 H, MCHC 32.7, RDW 12.7, Plt Count 143, MPV 9.5, Neut % (Auto) 73.3, Lymph % (Auto) 15.9, [place] % (Auto) 9.2, Eos % (Auto) 1.2, Baso % (Auto) 0.2, Neut # (Auto) 3.6, Lymph # (Auto) 0.8, [place] # (Auto) 0.5, Eos # (Auto) 0.1, Baso # (Auto) 0.0, Sodium 139, Potassium 4.2, Chloride 105, Carbon Dioxide 29, Anion Gap 9.2, BUN 11, Creatinine 0.90, Estimated Creat Clear 73, Estimated GFR 82, Est GFR ( Amer) 99, Glucose 80 D, Calcium 8.9, Magnesium 2.0, Total Bilirubin 0.6, AST 22 D, ALT 12 D, Alkaline Phosphatase 91, Total Protein 6.0 L, Albumin 3.3 L D, Globulin 2.7, Albumin/Globulin Ratio 1.2, Triglycerides 101, Cholesterol 115 L, LDL Cholesterol Direct 40.67 L, VLDL Cholesterol 20, HDL Cholesterol 47, Cholesterol/HDL Ratio 2.4 I & O for Last 24 hours: Intake & Output 04/05/25 04/06/25 04/07/25 04/08/25 23:59 23:59 23:59 23:59 Intake Total 360 / 360 Output Total 850 / 850 Balance 360 / 10 -850 / -850 Weight 197 lb 3 oz 187 lb Constitutional Constitutional: no acute distress and average body habitus *Routine HEENT Exam Head: Present normocephalic and atraumatic ENT: Present mucous membranes moist *Routine Neck Exam Neck: Present supple, full ROM and normal carotid upstroke; Absent JVD, carotid bruit or lymphadenopathy *Routine Respiratory Exam Respiratory: Present rhonchi, wheezes, normal respiratory effort, able to speak in complete sentences and symmetric chest movement *Routine Cardiovascular Exam Cardiovascular: Present RRR, Normal S1 and Normal S2; Absent murmur or gallop *Routine Abdominal Exam Abdominal: Present soft and normoactive bowel sounds; Absent tenderness, distended or organomegaly *Routine Extremities Exam Extremities: Present full ROM, pulses intact and normal capillary refill; Absent cyanosis, clubbing or edema *Routine Skin Exam Skin: Present intact and warm; Absent erythema *Routine Neurological Exam Neurological: Present alert, oriented X3 and CN II-XII intact; Absent sensory deficit or motor deficit Routine Psychiatric Exam Psychiatric: Present normal affect Progress Note: A&P Assessment and plan (1) Atrial flutter: Status: Acute (2) CAD (coronary artery disease): Status: Chronic (3) HTN (hypertension): Status: Chronic (4) HLD (hyperlipidemia): Status: Chronic (5) Atrial fibrillation: Status: Chronic (6) Tobacco dependence syndrome: Status: Chronic (7) SOB (shortness of breath): Status: Acute (8) Cough: Status: Acute (9) Fever: Status: Acute (10) Peripheral arterial disease: Status: Acute Assessment and Plan Assessment and Plan for All Diagnoses:: Plan: 1. The patient presented to the emergency department with chest pain. He was initially found to be in atrial flutter, 2-1. He is status post cardioversion and in sinus rhythm. He remains in sinus rhythm today but is tachycardic with a rate around the 120 bpm. Will increase his Toprol-XL to 50 mg p.o. daily. 2. The patient underwent left cardiac catheterization yesterday and was found to have patent coronary artery disease 3. The patient was found to have severe PAD and had stenting to his right external iliac artery. He will be on Plavix and aspirin for dual antiplatelet therapy 4. Echocardiogram shows EF is 50% with no significant valve disease. 5. Continue Xarelto for long-term anticoagulation secondary to his paroxysmal atrial fibrillation and atrial flutter. 6. The patient will be on triple therapy with aspirin, Plavix and Xarelto for 30 days. After 30 days he can stop aspirin and remain on Plavix and Xarelto. 7. His blood pressure is well-controlled. 8. His LDL goal is less than 55. He is on a statin. His LDL is 40. 9. The patient continues to have shortness of breath and a cough. His BNP was slightly elevated on admission. Will give him Lasix 40 mg IV x 1 dose to see if this will improve his symptoms. 10. Consider CTA of the chest to rule out pneumonia. 11. Further recommendations will be made pending the patient's response to treatment. Thank you for the opportunity to help participate in the care of this patient. All recommendations and orders are per Dr. Sterling.
--- NOTE | 2025-04-08 12:45 | EXP.ACUTE.PN ---
Subjective *Date: 04/09/25 *Time: 17:59 Interval history: Patient lying in the bed, complains of shortness of breath and cough. He had a LHC yesterday and received 2 stents. Denies chest pain. Chest x-ray negative for pneumonia/effusions. Chest CTA ordered, sputum sample ordered Medical Exam Vital signs and Labs for Last 24 Hours: Vital Signs Temp Pulse Pulse Pulse Resp BP Pulse Ox 04/08/25 11:00 04/08/25 08:59 04/08/25 08:00 90 04/08/25 08:00 100.3 F H 96 H 20 175/87 H 93 L 04/08/25 08:00 04/08/25 06:45 04/08/25 05:00 04/08/25 04:00 120 H 04/08/25 04:00 98.3 F 71 15 132/71 97 04/08/25 03:00 04/08/25 02:00 79 14 181/104 H 95 04/08/25 01:00 97.9 F 81 14 154/80 H 92 L 04/08/25 01:00 04/08/25 00:12 71 16 168/88 H 93 L 04/08/25 00:00 70 04/08/25 00:00 74 18 129/65 93 L 04/07/25 23:00 75 18 196/101 H 93 L 04/07/25 23:00 04/07/25 22:00 74 16 202/98 H 94 L 04/07/25 21:30 67 22 174/86 H 95 04/07/25 21:00 91 H 20 191/170 H 80 L 04/07/25 21:00 04/07/25 20:30 90 18 182/104 H 90 L 04/07/25 20:00 50 L 04/07/25 20:00 53 L 16 184/75 H 92 L 04/07/25 20:00 04/07/25 19:45 56 L 18 175/91 H 92 L 04/07/25 19:17 72 20 185/68 H 98 04/07/25 19:15 97.6 F 73 14 154/83 H 92 L 04/07/25 19:10 70 70 20 162/82 H 99 04/07/25 16:00 70 04/07/25 16:00 97.7 F 68 16 126/71 96 04/07/25 15:53 97.7 F 68 16 126/71 96 04/07/25 15:00 04/07/25 13:00 O2 Del Method O2 Flow Rate 04/08/25 11:00 Nasal Cannula 2 04/08/25 08:59 Room Air 04/08/25 08:00 04/08/25 08:00 Room Air 04/08/25 08:00 Room Air 04/08/25 06:45 Nasal Cannula 2 04/08/25 05:00 Nasal Cannula 2 04/08/25 04:00 04/08/25 04:00 Nasal Cannula 2 04/08/25 03:00 Nasal Cannula 2 04/08/25 02:00 Room Air 04/08/25 01:00 Room Air 04/08/25 01:00 Room Air 04/08/25 00:12 Room Air 04/08/25 00:00 04/08/25 00:00 Room Air 04/07/25 23:00 Room Air 04/07/25 23:00 Room Air 04/07/25 22:00 Room Air 04/07/25 21:30 Room Air 04/07/25 21:00 Room Air 04/07/25 21:00 Room Air 04/07/25 20:30 Room Air 04/07/25 20:00 04/07/25 20:00 Room Air 04/07/25 20:00 Room Air 04/07/25 19:45 Room Air 04/07/25 19:17 Room Air 04/07/25 19:15 Room Air 04/07/25 19:10 Room Air 04/07/25 16:00 04/07/25 16:00 Room Air 04/07/25 15:53 Room Air 04/07/25 15:00 Room Air 04/07/25 13:00 Room Air Intake and Output 04/07/25 04/08/25 04/08/25 23:59 07:59 15:59 Intake Total 360 / 360 Output Total 850 / 850 0 / 850 Balance 360 / 10 -850 / -850 0 / -850 Intake: Intake, Oral Amount 360 / 360 Output: Output, Urine Amount 850 / 850 0 / 850 Other: Number of Unmeasured Voids 1 1 Weight 84.822 kg Patient Weight 04/08/25 23:59 Weight 84.822 kg Laboratory Results - last 24 hr 04/07/25 14:15: Troponin I < 0.01 04/07/25 17:10: Troponin I < 0.01 04/07/25 18:39: Activated Clotting Time > 400 H* 04/08/25 05:04: WBC 4.9 D, RBC 4.59 L, Hgb 14.7 D, Hct 44.7, MCV 97.4 H, MCH 31.8 H, MCHC 32.7, RDW 12.7, Plt Count 143, MPV 9.5, Neut % (Auto) 73.3, Lymph % (Auto) 15.9, [place] % (Auto) 9.2, Eos % (Auto) 1.2, Baso % (Auto) 0.2, Neut # (Auto) 3.6, Lymph # (Auto) 0.8, [place] # (Auto) 0.5, Eos # (Auto) 0.1, Baso # (Auto) 0.0, Sodium 139, Potassium 4.2, Chloride 105, Carbon Dioxide 29, Anion Gap 9.2, BUN 11, Creatinine 0.90, Estimated Creat Clear 73, Estimated GFR 82, Est GFR ( Amer) 99, Glucose 80 D, Calcium 8.9, Magnesium 2.0, Total Bilirubin 0.6, AST 22 D, ALT 12 D, Alkaline Phosphatase 91, Total Protein 6.0 L, Albumin 3.3 L D, Globulin 2.7, Albumin/Globulin Ratio 1.2, Triglycerides 101, Cholesterol 115 L, LDL Cholesterol Direct 40.67 L, VLDL Cholesterol 20, HDL Cholesterol 47, Cholesterol/HDL Ratio 2.4 I & O for Labs for Last 24 Hours: Intake & Output 04/05/25 04/06/25 04/07/25 04/08/25 23:59 23:59 23:59 23:59 Intake Total 360 / 360 Output Total 850 / 850 Balance 360 / 10 -850 / -850 Weight 89.443 kg 84.822 kg Constitutional: Present no acute distress and cooperative Head: Present atraumatic Eyes: Present as per HPI ENT: Present normal exam Neck: Present normal inspection Respiratory: Present rhonchi (Right lower lobe), able to speak in complete sentences and symmetric chest movement Cardiac: Present Regular Rhythm and Tachycardia GI: Present soft and normal bowel sounds; Absent distention or tenderness Rectal (male): Present deferred (male): Present deferred Extremities: Present normal inspection; Absent edema Skin: Present intact and dry Neuro: Present alert, awake, oriented x 3 and moves all extremities Assessment and Plan *Assessment and plan (1) Angina pectoris, unstable: Status: Acute Category: Medical Code(s): I20.0 - Unstable angina (2) Atrial flutter: Status: Acute Qualifiers: Atrial flutter type: typical Qualified Code(s): I48.3 - Typical atrial flutter Category: Medical Code(s): I48.92 - Unspecified atrial flutter (3) CAD (coronary artery disease): Status: Chronic Qualifiers: Associated angina: without angina Coronary Disease-Associated Artery/Lesion type: [place] artery [place] vs. transplanted heart: [place] heart Qualified Code(s): I25.10 - Atherosclerotic heart disease of [place] coronary artery without angina pectoris Category: Medical Code(s): I25.10 - Atherosclerotic heart disease of [place] coronary artery without angina pectoris (4) Iron deficiency anemia: Status: Acute Category: Medical Code(s): D50.9 - Iron deficiency anemia, unspecified (5) GERD (gastroesophageal reflux disease): Status: Acute Category: Medical Code(s): K21.9 - Gastro-esophageal reflux disease without esophagitis (6) Opioid-induced constipation: Status: Acute Category: Medical Code(s): K59.03 - Drug induced constipation; T40.2X5A - Adverse effect of other opioids, initial encounter (7) Bloating: Status: Acute Category: Medical Code(s): R14.0 - Abdominal distension (gaseous) (8) Chronic radicular lumbar pain: Status: Acute Category: Medical Code(s): M54.16 - Radiculopathy, lumbar region; G89.29 - Other chronic pain (9) Anxiety: Status: Acute Category: Medical Code(s): F41.9 - Anxiety disorder, unspecified (10) BPH (benign prostatic hyperplasia): Status: Acute Category: Medical Code(s): N40.0 - Benign prostatic hyperplasia without lower urinary tract symptoms Plan Mr. Hsu is a 79-year-old male who presented to the emergency department with chest pain, substernal radiating to the left arm for several days. He has taken multiple doses of sublingual nitro without relief. ED workup was significant for tachyarrhythmia, appears to be a flutter. Cardizem IV was given and patient converted to normal sinus rhythm. Patient still complained of substernal chest pressure. Patient and on room air. Patient remained normotensive. He has a primary medical history of iron deficient anemia, A-fib/a flutter, congestive heart failure, coronary artery disease, heart cath with stent placement, hypertension, hyperlipidemia, and anxiety. Initial workup in the ED was significant for mildly elevated BNP, 930. TSH was within normal limits 2.45, negative troponin, glucose slightly elevated at 132, sodium 136, potassium 3.9. No leukocytosis, WBC 7.6, no anemia hemoglobin 16.5. Cardiology was consulted and recommendation was made for patient to be admitted to the medical surgical floor for further telemetry monitoring and left heart cath this afternoon. I agreed to admit the patient. Plan of care as follows: #Unstable angina #A-flutter #Coronary artery disease ? Patient admitted to the floor for further telemetry monitoring, patient is now in normal sinus rhythm heart rate 65. Patient does still complain of angina that was unrelieved by sublingual nitro in the ED. ? Patient had heart cath yesterday afternoon, received 2 stents. 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 Continue home medications. ? Chest x-ray to assess for shortness of breath and pneumonia yesterday, no abnormalities noted per my review. Repeat chest x-ray this morning due to continued shortness of breath, and cough. Unremarkable. ? Chest CTA pending. Sputum culture ordered. Patient did have axillary temperature 100.3, per nursing retook orally 99.1. Will continue to monitor. ?Repeat CBC, CMP, magnesium in the a.m. to assess for kidney function, electrolyte disturbances, leukocytosis. ?Patient has been tachycardic, heart rate in the 120s. Sinus rhythm, patient given morning dose metoprolol 25 mg. Heart rate still high, one-time dose metoprolol 5 mg given IV. Increase metoprolol to 50 mg daily. #GERD #Iron deficient anemia ? Patient sees Dr. Navarro, GI, for acid reflux and indigestion. He also has been diagnosed with iron deficient anemia. Patient H&H stable on admission, will continue to monitor. Patient does take pantoprazole 40 mg daily, will continue. #Constipation: Patient also sees Dr. Navarro, GI, for constipation/bloating issues. Patient started on Creon, Gas-X, Movantik. Will continue Creon scheduled, Gas-X as needed. Hold Movantik due to availability at this time. #Chronic pain: Patient takes oxycodone?acetaminophen 1 tab every 8 hours as needed for pain, Will continue as needed. #Anxiety: Patient takes duloxetine 60 mg a day, diazepam 5 mg every 12 hours as needed for anxiety, will continue. #BPH: Patient takes tamsulosin 0.4 mg at bedtime, will continue. Full code Heparinized during cath?VTE Ambulate as tolerated Cardiology consulted N.p.o. diet now, cardiac diet post cath addendum. Agree with NURSING ADMINISTRATOR note as documented
[2025-04-08 13:38] LABS: Adenovirus,PCR Not Detected (NotDetected); Chlamydophila Pneumoniae, PCR Not Detected (NotDetected); Coronavirus 19, PCR Not Detected (NotDetected); Coronovirus HKU1,PCR Not Detected (NotDetected); Influenza A, PCR Not Detected (NotDetected); Influenza AH1, 2009 Not Detected (NotDetected); Influenza AH1, PCR Not Detected (NotDetected); Influenza AH3,PCR Not Detected (NotDetected); Influenza B, PCR Not Detected (NotDetected); Mycoplasma Pneumoniae, PCR Not Detected (NotDetected); Parainfluenza 1, PCR Not Detected (NotDetected); Parainfluenza 2, PCR Not Detected (NotDetected); Parainfluenza 4, PCR Not Detected (NotDetected)
[2025-04-08] MEDS: ACETAMINOPHEN 325MG TAB 650 MG PO (13:50)
[2025-04-08] MEDS: AZITHROMYCIN 500 MG in 0.9 % SODIUM CHLORIDE 250 ML 250 MG IV (14:35)
--- OUTSIDE RECORDS SUMMARY | 2025-04-08 15:58 | XMS_ITS | Clinical Summary ---
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 (SNOMED CT) 05/08 Active 05/08 Lio Corcoran MD Abnormal grief reaction Hx of cardiac arrhythmias 683422868 (SNOMED CT) 05/08 Active 05/08 Lio Corcoran MD H/O: heart disorder Insomnia 834110809 (SNOMED CT) 05/08 Active 05/08 Lio Corcoran MD Insomnia Back pain 879909899 (SNOMED CT) 05/08 Active 05/08 Lio Corcoran MD Backache Fatigue 04740120 (SNOMED CT) 05/08 Active 05/08 Lio Corcoran MD Fatigue Depression / anxiety 403935381 (SNOMED CT) 05/08 Active 05/08 Lio Corcoran MD Mixed anxiety and depressive disorder Anticoagulati on 709951103 (SNOMED CT) 05/08 Active 05/08 Lio Corcoran MD Anticoagulant therapy Stented coronary artery 359813173 (SNOMED CT) 05/08 Active 05/08 Lio Corcoran MD Stented coronary artery Medications Medication Instructions Start Date Stop Date Generic Name NDC Provider MIRTAZAPINE 15 MG TABS Take 1 pill by mouh at bedtime MIRTAZAPINE [id number] Lio Corcoran MD MIRTAZAPINE 7.5 MG TABS take 1 tablet nightly by mouth MIRTAZAPINE 36161312338 Lio Corcoran MD CYMBALTA 30 MG CPEP TAKE 1 CAPSULE BY MOUTH EVERY NIGHT for 30 days and then stop it (we are weaning this medicine to start new medicine end of Oct) DULOXETINE HCL 33929588691 Lio Corcoran MD CYMBALTA 30 MG CPEP TAKE 1 CAPSULE BY MOUTH EVERY NIGHT for 30 days and then stop it (we are weaning this medicine to start new medicine end of Oct) DULOXETINE HCL [id number] Lio Corcoran MD CYMBALTA 30 MG CPEP TAKE 1 CAPSULE BY MOUTH EVERY NIGHT (weaning this medicine for 30 days to start new medicine) DULOXETINE HCL 66809579848 Lio Corcoran MD DULOXETINE HCL 60 MG CPEP TAKE 1 CAPSULE BY MOUTH EVERY NIGHT DULOXETINE HCL 78071699019 Lio Corcoran MD MIRTAZAPINE 7.5 MG TABS take 1 tablet nightly by mouth MIRTAZAPINE 12177911790 Lio Corcoran MD CENTRUM SILVER ADULT 50+ TABS TAKE 1 TABLET BY MOUTH EACH DAY MULTIPLE VITAMINS-BIOLOGY DEPARTMENT CHAIR ALS 24360285840 Lio Corcoran MD FISH OIL 1000 MG CAPS TAKE 1 CAPSULE BY MOUTH 2 TIMES A DAY OMEGA-3 FATTY ACIDS 91834842155 Lio Corcoran MD PREVAGEN 10 MG CAPS APOAEQUORIN 18801776245 Lio Corcoran MD DIAZEPAM 5 MG TABS TAKE 1 TABLET BY MOUTH 3 TIMES A DAY NEEDED FOR ANXIETY DIAZEPAM 46874305824 Lio Corcoran MD OXYCODONE HCL 5 MG CAPS TAKE 1 BY MOUTH 3 TIMES A DAY OXYCODONE HCL 29206302880 Lio Corcoran MD SIMVASTATIN 20 MG TABS TAKE 1 TABLET BY MOUTH AT BEDTIME FOR CHOLESTEROL SIMVASTATIN 64823424719 Lio Corcoran MD XARELTO 20 MG TABS TAKE 1 TABLET BY MOUTH ONCE A DAY RIVAROXABAN 89169906329 Lio Corcoran MD OMEPRAZOLE 20 MG CPDR TAKE 1 CAPSULE BY MOUTH ONCE A DAY OMEPRAZOLE 27991405775 Lio Corcoran MD METOPROLOL SUCCINATE ER 25 MG [id number] TAKE 1 TABLET BY MOUTH ONCE A DAY METOPROLOL SUCCINATE 80186788297 Lio Corcoran MD TAMSULOSIN HCL 0.4 MG CAPS TAMSULOSIN HCL 98731456851 Lio Corcoran MD LISINOPRIL 10 MG TABS TAKE 1 TABLET BY MOUTH 1 TIME A DAY LISINOPRIL 02831760701 Lio Corcoran MD AMIODARONE HCL 200 MG TABS TAKE 1 TABLET BY MOUTH TWICE A DAY AMIODARONE HCL 37790228785 Lio Corcoran MD DULOXETINE HCL 60 MG CPEP TAKE 1 CAPSULE BY MOUTH EVERY NIGHT DULOXETINE HCL 98935117796 Lio Corcoran MD Medications Administered No information [...] in Blood ABS NEUTROPH 2947 CELLS/UL 10*3/uL 6879-1217 N Neutrophils [#/volume] in Blood MPV 9.5 [...] Telehealth G202 Medicare Telehealth G202 Medicare Telehealth CPT-09036() Psychotherapy 45m -No [facility]() 05/10/05 G2025 Medicare Telehealth [id number] Medication Reconciliation CPT-3077F Most recent systolic blood pressure >=140 mm Hg CPT-3078F Most recent diastoli c blood pressure <80 mm Hg CPT-88750() Psychotherapy 45m -No [facility]() 20 03/09/10 CPT-08797() Psychotherapy 45m -No [facility]() 20 04/08/11 CPT-75560() Psychotherapy 60m Crises- No [facility]() 202 CPT-74575() Psychotherapy 45m -No [facility]() 20 04/07/19 CPT-1159F Medication list docu mented in medical record [facility] 6399 T1 CBC with diff [facility] 87275 T1 CMP [facility] 08169 T2 Vitamin D 25 Hydroxy 2019 [facility] 83375 T1 TSH reflex to free T4 202 [facility] 927 T1 B12 [facility] 20559 T1 Lipid Panel [facility] 496 T1 HGBA1c [...]
--- OUTSIDE RECORDS SUMMARY | 2025-04-08 15:59 | XMS_ITS | Encounter Summary ---
[facility] Organization [facility] Address [address] [place] [address] Care Team Providers Care Operations And Maintenance Technician Name Role Phone Cheko Heredia MD Primary Care Provider + Reason for Visit * Reason Comments Med Refill Encounter Details Date Type Department Care Team (Late Contact Info) Description 03/10/[address] [facility] [address] [place] [address] Cheko Heredia MD [address] [place] [address] Type 2 diabetes mellitus with [...] Industry Job Start Date Job End Date [employer] Not on file Not on file Not on file documented as of this encounter Plan of Treatment Upcoming Encounters Date Type Department Care Team (Late Contact Info) Description 06/13/2025 3:00 PM EDT Office Visit [facility] [address] [place] [address] Cheko Heredia MD [address] [place] [address] 12/12/2025 2:15 PM EDT Office Visit [facility] [address] [place] [address] Cheko Heredia MD [address] [place] [address] Scheduled Procedures Name Priority Associated Diagnoses Date/Ti me ABLATION A-FIB Atrial fibrillation with RVR Cardiomyopathy, dilated, nonischemic Essential hypertension documented as of this encounter Visit Diagnoses Diagnosis Type 2 diabetes mellitus with hyperglycemia, without long-term current use of insulin documented in this encounter Care Teams Operations And Maintenance Technician Relationship Specialty Start Date End Date Cheko Heredia MD [address] [place] [address] PCP - General Family Medicine 01/10/22 documented as of this encounter
--- OUTSIDE RECORDS SUMMARY | 2025-04-08 15:59 | XMS_ITS | Encounter Summary ---
Author Organization [employer] ([place], [place], [place], [place]) Address [address] [place] [address] Care Team Providers Care Kelly Machine Operator Name Role Phone Unavailable Primary Care Provider Unavailabl e Encounter Details Date Type Department Care Team (Late st Contact Info) Description 01/27/2019 Transcribed Document [facility] Family Medicine [address] [place] [address] ProviderSoham MD [address] [place] [address] Social History Tobacco Use Types [...] Source : Measured Height Entry Format : [place] Height, Feet : 0 ft(Converted to: 0 cm, 0 Inch) Height, Inches : 72 Inch(Converted to: 6 ft 0 Inch, 182.88 cm) Clinical Height : 182.88 cm Weight Source : Standing scale Weight Entry Format : [place] Clinical Dosing Weight : 90.91 kg Weight, Pounds : 200 lb Body Surface Area (BSA) : 2.13 m2 Body Mass Index : 27.2 kg/m2 (HI) [place] Body Weight : 77 kg Vielka Dillon [...] : Living will, Medical durable power of civil attorney (proxy) Copy Advance Directive Verified/on Chart : [...] 02/09/2019 7:18 EDT Emergency Contact #2 : elva Emergency Contact #2 Phone Number : elva Emergency Contact #2 Relationship : elva Vielka Dillon RN - 02/05/2019 12:50 EDT Support Person/Patient [employer] : Yes Support Person/Pt Rep Name : Jesus Hammond- brother [phone] Want Family/Rep/Phys Notified of Admit : No Information Obtained From : Patient Primary Language : Turkish Preferred Communication Mode : Verbal Communication Barrier [...]
--- OUTSIDE RECORDS SUMMARY | 2025-04-08 15:59 | XMS_ITS | Encounter Summary ---
[facility] Organization [facility] Address [address] [place] [address] Care Team Providers Care Demolition Worker Name Role Phone Cheko Heredia MD Primary Care Provider + Reason for Visit * Reason Comments Med Refill Encounter Details Date Type Department Care Team (Late Contact Info) Description 02/09/2025 Refill [facility] [address] [facility] [place] [address] Cheko Heredia MD [address] [place] [address] Mixed hyperlipidemia Social History Tobacco [...] Industry Job Start Date Job End Date [employer] Not on file Not on file Not on file documented as of this encounter Plan of Treatment Upcoming Encounters Date Type Department Care Team (Late Contact Info) Description 06/13/2025 3:00 PM EDT Office Visit [facility] [address] [place] [address] Cheko Heredia MD [address] [place] [address] 12/12/2025 2:15 PM EDT Office Visit [facility] [address] [place] [address] Cheko Heredia MD [address] [place] [address] Scheduled Procedures Name Priority Associated Diagnoses Date/Ti me ABLATION A-FIB Atrial fibrillation with RVR Cardiomyopathy, dilated, nonischemic Essential hypertension documented as of this encounter Visit Diagnoses Diagnosis Mixed hyperlipidemia documented in this encounter Care Teams Demolition Worker Relationship Specialty Start Date End Date Cheko Heredia MD [address] [place] [address] PCP - General Family Medicine 01/10/22 documented as of this encounter
--- OUTSIDE RECORDS SUMMARY | 2025-04-08 15:59 | XMS_ITS | Clinical Summary ---
Author Organization [facility] Address [address] [place] [address] Care Team Providers Care Environmental Sustainability Manager Name Role Phone Kojo Vu Primary Care Provider [phone] Skinny Massey MD Unavailable [phone] Allergies Active Allergy Reactions Criticality Noted [...] (04/19/2019): Added automatically from request for surgery [id number] Social History Tobacco Use Types Packs/Day Years [...] 2025 Insurance MEDICARE ANTHEM MEDICARE PART A [facility] [address] [place] [id number] ANTHEM MEDICARE ANTHEM Care Teams Environmental Sustainability Manager Relationship Specialty Start Date End Date Kojo Vu [address] [place] [address] PCP - General 09/18/18 Skinny Massey MD [address] [place] [id number] Urology 09/22/22
--- OUTSIDE RECORDS SUMMARY | 2025-04-08 15:59 | XMS_ITS | Encounter Summary ---
Author Organization [facility] Address [address] [place] [address] Care Team Providers Care Grape Picker Name Role Phone Horace oKjo Primary Care Provider [phone] Skinny Massey MD Unavailable [phone] Encounter Details Date Type Department Care Team (Latest Contact Info) Description 04/19/2019 Preop Surgical Orders [facility] Physicians - Urology, [address] [phone] Skinny Massey MD [address] [place] [address] Increased frequency of urination (Primary Dx) Social [...] frequency documented in this encounter Care Teams Grape Picker Relationship Specialty Start Date End Date HoraceKojo [address] [place] [id number] PCP - General 09/18/18 Skinny Massey MD [address] [place] [address] Urology 09/22/22 documented as of this encounter
--- OUTSIDE RECORDS SUMMARY | 2025-04-08 15:59 | XMS_ITS | Encounter Summary ---
[facility] [address] [place] [address] Care Team Providers Care Salon Sales Consultant Name Role Phone Cheko Heredia MD Primary Care Provider + Reason for Visit * Reason Comments Med Refill Encounter Details Date Type Department Care Team (Late st Contact Info) Description 04/30/2022 Refill [facility] [address] [facility] [place] [address] Cheko Heredia MD [address] [facility] [place] [address] Chronic pain syndrome; Anxiety about [...] Industry Job Start Date Job End Date [employer] Not on file Not on file Not on file documented as of this encounter Plan of Treatment Upcoming Encounters Date Type Department Care Team (Late st Contact Info) Description 06/13/2025 3:00 PM EDT Office Visit [facility] [address] [place] [address] Cheko Heredia MD [address] [place] [address] 12/12/2025 2:15 PM EDT Office Visit [facility] [address] [place] [address] Cheko Heredia MD [address] [place] [address] Scheduled Procedures Name Priority Associated Diagnoses Date/Ti me ABLATION A-FIB Atrial fibrillation with RVR Cardiomyopathy, dilated, nonischemic Essential hypertension documented as of this encounter Visit Diagnoses Diagnosis Chronic pain syndrome Anxiety about health documented in this encounter Additional Health Concerns Assessment Noted Time PHQ-2 Depression Total Score: 5 01/11/20 22 1:44 PM EDT documented as of this encounter Care Teams Salon Sales Consultant Relationship Specialty Start Date End Date Cheko Heredia MD [address] [place] [address] PCP - General Family Medicine 01/10/22 documented as of this encounter
--- OUTSIDE RECORDS SUMMARY | 2025-04-08 15:59 | XMS_ITS | Clinical Summary ---
Author Organization [facility] Address [address] [place] [address] Care Team Providers Care Meter Installer Name Role Phone Dariusz Vu MD Primary Care Provider [phone] Family History Medical History Relation Name Comments [...] or (1 - 1-dose 75+ series) 2021 [id number] Vaccine ( season) 2024 08/15/2022, 07/20/2021, 11/25/2020, [...] complete this topic Insurance MEDICARE Care Teams Meter Installer Relationship Specialty Start Date End Date Dariusz Vu MD [address] [place] [address] #1 [address]1 [place]TONI Panda [id number] PCP - General 01/26/21
--- OUTSIDE RECORDS SUMMARY | 2025-04-08 15:59 | XMS_ITS | Encounter Summary ---
[facility] Organization [facility] Address [address] [place] [address] Care Team Providers Care Comber Tender Name Role Phone Cheko Heredia MD Primary Care Provider + Encounter Details Date Type Department Care Team (Late Contact Info) Description 12/12/2024 Results Follow-Up [facility] MEDICINE [address] [facility] [place] [address] Cheko Heredia MD [address] [facility] [place] [address] Social History Tobacco Use Types [...] Industry Job Start Date Job End Date [employer] Not on file Not on file Not on file documented as of this encounter Plan of Treatment Upcoming Encounters Date Type Department Care Team (Late Contact Info) Description 06/13/2025 3:00 PM EDT Office Visit [facility] [address] [place] [address] Cheko Heredia MD [address] [place] [address] 12/12/2025 2:15 PM EDT Office Visit [facility] [address] [place] [address] Cheko Heredia MD [address] [place] [address] Scheduled Procedures Name Priority Associated Diagnoses Date/Ti me ABLATION A-FIB Atrial fibrillation with RVR Cardiomyopathy, dilated, nonischemic Essential hypertension documented as of this encounter Visit Diagnoses Not on filedocumented in this encounter Care Teams Comber Tender Relationship Specialty Start Date End Date Cheko Heredia MD [address] [place] [address] PCP - General Family Medicine 01/10/22 documented as of this encounter
--- OUTSIDE RECORDS SUMMARY | 2025-04-08 15:59 | XMS_ITS | Clinical Summary ---
Author Organization [facility] Address [address] [place] [address] Care Team Providers Care Head Neck Surgeon Name Role Phone Cheko Heredia MD Primary Care Provider + Allergies Active Allergy Reactions Criticality Noted Date Comments Sulfa Antibiotics Nausea Only Medium 05/27/2019 Medications Eunice-3 Fatty Acids (FISH OIL) 1000 MG capsule [...] (Eight) Hours As Needed for Severe Pain. 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 PA interval 164 milliseconds, QRS duration 96 milliseconds, QTC 418 milliseconds. Coronary artery disease invo lving ione coronary artery of ione heart without angina pectoris 01/30/2016 Overview (07/11/2016): [...] 2010 - Chest pain with catheterization revealing [employer] DIRECTOR of RCA collateralized, normal LVEF. Unchanged from prior. January 2016 -- cardiac catheterization by Rudolph Jj revealing [employer] DIRECTOR of RCA (collateralized) and 90% stenosis of [...] Description 03/11/2025 2:00 PM EDT Office Visit [facility] [address] [facility] [place] [address] Cheko Heredia MD Type 2 diabetes mellitus with hyperglycemia, without long-term current use of insulin (Primary Dx); Chronic pain syndrome; Chronic pain syndrome; Spondylosis of lumbar region without myelopathy or radiculopathy; Anxiety about health 03/11/2025 Travel 03/10/[address] [facility] [address] [facility] [place] [place] [address] Cheko Heredia MD Type 2 diabetes mellitus with hyperglycemia, without long-term current use of insulin 02/25/[address] [facility] [address] [place] [address] Cheko Heredia MD Chronic midline low back pain without sciatica 02/09/[address] [facility] [address] [place] [address] Cheko Heredia MD Mixed hyperlipidemia 02/08/[address] [facility] [address] [place] [address] Cheko Heredia MD Chronic pain syndrome; Spondylosis of lumbar region without myelopathy or radiculopathy 01/12/[address] [facility] [address] [place] [address] Cheko Heredia MD Shortness of breath 01/10/[address] [facility] [address] [place] [place] [...] Industry Job Start Date Job End Date [employer] Not on file Not on file [...] PM EDT Office Visit [facility] [address] [place] [address] Cheko Heredia MD [address] [place] [address] 12/12/2025 2:15 PM EDT Office Visit [facility] [address] [place] [address] Cheko Heredia MD [address] [place] [address] Scheduled Procedures Name Priority Associated Diagnoses Date/Ti [...] Discontinued 05/16/2016 Medical Devices Implanted Type Area Health Researcher Device Identifier Shelf Expiration Date Model / Serial / Lot Stent Stent Stent Description:3 cardiac stents Stent Description:3 cardiac stents Stent Description:3 cardiac stents Procedures Procedure Name Priority Date/Time Associated Diagnosis Comments SCANNED EKG 04/07/2025 SCANNED EKG 04/07/2025 SCANNED - IMAGING 04/07/2025 SCANNED - IMAGING 04/07/2025 POC ALBUMIN/CREATININE RATIO Routine 12/10/2024 3:26 PM [...] Recently Relevant to Health Maintenance Results * ECG Scan (04/07/2025) Only the most recent of2 resultswithin the time period is included. Cheko Heredia MD ECG ORDERABLES Final Re sult * IMAGING SCANNED (04/07/2025) Only the most recent of2 resultswithin the time period is included. Anatomical Region Laterality Modality Radiographic Susanne ging Cheko Heredia MD IMG DIAGNOSTIC IMAGING O RDERABLES Final Result * POC Albumin/Creatinine Ratio Urine (12/10/2024 3:26 PM EDT) POC ALBUMIN, URINE 30 mg/L POC CREATININE, URINE 100 mg/dL POC Urine Albumin Creatinine Ratio <30 mg/g <30 Comment:normal Lot Number [id number] Expiration Date 10/15/2025 Urine 12/10/2024 3:26 PM EDT Cheko Heredia MD POINT OF CARE TEST ORDER ZOARIDA Final Result * (ABNORMAL) Hemoglobin A1c (12/10/2024 3:04 PM EDT) [facility] Hemoglobin A1C 6.5(H) 4.8 - 5.6 % [facility] Comment: Prediabetes: 5.7 - 6.4 Diabetes: >6.4 Glycemic control for adults with diabetes: <7.0 Blood 12/10/2024 3:04 PM EDT 12/10/2024 Narrative [facility]) - 12/11/2024 6:09 AM EDT Performed at: [address] [id number] Dispatcher Service Or Work: Jose Weller PhD, Phone: [phone] Patient Fasting: Y Cheko Heredia MD LAB BLOOD ORDERABLES Fin al Result Performing Organization Address City/[facility] Co de Phone Number [facility] ([facility]) [address] [place] [address], [place] [phone] [facility] [address] [place] [address], [place] [phone] * (ABNORMAL) Lipid Panel (12/10/2024 3:04 PM EDT) [facility] Total Cholesterol 152 100 - 199 mg/dL [facility] Triglycerides 243(H) 0 - 149 mg/dL [facility] HDL Cholesterol 52 >39 mg/dL [facility] VLDL Cholesterol Kirt 39 5 - 40 mg/dL [facility] LDL Chol Calc (NIH) 61 0 - 99 mg/dL [facility] Blood 12/10/2024 3:04 PM EDT 12/10/2024 Narrative [facility] ([facility]) - 12/11/2024 6:09 AM EDT Performed at: [address] [id number] Dispatcher Service Or Work: Jose Weller PhD, Phone: [phone] Patient Fasting: Y Cheko Heredia MD LAB BLOOD ORDERABLES Fin al Result [facility]) [address] [place] [address], [place] [phone] [facility] [address] [place] [address], * SCANNED - INFLUENZA (07/21/2023) [facility] CHART [facility] TABS Final Re sult from Last 3 Months or Most Recently Relevant to Health Maintenance Insurance MEDICARE A & B Member Subscriber Plan / Payer (Ef fective 2011-Present) Name:Mino Hsu Member ID:[id number] Relation to Subscriber:Self Name:Mino Hsu Subscriber ID:[id number] Payer ID:[id number] Group ID:Not on file Type:Not on file Address: [address] [place] [id number] [facility] Advance Directives * Full Code (Latest Code Status on File) Date Activated Date Inactivated Comments 09/01/2016 12:25 AM 09/02/2016 3:37 PM Care Teams Head Neck Surgeon Relationship Specialty Start Date End Date Cheko Heredia MD [address] [facility] [place] [address] PCP - General Family Medicine 01/10/22
--- OUTSIDE RECORDS SUMMARY | 2025-04-08 15:59 | XMS_ITS | Encounter Summary ---
Author Organization [facility] Address [address] [place] [address] Care Team Providers Care Esthetics Instructor Name Role Phone Cheko Heredia MD Primary Care Provider + Reason for Visit * Reason Comments Med Refill Encounter Details Date Type Department Care Team (Late Contact Info) Description 02/25/2025 Refill [facility] [address] [place] [address] Cheko eHredia MD [address] [place] [address] Chronic midline low back pain [...] Industry Job Start Date Job End Date [employer] Not on file Not on file Not on file documented as of this encounter Plan of Treatment Upcoming Encounters Date Type Department Care Team (Late Contact Info) Description 06/13/2025 3:00 PM EDT Office Visit [facility] [address] [place] [address] Cheko Heredia MD [address] [place] [address] 12/12/2025 2:15 PM EDT Office Visit [facility] MEDICINE [address] [place] [address] Cheko Heredia MD [address] [place] [address] Scheduled Procedures Name Priority Associated Diagnoses Date/Ti me ABLATION A-FIB Atrial fibrillation with RVR Cardiomyopathy, dilated, nonischemic Essential hypertension documented as of this encounter Visit Diagnoses Diagnosis Chronic midline low back pain without sciatica documented in this encounter Care Teams Esthetics Instructor Relationship Specialty Start Date End Date Cheko Heredia MD [address] [place] [address] PCP - General Family Medicine 01/10/22 documented as of this encounter
--- OUTSIDE RECORDS SUMMARY | 2025-04-08 15:59 | XMS_ITS | Encounter Summary ---
Author Organization [facility] ([place], [place], [place], [place]) Address [address] [place] [address] Care Team Providers Care Curriculum Coordinator Name Role Phone Unavailable Primary Care Provider Unavailabl e Encounter Details Date Type Department Care Team (Late st Contact Info) Description 02/09/2019 Transcribed Document [facility] [place] [facility] [place] [address] ProviderSoham MD [facility] [place] [address] Social History Tobacco Use Types [...] Soham ProviderMD - 02/09/2019 12:11 PM CDT [facility] [place] [address] MINO HSU :1945 Visit Time:02/09/2019 [...] Follow Up Instructions: f/u 02/[address] Odom for catheter removal Activity: Discharge Activity: Activity as tolerated Diet: Discharge Diet: Resume usual diet as tolerated Follow-Up Appointments Follow Up with [facility] When 02/12/2019 04:15 PM EDT Comments Appointment has been made Where: [address] [place] [address]- [facility] (1) Medications What How Much When Instructions [...] on each side. Do this in a ftjlj-wm-dteq direction. ? If you are male: ? [...] and water are not available, use hand investigator cash shortage. ??? Always make sure there are no [...] 09/01/2006 Document Revised: 04/17/2018 Document Reviewed: 04/17/2018 [employer] Interactive Patient Education ?? 2019 [employer] Prostate Laser Surgery, Care After This [...] clear or pale yellow. Medicines ??? Take nopw-yel-wpivgvw and prescription medicines, including stool softeners, only [...] 09/01/2006 Document Revised: 04/18/2017 Document Reviewed: 04/18/2017 [employer] Interactive Patient Education ?? 2019 [employer]. Outpatient Surgery, Adult, Care After These instructions [...] and water are not available, use hand investigator cash shortage. ? Change your dressing as told by [...] or a bad smell. Medicines ??? Take dpki-ubl-mreefxr and prescription medicines only as told by [...] 12/22/2016 Document Revised: 04/09/2018 Document Reviewed: 12/22/2016 [employer] Interactive Patient Education ?? 2019 [employer] phenazopyridine (fen AY matthew PIR i [...] or ?? a genetic enzyme deficiency called lalbahu-9-hmpybyosz dehydrogenase (G6PD) deficiency. FDA category B. Phenazopyridine [...] may report side effects to FDA at 9-815-ZWC-7707. What other drugs will affect phenazopyridine? Other drugs may interact with phenazopyridine, including prescription and wytb-qcs-akyyqly medicines, vitamins, and herbal products. Tell each [...] to ensure that the information provided by [employer]. ('[employer]') is accurate, up-to-date, and complete, but no guarantee is made to that effect. Drug information contained herein may be time sensitive. [employer] information has been compiled for use by healthcare practitioners and consumers in the [place] and therefore [employer] does not warrant that uses outside of the [place] are appropriate, unless specifically indicated otherwise. [employer]'s drug information does not endorse drugs, diagnose patients or recommend therapy. [employer]'s drug information is an informational resource designed [...] effective or appropriate for any given patient. [facility] does not assume any responsibility for any aspect of healthcare administered with the aid of information [facility] provides. The information contained herein is not intended to cover all possible uses, directions, precautions, warnings, drug interactions, allergic reactions, or adverse effects. If you have questions about the drugs you are taking, check with your doctor, nurse or pharmacist. Copyright 8614-8402 [facility]. Version: 3.05. Revision Date: 01/06/2014.nitrofurantoin (BELKIS troe [...] electrolyte imbalance or vitamin B deficiency; ?? jkuorkg-6-jnmhpyfnt dehydrogenase (G6PD) deficiency; or ?? any type [...] may report side effects to FDA at 4-720-COE-6411. What other drugs will affect nitrofurantoin? Other drugs may interact with nitrofurantoin, including prescription and ryuj-fzx-ystemuo medicines, vitamins, and herbal products. Tell each [...] to ensure that the information provided by [employer]. ('[employer]') is accurate, up-to-date, and complete, but no guarantee is made to that effect. Drug information contained herein may be time sensitive. [employer] information has been compiled for use by healthcare practitioners and consumers in the [place] and therefore [employer] does not warrant that uses outside of the [place] are appropriate, unless specifically indicated otherwise. [employer] drug information does not endorse drugs, diagnose patients or recommend therapy. [employer] drug information is an informational resource designed [...] effective or appropriate for any given patient. [employer] does not assume any responsibility for any aspect of healthcare administered with the aid of information [employer] provides. The information contained herein is not intended to cover all possible uses, directions, precautions, warnings, drug interactions, allergic reactions, or adverse effects. If you have questions about the drugs you are taking, check with your doctor, nurse or pharmacist. Copyright 5354-7181 [employer]. Version: 8.01. Revision Date: 11/23/2013.acetaminophen and hydrocodone (a SEET a MIN oh fen and cassi AMBROCIO done) Hycet, Lorcet, [place], Verdrocet, Vicodin, Xodol, Zamicet What is the [...] may report side effects to FDA at 6-249-WHI-0713. What other drugs will affect acetaminophen and [...] affect acetaminophen and hydrocodone, including prescription and ijjo-gig-pczcrqs medicines, vitamins, and herbal products. Not all [...] to ensure that the information provided by [employer] ('[employer]') is accurate, up-to-date, and complete, but no guarantee is made to that effect. Drug information contained herein may be time sensitive. [employer] information has been compiled for use by healthcare practitioners and consumers in the [place] and therefore [employer] does not warrant that uses outside of the [place] are appropriate, unless specifically indicated otherwise. [employer] drug information does not endorse drugs, diagnose patients or recommend therapy. [employer] drug information is an informational resource designed [...] effective or appropriate for any given patient. [employer] does not assume any responsibility for any aspect of healthcare administered with the aid of information [employer] provides. The information contained herein is not intended to cover all possible uses, directions, precautions, warnings, drug interactions, allergic reactions, or adverse effects. If you have questions about the drugs you are taking, check with your doctor, nurse or pharmacist. Copyright 6779-8840 [employer]. Version: 15.. Revision Date: 07/20/2018.docusate (oral/rectal) (DOK [...] may report side effects to FDA at 7-968-LGS-9415. What other drugs will affect docusate? Other drugs may interact with docusate, including prescription and fcas-gmq-jmlmrdi medicines, vitamins, and herbal products. Tell each [...] to ensure that the information provided by [employer] ('[employer]') is accurate, up-to-date, and complete, but no guarantee is made to that effect. Drug information contained herein may be time sensitive. [employer] information has been compiled for use by healthcare practitioners and consumers in the [place] and therefore [employer] does not warrant that uses outside of the [place] are appropriate, unless specifically indicated otherwise. [employer]'s drug information does not endorse drugs, diagnose patients or recommend therapy. [employer] drug information is an informational resource designed [...] effective or appropriate for any given patient. [employer] does not assume any responsibility for any aspect of healthcare administered with the aid of information [employer] provides. The information contained herein is not intended to cover all possible uses, directions, precautions, warnings, drug interactions, allergic reactions, or adverse effects. If you have questions about the drugs you are taking, check with your doctor, nurse or pharmacist. Copyright 5133-2439 [employer]. Version: 3.03. Revision Date: 10/27/2013. Emergency Awareness [...] Assistance with quitting is available by contacting 9-170-EWCLNOW. This is a free resource providing counseling, [...] Be sure to sign up for the [facility] patient portal, which gives you 07/04 access to your medical information ??? including these discharge instructions ??? using your computer, smartphone, or tablet. Just go to [employer] to get started. Questions? Call . Test Results Laboratory or Other Results This Visit (last charted value for your 02/09/2019 visit) No Laboratory or Other Results This Visit Patient Name:MINO HSU I have received this information and was given the opportunity to ask questions. Patient/Doughnut Machine Operator Name: Patient/Doughnut Machine Operator Signature: Relationship to Patient: Clinician/Hospital Doughnut Machine Operator Signature: Date: documented in this encounter Plan of Treatment Not on file documented as of this encounter Visit Diagnoses Not on filedocumented in this encounter
--- OUTSIDE RECORDS SUMMARY | 2025-04-08 15:59 | XMS_ITS | Data Portability ---
Author Organization [facility] ALAYNA Dennison WILSON CLOSED Address [address] [place] [address] Care Team Providers Care Press Leader Name Role Phone ALEX TOLENTINO Referring Provider [phone] Assessment No assessment recorded. Plan of Treatment Reminders Order Date Submit Date Provider Last Modified By Organization Details Last Modified Time Details Appointments None recorded. Lab urinalysis panel, auto [address] [facility], [address], [address], [place], [address], 2 14:48:50 urinalysis, dipstick, auto [address] [facility], [address], [address], [place], [address], 9 16:58:01 culture, urine 2018 019 [facility], [address] [place] [address], [address], 9 10:33:25 urinalysis, dipstick, auto [address] [facility], [address], [address], [place], [address], 9 15:01:05 culture, urine 2018 019 [facility], [address] [facility] [facility], [place], [address], 9 09:56:48 Referral None recorded. Procedures None recorded. Surgeries None recorded. Imaging None recorded. Medication Orders None recorded. Patient TargetsNo targets recorded. Patient Instructions Encounter Date Encounter Id Patient Instructions Last Modified By Organization Details Last Modified Time 03/29/2019 [id number] frequent urination: care instructions [email or web address] Not available 03/29/2019 12:50:18 04/02/2019 [id number] Urinary Tract Infections (UTI) in Men: Care Instructions [email or web address] Not available 04/02/2019 15:12:19 06/08/2019 [id number] Spent 25 total minutes with the patient today. Greater than 50% of this time was spent counseling/coordi nation of care as documented in my assessment and plan above. Not available 06/08/2019 14:20:26 Reason for Referral None Reported. Results Created Date Observation Date Name Description Value Unit Range Abnormal Flag Note LastModifiedBy Organization Detail LastModifiedTime 04/02/2004/02/2019 urina lysis , dipst ick, auto Unknown Analyte Yellow Not Available [facility] [address], [address], 04/02/2019 13:51:50 04/02/2004/02/2019 urina lysis , dipst ick, auto Unknown Analyte Clear Not Available [facility] [address] [place] [address] [address], [address], 04/02/2019 13:51:50 04/02/2004/02/2019 urina lysis , dipst ick, auto Unknown Analyte 1.010 Not Available [facility] [address] [place] [address] [address], [place], [address], 04/02/2019 13:51:50 04/02/2004/02/2019 urina lysis , dipst ick, auto Unknown Analyte 1.003 - 1.035 Not Available [facility] [address], [place], [address], 04/02/2019 13:51:50 04/02/2004/02/2019 urina lysis , dipst ick, auto Unknown Analyte 6.5 Not Available [facility] [address] [facility] [address], [place], [address], 04/02/2019 13:51:50 04/02/2004/02/2019 urina lysis , dipst ick, auto Unknown Analyte 5.0 - 8.0 Not Available [facility] [address] [facility] [address], [place], [address], 04/02/2019 13:51:50 04/02/2004/02/2019 urina lysis , dipst ick, auto Unknown Analyte Negati ve Not Available [facility] [address] [facility] [address], [place], [address], 04/02/2019 13:51:50 04/02/2004/02/2019 urina lysis , dipst ick, auto Unknown Analyte Negati ve Not Available [facility] [address] [facility] [address], [place], [address], 04/02/2019 13:51:50 04/02/2004/02/2019 urina lysis , dipst ick, auto Unknown Analyte Negati ve Not Available [facility] [address] [facility] [address], [place], [address], 04/02/2019 13:51:50 04/02/2004/02/2019 urina lysis , dipst ick, auto Unknown Analyte Negati ve Not Available [facility] [address], [place], [address], 04/02/2019 13:51:50 04/02/2004/02/2019 urina lysis , dipst ick, auto Unknown Analyte Negtiv e Not Available [facility] [address], [place], [address], 04/02/2019 13:51:50 04/02/2004/02/2019 urina lysis , dipst ick, auto Unknown Analyte Negati ve - Trace Not Available [facility] [address], [place], [address], 04/02/2019 13:51:50 04/02/2004/02/2019 urina lysis , dipst ick, auto Unknown Analyte Normal Not Available [facility] [address], [place], [address], 04/02/2019 13:51:50 04/02/2004/02/2019 urina lysis , dipst ick, auto Unknown Analyte Normal Not Available [facility] [address], [place], [address], 04/02/2019 13:51:50 04/02/2004/02/2019 urina lysis , dipst ick, auto Unknown Analyte Negati ve Not Available [facility] [address], [place], [address], 04/02/2019 13:51:50 04/02/2004/02/2019 urina lysis , dipst ick, auto Unknown Analyte Negati ve Not Available [facility] [address], [place], [address], 04/02/2019 13:51:50 04/02/2004/02/2019 urina lysis , dipst ick, auto Unknown Analyte Normal Not Available [facility] [address], [place], [address], 04/02/2019 13:51:50 04/02/2004/02/2019 urina lysis , dipst ick, auto Unknown Analyte Normal - 1mg/dl Not Available [facility] [address] [facility] [address], [place], [address], 04/02/2019 13:51:50 04/02/2004/02/2019 urina lysis , dipst ick, auto Unknown Analyte Negati ve Not Available [facility] [address] [facility] [address], [place], [address], 04/02/2019 13:51:50 04/02/2004/02/2019 urina lysis , dipst ick, auto Unknown Analyte Negati ve Not Available [facility] [address] [facility] [address], [place], [address], 04/02/2019 13:51:50 04/02/2004/02/2019 urina lysis , dipst ick, auto Unknown Analyte Negati ve Not Available [facility] [address] [facility] [address], [place], [address], 04/02/2019 13:51:50 04/02/20 19 04/02/2019 urina lysis , dipst ick, auto Unknown Analyte Negati ve Not Available [facility] [address], [place], [address], 04/02/2019 13:51:50 04/02/2004/02/2019 urina lysis , dipst ick, auto Unknown Analyte Clean Catch Not Available [facility] [address] [facility] [address], [place], [address], 04/02/2019 13:51:50 04/02/2004/02/2019 urina lysis , dipst ick, auto Unknown Analyte Automa minesh Not Available [facility] [address] [facility] [address], [place], [address], 04/02/2019 13:51:50 03/29/2003/29/2019 urina lysis , dipst ick, auto Unknown Analyte [place] Not Available [facility] [address], [place], [address], 03/29/2019 12:28:20 03/29/2003/29/2019 urina lysis , dipst ick, auto Unknown Analyte Clear Not Available [facility] [address], [place], [address], 03/29/2019 12:28:20 03/29/2003/29/2019 urina lysis , dipst ick, auto Unknown Analyte 1.020 Not Available [facility] [address] [facility] [address], [place], [address], 03/29/2019 12:28:20 03/29/20 19 03/29/2019 urina lysis , dipst ick, auto Unknown Analyte 1.003 - 1.035 Not Available [facility] [address], [place], [address], 03/29/2019 12:28:20 03/29/20 19 03/29/2019 urina lysis , dipst ick, auto Unknown Analyte 5.0 Not Available [facility] [address], [place], [address], 03/29/2019 12:28:20 03/29/20 19 03/29/2019 urina lysis , dipst ick, auto Unknown Analyte 5.0 - 8.0 Not Available [facility] [address], [place], [address], 03/29/2019 12:28:20 03/29/2003/29/2019 urina lysis , dipst ick, auto Unknown Analyte 500 Сергей/ul (++) Not Available [facility] [address], [place], [address], 03/29/2019 12:28:20 03/29/2003/29/2019 urina lysis , dipst ick, auto Unknown Analyte Negati ve Not Available [facility] [address] [facility] [address], [place], [address], 03/29/2019 12:28:20 03/29/2003/29/2019 urina lysis , dipst ick, auto Unknown Analyte Positi ve Not Available [facility] [address], [place], [address], 03/29/2019 12:28:20 03/29/20 19 03/29/2019 urina lysis , dipst ick, auto Unknown Analyte Negati ve Not Available [facility] [address], [place], [address], 03/29/2019 12:28:20 03/29/2003/29/2019 urina lysis , dipst ick, auto Unknown Analyte 500 mg/dl (+++) Not Available [facility] [address], [place], [address], 03/29/2019 12:28:20 03/29/20 19 03/29/2019 urina lysis , dipst ick, auto Unknown Analyte Negati ve - Trace Not Available [facility] [address], [place], [address], 03/29/2019 12:28:20 03/29/20 19 03/29/2019 urina lysis , dipst ick, auto Unknown Analyte Normal Not Available [facility] [address], [place], [address], 03/29/2019 12:28:20 03/29/2003/29/2019 urina lysis , dipst ick, auto Unknown Analyte Normal Not Available [facility] [address], [place], [address], 03/29/2019 12:28:20 03/29/20 19 03/29/2019 urina lysis , dipst ick, auto Unknown Analyte Negati ve Not Available [facility] [address], [place], [address], 03/29/2019 12:28:20 03/29/20 19 03/29/2019 urina lysis , dipst ick, auto Unknown Analyte Negati ve Not Available [facility] [address], [place], [address], 03/29/2019 12:28:20 03/29/20 19 03/29/2019 urina lysis , dipst ick, auto Unknown Analyte >12 mg/dl Not Available [facility] [address], [place], [address], 03/29/2019 12:28:20 03/29/20 19 03/29/2019 urina lysis , dipst ick, auto Unknown Analyte Normal - 1mg/dl Not Available [facility] [address], [place], [address], 03/29/2019 12:28:20 03/29/20 19 03/29/2019 urina lysis , dipst ick, auto Unknown Analyte 6 mg/dl (+++) Not Available [facility] [address], [place], [address], 03/29/2019 12:28:20 03/29/20 19 03/29/2019 urina lysis , dipst ick, auto Unknown Analyte Negati ve Not Available [facility] [address], [place], [address], 03/29/2019 12:28:20 03/29/20 19 03/29/2019 urina lysis , dipst ick, auto Unknown Analyte 50 Kandice/ul Not Available [facility] [address], [place], [address], 03/29/2019 12:28:20 03/29/20 19 03/29/2019 urina lysis , dipst ick, auto Unknown Analyte Negati ve Not Available [facility] [address], [place], [address], 03/29/2019 12:28:20 03/29/20 19 03/29/2019 urina lysis , dipst ick, auto Unknown Analyte Clean Catch Not Available [facility] [address], [place], [address], 03/29/2019 12:28:20 03/29/20 19 03/29/2019 urina lysis , dipst ick, auto Unknown Analyte Automa minesh Not Available [facility] [address] [facility] [address], [place], [address], 03/29/2019 12:28:20 03/15/20 19 03/15/2019 urina lysis , dipst ick, auto Unknown Analyte [place] Not Available [facility] [address] [place] [address] [address], [place], [address], 03/15/2019 14:05:30 03/15/20 19 03/15/2019 urina lysis , dipst ick, auto Unknown Analyte Clear Not Available [facility] [address] [facility] [address], [place], [address], 03/15/2019 14:05:30 03/15/20 19 03/15/2019 urina lysis , dipst ick, auto Unknown Analyte 1.015 Not Available [facility] [address], [place], [address], 03/15/2019 14:05:30 03/15/20 19 03/15/2019 urina lysis , dipst ick, auto Unknown Analyte 1.003 - 1.035 Not Available [facility] [address] [facility] [address], [place], [address], 03/15/2019 14:05:30 03/15/2003/15/2019 urina lysis , dipst ick, auto Unknown Analyte 6.5 Not Available [facility] [address], [place], [address], 03/15/2019 14:05:30 03/15/2003/15/2019 urina lysis , dipst ick, auto Unknown Analyte 5.0 - 8.0 Not Available [facility] [address] [place] [address] [address], [place], [address], 03/15/2019 14:05:30 03/15/20 19 03/15/2019 urina lysis , dipst ick, auto Unknown Analyte 500 Сергей/ul (++) Not Available [facility] [address] [place] [address] [address], [place], [address], 03/15/2019 14:05:30 03/15/2003/15/2019 urina lysis , dipst ick, auto Unknown Analyte Negati ve Not Available [facility] [address] [place] [address] [address], [place], [address], 03/15/2019 14:05:30 03/15/2003/15/2019 urina lysis , dipst ick, auto Unknown Analyte Positi ve Not Available [facility] [address], [place], [address], 03/15/2019 14:05:30 03/15/2003/15/2019 urina lysis , dipst ick, auto Unknown Analyte Negati ve Not Available [facility] [address], [place], [address], 03/15/2019 14:05:30 03/15/2003/15/2019 urina lysis , dipst ick, auto Unknown Analyte 500 mg/dl (+++) Not Available [facility] [address], [place], [address], 03/15/2019 14:05:30 03/15/2003/15/2019 urina lysis , dipst ick, auto Unknown Analyte Negati ve - Trace Not Available [facility] [address], [place], [address], 03/15/2019 14:05:30 03/15/2003/15/2019 urina lysis , dipst ick, auto Unknown Analyte Normal Not Available [facility] [address], [place], [address], 03/15/2019 14:05:30 03/15/2003/15/2019 urina lysis , dipst ick, auto Unknown Analyte Normal Not Available [facility] [address], [place], [address], 03/15/2019 14:05:30 03/15/2003/15/2019 urina lysis , dipst ick, auto Unknown Analyte Negati ve Not Available [facility] [address], [place], [address], 03/15/2019 14:05:30 03/15/20 19 03/15/2019 urina lysis , dipst ick, auto Unknown Analyte Negati ve Not Available [facility] [address], [place], [address], 03/15/2019 14:05:30 03/15/2003/15/2019 urina lysis , dipst ick, auto Unknown Analyte >12 mg/dl Not Available [facility] [address], [place], [address], 03/15/2019 14:05:30 03/15/20 19 03/15/2019 urina lysis , dipst ick, auto Unknown Analyte Normal - 1mg/dl Not Available [facility] [address], [place], [address], 03/15/2019 14:05:30 03/15/2003/15/2019 urina lysis , dipst ick, auto Unknown Analyte 3 mg/dl (++) Not Available [facility] [address], [place], [address], 03/15/2019 14:05:30 03/15/20 19 03/15/2019 urina lysis , dipst ick, auto Unknown Analyte Negati ve Not Available [facility] [address], [place], [address], 03/15/2019 14:05:30 03/15/20 19 03/15/2019 urina lysis , dipst ick, auto Unknown Analyte 50 Kandice/ul Not Available [facility] [address], [place], [address], 03/15/2019 14:05:30 03/15/20 19 03/15/2019 urina lysis , dipst ick, auto Unknown Analyte Negati ve Not Available [facility] [address] [place] [address] [address], [place], [address], 03/15/2019 14:05:30 03/15/2003/15/2019 urina lysis , dipst ick, auto Unknown Analyte Clean Catch Not Available [facility] [address] [place] [address] [address], [place], [address], 03/15/2019 14:05:30 03/15/20 19 03/15/2019 urina lysis , dipst ick, auto Unknown Analyte Automa minesh Not Available [facility] [address] [place] [address] [address], [place], [address], 03/15/2019 14:05:30 03/03/20 19 03/03/2019 urina lysis , dipst ick, auto Unknown Analyte [place] Not Available [facility] [address] [place] [address] [address], [place], [address], 03/03/2019 13:37:08 03/03/2003/03/2019 urina lysis , dipst ick, auto Unknown Analyte Hazy Not Available [facility] [address] [place] [address] [address], [place], [address], 03/03/2019 13:37:08 03/03/20 19 03/03/2019 urina lysis , dipst ick, auto Unknown Analyte 1.020 Not Available [facility] [address], [place], [address], 03/03/2019 13:37:08 03/03/20 19 03/03/2019 urina lysis , dipst ick, auto Unknown Analyte 1.003 - 1.035 Not Available [facility] [address] [facility] [address], [place], [address], 03/03/2019 13:37:08 03/03/20 19 03/03/2019 urina lysis , dipst ick, auto Unknown Analyte 5.0 Not Available [facility] [address] [facility] [address], [address], 03/03/2019 13:37:08 03/03/20 19 03/03/2019 urina lysis , dipst ick, auto Unknown Analyte 5.0 - 8.0 Not Available [facility] [address] [facility] [address], [place], [address], 03/03/2019 13:37:08 03/03/20 19 03/03/2019 urina lysis , dipst ick, auto Unknown Analyte Negati ve Not Available [facility] [address] [facility] [address], [address], 03/03/2019 13:37:08 03/03/20 19 03/03/2019 urina lysis , dipst ick, auto Unknown Analyte Negati ve Not Available [facility] [address] [facility] [address], [address], 03/03/2019 13:37:08 03/03/20 19 03/03/2019 urina lysis , dipst ick, auto Unknown Analyte Positi ve Not Available [facility] [address], [place], [address], 03/03/2019 13:37:08 03/03/20 19 03/03/2019 urina lysis , dipst ick, auto Unknown Analyte Negati ve Not Available [facility] [address], [place], [address], 03/03/2019 13:37:08 03/03/20 19 03/03/2019 urina lysis , dipst ick, auto Unknown Analyte 500 mg/dl (+++) Not Available [facility] [address], [place], [address], 03/03/2019 13:37:08 03/03/20 19 03/03/2019 urina lysis , dipst ick, auto Unknown Analyte Negati ve - Trace Not Available [facility] [address], [place], [address], 03/03/2019 13:37:08 03/03/2003/03/2019 urina lysis , dipst ick, auto Unknown Analyte Normal Not Available [facility] [address], [place], [address], 03/03/2019 13:37:08 03/03/20 19 03/03/2019 urina lysis , dipst ick, auto Unknown Analyte Normal Not Available [facility] [address], [place], [address], 03/03/2019 13:37:08 03/03/20 19 03/03/2019 urina lysis , dipst ick, auto Unknown Analyte Negati ve Not Available [facility] [address], [place], [address], 03/03/2019 13:37:08 03/03/20 19 03/03/2019 urina lysis , dipst ick, auto Unknown Analyte Negati ve Not Available [facility] [address], [place], [address], 03/03/2019 13:37:08 03/03/20 19 03/03/2019 urina lysis , dipst ick, auto Unknown Analyte 8 mg/dl Not Available [facility] [address], [place], [address], 03/03/2019 13:37:08 03/03/20 19 03/03/2019 urina lysis , dipst ick, auto Unknown Analyte Normal - 1mg/dl Not Available [facility] [address], [place], [address], 03/03/2019 13:37:08 03/03/2003/03/2019 urina lysis , dipst ick, auto Unknown Analyte 3 mg/dl (++) Not Available [facility] [address], [place], [address], 03/03/2019 13:37:08 03/03/20 19 03/03/2019 urina lysis , dipst ick, auto Unknown Analyte Negati ve Not Available Pending sale to [facility] [address] [facility] [address], [place], [address], 03/03/2019 13:37:08 03/03/20 19 03/03/2019 urina lysis , dipst ick, auto Unknown Analyte 250 Kandice/ul Not Available [facility] [address] [facility] [address], [place], [address], 03/03/2019 13:37:08 03/03/20 19 03/03/2019 urina lysis , dipst ick, auto Unknown Analyte Negati ve Not Available [facility] [address] [facility] [address], [place], [address], 03/03/2019 13:37:08 03/03/20 19 03/03/2019 urina lysis , dipst ick, auto Unknown Analyte Clean Catch Not Available [facility] [address] [facility] [address], [place], [address], 03/03/2019 13:37:08 03/03/20 19 03/03/2019 urina lysis , dipst ick, auto Unknown Analyte Automa minesh Not Available [facility] [address] [place] [address] [address], [place], [address], 03/03/2019 13:37:08 03/15/20 19 03/15/2019 cultu re, urine results [facility] e: CCUR Colle cted: 03/15 14:46 Site: Eloyi zaire : 03/15 20:15 URINE SCREE N(CUL TURE) FINAL 03/17 12:24 03/17 No growt h day 2. Not Available [facility] [place], [address], 03/17/2019 12:24:32 03/29/20 19 03/29/2019 cultu re, urine results Sour e: ALONSO Egan cted: 03/29 12:29 Site: Maryam zaire : 03/29 14:10 URINE SCREE N(CUL TURE) FINAL 03/31 15:00 03/31 No growt h day 2. Not Available [facility] [address] [place] [address], [address], 03/31/2019 15:00:56 04/02/20 19 04/02/2019 cultu re, urine results Sourc e: ALONSO Egan cted: 04/02 13:52 Site: Maryam zaire : 04/02 20:07 URINE SCREE N(CUL TURE) FINAL 04/05 10:45 04/03 COLON Y COUNT : > 100,0 00 CFU/M L Proba ble Gram Negat amy Bacil eri. ID and sensi tivit y in progr ess. 04/05 See [place] [facility] Resul t(s) Below ISOLA KELLIE AND SENSI TIVIT Y RESUL TS [place] [facility] 01 [facility] __ [place] [facility] ORG# 01 ANTIB IOTIC S DARERL INT __ Amox/ K Clav' ate(c ) [...] Trime thopr im <=8 S Not Available [facility] [address] [place] [address], [address], 04/05/2019 10:46:01 06/08/20 19 06/08/2019 creat inine , serum or plasm a creatinine 1.06 mg/dL 0.70-1 .25 normal Not Available [facility] [address] [place] [address], [address], 06/08/2019 12:45:16 01/15/20 22 01/14/2022 urina lysis panel , auto Unknown Analyte Clean Catch Not Available Pending sale to [facility] [address], [address], 01/14/2022 14:35:10 01/15/20 22 01/14/2022 urina lysis panel , auto Unknown Analyte Yellow Not Available [facility] [address], [address], 01/14/2022 14:35:10 01/15/20 22 01/14/2022 urina lysis panel , auto Unknown Analyte Clear Not Available [facility] [address], [address], 01/14/2022 14:35:10 01/15/20 22 01/14/2022 urina lysis panel , auto Unknown Analyte 1.020 Not Available [facility] [address], [place], [address], 01/14/2022 14:35:10 01/15/20 22 01/14/2022 urina lysis panel , auto Unknown Analyte 1.003- 1.035 Not Available [facility] [address], [place], [address], 01/14/2022 14:35:10 01/15/20 22 01/14/2022 urina lysis panel , auto Unknown Analyte 5.0 Not Available [facility] [address], [place], [address], 01/14/2022 14:35:10 01/15/20 22 01/14/2022 urina lysis panel , auto Unknown Analyte 5.0-8. 0 Not Available [facility] [address], [place], [address], 01/14/2022 14:35:10 01/15/20 22 01/14/2022 urina lysis panel , auto Unknown Analyte Negati ve Not Available [facility] [address], [place], [address], 01/14/2022 14:35:10 01/15/20 22 01/14/2022 urina lysis panel , auto Unknown Analyte Negati ve Not Available [facility] [address], [place], [address], 01/14/2022 14:35:10 01/15/20 22 01/14/2022 urina lysis panel , auto Unknown Analyte Negati ve Not Available Pending sale to [facility] [address], [place], [address], 01/14/2022 14:35:10 01/15/20 22 01/14/2022 urina lysis panel , auto Unknown Analyte Negati ve Not Available [facility] [address], [place], [address], 01/14/2022 14:35:10 01/15/20 22 01/14/2022 urina lysis panel , auto Unknown Analyte Negati ve Not Available [facility] [address], [place], [address], 01/14/2022 14:35:10 01/15/20 22 01/14/2022 urina lysis panel , auto Unknown Analyte Negati ve Not Available [facility] [address], [place], [address], 01/14/2022 14:35:10 01/15/20 22 01/14/2022 urina lysis panel , auto Unknown Analyte Normal Not Available [facility] [address], [place], [address], 01/14/2022 14:35:10 01/15/20 22 01/14/2022 urina lysis panel , auto Unknown Analyte Normal Not Available [facility] [address], [place], [address], 01/14/2022 14:35:10 01/15/20 22 01/14/2022 urina lysis panel , auto Unknown Analyte Negati ve Not Available [facility] [address], [place], [address], 01/14/2022 14:35:10 01/15/20 22 01/14/2022 urina lysis panel , auto Unknown Analyte Negati ve Not Available [facility] [address], [place], [address], 01/14/2022 14:35:10 01/15/20 22 01/14/2022 urina lysis panel , auto Unknown Analyte Normal Not Available [facility] [address], [place], [address], 01/14/2022 14:35:10 01/15/20 22 01/14/2022 urina lysis panel , auto Unknown Analyte Normal 1 mg/dl Not Available [facility] [address], [place], [address], 01/14/2022 14:35:10 01/15/20 22 01/14/2022 urina lysis panel , auto Unknown Analyte Negati ve Not Available [facility] [address], [place], [address], 01/14/2022 14:35:10 01/15/20 22 01/14/2022 urina lysis panel , auto Unknown Analyte Negati ve Not Available [facility] [address], [place], [address], 01/14/2022 14:35:10 01/15/20 22 01/14/2022 urina lysis panel , auto Unknown Analyte Negati ve Not Available [facility] [address], [place], [address], 01/14/2022 14:35:10 01/15/20 22 01/14/2022 urina lysis panel , auto Unknown Analyte Negati ve Not Available [facility] [address], [place], [address], 01/14/2022 14:35:10 06/08/20 19 06/08/2019 MRI, lumba r spine , w/wo contr ast [place] [facility] [address] [facility] [place] [address] Nikolay t Name: MINO holt : 947 Paticiro t 8 Orderi ng Provid er: ROBYN [...] ing 9 mm. 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 [...] is a broad- based disc bulge/ protru imn and mild endpla te spurri ng. There [...] strati on of [address] ([facility] [address]- 325-02 ), there is no abnorm al [...] Paulette barros MD on 019 1:39 PM [email or web address] [facility] Radiology [address], [address], 06/08/2019 14:46:00 09/01/20 19 09/01/2019 XR, lumbo sacra l spine , 2 or 3 view, bendi ng only [address] [place] [address] Nikolay holt Name: MINO holt : 947 Nikolay holt 8 Ivanna Garcia er: ROBYN [place] EXAM DATE: 2018 EXAM: [...] Xiao Costa MD on 2018 1:15 PM [email or web address] [facility] [address], [address], 09/21/2019 10:50:56 Result Notes Documentation Provider Name and Address Organization Details Recorded Time Mri, Lumbar Spine, W/wo Contrast : [address] [address] Patient Name: MINO HSU Patient : 1945 Patient Ordering Provider: SAV CARPENTER EXAM DATE: 06/08/2019 EXAM: MR LUMBAR SPINE W/WO CONTRAST HISTORY: 73-year-old male with chronic back and leg pain. The patient has had prior lumbar surgery. COMPARISON: MRI dated 05/04/2018 FINDINGS: The patient is status post laminectomies from L2-L3 through L4-L5. There is grade 1 anterior listhesis of L4 on L5 measuring 9 mm. There is minimal posterior listhesis of L2 on L3. There is no evidence of fracture. There is moderate anterior marginal osteophytic spurring. No pathologic lesion is identified in the lumbar spine. The conus medullaris is normal in appearance at the L2 level. T11-T12 through L1-L2: There are minimal disc bulges. There is no central canal stenosis. There is no neural foraminal stenosis. L2-L3: There is a broad-based disc bulge/protrusion and mild endplate spurring. There is no central canal stenosis. There is mild bilateral neural foraminal stenosis. L3-L4: There is a broad-based disc protrusion and mild endplate spurring. There is no central canal stenosis. There is moderate right and mild/moderate left neural foraminal stenosis. L4-L5: There is a broad-based disc protrusion extending into the neural foramina, mild endplate spurring, and moderate facet arthropathy. There is no central canal stenosis. There is moderate/severe bilateral neural foraminal stenosis. L5-S1: There is a broad-based disc bulge/protrusion and mild endplate spurring. There is mild facet arthropathy. There is no central canal stenosis. There is moderate right and mild/moderate left neural foraminal stenosis. After intravenous administration of 10 cc Gadavist ([facility] [address]77-373-15), there is no abnormal enhancement in the lumbar spine. IMPRESSION: 1. The patient is status post laminectomies from L2-L3 through L4-L5. 2. There is moderate/severe bilateral neural foraminal stenosis at L4-L5, moderate right and mild/moderate left neural foraminal narrowing at L3-L4, moderate right and mild/moderate left neural foraminal narrowing at L5-S1, and mild neural foraminal narrowing at L2-L3. 3. There are minimal changes from the prior MRI. Interpreted By: Bairon Drew MD CARPENTER MD [address] [place] [address], [address], [facility] 06/08/2019 14:46:00 Xr, Lumbosacral Spine, 2 Or 3 View, Bending Only : [address] [address] Patient Name: MINO HSU Patient : 1945 Patient Ordering Provider: SAV CARPENTER EXAM DATE: 09/01/2019 EXAM: XR LUMBAR SPINE FLEX/EXT ONLY CLINICAL INFORMATION: Back pain. IMAGES PROVIDED: Lateral views of the lumbar spine in flexion and extension. COMPARISON: None. FINDINGS: Vertebral body heights are normal. Multilevel disc space reduction is seen with anterior and lateral osteophytes. There is grade 2 anterolisthesis of L4 over L5 which measures 12 mm in flexion and 10 mm in extension. Degenerative changes are seen in the facet joints at multiple levels. No radiographic evidence of injury is noted. IMPRESSION: Degenerative changes of the lumbar spine. Alignment abnormality and instability at L4-L5 level. Interpreted By: Samm Costa MD CARPENTER MD [address] [place] [address], [address] 09/21/2019 10:50:56 Problems Name Problem SNOMED Code Status Onset Date Resolution Date Notes Provider Name and Address Organization Details Recorded Time Spondylol isthesis 684057576 Active 2015 From Automated Load;Provi [place]: Sav Carpenter;St [facility]: Active Not Available [facility] 6 06:47:50 Lumbosacr al radiculop athy 7046741 Active 2015 From Automated Load;[facility]vi [place]: Tiffani Carpenterel;St [facility]: Active Not Available [facility] 6 06:47:50 Problem Notes None recorded. Procedures Surgical History Date Name Laterality Status Provider Name and Address Organization Details Recorded Time 03/15/20 19 Post Void Residual; Ultrasound completed [facility] 03/15/2019 14:11:08 03/03/20 19 Post Void Residual; Ultrasound completed [facility] 03/03/2019 13:38:19 02/20/20 19 Post Void Residual; Ultrasound completed Dory Townsend [facility] 02/19/2019 15:23:08 02/10/20 19 CONTACT LASER VAPORIZATION, WITH TRANSURETHRAL RESECTION OF PROSTATE (SURG) completed Mery Cohen [facility] 02/10/2019 08:55:15 08/05/20 18 Lumbar Radiofrequency Ablation completed ENRIQUE FRENCH MD [address] [place] [address], [address], [facility] 08/05/2018 12:28:23 07/29/20 18 Lumbar Radiofrequency Ablation completed ENRIQUE FRENCH MD [address] [place] [address], [address], [facility] 07/29/2018 13:17:00 07/01/20 18 Lumbar Medial Branch Blocks completed ENRIQUE FRENCH MD [address] [place] [address], [address], [facility] 07/01/2018 14:24:01 08/14/20 11 Back Surgery completed [facility] 01/07/2017 14:39:50 Other completed [facility] 01/07/2017 14:38:38 Knee arthroscopy/surger y completed [facility] 01/07/2017 14:38:50 Other completed [facility] 01/07/2017 14:40:05 Imaging Results None recorded. Procedure Notes None recorded. Medical Equipment None Reported. Allergies Allergen ID Allergen Name Allergen Category Reaction Reaction Severity Criticality Documentation Date Start Date Code Code System Note Provider Name and Address Organization Details Recorded Time 917338 Substance with sulfonami de structure and antibacte rial mechanism of action (substanc e) medicatio n Not available Not available Not available 12/21/2018 83533 8003 SNOMED Toshia Ashvin [facility] 9 14:40:22 Medications Name Sig Start Date [...] Updated DateTime 01/14/2022 180.34 cm 29.3 kg/m2 32311.4 g Toshia Englishharry [facility] 01/14/2022 14:28:00 Date Recorded Body height Body mass index (BMI) Body weight Heart rate Systolic And Diastolic Provider Name and Address Organization Details Last Updated DateTime 03/29/2019 182.88 cm 27.1 kg/m2 22669.47 g 56 /min 97/61 mm[Hg] Robert Sharma [facility] 03/29/2019 12:27:27 Date Recorded Body height Provider Name an d Address Organization Details Last Updated DateTime 04/02/2019 182.88 cm Tajshelly Trinidad [facility] 04/02/2019 13:51:45 Date Recorded Body height Body mass index (BMI) Body weight Systolic And Diastolic Provider Name and Address Organization Details Last Updated DateTime 06/08/2019 182.88 cm 27.1 kg/m2 91985.47 g 100/70 mm[Hg] Lisseth Shaw [facility] 06/08/2019 13:53:24 Date Recorded Body height Body mass index (BMI) Body weight Systolic And Diastolic Provider Name and Address Organization Details Last Updated DateTime 09/01/2019 182.88 cm 27.1 kg/m2 34050.47 g 100/78 mm[Hg] Lisseth Shaw [facility] 09/01/2019 14:06:13 Social History Question Answer Notes LastModified by Organizat ion Details LastModified Time Tobacco Smoking Status Current Every Day Smoker Lisseth Shaw [facility] 01/07/2017 14:38:28 How Much Tobacco Do You Chew? None Information not available 12/21/2018 Marital Status Informatio n not available 12/21/2018 What Was The Date Of Your Most Recent Tobacco Screening? 03/29/2019 Information not available 11/02/2019 What Is Your Relationship Status? Information not available 01/14/2022 How Much Tobacco Do You Smoke? 1.5 PPD Information not available 12/21/2018 Sex: Unknown Functional Status Question Answer Note LastModified by Organization D etails LastModified Time What is your level of alcohol consumption? None Information not available 12/21/2018 What is your occupation? retired Information not available 12/21/2018 Mental Status None recorded. Family History Relationship [...] available 01/07 14:43:55 Medical History Condition Response Depression Y Anxiety Disorder Y Arthritis Y High Cholesterol Y False Teeth Y Past Encounters Encounter ID Performer Location Encounter Start Date Encounter Closed Date Diagnosis/Indication Diagnosis SNOMED-CT Code Diagnosis ICD10 Code Diagnosis Note [id number] SAV CARPENTER MD [facility] [address] [place] [address] 01/07/2017 13:52:17 01/09/2017 10:37:38 Spondylolisthesis 086242617 M43.10 Lumbosacra l radiculopathy 0081078 M54.16 [id number] DION GORDON PA-C [facility] [address] [place] [address] 03/30/2018 13:03:48 03/31/2018 10:53:27 Lumbar spondylolisthesis 0201894132 83485 M43.16 Mr. Hsu is s/p a prior [...] meantime. He is happy with this plan. [id number] EVAN PRADO PA-C [facility] [address] [facility] [place] [address] 05/04/2018 13:12:54 05/07/2018 15:06:01 Spondylolisthesis 894173190 M43.10 Lumbar MRI L4-5 spondyloli sthesis with [...] evaluation . Pt agrees with this plan. [id number] ENRIQUE FRENCH MD [facility] [address] [place] [address] 1 06/19/2018 13:24:59 06/29/2018 14:06:48 Long-term drug therapy 927962856 Z79.899 Lumbar spondylosis 04171 0009 M47.871 [id number] ENRIQUE FRENCH MD [facility] PROFESSIO NAL CHARGES [address] [place] [address], [place] [address] 07/01/2018 14:00:57 07/03/2018 14:46:43 Lumbar spondylosis 175255266 M47.816 [id number] ENRIQUE FRENCH MD [facility] CLOSED [address] [place] [address] 1 07/13/2018 13:08:25 07/13/2018 13:36:34 Lumbar spondylosis 286425024 M47.816 Long-term drug therapy 113376111 Z79.783 [id number] ENRIQUE FRENCH MD [facility] PROFESS[facility] NAL CHARGES [address] [place] [address], [address] [place] [address] 1 07/29/2018 12:07:47 07/31/2018 14:52:20 Lumbar spondylosis 993939586 M47.457 [id number] ENRIQUE FRENCH MD [facility] NAL CHARGES [address] [facility], [address] [place] [address] 08/05/2018 11:29:13 08/12/2018 07:19:53 Lumbar spondylosis 228297319 M47.026 [id number] ENRIQUE FRENCH MD [facility] CLOSED [address] [place] [address] 1 09/17/2018 10:20:49 09/17/2018 11:59:31 Lumbar spondylosis 433463474 M47.298 [id number] ENRIQUE FRENCH MD [facility] CLOSED [address] [place] [address] 11/23/2018 13:12:48 11/23/2018 13:51:18 Myofascial pain 794479448 M79.10 [id number] MD [facility] [address] [address] 0 12/21/2018 13:53:15 12/21/2018 14:52:29 Benign prostatic hyperplasia with outflow obstruction 316581257 N40.1 we will try alfuzosin. He apparently was treated with Bactrim for possible prostatiti s and took 2 doses this, considerab le somatic side effects. He will follow-up in one month and [place]. Increased frequency of urination [id number] R35.0 [id number] BAIRON ODOM MD [facility] [address] [facility] [address] 01/04/2019 13:10:11 01/04/2019 14:05:31 Benign prostatic hyperplasia with outflow obstruction [id number] N40.1 as he is not improve we will arrange for flexible local cystoscopy [id number] BAIRON ODOM MD SURGERY SCHEDULE [address] [place] [address] 01/13/2019 07:27:05 01/13/2019 07:28:46 [id number] MD STANLEY [facility] [address] [facility] [address] 0 02/19/2019 14:43:44 02/19/2019 15:29:45 Urinary tract infectious disease [id number] N39.0 Benign pro static hyperplasia with outflow obstruction [id number] N40.1 status post greenlight laser vaporizati on of prostate. We will observe him for now. He will follow-up in one month. [id number] BAIRON ODOM MD [facility] [address] [facility] [address] [address] [address] [place] [address] 03/03/2019 12:30:23 03/03/2019 14:14:31 Increased frequency of urination [id number] R35.0 Benign pro static hyperplasia with outflow obstruction [id number] N40.1 status post greenlight laser vaporizati on of prostate. We will observe him for now. He will follow-up in one month. [id number] MIGUELINA DOMINIQUE PA-C NEUROSURG KANDICE [facility]ANCO[facility] CLOSED [address] [address] [address] [facility] [place] [address] 03/09/2019 14:02:25 03/11/2019 14:15:00 Lumbar spondylolisthesis [id number] M43.16 Mr. Hsu presents to clinic at [...] agrees with the plan as stated above. [id number] BAIRON ODOM MD [facility] [address] [facility] [facility] [place] [address] 03/15/2019 13:27:52 03/15/2019 14:41:09 Benign prostatic hyperplasia with outflow obstruction [id number] N40.1 status post greenlight laser vaporizati on of prostate. We will observe him for now. He will follow-up in 3 weeks Increased frequency of urination [id number] R35.0 he was given instructio ns in written to hold oxybutynin once he starts Myrbetriq [id number] BAIRON ODOM MD [facility] [address] [facility] [place] [address] 03/29/2019 12:11:13 03/29/2019 13:27:34 Urinary tract infectious disease [id number] N39.0 Increased frequency of urination [id number] R35.0 plan as above Benign pro static hyperplasia with outflow obstruction [id number] N40.1 status post greenlight laser vaporizati on of prostate. [id number] BAIRON ODOM MD STANLEY [facility] [address] [facility] [place] [address] 04/02/2019 13:45:22 04/02/2019 13:47:22 Urinary tract infectious disease [id number] N39.0 [id number] SAV CARPENTER MD NEUROSURG [facility] CLOSED [address] [place] [address],[address] [place] [address] 06/08/2019 13:38:06 06/10/2019 09:06:31 Lumbar spondylolisthesis [id number] 59910 M43.16 -The patient returns today for routine [...] stenosis bilaterall y. MRI was performed at [facility]. He would potentiall y benefit from a L4-5 fusion. We will see him back with routine assessment into the 3 months. We feel strongly that the prostate issue should be resolved prior to considerin g any interventi on with the low back. There are no significan t issues with the low back that should be contributi ng to incontinen ce. [id number] SAV CARPENTER MD NEUROSURG KANDICE SAEED CLOSED [address] [place] [address] 09/01/2019 13:07:42 09/02/2019 15:23:03 Lumbar spondylolisthesis [id number] M43.16 -Patient returns today for routine evaluation [...] seen and evaluated attending physician, Dr. Carpenter. [id number] MD STANLEY [facility]NEY [facility] [address] [place] [address] 01/14/2022 14:05:54 01/14/2022 14:45:32 Neurogenic urinary bladder [id number] N31.9 Stable Primary er ectile dysfunction [id number] N52.9 we discussed that his reservoir may have high pressure due to encapsulat ion and that if indicated this could be reposition ed and perhaps replaced. At this point he will observed. Health Concerns Section Related Observation LastModified by Organization Detai ls LastModified Time None Recorded Concern Status LastModified by Organization Details LastModified Time None Recorded Advance Directives Directive None Recorded Payers Insurance Date Sequence Insurance Name Policy Number Policy Givens Covered Member ID Givens Member ID Guarantor Name 05/20/2018 2 [place]MEDIC[place]PPLE[place]) [id number] Mino Hsu [id number] Mino Hsu 08/09/2020 2 [place] [id number] Mino Hsu [id number] Mino Hsu 07/16/2022 1 [place] Mino Hsu [id number] Mino Hsu 07/16/2022 2 [place] [id number] Mino Hsu [id number] Mino Hsu Notes Date Note Type Note Provider Name and Address Organization Details Recorded Time 03/29/2019 text/html the patient is here now nearly 2 months following greenlight laser vaporization of prostate. Unfortunately still has severe frequency and urgency. He takes Azo ouekmr-jeq-rlytq. He is also been on oxybutynin chloride [...] will continue with oxybutynin chloride for now. BAIRON ODOM MD [facility] [place], [address], [facility] 03/29/2019 12:51:20 06/08/2019 text/html ROS as noted in the HPI The patient returns today for routine follow-up. Updated MRI of the lumbar spine was performed prior to his visit. History of a L2-5 lumbar laminectomy. He has severe bilateral foraminal stenosis at L2 4 5. He is pain across his back that will radiate into his legs. Intermittently affects the left or the right. States that legs are affected Approximately equal. His major concern continues to be incontinence related to his prostate. He has an appointment with Dr. Massey for further consultation and treatment SAV CARPENTER MD [facility] [place], [address], [facility] 06/08/2019 14:20:55 09/01/2019 text/html ROS as noted in the HPI Mr. Hsu presents to clinic for recheck of mechanical low [...] we last saw him. DION GORDON PA-C [facility] [place], [address], [facility] 09/01/2019 14:28:29 01/14/2022 text/html patient is you last seen by me in 2019 following greenlight laser exercises prostate. He has a long history of chronic back pathology unfortunately still had significant urinary frequency and urgency. He was tried on numerous anticholinergics. He also prior to that had a inflatable penile prosthesis placed by Dr. Delgado. In the interim he was evaluated in [facility] for his frequency and urgency and had what sounds to be a urodynamic study which he was told that his bladder with small placed on tamsulosin. His symptoms seem to improve he currently is receiving injection therapy to his back. His main complaint today is that his penile prosthesis spontaneously inflates with physical activity. BAIRON ODOM MD [address] [place], [address], [facility] 01/14/2022 14:49:26
--- OUTSIDE RECORDS SUMMARY | 2025-04-08 15:59 | XMS_ITS | Encounter Summary ---
Author Organization [facility] Address [address] [place] [address] Care Team Providers Care Production Analyst Name Role Phone Cheko Heredia MD Primary [...] Industry Job Start Date Job End Date [employer] Not on file Not on file Not on file documented as of this encounter Plan of Treatment Upcoming Encounters Date Type Department Care Team (Late st Contact Info) Description 06/13/2025 3:00 PM EDT Office Visit [facility] [address] [facility] [place] [address] Cheko Heredia MD [address] [place] [place] [address] 12/12/2025 2:15 PM EDT Office Visit [facility] [address] [place] [phone] Cheko Heredia MD [address] [place] [address] Scheduled Procedures Name Priority Associated Diagnoses Date/Ti me ABLATION A-FIB Atrial fibrillation with RVR Cardiomyopathy, dilated, nonischemic Essential hypertension documented as of this encounter Visit Diagnoses Not on filedocumented in this encounter Care Teams Production Analyst Relationship Specialty Start Date End Date Cheko Heredia MD [address] [place] [address] PCP - General Family Medicine 01/10/22 documented as of this encounter
--- OUTSIDE RECORDS SUMMARY | 2025-04-08 15:59 | XMS_ITS | Encounter Summary ---
[facility] Address [address] [place] [address] Care Team Providers Care Client Care Specialist Name Role Phone Cheko Heredia MD Primary Care Provider + Reason for Visit * Reason Onset Date Comments Med Refill 02/08/2025 Encounter Details Date Type Department Care Team (Late st Contact Info) Description 02/08/2025 Refill [facility] [address] [place] [address] Cheko Heredia MD [address] [place] [address] Chronic pain syndrome; Spondylosis of [...] Industry Job Start Date Job End Date [employer] Not on file Not on file Not on file documented as of this encounter Miscellaneous Notes * Telephone Encounter - Susanne Nelson RegSched Rep - 02/08/2025 3:30 PM EDT Caller: HsuMino noe Relationship: Self Best call back number: [phone] Requested Prescriptions: Requested Prescriptions Pending Prescriptions Disp Refills oxyCODONE-acetaminophen (PERCOCET) 5-325 MG per tablet 90 tablet 0 Sig: Take 1 tablet by mouth Every 8 (Eight) Hours As Needed for Severe Pain. Pharmacy where request should be sent: [facility] [place] - [address] [facility] [phone] [facility] [phone] Last office visit with prescribing clinician: 12/10/2024 [...] 3:00 PM EDT Office Visit [facility] [address] [place] [address] Cheko Heredia MD [address] [place] [address] 12/12/2025 2:15 PM EDT Office Visit [facility] [address] [place] [address] Cheko Heredia MD [address] [place] [address] Scheduled Procedures Name Priority Associated Diagnoses Date/Ti me ABLATION A-FIB Atrial fibrillation with RVR Cardiomyopathy, dilated, nonischemic Essential hypertension documented as of this encounter Visit Diagnoses Diagnosis Chronic pain syndrome Spondylosis of lumbar region without myelopathy or radiculopathy documented in this encounter Care Teams Client Care Specialist Relationship Specialty Start Date End Date Cheko Heredia MD [address] [facility] [place] [address] PCP - General Family Medicine 01/10/22 documented as of this encounter
--- OUTSIDE RECORDS SUMMARY | 2025-04-08 15:59 | XMS_ITS | Encounter Summary ---
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 - [employer] Social History Tobacco Use [...] EDT Office Visit [facility] [address] [address] Cheko Heredia MD [address] [place] [address] 12/12/2025 2:15 PM EDT Office Visit [facility] [address] [place] [address] Cheko Heredia MD [address] [place] [address] Scheduled Procedures Name Priority Associated Diagnoses Date/Ti me ABLATION A-FIB Atrial fibrillation with RVR Cardiomyopathy, dilated, nonischemic Essential hypertension documented as of this encounter Visit Diagnoses Not on filedocumented in this encounter Care Teams Kettle Tender Relationship Specialty Start Date End Date Cheko Heredia MD [address] [facility] [place] [address] PCP - General Family Medicine 01/10/22 documented as of this encounter
--- OUTSIDE RECORDS SUMMARY | 2025-04-08 16:00 | XMS_ITS | Encounter Summary ---
Author Organization [facility] [place] [address] Care Team Providers Care Adjunct Psychology Professor Name Role Phone Unavailable Primary Care Provider Unavailabl e Encounter Details Date Type Department Care Team (Late st Contact Info) Description 08/08/2021 Orders Only [facility] Edg [address] [facility] [address] [place] [address] Edis Garza MD [address] [place], [place] [id number] Social History Tobacco Use Types Packs/Day Years [...] Garza MD CARDIAC CATH ORDERABLES Final Result [facility] [address] [place] [id number] documented in this encounter Visit Diagnoses Not on filedocumented in this encounter Additional Health Concerns Assessment Noted Time A fall risk assessment has been complete d for the patient 08/03/2021 2:11 PM EST documented as of this encounter
--- OUTSIDE RECORDS SUMMARY | 2025-04-08 16:00 | XMS_ITS | Encounter Summary ---
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 - [employer] Social History Tobacco Use [...] [facility] [address] [place] [address] Cheko Heredia MD [address] [place] [address] 12/12/2025 2:15 PM EDT Office Visit [facility] [address] [place] [address] Cheko Heredia MD [address] [place] [address] Scheduled Procedures Name Priority Associated Diagnoses Date/Ti me ABLATION A-FIB Atrial fibrillation with RVR Cardiomyopathy, dilated, nonischemic Essential hypertension documented as of this encounter Visit Diagnoses Not on filedocumented in this encounter Care Teams Final Cleaner Relationship Specialty Start Date End Date Cheko Heredia MD [address] [place] [address] PCP - General Family Medicine 01/10/22 documented as of this encounter
--- OUTSIDE RECORDS SUMMARY | 2025-04-08 16:00 | XMS_ITS | Encounter Summary ---
Author Organization [employer] ([place], [place], [place], [place]) Address [address] [place] [address] Care Team Providers Care Social Media Assistant Name Role Phone Unavailable Primary Care Provider Unavailabl e Encounter Details Date Type Department Care Team (Late st Contact Info) Description 02/09/2019 Transcribed Document [facility] Family Medicine [facility] [address] ProviderSoham [place] [address] Social History Tobacco Use Types [...] Soham ProviderMD - 02/09/2019 8:33 AM CDT [facility] Main OR IntraOp Summary Primary Physician: EZ ODOM MD-URO Finalized Date/Time: 02/10/19 10:14:52 Pt. Name: MINO BROWN Rudi /Sex: 1945 Male Med Rec #: [id number] Physician: EZ ODOM MD-URO Financial #: [id number] Pt. Type: O Room/Bed: /4 Admit/Disch: 02/09/19 06:12:00 - 02/09/19 10:22:00 Institution: [facility] IntraOp Case Attendance Entry 1 Entry 2 Entry 3 Case Attendee EZ ODOM CORNEA, MIHAELA, MD BREITIGAN, STEPHEN, CRNA MD-URO Role Performed Surgeon/Proceduralist, Anesthesiologist of AUTOMOTIVE PAINTER HELPER/Nurse Natural Resources Professor First Record Time In 02/09/19 08:17:00 02/09/19 [...] HERO DOUGLAS MD Madden, Jerrild Role Performed Mud Mill Tender, First Resident Laser Medical Malpractice Paralegal Time In 02/09/19 08:17:00 02/09/19 08:17:00 02/09/19 [...] Modified By: Swapna Vasquez RN 02/09/19 09:27:39 [facility] IntraOp Case Attendance Audit 02/09/19 09:27:[address]: KARINA Modifier: KARINA 1 <+> Time Out [...] 7 <*> Procedure Prostate Green Light Laser [facility] IntraOp Case Times Entry 1 Patient In Room Time 02/09/19 08:17:00 Out Room Time 02/09/19 09:27:00 Anesthesia Start Time 02/09/19 08:17:00 Stop Time 02/09/19 09:27:00 Surgery / Procedure Times Start Time 02/09/19 08:33:00 Stop Time 02/09/19 09:16:00 Last Modified By: Swapna Vasquez RN 02/09/19 09:27:27 [facility] IntraOp Case Times Audit 02/09/19 09:27:[address]: KARINA Modifier: POFFJAN <+> 1 Out Room Time <+> 1 Stop Time 02/09/19 09:16:[address]: MANUELFFKULWINDER Modifier: POFFJAN <+> 1 Stop Time [facility] IntraOp Communication Entry 1 Communication To Family/Significant other Comment Start Communication By Swapna Vasquez RN Date and Time 02/09/19 08:33:00 Last Modified By: Swapna Vasquez RN 02/09/19 08:44:49 [facility] IntraOp Delays Entry 1 Delay Reason Surgeon late - no reason Duration 17 Minute(s) Comment surgeon at bedside at 0810 Last Modified By: Swapna Vasquez RN 02/09/19 08:37:30 [facility] IntraOp Departure from OR Entry 1 Integumentary Assessment Integumentary WDL Assessment WDL Transfer/Handoff Transfer to PACU Phase I Handoff Method Phone call Handoff Reported to JEFFERSON MATHUR RN Post-op Transport Stretcher/Gurney Via Patient Transport ALEX CORDERO, Accompanied by CHANDA MOLINA JOHN, MD Last Modified By: Swapna Vasquez RN 02/09/19 09:27:52 [facility] IntraOp Departure from OR Audit 02/09/19 09:27:[address]: POFFJAN Modifier: POFFJAN <+> 1 Handoff Reported to 02/09/19 09:19:[address]: POFFJAN Modifier: POFFJAN <+> 1 Patient Transport Accompanied by [facility] IntraOp Fire Risk Assessment Entry 1 [...] Modified By: Swapna Vasquez RN 02/09/19 08:41:29 [facility] IntraOp General Case Document Scanner 1 Case Information OR OR 03 [facility] Case Level 1 Room Verified Yes Wound Class II - Clean-Contaminated Specialty SN Urology Anesthesia Type General ASA Class 3 Diagnosis 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 Postop Same As Preop Yes 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 Last Modified By: Swapna Vasquez RN 02/09/19 09:00:23 [facility] IntraOp General Case Data Audit 02/09/19 09:00:[address]: MANUELLEWISKULWINDER Modifier: POEDSON <+> 1 Postop Same As Preop <+> 1 Preop Diagnosis <+> 1 Postop Diagnosis [facility] IntraOp Intraoperative Assessment Entry 1 Handoff [...] Modified By: Swapna Vasquez RN 02/09/19 08:43:17 [facility] IntraOp Intraoperative Equipment Entry 1 Type Monitoring Equipment Intraop Monitoring Electrocardiogram Three lead placement (ECG) Electrode Placement Blood Pressure Non-Invasive BP Device Source Blood Pressure Arm, right upper Location Pulse Oximeter Hand, left Probe Site Antiembolic Devices Antiembolic Devices Sequential compression device, knee high Antiembolic Device Bilateral Location Antiembolic Device [id number] ID Number Scopes Photo/Video Documentation Photo No Video No Intraop Equipment Sequential compression Comment devices on and in operation prior to induction of anesthesia. Last Modified By: Swapna Vasquez RN 02/09/19 08:44:16 [facility] IntraOp Medication Admin Entry 1 Entry 2 Entry 3 Medication/Irrigant ZIGGY IRR 0.9% NACL B&O 16A Suppository - ZIGGY IRR NACL 0.9PCT 1000ML --[id number] Combo Med List Time Administered 02/09/19 08:33:00 [...] Medication/Irrigant lidocaine 2% urojet 10ml jelly - [id number] Combo Med List Time Administered 02/09/19 09:14:00 Route of Local, urethra Administration Dose Dose 10 Unit of Measure ml Volume Administered By HERO ARMAS MD Procedure Irrigation Irrigant Volume In Irrigant Volume Out Last Modified By: Swapna Vasquez RN 02/09/19 09:18:40 [facility] IntraOp Medication Admin Audit 02/09/19 09:18:[address]: KARINA Modifier: KARINA 1 <*> Administered By EZ ODOM MD-URO 1 <+> Irrigant Volume In 1 <+> Irrigant Volume Out 2 <*> Medication/Irrigant B&O 16A Suppository - [id number] <+> Dose 2 <+> Time Administered 3 <*> Medication/Irrigant ZIGGY IRR NACL 0.9PCT 3000ML-[id number] 3 <+> Irrigant Volume In 3 <+> Irrigant Volume Out 4 <*> Medication/Irrigant lidocaine 2% urojet 10ml jelly - [id number] 4 <+> Time Administered 02/09/19 08:47:[address]: KARINA Modifier: KARINA <+> 4 Medication/Irrigant <+> 4 Route of Administration <+> 4 Administered By <+> 4 Dose <+> 4 Unit of Measure [facility] IntraOp Patient Positioning Entry 1 Procedure [...] Modified By: Swapna Vasquez RN 02/09/19 08:41:05 [facility] IntraOp Sign In Entry 1 Patient, [...] Modified By: Swapna Vasquez RN 02/09/19 08:37:40 [facility] IntraOp Sign Out Entry 1 RN [...] Modified By: Swapna Vasquez RN 02/09/19 09:27:35 [facility] IntraOp Sign Out Audit 02/09/19 09:27:[address]: KARINA Modifier: KARINA <+> 1 RN Sign Out Signature Date/Time 02/09/19 09:18:[address]: KARINA Modifier: KARINA <+> 1 Urinary Catheter Documented in IView [facility] IntraOp Skin Prep Entry 1 Procedure Prostate Green Light Laser Prescribed Yes Pre-Surgical Prep Completed Prep Area Genitalia Intraop Prep Integumentary WDL Assessment WDL Prep Agents Betadine solution Prep by Swapna Vasquez RN Hair Removal Last Modified By: Swapna Vasquez RN 02/09/19 08:43:49 [facility] IntraOp Surgical Procedures Entry 1 Procedure Prostate Green Light Laser Additional GREENLIGHT LASER OF Procedure PROSTATE Description Primary Procedure Yes Primary Surgeon EZ ODOM MD-URO Start 02/09/19 08:33:00 Stop 02/09/19 09:16:00 Anesthesia Type General Specialty SN Urology Wound Class II - Clean-Contaminated Last Modified By: Swapna Vasquez RN 02/09/19 09:16:11 [facility] IntraOp Surgical Procedures Audit 02/09/19 09:16:[address]: KARINA Modifier: KARINA <+> 1 Stop [facility] IntraOp Temp Regulation Devices Entry 1 Temp Regulation Temperature Warm blankets, Room Regulation Device temperature Temperature Upper body Regulation Site Temperature Swapna Vasquez RN Regulation Device Applied by Temperature Patient's temperature Regulation Comment monitored by anesthesia provider. Forced air warming device settings controlled by anesthesia provider. Last Modified By: Swapna Vasquez RN 02/09/19 08:44:27 [facility] IntraOP Time Out Entry 1 Procedure [...] Swapna Vasquez RN 02/09/19 09:28 [facility] DELIA HONAG 02/10/19 10:14 Unfinalized History Date/Time Username Reason for Unfinalizing Freetext Reason for Unfinalizing 02/10/19 10:14 EMMA Correct Billing documented in this encounter Plan of Treatment Not on file documented as of this encounter Visit Diagnoses Not on filedocumented in this encounter
--- OUTSIDE RECORDS SUMMARY | 2025-04-08 16:00 | XMS_ITS | Encounter Summary ---
Author Organization [employer] ([place], [place], [place], [place]) Address [address] [place] [address] Care Team Providers Care Scrap Burner Name Role Phone Unavailable Primary Care Provider Unavailabl e Encounter Details Date Type Department Care Team (Late st Contact Info) Description 02/09/2019 Transcribed Document [facility] [place] Family Medicine [facility] [place] [address] ProviderSoham MD [facility] [place] [address] Social History Tobacco Use Types [...] INTRAVENOUS FLUIDS: See Anesthesia record. DRAINS: A 20-Thai coude catheter with 30 mL of sterile water in the balloon. OPERATIVE INDICATIONS: Mr. Hsu is a 73-year-old gentleman with a history of lower urinary tract symptoms, which have been refractory to five 1-nyhig-haokozpjl inhibitors, in addition the patient has been [...] the case. 4. Successful placement of a 20-Thai coude catheter with 30 mL of sterile [...] sheath. We therefore dilated the patient from 24-Thai to 28-Thai utilizing male urethral sounds due to the patient having undergone a previous inflatable penile prosthesis placement. We were very elena and we were very gentle in our dilation and this was noted to be atraumatic as there was no urethral bleeding during this. We then successfully introduced the 28-Thai continuous-flow resectoscope sheath again with the inner [...] Uro-Jet for local anesthesia and inserted a 20-Thai two-way coude catheter with 30 mL sterile [...] Trans: 02/09/2019 12:16:31 CC1: Bairon Galvez M.D. Electronically signed by Bhupinder Cordova Conversion Sales And Support Center Agent Amyner at 12/30/2022 9:49 AM CDT documented in this encounter Plan of Treatment Not on file documented as of this encounter Visit Diagnoses Not on filedocumented in this encounter
--- OUTSIDE RECORDS SUMMARY | 2025-04-08 16:00 | XMS_ITS | Encounter Summary ---
Author Organization [employer] ([place], [place], [place], [place]) Address [address] [place] [address] Care Team Providers Care Cad Administrator Name Role Phone Unavailable Primary Care Provider Unavailabl e Encounter Details Date Type Department Care Team (Late st Contact Info) Description 02/09/2019 Transcribed Document [facility] [place] Family Medicine [facility] [place] [address] ProviderSoham MD [address] [place] [address] Social History Tobacco Use Types [...] 1945 Associated Diagnoses: None Author: SACHIN BERNAL, MANAGER SMALL BUSINESS Chief Complaint BPH Review of Systems ROS [...] Stented coronary artery x3 / SNOMED CT 5115318584 / Confirmed Pneumonia / SNOMED CT 766693840 / Confirmed Hyperlipidemia / SNOMED CT 30797650 / Confirmed High blood pressure / SNOMED CT 86574969 / Confirmed Hemorrhoids / SNOMED CT 614423720 / Confirmed Hard of hearing, left ear / SNOMED CT 018934059 / Confirmed Disorder of prostate / SNOMED CT 47268458 / Confirmed Cataract / SNOMED CT 349257957 / Confirmed Back pain / SNOMED CT 8898217518 / Confirmed A-fib / SNOMED CT 51643374 / Confirmed, Active Problems (10) A-fib Back [...] data available. Impression and Plan Condition: Stable. Electronically signed by Bhupinder Cordova Conversion Precision Optics Technician Cerner at 12/30/2022 9:47 AM CDT documented in this encounter Plan of Treatment Not on file documented as of this encounter Visit Diagnoses Not on filedocumented in this encounter
--- OUTSIDE RECORDS SUMMARY | 2025-04-08 16:00 | XMS_ITS | Encounter Summary ---
Author Organization [employer] ([place], [place], [place], [place]) Address [address] [place] [address] Care Team Providers Care Loan Review Analyst Name Role Phone Unavailable Primary Care Provider Unavailabl e Encounter Details Date Type Department Care Team (Late st Contact Info) Description 02/09/2019 Transcribed Document [facility] [place] [address] [place] [address] ProviderSoham MD [address] [place] [address] Social History Tobacco Use Types [...] and water are not available, use hand poly operator. ? Change your dressing as told by [...] or a bad smell. Medicines ??? Take omgk-clw-lkhzykl and prescription medicines only as told by [...] 12/22/2016 Document Revised: 04/09/2018 Document Reviewed: 12/22/2016 [employer] Interactive Patient Education ? 2019 [employer] Urology Indwelling Urinary Catheter Care, Adult [...] on each side. Do this in a pnzqx-ye-xoxy direction. ? If you are male: ? [...] and water are not available, use hand poly operator. ??? Always make sure there are no [...] 09/01/2006 Document Revised: 04/17/2018 Document Reviewed: 04/17/2018 [employer] Interactive Patient Education ? 2019 [employer] Prostate Laser Surgery, Care After This [...] clear or pale yellow. Medicines ??? Take cwzz-ukv-unurhqg and prescription medicines, including stool softeners, only [...] 09/01/2006 Document Revised: 04/18/2017 Document Reviewed: 04/18/2017 [employer] Interactive Patient Education ? 2019 [employer] documented in this encounter Plan of Treatment Not on file documented as of this encounter Visit Diagnoses Not on filedocumented in this encounter
--- OUTSIDE RECORDS SUMMARY | 2025-04-08 16:00 | XMS_ITS | Encounter Summary ---
Author Organization [employer] ([place], [place], [place], [place]) Address [address] [place] [address] Care Team Providers Care Media Relations Manager Name Role Phone Unavailable Primary Care Provider Unavailabl e Encounter Details Date Type Department Care Team (Late st Contact Info) Description 02/09/2019 Transcribed Document [facility] [place] [facility] [place] [address] ProviderSoham MD [facility] [place] [address] Social History Tobacco Use Types [...] Soham ProviderMD - 02/09/2019 8:33 AM CDT [facility] Main OR Preop Summary Primary Physician: EZ ODOM MD-URO Finalized Date/Time: 02/09/19 09:15:02 Pt. Name: MINO HSU /Sex: 1945 Male Med Rec #: [id number] Physician: EZ ODOM MD-URO Financial #: [id number] Pt. Type: O Room/Bed: /4 Admit/Disch: 02/09/19 06:12:00 - Institution: [facility] PreOp Case Times Entry 1 In Preop 02/09/19 06:27:00 Ready for Holding n/a Room Patient Ready for 02/09/19 07:23:00 Surgery Patient Out of Preop 02/09/19 08:15:00 Patient Out of n/a Holding Room Last Modified By: Reisner, Vielka, RN 02/09/19 09:15:01 [facility] PreOp Case Times Audit 02/09/19 09:15:01 Clinical Informatics Specialist: GIBRAN Modifier: REISNERK <+> 1 Patient Out of Preop 02/09/19 07:31:13 Clinical Informatics Specialist: GIBRAN Modifier: REISNERK <+> 1 In Preop Finalized By: Vielka Dillon, RN Document Signatures Signed By: Vielka Dillon RN 02/09/19 09:15 Electronically signed by Tasha [facility] Conversion Salesperson Wigs Cerner at 12/30/2022 10:00 AM CDT documented in this encounter Plan of Treatment Not on file documented as of this encounter Visit Diagnoses Not on filedocumented in this encounter
--- OUTSIDE RECORDS SUMMARY | 2025-04-08 16:00 | XMS_ITS | Encounter Summary ---
Author Organization [employer] ([place], [place], [place], [place]) Address [address] [place] [address] Care Team Providers Care Processing Engineer Name Role Phone Unavailable Primary Care Provider Unavailabl e Encounter Details Date Type Department Care Team (Late st Contact Info) Description 02/09/2019 Transcribed Document [facility] [place] [facility] [place] [address] ProviderSoham MD [facility] [place] [address] Social History Tobacco Use Types [...] HSU /Sex: 1945 Male Med Rec #: [id number] Physician: EZ ODOM MD-URO Financial #: [id number] Pt. Type: O Room/Bed: /4 Admit/Disch: 02/09/19 06:12:00 - Institution: [facility] Main OR PACU I Case Times Entry 1 In PACU I 02/09/19 09:28:00 Ready for PACU 02/09/19 10:32:00 Discharge Discharge from PACU 02/09/19 10:32:00 I Last Modified By: SONDRAVERÓNICA RN 02/09/19 10:42:24 [facility] Main OR PACU I Case Times Audit 02/09/19 10:42:24 Quarter Backer: [id number] Modifier: [id number] <+> 1 Ready for PACU Discharge <+> 1 Discharge from PACU I Finalized By: VERÓNICA AMARO RN Document Signatures Signed By: VERÓNICA AMARO RN 02/09/19 10:42 Electronically signed by Bhupinder Cordova Conversion Classification And Treatment Director Cerner at 12/30/2022 9:52 AM CDT documented in this encounter Plan of Treatment Not on file documented as of this encounter Visit Diagnoses Not on filedocumented in this encounter
--- OUTSIDE RECORDS SUMMARY | 2025-04-08 16:00 | XMS_ITS | Encounter Summary ---
[facility] Address [address] [place] [address] Care Team Providers Care Manager Environmental Services Name Role Phone Cheko Heredia MD Primary Care Provider + Encounter Details Date Type Department Care Team (Late st Contact Info) Description 10/24/2014 External CPT II [employer] SUPER[employer] [facility] [employer] Social History Tobacco Use [...] Description 06/13/2025 3:00 PM EDT Office Visit [facility] [address] [place] [address] Cheko Heredia MD [address] [place] [address] 12/12/2025 2:15 PM EDT Office Visit [facility] [address] [place] [address] Cheko Heredia MD [address] [place] [address] Scheduled Procedures Name Priority Associated Diagnoses Date/Ti me ABLATION A-FIB Atrial fibrillation with RVR Cardiomyopathy, dilated, nonischemic Essential hypertension documented as of this encounter Visit Diagnoses Not on filedocumented in this encounter Care Teams Manager Environmental Services Relationship Specialty Start Date End Date Cheko Heredia MD [address] [place] [address] PCP - General Family Medicine 01/10/22 documented as of this encounter
--- OUTSIDE RECORDS SUMMARY | 2025-04-08 16:00 | XMS_ITS | Clinical Summary ---
Author Organization [employer] ([place], [place], [place], [place]) Address [address] [place] [address] Care Team Providers Care Telegraph Plant Maintainer Name Role Phone Unavailable Primary Care Provider [...]
--- OUTSIDE RECORDS SUMMARY | 2025-04-08 16:00 | XMS_ITS | Encounter Summary ---
Author Organization [place] [address] Care Team Providers Care Foundation Assistant Name Role Phone Unavailable Primary Care Provider Unavailabl e Reason for Visit * Reason Onset Date Comments Other 04/04/2025 Encounter Details Date Type Department Care Team (Late st Contact Info) Description 04/04/2025 Telephone Structural Hrt/Valve [address] [facility] [address] [place] [id number] Renetta Conklin RN Other Social History Tobacco [...]
--- OUTSIDE RECORDS SUMMARY | 2025-04-08 16:00 | XMS_ITS | Referral Summary ---
Author Organization [employer] ([place], [place], [place], [place]) Address [address] [place] [address] Care Team Providers Care Restaurant Server Name Role Phone Unavailable Primary Care Provider [...]
--- OUTSIDE RECORDS SUMMARY | 2025-04-08 16:00 | XMS_ITS | Encounter Summary ---
Author Organization [employer] ([place], [place], [place], [place]) Address [address] [place] [address] Care Team Providers Care Furniture Repairer Name Role Phone Unavailable Primary Care Provider Unavailabl e Encounter Details Date Type Department Care Team (Late st Contact Info) Description 02/09/2019 Transcribed Document [facility] [place] Family Medicine [facility] [place] [address] ProviderSoham MD [facility] [place] [address] Social History Tobacco Use Types [...] Soham ProviderMD - 02/09/2019 8:33 AM CDT [facility] Main OR PostOp Summary Primary Physician: EZ ODOM MD-URO Finalized Date/Time: 02/09/19 12:22:42 Pt. Name: MINO HSU /Sex: 1945 Male Med Rec #: [id number] Physician: EZ ODOM MD-URO Financial #: [id number] Pt. Type: O Room/Bed: /4 Admit/Disch: 02/09/19 06:12:00 - Institution: [facility] Main OR PostOp Case Times Entry 1 In PACU II 02/09/19 10:36:00 Ready for PACU II 02/09/19 11:15:00 Discharge Discharge from PACU 02/09/19 12:22:00 II Last Modified By: EMELY HINSON, ERIK 02/09/19 12:22:27 [facility] Main OR PostOp Case Times Audit 02/09/19 12:22:27 Color Checker: IESHA Modifier: IESHA 1 <*> Ready for PACU II Discharge 02/09/19 11:34:00 1 <+> Discharge from PACU II Finalized By: EMELY HINSON RN Document Signatures Signed By: EMELY HINSON RN 02/09/19 12:22 Electronically signed by Tasha [facility] Conversion Technology Resource Teacher Cerner at 12/30/2022 9:37 AM CDT documented in this encounter Plan of Treatment Not on file documented as of this encounter Visit Diagnoses Not on filedocumented in this encounter
--- OUTSIDE RECORDS SUMMARY | 2025-04-08 16:00 | XMS_ITS | Clinical Summary ---
Author Organization [facility] Address [address] [facility] [address] [place] [address] Phone Care Team Providers Care Signals Collector/Analyst Name Role Phone Unavailable Primary Care Provider [...] (08/06/2021): Added automatically from request for surgery [id number] Paroxysmal atrial fibrillation 07/27/2021 Assessment & Plan [...] Team Description 04/04/2025 Telephone Structural Hrt/Valve [address] [facility] [address] [place] [address] Renetta Conklin RN Other 03/30/2025 1:30 PM EDT Office Visit [facility] [address] [facility] [address] [place] [address] Edis Garza MD Atrial fibrillation [...] Depression Anxiety Hypertension Systolic HF (heart failure) ([facility]) 11/01/2016 Echocardiogram 08/22/2016: EF 30%, moderate MR, mild pulmonary hypertension Cardiomyopathy, dilated, non ischemic (HCC) 10/17/2016 Pleural effusion 09/01/2016 GERD (gastroesophageal reflux disease) Carotid artery stenosis 01/30/2016 1. Carot id ultrasound, 06/06/2015, suggests total occlusion involving the right internal carotid artery with 50% to 69% occlusion to the left internal carotid artery. Coronary artery disease invo lving [place] coronary artery of [place] heart without angina pectoris 01/30/2016 Hyperlipemia Arthritis [...] mg/dL 08/14/2021 8:44 AM EST [email or web address] Comment: < 200 Desirable 200 - 239 Borderline High >= 240 High Triglyceride 148 <150 mg/dL 08/14/2021 8:44 AM EST [email or web address] Comment: < 150 Normal 150 - 199 Borderline High 200 - 499 High >= 500 Very High HDL 41 >=40 mg/dL 08/14/2021 8:44 AM EST [email or web address] Comment: > 60 Optimal 40 - 60 Acceptable < 40 Low LDL Calculated 89 <100 mg/dL 08/14/2021 8:44 AM EST [email or web address] Comment: < 100 Optimal 100 - 129 Near or above optimal 130 - 159 Borderline High 160 - 189 High >= 190 Very High Non-HDL-C Calculated 115 <=129 mg/dL 08/14/2021 8:44 AM EST [email or web address] Comment: <130 Desirable 130-159 Above Desirable 160-189 Borderline High 190-219 High >= 220 Very High Fasting Specimen? 021 8:44 AM EST [email or web address] Blood VENOUS BLOOD / Unknown Venipuncture / Unknown 08/14/2021 6:08 AM EST 08/14/2021 6:19 AM EST us Eliezer Andujar MD CHEMISTRY ORDERABLES Final Resul t [email or web address] [address] [facility] , [place] [address] * (ABNORMAL) BASIC METABOLIC PANEL (08/14/2021 6:08 AM EST) Sodium 141 136 - 145 mmol/L 08/14/2021 6:55 AM EST [email or web address] Potassium 4.0 3.5 - 5.0 mmol/L 08/14/2021 6:55 AM EST [email or web address] Chloride 105 98 - 107 mmol/L 08/14/2021 6:55 AM EST [email or web address] Total CO2 28 22 - 29 mmol/L 08/14/2021 6:55 AM EST [facility] Anion Gap 8 7 - 16 mmol/L 08/14/2021 6:55 AM EST [facility], [facility] Calcium 9.3 8.8 - 10.4 mg/dL 08/14/2021 6:55 AM EST [facility] Glucose Lvl 123(H) 82 - 100 mg/dL 08/14/2021 6:55 AM EST [facility] BUN 23 8 - 23 mg/dL 08/14/2021 6:55 AM EST [facility] Creatinine 1.13 0.67 - 1.30 mg/dL 08/14/2021 6:55 AM EST [facility] eGFR (CKD-EPIcr 2020) 68 >=60 mL/min/1.7 3 m2 08/14/2021 6:55 AM EST [facility] Comment:Estimated GFR was ca lculated using the CKD-EPIcr (2020) equation refit without race. The equation is recommended by the National Kidney Foundation - [place] [employer] of Nephrology Task Force. Blood VENOUS BLOOD / Unknown Venipuncture / Unknown 08/14/2021 6:08 AM EST 08/14/2021 6:19 AM EST us Skip Jimenez) Belen SUTTON CHEMISTRY ORDER ZORAIDA Final Result [facility], [facility] [address] [facility] [facility], [address] [place] [id number] [facility] [address] [place] [address] * (ABNORMAL) HEMOGLOBIN A1C (08/13/2021 6:31 AM EST) Hgb A1C 6.5(H) 4.2 - 5.6 % 08/13/2021 7:17 AM EST [facility] Est. Avg Glucose 140 mg/dL 08/13/2021 7:17 AM EST [facility], [facility] Blood VENOUS BLOOD / Unknown Venipuncture / Unknown 08/13/2021 6:31 AM EST 08/13/2021 6:43 AM EST Narrative [facility], [facility] - 08/13/2021 7:17 AM EST REFERENCE RANGE: Normal: 4.0-5.6% Pre-diabetes: 5.7-6.4% Provisional diagnosis of diabetes: >6.4% Hgb F>10% and anything which shortens red cell survival, such as hemolytic anemia, or unstable hemoglobin variants such as HbSS, HbSC, or HbCC, will lower the HbA1c value associated with a given level of glycemic control. Skip Jimenez) Belen SUTTON CHEMISTRY ORDER ZORAIDA Final Result [facility] [address] [facility] , [place] [address] from Last 3 Months or Most Recently Relevant to Health Maintenance Insurance MEDICARE SUPPLEMENT [place]ICARE [place] B [place]ARE [place] A [place] B MEDIC[place]MENT Advance Directives For more information, please contact: [phone] * Full Code (Latest Code Status on File) Date Activated Date Inactivated Comments 08/12/2021 8:49 PM 08/14/2021 8:54 PM
--- NOTE | 2025-04-08 16:06 | PC.NURSE ---
Pt is currently resting in bed. Has c/o cough, soa and discomfort to his chest this shift. Temp has increased this shift. Pt has also had an elevated HR. New orders received and carried out. Pt has had a good urine output via urinal and BR. Has ambulated well with standby assist. Appetite has been fair. Pt c/o nausea this AM. No additional complaints stated. Call light within reach.
[2025-04-08 16:15] LABS: Parainfluenza 3, PCR Detected (NotDetected)
[2025-04-08] MEDS: ATORVASTATIN 10MG TABLET 10 MG PO (20:01)
[2025-04-08] MEDS: TAMSULOSIN 0.4MG CAPSULE 0.4 MG PO (20:01)
[2025-04-09] VITALS: BP 157/87; PULSE 84; PULSE 86; RESP 11; TEMP 37.2; O2SAT 92
[2025-04-09 04:00] VITALS: BP 125/79; PULSE 120; PULSE 121; RESP 21; TEMP 36.6; O2SAT 93; BMI 27.5
[2025-04-09] MEDS: LACTATED RINGERS 1000ML 1,000 ML 125 ML IV (06:04)
[2025-04-09 07:30] LABS: Hematocrit 44.2 % (42.0-52.0); Hemoglobin 14.5 g/dL (14.1-18.0); Immature Granulocytes % 0.2 %; Mean Corpuscular HGB Conc 32.8 g/dL (31.8-35.4); Mean Corpuscular Hemoglobin 31.3 pg (27.0-31.2); Mean Corpuscular Volume 95.5 fl (80-94); Nucleated Red Blood Cells % 0 %; Platelet Count 146 K/mm3 (142-424); Red Blood Count 4.63 M/mm3 (4.60-6.20); Red Cell Distribution Width-SD 43.5 fL; White Blood Count 5.8 K/mm3 (4.8-10.8)
[2025-04-09 07:48] LABS: Alanine Aminotransferase 11 U/L (12-78); Albumin Level 3.2 g/dl (3.5-5.0); Albumin/Globulin Ratio 1.1 (1.1-1.8); Alkaline Phosphatase 85 U/L (38-126); Anion Gap 10.8 mEq/L (5-15); Aspartate Amino Transferase 26 U/L (17-59); Bilirubin,Total 0.8 mg/dl (0.2-1.3); Blood Urea Nitrogen 13 mg/dl (9-20); Calcium 9.3 mg/dl (8.4-10.2); Carbon Dioxide 27 mmol/L (22.0-30.0); Chloride 102 mmol/L (98-107); Creatinine Clearance Estimated 77 mL/min (50-200); Creatinine,Serum 0.80 mg/dl (0.66-1.25); Estimated Glomerular Filt Rate 93 ml/min (>60); GFR (African American) 113 ML/MIN (>60); Globulin 2.8 g/dL (1.3-3.2); Glucose 77 mg/dl (74-100); Potassium 3.8 mmoL/L (3.5-5.1); Sodium 136 mmol/L (136-145); Total Protein,Serum 6.0 g/dl (6.3-8.2)
[2025-04-09 08:00] VITALS: BP 150/83; PULSE 133; PULSE 139; RESP 18; TEMP 36.7; O2SAT 94
[2025-04-09] MEDS: CLOPIDOGREL 75MG TAB 75 MG PO (08:15)
[2025-04-09] MEDS: ASPIRIN EC 81MG TABLET 81 MG PO (08:15)
[2025-04-09] MEDS: FUROSEMIDE 40 MG TABLET PO (08:15)
[2025-04-09] MEDS: EMPAGLIFLOZIN 10MG TABLET 10 MG PO (08:15)
[2025-04-09] MEDS: LIPASE/PROTEASE/AMYLASE 1 EACH CAPSULE.DR PO ×3 (08:15→17:43)
[2025-04-09] MEDS: METOPROLOL SUCCINATE XL 50MG TABLET 50 MG PO (08:16)
[2025-04-09] MEDS: RANOLAZINE 500MG ER TABLET 1000 MG PO (08:16)
[2025-04-09] MEDS: PANTOPRAZOLE 40MG TABLET 40 MG PO (08:16)
[2025-04-09] MEDS: ACETAMINOPHEN 325MG TAB 650 MG PO (08:19)
--- NOTE | 2025-04-09 08:30 | EXP.DC.SUM ---
General Admission date:: 04/07/25 Discharge date: 04/08/25 HPI HPI HPI: Mr. Hsu is a 79-year-old male who presented to the emergency department today with chest pain, substernal radiating to the left arm since Friday. This is associated with palpitations and occasional shortness of breath. He states his the shortness of breath is worse in the morning when he wakes up and with exertion. He has a primary medical history of coronary artery disease, heart cath with stents, a flutter/A-fib, hypertension, hyperlipidemia, iron deficient anemia, anxiety. He has taken multiple nitros with little relief. He states that his heart rate has gone up to the 150s and feels very irregular. He also maintains that he has been compliant with medication, and had just recently seen Dr. Mckinnon in December. Denies abdominal pain, nausea, vomiting, diarrhea, fever, chills. #Unstable angina #A-flutter #Coronary artery disease ? Patient admitted to the floor for further telemetry monitoring, patient is now in normal sinus rhythm heart rate 65. Patient does still complain of angina that was unrelieved by sublingual nitro in the ED. ? Patient had heart cath yesterday afternoon, received 2 stents. 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 Continue home medications. Hospital Course Hospital Course Hospital Course: #Unstable angina #A-flutter #Coronary artery disease ? Patient admitted to the floor for further telemetry monitoring, patient is now in normal sinus rhythm heart rate 65. Patient does still complain of angina that was unrelieved by sublingual nitro in the ED. ? Patient had heart cath yesterday afternoon, received 2 stents. 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 Continue home medications. Exam Data for Last 24 hours Vital signs and Labs for Last 24 Hours: Temp Pulse Resp BP Pulse Ox O2 Del Method O2 Flow Rate 98.2 F 72 16 117/70 93 L Room Air 2 04/09/25 16:00 04/09/25 16:00 04/09/25 16:00 04/09/25 16:00 04/09/25 16:00 04/09/25 18:45 04/08/25 11:00 I & O for Last 24 hours: Intake & Output 04/09/25 04/10/25 04/11/25 04/12/25 23:59 23:59 23:59 23:59 Intake Total 3079 / 3079 Output Total 2200 / 2200 Balance 879 / 879 Weight 89.086 kg Microbiology Reports for the Last 24 Hours: Microbiology 04/08/25 11:30 Sputum - Expectorated Sputum Gram Stain - Final 04/08/25 11:30 Sputum - Expectorated Sputum Sputum Culture - Final Escherichia coli Constitutional Constitutional: no acute distress *Routine HEENT Exam Head: Present normocephalic Eye: Present EOMI and PERRL ENT: Present mucous membranes moist *Routine Neck Exam Neck: Present supple; Absent lymphadenopathy *Routine Respiratory Exam Respiratory: Present CTA bilaterally *Routine Cardiovascular Exam Cardiovascular: Present RRR *Routine Abdominal Exam Abdominal: Present soft and normoactive bowel sounds; Absent tenderness *Routine Extremities Exam Extremities: Absent cyanosis, clubbing or edema *Routine Skin Exam Skin: Present warm; Absent rash *Routine Neurological Exam Neurological: Present alert and oriented X3 Results Data Completed and Pending Labs on day of discharge: Preliminary micro results at discharge 04/08/25 12:25 Blood Culture - Preliminary Blood NO GROWTH AFTER 48 HOURS 04/08/25 12:25 Blood Culture - Preliminary Blood NO GROWTH AFTER 48 HOURS DS: Diagnosis Discharge Diagnosis (1) Angina pectoris, unstable: Status: Acute Code(s): I20.0 - Unstable angina (2) Atrial flutter: Status: Acute Code(s): I48.92 - Unspecified atrial flutter Qualifiers: Atrial flutter type: typical Qualified Code(s): I48.3 - Typical atrial flutter (3) CAD (coronary artery disease): Status: Chronic Code(s): I25.10 - Atherosclerotic heart disease of [place] coronary artery without angina pectoris Qualifiers: Associated angina: without angina Coronary Disease-Associated Artery/Lesion type: [place] artery [place] vs. transplanted heart: [place] heart Qualified Code(s): I25.10 - Atherosclerotic heart disease of [place] coronary artery without angina pectoris (4) Iron deficiency anemia: Status: Acute Code(s): D50.9 - Iron deficiency anemia, unspecified (5) GERD (gastroesophageal reflux disease): Status: Acute Code(s): K21.9 - Gastro-esophageal reflux disease without esophagitis (6) Opioid-induced constipation: Status: Acute Code(s): K59.03 - Drug induced constipation; T40.2X5A - Adverse effect of other opioids, initial encounter (7) Bloating: Status: Acute Code(s): R14.0 - Abdominal distension (gaseous) (8) Chronic radicular lumbar pain: Status: Acute Code(s): M54.16 - Radiculopathy, lumbar region; G89.29 - Other chronic pain (9) Anxiety: Status: Acute Code(s): F41.9 - Anxiety disorder, unspecified (10) BPH (benign prostatic hyperplasia): Status: Acute Code(s): N40.0 - Benign prostatic hyperplasia without lower urinary tract symptoms Meds Home Medications and Allergies Home Medications ?Medication ?Instructions ?Recorded ?Confirmed ?Type albuterol sulfate 90 mcg/actuation 2 puff inhalation Q4HP PRN 08/25/24 04/14/25 History aerosol inhaler Shortness Of Breath atorvastatin 10 mg tablet 10 mg PO HS 08/25/24 04/14/25 History diazepam 5 mg tablet 5 mg PO Q12HP PRN Anxiety 08/25/24 04/14/25 History duloxetine 60 mg capsule,delayed 60 mg PO DAILY 08/25/24 04/14/25 History release empagliflozin 10 mg tablet 10 mg PO DAILY 08/25/24 04/14/25 History (Jardiance) oxycodone-acetaminophen 5 mg-325 1 tab PO Q8HP PRN Pain 08/25/24 04/14/25 History mg tablet pantoprazole 40 mg tablet,delayed 40 mg PO DAILY 08/25/24 04/14/25 History release tamsulosin 0.4 mg capsule 0.4 mg PO HS 08/25/24 04/14/25 History lidocaine 5 % topical patch 1 patch topical DAILY #30 ea 11/23/24 04/14/25 Rx ranolazine 1,000 mg 1,000 mg PO BID #180 tabs 11/29/24 04/14/25 Rx tablet,extended release,12 hr aspirin 81 mg tablet,delayed 81 mg PO DAILY #30 tabs 01/04/25 04/14/25 Rx release (Adult Aspirin Regimen) Movantik 12.5 mg tablet (naloxegol) 12.5 mg PO DAILY #30 tabs 03/29/25 04/14/25 Rx simethicone 125 mg chewable tablet 125 mg PO QD-BID PRN Gastric Reflux 03/29/25 04/14/25 History (Gas-X Extra Strength) [id number] 1 cap PO TIDWMEAL 04/07/25 04/14/25 History 36,000-114,000-180,000 unit capsule,delay rel (Creon) rivaroxaban 15 mg tablet (Xarelto) 15 mg PO DAILY 04/07/25 04/14/25 History clopidogrel 75 mg tablet 75 mg PO DAILY 30 days #30 tabs 04/09/25 04/14/25 Rx furosemide 40 mg tablet 40 mg PO DAILY 30 days #30 tabs 04/09/25 04/14/25 Rx metoprolol succinate 50 mg 50 mg PO DAILY 30 days #30 tabs 04/09/25 04/14/25 Rx tablet,extended release 24 hr (Toprol XL) levofloxacin 750 mg tablet 750 mg PO Q24H #7 tabs 04/12/25 04/14/25 Rx New Prescriptions to Start Prescriptions: clopidogrel Hipolito Zapata furosemide Benny,Hipolito levofloxacin Karson Pedersen metoprolol succinate [Toprol XL] Hipolito Zapata Allergies Allergy/AdvReac Type Severity Reaction Status Date / Time Sulfa (Sulfonamide Allergy Unknown Unknown Verified 04/14/25 14:49 Antibiotics) allergy reaction Discharge Plan Disposition Patient Disposition: Home, Self-Care Condition: Fair Discharge Order Discharge Orders: Discharge Order (Routine); Ordered 04/09/25 Ordered By: Hipolito Zapata Follow up Plan Follow up with: Reilly Hill PA [Physician Inspector Eyeglass Frames, Cardiology] - 04/14/25 2:30 pm Prescriptions/Medication Reconciliation: New furosemide 40 mg Tablet 40 mg PO DAILY 30 Days Qty: 30 0RF metoprolol succinate [Toprol XL] 50 mg Tablet Extended Release 24 Hr 50 mg PO DAILY 30 Days Qty: 30 0RF clopidogrel 75 mg Tablet 75 mg PO DAILY 30 Days Qty: 30 0RF levofloxacin 750 mg tablet 750 mg PO Q24H Qty: 7 0RF Continued simethicone [Gas-X Extra Strength] 125 mg tablet,chewable 125 mg PO QD-BID PRN (Reason: Gastric Reflux) Movantik 12.5 mg tablet 12.5 mg PO DAILY Qty: 30 12RF Rx Instructions: must be taken on empty stomach; no food 1 hr after or 2-3 hrs before dose aspirin [Adult Aspirin Regimen] 81 mg tablet,delayed release (DR/EC) 81 mg PO DAILY Qty: 30 2RF ranolazine 1,000 mg tablet extended release 12 hr 1,000 mg PO BID Qty: 180 2RF atorvastatin 10 mg tablet 10 mg PO HS Patient Comments: TAKE 1 TABLET BY MOUTH ONCE DAILY. oxycodone-acetaminophen 5-325 mg tablet 1 tab PO Q8HP PRN (Reason: Pain) Patient Comments: TAKE 1 TABLET BY MOUTH EVERY 8 HOURS NEEDED FOR SEVERE PAIN. tamsulosin 0.4 mg capsule 0.4 mg PO HS Patient Comments: TAKE ONE CAPSULE BY MOUTH EVERY NIGHT AT BEDTIME pantoprazole 40 mg tablet,delayed release (DR/EC) 40 mg PO DAILY Patient Comments: TAKE 1 TABLET BY MOUTH ONCE DAILY. albuterol sulfate 90 mcg/actuation HFA aerosol inhaler 2 puff INHALATION Q4HP PRN (Reason: Shortness Of Breath) Patient Comments: INHALE 2 PUFFS INTO THE LUNGS EVERY 4 HOURS NEEDED FOR WHEEZING. diazepam 5 mg tablet 5 mg PO Q12HP PRN (Reason: Anxiety) Patient Comments: TAKE 1 TABLET BY MOUTH EVERY 12 HOURS NEEDED FOR ANXIETY. duloxetine 60 mg capsule,delayed release(DR/EC) 60 mg PO DAILY Patient Comments: TAKE 1 CAPSULE BY MOUTH ONCE DAILY. Jardiance 10 mg tablet 10 mg PO DAILY Patient Comments: TAKE 1 TABLET BY MOUTH ONCE DAILY. Xarelto 15 mg tablet 15 mg PO DAILY Creon 36,000-114,000- 180,000 unit capsule,delayed release(DR/EC) 1 cap PO TIDWMEAL Rx Instructions: Please take 1 capsule at the beginning or with your meal and administer with meals and/or snacks lidocaine 5 % adhesive patch,medicated 1 patch topical DAILY Qty: 30 0RF Rx Instructions: leave on most painful area for up to 12 hrs Discontinued metoprolol succinate 25 mg tablet extended release 24 hr 25 mg PO DAILY Problem Reconciliation Problems Reviewed?: Yes Patient Discharge Instructions ACTIVITY: Continue current activity DIET: continue same diet Patient Instructions: DI for Atrial Flutter, DI for Angina Print Language: Ukrainian Providers Primary Care Provider: Cheko Heredia Admit Provider: Hipolito Zapata Attending Provider: Hipolito Zapata
[2025-04-09 12:00] VITALS: BP 147/70; PULSE 120; PULSE 64; RESP 18; TEMP 36.8; O2SAT 93
[2025-04-09] MEDS: AZITHROMYCIN 500 MG in 0.9 % SODIUM CHLORIDE 250 ML 250 MG IV (13:40)
[2025-04-09 16:00] VITALS: BP 117/70; PULSE 72; PULSE 73; RESP 16; TEMP 36.8; O2SAT 93
--- NOTE | 2025-04-09 17:54 | PC.NURSE ---
pt is A&Ox4. pt has been on room air today and has tolerated well. this morning heart rate was 120-140s but since has been around 70-80s. pt is independent with ambulation. no other needs at this time. call light within reach.
--- NOTE | 2025-04-09 18:01 | P.PN_ITS ---
Subjective *Date: 04/09/25 *Time: 18:05 Interval history: seen at bedside, no fevers overnight, denied CP, SOB, no complains today, his HR has been in 120s Exam Data for Last 24 hours Vital signs and Labs for Last 24 Hours: Temp Pulse Resp BP Pulse Ox O2 Del Method O2 Flow Rate 98.2 F 72 16 117/70 93 L Room Air 2 04/09/25 16:00 04/09/25 16:00 04/09/25 16:00 04/09/25 16:00 04/09/25 16:00 04/09/25 17:00 04/08/25 11:00 Laboratory Results - last 24 hr 04/09/25 06:34: WBC 5.8, RBC 4.63, Hgb 14.5, Hct 44.2, MCV 95.5 H, MCH 31.3 H, MCHC 32.8, RDW 12.4, Plt Count 146, MPV 9.5, Neut % (Auto) 67.7, Lymph % (Auto) 19.7, [place] % (Auto) 11.9 H, Eos % (Auto) 0.3, Baso % (Auto) 0.2, Neut # (Auto) 3.9, Lymph # (Auto) 1.1, [place] # (Auto) 0.7, Eos # (Auto) 0.0, Baso # (Auto) 0.0, Sodium 136, Potassium 3.8, Chloride 102, Carbon Dioxide 27, Anion Gap 10.8, BUN 13, Creatinine 0.80, Estimated Creat Clear 77, Estimated GFR 93, Est GFR ( Amer) 113, Glucose 77, Calcium 9.3, Total Bilirubin 0.8, AST 26, ALT 11 L, Alkaline Phosphatase 85, Total Protein 6.0 L, Albumin 3.2 L, Globulin 2.8, Albumin/Globulin Ratio 1.1 I & O for Last 24 hours: Intake & Output 04/06/25 04/07/25 04/08/25 04/09/25 23:59 23:59 23:59 23:59 Intake Total 360 / 360 1036 / 2068 2359 / 2359 Output Total 2700 / 2700 2200 / 2200 Balance 360 / 10 -1664 / -632 159 / 159 Weight 89.443 kg 84.822 kg 89.086 kg Microbiology Reports for the Last 24 Hours: Microbiology 04/08/25 12:25 Blood Blood Culture - Preliminary NO GROWTH AFTER 24 HOURS 04/08/25 12:25 Blood Blood Culture - Preliminary NO GROWTH AFTER 24 HOURS 04/08/25 11:30 Sputum - Expectorated Sputum Gram Stain - Final Constitutional Constitutional: no acute distress *Routine HEENT Exam Head: Present normocephalic Eye: Present EOMI and PERRL ENT: Present mucous membranes moist *Routine Neck Exam Neck: Present supple; Absent lymphadenopathy *Routine Respiratory Exam Respiratory: Present CTA bilaterally *Routine Cardiovascular Exam Cardiovascular: Present RRR and tachycardia *Routine Abdominal Exam Abdominal: Present soft and normoactive bowel sounds; Absent tenderness *Routine Extremities Exam Extremities: Absent cyanosis, clubbing or edema *Routine Skin Exam Skin: Present warm; Absent rash *Routine Neurological Exam Neurological: Present alert and oriented X3 Assessment and Plan *Assessment and plan (1) Angina pectoris, unstable: Status: Acute Category: Medical Code(s): I20.0 - Unstable angina (2) Atrial flutter: Status: Acute Qualifiers: Atrial flutter type: typical Qualified Code(s): I48.3 - Typical atrial flutter Category: Medical Code(s): I48.92 - Unspecified atrial flutter (3) CAD (coronary artery disease): Status: Chronic Qualifiers: Associated angina: without angina Coronary Disease-Associated Artery/Lesion type: [place] artery [place] vs. transplanted heart: [place] heart Qualified Code(s): I25.10 - Atherosclerotic heart disease of [place] coronary artery without angina pectoris Category: Medical Code(s): I25.10 - Atherosclerotic heart disease of [place] coronary artery without angina pectoris (4) Iron deficiency anemia: Status: Acute Category: Medical Code(s): D50.9 - Iron deficiency anemia, unspecified (5) GERD (gastroesophageal reflux disease): Status: Acute Category: Medical Code(s): K21.9 - Gastro-esophageal reflux disease without esophagitis (6) Opioid-induced constipation: Status: Acute Category: Medical Code(s): K59.03 - Drug induced constipation; T40.2X5A - Adverse effect of other opioids, initial encounter (7) Bloating: Status: Acute Category: Medical Code(s): R14.0 - Abdominal distension (gaseous) (8) Chronic radicular lumbar pain: Status: Acute Category: Medical Code(s): M54.16 - Radiculopathy, lumbar region; G89.29 - Other chronic pain (9) Anxiety: Status: Acute Category: Medical Code(s): F41.9 - Anxiety disorder, unspecified (10) BPH (benign prostatic hyperplasia): Status: Acute Category: Medical Code(s): N40.0 - Benign prostatic hyperplasia without lower urinary tract symptoms Plan Mr. Hsu is a 79-year-old male who presented to the emergency department with chest pain, substernal radiating to the left arm for several days. He has taken multiple doses of sublingual nitro without relief. ED workup was significant fo r tachyarrhythmia, appears to be a flutter. #Unstable angina #A-flutter #Coronary artery disease ? Patient had heart cath yesterday afternoon, received 2 stents. 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 Continue home medications. ? Chest CTA pending. ?Repeat CBC, CMP, magnesium in the a.m. to assess for kidney function, electrolyte disturbances, leukocytosis. ?Patient has been tachycardic, heart rate in the 120s. Sinus rhythm, patient given morning dose metoprolol 25 mg. Heart rate still high, one-time dose metoprolol 5 mg given IV. Increase metoprolol to 50 mg daily. #GERD #Iron deficient anemia ? Patient sees DANIEL Helm, for acid reflux and indigestion. He also has been diagnosed with iron deficient anemia. Patient H&H stable on admission, will continue to monitor. Patient does take pantoprazole 40 mg daily, will continue. #Constipation: Patient also sees DANIEL Helm, for constipation/bloating issues. Patient started on Creon, Gas-X, Movantik. Will continue Creon scheduled, Gas-X as needed. Hold Movantik due to availability at this time. #Chronic pain: Patient takes oxycodone?acetaminophen 1 tab every 8 hours as needed for pain, Will continue as needed. #Anxiety: Patient takes duloxetine 60 mg a day, diazepam 5 mg every 12 hours as needed for anxiety, will continue. #BPH: Patient takes tamsulosin 0.4 mg at bedtime, will continue. Full code Heparinized during cath?VTE Ambulate as tolerated Cardiology consulted N.p.o. diet now, cardiac diet post cath addendum. 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
--- NOTE | 2025-04-11 10:49 | SW/DCPLANNER ---
Addendum entered by Nisa Maclolm RN 04/12/25 08:49: Contacted patient per Dr. Pedersen's request. Sputum Cx grew out Ecoli and patient will need an antibiotic. Patient plans to apple picker prescription at [facility] today. Original Note: Spoke with patient on the phone. Patient stated that he is doing very well. Patient stated that he is aware of his upcoming appointments. Patient stated that he was able to get his new medicine picked up from [facility]. Patient stated that he has no concerns or questions at this time. Evie Owens
== END 2025-04-09 19:50 | disposition home or self-care (01) | DRG 253 ==
LOC: ER 11:02 → 2ND 12:17
PROVIDERS: Internal Medicine; Nurse Practitioner Family; Admitting Provider Internal Medicine; Emergency Provider Emergency Medicine; PCP Family Medicine; Visit Provider Internal Medicine
PROC: 4A023N7 Measurement of Cardiac Sampling and Pressure, Left Heart, Percutaneous Approach (ICD-10-PCS; CPT 93452; principal; 2025-04-07 16:00)
DX: I25.110 Atherosclerotic heart disease of native coronary artery with unstable angina pectoris (principal); I48.11 Longstanding persistent atrial fibrillation; I48.3 Typical atrial flutter; I50.22 Chronic systolic (congestive) heart failure; I11.0 Hypertensive heart disease with heart failure; I70.8 Atherosclerosis of other arteries; F32.9 Major depressive disorder, single episode, unspecified; J44.9 Chronic obstructive pulmonary disease, unspecified; D50.9 Iron deficiency anemia, unspecified; K21.9 Gastro-esophageal reflux disease without esophagitis; M54.16 Radiculopathy, lumbar region; G89.29 Other chronic pain; F41.9 Anxiety disorder, unspecified; N40.0 Benign prostatic hyperplasia without lower urinary tract symptoms; K59.03 Drug induced constipation; T40.2X5A Adverse effect of other opioids, initial encounter; E78.2 Mixed hyperlipidemia; F17.210 Nicotine dependence, cigarettes, uncomplicated; R14.0 Abdominal distension (gaseous); Z95.5 Presence of coronary angioplasty implant and graft; Z55.6 Problems related to health literacy; Z88.2 Allergy status to sulfonamides; Z79.82 Long term (current) use of aspirin; Z79.01 Long term (current) use of anticoagulants; Z79.899 Other long term (current) drug therapy
CPT/HCPCS: 36415; 71045; 71275; 80053; 80061; 83735; 83880; 84100; 84439; 84443; 84484; 85025; 85347; 85378; 85610; 86803; 87040; 87070; 87077; 87186; 87205; 87389; 87633; 93005; 93306; 99152; 99153; C1725; C1760; C1769; C1876; J0456; J0696; J1644; J2003; J2250; J3010; J3475; J7040; J7050; J7120; Q9967

== ENCOUNTER 2025-04-14 13:38 | Outpatient (CLI) | payer MEDICARE, BC, SELFPAY ==
--- OUTSIDE RECORDS SUMMARY | 2025-03-11 14:00 | XMS_ITS | Encounter Summary ---
Author Organization [facility] Address [address] [place] [address] Care Team Providers Care Wage And Salary Administrator Name Role Phone Cheko Heredia MD Primary Care Provider + Reason for Visit * Reason Comments Follow-up Diabetes Hyperlipidemia Encounter Details Date Type Department Care Team (Late st Contact Info) Description 03/11/2025 2:00 PM EDT Office Visit [facility] [address] [place] [address] Cheko Heredia MD [address] [place] [address] Type 2 diabetes mellitus with [...] Industry Job Start Date Job End Date [employer] Not on file Not on file [...] visit with me he followed up with [facility] cardiology without changes in medications. He is seeing electrophysiology in March and is considering undergoing repeat ablation. He has seen [facility] gastroenterology. Upper and lower endoscopies have not [...] 06/13/2025 3:00 PM EDT Office Visit [facility] [address] [place] [address] Cheko Heredia MD [address] [facility] [address] 12/12/2025 2:15 PM EDT Office Visit [facility] [address] [place] [address] Cheko Heredia MD [address] [facility] [address] Scheduled Procedures Name Priority Associated Diagnoses Date/Ti me ABLATION A-FIB Atrial fibrillation with RVR Cardiomyopathy, dilated, nonischemic Essential hypertension documented as of this encounter Visit Diagnoses Diagnosis Type 2 diabetes mellitus with hyperglycemia, without long-term current use of insulin- Primary Chronic pain syndrome Spondylosis of lumbar region without myelopathy or radiculopathy Anxiety about health documented in this encounter Care Teams Wage And Salary Administrator Relationship Specialty Start Date End Date Cheko Heredia MD [address] [place] [address] PCP - General Family Medicine 01/10/22 documented as of this encounter
--- OUTSIDE RECORDS SUMMARY | 2025-03-30 13:30 | XMS_ITS | Encounter Summary ---
Author Organization [facility] [place] [address] Care Team Providers Care Toppiece Cutter Name Role Phone Unavailable Primary Care Provider Unavailabl e Reason for Visit * Reason Comments Follow-up 6 month f/u hx AF.me ds per pt report Encounter Details Date Type Department Care Team (Late st Contact Info) Description 03/30/2025 1:30 PM EDT Office Visit [facility] [address] [facility] [address] [place] [address] Edsi Garza MD [address] [place] [address] Atrial fibrillation with rapid ventricular response (HCC) (Primary Dx); Cardiomyopathy, dilated, nonischemic (HCC) Social History Tobacco Use Types Packs/Day Years Used Date Smoking Tobacco: Every Day Cigarettes Smokeless Tobacco: Never Alcohol Use Standard Drinks/Week Comments Not Currently 0 (1 standard drink = 0.6 oz pur e alcohol) Sexually Active Control Partners Comments Yes Female Sex and Gender Information Value Date Recorded Sex Assigned at Not on file Legal Sex Male 1:03 AM EDT Gender Identity Not on file Sexual Orientation Not on file documented as of this encounter Last Filed Vital Signs Vital Sign Reading Time Taken Comments Blood Pressure 120/62 03/30/2025 1:42 PM EDT Pulse 84 03/30/2025 1:42 PM EDT Temperature - - Respiratory Rate - - Oxygen Saturation 95% 03/30/2025 1:42 PM EDT Inhaled Oxygen Concentration - - Weight 91.6 kg (202 lb) 03/30/2025 1:42 PM EDT Height - - Body Mass Index 28.17 09/28/2024 1:33 PM EST documented in this encounter Progress Notes * Edis Garza MD - 03/30/2025 1:30 PM EDT Cardiac Electrophysiology Progress Note Patient ID: Mino Hsu is a 79 y.o. male. No chief complaint on file. Feels ok. No palpitations. No RVR. Here for f/u Follow-up Chronicity: AF with RVR,CHF,s/p ablation. Associated symptoms include weakness. Pertinent negativesinclude no coughing, diaphoresis, headaches, myalgias, rash or vertigo. Their chronic cardiac conditions are: Problem List Cardiology Problems Hyperlipidemia Cardiomyopathy, dilated, nonischemic (HCC) CAD (coronary artery disease) Hypertension Paroxysmal atrial fibrillation (HCC) Atrial fibrillation with rapid ventricular response (HCC) Bilateral carotid artery stenosis CHF (congestive heart failure) ([facility]) S/P ablation of atrial fibrillation Social History Tobacco Use Smoking Status Every Day Current packs/day: 0.50 Types: Cigarettes Smokeless Tobacco Never Current Outpatient Medications Medication Sig Dispense Refill albuterol (PROVENTIL HFA;VENTOLIN HFA) 90 mcg/actuation Inhl HFA Aerosol Inhaler Inhale 2 Puffs into the lungs every 6 hours as needed for Wheezing. amiodarone (PACERONE) 200 mg Oral Tablet Take 0.5 Tablets by mouth daily. atorvastatin (LIPITOR) 10 mg Oral Tablet Take 10 mg by mouth daily. bumetanide (BUMEX) 1 mg Oral Tablet Take 1 mg by mouth daily. Cholecalciferol, Vitamin D3, (VITAMIN D3) 25 mcg (1,000 unit) Oral Capsule Take 1 Capsule by mouth daily. clopidogreL (PLAVIX) 75 mg Oral Tablet Take 75 mg by mouth daily. (Patient not taking: Reported on 09/28/2024) cyclobenzaprine (FLEXERIL) 10 mg Oral Tablet Take 10 mg by mouth 2 times daily as needed for Musclespasms. diazePAM (VALIUM) 5 mg Oral Tablet Take 5 mg by mouth 3 times daily as needed for Anxiety. Indications: anxious docusate sodium (COLACE) 100 mg Oral Capsule Take 100 mg by mouth 2 times daily. DULoxetine (CYMBALTA) 60 mg Oral Capsule, Delayed Release(E.C.) Take 60 mg by mouth daily. fish oil OTC (OMEGA-3 DHA-EPA 300 MG) 300-1,000 mg Oral Capsule, Delayed Release(E.C.) Take 2 g by mouth daily. FLUoxetine (PROZAC) 20 mg Oral Capsule Take by mouth daily. JARDIANCE 10 mg Oral Tablet Take 10 mg by mouth daily. metoprolol succinate ER (TOPROL-XL) 100 mg Oral Tablet Sustained Release 24 hr Take 100 mg by mouthdaily. 03/10 pt states 50mg qd) oxyCODONE-acetaminophen (PERCOCET) 5-325 mg Oral Tablet Take 1 Tablet by mouth 3 times daily as needed for Chronic Pain (G89.29). Indications: pain pantoprazole (PROTONIX) 40 mg Oral Tablet, Delayed Release (E.C.) Take 1 Tablet by mouth daily. 30 Tablet 2 ranolazine (RANEXA) 500 mg Oral Tablet Sustained Release 12 hr Take 500 mg by mouth 2 times daily. tamsulosin (FLOMAX) 0.4 mg Oral Capsule Take 0.4 mg by mouth nightly. tiotropium (SPIRIVA) 18 mcg Inhl Capsule, w/Inhalation Device Inhale 18 mcg into the lungs daily. UNABLE TO FIND Take 1 Tablet by mouth daily. Prevagen XARELTO 20 mg Oral Tablet TAKE 1 TABLET BY MOUTH DAILY WITH DINNER No current facility-administered medications for this visit. Patients past medical, family and social histories were reviewed and updated. There were no changesexcept as noted Review of Systems Constitutional: Positive for malaise/fatigue. Negative for diaphoresis, weight gain and weight loss. HENT: Negative for nosebleeds. Cardiovascular: Positive for dyspnea on exertion. Negative for leg swelling, palpitations and syncope. Respiratory: Negative for cough and shortness of breath. Skin: Negative for flushing and rash. Musculoskeletal: Negative for falls and myalgias. Gastrointestinal: Negative for heartburn and melena. Neurological: Positive for dizziness and weakness. Negative for headaches and vertigo. Psychiatric/Behavioral: Negative for depression. The patient does not have insomnia. Allergic/Immunologic: Negative for hives and persistent infections. Objective: No data found. There is no height or weight on file to calculate BMI. General: No apparent distress. Alert and oriented. Neck:Trachea is midline. Neck veins are flat. Respiratory: Clear to auscultation bilaterally Cardiovascular: Rhythm is regular. S1 and S2 normal. Abdomen: Abdomen is soft and non tender. Extremeties: No Edema. Clubbing is absent. Cyanosis is absent. Skin: Warm and dry. Neurological: Cranial nerves are grossly intact. Speech is normal. [id number] Stroke Risk Points: 6 Values used to calculate this score: Points Metrics 1 Has Congestive Heart Failure: Yes 1 Has Hypertension: Yes 2 Age: 79 1 Has Diabetes: Yes 0 Had Stroke: No Had TIA: No Had Thromboembolism: No 1 Has Vascular Disease: Yes 0 Clinically Relevant Sex: Male Assessment and Plan: Persistent AF s/p Complex LA ablation 08/08/2021 Late recurrence of AF Once insetting of COVID 2021 Then again in 2023 Amiodarone started at OSH SR on amiodarone Discussed options Will continue amiodarone Decrease to 100mg daily Continue AC 2. Ischemic CMP 3. Coronary Artery Disease Managed by [facility] 4. Tobacco h/o F/u 6 months documented in this encounter Miscellaneous Notes * Patient Instructions - Charlotte Diez RMA - 03/30/2025 1:30 PM EDT You may be contacted by mail or e-mail to participate in a patient satisfaction survey regarding your office visit today. We value your opinion and depend on your feedback to make improvements and provide you with the best possible experience while receiving high quality medical treatment. Your time in completing this survey is greatly appreciated. Please contact your primary care physician or assistant football coach for management of your lipids. documented in this encounter Plan of Treatment Not on file documented as of this encounter Procedures Procedure Name Priority Date/Time Associated Diagnosis Comments POCT EKG Routine 03/30/2025 1:46 PM EDT Atrial fibrillation with rapid ventricular response (HCC) Cardiomyopathy, dilated, nonischemic (HCC) documented in this encounter Results * POCT EKG (03/30/2025 1:46 PM EDT) 03/30/2025 1:46 PM EDT Impressions [facility] - 03/30/2025 1:46 PM EDT Sinus rhythm us Edis Garza MD POINT OF CARE CARDIOLOGY Final Result [facility] documented in this encounter Visit Diagnoses Diagnosis Atrial fibrillation with rapid ventricular response (HCC)- Primary Atrial fibrillation Cardiomyopathy, dilated, nonischemic (HCC) Other primary cardiomyopathies documented in this encounter Discontinued Medications Medication Sig Discontinue Reason Start Date End Da te clopidogreL (PLAVIX) 75 mg Oral Tablet Take 75 mg by mouth daily. Patient Reported not taking medication 03/30/2025 documented as of this encounter Historical Medications * This list may reflect changes made after this encounter. MOVANTIK 12.5 mg Oral Tablet 03/29/2025 CREON 36,000-114,000- 180,000 unit Oral Capsule, Delayed Release(E.C.) 03/29/2025 nitroGLYCERIN (NITROSTAT) 0.4 mg SL Tablet, Sublingual Place 0.4 mg under the tongue every 5 minutes as needed. for chest pain. Use up to 3 doses. If no relief, go to ER. 03/28/2025 added in this encounter Additional Health Concerns Assessment Noted Time A fall risk assessment has been complete d for the patient 09/28/2024 1:34 PM EST documented as of this encounter
--- OUTSIDE RECORDS SUMMARY | 2025-04-14 13:40 | XMS_ITS | Clinical Summary ---
Author Organization [facility] Address [address] [place] [id number] Phone Care Team Providers Care Adviser Sales Name Role Phone Lio Corcoran MD Primary Care Physician [phone] Conditions or Problems Problem Name Problem Code Onset Date Status Entry Date Provider Comment Standard Description Annotate Complicated grief 666956337 (SNOMED CT) 05/08 Active 05/08 Lio Corcoran MD Abnormal grief reaction Hx of cardiac arrhythmias 617504926 (SNOMED CT) 05/08 Active 05/08 Lio Corcoran MD H/O: heart disorder Insomnia 052631413 (SNOMED CT) 05/08 Active 05/08 Lio Corcoran MD Insomnia Back pain 073808541 (SNOMED CT) 05/08 Active 05/08 Lio Corcoran MD Backache Fatigue 57929638 (SNOMED CT) 05/08 Active 05/08 Lio Corcoran MD Fatigue Depression / anxiety 900108514 (SNOMED CT) 05/08 Active 05/08 Lio Corcoran MD Mixed anxiety and depressive disorder Anticoagulati on 500274880 (SNOMED CT) 05/08 Active 05/08 Lio Corcoran MD Anticoagulant therapy Stented coronary artery 638924501 (SNOMED CT) 05/08 Active 05/08 Lio Corcoran MD Stented coronary artery Medications Medication Instructions Start Date Stop Date Generic Name NDC Provider MIRTAZAPINE 15 MG TABS Take 1 pill by mouh at bedtime MIRTAZAPINE [id number] Lio Corcoran MD MIRTAZAPINE 7.5 MG TABS take 1 tablet nightly by mouth MIRTAZAPINE 00111036475 Lio Corcoran MD CYMBALTA 30 MG CPEP TAKE 1 CAPSULE BY MOUTH EVERY NIGHT for 30 days and then stop it (we are weaning this medicine to start new medicine end of Oct) DULOXETINE HCL 76078011711 Lio Corcoran MD CYMBALTA 30 MG CPEP TAKE 1 CAPSULE BY MOUTH EVERY NIGHT for 30 days and then stop it (we are weaning this medicine to start new medicine end of Oct) DULOXETINE HCL 97891466969 Lio Corcoran MD CYMBALTA 30 MG CPEP TAKE 1 CAPSULE BY MOUTH EVERY NIGHT (weaning this medicine for 30 days to start new medicine) DULOXETINE HCL 22544594625 Lio Corcoran MD DULOXETINE HCL 60 MG CPEP TAKE 1 CAPSULE BY MOUTH EVERY NIGHT DULOXETINE HCL 26841754212 Lio Corcoran MD MIRTAZAPINE 7.5 MG TABS take 1 tablet nightly by mouth MIRTAZAPINE 03337086964 Lio Corcoran MD CENTRUM SILVER ADULT 50+ TABS TAKE 1 TABLET BY MOUTH EACH DAY MULTIPLE VITAMINS-COMPETITIVE INTELLIGENCE ANALYST ALS 53018516186 Lio Corcoran MD FISH OIL 1000 MG CAPS TAKE 1 CAPSULE BY MOUTH 2 TIMES A DAY OMEGA-3 FATTY ACIDS 94757785523 Lio Corcoran MD PREVAGEN 10 MG CAPS APOAEQUORIN 88559542756 Lio Corcoran MD DIAZEPAM 5 MG TABS TAKE 1 TABLET BY MOUTH 3 TIMES A DAY NEEDED FOR ANXIETY DIAZEPAM 06747319071 Lio Corcoran MD OXYCODONE HCL 5 MG CAPS TAKE 1 BY MOUTH 3 TIMES A DAY OXYCODONE HCL 99980033279 Lio Corcoran MD SIMVASTATIN 20 MG TABS TAKE 1 TABLET BY MOUTH AT BEDTIME FOR CHOLESTEROL SIMVASTATIN 42374252167 Lio Corcoran MD XARELTO 20 MG TABS TAKE 1 TABLET BY MOUTH ONCE A DAY RIVAROXABAN [id number] Lio Corcoran MD OMEPRAZOLE 20 MG CPDR TAKE 1 CAPSULE BY MOUTH ONCE A DAY OMEPRAZOLE 05304874914 Lio Corocran MD METOPROLOL SUCCINATE ER 25 MG [id number] TAKE 1 TABLET BY MOUTH ONCE A DAY METOPROLOL SUCCINATE 81744510692 Lio Corcoran MD TAMSULOSIN HCL 0.4 MG CAPS TAMSULOSIN HCL 95241661911 Lio Corcoran MD LISINOPRIL 10 MG TABS TAKE 1 TABLET BY MOUTH 1 TIME A DAY LISINOPRIL 38495291865 Lio Corcoran MD AMIODARONE HCL 200 MG TABS TAKE 1 TABLET BY MOUTH TWICE A DAY AMIODARONE HCL 99832362663 Lio Corcoran MD DULOXETINE HCL 60 MG CPEP TAKE 1 CAPSULE BY MOUTH EVERY NIGHT DULOXETINE HCL [id number] Lio Corcoran MD Medications Administered No information [...] in Blood ABS NEUTROPH 2947 CELLS/UL 10*3/uL 0089-3152 N Neutrophils [#/volume] in Blood MPV 9.5 [...] Telehealth G202 Medicare Telehealth G202 Medicare Telehealth CPT-01265() Psychotherapy 45m -No [facility]() 05/10/05 G2025 Medicare Telehealth [id number] Medication Reconciliation CPT-3077F Most recent systolic blood pressure >=140 mm Hg CPT-3078F Most recent diastoli c blood pressure <80 mm Hg CPT-97818() Psychotherapy 45m -No [facility]() 20 03/09/10 CPT-00271() Psychotherapy 45m -No [facility]() 20 04/08/11 CPT-38817() Psychotherapy 60m Crises- No [facility]() 202 CPT-17923() Psychotherapy 45m -No [facility]() 20 04/07/19 CPT-1159F Medication list docu mented in medical record [facility] 6399 T1 CBC with diff [facility] 95697 T1 CMP [facility] 80477 T2 Vitamin D 25 Hydroxy 2019 [facility] 68375 T1 TSH reflex to free T4 202 [facility] 927 T1 B12 [facility] 38430 T1 Lipid Panel [facility] 496 T1 HGBA1c [...]
--- OUTSIDE RECORDS SUMMARY | 2025-04-14 13:41 | XMS_ITS | Clinical Summary ---
Author Organization [facility] Address [address] [place] [address] Care Team Providers Care Software Test Manager Name Role Phone Dariusz Vu MD Primary Care Provider [phone] Family History Medical History Relation Name Comments [...] or (1 - 1-dose 75+ series) 2021 [id number] Vaccine ( season) 2024 08/15/2022, 07/20/2021, 11/25/2020, [...] complete this topic Insurance MEDICARE Care Teams Software Test Manager Relationship Specialty Start Date End Date Dariusz Vu MD [address] [place] [address] #1 #1 ANTONI Panda [phone] PCP - General 01/26/21
--- OUTSIDE RECORDS SUMMARY | 2025-04-14 13:41 | XMS_ITS | Encounter Summary ---
Author Organization [facility] Address [address] [place] [id number] Care Team Providers Care Senior Hris Analyst Name Role Phone Cheko Heredia MD Primary Care Provider + Encounter Details Date Type Department Care Team (Late st Contact Info) Description 04/15/2017 External CPT II [employer] HATCH[employer] [facility] Social History Tobacco Use [...] Description 06/13/2025 3:00 PM EDT Office Visit [facility] [address] [place] [address] Cheko Heredia MD [address] [place] [address] 12/12/2025 2:15 PM EDT Office Visit [facility] [address] [place] [address] Cheko Heredia MD [address] [place] [address] Scheduled Procedures Name Priority Associated Diagnoses Date/Ti me ABLATION A-FIB Atrial fibrillation with RVR Cardiomyopathy, dilated, nonischemic Essential hypertension documented as of this encounter Visit Diagnoses Not on filedocumented in this encounter Care Teams Senior Hris Analyst Relationship Specialty Start Date End Date Cheko Heredia MD [address] [facility] [place] [place] [address] PCP - General Family Medicine 01/10/22 documented as of this encounter
--- OUTSIDE RECORDS SUMMARY | 2025-04-14 13:41 | XMS_ITS | Encounter Summary ---
[facility] Organization [facility] Address [address] [place] [id number] Care Team Providers Care Generator Rebuilder Name Role Phone Cheko Heredia MD Primary [...] Industry Job Start Date Job End Date [employer] Not on file Not on file Not on file documented as of this encounter Plan of Treatment Upcoming Encounters Date Type Department Care Team (Late st Contact Info) Description 06/13/2025 3:00 PM EDT Office Visit [facility] [address] [place] [address] Cheko Heredia MD [address] [place] [address] 12/12/2025 2:15 PM EDT Office Visit [facility] [address] [place] [address] Cheko Heredia MD [address] [place] [address] Scheduled Procedures Name Priority Associated Diagnoses Date/Ti me ABLATION A-FIB Atrial fibrillation with RVR Cardiomyopathy, dilated, nonischemic Essential hypertension documented as of this encounter Visit Diagnoses Not on filedocumented in this encounter Care Teams Generator Rebuilder Relationship Specialty Start Date End Date Cheko Heredia MD [address] [place] [address] PCP - General Family Medicine 01/10/22 documented as of this encounter
--- OUTSIDE RECORDS SUMMARY | 2025-04-14 13:41 | XMS_ITS | Encounter Summary ---
[facility] Organization [facility] Address [address] [place] [address] Care Team Providers Care Correctional Therapy Teacher Name Role Phone Cheko Heredia MD Primary Care Provider + Reason for Visit * Reason Comments Med Refill Encounter Details Date Type Department Care Team (Late Contact Info) Description 04/30/2022 Refill [facility] MEDICINE [address] [facility] [place] [address] Cheko Heredia MD [address] [facility] [place] [address] Chronic pain syndrome; Anxiety about [...] Industry Job Start Date Job End Date [employer] Not on file Not on file Not on file documented as of this encounter Plan of Treatment Upcoming Encounters Date Type Department Care Team (Late Contact Info) Description 06/13/2025 3:00 PM EDT Office Visit [facility] MEDICINE [address] [facility] [place] [address] Cheko Heredia MD [address] [place] [address] 12/12/2025 2:15 PM EDT Office Visit [facility]INE [address] [place], [place] [phone] Cheko Heredia MD [address] [place] [address] Scheduled Procedures Name Priority Associated Diagnoses Date/Ti me ABLATION A-FIB Atrial fibrillation with RVR Cardiomyopathy, dilated, nonischemic Essential hypertension documented as of this encounter Visit Diagnoses Diagnosis Chronic pain syndrome Anxiety about health documented in this encounter Additional Health Concerns Assessment Noted Time PHQ-2 Depression Total Score: 5 01/11/20 1:44 PM EDT documented as of this encounter Care Teams Correctional Therapy Teacher Relationship Specialty Start Date End Date Cheko Heredia MD [address] [place] [address] PCP - General Family Medicine 01/10/22 documented as of this encounter
--- OUTSIDE RECORDS SUMMARY | 2025-04-14 13:41 | XMS_ITS | Encounter Summary ---
Author Organization [facility] Address [address] [place] [address] Care Team Providers Care Scalp Treatment Operator Name Role Phone Horace Kojo Primary Care Provider [phone] Skinny Massey MD Unavailable [phone] Encounter Details Date Type Department Care Team (Latest Contact Info) Description 04/19/2019 Preop Surgical Orders [facility] Physicians - Urology, [address] [phone] Skinny Massey MD [address] [place] [id number] Increased frequency of urination (Primary Dx) Social [...] frequency documented in this encounter Care Teams Scalp Treatment Operator Relationship Specialty Start Date End Date HoraceKojo [address] [place] [id number] PCP - General 09/18/18 Skinny Massey MD [address] [place] [address] Urology 09/22/22 documented as of this encounter
--- OUTSIDE RECORDS SUMMARY | 2025-04-14 13:41 | XMS_ITS | Encounter Summary ---
Author Organization [facility] Address [address] [place] [address] Care Team Providers Care Access Coordinator Name Role Phone Cheko Heredia MD Primary Care Provider + Reason for Visit * Reason Comments Med Refill Encounter Details Date Type Department Care Team (Late Contact Info) Description 03/10/2025 Refill [facility]INE [address] [place] [address] Cheko Heredia MD [address] [place] [address] Type 2 diabetes mellitus with [...] Industry Job Start Date Job End Date [employer] Not on file Not on file Not on file documented as of this encounter Plan of Treatment Upcoming Encounters Date Type Department Care Team (Late Contact Info) Description 06/13/2025 3:00 PM EDT Office Visit [facility] [address] [place], [place] [address] Cheko Heredia MD [address] [place] [address] 12/12/2025 2:15 PM EDT Office Visit [facility] MEDICINE [address] [place] [address] Cheko Heredia MD [address] [place] [address] Scheduled Procedures Name Priority Associated Diagnoses Date/Ti me ABLATION A-FIB Atrial fibrillation with RVR Cardiomyopathy, dilated, nonischemic Essential hypertension documented as of this encounter Visit Diagnoses Diagnosis Type 2 diabetes mellitus with hyperglycemia, without long-term current use of insulin documented in this encounter Care Teams Access Coordinator Relationship Specialty Start Date End Date Cheko Heredia MD [address] [place] [address] PCP - General Family Medicine 01/10/22 documented as of this encounter
--- OUTSIDE RECORDS SUMMARY | 2025-04-14 13:41 | XMS_ITS | Encounter Summary ---
[facility] Organization [facility] Address [address] [place] [id number] Care Team Providers Care Water And Sewer Systems Superintendent Name Role Phone Cheko Heredia MD Primary Care Provider + Encounter Details Date Type Department Care Team (Late st Contact Info) Description 12/12/2024 Results Follow-Up [facility] MEDICINE [address] [facility] [place] [address] Cheko Heredia MD [address] [place] [address] Social History Tobacco Use Types [...] Industry Job Start Date Job End Date [employer] Not on file Not on file Not on file documented as of this encounter Plan of Treatment Upcoming Encounters Date Type Department Care Team (Late st Contact Info) Description 06/13/2025 3:00 PM EDT Office Visit [facility] MEDICINE [address] [place] [address] Cheko Heredia MD [address] [place] [address] 12/12/2025 2:15 PM EDT Office Visit [facility] MEDICINE [address] [place] [address] Cheko Heredia MD [address] [place] [address] Scheduled Procedures Name Priority Associated Diagnoses Date/Ti me ABLATION A-FIB Atrial fibrillation with RVR Cardiomyopathy, dilated, nonischemic Essential hypertension documented as of this encounter Visit Diagnoses Not on filedocumented in this encounter Care Teams Water And Sewer Systems Superintendent Relationship Specialty Start Date End Date Cheko Heredia MD [address] [place] [address] PCP - General Family Medicine 01/10/22 documented as of this encounter
--- OUTSIDE RECORDS SUMMARY | 2025-04-14 13:41 | XMS_ITS | Encounter Summary ---
[facility] Address [address] [place] [address] Care Team Providers Care Airport Maintenance Laborer Name Role Phone Cheko Heredia MD Primary Care Provider + Reason for Visit * Reason Comments Med Refill Encounter Details Date Type Department Care Team (Late Contact Info) Description 02/25/2025 Refill [facility] MEDICINE [address] [place] [address] Cheko Heredia MD [address] [place] [address] Chronic midline low back pain [...] Industry Job Start Date Job End Date [employer] Not on file Not on file Not on file documented as of this encounter Plan of Treatment Upcoming Encounters Date Type Department Care Team (Late st Contact Info) Description 06/13/2025 3:00 PM EDT Office Visit [facility]INE [address] [place] [address] Cheko Heredia MD [address] [place] [address] 12/12/2025 2:15 PM EDT Office Visit [facility] [address] [place] [address] Cheko Hereida MD [address] [place] [address] Scheduled Procedures Name Priority Associated Diagnoses Date/Ti me ABLATION A-FIB Atrial fibrillation with RVR Cardiomyopathy, dilated, nonischemic Essential hypertension documented as of this encounter Visit Diagnoses Diagnosis Chronic midline low back pain without sciatica documented in this encounter Care Teams Airport Maintenance Laborer Relationship Specialty Start Date End Date Cheko Heredia MD [address] [place] [address] PCP - General Family Medicine 01/10/22 documented as of this encounter
--- OUTSIDE RECORDS SUMMARY | 2025-04-14 13:42 | XMS_ITS | Encounter Summary ---
Author Organization [employer] ([place], [place], [place], [place]) Address [address] [place] [address] Care Team Providers Care Wet Mix Operator Name Role Phone Unavailable Primary Care Provider Unavailabl e Encounter Details Date Type Department Care Team (Late st Contact Info) Description 02/09/2019 Transcribed Document [facility] [place] [facility] [place] [address] ProviderSoham MD [facility] [place] [address] Social History Tobacco Use Types [...] Soham ProviderMD - 02/09/2019 8:33 AM CDT [facility] Main OR Preop Summary Primary Physician: EZ ODOM MD-URO Finalized Date/Time: 02/09/19 09:15:02 Pt. Name: MINO HSU /Sex: 1945 Male Med Rec #: [id number] Physician: EZ ODOM MD-URO Financial #: [id number] Pt. Type: O Room/Bed: /4 Admit/Disch: 02/09/19 06:12:00 - Institution: [facility] PreOp Case Times Entry 1 In Preop 02/09/19 06:27:00 Ready for Holding n/a Room Patient Ready for 02/09/19 07:23:00 Surgery Patient Out of Preop 02/09/19 08:15:00 Patient Out of n/a Holding Room Last Modified By: Reisner, Vielka, RN 02/09/19 09:15:01 [facility] PreOp Case Times Audit 02/09/19 09:15:01 Bulb Grower: GIBRAN Modifier: REISNERK <+> 1 Patient Out of Preop 02/09/19 07:31:13 Bulb Grower: GIBRAN Modifier: REISNERK <+> 1 In Preop Finalized By: Vielka Dillon, RN Document Signatures Signed By: Vielka Dillon RN 02/09/19 09:15 Electronically signed by Tasha [facility] Conversion Electrogalvanizing Machine Operator Cerner at 12/30/2022 10:00 AM CDT documented in this encounter Plan of Treatment Not on file documented as of this encounter Visit Diagnoses Not on filedocumented in this encounter
--- OUTSIDE RECORDS SUMMARY | 2025-04-14 13:42 | XMS_ITS | Referral Summary ---
Author Organization [employer] ([place], [place], [place], [place]) Address [address] [place] [address] Care Team Providers Care Upholstery Mechanic Name Role Phone Unavailable Primary Care Provider [...]
--- OUTSIDE RECORDS SUMMARY | 2025-04-14 13:42 | XMS_ITS | Encounter Summary ---
Author Organization [place] [address] Care Team Providers Care Aircrewman Name Role Phone Unavailable Primary Care Provider Unavailabl e Reason for Visit * Reason Onset Date Comments Other 04/04/2025 Encounter Details Date Type Department Care Team (Late st Contact Info) Description 04/04/2025 Telephone Structural Hrt/Valve [address] [facility] [address] [place] [phone] Renetta Conklin RN Other Social History Tobacco [...]
--- OUTSIDE RECORDS SUMMARY | 2025-04-14 13:42 | XMS_ITS | Clinical Summary ---
Author Organization [facility] [place] Address [address] [facility] [address] [place] [address] Phone Care Team Providers Care Trimming Machine Set Up Operator Name Role Phone Unavailable Primary Care [...] (08/06/2021): Added automatically from request for surgery [id number] Paroxysmal atrial fibrillation 07/27/2021 Assessment & Plan [...] Team Description 04/04/2025 Telephone Structural Hrt/Valve [address] [facility] [address] [place] [address] Renetta Conklin RN Other 03/30/2025 1:30 PM EDT Office Visit [facility] [address] [facility] [place] [address] Edis Garza MD Atrial fibrillation [...] Anxiety Hypertension Systolic HF (heart failure) ([facility]) 11/01/2016 Echocardiogram 08/22/2016: EF 30%, moderate MR, mild pulmonary hypertension Cardiomyopathy, dilated, non ischemic (HCC) 10/17/2016 Pleural effusion 09/01/2016 GERD (gastroesophageal reflux disease) Carotid artery stenosis 01/30/2016 1. Carot id ultrasound, 06/06/2015, suggests total occlusion involving the right internal carotid artery with 50% to 69% occlusion to the left internal carotid artery. Coronary artery disease invo lving [employer] coronary artery of [employer] heart without angina pectoris 01/30/2016 Hyperlipemia Arthritis [...] mg/dL 08/14/2021 8:44 AM EST [facility] [employer] [facility] Comment: < 200 Desirable 200 - 239 Borderline High >= 240 High Triglyceride 148 <150 mg/dL 08/14/2021 8:44 AM EST [facility] [employer] [facility] Comment: < 150 Normal 150 - 199 Borderline High 200 - 499 High >= 500 Very High HDL 41 >=40 mg/dL 08/14/2021 8:44 AM EST [facility] [employer] [facility] Comment: > 60 Optimal 40 - 60 Acceptable < 40 Low LDL Calculated 89 <100 mg/dL 08/14/2021 8:44 AM EST [facility] [employer] [facility] Comment: < 100 Optimal 100 - 129 Near or above optimal 130 - 159 Borderline High 160 - 189 High >= 190 Very High Non-HDL-C Calculated 115 <=129 mg/dL 08/14/2021 8:44 AM EST [facility] [employer] [facility] Comment: <130 Desirable 130-159 Above Desirable 160-189 Borderline High 190-219 High >= 220 Very High Fasting Specimen? 021 8:44 AM EST [facility] [employer] [facility] Blood VENOUS BLOOD / Unknown Venipuncture / Unknown 08/14/2021 6:08 AM EST 08/14/2021 6:19 AM EST us Eliezer Andujar MD CHEMISTRY ORDERABLES Final Resul t [facility] [facility] [address] [facility] , [place] [address] * (ABNORMAL) BASIC METABOLIC PANEL (08/14/2021 6:08 AM EST) Sodium 141 136 - 145 mmol/L 08/14/2021 6:55 AM EST [facility] [employer] [facility] Potassium 4.0 3.5 - 5.0 mmol/L 08/14/2021 6:55 AM EST [facility] [employer] [facility] Chloride 105 98 - 107 mmol/L 08/14/2021 6:55 AM EST [facility] [employer] Total CO2 28 22 - 29 mmol/L 08/14/2021 6:55 AM EST [facility] Anion Gap 8 7 - 16 mmol/L 08/14/2021 6:55 AM EST [facility] Calcium 9.3 8.8 - 10.4 mg/dL 08/14/2021 6:55 AM EST [facility] Glucose Lvl 123(H) 82 - 100 mg/dL 08/14/2021 6:55 AM EST [facility] BUN 23 8 - 23 mg/dL 08/14/2021 6:55 AM EST [facility] Creatinine 1.13 0.67 - 1.30 mg/dL 08/14/2021 6:55 AM EST [facility] eGFR (CKD-EPIcr 2020) 68 >=60 mL/min/1.7 3 m2 08/14/2021 6:55 AM EST [facility] Comment:Estimated GFR was ca lculated using the CKD-EPIcr (2020) equation refit without race. The equation is recommended by the National Kidney Foundation - [place] [employer] of Nephrology Task Force. Blood VENOUS BLOOD / Unknown Venipuncture / Unknown 08/14/2021 6:08 AM EST 08/14/2021 6:19 AM EST us Skip Jimenez) Belen SUTTON CHEMISTRY ORDER ZORAIDA Final Result [facility], [facility] [address] [facility], [address] [place] [id number] [facility] [address] [place] [address] * (ABNORMAL) HEMOGLOBIN A1C (08/13/2021 6:31 AM EST) Hgb A1C 6.5(H) 4.2 - 5.6 % 08/13/2021 7:17 AM EST [facility] Est. Avg Glucose 140 mg/dL 08/13/2021 7:17 AM EST [facility] Blood VENOUS BLOOD / Unknown Venipuncture / Unknown 08/13/2021 6:31 AM EST 08/13/2021 6:43 AM EST Narrative [facility] - 08/13/2021 7:17 AM EST REFERENCE [...] CHEMISTRY ORDER ZORAIDA Final Result [facility] [address] [facility] , [place] [address] from Last 3 Months or Most Recently Relevant to Health Maintenance Insurance MEDICARE SUPPLEMENT MEDICARE [place] PART A [place] B [place]ICARE [place] B MEDIC[place]MENT Advance Directives For more information, please contact: [phone] * Full Code (Latest Code Status on File) Date Activated Date Inactivated Comments 08/12/2021 8:49 PM 08/14/2021 8:54 PM
--- OUTSIDE RECORDS SUMMARY | 2025-04-14 13:42 | XMS_ITS | Encounter Summary ---
Author Organization [employer] ([place], [place], [place], [place]) Address [address] [place] [address] Care Team Providers Care Special Assemblies Supervisor Name Role Phone Unavailable Primary Care Provider Unavailabl e Encounter Details Date Type Department Care Team (Late st Contact Info) Description 02/09/2019 Transcribed Document [facility] [place] Family Medicine [facility] [place] [address] ProviderSoham MD [facility] [place] [address] Social History Tobacco Use Types [...] INTRAVENOUS FLUIDS: See Anesthesia record. DRAINS: A 20-Maldivian coude catheter with 30 mL of sterile water in the balloon. OPERATIVE INDICATIONS: Mr. Hsu is a 73-year-old gentleman with a history of lower urinary tract symptoms, which have been refractory to five 5-bwaya-qzfcofgfo inhibitors, in addition the patient has been [...] the case. 4. Successful placement of a 20-Maldivian coude catheter with 30 mL of sterile [...] sheath. We therefore dilated the patient from 24-Maldivian to 28-Maldivian utilizing male urethral sounds due to the patient having undergone a previous inflatable penile prosthesis placement. We were very elena and we were very gentle in our dilation and this was noted to be atraumatic as there was no urethral bleeding during this. We then successfully introduced the 28-Maldivian continuous-flow resectoscope sheath again with the inner [...] Uro-Jet for local anesthesia and inserted a 20-Maldivian two-way coude catheter with 30 mL sterile [...] M.D. Electronically signed by Bhupinder [employer] Conversion Print Production Associate Amyner at 12/30/2022 9:49 AM CDT documented in this encounter Plan of Treatment Not on file documented as of this encounter Visit Diagnoses Not on filedocumented in this encounter
--- OUTSIDE RECORDS SUMMARY | 2025-04-14 13:42 | XMS_ITS | Encounter Summary ---
[facility] Address [address] [place] [address] Care Team Providers Care Hoisting Pile Driving Engineer Name Role Phone Cheko Heredia MD Primary Care Provider + Reason for Visit * Reason Onset Date Comments Med Refill 04/12/2025 Encounter Details Date Type Department Care Team (Late st Contact Info) Description 04/12/2025 Refill [facility] MEDICINE [address] [place] [address] Cheko Heredia MD [address] [place] [address] Chronic pain syndrome; Spondylosis of [...] Industry Job Start Date Job End Date [employer] Not on file Not on file Not on file documented as of this encounter Miscellaneous Notes * Telephone Encounter - Yvonne Pardo MA - 04/13/2025 10:01 AM EDT Rx Refill Note Requested Prescriptions Pending Prescriptions Disp Refills oxyCODONE-acetaminophen (PERCOCET) 5-325 MG per tablet 90 tablet 0 Sig: Take 1 tablet by mouth Every 8 (Eight) Hours As Needed for Severe Pain. Last office visit with prescribing clinician: 03/11/2025 Last telemedicine visit with prescribing clinician: Visit date not found Next office visit with prescribing clinician: 06/13/2025 Would you like a call back once the refill request has been completed: [] Yes [] No If the office needs to give you a call back, can they leave a voicemail: [] Yes [] No Yvonne Pardo MA 04/13/25, 10:01 EDT * Telephone Encounter - Toshia Meneses RegSched Rep - 04/12/2025 11:14 AM EDT Caller: Mino Hsu Relationship: Self Best call back number: Telephone Information: Requested Prescriptions: Requested Prescriptions Pending Prescriptions Disp Refills oxyCODONE-acetaminophen (PERCOCET) 5-325 MG per tablet 90 tablet 0 Sig: Take 1 tablet by mouth Every 8 (Eight) Hours As Needed for Severe Pain. Pharmacy where request should be sent: [facility] - [place], [place] - [address] [facility] [phone] [facility] [phone] Last office visit with prescribing clinician: 03/11/2025 Last telemedicine visit with prescribing clinician: Visit date not found Next office visit with prescribing clinician: 06/13/2025 Does the patient have less than a 3 day supply: [x] Yes [] No Charlie Kat 04/12/25 11:15 EDT documented in this encounter Plan of Treatment Upcoming Encounters Date Type Department Care Team (Late st Contact Info) Description 06/13/2025 3:00 PM EDT Office Visit [facility] [address] [place] [address] Cheko Heredia MD [address] [place] [address] 12/12/2025 2:15 PM EDT Office Visit [facility] [address] [place] [address] Cheko Heredia MD [address] [place] [address] Scheduled Procedures Name Priority Associated Diagnoses Date/Ti me ABLATION A-FIB Atrial fibrillation with RVR Cardiomyopathy, dilated, nonischemic Essential hypertension documented as of this encounter Visit Diagnoses Diagnosis Chronic pain syndrome Spondylosis of lumbar region without myelopathy or radiculopathy documented in this encounter Care Teams Hoisting Pile Driving Engineer Relationship Specialty Start Date End Date Cheko Heredia MD [address] [place] [address] PCP - General Family Medicine 01/10/22 documented as of this encounter
--- OUTSIDE RECORDS SUMMARY | 2025-04-14 13:42 | XMS_ITS | Encounter Summary ---
Author Organization [facility] ([place], [place], [place], [place]) Address [address] [place] [address] Care Team Providers Care Swim Coach Name Role Phone Unavailable Primary Care Provider Unavailabl e Encounter Details Date Type Department Care Team (Late st Contact Info) Description 02/09/2019 Transcribed Document [facility] [place] [facility] [place] [address] ProviderSoham [place] [address] Social History Tobacco Use Types [...] Soham ProviderMD - 02/09/2019 8:33 AM CDT [facility] Main OR IntraOp Summary Primary Physician: EZ ODOM MD-URO Finalized Date/Time: 02/10/19 10:14:52 Pt. Name: MINO BROWN Rudi /Sex: 1945 Male Med Rec #: [id number] Physician: EZ ODOM MD-URO Financial #: [id number] Pt. Type: O Room/Bed: /4 Admit/Disch: 02/09/19 06:12:00 - 02/09/19 10:22:00 Institution: [facility] IntraOp Case Attendance Entry 1 Entry 2 Entry 3 Case Attendee EZ ODOM CORNEA, MIHAELA, MD BREITIGAN, STEPHEN, CRNA MD-URO Role Performed Surgeon/Proceduralist, Anesthesiologist of WEATHERIZATION OPERATIONS MANAGER/Nurse Design Printing Machine Set Up Operator First Record Time In 02/09/19 08:17:00 02/09/19 [...] HERO DOUGLAS MD Madden, Jerrild Role Performed Hadoop Software Engineer, First Resident Laser Shipper And Receiving Time In 02/09/19 08:17:00 02/09/19 08:17:00 02/09/19 [...] Modified By: Swapna Vasquez RN 02/09/19 09:27:39 [facility] IntraOp Case Attendance Audit 02/09/19 09:27:39 Podiatric Surgeon: KARINA Modifier: KARINA 1 <+> Time Out [...] 7 <*> Procedure Prostate Green Light Laser [facility] IntraOp Case Times Entry 1 Patient In Room Time 02/09/19 08:17:00 Out Room Time 02/09/19 09:27:00 Anesthesia Start Time 02/09/19 08:17:00 Stop Time 02/09/19 09:27:00 Surgery / Procedure Times Start Time 02/09/19 08:33:00 Stop Time 02/09/19 09:16:00 Last Modified By: Swapna Vasquez RN 02/09/19 09:27:27 [facility] IntraOp Case Times Audit 02/09/19 09:27:27 Podiatric Surgeon: KARINA Modifier: POFFJAN <+> 1 Out Room Time <+> 1 Stop Time 02/09/19 09:16:05 Podiatric Surgeon: MANUELFFKULWINDER Modifier: POFFJAN <+> 1 Stop Time [facility] IntraOp Communication Entry 1 Communication To Family/Significant other Comment Start Communication By Swapna Vasquez RN Date and Time 02/09/19 08:33:00 Last Modified By: Swapna Vasquez RN 02/09/19 08:44:49 [facility] IntraOp Delays Entry 1 Delay Reason Surgeon late - no reason Duration 17 Minute(s) Comment surgeon at bedside at 0810 Last Modified By: Swapna Vasquez RN 02/09/19 08:37:30 [facility] IntraOp Departure from OR Entry 1 Integumentary Assessment Integumentary WDL Assessment WDL Transfer/Handoff Transfer to PACU Phase I Handoff Method Phone call Handoff Reported to JEFFERSON MATHUR RN Post-op Transport Stretcher/Gurney Via Patient Transport ALEX CORDERO, Accompanied by CHANDA MOLINA JOHN, MD Last Modified By: Swapna Vasquez RN 02/09/19 09:27:52 [facility] IntraOp Departure from OR Audit 02/09/19 09:27:52 Podiatric Surgeon: POFFJAN Modifier: POFFJAN <+> 1 Handoff Reported to 02/09/19 09:19:07 Podiatric Surgeon: POFFJAN Modifier: POFFJAN <+> 1 Patient Transport Accompanied by [facility] IntraOp Fire Risk Assessment Entry 1 Fire [...] Modified By: Swapna Vasquez RN 02/09/19 08:41:29 [facility] IntraOp General Case Investigator 1 Case Information OR OR 03 [facility] Case Level 1 Room Verified Yes Wound Class II - Clean-Contaminated Specialty SN Urology Anesthesia Type General ASA Class 3 Diagnosis 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 Postop Same As Preop Yes 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 Last Modified By: Swapna Vasquez RN 02/09/19 09:00:23 [facility] IntraOp General Case Data Audit 02/09/19 09:00:23 Podiatric Surgeon: MANUELLEWISKULWINDER Modifier: POEDSON <+> 1 Postop Same As Preop <+> 1 Preop Diagnosis <+> 1 Postop Diagnosis [facility] IntraOp Intraoperative Assessment Entry 1 Handoff Method [...] Modified By: Swapna Vasquez RN 02/09/19 08:43:17 [facility] IntraOp Intraoperative Equipment Entry 1 Type Monitoring Equipment Intraop Monitoring Electrocardiogram Three lead placement (ECG) Electrode Placement Blood Pressure Non-Invasive BP Device Source Blood Pressure Arm, right upper Location Pulse Oximeter Hand, left Probe Site Antiembolic Devices Antiembolic Devices Sequential compression device, knee high Antiembolic Device Bilateral Location Antiembolic Device [id number] ID Number Scopes Photo/Video Documentation Photo No Video No Intraop Equipment Sequential compression Comment devices on and in operation prior to induction of anesthesia. Last Modified By: Swapna Vasquez RN 02/09/19 08:44:16 [facility] IntraOp Medication Admin Entry 1 Entry 2 Entry 3 Medication/Irrigant ZIGGY IRR 0.9% NACL B&O 16A Suppository - ZIGGY IRR NACL 0.9PCT 1000ML --[id number] Combo Med List Time Administered 02/09/19 08:33:00 [...] Medication/Irrigant lidocaine 2% urojet 10ml jelly - [id number] Combo Med List Time Administered 02/09/19 09:14:00 Route of Local, urethra Administration Dose Dose 10 Unit of Measure ml Volume Administered By HERO ARMAS MD Procedure Irrigation Irrigant Volume In Irrigant Volume Out Last Modified By: Swapna Vasquez RN 02/09/19 09:18:40 [facility] IntraOp Medication Admin Audit 02/09/19 09:18:40 Podiatric Surgeon: KARINA Modifier: KARINA 1 <*> Administered By EZ ODOM MD-URO 1 <+> Irrigant Volume In 1 <+> Irrigant Volume Out 2 <*> Medication/Irrigant B&O 16A Suppository - [id number] 2 <+> Dose 2 <+> Time Administered 3 <*> Medication/Irrigant ZIGGY IRR NACL 0.9PCT [id number] 3 <+> Irrigant Volume In 3 <+> Irrigant Volume Out 4 <*> Medication/Irrigant lidocaine 2% urojet 10ml jelly - [id number] 4 <+> Time Administered 02/09/19 08:47:57 Podiatric Surgeon: KARINA Modifier: KARINA <+> 4 Medication/Irrigant <+> 4 Route of Administration <+> 4 Administered By <+> 4 Dose <+> 4 Unit of Measure [facility] IntraOp Patient Positioning Entry 1 Procedure Prostate [...] Modified By: Swapna Vasquez RN 02/09/19 08:41:05 [facility] IntraOp Sign In Entry 1 Patient, Site, [...] Modified By: Swapna Vasquez RN 02/09/19 08:37:40 [facility] IntraOp Sign Out Entry 1 RN Confirmation [...] Modified By: Swapna Vasquez RN 02/09/19 09:27:35 [facility] IntraOp Sign Out Audit 02/09/19 09:27:35 Podiatric Surgeon: KARINA Modifier: KARINA <+> 1 RN Sign Out Signature Date/Time 02/09/19 09:18:55 Podiatric Surgeon: KARINA Modifier: KARINA <+> 1 Urinary Catheter Documented in IView [facility] IntraOp Skin Prep Entry 1 Procedure Prostate Green Light Laser Prescribed Yes Pre-Surgical Prep Completed Prep Area Genitalia Intraop Prep Integumentary WDL Assessment WDL Prep Agents Betadine solution Prep by Swapna Vasquez RN Hair Removal Last Modified By: Swapna Vasquez RN 02/09/19 08:43:49 [facility] IntraOp Surgical Procedures Entry 1 Procedure Prostate Green Light Laser Additional GREENLIGHT LASER OF Procedure PROSTATE Description Primary Procedure Yes Primary Surgeon EZ ODOM MD-URO Start 02/09/19 08:33:00 Stop 02/09/19 09:16:00 Anesthesia Type General Specialty SN Urology Wound Class II - Clean-Contaminated Last Modified By: Swapna Vasquez RN 02/09/19 09:16:11 [facility] IntraOp Surgical Procedures Audit 02/09/19 09:16:11 Podiatric Surgeon: KARINA Modifier: KARINA <+> 1 Stop [facility] IntraOp Temp Regulation Devices Entry 1 Temp Regulation Temperature Warm blankets, Room Regulation Device temperature Temperature Upper body Regulation Site Temperature Swapna Vasquez RN Regulation Device Applied by Temperature Patient's temperature Regulation Comment monitored by anesthesia provider. Forced air warming device settings controlled by anesthesia provider. Last Modified By: Swapna Vasquez RN 02/09/19 08:44:27 [facility] IntraOP Time Out Entry 1 Procedure to [...]
--- OUTSIDE RECORDS SUMMARY | 2025-04-14 13:42 | XMS_ITS | Encounter Summary ---
Author Organization [facility] Address [address] [place] [id number] Care Team Providers Care Food And Drug Inspector Name Role Phone Cheko Heredia MD Primary Care Provider + Encounter Details Date Type Department Care Team (Late st Contact Info) Description 12/12/2014 External CPT II DIABETES EDUCATION COORDINATOR - [employer] [facility] Social History Tobacco Use [...] Description 06/13/2025 3:00 PM EDT Office Visit [facility] MEDICINE [address] [place] [address] Cheko Heredia MD [address] [facility] [place] [address] 12/12/2025 2:15 PM EDT Office Visit [facility] MEDICINE [address] [place] [address] Cheko Heredia MD [address] [place] [address] Scheduled Procedures Name Priority Associated Diagnoses Date/Ti me ABLATION A-FIB Atrial fibrillation with RVR Cardiomyopathy, dilated, nonischemic Essential hypertension documented as of this encounter Visit Diagnoses Not on filedocumented in this encounter Care Teams Food And Drug Inspector Relationship Specialty Start Date End Date Cheko Heredia MD [address] [place] [address] PCP - General Family Medicine 01/10/22 documented as of this encounter
--- OUTSIDE RECORDS SUMMARY | 2025-04-14 13:42 | XMS_ITS | Clinical Summary ---
Author Organization [facility] Address [address] [place] [address] Care Team Providers Care Dumpster Operator Name Role Phone Cheko Heredia MD Primary Care Provider + Allergies Active Allergy Reactions Criticality Noted Date Comments Sulfa Antibiotics Nausea Only Medium 05/27/2019 Medications [place]-3 Fatty Acids (FISH OIL) 1000 MG capsule capsule Take 1 capsule by mouth Daily With Breakfast. Active PSYLLIUM HUSK PO Take 0.4 g by mouth Daily. Active Apoaequorin (PREVAGEN PO) Take by mouth. Active ranolazine (RANEXA) 1000 MG 12 hr tablet Take 1 tablet by mouth Every 12 (Twelve) Hours. 3 Active amiodarone (PACERONE) 200 MG tablet Take 0.5 tablets by mouth Daily. 4 Active FLUoxetine (PROzac) 20 MG capsule Take 1 capsule by mouth Daily. 4 Active losartan (COZAAR) 25 MG tabletIndications:H ypertension Take 2 tablets by mouth Daily. Indications: High Blood Pressure 4 Active cyclobenzaprine (FLEXERIL) 5 MG tablet Take 1 tablet by mouth 3 (Three) Times a Day As Needed. 4 Active Xarelto 15 MG tablet Take 1 tablet by mouth Daily With Dinner. 4 Active metoprolol succinate XL (TOPROL-XL) 25 MG 24 hr tablet Take 0.5 tablets by mouth Every Other Day. 4 Active tamsulosin (FLOMAX) 0.4 MG capsule 24 hr capsule TAKE ONE CAPSULE BY MOUTH EVERY NIGHT AT BEDTIME 30 capsule 11 5 Active pantoprazole (PROTONIX) 40 MG EC tablet Take 1 Tablet by mouth once daily. 30 tablet 11 5 Active albuterol sulfate HFA 108 (90 Base) MCG/ACT inhalerIndications: Shortness of breath Inhale 2 Puffs into the lungs every 4 hours as needed for Wheezing. 8.5 g 5 5 Active atorvastatin (LIPITOR) 10 MG tabletIndications:M ixed hyperlipidemia Take 1 Tablet by mouth once daily. 90 tablet 3 5 Active DULoxetine (CYMBALTA) 60 MG capsuleIndications: Chronic midline low back pain without sciatica Take 1 Capsule by mouth once daily. 30 capsule 4 5 Active nitroglycerin (NITROSTAT) 0.4 MG SL tablet DISSOLVE 1 TABLET UNDER THE TONGUE NEEDED FOR CHEST PAIN. REPEAT EVERY 5 MINUTES 3 TIMES. IF NO RELIEF GO TO ER. 25 tablet 11 5 Active Jardiance 10 MG tablet tabletIndications:T ype 2 diabetes mellitus with hyperglycemia, without long-term current use of insulin Take 1 Tablet by mouth once daily. 30 tablet 2 5 Active oxyCODONE-acetamino phen (PERCOCET) 5-325 MG per tabletIndications:C hronic pain syndrome,Spondylosi s of lumbar region without myelopathy or radiculopathy Take 1 tablet by mouth Every 8 (Eight) Hours As Needed for Severe Pain. 90 tablet 5 Active diazePAM (VALIUM) 5 MG tabletIndications:C hronic pain syndrome,Anxiety about health Take 1 tablet by mouth Every 12 (Twelve) Hours As Needed for Anxiety. 60 tablet 2 5 Active Active Problems Problem Noted Date Diagnosed [...] (Eight) Hours As Needed for Severe Pain. [facility] prescription opiate use 01/10/2022 Chronic systolic heart failure 11/01/2016 Overview (11/01/2016): Echocardiogram 08/22/2016: EF 30%, moderate MR, mild pulmonary hypertension Ischemic cardiomyopathy 10/17/2016 Generalized weakness 09/01/2016 Pleural effusion 09/01/2016 Paroxysmal atrial fibrillation 08/31/2016 Assessment & Plan (12/10/2024 3:47 PM EDT): Orders: TSH Rfx On Abnormal To Free T4 Persistent atrial fibrillation 07/11/2016 Overview (11/01/2016): Diagnosed at [facility] with initiation of Xarelto and amiodarone, June [...] ventricular rate of 82 beats per minute. W[place] interval 164 milliseconds, QRS duration 96 milliseconds, QTC 418 milliseconds. Coronary artery disease invo lving [place] coronary artery of [place] heart without angina pectoris 01/30/2016 Overview (07/11/2016): [...] 2010 - Chest pain with catheterization revealing GINNER HELPER of RCA collateralized, normal LVEF. Unchanged from prior. January 2016 -- cardiac catheterization by Rudolph Jj revealing GINNER HELPER of RCA (collateralized) and 90% stenosis of [...] Encounters Date Type Department Care Team Description 04/12/2025 Refill [facility] [address] [place] [address] Cheko Heredia MD Chronic pain syndrome; Spondylosis of lumbar region without myelopathy or radiculopathy 03/11/2025 2:00 PM EDT Office Visit [facility] [address] [place] [address] Cheko Heredia MD Type 2 diabetes mellitus with hyperglycemia, without long-term current use of insulin (Primary Dx); Chronic pain syndrome; Chronic pain syndrome; Spondylosis of lumbar region without myelopathy or radiculopathy; Anxiety about health 03/11/2025 Travel 03/10/2025 Refill [facility] [address] [place] [address] Cheko Heredia MD Type 2 diabetes mellitus with hyperglycemia, without long-term current use of insulin 02/25/2025 Refill [facility] [address] [place] [address] Cheko Heredia MD Chronic midline low back pain without sciatica 02/09/2025 Refill [facility] [address] [place] [address] Cheko Heredia MD Mixed hyperlipidemia 02/08/2025 Refill [facility] MED[facility] [address] [facility] [place] [address] Cheko Heredia MD Chronic pain syndrome; Spondylosis of lumbar region without myelopathy or radiculopathy 01/12/2025 Refill [facility] MEDICINE [address] [place], [place] [address] Cheko Heredia MD Shortness of breath from Last 3 Months Immunizations Immunization Administration [...] Industry Job Start Date Job End Date [employer] Not on file Not on [...] EDT Office Visit [facility] [address] [place] [address] Cheko Heredia MD [address] [place] [address] 12/12/2025 2:15 PM EDT Office Visit [facility] MEDICINE [address] [place] [address] Cheko Heredia MD [address] [place] [address] Scheduled Procedures Name Priority Associated [...] Additional history exists HEMOGLOBIN A1C 06/12/2025 12/10/2024, 2 12/2023, 08/26/2023, Additional history exists INFLUENZA VACCINE 06/15/2025 08/09/2024, , 07/21/2023, Additional history exists ANNUAL WELLNESS VISIT 12/10/2025 12/10/2024 , 12/10/2024, 08/26/2023, Additional history exists LIPID PANEL 12/10/2025 12/10/2024, 09/0 11/2023, 08/26/2023, Additional history exists URINE MICROALBUMIN-CREATININ E RATIO (uACR) 12/10/2025 12/10/2024 COLONOSCOPY 07/29/2034 07/29/2024, 04/16, 05/05/2020, Additional history exists COLORECTAL CANCER SCREENING 07/29/2034 LUNG CANCER SCREENING Discontinued 05/16/2016 Medical Devices Implanted Type Area Electronic News Gathering Camera Person Device Identifier Shelf Expiration Date Model / Serial / Lot Stent Stent Stent Description:3 cardiac stents Stent Description:3 cardiac stents Stent Description:3 cardiac stents Procedures Procedure Name Priority Date/Time Associated Diagnosis Comments SCANNED EKG 04/07/2025 SCANNED EKG 04/07/2025 SCANNED - IMAGING 04/07/2025 SCANNED - IMAGING 04/07/2025 SCANNED - [...] IMAGING SCANNED (04/07/2025) Only the most recent of3 resultswithin the time period is included. Anatomical Region Laterality Modality Radiographic Susanne ging Result [facility] Cheko Heredia MD IMG DIAGNOSTIC IMAGING O RDERABLES Final Result * POC Albumin/Creatinine Ratio Urine (12/10/2024 3:26 PM EDT) POC ALBUMIN, URINE 30 mg/L POC CREATININE, URINE 100 mg/dL POC Urine Albumin Creatinine Ratio <30 mg/g <30 Comment:normal Lot Number [id number] Expiration Date 10/15/2025 Urine 12/10/2024 3:26 PM EDT Result [facility] Cheko Heredia MD POINT OF CARE TEST ORDER ZORAIDA Final Result * (ABNORMAL) Hemoglobin A1c (12/10/2024 3:04 PM EDT) Hemoglobin A1C 6.5(H) 4.8 - 5.6 % [facility] Comment: Prediabetes: 5.7 - 6.4 Diabetes: >6.4 Glycemic control for adults with diabetes: <7.0 Blood 12/10/2024 3:04 PM EDT 12/10/2024 Narrative [facility] (AMBULATORY) - 12/11/2024 6:09 AM EDT Performed at: [facility] [id number] Head Start Coordinator: Jose Weller PhD, Phone: [phone] Patient Fasting: Y Result [facility] Cheko Heredia MD LAB BLOOD ORDERABLES Fin al Result Performing Organization Address City/[facility]/ZIP Co de Phone Number [facility] (AMBULATORY) [address] [place] [address], [facility] [address] [place] [address], [place] [phone] * (ABNORMAL) Lipid Panel (12/10/2024 3:04 PM EDT) Total Cholesterol 152 100 - 199 mg/dL [facility] Triglycerides 243(H) 0 - 149 mg/dL [facility] HDL Cholesterol 52 >39 mg/dL [facility] VLDL Cholesterol Kirt 39 5 - 40 mg/dL [facility] LDL Chol Calc (NIH) 61 0 - 99 mg/dL [facility] Blood 12/10/2024 3:04 PM EDT 12/10/2024 Narrative [facility] (AMBULATORY) - 12/11/2024 6:09 AM EDT Performed at: 01 - [facility] [address] [place] [id number] Head Start Coordinator: Jose Weller PhD, Phone: [phone] Patient Fasting: Y Cheko Heredai MD LAB BLOOD ORDERABLES Fin al Result Performing Organization Address City/[facility] Co de Phone Number [facility] [address] [place] [address], [place] [phone] [facility] [address] [place] [address], * SCANNED - INFLUENZA (07/21/2023) [facility] CHART REVIEW TABS Final Re sult from Last 3 Months or Most Recently Relevant to Health Maintenance Insurance MEDICARE A & B [facility] SUPP Advance Directives * Full Code (Latest Code Status on File) Date Activated Date Inactivated Comments 09/01/2016 12:25 AM 09/02/2016 3:37 PM Care Teams Dumpster Operator Relationship Specialty Start Date End Date Cheko Heredia MD [address] [place], [place] [address] [address] PCP - General Family Medicine 01/10/22
--- OUTSIDE RECORDS SUMMARY | 2025-04-14 13:42 | XMS_ITS | Encounter Summary ---
Author Organization [employer] ([place], [place], [place], [place]) Address [address] [place] [address] Care Team Providers Care Cause Analyst Name Role Phone Unavailable Primary Care Provider Unavailabl e Encounter Details Date Type Department Care Team (Late st Contact Info) Description 01/27/2019 Transcribed Document [facility] [place] [address] [place] [address] ProviderSoham MD [address] [place] [address] Social History Tobacco Use Types [...] Source : Measured Height Entry Format : Vinson Height, Feet : 0 ft(Converted to: 0 cm, 0 Inch) Height, Inches : 72 Inch(Converted to: 6 ft 0 Inch, 182.88 cm) Clinical Height : 182.88 cm Weight Source : Standing scale Weight Entry Format : Vinson Clinical Dosing Weight : 90.91 kg Weight, Pounds : 200 lb Body Surface Area (BSA) : 2.13 m2 Body Mass Index : 27.2 kg/m2 (HI) [place] Body Weight : 77 kg Vielka Dillon [...] No. (Last Updated: 01/27/2019 17:17:53 EDT by nAali Hannah RN) Substance Abuse: Drug Use Hx: [...] : Living will, Medical durable power of consumer attorney (proxy) Copy Advance Directive Verified/on Chart [...] RN - 02/05/2019 12:50 EDT Support Person/Patient Senior Account Director : Yes Support Person/Pt Rep Name : Jesus Hammond- brother [phone] Want Family/Rep/Phys Notified of Admit : No Information Obtained From : Patient Primary Language : Palauan Preferred Communication Mode : Verbal Communication Barrier [...]
--- OUTSIDE RECORDS SUMMARY | 2025-04-14 13:42 | XMS_ITS | Encounter Summary ---
Author Organization [employer] ([place], [place], [place], [place]) Address [address] [place] [address] Care Team Providers Care Warehouse Forklift Operator Name Role Phone Unavailable Primary Care Provider Unavailabl e Encounter Details Date Type Department Care Team (Late st Contact Info) Description 02/09/[address] [facility] Medicine [facility] [place] [address] ProviderSoham MD [facility] [place] [address] Social History Tobacco Use [...] Soham ProviderMD - 02/09/2019 8:33 AM CDT [facility] Main OR PostOp Summary Primary Physician: EZ ODOM MD-URO Finalized Date/Time: 02/09/19 12:22:42 Pt. Name: HSUMINO BLANCHARD /Sex: 1945 Male Med Rec #: [id number] Physician: EZ ODOM MD-URO Financial #: [id number] Pt. Type: O Room/Bed: /4 Admit/Disch: 02/09/19 06:12:00 - Institution: [facility] Main OR PostOp Case Times Entry 1 In PACU II 02/09/19 10:36:00 Ready for PACU II 02/09/19 11:15:00 Discharge Discharge from PACU 02/09/19 12:22:00 II Last Modified By: EMELY HINSON, ERIK 02/09/19 12:22:27 [facility] Main OR PostOp Case Times Audit 02/09/19 12:22:27 Payroll And Benefits Coordinator: IESHA Modifier: IESHA 1 <*> Ready for PACU II Discharge 02/09/19 11:34:00 1 <+> Discharge from PACU II Finalized By: EMELY HINSON RN Document Signatures Signed By: EMELY HINSON RN 02/09/19 12:22 Electronically signed by Tasha Freeman [facility] Conversion Worship Director Cerner at 12/30/2022 9:37 AM CDT documented in this encounter Plan of Treatment Not on file documented as of this encounter Visit Diagnoses Not on filedocumented in this encounter
--- OUTSIDE RECORDS SUMMARY | 2025-04-14 13:42 | XMS_ITS | Encounter Summary ---
Author Organization [employer] ([place], [place], [place], [place]) Address [address] [place] [address] Care Team Providers Care Screw Machine Tool Setter Name Role Phone Unavailable Primary Care Provider Unavailabl e Encounter Details Date Type Department Care Team (Late st Contact Info) Description 02/09/2019 Transcribed Document [facility] [place] Family Medicine [place] [address] ProviderSoham MD [address] [place] [address] Social History Tobacco Use Types [...] 1945 Associated Diagnoses: None Author: SACHIN BERNAL, RUG SCRATCHER Chief Complaint BPH Review of Systems ROS [...] Stented coronary artery x3 / SNOMED CT 3308515316 / Confirmed Pneumonia / SNOMED CT 803226875 / Confirmed Hyperlipidemia / SNOMED CT 85679070 / Confirmed High blood pressure / SNOMED CT 23074211 / Confirmed Hemorrhoids / SNOMED CT 493113267 / Confirmed Hard of hearing, left ear / SNOMED CT 893489268 / Confirmed Disorder of prostate / SNOMED CT 01214335 / Confirmed Cataract / SNOMED CT 352428010 / Confirmed Back pain / SNOMED CT 5041231506 / Confirmed A-fib / SNOMED CT 54308873 / Confirmed, Active Problems (10) A-fib Back [...]
--- OUTSIDE RECORDS SUMMARY | 2025-04-14 13:42 | XMS_ITS | Encounter Summary ---
Author Organization [facility] Address [address] [place] [id number] Care Team Providers Care Party Coordinator Name Role Phone Cheko Heredia MD Primary Care Provider + Encounter Details Date Type Department Care Team (Late st Contact Info) Description 10/24/2014 External CPT II CLINICAL CYTOGENETICS DIRECTOR - [employer] Social History Tobacco [...] 3:00 PM EDT Office Visit [facility] [address] [place] [address] Cheko Heredia MD [address] [facility] [place] [address] 12/12/2025 2:15 PM EDT Office Visit [facility] [address] [place] [address] Cheko Heredia MD [address] [place] [address] Scheduled Procedures Name Priority Associated Diagnoses Date/Ti me ABLATION A-FIB Atrial fibrillation with RVR Cardiomyopathy, dilated, nonischemic Essential hypertension documented as of this encounter Visit Diagnoses Not on filedocumented in this encounter Care Teams Party Coordinator Relationship Specialty Start Date End Date Cheko Heredia MD [address] [place] [address] PCP - General Family Medicine 01/10/22 documented as of this encounter
--- OUTSIDE RECORDS SUMMARY | 2025-04-14 13:42 | XMS_ITS | Encounter Summary ---
Author Organization [employer] ([place], [place], [place], [place]) Address [address] [place] [address] Care Team Providers Care Solar Applications Development Engineer Name Role Phone Unavailable Primary Care Provider Unavailabl e Encounter Details Date Type Department Care Team (Late st Contact Info) Description 02/09/[address] [facility] [place] Family Medicine [facility] [place] [address] ProviderSoham MD [facility] [place] [address] Social History Tobacco Use Types [...] Soham ProviderMD - 02/09/2019 12:11 PM CDT [facility] [place] [address] MINO HSU :1945 Visit Time:02/09/2019 [...] EDT Comments Appointment has been made Where: [address] [place] [address]- [employer] (1) Medications What How Much When Instructions [...] on each side. Do this in a cyhsx-ak-idvq direction. ? If you are male: ? [...] and water are not available, use hand concrete analyst. ??? Always make sure there are no [...] 09/01/2006 Document Revised: 04/17/2018 Document Reviewed: 04/17/2018 Bizzby Interactive Patient Education ?? 2019 [employer]. Prostate Laser Surgery, Care After This [...] clear or pale yellow. Medicines ??? Take ghqw-lzd-izndchh and prescription medicines, including stool softeners, only [...] 09/01/2006 Document Revised: 04/18/2017 Document Reviewed: 04/18/2017 [employer] Interactive Patient Education ?? 2019 [employer]. Outpatient Surgery, Adult, Care After These instructions [...] and water are not available, use hand concrete analyst. ? Change your dressing as told by [...] or a bad smell. Medicines ??? Take sqam-slm-rnnhtej and prescription medicines only as told by [...] 12/22/2016 Document Revised: 04/09/2018 Document Reviewed: 12/22/2016 [employer]izz[employer] Interactive Patient Education ?? 2019 [employer]. phenazopyridine (fen AY matthew PIR i [...] or ?? a genetic enzyme deficiency called dgxohal-5-kllhdtzfk dehydrogenase (G6PD) deficiency. FDA category B. Phenazopyridine [...] may report side effects to FDA at 6-585-CHO-6421. What other drugs will affect phenazopyridine? Other drugs may interact with phenazopyridine, including prescription and qkyk-lzs-cmziyzj medicines, vitamins, and herbal products. Tell each [...] to ensure that the information provided by [employer]. ('Multum') is accurate, up-to-date, and complete, but no guarantee is made to that effect. Drug information contained herein may be time sensitive. Caipiaobaoum information has been compiled for use by healthcare practitioners and consumers in the [place] and therefore Caipiaoba[employer]m does not warrant that uses outside of the [place] are appropriate, unless specifically indicated otherwise. Clo[employer]'s drug information does not endorse drugs, diagnose patients or recommend therapy. Cloopen's drug information is an informational resource designed [...] effective or appropriate for any given patient. [facility] does not assume any responsibility for any aspect of healthcare administered with the aid of information [facility] provides. The information contained herein is not intended to cover all possible uses, directions, precautions, warnings, drug interactions, allergic reactions, or adverse effects. If you have questions about the drugs you are taking, check with your doctor, nurse or pharmacist. Copyright 7687-7183 [facility]. Version: 3.05. Revision Date: 01/06/2014.nitrofurantoin (BELKIS troe [...] electrolyte imbalance or vitamin B deficiency; ?? errlpah-9-kwpckweqx dehydrogenase (G6PD) deficiency; or ?? any type [...] may report side effects to FDA at 2-961-RMI-5222. What other drugs will affect nitrofurantoin? Other drugs may interact with nitrofurantoin, including prescription and fdqa-gqp-joroqjb medicines, vitamins, and herbal products. Tell each [...] to ensure that the information provided by [employer]. ('Multum') is accurate, up-to-date, and complete, but no guarantee is made to that effect. Drug information contained herein may be time sensitive. Cloopen information has been compiled for use by healthcare practitioners and consumers in the [place] and therefore [employer] does not warrant that uses outside of the [place] are appropriate, unless specifically indicated otherwise. Imbera Electronicss drug information does not endorse drugs, diagnose patients or recommend therapy. Imbera Electronicss drug information is an informational resource designed [...] effective or appropriate for any given patient. [employer] does not assume any responsibility for any aspect of healthcare administered with the aid of information [employer] provides. The information contained herein is not intended to cover all possible uses, directions, precautions, warnings, drug interactions, allergic reactions, or adverse effects. If you have questions about the drugs you are taking, check with your doctor, nurse or pharmacist. Copyright 3171-7206 [employer]. Version: 8.01. Revision Date: 11/23/2013.acetaminophen and hydrocodone (a SEET a MIN oh fen and cassi AMBROCIO done) Hycet, Lorcet, [place], Verdrocet, Vicodin, Xodol, Zamicet What is the [...] may report side effects to FDA at 7-037-JSZ-6458. What other drugs will affect acetaminophen and [...] affect acetaminophen and hydrocodone, including prescription and khvh-jvk-ffvndno medicines, vitamins, and herbal products. Not all [...] to ensure that the information provided by [employer]. ('Multum') is accurate, up-to-date, and complete, but no guarantee is made to that effect. Drug information contained herein may be time sensitive. Cloopen information has been compiled for use by healthcare practitioners and consumers in the [place] and therefore [employer]open does not warrant that uses outside of the [place] are appropriate, unless specifically indicated otherwise. I[employer] Electronicss drug information does not endorse drugs, diagnose patients or recommend therapy. Imbera Electronicss drug information is an informational resource designed [...] effective or appropriate for any given patient. [employer] does not assume any responsibility for any aspect of healthcare administered with the aid of information [employer] provides. The information contained herein is not intended to cover all possible uses, directions, precautions, warnings, drug interactions, allergic reactions, or adverse effects. If you have questions about the drugs you are taking, check with your doctor, nurse or pharmacist. Copyright 2546-7884 [employer]. Version: 15.. Revision Date: 07/20/2018.docusate (oral/rectal) (DOK [...] may report side effects to FDA at 3-475-ISD-8695. What other drugs will affect docusate? Other drugs may interact with docusate, including prescription and lwoo-bqc-rdmqvfv medicines, vitamins, and herbal products. Tell each [...] to ensure that the information provided by [employer]. ('Multum') is accurate, up-to-date, and complete, but no guarantee is made to that effect. Drug information contained herein may be time sensitive. Cloopen information has been compiled for use by healthcare practitioners and consumers in the [place] and therefore Cloopen does not warrant that uses outside of the [place] are appropriate, unless specifically indicated otherwise. Cloopen's drug information does not endorse drugs, diagnose patients or recommend therapy. Imbera Electronicss drug information is an informational resource designed [...] effective or appropriate for any given patient. [employer] does not assume any responsibility for any aspect of healthcare administered with the aid of information [employer]open provides. The information contained herein is not intended to cover all possible uses, directions, precautions, warnings, drug interactions, allergic reactions, or adverse effects. If you have questions about the drugs you are taking, check with your doctor, nurse or pharmacist. Copyright 0814-6169 [employer]. Version: 3.03. Revision Date: 10/27/2013. Emergency Awareness [...] Assistance with quitting is available by contacting 2-230-NHHJNOW. This is a free resource providing counseling, [...] Be sure to sign up for the [facility] patient portal, which gives you 07/04 access to your medical information ??? including these discharge instructions ??? using your computer, smartphone, or tablet. Just go to [employer] to get started. Questions? Call . Test Results Laboratory or Other Results This Visit (last charted value for your 02/09/2019 visit) No Laboratory or Other Results This Visit Patient Name:MINO HSU I have received this information and was given the opportunity to ask questions. Patient/Professor Of Art Name: Patient/Professor Of Art Signature: Relationship to Patient: Clinician/Hospital Professor Of Art Signature: Date: documented in this encounter Plan of Treatment Not on file documented as of this encounter Visit Diagnoses Not on filedocumented in this encounter
--- OUTSIDE RECORDS SUMMARY | 2025-04-14 13:42 | XMS_ITS | Clinical Summary ---
Author Organization [employer] ([place], [place], [place], [place]) Address [address] [place] [address] Care Team Providers Care Content Architect Name Role Phone Unavailable Primary Care Provider [...]
--- OUTSIDE RECORDS SUMMARY | 2025-04-14 13:42 | XMS_ITS | Encounter Summary ---
Author Organization [employer] ([place], [place], [place], [place]) Address [address] [place] [address] Care Team Providers Care Concert Pianist Name Role Phone Unavailable Primary Care Provider Unavailabl e Encounter Details Date Type Department Care Team (Late st Contact Info) Description 02/09/2019 Transcribed Document [facility] [place] Family Medicine [facility] [place] [address] ProviderSoham MD [place] [address] Social History Tobacco Use Types [...] Soham ProviderMD - 02/09/2019 8:33 AM CDT [facility] Main OR PACU Summary Primary Physician: EZ ODOM MD-URO Finalized Date/Time: 02/09/19 10:42:36 Pt. Name: MINO HSU /Sex: 1945 Male Med Rec #: [id number] Physician: EZ ODOM MD-URO Financial #: [id number] Pt. Type: O Room/Bed: /4 Admit/Disch: 02/09/19 06:12:00 - Institution: [facility] Main OR PACU I Case Times Entry 1 In PACU I 02/09/19 09:28:00 Ready for PACU 02/09/19 10:32:00 Discharge Discharge from PACU 02/09/19 10:32:00 I Last Modified By: SONDRAVERÓNICA RN 02/09/19 10:42:24 [facility] Main OR PACU I Case Times Audit 02/09/19 10:42:24 Pharmaceutical Compounding Supervisor: [id number] Modifier: [id number] <+> 1 Ready for PACU Discharge <+> 1 Discharge from PACU I Finalized By: VERÓNICA AMARO RN Document Signatures Signed By: VERÓNICA AMARO RN 02/09/19 10:42 documented in this encounter Plan of Treatment Not on file documented as of this encounter Visit Diagnoses Not on filedocumented in this encounter
--- OUTSIDE RECORDS SUMMARY | 2025-04-14 13:42 | XMS_ITS | Encounter Summary ---
Author Organization [employer] ([place], [place], [place], [place]) Address [address] [place] [address] Care Team Providers Care Respite Worker Name Role Phone Unavailable Primary Care Provider Unavailabl e Encounter Details Date Type Department Care Team (Late st Contact Info) Description 02/09/2019 Transcribed Document [facility] [place] Family Medicine [address] [place] [address] ProviderSoham MD [address] [place] [address] Social History Tobacco Use Types [...] and water are not available, use hand type casting machine operator. ? Change your dressing as told [...] or a bad smell. Medicines ??? Take gjwg-vyr-ucyhfnk and prescription medicines only as told by [...] 12/22/2016 Document Revised: 04/09/2018 Document Reviewed: 12/22/2016 ElseSmart Mocha Interactive Patient Education ? 2019 [employer] Inc. Urology Indwelling Urinary Catheter Care, Adult [...] on each side. Do this in a xraxe-cp-whnj direction. ? If you are male: ? [...] and water are not available, use hand type casting machine operator. ??? Always make sure there are [...] 09/01/2006 Document Revised: 04/17/2018 Document Reviewed: 04/17/2018 [employer] Interactive Patient Education ? 2019 [employer]. Prostate Laser Surgery, Care After This [...] clear or pale yellow. Medicines ??? Take twcr-rgu-xjhmyym and prescription medicines, including stool softeners, only [...] 09/01/2006 Document Revised: 04/18/2017 Document Reviewed: 04/18/2017 [employer]Smart Mocha Interactive Patient Education ? 2019 [employer]. documented in this encounter Plan of Treatment Not on file documented as of this encounter Visit Diagnoses Not on filedocumented in this encounter
--- OUTSIDE RECORDS SUMMARY | 2025-04-14 13:42 | XMS_ITS | Encounter Summary ---
Author Organization [place] [address] Care Team Providers Care Vest Finisher Name Role Phone Unavailable Primary Care Provider Unavailabl e Encounter Details Date Type Department Care Team (Late st Contact Info) Description 08/08/2021 Orders Only [facility] [address] [facility] [address] [place] [address] Edis Garza MD [address] [place], [place] [id number] Social History Tobacco Use Types Packs/Day Years [...] Garza MD CARDIAC CATH ORDERABLES Final Result [facility] [address] [place] [id number] documented in this encounter Visit Diagnoses Not on filedocumented in this encounter Additional Health Concerns Assessment Noted Time A fall risk assessment has been complete d for the patient 08/03/2021 2:11 PM EST documented as of this encounter
--- OUTSIDE RECORDS SUMMARY | 2025-04-14 13:42 | XMS_ITS | Clinical Summary ---
Author Organization [facility] Address [address] [place] [address] Care Team Providers Care Fuel Buyer Name Role Phone Kojo Vu Primary Care Provider [phone] Skinny Massey MD Unavailable [phone] Allergies Active Allergy Reactions Criticality Noted [...] (04/19/2019): Added automatically from request for surgery [id number] Social History Tobacco Use Types Packs/Day Years [...] 2025 Insurance MEDICARE ANTHEM MEDICARE PART A [facility] [address] [place] [id number] ANTHEM MEDICARE ANTHEM Care Teams Fuel Buyer Relationship Specialty Start Date End Date Kojo Vu [address] [place] [address] PCP - General 09/18/18 Skinny Massey MD [address] [place] [address] Urology 09/22/22
[2025-04-14 14:50] LABS: Hematocrit 42.8 % (42.0-52.0); Hemoglobin 14.3 g/dL (14.1-18.0); Mean Corpuscular HGB Conc 33.4 g/dL (31.8-35.4); Mean Corpuscular Hemoglobin 32.4 pg (27.0-31.2); Mean Corpuscular Volume 96.8 fl (80-94); Platelet Count 247 K/mm3 (142-424); Red Blood Count 4.42 M/mm3 (4.60-6.20); White Blood Count 5.9 K/mm3 (4.8-10.8)
[2025-04-14 15:13] LABS: RBC Morphology Normal; Total Cells Counted 100
[2025-04-14 15:18] LABS: Chloride 100 mmol/L (98-107)
[2025-04-14 15:19] LABS: Potassium 4.0 mmoL/L (3.5-5.1); Sodium 136 mmol/L (136-145)
[2025-04-14 15:22] LABS: Anion Gap 10.0 mEq/L (5-15); Blood Urea Nitrogen 15 mg/dl (9-20); Calcium 9.4 mg/dl (8.4-10.2); Carbon Dioxide 30 mmol/L (22.0-30.0); Creatinine,Serum 0.90 mg/dl (0.66-1.25); Estimated Glomerular Filt Rate 82 ml/min (>60); GFR (African American) 99 ML/MIN (>60); Glucose 118 mg/dl (74-100)
== END 2025-04-14 23:59 | disposition home or self-care (01) ==
LOC: LAB 13:39
PROVIDERS: PCP Family Medicine; Visit Provider Internal Medicine
DX: I20.0 Unstable angina (principal); R07.89 Other chest pain; R20.0 Anesthesia of skin
CPT/HCPCS: 36415; 80048; 85007; 85014; 85018; 85048; 85049

== ENCOUNTER 2025-04-22 14:13 | Emergency (ER) | payer MEDICARE, BC, SELFPAY ==
--- OUTSIDE RECORDS SUMMARY | 2025-03-11 14:00 | XMS_ITS | Encounter Summary ---
Author Organization [facility] Address [address] [place] [address] Care Team Providers Care Mining Captain Name Role Phone Cheko Heredia MD Primary Care Provider + Reason for Visit * Reason Comments Follow-up Diabetes Hyperlipidemia Encounter Details Date Type Department Care Team (Late st Contact Info) Description 03/11/2025 2:00 PM EDT Office Visit [facility] [address] [place] [address] Cheko Heredia MD [address] [place] [address] Type 2 diabetes mellitus with hyperglycemia, without long-term current use of insulin (Primary Dx); Chronic pain syndrome; Chronic pain syndrome; Spondylosis of lumbar region without myelopathy or radiculopathy; Anxiety about health Social History Tobacco Use Types Packs/Day Years Used Date Smoking Tobacco: Every Day Cigarettes 1 50 Smokeless Tobacco: Never Tobacco Cessation:Ready to Q uit: No; Counseling Given: Not Answered Comments:1-1.5 ppd for 50 + years Alcohol Use Standard Drinks/Week Comments No 0 (1 standard drink = 0.6 oz pur e alcohol) Beer in the Past PHQ-2 Answer Date Recorded Retired PHQ-9: Brief Depression Severity Measure Score 0 08/26/2023 PHQ-2 Answer Date Recorded Patient Health Questionnaire-2 Score 0 12/10/2024 Sex and Gender Information Value Date Recorded Sex Assigned at Not on file Legal Sex Male 12:58 PM EDT Gender Identity Not on file Sexual Orientation Not on file Occupation Industry Job Start Date Job End Date [employer] Not on file Not on file Not on file documented as of this encounter Last Filed Vital Signs Vital Sign Reading Time Taken Comments Blood Pressure 108/62 03/11/2025 1:51 PM EDT Pulse 73 03/11/2025 1:51 PM EDT Temperature 36.5 C (97.7 F) 03/11/2025 1:51 PM EDT Respiratory Rate 20 03/11/2025 1:51 PM EDT Oxygen Saturation 97% 03/11/2025 1:51 PM EDT Inhaled Oxygen Concentration - - Weight 91.4 kg (201 lb 6.4 oz) 03/11/2025 1:51 P M EDT Height 180.3 cm (5' 11 ) 03/11/2025 1:51 PM EDT Body Mass Index 28.09 03/11/2025 1:51 PM EDT documented in this encounter Progress Notes * Cheko Heredia MD - 03/11/2025 2:00 PM EDT Chief Complaint Patient presents with Follow-up Diabetes Hyperlipidemia Subjective Mino Hsu is a 79 y.o. who presents for diabetes and chronic back pain from degenerative spine arthritis. He reports stable health. Since patient's last visit with me he followed up with [facility] cardiology without changes in medications. He is seeing electrophysiology in March and is considering undergoing repeat ablation. He has seen [facility] gastroenterology. Upper and lower endoscopies have not identified a source of bleeding that would explain his anemia. He is supposed to be taking iron supplements and discussion has been had about potential Watchman device should his anemia worsen despite iron supplementation The following portions of the patient's history were reviewed and updated as appropriate: allergies, current medications, past family history, past medical history, past social history, past surgicalhistory, and problem list. Review of Systems Objective Vital Signs: BP 108/62 Pulse 73 Temp 97.7 ??F (36.5 ??C) Resp 20 Ht 180.3 cm (71 ) Wt 91.4 kg (201 lb 6.4 oz) SpO2 97% BMI 28.09 kg/m?? BMI is >= 25 and <30. (Overweight) The following options were offered after discussion;: nutrition counseling/recommendations Physical Exam Vitals reviewed. Constitutional: Appearance: Normal appearance. HENT: Head: Normocephalic and atraumatic. Right Ear: Tympanic membrane and ear canal normal. Left Ear: Tympanic membrane and ear canal normal. Nose: Nose normal. Mouth/Throat: Mouth: Mucous membranes are moist. Pharynx: Oropharynx is clear. Eyes: Conjunctiva/sclera: Conjunctivae normal. Cardiovascular: Rate and Rhythm: Normal rate and regular rhythm. Heart sounds: Normal heart sounds. No murmur heard. Pulmonary: Effort: Pulmonary effort is normal. No respiratory distress. Breath sounds: Normal breath sounds. Musculoskeletal: Cervical back: Normal range of motion and neck supple. No tenderness. Lymphadenopathy: Cervical: No cervical adenopathy. Skin: General: Skin is warm and dry. Neurological: Mental Status: He is alert. Psychiatric: Mood and Affect: Mood normal. Result Review Assessment and Plan Diagnoses and all orders for this visit: 1. Type 2 diabetes mellitus with hyperglycemia, without long-term current use of insulin (Primary) Comments: Stable. Continue low-dose Jardiance. Repeat A1c at follow-up visit in 3 months 2. Chronic pain syndrome Comments: Pain is chronic and not anticipated to change. Continue oxycodone. Eliel compliant Orders: - oxyCODONE-acetaminophen (PERCOCET) 5-325 MG per tablet; Take 1 tablet by mouth Every 8 (Eight) Hours As Needed for Severe Pain. Dispense: 90 tablet; Refill: 0 - diazePAM (VALIUM) 5 MG tablet; Take 1 tablet by mouth Every 12 (Twelve) Hours As Needed for Anxiety. Dispense: 60 tablet; Refill: 2 3. Chronic pain syndrome Comments: Pain is chronic and not anticipated to change. Continue oxycodone. Eliel compliant. Orders: - oxyCODONE-acetaminophen (PERCOCET) 5-325 MG per tablet; Take 1 tablet by mouth Every 8 (Eight) Hours As Needed for Severe Pain. Dispense: 90 tablet; Refill: 0 - diazePAM (VALIUM) 5 MG tablet; Take 1 tablet by mouth Every 12 (Twelve) Hours As Needed for Anxiety. Dispense: 60 tablet; Refill: 2 4. Spondylosis of lumbar region without myelopathy or radiculopathy Comments: Condition is stable. Continue low-dose Percocet 3 times daily as needed. Continue interventional pain management Orders: - oxyCODONE-acetaminophen (PERCOCET) 5-325 MG per tablet; Take 1 tablet by mouth Every 8 (Eight) Hours As Needed for Severe Pain. Dispense: 90 tablet; Refill: 0 5. Anxiety about health Comments: Stable. Refill Diazepam. Eliel compliant Orders: - diazePAM (VALIUM) 5 MG tablet; Take 1 tablet by mouth Every 12 (Twelve) Hours As Needed for Anxiety. Dispense: 60 tablet; Refill: 2 Follow Up Return in about 3 months (around 06/11/2025) for Next scheduled follow up Diabetes and Chronic Pain. Patient was given instructions and counseling regarding his condition or for health maintenance advice. Please see specific information pulled into the AVS if appropriate. documented in this encounter Plan of Treatment Upcoming Encounters Date Type Department Care Team (Late st Contact Info) Description 06/13/2025 3:00 PM EDT Office Visit [facility] [address] [place] [address] Cheko Heredia MD [address] [facility] [place] [address] 12/12/2025 2:15 PM EDT Office Visit [facility] [address] [place] [address] Cheko Heredia MD [address] [facility] [place] [address] Scheduled Procedures Name Priority Associated Diagnoses Date/Ti me ABLATION A-FIB Atrial fibrillation with RVR Cardiomyopathy, dilated, nonischemic Essential hypertension documented as of this encounter Visit Diagnoses Diagnosis Type 2 diabetes mellitus with hyperglycemia, without long-term current use of insulin- Primary Chronic pain syndrome Spondylosis of lumbar region without myelopathy or radiculopathy Anxiety about health documented in this encounter Care Teams Mining Captain Relationship Specialty Start Date End Date Cheko Heredia MD [address] [place] [address] PCP - General Family Medicine 01/10/22 documented as of this encounter
--- OUTSIDE RECORDS SUMMARY | 2025-03-30 13:30 | XMS_ITS | Encounter Summary ---
Author Organization [place] [address] Care Team Providers Care Gold Leaf Laborer Name Role Phone Unavailable Primary Care Provider Unavailabl e Reason for Visit * Reason Comments Follow-up 6 month f/u hx AF.me ds per pt report Encounter Details Date Type Department Care Team (Late st Contact Info) Description 03/30/2025 1:30 PM EDT Office Visit [facility] [address] [facility] [address] [place] [address] Edis Garza MD [address] [place] [address] Atrial fibrillation with rapid ventricular response (HCC) [...] nerves are grossly intact. Speech is normal. [id number] Stroke Risk Points: 6 Values used to [...] Artery Disease Managed by [facility] 4. Tobacco h/o F/u 6 months documented [...] Please contact your primary care physician or kiln door repairer for management of your lipids. documented in this encounter Plan of Treatment Upcoming Encounters Date Type Department Care Team (Late st Contact Info) Description 05/10/2025 10:45 AM EDT Office Visit [facility] [address] [address] Chris Manzanares MD [address] [place] [address] documented as of this encounter Procedures Procedure Name Priority Date/Time Associated Diagnosis Comments POCT EKG Routine 03/30/2025 1:46 PM EDT Atrial fibrillation with rapid ventricular response (HCC) Cardiomyopathy, dilated, nonischemic (HCC) documented in this encounter Results * POCT EKG (03/30/2025 1:46 PM EDT) 03/30/2025 1:46 PM EDT Impressions [facility] OFFICE - 03/30/2025 1:46 PM EDT Sinus rhythm Edis Garza MD POINT OF CARE CARDIOLOGY [...]
[2025-04-22] VITALS (9 sets, daily range): BP systolic 108–148; BP diastolic 57–98; PULSE 50–113; RESP 10–23; TEMP 36.8–37.1; O2SAT 93–98; BMI 27.8
--- NOTE | 2025-04-22 14:28 | ECG_ITS ---
APPROVED REPORT Exam: Resting ECG HR:105 bpm ECG Measurements Heart Rate 105 AXES QRSd 113 QRS 87 QT 347 T 60 QTc 408 Conclusion ATRIAL FLUTTER/TACHYCARDIA WITH RAPID VENTRICULAR RESPONSE POSSIBLE INFERIOR MYOCARDIAL INFARCTION , PROBABLY OLD [30 ms Q WAVE IN II/aVF] ABNORMAL RHYTHM ECG UNCONFIRMED REPORT A-fib with RVR with a heart rate of [address] elevation or depression. Electronically signed by : KATHY MCNEILL, 04/23/2025 07:46:15
--- OUTSIDE RECORDS SUMMARY | 2025-04-22 14:32 | XMS_ITS | Encounter Summary ---
Author Organization [facility] Address [address] [place] [address] Care Team Providers Care Oracle Wms Consultant Name Role Phone Horace Kojo Primary Care Provider [phone] Skinny Massey MD Unavailable [phone] Encounter Details Date Type Department Care Team (Latest Contact Info) Description 04/19/2019 Preop Surgical Orders [facility] Physicians - Urology, [address] [phone] Skinny Massey MD [address] [place] [address] Increased frequency of urination (Primary Dx) Social [...] frequency documented in this encounter Care Teams Oracle Wms Consultant Relationship Specialty Start Date End Date HoraceKojo [address] [place] [phone] PCP - General 09/18/18 Skinny Massey MD [address] [place] [address] Urology 09/22/22 documented as of this encounter
--- OUTSIDE RECORDS SUMMARY | 2025-04-22 14:32 | XMS_ITS | Encounter Summary ---
Author Organization [facility] Address [address] [place] [address] Care Team Providers Care Financial Coach Name Role Phone Cheko Heredia MD Primary Care Provider + Reason for Visit * Reason Comments Med Refill Encounter Details Date Type Department Care Team (Late Contact Info) Description 04/30/2022 Refill [facility] [address] [facility] [address] Cheko Heredia MD [address] [facility] [address] Chronic pain syndrome; Anxiety about [...] Industry Job Start Date Job End Date [employer] Not on file Not on file Not on file documented as of this encounter Plan of Treatment Upcoming Encounters Date Type Department Care Team (Late Contact Info) Description 06/13/2025 3:00 PM EDT Office Visit [facility] MEDICINE [address] [facility] [address] Cheko Heredia MD [address] [place] [address] 12/12/2025 2:15 PM EDT Office Visit [facility] MEDICINE [address] [place], [place] [phone] Cheko Heredia MD [address] [place] [address] Scheduled Procedures Name Priority Associated Diagnoses Date/Ti me ABLATION A-FIB Atrial fibrillation with RVR Cardiomyopathy, dilated, nonischemic Essential hypertension documented as of this encounter Visit Diagnoses Diagnosis Chronic pain syndrome Anxiety about health documented in this encounter Additional Health Concerns Assessment Noted Time PHQ-2 Depression Total Score: 5 01/11/20 1:44 PM EDT documented as of this encounter Care Teams Financial Coach Relationship Specialty Start Date End Date Cheko Heredia MD [address] [place] [address] PCP - General Family Medicine 01/10/22 documented as of this encounter
--- OUTSIDE RECORDS SUMMARY | 2025-04-22 14:32 | XMS_ITS | Encounter Summary ---
Author [facility] Address [address] [place] [address] Care Team Providers Care Sales Service Assistant Name Role Phone Cheko Heredia MD Primary Care Provider + Reason for Visit * Reason Comments Med Refill Encounter Details Date Type Department Care Team (Late st Contact Info) Description 02/25/2025 Refill [facility] MEDICINE [address] [place] [address] Cheko Heredia MD [address] [place] [address] Chronic midline low back pain [...] Industry Job Start Date Job End Date [employer] Not on file Not on file Not on file documented as of this encounter Plan of Treatment Upcoming Encounters Date Type Department Care Team (Late st Contact Info) Description 06/13/2025 3:00 PM EDT Office Visit [facility] [address] [place] [address] Cheko Heredia MD [address] [place] [address] 12/12/2025 2:15 PM EDT Office Visit [facility] [address] [place] [address] Cheko Heredia MD [address] [place] [address] Scheduled Procedures Name Priority Associated Diagnoses Date/Ti me ABLATION A-FIB Atrial fibrillation with RVR Cardiomyopathy, dilated, nonischemic Essential hypertension documented as of this encounter Visit Diagnoses Diagnosis Chronic midline low back pain without sciatica documented in this encounter Care Teams Sales Service Assistant Relationship Specialty Start Date End Date Cheko Heredia MD [address] [place] [address] PCP - General Family Medicine 01/10/22 documented as of this encounter
--- OUTSIDE RECORDS SUMMARY | 2025-04-22 14:32 | XMS_ITS | Clinical Summary ---
Author Organization [facility] Address [address] [place] [phone] Phone Care Team Providers Care Duplicate Maker Name Role Phone Lio Corcoran MD Primary Care Physician [phone]- [phone] Conditions or Problems Problem Name Problem Code Onset Date Status Entry Date Provider Comment Standard Description Annotate Complicated grief 864220662 (SNOMED CT) 05/08 Active 05/08 Lio Corcoran MD Abnormal grief reaction Hx of cardiac arrhythmias 120100119 (SNOMED CT) 05/08 Active 05/08 Lio Corcoran MD H/O: heart disorder Insomnia 656276193 (SNOMED CT) 05/08 Active 05/08 Lio Corcoran MD Insomnia Back pain 252724594 (SNOMED CT) 05/08 Active 05/08 Lio Corcoran MD Backache Fatigue 32799831 (SNOMED CT) 05/08 Active 05/08 Lio Corcoran MD Fatigue Depression / anxiety 918878305 (SNOMED CT) 05/08 Active 05/08 Lio Corcoran MD Mixed anxiety and depressive disorder Anticoagulati on 888401238 (SNOMED CT) 05/08 Active 05/08 Lio Corcoran MD Anticoagulant therapy Stented coronary artery 033943832 (SNOMED CT) 05/08 Active 05/08 Lio Corcoran MD Stented coronary artery Medications Medication Instructions Start Date Stop Date Generic Name NDC Provider MIRTAZAPINE 15 MG TABS Take 1 pill by mouh at bedtime MIRTAZAPINE [id number] Lio Corcoran MD MIRTAZAPINE 7.5 MG TABS take 1 tablet nightly by mouth MIRTAZAPINE 90671415764 Lio Corcoran MD CYMBALTA 30 MG CPEP TAKE 1 CAPSULE BY MOUTH EVERY NIGHT for 30 days and then stop it (we are weaning this medicine to start new medicine end of Oct) DULOXETINE HCL [id number] Lio Corcoran MD CYMBALTA 30 MG CPEP TAKE 1 CAPSULE BY MOUTH EVERY NIGHT for 30 days and then stop it (we are weaning this medicine to start new medicine end of Oct) DULOXETINE HCL 18869432861 Lio Corcoran MD CYMBALTA 30 MG CPEP TAKE 1 CAPSULE BY MOUTH EVERY NIGHT (weaning this medicine for 30 days to start new medicine) DULOXETINE HCL [id number] Lio Corcoran MD DULOXETINE HCL 60 MG CPEP TAKE 1 CAPSULE BY MOUTH EVERY NIGHT DULOXETINE HCL 89494871396 Lio Corcoran MD MIRTAZAPINE 7.5 MG TABS take 1 tablet nightly by mouth MIRTAZAPINE [id number] Lio Corcoran MD CENTRUM SILVER ADULT 50+ TABS TAKE 1 TABLET BY MOUTH EACH DAY MULTIPLE VITAMINS-ICE CREAM SHOP ASSOCIATE ALS 68740753419 Lio Corcoran MD FISH OIL 1000 MG CAPS TAKE 1 CAPSULE BY MOUTH 2 TIMES A DAY OMEGA-3 FATTY ACIDS 96012186040 Lio Corcoran MD PREVAGEN 10 MG CAPS APOAEQUORIN 31818595241 Lio Corcoran MD DIAZEPAM 5 MG TABS TAKE 1 TABLET BY MOUTH 3 TIMES A DAY NEEDED FOR ANXIETY DIAZEPAM 82721070945 Lio Corcoran MD OXYCODONE HCL 5 MG CAPS TAKE 1 BY MOUTH 3 TIMES A DAY OXYCODONE HCL 90097548365 Lio Corcoran MD SIMVASTATIN 20 MG TABS TAKE 1 TABLET BY MOUTH AT BEDTIME FOR CHOLESTEROL SIMVASTATIN 04097812979 Lio Corcoran MD XARELTO 20 MG TABS TAKE 1 TABLET BY MOUTH ONCE A DAY RIVAROXABAN 24047540892 Lio Corcoran MD OMEPRAZOLE 20 MG CPDR TAKE 1 CAPSULE BY MOUTH ONCE A DAY OMEPRAZOLE 46975355034 Lio Corcoran MD METOPROLOL SUCCINATE ER 25 MG [id number] TAKE 1 TABLET BY MOUTH ONCE A DAY METOPROLOL SUCCINATE 34272257316 Lio Corcoran MD TAMSULOSIN HCL 0.4 MG CAPS TAMSULOSIN HCL 95592677439 Lio Corcoran MD LISINOPRIL 10 MG TABS TAKE 1 TABLET BY MOUTH 1 TIME A DAY LISINOPRIL 90566018248 Lio Corcoran MD AMIODARONE HCL 200 MG TABS TAKE 1 TABLET BY MOUTH TWICE A DAY AMIODARONE HCL 45625924782 Lio Corcoran MD DULOXETINE HCL 60 MG CPEP TAKE 1 CAPSULE BY MOUTH EVERY NIGHT DULOXETINE HCL 65824538258 Lio Corcoran MD Medications Administered No information [...] in Blood ABS NEUTROPH 2947 CELLS/UL 10*3/uL 7575-7811 N Neutrophils [#/volume] in Blood MPV 9.5 [...] Telehealth G202 Medicare Telehealth G202 Medicare Telehealth CPT-19824() Psychotherapy 45m -No [facility]() 05/10/05 G2025 Medicare Telehealth [id number] Medication Reconciliation CPT-3077F Most recent systolic blood pressure >=140 mm Hg CPT-3078F Most recent diastoli c blood pressure <80 mm Hg CPT-17008() Psychotherapy 45m -No [facility]() 20 03/09/10 CPT-31170() Psychotherapy 45m -No [facility]() 20 04/08/11 CPT-82517() Psychotherapy 60m Crises- No [facility]() 202 CPT-06052() Psychotherapy 45m -No [facility]() 20 04/07/19 CPT-1159F Medication list docu mented in medical record [facility] 6399 T1 CBC with diff [facility] 60883 T1 CMP [facility] 84151 T2 Vitamin D 25 Hydroxy 2019 [facility] 46590 T1 TSH reflex to free T4 202 [facility] 927 T1 B12 [facility] 60430 T1 Lipid Panel [facility] 496 T1 HGBA1c [...]
--- OUTSIDE RECORDS SUMMARY | 2025-04-22 14:32 | XMS_ITS | Clinical Summary ---
Author Organization [facility] Address [address] [place] [address] Care Team Providers Care Radio Talk Show Host Name Role Phone Dariusz Vu MD Primary Care Provider Family History Medical History Relation Name Comments [...] or (1 - 1-dose 75+ series) 2021 [id number] Vaccine ( season) 2024 08/15/2022, 07/20/2021, 11/25/2020, [...] complete this topic Insurance MEDICARE Care Teams Radio Talk Show Host Relationship Specialty Start Date End Date Dariusz Vu MD [address] [place] [address] [address] [place] [phone] PCP - General 01/26/21
--- OUTSIDE RECORDS SUMMARY | 2025-04-22 14:32 | XMS_ITS | Encounter Summary ---
[facility] Organization [facility] Address [address] [place] [id number] Care Team Providers Care Junior Loan Processor Name Role Phone Cheko Heredia MD Primary Care Provider + Encounter Details Date Type Department Care Team (Late st Contact Info) Description 12/12/2024 Results Follow-Up [facility] MED[facility]INE [address] [facility] [place] [address] Cheko Heredia MD [address] [place] [address] Social History Tobacco Use Types [...] Industry Job Start Date Job End Date [employer] Not on file Not on file Not on file documented as of this encounter Plan of Treatment Upcoming Encounters Date Type Department Care Team (Late st Contact Info) Description 06/13/2025 3:00 PM EDT Office Visit [facility] MEDICINE [address] [place] [address] Cheko Heredia MD [address] [place] [address] 12/12/2025 2:15 PM EDT Office Visit [facility] [address] [place] [address] Cheko Heredia MD [address] [place] [address] Scheduled Procedures Name Priority Associated Diagnoses Date/Ti me ABLATION A-FIB Atrial fibrillation with RVR Cardiomyopathy, dilated, nonischemic Essential hypertension documented as of this encounter Visit Diagnoses Not on filedocumented in this encounter Care Teams Junior Loan Processor Relationship Specialty Start Date End Date Cheko Heredia MD [address] [place] [address] PCP - General Family Medicine 01/10/22 documented as of this encounter
--- OUTSIDE RECORDS SUMMARY | 2025-04-22 14:32 | XMS_ITS | Encounter Summary ---
[facility] Address [address] [place] [address] Care Team Providers Care Upsetter Setter Up Name Role Phone Cheko Heredia MD Primary Care Provider + Reason for Visit * Reason Comments Med Refill Encounter Details Date Type Department Care Team (Late Contact Info) Description 03/10/2025 Refill [facility] MED[facility]INE [address] [place] [address] Cheko Heredia MD [address] [place] [address] Type 2 diabetes mellitus with [...] Industry Job Start Date Job End Date [employer] Not on file Not on file Not on file documented as of this encounter Plan of Treatment Upcoming Encounters Date Type Department Care Team (Late Contact Info) Description 06/13/2025 3:00 PM EDT Office Visit [facility] [address] [place], [place] [address] Cheko Heredia MD [address] [place] [address] 12/12/2025 2:15 PM EDT Office Visit [facility] MED[facility]INE [address] [place] [address] Cheko Heredia MD [address] [place] [address] Scheduled Procedures Name Priority Associated Diagnoses Date/Ti me ABLATION A-FIB Atrial fibrillation with RVR Cardiomyopathy, dilated, nonischemic Essential hypertension documented as of this encounter Visit Diagnoses Diagnosis Type 2 diabetes mellitus with hyperglycemia, without long-term current use of insulin documented in this encounter Care Teams Upsetter Setter Up Relationship Specialty Start Date End Date Cheko Heredia MD [address] [place] [address] PCP - General Family Medicine 01/10/22 documented as of this encounter
--- OUTSIDE RECORDS SUMMARY | 2025-04-22 14:32 | XMS_ITS | Encounter Summary ---
[facility] Address [address] [place] [phone] Care Team Providers Care Mapping Pilot Name Role Phone Cheko Heredia MD Primary Care Provider + Encounter Details Date Type Department Care Team (Late st Contact Info) Description 04/15/2017 External CPT II FULFILLMENT ASSOCIATE - [employer] Social History Tobacco Use [...] EDT Office Visit [facility] MED[facility] [address] [place] [address] Cheko Heredia MD [address] [place] [address] 12/12/2025 2:15 PM EDT Office Visit [facility] [address] [place] [address] Cheko Heredia MD [address] [place] [address] Scheduled Procedures Name Priority Associated Diagnoses Date/Ti me ABLATION A-FIB Atrial fibrillation with RVR Cardiomyopathy, dilated, nonischemic Essential hypertension documented as of this encounter Visit Diagnoses Not on filedocumented in this encounter Care Teams Mapping Pilot Relationship Specialty Start Date End Date Cheko Heredia MD [address] [facility] [place] [address] PCP - General Family Medicine 01/10/22 documented as of this encounter
--- OUTSIDE RECORDS SUMMARY | 2025-04-22 14:32 | XMS_ITS | Encounter Summary ---
[facility] Organization [facility] Address [address] [place] [phone] Care Team Providers Care Car Repossessor Name Role Phone Cheko Heredia MD Primary [...] Industry Job Start Date Job End Date [employer] Not on file Not on file Not on file documented as of this encounter Plan of Treatment Upcoming Encounters Date Type Department Care Team (Late st Contact Info) Description 06/13/2025 3:00 PM EDT Office Visit [facility] MEDICINE [address] [place] [address] Cheko Heredia MD [address] [place] [address] 12/12/2025 2:15 PM EDT Office Visit [facility] MEDICINE [address] [place] [address] Cheko Heredia MD [address] [place] [address] Scheduled Procedures Name Priority Associated Diagnoses Date/Ti me ABLATION A-FIB Atrial fibrillation with RVR Cardiomyopathy, dilated, nonischemic Essential hypertension documented as of this encounter Visit Diagnoses Not on filedocumented in this encounter Care Teams Car Repossessor Relationship Specialty Start Date End Date Cheko Heredia MD [address] [place] [address] PCP - General Family Medicine 01/10/22 documented as of this encounter
--- OUTSIDE RECORDS SUMMARY | 2025-04-22 14:33 | XMS_ITS | Clinical Summary ---
Author Organization [facility] Address [address] [place] [address] Phone Care Team Providers Care Gas Pumping Station Supervisor Name Role Phone Unavailable Primary Care [...] (08/06/2021): Added automatically from request for surgery [id number] Paroxysmal atrial fibrillation 07/27/2021 Assessment & Plan [...] Encounters Date Type Department Care Team Description 04/19/2025 Telephone Structural Hrt/Valve [address] [place] [address] Renetta Conklin, ERIK Other 04/04/2025 Telephone Structural Hrt/Valve [address] [place] [address] Renetta Conklin, RN Other 03/30/2025 1:30 PM EDT Office Visit [facility] [address] [place] [address] Edis Garza MD Atrial fibrillation with rapid [...] Depression Anxiety Hypertension Systolic HF (heart failure) (HCC) 11/01/2016 Echocardiogram 08/22/2016: EF 30%, moderate MR, mild pulmonary hypertension Cardiomyopathy, dilated, non ischemic (HCC) 10/17/2016 Pleural effusion 09/01/2016 GERD (gastroesophageal reflux disease) Carotid artery stenosis 01/30/2016 1. Carot id ultrasound, 06/06/2015, suggests total occlusion involving the right internal carotid artery with 50% to 69% occlusion to the left internal carotid artery. Coronary artery disease invo lving [place] coronary artery of [place] heart without angina pectoris 01/30/2016 Hyperlipemia Arthritis [...] 09/28/2024 1:33 PM EST Plan of Treatment Upcoming Encounters Date Type Department Care Team (Late st Contact Info) Description 05/10/2025 10:45 AM EDT Office Visit [facility] [address] [address] Chris Manzanares MD [address] [place] [address] Health Maintenance Due Date Last Done Comments Wellness Exam Medicare 1948 Diabetic Eye Exam 1963 Hepatitis C Screening 1963 Kidney Health: uACR 1964 Zoster (1 of 2) 1996 DTaP/TDaP/Td [...] Additional history exists Influenza Vaccine (#1) 2025 3, 07/15/2022, 07/30/2016 Hepatitis B Vaccine Aged Out [...] MD POINT OF CARE CARDIOLOGY Final Result Performing Organization Address City/[facility] Co de Phone Number [facility] * LIPID SCREEN (08/14/2021 6:08 AM EST) Cholesterol 156 <200 mg/dL 08/14/2021 8:44 AM EST [facility] Comment: < 200 Desirable 200 - 239 Borderline High >= 240 High Triglyceride 148 <150 mg/dL 08/14/2021 8:44 AM EST [facility] Comment: < 150 Normal 150 - 199 Borderline High 200 - 499 High >= 500 Very High HDL 41 >=40 mg/dL 08/14/2021 8:44 AM EST [facility] Comment: > 60 Optimal 40 - 60 Acceptable < 40 Low LDL Calculated 89 <100 mg/dL 08/14/2021 8:44 AM EST [employer] [facility] Comment: < 100 Optimal 100 - 129 Near or above optimal 130 - 159 Borderline High 160 - 189 High >= 190 Very High Non-HDL-C Calculated 115 <=129 mg/dL 08/14/2021 8:44 AM EST [facility] Comment: <130 Desirable 130-159 Above Desirable 160-189 Borderline High 190-219 High >= 220 Very High Fasting Specimen? 021 8:44 AM EST [facility] Blood VENOUS BLOOD / Unknown Venipuncture / Unknown 08/14/2021 6:08 AM EST 08/14/2021 6:19 AM EST us Eliezer Andujar MD CHEMISTRY ORDERABLES Final Resul t Performing Organization Address City/[facility]/ZIP Co de Phone Number [facility] [address] [facility] , [place] [address] * (ABNORMAL) BASIC METABOLIC PANEL (08/14/2021 6:08 AM EST) Sodium 141 136 - 145 mmol/L 08/14/2021 6:55 AM EST [facility] Potassium 4.0 3.5 - 5.0 mmol/L 08/14/2021 6:55 AM EST [facility] Chloride 105 98 - 107 mmol/L 08/14/2021 6:55 AM EST [facility] Total CO2 28 22 - 29 mmol/L 08/14/2021 6:55 AM EST [facility] Anion Gap 8 7 - 16 mmol/L 08/14/2021 6:55 AM EST [facility] Calcium 9.3 8.8 - 10.4 mg/dL 08/14/2021 6:55 AM EST [facility] Glucose Lvl 123(H) 82 - 100 mg/dL 08/14/2021 6:55 AM EST [facility] BUN 23 8 - 23 mg/dL 08/14/2021 6:55 AM EST [facility] Creatinine 1.13 0.67 - 1.30 mg/dL 08/14/2021 6:55 AM EST [facility] eGFR (CKD-EPIcr 2020) 68 >=60 mL/min/1.7 3 m2 08/14/2021 6:55 AM EST [facility] Comment:Estimated GFR was ca lculated using the CKD-EPIcr (2020) equation refit without race. The equation is recommended by the National Kidney Foundation - [place] [employer] of Nephrology Task Force. Blood VENOUS BLOOD / Unknown Venipuncture / Unknown 08/14/2021 6:08 AM EST 08/14/2021 6:19 AM EST us Skip Glover MD (Ronny) CHEMISTRY ORDER ZORAIDA Final Result [facility] [address] [facility] , [place] [address] [facility] [address] [place] [id number] * (ABNORMAL) HEMOGLOBIN A1C (08/13/2021 6:31 AM EST) Hgb A1C 6.5(H) 4.2 - 5.6 % 08/13/2021 7:17 AM EST [facility] Est. Avg Glucose 140 mg/dL 08/13/2021 7:17 AM EST [facility] Blood VENOUS BLOOD / Unknown Venipuncture / Unknown 08/13/2021 6:31 AM EST 08/13/2021 6:43 AM EST Narrative [facility] - 08/13/2021 7:17 AM EST REFERENCE RANGE: Normal: 4.0-5.6% Pre-diabetes: 5.7-6.4% Provisional diagnosis of diabetes: >6.4% Hgb F>10% and anything which shortens red cell survival, such as hemolytic anemia, or unstable hemoglobin variants such as HbSS, HbSC, or HbCC, will lower the HbA1c value associated with a given level of glycemic control. Skip Jimenez) Belen SUTTON CHEMISTRY ORDER ZORAIDA Final Result [facility] [address] [facility] , [place] [address] from Last 3 Months or Most Recently Relevant to Health Maintenance Insurance MEDICARE SUPPLEMENT MEDICARE [place] PART [place] B [place]ICARE [place] B MEDIC[place] SU[place]MENT Advance Directives For more information, please contact: [phone] * Full Code (Latest Code Status on File) Date Activated Date Inactivated Comments 08/12/2021 8:49 PM 08/14/2021 8:54 PM
--- OUTSIDE RECORDS SUMMARY | 2025-04-22 14:33 | XMS_ITS | Clinical Summary ---
Author Organization [facility] Address [address] [place] [address] Care Team Providers Care Dinkey Press Operator Name Role Phone Cheko Heredia MD Primary Care Provider + Allergies Active Allergy Reactions Criticality Noted Date Comments Sulfa Antibiotics Nausea Only Medium 05/27/2019 Medications [place]-3 Fatty Acids (FISH OIL) 1000 MG capsule [...] Daily. 4 Active losartan (COZAAR) 25 MG tabletIndications: Hypertension Take 2 tablets by mouth Daily. Indications: [...] albuterol sulfate HFA 108 (90 Base) MCG/ACT inhalerIndications :Shortness of breath Inhale 2 Puffs into the lungs every 4 hours as needed for Wheezing. 8.5 g 5 5 Active atorvastatin (LIPITOR) 10 MG tabletIndications: Mixed hyperlipidemia Take 1 Tablet by mouth once daily. 90 tablet 3 5 Active DULoxetine (CYMBALTA) 60 MG capsuleIndications :Chronic midline low back pain without sciatica Take 1 Capsule by mouth once daily. 30 capsule 4 5 Active nitroglycerin (NITROSTAT) 0.4 MG SL tablet DISSOLVE 1 TABLET UNDER THE TONGUE NEEDED FOR CHEST PAIN. REPEAT EVERY 5 MINUTES 3 TIMES. IF NO RELIEF GO TO ER. 25 tablet 11 5 Active Jardiance 10 MG tablet tabletIndications: Type 2 diabetes mellitus with hyperglycemia, without long-term current use of insulin Take 1 Tablet by mouth once daily. 30 tablet 2 5 Active diazePAM (VALIUM) 5 MG tabletIndications: Chronic pain syndrome,Anxiety about health Take 1 tablet by mouth Every 12 (Twelve) Hours As Needed for Anxiety. 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 90 tablet 5 025 Discontin ued(Reord er) Active Problems Problem Noted Date Diagnosed Date [...] (Eight) Hours As Needed for Severe Pain. [facility] opiate use 01/10/2022 Chronic systolic heart failure 11/01/2016 Overview (11/01/2016): Echocardiogram 08/22/2016: EF 30%, moderate MR, mild pulmonary hypertension Ischemic cardiomyopathy 10/17/2016 Generalized weakness 09/01/2016 Pleural effusion 09/01/2016 Paroxysmal atrial fibrillation 08/31/2016 Assessment & Plan (12/10/2024 3:47 PM EDT): Orders: TSH Rfx On Abnormal To Free T4 Persistent atrial fibrillation 07/11/2016 Overview (11/01/2016): Diagnosed at [facility] with initiation of Xarelto and amiodarone, [...] ventricular rate of 82 beats per minute. NE interval 164 milliseconds, QRS duration 96 milliseconds, QTC 418 milliseconds. Coronary artery disease invo lving [place] coronary artery of [place] heart without angina pectoris 01/30/2016 Overview (07/11/2016): [...] 2010 - Chest pain with catheterization revealing TRADING MANAGER of RCA collateralized, normal LVEF. Unchanged from prior. January 2016 -- cardiac catheterization by Rudolph Jj revealing TRADING MANAGER of RCA (collateralized) and 90% stenosis of [...] Type Department Care Team Description 04/12/2025 Refill [facility] [address] [place], [place] [address] Cheko Heredia MD Chronic pain syndrome; Spondylosis of lumbar region without myelopathy or radiculopathy 03/11/2025 2:00 PM EDT Office Visit [facility] [address] [facility] [place] [place] [address] Cheko Heredia MD Type 2 diabetes mellitus with hyperglycemia, without long-term current use of insulin (Primary Dx); Chronic pain syndrome; Chronic pain syndrome; Spondylosis of lumbar region without myelopathy or radiculopathy; Anxiety about health 03/11/2025 Travel 03/10/2025 Refill [facility] [address] [facility] [place] [address] Cheko Heredia MD Type 2 diabetes mellitus with hyperglycemia, without long-term current use of insulin 02/25/2025 Refill [facility] [address] [facility] [address] Cheko Heredia MD Chronic midline low back pain without sciatica 02/09/2025 Refill [facility] [address] [facility] [place] [address] Cheko Heredia MD Mixed hyperlipidemia 02/08/[address] [facility] [address] [place] [address] Cheko Heredia MD Chronic pain syndrome; Spondylosis [...] Industry Job Start Date Job End Date [employer] Not on file Not on file [...] [facility] [address] [place] [address] Cheko Heredia MD [address] [address] 12/12/2025 2:15 PM EDT Office Visit [facility] [address] [place] [address] Cheko Heredia MD [address] [place] [address] Scheduled Procedures Name Priority Associated [...] Discontinued 05/16/2016 Medical Devices Implanted Type Area Internet Marketing Executive Device Identifier Shelf Expiration Date Model / Serial / Lot Stent Stent Stent Description:3 cardiac stents Stent Description:3 cardiac stents Stent Description:3 cardiac stents Procedures Procedure Name Priority Date/Time Associated Diagnosis Comments SCANNED - LABS 04/14/2025 SCANNED - LABS 04/14/2025 SCANNED EKG 04/07/2025 SCANNED EKG 04/07/2025 SCANNED [...] Recently Relevant to Health Maintenance Results * LABS SCANNED (04/14/2025) Only the most recent of2 resultswithin the time period is included. Cheko Heredia MD LAB BLOOD ORDERABLES Fin al Result * ECG Scan (04/07/2025) Only the most recent of2 resultswithin the time period is included. us Cheko Heredia MD ECG ORDERABLES Final Re [...] 6:09 AM EDT Performed at: 01 - [facility] [address] [place] [id number] Yarn Spinner: Jose Weller PhD, Phone: [phone] Patient Fasting: Y Cheko Heredia MD LAB BLOOD ORDERABLES Fin al Result Performing Organization Address City/[facility]/ZIP Co de Phone Number [facility] (AMBULATORY) [address] [place] [address], [facility] [address] [place] [id number], * (ABNORMAL) Lipid Panel (12/10/2024 3:04 PM EDT) [facility] Total Cholesterol 152 100 - 199 mg/dL [facility] Triglycerides 243(H) 0 - 149 mg/dL [facility] HDL Cholesterol 52 >39 mg/dL [facility] VLDL Cholesterol Kirt 39 5 - 40 mg/dL [facility] LDL Chol Calc (NIH) 61 0 - 99 mg/dL [facility] Blood 12/10/2024 3:04 PM EDT 12/10/2024 Narrative [facility]) - 12/11/2024 6:09 AM EDT Performed at: - [facility] [id number] Yarn Spinner: Jose Weller PhD, Phone: [phone] Patient Fasting: Y Cheko Heredia MD LAB BLOOD ORDERABLES Fin al Result Performing Organization Address City/[facility]/ZIP Co de Phone Number [facility] (AMBULATORY) [address] [place] [address], [place] [phone] [facility] [address] [place] [id number], * SCANNED - INFLUENZA (07/21/2023) [facility] CHART REVIEW TABS Final Re sult from Last 3 Months or Most Recently Relevant to Health Maintenance Insurance MEDICARE A & B [facility] Advance Directives * Full Code (Latest Code Status on File) Date Activated Date Inactivated Comments 09/01/2016 12:25 AM 09/02/2016 3:37 PM Care Teams Dinkey Press Operator Relationship Specialty Start Date End Date Cheko Heredia MD [address] [facility] [place] [address] PCP - General Family Medicine 01/10/22
--- OUTSIDE RECORDS SUMMARY | 2025-04-22 14:33 | XMS_ITS | Encounter Summary ---
Author Organization [place] [address] Care Team Providers Care Repairer Evaporator Name Role Phone Unavailable Primary Care Provider Unavailabl e Encounter Details Date Type Department Care Team (Late st Contact Info) Description 08/08/2021 Orders Only [facility] [address] [place] [address] [address] [place] [address] Edis Garza MD [address] [place], [place] [id number] Social History Tobacco Use Types Packs/Day Years [...] 10:45 AM EDT Office Visit [facility] [address] [id number] Chris Manzanares MD [address] [place] [address] documented as of this encounter Procedures Procedure Name Priority Date/Time Associated Diagnosis Comments EP LAB RECORDINGS Routine 08/08/2021 11:22 AM EST documented in this encounter Results * EP LAB RECORDINGS (08/08/2021 11:22 AM EST) 08/08/2021 11:2 2 AM EST us Edis Garza MD CARDIAC CATH ORDERABLES Final Result Performing Organization Address City/State/[facility] Co de Phone Number [facility] [address] [place] [address] documented in this encounter Visit Diagnoses Not on filedocumented in this encounter Additional Health Concerns Assessment Noted Time A fall risk assessment has been complete d for the patient 08/03/2021 2:11 PM EST documented as of this encounter
--- OUTSIDE RECORDS SUMMARY | 2025-04-22 14:33 | XMS_ITS | Encounter Summary ---
Author Organization [facility] Address [address] [place] [address] Care Team Providers Care Dog License Officer Supervisor Name Role Phone Cheko Heredia MD Primary Care Provider + Reason for Visit * Reason Onset Date Comments Med Refill 04/12/2025 Encounter Details Date Type Department Care Team (Late st Contact Info) Description 04/12/2025 Refill [facility] [address] [place] [address] Cheko Heredia MD [address] [place] [address] Chronic pain syndrome; Spondylosis of [...] Industry Job Start Date Job End Date [employer] Not on file Not on file [...] Pain. Pharmacy where request should be sent: [facility] - [place], [place] - [address] [facility] [phone] [facility] [phone] Last office visit with prescribing clinician: 03/11/2025 [...] CENTER FAMILY [facility]INE [address] [place] [address] Cheko Heredia MD [address] [place] [address] 12/12/2025 2:15 PM EDT Office Visit [facility] [address] [place] [address] Cheko Heredia MD [address] [place] [address] Scheduled Procedures Name Priority Associated Diagnoses Date/Ti me ABLATION A-FIB Atrial fibrillation with RVR Cardiomyopathy, dilated, nonischemic Essential hypertension documented as of this encounter Visit Diagnoses Diagnosis Chronic pain syndrome Spondylosis of lumbar region without myelopathy or radiculopathy documented in this encounter Care Teams Dog License Officer Supervisor Relationship Specialty Start Date End Date Cheko Heredia MD [address] [place] [address] PCP - General Family Medicine 01/10/22 documented as of this encounter
--- OUTSIDE RECORDS SUMMARY | 2025-04-22 14:33 | XMS_ITS | Encounter Summary ---
[facility] Address [address] [place] [id number] Care Team Providers Care Music Theory Teacher Name Role Phone Cheko Heredia MD Primary Care Provider + Encounter Details Date Type Department Care Team (Late st Contact Info) Description 10/24/2014 External CPT II TRAVELING NURSE - [facility] Social History Tobacco Use [...] Description 06/13/2025 3:00 PM EDT Office Visit [facility] [address] [place] [address] Cheko Heredia MD [address] [facility] [place] [address] 12/12/2025 2:15 PM EDT Office Visit [facility] [address] [place] [address] Cheko Heredia MD [address] [place] [address] Scheduled Procedures Name Priority Associated Diagnoses Date/Ti me ABLATION A-FIB Atrial fibrillation with RVR Cardiomyopathy, dilated, nonischemic Essential hypertension documented as of this encounter Visit Diagnoses Not on filedocumented in this encounter Care Teams Music Theory Teacher Relationship Specialty Start Date End Date Cheko Heredia MD [address] [place] [address] PCP - General Family Medicine 01/10/22 documented as of this encounter
--- OUTSIDE RECORDS SUMMARY | 2025-04-22 14:33 | XMS_ITS | Clinical Summary ---
Author Organization [employer] ([place], [place], [place], [place]) Address [address] [place] [id number] Care Team Providers Care Education Professional Name Role Phone Unavailable Primary Care Provider [...]
--- OUTSIDE RECORDS SUMMARY | 2025-04-22 14:33 | XMS_ITS | Encounter Summary ---
Author Organization [employer] ([place], [place], [place], [place]) Address [address] [place] [address] Care Team Providers Care Offset Second Press Operator Name Role Phone Unavailable Primary Care Provider Unavailabl e Encounter Details Date Type Department Care Team (Late st Contact Info) Description 02/09/2019 Transcribed Document [facility] Family Medicine [facility] [place] [address] ProviderSoham MD [facility] [place] [address] Social History Tobacco Use Types [...] Soham ProviderMD - 02/09/2019 12:11 PM CDT [place] [address] MINO HSU :1945 Visit Time:02/09/2019 [...] EDT Comments Appointment has been made Where: [address] [place] [address]- [facility] (1) Medications What How Much When Instructions [...] on each side. Do this in a cgwiw-jj-izbz direction. ? If you are male: ? [...] and water are not available, use hand oil dispatcher. ??? Always make sure there are no [...] 09/01/2006 Document Revised: 04/17/2018 Document Reviewed: 04/17/2018 [email or web address] Interactive Patient Education ?? 2019 [email or web address] Prostate Laser Surgery, Care After This [...] clear or pale yellow. Medicines ??? Take nacm-hps-lugucsl and prescription medicines, including stool softeners, only [...] 09/01/2006 Document Revised: 04/18/2017 Document Reviewed: 04/18/2017 [email or web address] Interactive Patient Education ?? 2019 [employer]. Outpatient Surgery, Adult, Care After These instructions [...] and water are not available, use hand oil dispatcher. ? Change your dressing as told by [...] or a bad smell. Medicines ??? Take tezl-fhj-jaqxqgm and prescription medicines only as told by [...] 12/22/2016 Document Revised: 04/09/2018 Document Reviewed: 12/22/2016 [email or web address] Interactive Patient Education ?? 2019 [employer] phenazopyridine (fen AY matthew PIR i [...] or ?? a genetic enzyme deficiency called qzcpycs-6-nddfosiho dehydrogenase (G6PD) deficiency. FDA category B. Phenazopyridine [...] may report side effects to FDA at 0-570-VZQ-0975. What other drugs will affect phenazopyridine? Other drugs may interact with phenazopyridine, including prescription and yzuf-dvz-vztdfqf medicines, vitamins, and herbal products. Tell each [...] to ensure that the information provided by [employer]') is accurate, up-to-date, and complete, but no guarantee is made to that effect. Drug information contained herein may be time sensitive. [employer] information has been compiled for use by healthcare practitioners and consumers in the [place] and therefore [employer] does not warrant that uses outside of the [place] are appropriate, unless specifically indicated otherwise. [employer]s drug information does not endorse drugs, diagnose patients or recommend therapy. [employer]s drug information is an informational resource designed [...] effective or appropriate for any given patient. [facility] does not assume any responsibility for any aspect of healthcare administered with the aid of information [facility] provides. The information contained herein is not intended to cover all possible uses, directions, precautions, warnings, drug interactions, allergic reactions, or adverse effects. If you have questions about the drugs you are taking, check with your doctor, nurse or pharmacist. Copyright 9461-3164 [facility] [employer]. Version: 3.05. Revision Date: 01/06/2014.nitrofurantoin (BELKIS troe [...] electrolyte imbalance or vitamin B deficiency; ?? spvytpw-2-vfcitfghm dehydrogenase (G6PD) deficiency; or ?? any type [...] may report side effects to FDA at 8-798-AGD-6265. What other drugs will affect nitrofurantoin? Other drugs may interact with nitrofurantoin, including prescription and lbys-kti-lgtptgs medicines, vitamins, and herbal products. Tell each [...] to ensure that the information provided by [employer]') is accurate, up-to-date, and complete, but no guarantee is made to that effect. Drug information contained herein may be time sensitive. [employer] information has been compiled for use by healthcare practitioners and consumers in the [place] and therefore [employer] does not warrant that uses outside of the [place] are appropriate, unless specifically indicated otherwise. [employer] drug information does not endorse drugs, diagnose patients or recommend therapy. [employer] drug information is an informational resource designed [...] effective or appropriate for any given patient. [employer] does not assume any responsibility for any aspect of healthcare administered with the aid of information [employer] provides. The information contained herein is not intended to cover all possible uses, directions, precautions, warnings, drug interactions, allergic reactions, or adverse effects. If you have questions about the drugs you are taking, check with your doctor, nurse or pharmacist. Copyright 3921-8978 [employer] Version: 8.01. Revision Date: 11/23/2013.acetaminophen and hydrocodone (a SEET a MIN oh fen and cassi AMBROCIO done) Hycet, Lorcet, Hustle, Verdrocet, Vicodin, Xodol, Zamicet What is the [...] may report side effects to FDA at 1-456-KPM-5086. What other drugs will affect acetaminophen and [...] affect acetaminophen and hydrocodone, including prescription and dxrn-idx-okbnctt medicines, vitamins, and herbal products. Not all [...] to ensure that the information provided by [employer]') is accurate, up-to-date, and complete, but no guarantee is made to that effect. Drug information contained herein may be time sensitive. [employer] information has been compiled for use by healthcare practitioners and consumers in the [place] and therefore [employer] does not warrant that uses outside of the [place] are appropriate, unless specifically indicated otherwise. [employer] drug information does not endorse drugs, diagnose patients or recommend therapy. [employer] drug information is an informational resource designed [...] effective or appropriate for any given patient. [employer] does not assume any responsibility for any aspect of healthcare administered with the aid of information [employer] provides. The information contained herein is not intended to cover all possible uses, directions, precautions, warnings, drug interactions, allergic reactions, or adverse effects. If you have questions about the drugs you are taking, check with your doctor, nurse or pharmacist. Copyright 7446-1893 [employer]. Version: 15.. Revision Date: 07/20/2018.docusate (oral/rectal) (DOK [...] 8 ounces of milk, fruit juice, or formula and drink the mixture right away. [...] may report side effects to FDA at 1-998-CZZ-8076. What other drugs will affect docusate? Other drugs may interact with docusate, including prescription and itwa-wza-fhixvvy medicines, vitamins, and herbal products. Tell each [...] to ensure that the information provided by [employer]') is accurate, up-to-date, and complete, but no guarantee is made to that effect. Drug information contained herein may be time sensitive. [employer] information has been compiled for use by healthcare practitioners and consumers in the [place] and therefore [employer] does not warrant that uses outside of the [place] are appropriate, unless specifically indicated otherwise. [employer]s drug information does not endorse drugs, diagnose patients or recommend therapy. [employer] drug information is an informational resource designed [...] effective or appropriate for any given patient. [employer] does not assume any responsibility for any aspect of healthcare administered with the aid of information [employer] provides. The information contained herein is not intended to cover all possible uses, directions, precautions, warnings, drug interactions, allergic reactions, or adverse effects. If you have questions about the drugs you are taking, check with your doctor, nurse or pharmacist. Copyright 0850-8420 [employer]. Version: 3.03. Revision Date: 10/27/2013. Emergency Awareness [...] Assistance with quitting is available by contacting 8-021-LKJANOW. This is a free resource providing counseling, [...] sure to sign up for the [employer] patient portal, which gives you 07/04 access to your medical information ??? including these discharge instructions ??? using your computer, smartphone, or tablet. Just go to My Health Direct to get started. Questions? Call . Test Results Laboratory or Other Results This Visit (last charted value for your 02/09/2019 visit) No Laboratory or Other Results This Visit Patient Name:MINO HSU I have received this information and was given the opportunity to ask questions. Patient/Cuff Cutter Name: Patient/Cuff Cutter Signature: Relationship to Patient: Clinician/Hospital Cuff Cutter Signature: Date: documented in this encounter Plan of Treatment Not on file documented as of this encounter Visit Diagnoses Not on filedocumented in this encounter
--- OUTSIDE RECORDS SUMMARY | 2025-04-22 14:33 | XMS_ITS | Encounter Summary ---
[facility] Address [address] [place] [id number] Care Team Providers Care Game Farm Supervisor Name Role Phone Cheko Heredia MD Primary Care Provider + Encounter Details Date Type Department Care Team (Late st Contact Info) Description 12/12/2014 External CPT II LIME TRIMMER - [facility] Social History Tobacco Use [...] Visit [facility] [address] [place] [address] Cheko Heredia MD [address] [facility] [place] [address] 12/12/2025 2:15 PM EDT Office Visit [facility] [address] [place] [address] Cheko Heredia MD [address] [place] [address] Scheduled Procedures Name Priority Associated Diagnoses Date/Ti me ABLATION A-FIB Atrial fibrillation with RVR Cardiomyopathy, dilated, nonischemic Essential hypertension documented as of this encounter Visit Diagnoses Not on filedocumented in this encounter Care Teams Game Farm Supervisor Relationship Specialty Start Date End Date Cheko Heredia MD [address] [place] [address] PCP - General Family Medicine 01/10/22 documented as of this encounter
--- OUTSIDE RECORDS SUMMARY | 2025-04-22 14:33 | XMS_ITS | Encounter Summary ---
Author Organization [employer] ([place], [place], [place], [place]) Address [address] [place] [address] Care Team Providers Care New Accounts Banking Representative Name Role Phone Unavailable Primary Care Provider Unavailabl e Encounter Details Date Type Department Care Team (Late st Contact Info) Description 02/09/[address] [facility] [place] Family Medicine [facility] [place] [address] ProviderSoham MD [place] [address] Social History Tobacco Use Types [...] Soham ProviderMD - 02/09/2019 8:33 AM CDT [facility] Main OR PostOp Summary Primary Physician: EZ ODOM MD-URO Finalized Date/Time: 02/09/19 12:22:42 Pt. Name: HSUMINO BLANCHARD /Sex: 1945 Male Med Rec #: [id number] Physician: EZ ODOM MD-URO Financial #: [id number] Pt. Type: O Room/Bed: /4 Admit/Disch: 02/09/19 06:12:00 - Institution: [facility] Main OR PostOp Case Times Entry 1 In PACU II 02/09/19 10:36:00 Ready for PACU II 02/09/19 11:15:00 Discharge Discharge from PACU 02/09/19 12:22:00 II Last Modified By: EMELY HINSON, ERIK 02/09/19 12:22:27 [facility] Main OR PostOp Case Times Audit 02/09/19 12:22:27 Digital Tech: IESHA Modifier: IESHA 1 <*> Ready for PACU II Discharge 02/09/19 11:34:00 1 <+> Discharge from PACU II Finalized By: EMELY HINSON RN Document Signatures Signed By: EMELY HINSON RN 02/09/19 12:22 documented in this encounter Plan of Treatment Not on file documented as of this encounter Visit Diagnoses Not on filedocumented in this encounter
--- OUTSIDE RECORDS SUMMARY | 2025-04-22 14:33 | XMS_ITS | Encounter Summary ---
Author Organization [place] [address] Care Team Providers Care Plant Inspector Name Role Phone Unavailable Primary Care Provider Unavailabl e Reason for Visit * Reason Onset Date Comments Other 04/19/2025 Encounter Details Date Type Department Care Team (Late st Contact Info) Description 04/19/2025 Telephone Structural Hrt/Valve [address] [place] [address] [place], [place] [id number] Renetta Conklin RN Other Social History Tobacco [...] Telephone Encounter - Renetta Conklin RN - 04/19/2025 11:49 AM EDT Needs Shared Decision appt. Set up for 05/[address] Manzanares. Asked pt to call me if day and time do not work .Contact [facility] provided. documented in this encounter Plan of Treatment Upcoming Encounters Date Type Department Care Team (Late st Contact Info) Description 05/10/2025 10:45 AM EDT Office Visit [facility] [place] [id number] Chris Manzanares MD [address] [place] [address] documented as of this encounter Visit Diagnoses Not on filedocumented in this encounter Additional Health Concerns Assessment Noted Time A fall risk assessment has been complete d for the patient 09/28/2024 1:34 PM EST documented as of this encounter
--- OUTSIDE RECORDS SUMMARY | 2025-04-22 14:33 | XMS_ITS | Clinical Summary ---
Author Organization [facility] Address [address] [place] [address] Care Team Providers Care Flight Simulator Teacher Name Role Phone Kojo Vu Primary Care Provider [phone] Skinny Massey MD Unavailable [phone] Allergies Active Allergy Reactions Criticality Noted [...] (04/19/2019): Added automatically from request for surgery [id number] Social History Tobacco Use Types Packs/Day Years [...] 2025 Insurance MEDICARE ANTHEM MEDICARE PART A [facility] [address] [place] [id number] ANTHEM MEDICARE ANTHEM Care Teams Flight Simulator Teacher Relationship Specialty Start Date End Date Kojo Vu [address] [place] [address] PCP - General 09/18/18 Skinny Massey MD [address] [place] [address] [id number] Urology 09/22/22
--- OUTSIDE RECORDS SUMMARY | 2025-04-22 14:33 | XMS_ITS | Encounter Summary ---
Author Organization [place] [address] Care Team Providers Care Senior Audit Manager Name Role Phone Unavailable Primary Care Provider Unavailabl e Reason for Visit * Reason Onset Date Comments Other 04/04/2025 Encounter Details Date Type Department Care Team (Late st Contact Info) Description 04/04/2025 Telephone Structural Hrt/Valve [address] [place] [address] [place], [place] [phone] Renetta Conklin RN Other Social History Tobacco [...] 10:45 AM EDT Office Visit [facility] [place] [phone] Chris Manzanares MD [address] [place] [address] documented as of this encounter Visit Diagnoses Not on filedocumented in this encounter Additional Health Concerns Assessment Noted Time A fall risk assessment has been complete d for the patient 09/28/2024 1:34 PM EST documented as of this encounter
--- OUTSIDE RECORDS SUMMARY | 2025-04-22 14:33 | XMS_ITS | Encounter Summary ---
Author Organization [employer] ([place], [place], [place], [place]) Address [address] [place] [address] Care Team Providers Care Traffic Investigator Name Role Phone Unavailable Primary Care Provider Unavailabl e Encounter Details Date Type Department Care Team (Late st Contact Info) Description 01/27/2019 Transcribed Document [facility] [place] Family Medicine [address] [place] [address] ProviderSoham MD [address] [place] [address] Social History Tobacco Use Types [...] Source : Measured Height Entry Format : [place] Height, Feet : 0 ft(Converted to: 0 cm, 0 Inch) Height, Inches : 72 Inch(Converted to: 6 ft 0 Inch, 182.88 cm) Clinical Height : 182.88 cm Weight Source : Standing scale Weight Entry Format : [place] Clinical Dosing Weight : 90.91 kg Weight, Pounds : 200 lb Body Surface Area (BSA) : 2.13 m2 Body Mass Index : 27.2 kg/m2 (HI) [place] Body Weight : 77 kg Vielka Dillon [...] : Living will, Medical durable power of transactional attorney (proxy) Copy Advance Directive Verified/on Chart [...] : elva Emergency Contact #2 Relationship : elav Vielka Dillon RN - 02/05/2019 12:50 EDT Support Person/Patient Psychological Operations Specialist : Yes Support Person/Pt Rep Name : Jesus Hammond- brother [phone] Want Family/Rep/Phys Notified of Admit : No Information Obtained From : Patient Primary Language : [place] Islander Preferred Communication Mode : Verbal Communication Barrier [...]
--- OUTSIDE RECORDS SUMMARY | 2025-04-22 14:33 | XMS_ITS | Encounter Summary ---
Author Organization [employer] ([place], [place], [place], [place]) Address [address] [place] [address] Care Team Providers Care Wind Tunnel Engineer Name Role Phone Unavailable Primary Care Provider Unavailabl e Encounter Details Date Type Department Care Team (Late st Contact Info) Description 02/09/2019 Transcribed Document [facility] Family Medicine [facility] [place] [address] ProviderSoham MD [facility] [place] [address] Social History Tobacco Use Types [...] 1945 Associated Diagnoses: None Author: SACHIN BERNAL, BATT PACKER Chief Complaint BPH Review of Systems ROS [...] Stented coronary artery x3 / SNOMED CT 0583212827 / Confirmed Pneumonia / SNOMED CT 042400203 / Confirmed Hyperlipidemia / SNOMED CT 12336727 / Confirmed High blood pressure / SNOMED CT 35024119 / Confirmed Hemorrhoids / SNOMED CT 968088881 / Confirmed Hard of hearing, left ear / SNOMED CT 879592433 / Confirmed Disorder of prostate / SNOMED CT 24435469 / Confirmed Cataract / SNOMED CT 811013730 / Confirmed Back pain / SNOMED CT 5027122660 / Confirmed A-fib / SNOMED CT 16824885 / Confirmed, Active Problems (10) A-fib Back [...]
--- OUTSIDE RECORDS SUMMARY | 2025-04-22 14:33 | XMS_ITS | Referral Summary ---
Author Organization [employer] ([place], [place], [place], [place]) Address [address] [place] [address] Care Team Providers Care Wax Ball Knock Out Worker Name Role Phone Unavailable Primary [...]
--- OUTSIDE RECORDS SUMMARY | 2025-04-22 14:33 | XMS_ITS | Encounter Summary ---
Author Organization [employer] ([place], [place], [place], [place]) Address [address] [place] [address] Care Team Providers Care Health Outreach Worker Name Role Phone Unavailable Primary Care Provider Unavailabl e Encounter Details Date Type Department Care Team (Late st Contact Info) Description 02/09/2019 Transcribed Document [facility] [place] Family Medicine [facility] [place] [address] ProviderSoham MD [facility] [place] [address] Social History Tobacco Use Types [...] PROCEDURE: GreenLight photovaporization of the prostate. SURGEON: Bairno Galvez MD RESIDENT: Filippo Parsons MD (R), PGY-4 ANESTHESIA: General. SPECIMENS: None. BLOOD LOSS: 50 mL. INTRAVENOUS FLUIDS: See Anesthesia record. DRAINS: A 20-[place] coude catheter with 30 mL of sterile water in the balloon. OPERATIVE INDICATIONS: Mr. Hsu is a 73-year-old gentleman with a history of lower urinary tract symptoms, which have been refractory to five 4-pjkkf-glbuyznkr inhibitors, in addition the patient has been [...] the case. 4. Successful placement of a 20-[place] coude catheter with 30 mL of sterile [...] sheath. We therefore dilated the patient from 24-[place] to 28-[place] utilizing male urethral sounds due to the patient having undergone a previous inflatable penile prosthesis placement. We were very elena and we were very gentle in our dilation and this was noted to be atraumatic as there was no urethral bleeding during this. We then successfully introduced the 28-[place] continuous-flow resectoscope sheath again with the inner [...] Uro-Jet for local anesthesia and inserted a 20-[place] two-way coude catheter with 30 mL sterile [...] M.D. Electronically signed by Bhupinder Cordova Conversion Brazing Machine Operator Automatic Amyner at 12/30/2022 9:49 AM CDT documented in this encounter Plan of Treatment Not on file documented as of this encounter Visit Diagnoses Not on filedocumented in this encounter
--- OUTSIDE RECORDS SUMMARY | 2025-04-22 14:33 | XMS_ITS | Encounter Summary ---
Author Organization [employer] ([place], [place], [place], [place]) Address [address] [place] [address] Care Team Providers Care Engraved Roller Inspector Name Role Phone Unavailable Primary Care Provider Unavailabl e Encounter Details Date Type Department Care Team (Late st Contact Info) Description 02/09/2019 Transcribed Document [facility] Family Medicine [address] [place] [address] ProviderSoham MD [address] [place] [address] Social History Tobacco Use Types [...] and water are not available, use hand assistant terminal manager. ? Change your dressing as told [...] or a bad smell. Medicines ??? Take hpxo-iwk-mdgaefa and prescription medicines only as told by [...] 12/22/2016 Document Revised: 04/09/2018 Document Reviewed: 12/22/2016 [employer] Interactive Patient Education ? 2019 [employer] Urology Indwelling Urinary Catheter Care, Adult [...] on each side. Do this in a wuiqj-hf-tpkg direction. ? If you are male: ? [...] and water are not available, use hand assistant terminal manager. ??? Always make sure there are [...] 09/01/2006 Document Revised: 04/17/2018 Document Reviewed: 04/17/2018 [employer] Interactive Patient Education ? 2019 [employer] Prostate Laser Surgery, Care After This [...] clear or pale yellow. Medicines ??? Take exzo-fmf-ydbtpzk and prescription medicines, including stool softeners, only [...] 09/01/2006 Document Revised: 04/18/2017 Document Reviewed: 04/18/2017 [employer] App Interactive Patient Education ? 2019 [employer] documented in this encounter Plan of Treatment Not on file documented as of this encounter Visit Diagnoses Not on filedocumented in this encounter
--- OUTSIDE RECORDS SUMMARY | 2025-04-22 14:33 | XMS_ITS | Encounter Summary ---
Author Organization [facility] ([place], [place], [place], [place]) Address [address] [place] [address] Care Team Providers Care Retail Loss Prevention Officer Name Role Phone Unavailable Primary Care Provider Unavailabl e Encounter Details Date Type Department Care Team (Late st Contact Info) Description 02/09/2019 Transcribed Document [facility] [place] [facility] [place] [address] ProviderSoham MD [place] [address] Social History Tobacco Use Types [...] Soham ProviderMD - 02/09/2019 8:33 AM CDT [facility] Main OR IntraOp Summary Primary Physician: EZ ODOM MD-URO Finalized Date/Time: 02/10/19 10:14:52 Pt. Name: MINO BROWN /Sex: 1945 Male Med Rec #: [id number] Physician: EZ ODOM MD-URO Financial #: [id number] Pt. Type: O Room/Bed: /4 Admit/Disch: 02/09/19 06:12:00 - 02/09/19 10:22:00 Institution: [facility] IntraOp Case Attendance Entry 1 Entry 2 Entry 3 Case Attendee EZ ODOM CORNEA, MIHAELA, MD BREITIGAN, STEPHEN, CRNA MD-URO Role Performed Surgeon/Proceduralist, Anesthesiologist of PROCESS INSPECTOR/Nurse Commodity Buyer First Record Time In 02/09/19 08:17:00 02/09/19 [...] HERO DOUGLAS MD Madden, Jerrild Role Performed Cement Despatch Operator, First Resident Laser Grey Washer Time In 02/09/19 08:17:00 02/09/19 08:17:00 02/09/19 [...] Modified By: Swapna Vasquez RN 02/09/19 09:27:39 [facility] IntraOp Case Attendance Audit 02/09/19 09:27:39 Geothermal Technician: KARINA Modifier: KARINA 1 <+> Time Out [...] 7 <*> Procedure Prostate Green Light Laser [facility] IntraOp Case Times Entry 1 Patient In Room Time 02/09/19 08:17:00 Out Room Time 02/09/19 09:27:00 Anesthesia Start Time 02/09/19 08:17:00 Stop Time 02/09/19 09:27:00 Surgery / Procedure Times Start Time 02/09/19 08:33:00 Stop Time 02/09/19 09:16:00 Last Modified By: Swapna Vasquez RN 02/09/19 09:27:27 [facility] IntraOp Case Times Audit 02/09/19 09:27:27 Geothermal Technician: KARINA Modifier: POFFJAN <+> 1 Out Room Time <+> 1 Stop Time 02/09/19 09:16:05 Geothermal Technician: MANUELFFKULWINDER Modifier: POFFJAN <+> 1 Stop Time [facility] IntraOp Communication Entry 1 Communication To Family/Significant other Comment Start Communication By Swapna Vasquez RN Date and Time 02/09/19 08:33:00 Last Modified By: Swapna Vasquez RN 02/09/19 08:44:49 [facility] IntraOp Delays Entry 1 Delay Reason Surgeon late - no reason Duration 17 Minute(s) Comment surgeon at bedside at 0810 Last Modified By: Swapna Vasquez RN 02/09/19 08:37:30 [facility] IntraOp Departure from OR Entry 1 Integumentary Assessment Integumentary WDL Assessment WDL Transfer/Handoff Transfer to PACU Phase I Handoff Method Phone call Handoff Reported to JEFFERSON MATHUR RN Post-op Transport Stretcher/Gurney Via Patient Transport ALEX CORDERO, Accompanied by CHANDA MOLINA JOHN, MD Last Modified By: Swapna Vasquez RN 02/09/19 09:27:52 [facility] IntraOp Departure from OR Audit 02/09/19 09:27:52 Geothermal Technician: POFFJAN Modifier: POFFJAN <+> 1 Handoff Reported to 02/09/19 09:19:07 Geothermal Technician: POFFJAN Modifier: POFFJAN <+> 1 Patient Transport Accompanied by [facility] IntraOp Fire Risk Assessment Entry 1 Fire [...] Modified By: Swapna Vasquez RN 02/09/19 08:41:29 [facility] IntraOp General Case Pack Puller 1 Case Information OR OR 03 [facility] Case Level 1 Room Verified Yes Wound Class II - Clean-Contaminated Specialty SN Urology Anesthesia Type General ASA Class 3 Diagnosis 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 Postop Same As Preop Yes 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 Last Modified By: Swapna Vasquez RN 02/09/19 09:00:23 [facility] IntraOp General Case Data Audit 02/09/19 09:00:23 Geothermal Technician: MANUELLEWISKULWINDER Modifier: POEDSON <+> 1 Postop Same As Preop <+> 1 Preop Diagnosis <+> 1 Postop Diagnosis [facility] IntraOp Intraoperative Assessment Entry 1 Handoff Method [...] Modified By: Swapna Vasquez RN 02/09/19 08:43:17 [facility] IntraOp Intraoperative Equipment Entry 1 Type Monitoring Equipment Intraop Monitoring Electrocardiogram Three lead placement (ECG) Electrode Placement Blood Pressure Non-Invasive BP Device Source Blood Pressure Arm, right upper Location Pulse Oximeter Hand, left Probe Site Antiembolic Devices Antiembolic Devices Sequential compression device, knee high Antiembolic Device Bilateral Location Antiembolic Device [id number] ID Number Scopes Photo/Video Documentation Photo No Video No Intraop Equipment Sequential compression Comment devices on and in operation prior to induction of anesthesia. Last Modified By: Swapna Vasquez RN 02/09/19 08:44:16 [facility] IntraOp Medication Admin Entry 1 Entry 2 Entry 3 Medication/Irrigant ZIGGY IRR 0.9% NACL B&O 16A Suppository - ZIGGY IRR NACL 0.9PCT 1000ML --[id number] 3000ML-[id number] Combo Med List Time Administered 02/09/19 08:33:00 [...] Medication/Irrigant lidocaine 2% urojet 10ml jelly - [id number] Combo Med List Time Administered 02/09/19 09:14:00 Route of Local, urethra Administration Dose Dose 10 Unit of Measure ml Volume Administered By HERO ARMAS MD Procedure Irrigation Irrigant Volume In Irrigant Volume Out Last Modified By: Swapna Vasquez RN 02/09/19 09:18:40 [facility] IntraOp Medication Admin Audit 02/09/19 09:18:40 Geothermal Technician: KARINA Modifier: KARINA 1 <*> Administered By EZ ODOM MD-URO 1 <+> Irrigant Volume In 1 <+> Irrigant Volume Out 2 <*> Medication/Irrigant B&O 16A Suppository - [id number] 2 <+> Dose 2 <+> Time Administered 3 <*> Medication/Irrigant ZIGGY IRR NACL 0.9PCT 3000ML-[id number] 3 <+> Irrigant Volume In 3 <+> Irrigant Volume Out 4 <*> Medication/Irrigant lidocaine 2% urojet 10ml jelly - [id number] 4 <+> Time Administered 02/09/19 08:47:57 Geothermal Technician: KARINA Modifier: KARINA <+> 4 Medication/Irrigant <+> 4 Route of Administration <+> 4 Administered By <+> 4 Dose <+> 4 Unit of Measure [facility] IntraOp Patient Positioning Entry 1 Procedure Prostate [...] Modified By: Swapna Vasquez RN 02/09/19 08:41:05 [facility] IntraOp Sign In Entry 1 Patient, Site, [...] Modified By: Swapna Vasquez RN 02/09/19 08:37:40 [facility] IntraOp Sign Out Entry 1 RN Confirmation [...] Modified By: Swapna Vasquez RN 02/09/19 09:27:35 [facility] IntraOp Sign Out Audit 02/09/19 09:27:35 Geothermal Technician: KARINA Modifier: KARINA <+> 1 RN Sign Out Signature Date/Time 02/09/19 09:18:55 Geothermal Technician: KARINA Modifier: KARINA <+> 1 Urinary Catheter Documented in IView [facility] IntraOp Skin Prep Entry 1 Procedure Prostate Green Light Laser Prescribed Yes Pre-Surgical Prep Completed Prep Area Genitalia Intraop Prep Integumentary WDL Assessment WDL Prep Agents Betadine solution Prep by Swapna Vasquez RN Hair Removal Last Modified By: Swapna Vasquez RN 02/09/19 08:43:49 [facility] IntraOp Surgical Procedures Entry 1 Procedure Prostate Green Light Laser Additional GREENLIGHT LASER OF Procedure PROSTATE Description Primary Procedure Yes Primary Surgeon EZ ODOM MD-URO Start 02/09/19 08:33:00 Stop 02/09/19 09:16:00 Anesthesia Type General Specialty SN Urology Wound Class II - Clean-Contaminated Last Modified By: Swapna Vasquez RN 02/09/19 09:16:11 [facility] IntraOp Surgical Procedures Audit 02/09/19 09:16:11 Geothermal Technician: KARINA Modifier: KARINA <+> 1 Stop [facility] IntraOp Temp Regulation Devices Entry 1 Temp Regulation Temperature Warm blankets, Room Regulation Device temperature Temperature Upper body Regulation Site Temperature Swapna Vasquez RN Regulation Device Applied by Temperature Patient's temperature Regulation Comment monitored by anesthesia provider. Forced air warming device settings controlled by anesthesia provider. Last Modified By: Swapna Vasquez RN 02/09/19 08:44:27 [facility] IntraOP Time Out Entry 1 Procedure to [...]
--- OUTSIDE RECORDS SUMMARY | 2025-04-22 14:33 | XMS_ITS | Encounter Summary ---
Author Organization [employer] ([place], [place], [place], [place]) Address [address] [place] [address] Care Team Providers Care Plastic Die Maker Apprentice Name Role Phone Unavailable Primary Care Provider Unavailabl e Encounter Details Date Type Department Care Team (Late st Contact Info) Description 02/09/2019 Transcribed Document [facility] [place] Family Medicine [facility] [place] [address] ProviderSoham MD [facility] [place] [address] Social History Tobacco Use Types [...] Soham ProviderMD - 02/09/2019 8:33 AM CDT [facility] Main OR PACU Summary Primary Physician: EZ ODOM MD-URO Finalized Date/Time: 02/09/19 10:42:36 Pt. Name: MINO HSU /Sex: 1945 Male Med Rec #: [id number] Physician: EZ ODOM MD-URO Financial #: [id number] Pt. Type: O Room/Bed: /4 Admit/Disch: 02/09/19 06:12:00 - Institution: [facility] Main OR PACU I Case Times Entry 1 In PACU I 02/09/19 09:28:00 Ready for PACU 02/09/19 10:32:00 Discharge Discharge from PACU 02/09/19 10:32:00 I Last Modified By: SONDRAVERÓNICA RN 02/09/19 10:42:24 [facility] Main OR PACU I Case Times Audit 02/09/19 10:42:24 Carpet Journeyman: [id number] Modifier: [id number] <+> 1 Ready for PACU Discharge <+> 1 Discharge from PACU I Finalized By: VERÓNICA AMARO RN Document Signatures Signed By: VERÓNICA AMARO RN 02/09/19 10:42 documented in this encounter Plan of Treatment Not on file documented as of this encounter Visit Diagnoses Not on filedocumented in this encounter
--- OUTSIDE RECORDS SUMMARY | 2025-04-22 14:33 | XMS_ITS | Encounter Summary ---
Author Organization [employer] ([place], [place], [place], [place]) Address [address] [place] [address] Care Team Providers Care Prototyper Name Role Phone Unavailable Primary Care Provider Unavailabl e Encounter Details Date Type Department Care Team (Late st Contact Info) Description 02/09/2019 Transcribed Document [facility] [place] Family Medicine [facility] [place] [address] ProviderSoham MD [facility] [place] [address] Social History Tobacco Use Types [...] Soham ProviderMD - 02/09/2019 8:33 AM CDT [facility] Main OR Preop Summary Primary Physician: EZ ODOM MD-URO Finalized Date/Time: 02/09/19 09:15:02 Pt. Name: MINO HSU /Sex: 1945 Male Med Rec #: [id number] Physician: EZ ODOM MD-URO Financial #: [id number] Pt. Type: O Room/Bed: /4 Admit/Disch: 02/09/19 06:12:00 - Institution: [facility] PreOp Case Times Entry 1 In Preop 02/09/19 06:27:00 Ready for Holding n/a Room Patient Ready for 02/09/19 07:23:00 Surgery Patient Out of Preop 02/09/19 08:15:00 Patient Out of n/a Holding Room Last Modified By: Reisner, Vielka, RN 02/09/19 09:15:01 [facility] PreOp Case Times Audit 02/09/19 09:15:01 Meat Blender: GIBRAN Modifier: REISNERK <+> 1 Patient Out of Preop 02/09/19 07:31:13 Meat Blender: GIBRAN Modifier: REISNERK <+> 1 In Preop Finalized By: Vielka Dillon, RN Document Signatures Signed By: Vielka Dillon RN 02/09/19 09:15 Electronically signed by T[facility] Conversion Cae Engineer Cerner at 12/30/2022 10:00 AM CDT documented in this encounter Plan of Treatment Not on file documented as of this encounter Visit Diagnoses Not on filedocumented in this encounter
--- NOTE | 2025-04-22 14:46 | CA_ITS ---
FINAL REPORT CLINICAL HISTORY: S/p right radial heart cath 04/11/25 with bruising and pain FINDINGS: Spectral and Doppler waveform evaluations of the right wrist was performed. Spectral analysis was performed. There is no evidence of pseudoaneurysm. IMPRESSION: No evidence of pseudoaneurysm. Reviewed, Interpreted and Dictated by Min Castrejon MD Transcribed by Marilia Wilkerson Authenticated and [facility]
--- NOTE | 2025-04-22 14:46 | CT_ITS ---
FINAL REPORT TECHNIQUE: The patient was injected with IV contrast. Axial images were obtained through the chest in a PE protocol. 3-D reconstruction images were also performed. Individualized dose reduction techniques using automated exposure control or adjustment of the MA and/or KV according to patient's size were employed. CLINICAL HISTORY: Shortness of breath, recent heart cath, tachycardi COMPARISON: 04/08/2025 FINDINGS: Mediastinal vasculature is adequately opacified. No pulmonary artery filling defects are identified to suggest PE. There is no aortic dissection. There is no axillary adenopathy. There is no hilar or mediastinal adenopathy. The heart size is normal. There is no pericardial or pleural effusion. Limited images of the upper abdomen demonstrate a 10 mm benign cyst in the left lobe of the liver. The gallbladder is not identified. No suspicious infiltrate or nodule is identified. There are moderate changes of centrilobular emphysema. IMPRESSION: No pulmonary embolus or dissection. Reviewed, Interpreted and Dictated by Min Castrejon MD Transcribed by Avani Nielson Authenticated and [facility]
--- NOTE | 2025-04-22 14:46 | CA_ITS ---
FINAL REPORT TECHNIQUE: Graded compression, spectral analysis and ultrasound images of the venous system of the right upper extremity were obtained. CLINICAL HISTORY: Right arm pain FINDINGS: The jugular vein, subclavian vein, axillary vein, brachial vein, cephalic vein and basilic venous system are fully compressible and demonstrate no evidence of thrombosis. IMPRESSION: No evidence of thrombosis of the venous system of the right upper extremity. Reviewed, Interpreted and Dictated by Min Castrejon MD Transcribed by Marilia Wilkerson Authenticated and [facility]
--- NOTE | 2025-04-22 14:49 | [facility].EDGENADL ---
Discharge Plan Disposition Patient Disposition: Home, Self-Care Condition: Good Prescriptions Prescriptions: No Action simethicone [Gas-X Extra Strength] 125 mg tablet,chewable 125 mg PO QD-BID PRN (Reason: Gastric Reflux) Movantik 12.5 mg tablet 12.5 mg PO DAILY Qty: 30 12RF Rx Instructions: must be taken on empty stomach; no food 1 hr after or 2-3 hrs before dose aspirin [Adult Aspirin Regimen] 81 mg tablet,delayed release (DR/EC) 81 mg PO DAILY Qty: 30 2RF ranolazine 1,000 mg tablet extended release 12 hr 1,000 mg PO BID Qty: 180 2RF atorvastatin 10 mg tablet 10 mg PO HS Patient Comments: TAKE 1 TABLET BY MOUTH ONCE DAILY. oxycodone-acetaminophen 5-325 mg tablet 1 tab PO Q8HP PRN (Reason: Pain) Patient Comments: TAKE 1 TABLET BY MOUTH EVERY 8 HOURS NEEDED FOR SEVERE PAIN. tamsulosin 0.4 mg capsule 0.4 mg PO HS Patient Comments: TAKE ONE CAPSULE BY MOUTH EVERY NIGHT AT BEDTIME pantoprazole 40 mg tablet,delayed release (DR/EC) 40 mg PO DAILY Patient Comments: TAKE 1 TABLET BY MOUTH ONCE DAILY. albuterol sulfate 90 mcg/actuation HFA aerosol inhaler 2 puff INHALATION Q4HP PRN (Reason: Shortness Of Breath) Patient Comments: INHALE 2 PUFFS INTO THE LUNGS EVERY 4 HOURS NEEDED FOR WHEEZING. diazepam 5 mg tablet 5 mg PO Q12HP PRN (Reason: Anxiety) Patient Comments: TAKE 1 TABLET BY MOUTH EVERY 12 HOURS NEEDED FOR ANXIETY. duloxetine 60 mg capsule,delayed release(DR/EC) 60 mg PO DAILY Patient Comments: TAKE 1 CAPSULE BY MOUTH ONCE DAILY. Jardiance 10 mg tablet 10 mg PO DAILY Patient Comments: TAKE 1 TABLET BY MOUTH ONCE DAILY. Xarelto 15 mg tablet 15 mg PO DAILY Creon 36,000-114,000- 180,000 unit capsule,delayed release(DR/EC) 1 cap PO TIDWMEAL Rx Instructions: Please take 1 capsule at the beginning or with your meal and administer with meals and/or snacks furosemide 40 mg Tablet 40 mg PO DAILY 30 Days Qty: 30 0RF metoprolol succinate [Toprol XL] 50 mg Tablet Extended Release 24 Hr 50 mg PO DAILY 30 Days Qty: 30 0RF clopidogrel 75 mg Tablet 75 mg PO DAILY 30 Days Qty: 30 0RF levofloxacin 750 mg tablet 750 mg PO Q24H Qty: 7 0RF lidocaine 5 % adhesive patch,medicated 1 patch topical DAILY Qty: 30 0RF Rx Instructions: leave on most painful area for up to 12 hrs Referrals Follow up/Referrals: Cheko Heredai MD [Primary Care Provider, Medical] - See instructions Activity Restrictions/Add. Instructions Additional Instructions/Restrictions: Return to the emergency department for any acute or worsening symptoms otherwise follow-up with your primary care provider. Clinical Impressions Clinical Impression: Localized swelling of right forearm Print Language Print Language: Danish Discharge ED Provider: Sen Petty General Adult HPI <Sen Petty MD - Last Filed: 04/22/25 15:19> General Chief complaint: Chest Pain Stated complaint: swelling and pain L arm- SOA, cough Time Seen by Provider: 04/22/25 14:37 Mode of Arrival: Ambulatory Source of Information: Patient Description of Symptoms (Recalled from ER Triage Doc. by RN): Patient presents to ED from home with c/o productive cough, SOA, reports his chest feels raw , also c/o pain at right radial heart cath site from 04/07/25. Reports he recently completed a round of ABX for PNE. History of Present Illness HPI narrative: Mino Hsu is a 79Y male with a past medical history of coronary artery disease, hypertension, A-fib on Xarelto, COPD, HFrEF who presents to the emergency department for concern of pain and swelling and bruising in his right arm status post cardiac cath as well as shortness of breath with cough. Patient states that at the end of March, he underwent heart catheterization and stenting as well as stenting of his lower extremities. He states that shortly after being discharged, he was also diagnosed with bronchitis and pneumonia and finished antibiotics on Friday. Since then, he has also developed a mildly productive cough and shortness of breath and believes his pneumonia might be coming back. Over the last few days, he reports worsening bruising and swelling to his right distal forearm on the volar aspect. He states that he feels some decreased field talent qualification specialist strength on the right. Related Data Home Medications ?Medication ?Instructions ?Recorded ?Confirmed albuterol sulfate 90 mcg/actuation 2 puff inhalation Q4HP PRN 08/25/24 04/14/25 aerosol inhaler Shortness Of Breath atorvastatin 10 mg tablet 10 mg PO HS 08/25/24 04/14/25 diazepam 5 mg tablet 5 mg PO Q12HP PRN Anxiety 08/25/24 04/14/25 duloxetine 60 mg capsule,delayed 60 mg PO DAILY 08/25/24 04/14/25 release empagliflozin 10 mg tablet 10 mg PO DAILY 08/25/24 04/14/25 (Jardiance) oxycodone-acetaminophen 5 mg-325 1 tab PO Q8HP PRN Pain 08/25/24 04/14/25 mg tablet pantoprazole 40 mg tablet,delayed 40 mg PO DAILY 08/25/24 04/14/25 release tamsulosin 0.4 mg capsule 0.4 mg PO HS 08/25/24 04/14/25 simethicone 125 mg chewable tablet 125 mg PO QD-BID PRN Gastric Reflux 03/29/25 04/14/25 (Gas-X Extra Strength) [id number] 1 cap PO TIDWMEAL 04/07/25 04/14/25 36,000-114,000-180,000 unit capsule,delay rel (Creon) rivaroxaban 15 mg tablet (Xarelto) 15 mg PO DAILY 04/07/25 04/14/25 Previous Rx's ?Medication ?Instructions ?Recorded lidocaine 5 % topical patch 1 patch topical DAILY #30 ea 11/23/24 ranolazine 1,000 mg 1,000 mg PO BID #180 tabs 11/29/24 tablet,extended release,12 hr aspirin 81 mg tablet,delayed 81 mg PO DAILY #30 tabs 01/04/25 release (Adult Aspirin Regimen) Movantik 12.5 mg tablet (naloxegol) 12.5 mg PO DAILY #30 tabs 03/29/25 clopidogrel 75 mg tablet 75 mg PO DAILY 30 days #30 tabs 04/09/25 furosemide 40 mg tablet 40 mg PO DAILY 30 days #30 tabs 04/09/25 metoprolol succinate 50 mg 50 mg PO DAILY 30 days #30 tabs 04/09/25 tablet,extended release 24 hr (Toprol XL) levofloxacin 750 mg tablet 750 mg PO Q24H #7 tabs 04/12/25 Allergies Allergy/AdvReac Type Severity Reaction Status Date / Time Sulfa (Sulfonamide Allergy Unknown Unknown Verified 04/14/25 14:49 Antibiotics) allergy reaction [facility] <Sen Petty MD - Last Filed: 04/22/25 15:19> [facility] Disclaimer: The information contained in this section may have been updated after the patient was seen, as this information can be updated by other users. Medical History Peripheral arterial disease Fever Cough Angina pectoris, unstable History of cardioversion HFrEF (heart failure with reduced ejection fraction) On amiodarone therapy Major depressive disorder Atypical angina COPD (chronic obstructive pulmonary disease) Dyspnea Fatigue Daytime somnolence Bilateral carotid artery stenosis Tobacco dependence syndrome Atrial fibrillation with RVR Atrial fibrillation HLD (hyperlipidemia) HTN (hypertension) Abnormal electrocardiography CAD (coronary artery disease) Surgical History History of banding of hemorrhoid History of colonoscopy History of esophagogastroduodenoscopy (EGD) History of cardiac radiofrequency ablation Family History Other Family history of cancer Family history of diabetes mellitus Social History Smoking Status: Current some day smoker tobacco type: cigarettes packs per day: 1 alcohol intake: never substance use type: denies use current occupational status: unemployed and retired Travel in the last 8 weeks?: Inside the [place] household members: none housing: house current occupational exposures/hazards: No Have you lived/traveled outside [place] in past 30 days?: No Contact w/someone who lives/traveled outside [place] past 30 days?: No Exposure to someone with infectious disease in past 14 days?: No Do you have a fever (greater than 100.4 F or 38 C)?: No Have you tested positive for COVID-19?: No Exposed to someone with COVID-19 in past 14 days?: No Do you have a sore throat?: No Do you have a cough?: No Do you have any weakness?: No Do you have any diarrhea?: No Are you experiencing any unusual bleeding?: No Do you have any muscle aches/pain?: No Do you have any abdominal pain?: No Are you experiencing loss of taste or smell?: No Other Medical History Have you received the Flu Vaccine for this season: No Have you received the Pneumonia Vaccine: Yes <Sen Petty MD - Last Filed: 04/22/25 15:19> ROS Obtained: Yes Systems reviewed as appropriate & no additional complaints except as documented Physical Exam <Sen Petty MD - Last Filed: 04/22/25 15:19> General General appearance: alert and in no apparent distress Head Head exam: atraumatic Eye Eye exam: Present normal appearance ENT ENT exam: Present normal external ear exam Neck Neck exam: Present full ROM Chest Chest inspection: Present symmetric chest wall rise Respiratory Respiratory exam: Present normal lung sounds bilaterally; Absent respiratory distress, wheezes or stridor Cardiovascular Cardiovascular exam: Present normal rhythm and tachycardia Abdominal Exam Abdominal exam: Present soft; Absent tenderness or guarding exam: Present deferred Extremities Exam Extremities exam: Present normal inspection and other (RUE: Bruising in multiple stages of healing to the distal forearm. 2+ radial pulse. 5 out of 5 field talent qualification specialist strength. Sensation grossly intact. Mild amount of edema in the distal forearm.) Back Exam Back exam: Present normal inspection Neurological Exam Neurological exam: Present alert and oriented X3 Psychiatric Psychiatric exam: Present normal affect Skin Skin exam: Present warm and dry Medical Decision Making <Sen Petty MD - Last Filed: 04/22/25 15:19> Medical Records Screening: Per USPSTF and CDC recommendations, given the prevalence of disease in our region, it is our hospital?s policy to screen for HIV and viral Hepatitis for all patients aged 18 and over and those with ongoing risk factors. Eliel Inquiry Pt receiving controlled substance: No Vital Signs: 04/22/25 14:22 04/22/25 14:30 04/22/25 15:00 Temperature 98.7 F Temperature Source Oral Pulse Rate 112 H 57 L Pulse Rate [Left] 113 H Respiratory Rate 23 18 13 Blood Pressure 121/57 L Blood Pressure [Right Arm] 108/72 L Blood Pressure Mean 78 Blood Pressure Mean [Right Arm] 84 Blood Pressure Source [Right Arm] Automatic Cuff 02 Sat by Pulse Oximetry 95 93 L 94 L Oxygen Delivery Method Room Air Room Air Room Air 04/22/25 16:00 04/22/25 16:31 04/22/25 17:00 Temperature Temperature Source Pulse Rate 57 L 50 L 54 L Pulse Rate [Left] Respiratory Rate 15 15 10 L Blood Pressure 134/69 131/72 143/98 H Blood Pressure [Right Arm] Blood Pressure Mean 93 91 Blood Pressure Mean [Right Arm] Blood Pressure Source [Right Arm] 02 Sat by Pulse Oximetry 95 95 97 Oxygen Delivery Method Room Air Room Air 04/22/25 17:30 04/22/25 17:45 04/22/25 18:33 Temperature 98.2 F Temperature Source Pulse Rate 89 51 L 80 Pulse Rate [Left] Respiratory Rate 14 16 20 Blood Pressure 141/76 H 148/68 H Blood Pressure [Right Arm] Blood Pressure Mean 109 Blood Pressure Mean [Right Arm] Blood Pressure Source [Right Arm] 02 Sat by Pulse Oximetry 96 98 Oxygen Delivery Method Room Air Room Air Room Air Lab Data Lab Results 04/22/25 14:25: WBC 5.3, RBC 4.80, Hgb 14.9, Hct 47.1, MCV 98.1 H, MCH 31.0, MCHC 31.6 L, RDW 12.6, Plt Count 243, MPV 9.0, Neut % (Auto) 67.9, Lymph % (Auto) 25.5, Clayton % (Auto) 4.5, Eos % (Auto) 1.5, Baso % (Auto) 0.2, Neut # (Auto) 3.6, Lymph # (Auto) 1.4, Clayton # (Auto) 0.2, Eos # (Auto) 0.1, Baso # (Auto) 0.0, Sodium 143, Potassium 3.7, Chloride 105, Carbon Dioxide 33 H, Anion Gap 8.7, BUN 10, Creatinine 0.90, Estimated Creat Clear 78, Estimated GFR 82, Est GFR ( Amer) 99, Glucose 149 H, Calcium 9.7, Magnesium 2.2, Total Bilirubin 0.9, AST 27, ALT 19, Alkaline Phosphatase 89, Troponin I < 0.01, NT-Pro-B Natriuret Pep 372, Total Protein 6.9, Albumin 4.4, Globulin 2.5, Albumin/Globulin Ratio 1.8, TSH 1.20, Free T4 1.29 04/22/25 14:46: VBG pH 7.36, VBG pCO2 49.9, VBG pO2 54.5 H, VBG HCO3 27.6, VBG Total CO2 29.1 H, VBG O2 Saturation 88.2 H, VBG Base Excess 2.1, VBG Lactic Acid 1.3 04/22/25 17:16: Troponin I < 0.01 04/22/25 14:25 04/22/25 14:25 Orders (Tests/Meds): ED MEDICATIONS Discontinued Medications Generic Name Dose Route Start Last Admin Trade Name Nathan PRN Reason Stop Dose Admin Iopamidol 70 ml 04/22/25 15:13 04/22/25 15:13 Iopamidol-370 (76%);100ml Bottle IV 04/22/25 15:14 70 ml ONCE ONE Administration Sodium Chloride 50 ml 04/22/25 15:13 04/22/25 15:13 0.9 % Sodium Chloride 50 Ml Vial IV 04/22/25 15:14 50 ml ONCE ONE Administration Sodium Chloride 10 ml 04/22/25 15:13 04/22/25 15:13 Sodium Chloride 0.9% 10ml Syr (Rad Only) IV 04/22/25 15:14 10 ml ONCE ONE Administration ORDERS Category Date Time Status CT angio chest PE protocol Stat Cat Scan 04/22/25 14:46 Completed BNP [NT Pro Brain Natriuretic Pep.] Stat Lab 04/22/25 14:25 Completed CBC w/Auto Diff [Complete Blood Count Auto Diff] Stat Lab 04/22/25 14:25 Completed CMP [Comprehensive Metabolic Panel] Stat Lab 04/22/25 14:25 Completed Free T4 (Free Thyroxine) Stat Lab 04/22/25 14:25 Completed Magnesium Stat Lab 04/22/25 14:25 Completed TSH [Thyroid Stimulating Hormone] Stat Lab 04/22/25 14:25 Completed Troponin I Q3H Lab 04/22/25 17:16 Completed Troponin I Stat Lab 04/22/25 14:25 Completed Blood Culture Stat Micro 04/22/25 15:38 Received VBG [Venous Blood Gas] Stat RT 04/22/25 14:46 Completed CA arterial duplex UE RT Stat Y 04/22/25 14:46 Completed CA venous doppler UE RT Stat Y 04/22/25 14:46 Completed Medical Decision Narrative: Mino Hsu is a 79Y male with a past medical history of coronary artery disease, hypertension, A-fib on Xarelto, COPD, HFrEF who presents to the emergency department for concern of pain and swelling and bruising in his right arm status post cardiac cath as well as shortness of breath with cough. Patient states that at the end of March, he underwent heart catheterization and stenting as well as stenting of his lower extremities. He states that shortly after being discharged, he was also diagnosed with bronchitis and pneumonia and finished antibiotics on Friday. Since then, he has also developed a mildly productive cough and shortness of breath and believes his pneumonia might be coming back. Over the last few days, he reports worsening bruising and swelling to his right distal forearm on the volar aspect. He states that he feels some decreased field talent qualification specialist strength on the right. On arrival, patient is tachycardic with a heart rate of 112 bpm. Afebrile. Appropriate oxygen saturation on room air. Physical exam, stated above, reveals an overall well-appearing male in no distress. He has some mild bruising and swelling to the right distal volar forearm. 2+ radial pulse. 5 out of 5 field talent qualification specialist strength and sensation to that extremity. Ulnar pulse is also intact. Cardiopulmonary exam revealed tachycardia but no murmurs, wheezing rales or rhonchi. Differential diagnosis includes, but is not limited to: Pneumonia, pulmonary embolism, sepsis, pseudoaneurysm, DVT, ACS, cardiac arrhythmia, metabolic derangement, electrolyte derangement, among others the most morbid conditions were considered and workup was based on these. Workup in the emergency room included: Right upper extremity arterial duplex ultrasound, venous duplex ultrasound right upper extremity, EKG, CTA chest pulmonary embolism protocol, CBC, CMP, free T4, TSH, magnesium level, BNP, troponin, blood culture x 2, VBG with lactate EKG demonstrated A-fib with RVR with a ventricular rate of 105 bpm. QTc normal at 408. At this time, patient's care was transferred to the oncoming physician, Dr. Davila, pending completion of his workup. <Arlin Davila, DO - Last Filed: 04/23/25 02:11> Vital Signs: 04/22/25 14:22 04/22/25 14:30 04/22/25 15:00 Temperature 98.7 F Temperature Source Oral Pulse Rate 112 H 57 L Pulse Rate [Left] 113 H Respiratory Rate 23 18 13 Blood Pressure 121/57 L Blood Pressure [Right Arm] 108/72 L Blood Pressure Mean 78 Blood Pressure Mean [Right Arm] 84 Blood Pressure Source [Right Arm] Automatic Cuff 02 Sat by Pulse Oximetry 95 93 L 94 L Oxygen Delivery Method Room Air Room Air Room Air 04/22/25 16:00 04/22/25 16:31 04/22/25 17:00 Temperature Temperature Source Pulse Rate 57 L 50 L 54 L Pulse Rate [Left] Respiratory Rate 15 15 10 L Blood Pressure 134/69 131/72 143/98 H Blood Pressure [Right Arm] Blood Pressure Mean 93 91 Blood Pressure Mean [Right Arm] Blood Pressure Source [Right Arm] 02 Sat by Pulse Oximetry 95 95 97 Oxygen Delivery Method Room Air Room Air 04/22/25 17:30 04/22/25 17:45 04/22/25 18:33 Temperature 98.2 F Temperature Source Pulse Rate 89 51 L 80 Pulse Rate [Left] Respiratory Rate 14 16 20 Blood Pressure 141/76 H 148/68 H Blood Pressure [Right Arm] Blood Pressure Mean 109 Blood Pressure Mean [Right Arm] Blood Pressure Source [Right Arm] 02 Sat by Pulse Oximetry 96 98 Oxygen Delivery Method Room Air Room Air Room Air Lab Data Lab results reviewed: Yes I reviewed the patient's lab results. Lab Results 04/22/25 14:25: WBC 5.3, RBC 4.80, Hgb 14.9, Hct 47.1, MCV 98.1 H, MCH 31.0, MCHC 31.6 L, RDW 12.6, Plt Count 243, MPV 9.0, Neut % (Auto) 67.9, Lymph % (Auto) 25.5, Clayton % (Auto) 4.5, Eos % (Auto) 1.5, Baso % (Auto) 0.2, Neut # (Auto) 3.6, Lymph # (Auto) 1.4, Clayton # (Auto) 0.2, Eos # (Auto) 0.1, Baso # (Auto) 0.0, Sodium 143, Potassium 3.7, Chloride 105, Carbon Dioxide 33 H, Anion Gap 8.7, BUN 10, Creatinine 0.90, Estimated Creat Clear 78, Estimated GFR 82, Est GFR ( Amer) 99, Glucose 149 H, Calcium 9.7, Magnesium 2.2, Total Bilirubin 0.9, AST 27, ALT 19, Alkaline Phosphatase 89, Troponin I < 0.01, NT-Pro-B Natriuret Pep 372, Total Protein 6.9, Albumin 4.4, Globulin 2.5, Albumin/Globulin Ratio 1.8, TSH 1.20, Free T4 1.29 04/22/25 14:46: VBG pH 7.36, VBG pCO2 49.9, VBG pO2 54.5 H, VBG HCO3 27.6, VBG Total CO2 29.1 H, VBG O2 Saturation 88.2 H, VBG Base Excess 2.1, VBG Lactic Acid 1.3 04/22/25 17:16: Troponin I < 0.01 Orders (Tests/Meds): ED MEDICATIONS Discontinued Medications Generic Name Dose Route Start Last Admin Trade Name Freq PRN Reason Stop Dose Admin Iopamidol 70 ml 04/22/25 15:13 04/22/25 15:13 Iopamidol-370 (76%);100ml Bottle IV 04/22/25 15:14 70 ml ONCE ONE Administration Sodium Chloride 50 ml 04/22/25 15:13 04/22/25 15:13 0.9 % Sodium Chloride 50 Ml Vial IV 04/22/25 15:14 50 ml ONCE ONE Administration Sodium Chloride 10 ml 04/22/25 15:13 04/22/25 15:13 Sodium Chloride 0.9% 10ml Syr (Rad Only) IV 04/22/25 15:14 10 ml ONCE ONE Administration ORDERS Category Date Time Status CT angio chest PE protocol Stat Cat Scan 04/22/25 14:46 Completed BNP [NT Pro Brain Natriuretic Pep.] Stat Lab 04/22/25 14:25 Completed CBC w/Auto Diff [Complete Blood Count Auto Diff] Stat Lab 04/22/25 14:25 Completed CMP [Comprehensive Metabolic Panel] Stat Lab 04/22/25 14:25 Completed Free T4 (Free Thyroxine) Stat Lab 04/22/25 14:25 Completed Magnesium Stat Lab 04/22/25 14:25 Completed TSH [Thyroid Stimulating Hormone] Stat Lab 04/22/25 14:25 Completed Troponin I Q3H Lab 04/22/25 17:16 Completed Troponin I Stat Lab 04/22/25 14:25 Completed Blood Culture Stat Micro 04/22/25 15:38 Received VBG [Venous Blood Gas] Stat RT 04/22/25 14:46 Completed CA arterial duplex UE RT Stat Y 04/22/25 14:46 Completed CA venous doppler UE RT Stat Y 04/22/25 14:46 Completed Medical Decision Narrative: Mino Hsu is a 79Y male with a past medical history of coronary artery disease, hypertension, A-fib on Xarelto, COPD, HFrEF who presents to the emergency department for concern of pain and swelling and bruising in his right arm status post cardiac cath as well as shortness of breath with cough. Patient states that at the end of March, he underwent heart catheterization and stenting as well as stenting of his lower extremities. He states that shortly after being discharged, he was also diagnosed with bronchitis and pneumonia and finished antibiotics on Friday. Since then, he has also developed a mildly productive cough and shortness of breath and believes his pneumonia might be coming back. Over the last few days, he reports worsening bruising and swelling to his right distal forearm on the volar aspect. He states that he feels some decreased field talent qualification specialist strength on the right. On arrival, patient is tachycardic with a heart rate of 112 bpm. Afebrile. Appropriate oxygen saturation on room air. Physical exam, stated above, reveals an overall well-appearing male in no distress. He has some mild bruising and swelling to the right distal volar forearm. 2+ radial pulse. 5 out of 5 field talent qualification specialist strength and sensation to that extremity. Ulnar pulse is also intact. Cardiopulmonary exam revealed tachycardia but no murmurs, wheezing rales or rhonchi. Differential diagnosis includes, but is not limited to: Pneumonia, pulmonary embolism, sepsis, pseudoaneurysm, DVT, ACS, cardiac arrhythmia, metabolic derangement, electrolyte derangement, among others the most morbid conditions were considered and workup was based on these. Workup in the emergency room included: Right upper extremity arterial duplex ultrasound, venous duplex ultrasound right upper extremity, EKG, CTA chest pulmonary embolism protocol, CBC, CMP, free T4, TSH, magnesium level, BNP, troponin, blood culture x 2, VBG with lactate EKG demonstrated A-fib with RVR with a ventricular rate of 105 bpm. QTc normal at 408. At this time, patient's care was transferred to the oncoming physician, Dr. Davila, pending completion of his workup. Arlin Davila, DO I assumed care at 1500 Patient's labs were reviewed and interpreted by myself, CBC showed no leukocytosis, hemoglobin was stable. VBG was unremarkable. CMP was unremarkable. Magnesium normal. Initial troponin less than 0.01, second troponin less than 0.01. Thyroid studies unremarkable. CT PE was reviewed and interpreted by myself and showed no acute pathology, venous ultrasound and arterial ultrasound was negative. At this time given patient's unremarkable workup I felt that patient was appropriate for discharge home. Return precautions were discussed. Critical Care <Sen Petty MD - Last Filed: 04/22/25 15:19> Critical Care Time Critical Care Time: No
[2025-04-22 15:00] LABS: Hematocrit 47.1 % (42.0-52.0); Hemoglobin 14.9 g/dL (14.1-18.0); Immature Granulocytes % 0.4 %; Mean Corpuscular HGB Conc 31.6 g/dL (31.8-35.4); Mean Corpuscular Hemoglobin 31.0 pg (27.0-31.2); Mean Corpuscular Volume 98.1 fl (80-94); Nucleated Red Blood Cells % 0 %; Platelet Count 243 K/mm3 (142-424); Red Blood Count 4.80 M/mm3 (4.60-6.20); Red Cell Distribution Width-SD 45.5 fL; White Blood Count 5.3 K/mm3 (4.8-10.8)
[2025-04-22 15:03] LABS: Alanine Aminotransferase 19 U/L (12-78); Albumin Level 4.4 g/dl (3.5-5.0); Albumin/Globulin Ratio 1.8 (1.1-1.8); Alkaline Phosphatase 89 U/L (38-126); Anion Gap 8.7 mEq/L (5-15); Aspartate Amino Transferase 27 U/L (17-59); Bilirubin,Total 0.9 mg/dl (0.2-1.3); Blood Urea Nitrogen 10 mg/dl (9-20); Calcium 9.7 mg/dl (8.4-10.2); Carbon Dioxide 33 mmol/L (22.0-30.0); Chloride 105 mmol/L (98-107); Creatinine Clearance Estimated 78 mL/min (50-200); Creatinine,Serum 0.90 mg/dl (0.66-1.25); Estimated Glomerular Filt Rate 82 ml/min (>60); GFR (African American) 99 ML/MIN (>60); Globulin 2.5 g/dL (1.3-3.2); Glucose 149 mg/dl (74-100); Magnesium 2.2 mg/dl (1.6-2.3); Potassium 3.7 mmoL/L (3.5-5.1); Sodium 143 mmol/L (136-145); Total Protein,Serum 6.9 g/dl (6.3-8.2)
[2025-04-22] MEDS: IOPAMIDOL-370 (76%);100ML BOTTLE 70 ML IV (15:13)
[2025-04-22] MEDS: SODIUM CHLORIDE 0.9% 10ML SYR (RAD ONLY) 10 ML IV (15:13)
[2025-04-22] MEDS: 0.9 % SODIUM CHLORIDE 50 ML VIAL IV (15:13)
[2025-04-22 15:16] LABS: NT Pro Brain Natriuretic Pep. 372 pg/mL (0-450)
[2025-04-22 15:20] LABS: Troponin I < 0.01 ng/ml (0.00-0.034)
[2025-04-22 15:29] LABS: Free T4 (Free Thyroxine) 1.29 ng/dl (0.78-2.19)
[2025-04-22 15:43] LABS: Thyroid Stimulating Hormone 1.20 uIU/mL (0.465-4.68)
[2025-04-22 15:50] LABS: Lactate Venous 1.3 mmol/L (0.4-2.0); VBG HCO3 27.6 mmol/L (23-30); VBG PCO2 49.9 mmol/L (35-51); VBG PH 7.36 mmol/L (7.31-7.41); VBG PO2 54.5 mmol/L (28-40)
[2025-04-22 17:54] LABS: Troponin I < 0.01 ng/ml (0.00-0.034)
== END 2025-04-22 18:34 | disposition home or self-care (01) ==
PROVIDERS: Emergency Provider Student in an Organized Health Care Education/Training Program; PCP Family Medicine
DX: R22.31 Localized swelling, mass and lump, right upper limb (principal); J44.9 Chronic obstructive pulmonary disease, unspecified; F17.210 Nicotine dependence, cigarettes, uncomplicated; I11.0 Hypertensive heart disease with heart failure; I50.20 Unspecified systolic (congestive) heart failure; Z86.79 Personal history of other diseases of the circulatory system; I73.9 Peripheral vascular disease, unspecified
CPT/HCPCS: 71275; 80053; 82803; 83735; 83880; 84439; 84443; 84484; 85025; 87040; 93005; 93931; 93971; 99285; Q9967

== ENCOUNTER 2025-07-12 14:13 | Emergency (ER) | payer MEDICARE, BC, SELFPAY ==
--- OUTSIDE RECORDS SUMMARY | 2025-06-13 15:00 | XMS_ITS | Encounter Summary ---
Author Organization [facility] Address [address] [place] [address] Care Team Providers Care Patient Service Rep Name Role Phone Cheko Heredia MD Primary Care Provider + Reason for Visit * Reason Comments Follow-up Diabetes chronic pain syndrome Encounter Details Date Type Department Care Team (Late st Contact Info) Description 06/13/2025 3:00 PM EDT Office Visit [facility] [address] [place] [address] Cheko Heredia MD [address] [place] [address] Type 2 diabetes mellitus without complication, without long-term current use of insulin (Primary Dx); Chronic pain syndrome; Spondylosis of lumbar region without myelopathy or radiculopathy; Anxiety about health; Lumbar paraspinal muscle spasm; Paroxysmal atrial fibrillation Social History Tobacco Use Types Packs/Day Years [...] Industry Job Start Date Job End Date [employer] Not on file Not on file Not on file documented as of this encounter Last Filed Vital Signs Vital Sign Reading Time Taken Comments Blood Pressure 118/65 06/13/2025 3:00 PM EDT Pulse 91 06/13/2025 3:00 PM EDT Temperature 36.2 C (97.1 F) 06/13/2025 3:00 PM EDT Respiratory Rate 20 06/13/2025 3:00 PM EDT Oxygen Saturation 95% 06/13/2025 3:00 PM EDT Inhaled Oxygen Concentration - - Weight 91.9 kg (202 lb 9.6 oz) 06/13/2025 3:00 P M EDT Height 180.3 cm (5' 11 ) 06/13/2025 3:00 PM EDT Body Mass Index 28.26 06/13/2025 3:00 PM EDT documented in this encounter Progress Notes * Cheko Heredia MD - 06/13/2025 3:00 PM EDT Chief Complaint Patient presents with Follow-up Diabetes chronic pain syndrome Subjective Mino Hsu is a 79 y.o. who presents for chronic care. Diabetes. He is not monitoring blood sugars. He takes Jardiance 10 mg as prescribed. Chronic spinal pain. Patient reports an increase in pain recently brought on by playing with a 3-year-old child of a family friend. He describes pain in the right low back. Chronic pain essentially remains unchanged with pain made more tolerable to allow for ADLs with use of Percocet. He is scheduled for a an epidural steroid injection on June 15. Atrial fibrillation. Patient will be having a Watchman device implanted in July at [facility]. The following portions of the patient's history were reviewed and updated as appropriate: allergies, current medications, past family history, past medical history, past social history, past surgicalhistory, and problem list. Review of Systems Objective Vital Signs: BP 118/65 Pulse 91 Temp 97.1 ??F (36.2 ??C) Resp 20 Ht 180.3 cm (71 ) Wt 91.9 kg (202 lb 9.6 oz) SpO2 95% BMI 28.26 kg/m?? Physical Exam Vitals reviewed. Constitutional: Appearance: Normal appearance. Cardiovascular: Rate and Rhythm: Normal rate and regular rhythm. Pulses: Normal pulses. Heart sounds: Normal heart sounds. Pulmonary: Effort: Pulmonary effort is normal. Comments: Breath sounds are distant Neurological: Mental Status: He is alert. Result Review The following data was reviewed by: Cheko Heredia MD on 06/13/2025: Data reviewed : [facility] Labs 04/22/25--Normal TSH, Nomral Creatinine Assessment and Plan Diagnoses and all orders for this visit: 1. Type 2 diabetes mellitus without complication, without long-term current use of insulin (Primary) - POC Glycosylated Hemoglobin (Hb A1C) - Jardiance 10 MG tablet tablet; Take 1 tablet by mouth Daily. Dispense: 30 tablet; Refill: 11 2. Chronic pain syndrome - oxyCODONE-acetaminophen (PERCOCET) 5-325 MG per tablet; Take 1 tablet by mouth Every 8 (Eight) Hours As Needed for Severe Pain. Dispense: 90 tablet; Refill: 0 3. Spondylosis of lumbar region without myelopathy or radiculopathy - oxyCODONE-acetaminophen (PERCOCET) 5-325 MG per tablet; Take 1 tablet by mouth Every 8 (Eight) Hours As Needed for Severe Pain. Dispense: 90 tablet; Refill: 0 4. Anxiety about health - diazePAM (VALIUM) 5 MG tablet; Take 1 tablet by mouth Every 12 (Twelve) Hours As Needed for Anxiety. Dispense: 60 tablet; Refill: 2 5. Lumbar paraspinal muscle spasm - cyclobenzaprine (FLEXERIL) 5 MG tablet; Take 1 tablet by mouth 3 (Three) Times a Day As Needed for Muscle Spasms. Dispense: 30 tablet; Refill: 0 6. Paroxysmal atrial fibrillation Plan 1. Diabetes mellitus. Condition is stable and controlled. Continue Jardiance 10 mg 2. Chronic spinal pain. Overall stable although recent aggravation from pulled muscle in the back. Continue Percocet 5 every 8 hours as needed for pain. Given limited supply of cyclobenzaprine. 3. Paroxysmal atrial fibrillation. Follow-up at [facility] for implantation of Watchman device. Follow Up Return in about 3 months (around 09/12/2025) for Next scheduled follow up. Patient was given instructions and counseling regarding his condition or for health maintenance advice. Please see specific information pulled into the AVS if appropriate. documented in this encounter Plan of Treatment Upcoming Encounters Date Type Department Care Team (Late st Contact Info) Description 09/12/2025 3:00 PM EST Office Visit [facility] [address] [place] [address] Cheko Heredia MD [address] [address] 12/12/2025 2:15 PM EDT Office Visit [facility] [address] [place] [address] Cheko Heredia MD [address] [place] [address] Scheduled Procedures Name Priority Associated Diagnoses Date/Ti me ABLATION A-FIB Atrial fibrillation with RVR Cardiomyopathy, dilated, nonischemic Essential hypertension documented as of this encounter Procedures Procedure Name Priority Date/Time Associated Diagnosis Comments POCT GLYCOSYLATED HEMOGLOBIN (HGB A1C) Routine 06/13/2025 3:12 PM EDT Type 2 diabetes mellitus without complication, without long-term current use of insulin documented in this encounter Results * (ABNORMAL) POC Glycosylated Hemoglobin (Hb A1C) (06/13/2025 3:12 PM EDT) Hemoglobin A1C 6.1(A) 4.5 - 5.7 % [facility] Lot Number [id number] [facility] Expiration Date 12/16/2026 [facility] Blood 06/13/2025 3:12 PM EDT us Cheko Heredia MD POINT OF CARE TEST ORDER ZORAIDA Final Result [facility]
[address] [place] [address], documented in this encounter Visit Diagnoses Diagnosis Type 2 diabetes mellitus without complication, without long-term current use of insulin- Primary Chronic pain syndrome Spondylosis of lumbar region without myelopathy or radiculopathy Anxiety about health Lumbar paraspinal muscle spasm Other symptoms referable to back Paroxysmal atrial fibrillation Atrial fibrillation documented in this encounter Care Teams Patient Service Rep Relationship Specialty Start Date End Date Cheko Heredia MD [address] [place] [address] PCP - General Family Medicine 01/10/22 documented as of this encounter
--- OUTSIDE RECORDS SUMMARY | 2025-06-16 16:09 | XMS_ITS | Encounter Summary ---
Author Organization [place] [address] Care Team Providers Care Breakfast Host Name Role Phone Unavailable Primary Care Provider Unavailabl e Reason for Referral * Holter Monitor (Routine) - Authorization Not Needed Specialty Diagnoses / Procedures Referred By Contac t Referred To Contact Radiology Diagnoses Paroxysmal atrial fibrillation (HCC) Atrial fibrillation with rapid ventricular response (HCC) Cardiomyopathy, dilated, nonischemic (HCC) Procedures EV MOBILE CARDIAC TELEMETRY Edis Garza MD [address] [place] [address] Phone: tel: fax: Referral ID Status Reason Start Date Expiration Date Visits Requested Visits Authorized [id number] Authorization Not Needed 06/16/2025 06/16/2027 1 1 Reason for Visit * Holter Monitor (Routine) - Authorization Not Needed Specialty Diagnoses / Procedures Referred By Contac t Referred To Contact Radiology Diagnoses Paroxysmal atrial fibrillation (HCC) Atrial fibrillation with rapid ventricular response (HCC) Cardiomyopathy, dilated, nonischemic (HCC) Procedures EV MOBILE CARDIAC TELEMETRY Edis Garza MD [address] [place] [address] Phone: tel: fax: Referral ID Status Reason Start Date Expiration Date Visits Requested Visits Authorized [id number] Authorization Not Needed 06/16/2025 06/16/2027 1 1 Encounter Details Date Type Department Care Team (Latest Contact Info) Description 06/16/2025 4:09 PM EDT - 06/16/2025 11:59 PM EDT Hospital Encounter [facility] [address] [place] [address] Edis Garza MD [address] [facility] [place] [id number] Paroxysmal atrial fibrillation (HCC); Atrial fibrillation with rapid ventricular response (HCC); Cardiomyopathy, dilated, nonischemic (HCC) Discharge Disposition: Home or Self Care Social History Tobacco Use Types Packs/Day Years Used Date Smoking Tobacco: Every Day Cigarettes Smokeless Tobacco: Never Alcohol Use Standard Drinks/Week Comments Not Currently 0 (1 standard drink = 0.6 oz pur e alcohol) Sexually Active Control Partners Comments Not Currently Female Sex and Gender Information Value Date Recorded Sex Assigned at Not on file Legal Sex Male 1:03 AM EDT Gender Identity Not on file Sexual Orientation Not on file documented as of this encounter Medications at Time of Discharge albuterol (PROVENTIL HFA;VENTOLIN HFA) 90 mcg/actuation Inhl HFA Aerosol Inhaler Inhale 2 Puffs into the lungs every 6 hours as needed for Wheezing. amiodarone (PACERONE) 200 mg Oral Tablet Take 0.5 Tablets by mouth daily. 09/28/2024 atorvastatin (LIPITOR) 10 mg Oral Tablet Take 10 mg by mouth daily. 02/13/2022 bumetanide (BUMEX) 1 mg Oral Tablet Take 1 mg by mouth daily. 07/18/2021 Cholecalciferol, Vitamin D3, (VITAMIN D3) 25 mcg (1,000 unit) Oral Capsule Take 1 Capsule by mouth daily. CREON 36,000-114,000- 180,000 unit Oral Capsule, Delayed Release(E.C.) 03/29/2025 cyclobenzaprine (FLEXERIL) 10 mg Oral Tablet Take 10 mg by mouth 2 times daily as needed for Muscle spasms. diazePAM (VALIUM) 5 mg Oral TabletIndications :anxiety Take 5 mg by mouth 3 times daily as needed for Anxiety. Indications: anxious docusate sodium (COLACE) 100 mg Oral Capsule Take 100 mg by mouth 2 times daily. DULoxetine (CYMBALTA) 60 mg Oral Capsule, Delayed Release(E.C.) Take 60 mg by mouth daily. 06/20/2022 fish oil OTC (OMEGA-3 DHA-EPA 300 MG) 300-1,000 mg Oral Capsule, Delayed Release(E.C.) Take 2 g by mouth daily. FLUoxetine (PROZAC) 20 mg Oral Capsule Take by mouth daily. JARDIANCE 10 mg Oral Tablet Take 10 mg by mouth daily. 09/17/2024 MOVANTIK 12.5 mg Oral Tablet 03/29/2025 nitroGLYCERIN (NITROSTAT) 0.4 mg SL Tablet, Sublingual Place 0.4 mg under the tongue every 5 minutes as needed. for chest pain. Use up to 3 doses. If no relief, go to ER. 03/28/2025 oxyCODONE-acetami nophen (PERCOCET) 5-325 mg Oral TabletIndications :pain Take 1 Tablet by mouth 3 times daily as needed for Chronic Pain (G89.29). Indications: pain pantoprazole (PROTONIX) 40 mg Oral Tablet, Delayed Release (E.C.) Take 1 Tablet by mouth daily. 30 Tablet 2 08/08/2021 ranolazine (RANEXA) 500 mg Oral Tablet Sustained Release 12 hr Take 500 mg by mouth 2 times daily. 06/28/2022 tamsulosin (FLOMAX) 0.4 mg Oral Capsule Take 0.4 mg by mouth nightly. 07/16/2021 tiotropium (SPIRIVA) 18 mcg Inhl Capsule, w/Inhalation Device Inhale 18 mcg into the lungs daily. UNABLE TO FIND Take 1 Tablet by mouth daily. Prevagen XARELTO 20 mg Oral Tablet TAKE 1 TABLET BY MOUTH DAILY WITH DINNER 06/26/2021 documented as of this encounter Discharge Disposition Disposition Code Departure Means Destination Home or Self Care documented in this encounter Plan of Treatment Upcoming Encounters Date Type Department Care Team (Latest Contact Info) Description 07/25/2025 11:30 AM [facility] Hospital Encounter [employer] [address] [facility] [place] [id number] Edis Garza MD [address] [facility] [place] [id number] Persistent atrial fibrillation (HCC) 07/25/2025 11:30 AM EST - 07/25/2025 1:00 PM EST Surgery [employer] [address] [facility] [address] [place] [address] Edis Garza MD [address] [facility] [place] [phone] LEFT ATRIAL APPENDAGE CLOSURE (WATCHMAN) Pending Results Name Type Priority Associated Diagnoses Date /Time EV MOBILE CARDIAC TELEMETRY Imaging Cardiology Routine Paroxysmal atrial fibrillation (HCC) Atrial fibrillation with rapid ventricular response (HCC) Cardiomyopathy, dilated, nonischemic (HCC) 06/16/2025 4:12 PM EDT Scheduled Orders Name Type Priority Associated Diagnoses Orde r Schedule EV MOBILE CARDIAC TELEMETRY Imaging Cardiology Routine Paroxysmal atrial fibrillation (HCC) Atrial fibrillation with rapid ventricular response (HCC) Cardiomyopathy, dilated, nonischemic (HCC) 1 Occurrences starting 06/16/2025 until 06/16/2025 documented as of this encounter Visit Diagnoses Diagnosis Paroxysmal atrial fibrillation (HCC) Atrial fibrillation Atrial fibrillation with rapid ventricular response (HCC) Atrial fibrillation Cardiomyopathy, dilated, nonischemic (HCC) Other primary cardiomyopathies Persistent atrial fibrillation (HCC)- Primary Atrial fibrillation Persistent atrial fibrillation (HCC) Atrial fibrillation documented in this encounter Additional Health Concerns Assessment Noted Time A fall risk assessment has been complete d for the patient 09/28/2024 1:34 PM EST documented as of this encounter
[2025-07-12] VITALS (7 sets, daily range): BP systolic 104–183; BP diastolic 68–103; PULSE 62–92; RESP 18; TEMP 36.8; O2SAT 95–97; BMI 27.8
--- NOTE | 2025-07-12 14:26 | ED_ITS ---
<Statement entered by Antonio Omalley MD - 07/12/25 22:46> I was consulted by the LYNNETTE, and we discussed the complexity of the problems being addressed. I approved the treatment and management plan for this patient's care in the emergency department, thus performing a substantive portion of the medical decision making. Antonio Omalley MD, KIMBERLEY, FACEP Discharge Plan Disposition Patient Disposition: Home, Self-Care Condition: Good Prescriptions Prescriptions: New prednisone 50 mg tablet 50 mg PO DAILY 5 Days Qty: 5 0RF azithromycin 250 mg tablet 250 mg PO DAILY 5 Days Qty: 5 0RF Rx Instructions: For 250 mg dose pack: take 500 mg today (day 1), then 250 mg for 4 days (days 2-5) orally daily; No Action Movantik 12.5 mg tablet 12.5 mg PO DAILY Qty: 30 12RF Rx Instructions: must be taken on empty stomach; no food 1 hr after or 2-3 hrs before dose ranolazine 1,000 mg tablet extended release 12 hr 1,000 mg PO BID Qty: 180 2RF atorvastatin 10 mg tablet 10 mg PO HS Patient Comments: TAKE 1 TABLET BY MOUTH ONCE DAILY. oxycodone-acetaminophen 5-325 mg tablet 1 tab PO Q8HP PRN (Reason: Pain) Patient Comments: TAKE 1 TABLET BY MOUTH EVERY 8 HOURS NEEDED FOR SEVERE PAIN. tamsulosin 0.4 mg capsule 0.4 mg PO HS Patient Comments: TAKE ONE CAPSULE BY MOUTH EVERY NIGHT AT BEDTIME pantoprazole 40 mg tablet,delayed release (DR/EC) 40 mg PO DAILY Patient Comments: TAKE 1 TABLET BY MOUTH ONCE DAILY. albuterol sulfate 90 mcg/actuation HFA aerosol inhaler 2 puff INHALATION Q4HP PRN (Reason: Shortness Of Breath) Patient Comments: INHALE 2 PUFFS INTO THE LUNGS EVERY 4 HOURS NEEDED FOR WHEEZING. diazepam 5 mg tablet 5 mg PO Q12HP PRN (Reason: Anxiety) Patient Comments: TAKE 1 TABLET BY MOUTH EVERY 12 HOURS NEEDED FOR ANXIETY. duloxetine 60 mg capsule,delayed release(DR/EC) 60 mg PO DAILY Patient Comments: TAKE 1 CAPSULE BY MOUTH ONCE DAILY. Jardiance 10 mg tablet 10 mg PO DAILY Patient Comments: TAKE 1 TABLET BY MOUTH ONCE DAILY. Xarelto 15 mg tablet 15 mg PO DAILY Creon 36,000-114,000- 180,000 unit capsule,delayed release(DR/EC) 1 cap PO TIDWMEAL Rx Instructions: Please take 1 capsule at the beginning or with your meal and administer with meals and/or snacks lidocaine 5 % adhesive patch,medicated 1 patch topical DAILY Qty: 30 0RF Rx Instructions: leave on most painful area for up to 12 hrs Referrals Follow up/Referrals: Cheko Heredia MD [Primary Care Provider, Medical] - See instructions Activity Restrictions/Add. Instructions Additional Instructions/Restrictions: Thank you for allowing us to care for you. Fortunately the CT scans show no fracture or injury of the neck or head. Please continue to take Tylenol for pain. You are also being treated for COPD exacerbation. Please continue your inhalers at home. Take the Z-Demond and prednisone for 5 days as prescribed. As discussed, the CTA of your brain showed significant narrowing of the blood vessels that provide blood to your brain. It was recommended that you follow-up with neurosurgery about this. You may call their office to schedule an appointment. Their phone number is [phone]. 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 by RN): Pt tripped and fell on friday hitting his head and forehead on concrete/brick. Pt c/o headache and pain when he coughs in his chest, but only when he coughs. Pt does also c/o upper back/shoulder and neck pain when trying to move his head. Pt states he thinks he may have blacked out for a second after he fell, but remebers everything. 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 Patient reports a ground-level, mechanical fall that occurred 3 days ago on 07/09/25. Patient fell onto concrete and then hit his forehead on a brick fall. Since that time he has had intermittnet head pain and neck pain. He reports an abrasion to his right elbow and a bruise to his forehead. His headache has been easily managed with Tylenol. He denies low back pain but does report muscle pain on the left. He has not had abdominal pain or chest pain. Patient does report a cough that he has had for the last week, prior to the fall. He is concerned he could have pneumonia. He has COPD and has been taking his inhalers at home. He has not needed more frequent inhaler use. Related Data Home Medications ?Medication ?Instructions ?Recorded ?Confirmed albuterol sulfate 90 mcg/actuation 2 puff inhalation Q 4HP PRN 08/25/24 07/12/25 aerosol inhaler Shortness Of Breath atorvastatin 10 mg tablet 10 mg PO HS 08/25/24 5 diazepam 5 mg tablet 5 mg PO Q12HP PRN Anxiety 07/12/25 duloxetine 60 mg capsule,delayed 60 mg PO DAILY 07/12/25 release empagliflozin 10 mg tablet 10 mg PO DAILY 08/25/24 (Jardiance) oxycodone-acetaminophen 5 mg-325 1 tab PO Q8HP PRN Vidal n 08/25/24 07/12/25 mg tablet pantoprazole 40 mg tablet,delayed 40 mg PO DAILY 08/2507/12/25 release tamsulosin 0.4 mg capsule 0.4 mg PO HS 08/25/24 [id number] 1 cap PO TIDWMEAL 04/07/25 1 (pork)36,000-114,000-180k unit capsule,del rel (Creon) rivaroxaban 15 mg tablet (Xarelto) 15 mg PO DAILY 03/1607/12/25 Previous Rx's ?Medication ?Instructions ?Recorded lidocaine 5 % topical patch 1 patch topical DAILY #30 ea 03/11/25 ranolazine 1,000 mg 1,000 mg PO BID #180 tabs tablet,extended release,12 hr Movantik 12.5 mg tablet (naloxegol) 12.5 mg PO DAILY # 30 tabs 03/29/25 azithromycin 250 mg tablet 250 mg PO DAILY 5 days #5 t abs 07/12/25 prednisone 50 mg tablet 50 mg PO DAILY 5 days #5 tab s 07/12/25 Allergies Allergy/AdvReac Type Severity Reaction Status Date / Time Sulfa (Sulfonamide Allergy Unknown Unknown Verified 06/13/25 12:23 Antibiotics) allergy reaction [facility] Disclaimer: The information contained in this section may have been updated after the patient was seen, as this information can be updated by other users. Medical History Peripheral arterial disease Fever Cough Angina pectoris, unstable History of cardioversion HFrEF (heart failure with reduced ejection fraction) On amiodarone therapy Major depressive disorder Atypical angina COPD (chronic obstructive pulmonary disease) Dyspnea Fatigue Daytime somnolence Bilateral carotid artery stenosis Tobacco dependence syndrome Atrial fibrillation with RVR Atrial fibrillation HLD (hyperlipidemia) HTN (hypertension) Abnormal electrocardiography CAD (coronary artery disease) Surgical History History of banding of hemorrhoid History of colonoscopy History of esophagogastroduodenoscopy (EGD) History of cardiac radiofrequency ablation Family History Other Family history of cancer Family history of diabetes mellitus Social History Smoking Status: Current every day smoker tobacco type: cigarettes packs per day: 1 alcohol intake: never substance use type: denies use current occupational status: unemployed and retired Travel in the last 8 weeks?: Inside the [place] household members: none housing: house current occupational exposures/hazards: No Have you lived/traveled outside [place] in past 30 days?: No Contact w/someone who lives/traveled outside US past 30 days?: No Exposure to someone with infectious disease in past 14 days?: No Do you have a fever (greater than 100.4 F or 38 C)?: No Have you tested positive for COVID-19?: No Exposed to someone with COVID-19 in past 14 days?: No Do you have a sore throat?: No Do you have a cough?: Yes Do you have any weakness?: No Do you have any diarrhea?: No Are you experiencing any unusual bleeding?: No Do you have any muscle aches/pain?: Yes Do you have any abdominal pain?: No Are you experiencing loss of taste or smell?: No Other Medical History Have you received the Flu Vaccine for this season: No Have you received the Pneumonia Vaccine: Yes ROS Obtained: Yes Systems reviewed as appropriate & no additional complaints except as documented Physical Exam General General appearance: alert and in no apparent distress Comment: Well-appearing, no acute distress. Sitting comfortably on hospital stretcher. Head Head exam: normocephalic Expanded Head Exam Head exam physical: Present contusion (frontal contusion) Neck Neck exam: Present full ROM Respiratory Respiratory exam: Present normal lung sounds bilaterally; Absent respiratory distress Cardiovascular Cardiovascular exam: Present regular rate and normal rhythm Abdominal Exam Abdominal exam: Present soft; Absent distention or tenderness Neurological Exam Neurological exam: Present alert and oriented X3 Expanded Skin Exam Type of lesion: Present abrasion (right elbow) Medical Decision Making Medical Records Medical records reviewed: Yes I reviewed the patient's medical records. Screening: Per USPSTF and CDC recommendations, given the prevalence of disease in our region, it is our hospital?s policy to screen for HIV and viral Hepatitis for all patients aged 18 and over and those with ongoing risk factors. Eliel Inquiry Pt receiving controlled substance: No Vital Signs: 07/12/25 14:15 07/12/25 15:06 07/12/25 15:30 Temperature 98.2 F Temperature Source Temporal Artery Scan Pulse Rate 79 74 Pulse Rate [Right] 92 H Respiratory Rate 18 Blood Pressure 124/81 124/82 Blood Pressure [Right Arm] 104/68 L Blood Pressure Mean [Right Arm] 80 Blood Pressure Source [Right Arm] Automatic Cuff Blood Pressure Position [Right Arm] Sitting 02 Sat by Pulse Oximetry 96 96 95 Oxygen Delivery Method Room Air Room Air 07/12/25 16:01 07/12/25 16:30 07/12/25 17:00 Temperature Temperature Source Pulse Rate 67 64 62 Pulse Rate [Right] Respiratory Rate Blood Pressure 147/103 H 164/92 H 181/100 H Blood Pressure [Right Arm] Blood Pressure Mean [Right Arm] Blood Pressure Source [Right Arm] Blood Pressure Position [Right Arm] 02 Sat by Pulse Oximetry 96 95 97 Oxygen Delivery Method 07/12/25 18:31 Temperature 98.2 F Temperature Source Pulse Rate 62 Pulse Rate [Right] Respiratory Rate 18 Blood Pressure 183/92 H Blood Pressure [Right Arm] Blood Pressure Mean [Right Arm] Blood Pressure Source [Right Arm] Blood Pressure Position [Right Arm] 02 Sat by Pulse Oximetry Oxygen Delivery Method Lab Data Lab Results 07/12/25 15:15: WBC 5.5, RBC 4.55 L, Hgb 15.0, Hct 44.7, MCV 98.2 H, MCH 33.0 H, MCHC 33.6, RDW 13.3, Plt Count 171, MPV 8.8, Neut % (Auto) 63.9, Lymph % (Auto) 25.4, Spink % (Auto) 8.7, Eos % (Auto) 1.1, Baso % (Auto) 0.4, Neut # (Auto) 3.5, Lymph # (Auto) 1.4, Spink # (Auto) 0.5, Eos # (Auto) 0.1, Baso # (Auto) 0.0, S odium 135 L, Potassium 3.8, Chloride 101, Carbon Dioxide 31 H, Anion Gap 6.8, BUN 11, Creatinine 0.80, Estimated Creat Clear 78, Estimated GFR 93, Est GFR ( Amer) 113, Glucose 108 H, Calcium 8.6, Total Bilirubin 0.8, AST 22, ALT 19, Alkaline Phosphatase 79, Total Protein 6.5, Albumin 3.1 L, Globulin 3.4 H, A lbumin/Globulin Ratio 0.9 L, Lipase 28 07/12/25 15:15 07/12/25 15:15 Orders (Tests/Meds): ED MEDICATIONS Discontinued Medications Generic Name Dose Route Start Last Admin Trade Name Freq PRN Reason Stop Dose Admin Acetaminophen 1,000 mg 07/12/25 18:05 07/12/25 18:23 Acetaminophen 500mg Tab PO 07/12/25 18:06 1,000 mg ONCE ONE Administration Iopamidol 160 ml 07/12/25 15:51 07/12/25 15:52 Iopamidol-370 (76%);100ml Bottle IV 07/12/25 15:52 160 ml ONCE ONE Administration Sodium Chloride 10 ml 10/28/25 15:51 07/12/25 15:52 Sodium Chloride 0.9% 10ml Syr (Rad Only) IV 07/12/25 15:52 10 ml ONCE ONE Administration Sodium Chloride 100 ml 07/12/25 15:51 07/12/25 15:52 0.9 % Sodium Chloride 50 Ml Vial IV 07/12/25 15:52 100 ml ONCE ONE Administration ORDERS Category Date Time Status CT angio chest - dissection Stat Cat Scan 07/12/25 14:[address] angio head Stat Cat Scan 07/12/25 14:[address] angio neck Stat Cat Scan 07/12/25 14:[address] cervical spine wo con Stat Cat Scan 07/12/25 14:[address] head/brain wo con Stat Cat Scan 07/12/25 14:45 Completed CBC w/Auto Diff [Complete Blood Count Auto Diff] Stat Lab 07/12/25 15:15 Completed CMP [Comprehensive Metabolic Panel] Stat Lab 07/12/25 15:15 Completed Lipase Stat Lab 07/12/25 15:15 Completed Medical Decision Narrative: In summary, this is a 79-year-old male with a past medical history of multivessel CAD status post stenting to the RCA in 2002, paroxysmal atrial fibrillation status post numerous cardioversions and ablation in 2020 and on Xarelto, peripheral artery disease, HFrEF, major depressive disorder, COPD, hyperlipidemia, hypertension, who presents to the emergency department today for evaluation following a fall 3 days ago. Patient had a ground-level, mechanical fall and has had intermittent head pain and neck pain that improves with Tylenol. He has not had abdominal pain or chest pain but has had a cough over the last week. Patient reports this has been his only fall and reiterates this was a mechanical fall from tripping over uneven ground. On exam patient is well-appearing and in no acute distress. Vital signs are normal. He is sitting comfortably on hospital stretcher. Respiratory rate and effort are normal. Lungs are clear to auscultation bilaterally without adventitious sounds. There is an abrasion to the right elbow. There is a contusion to the forehead. Patient denies cervical spinal tenderness but does report pain with movement of the neck. There is no other spinal tenderness through the spine. No paraspinal muscle tenderness. No tenderness to palpation of the face or head. There is ecchymosis to the palm of his left hand from catching himself at time of fall. It is non-tender to palpation. There is no tenderness to palpation of the hands, forearm, elbow, humerus. No lower extremity tenderness or sign of injury. Differential diagnoses include but are not limited to contusion, abrasion, intracranial hemorrhage, skull fracture, neck fracture, muscle strain, pneumonia, bronchitis, COPD exacerbation, among others. We will obtain laboratory workup as well as noncontrasted CTs of the head and neck. We will also obtain CTA of the head, neck, and abdomen. 6:[address] of the head and neck showed no acute injury or abnormality. CTA of the neck shows severe stenotic disease including completely occluded right ICA, high-grade stenosis of the origin of the right vertebral artery and an occluded left vertebral artery. CTA chest shows no infiltrate, or PE. On reassessment, patient is feeling better. He is aware of his stenotic disease. He understands he takes his Xarelto to help prevent CVA but also understands his active decreased flow. He again denies any recent falls other than a mechanical fall he sustained on Friday. He has not felt lightheaded or dizzy. I discussed this significant stenotic disease with the patient. I recommended follow-up with [facility] and offered to [facility] Patient does not have interest in this at this time. I gave the patient the phone number for [facility] if he changes his mind. We will treat his COPD exacerbation given ongoing cough and worsening secretions for the last week. Prescriptions sent to the patient's pharmacy. He will follow-up with his primary care provider later this week if any symptoms are persistent. If symptoms worsen he will return to the emergency department. Patient understands return precautions. All questions have been answered at this time. He is appropriate for safe discharge home. Critical Care Critical Care Time Critical Care Time: No
--- NOTE | 2025-07-12 14:45 | CT_ITS ---
FINAL REPORT TECHNIQUE: Axial images were performed through the brain. This study was performed with techniques to keep radiation doses as low as reasonably achievable, (ALARA). Individualized dose reduction techniques using automated exposure control or adjustment of mA and/or kV according to the patient''s size were employed. CLINICAL HISTORY: fall, headstrike FINDINGS: There is mild atrophy. The ventricles are normal in size. There is no extra-axial fluid or midline shift. There is no evidence of acute hemorrhage, mass effect, or edema. The paranasal sinuses are well aerated. IMPRESSION: Atrophy. No acute intracranial process. Reviewed, Interpreted and Dictated by Min Castrejon MD Transcribed by Marilia Wilkerson Authenticated and . [facility]
--- NOTE | 2025-07-12 14:45 | CT_ITS ---
FINAL REPORT TECHNIQUE: Axial images were obtained of the cervical spine by computed tomography. Coronal and sagittal reconstruction process performed. This study was performed with techniques to keep radiation doses as low as reasonably achievable (ALARA). Individualized dose reduction techniques using automated exposure control or adjustment of mA and/or kV according to the patient''s size were employed. CLINICAL HISTORY: Fall on 07/09/25- neck pain since COMPARISON: None FINDINGS: There is moderate anterior osteophyte formation throughout the cervical spine. Moderate disc space narrowing is noted at C6-7. At C4-5 there is mild broad-based midline disc protrusion with mild spinal canal compromise. At C6-7 there is mild broad-based midline disc protrusion with endplate hypertrophy and moderate bilateral neural foraminal narrowing. IMPRESSION: Degenerative changes without acute bony abnormality of the cervical spine. Reviewed, Interpreted and Dictated by Min Castrejon MD Transcribed by Avani Nielson Authenticated and [facility]
--- OUTSIDE RECORDS SUMMARY | 2025-07-12 14:52 | XMS_ITS | Clinical Summary ---
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/08 Active 05/08 Lio Corcoran MD Abnormal grief reaction Hx of cardiac arrhythmias 169749196 (SNOMED CT) 05/08 Active 05/08 Lio Corcoran MD H/O: heart disorder Insomnia 165511195 (SNOMED CT) 05/08 Active 05/08 Lio Corcoran MD Insomnia Back pain 906317648 (SNOMED CT) 05/08 Active 05/08 Lio Corcoran MD Backache Fatigue 74135063 (SNOMED CT) 05/08 Active 05/08 Lio Corcoran MD Fatigue Depression / anxiety 761671942 (SNOMED CT) 05/08 Active 05/08 Lio Corcoran MD Mixed anxiety and depressive disorder Anticoagulati on 008757935 (SNOMED CT) 05/08 Active 05/08 Lio Corcoran MD Anticoagulant therapy Stented coronary artery 579533434 (SNOMED CT) 05/08 Active 05/08 Lio Corcoran MD Stented coronary artery Medications Medication Instructions Start Date Stop Date Generic Name NDC Provider MIRTAZAPINE 15 MG TABS Take 1 pill by mouh at bedtime MIRTAZAPINE [id number] Lio Corcoran MD MIRTAZAPINE 7.5 MG TABS take 1 tablet nightly by mouth MIRTAZAPINE 18548623276 Lio Corcoran MD CYMBALTA 30 MG ORAL CAPSULE DELAYED RELEASE PARTICLES TAKE 1 CAPSULE BY MOUTH EVERY NIGHT for 30 days and then stop it (we are weaning this medicine to start new medicine end of Oct) DULOXETINE HCL [id number] Lio Corcoran MD CYMBALTA 30 MG ORAL CAPSULE DELAYED RELEASE PARTICLES TAKE 1 CAPSULE BY MOUTH EVERY NIGHT for 30 days and then stop it (we are weaning this medicine to start new medicine end of Oct) DULOXETINE HCL [id number] Lio Corcoran MD CYMBALTA 30 MG ORAL CAPSULE DELAYED RELEASE PARTICLES TAKE 1 CAPSULE BY MOUTH EVERY NIGHT (weaning this medicine for 30 days to start new medicine) DULOXETINE HCL [id number] Lio Corcoran MD DULOXETINE HCL 60 MG CPEP TAKE 1 CAPSULE BY MOUTH EVERY NIGHT DULOXETINE HCL 86803357591 Lio Corcoran MD MIRTAZAPINE 7.5 MG TABS take 1 tablet nightly by mouth MIRTAZAPINE 50328585442 Lio Corcoran MD CENTRUM SILVER ADULT 50+ TABS TAKE 1 TABLET BY MOUTH EACH DAY MULTIPLE VITAMINS-LINK TRAINER MAINTENANCE MAN ALS 75262248105 Lio Corcoran MD FISH OIL 1000 MG CAPS TAKE 1 CAPSULE BY MOUTH 2 TIMES A DAY OMEGA-3 FATTY ACIDS [id number] Lio Corcoran MD PREVAGEN 10 MG CAPS APOAEQUORIN 54718745059 Lio Corcoran MD DIAZEPAM 5 MG TABS TAKE 1 TABLET BY MOUTH 3 TIMES A DAY NEEDED FOR ANXIETY DIAZEPAM [id number] Lio Corcoran MD OXYCODONE HCL 5 MG CAPS TAKE 1 BY MOUTH 3 TIMES A DAY OXYCODONE HCL 20568095310 Lio Corcoran MD SIMVASTATIN 20 MG TABS TAKE 1 TABLET BY MOUTH AT BEDTIME FOR CHOLESTEROL SIMVASTATIN 26585682669 Lio Corcoran MD XARELTO 20 MG TABS TAKE 1 TABLET BY MOUTH ONCE A DAY RIVAROXABAN [id number] Lio Corcoran MD OMEPRAZOLE 20 MG CPDR TAKE 1 CAPSULE BY MOUTH ONCE A DAY OMEPRAZOLE 41244228065 Lio Corcoran MD METOPROLOL SUCCINATE ER 25 MG [id number] TAKE 1 TABLET BY MOUTH ONCE A DAY METOPROLOL SUCCINATE [id number] Lio Corcoran MD TAMSULOSIN HCL 0.4 MG CAPS TAMSULOSIN HCL 39229724077 Lio Corcoran MD LISINOPRIL 10 MG TABS TAKE 1 TABLET BY MOUTH 1 TIME A DAY LISINOPRIL [id number] Lio Corcoran MD AMIODARONE HCL 200 MG TABS TAKE 1 TABLET BY MOUTH TWICE A DAY AMIODARONE HCL 13927431871 Lio Corcoran MD DULOXETINE HCL 60 MG CPEP TAKE 1 CAPSULE BY MOUTH EVERY NIGHT DULOXETINE HCL [id number] Lio Corcoran MD Medications Administered No information [...] in Blood ABS NEUTROPH 2947 CELLS/UL 10*3/uL 4816-9197 N Neutrophils [#/volume] in Blood MPV 9.5 fL 7.5-12.5 N Platelet dieter n volume [Entitic volume] in Blood by MarcusDanielle PLATELETK/UL 221 THOUSAND/UL 10*3/uL 140-400 N platelet [...] Procedures Code Procedure Name Date Entry Date Medicare Telehealth G202 Medicare Telehealth G202 Medicare Telehealth CPT-35351() Psychotherapy 45m -No [facility]() 05/10/05 G2025 Medicare [facility]-[id number] Medication Reconciliation CPT-3077F Most recent systolic blood pressure >=140 mm Hg CPT-3078F Most recent diastoli c blood pressure <80 mm Hg CPT-27512() Psychotherapy 45m -No [facility]() 20 03/09/10 CPT-41393() Psychotherapy 45m -No [facility]() 20 04/08/11 CPT-77100() Psychotherapy 60m Crises- No E&M() 202 CPT-49070() Psychotherapy 45m -No [facility]() 20 04/07/19 CPT-1159F Medication list docu mented in medical record [facility] 6399 T1 CBC with diff [facility] 75461 T1 CMP [facility] 30000 T2 Vitamin D 25 Hydroxy 2019 [facility] 44871 T1 TSH reflex to free T4 202 [facility] 927 T1 B12 [facility] 77233 T1 Lipid Panel [facility] 496 T1 HGBA1c [...]
--- OUTSIDE RECORDS SUMMARY | 2025-07-12 14:52 | XMS_ITS | Encounter Summary ---
Author Organization [place] [address] Care Team Providers Care Sleep Medicine Physician Name Role Phone Unavailable Primary Care Provider Unavailabl e Reason for Referral * Echo (Routine) - Authorization Not Needed Specialty Diagnoses / Procedures Referred By Contac t Referred To Contact Radiology Diagnoses Persistent atrial fibrillation (HCC) Procedures EC ECHOCARDIOGRAM TRANSESOPHAGEAL STRUCTURAL INTRAOPERATIVE Edis Garza MD [address] [id number] Phone: tel: fax: Referral ID Status Reason Start Date Expiration Date Visits Requested Visits Authorized [id number] Authorization Not Needed 06/25/2027 1 1 Encounter Details Date Type Department Care Team (Late st Contact Info) Description 06/24/2025 Orders Only Structural Hrt/Valve [address] [facility] [address] [place], [place] [id number] Renetta Conklin RN Persistent atrial fibrillation (HCC) (Primary Dx) Social History Tobacco Use Types [...] (Latest Contact Info) Description 07/25/2025 11:30 AM EST Hospital Encounter EDG STATIONARY BOILER FIREMAN [facility] [place] [address] Edis Garza MD [address] [place] [address] [place] [id number] Persistent atrial fibrillation (HCC) 07/25/2025 11:30 AM EST - 07/25/2025 1:00 PM EST Surgery EDG STATIONARY BOILER FIREMAN [facility] [place] [address] Edis Garza MD [address] [place] [address] [place] [id number] LEFT ATRIAL APPENDAGE CLOSURE (WATCHMAN) Scheduled Orders Name Type Priority Associated Diagnoses Order Schedule EC ECHOCARDIOGRAM TRANSESOPHAGEAL STRUCTURAL INTRAOPERATIVE Imaging Cardiology Routine Persistent atrial fibrillation (HCC) 1 Occurrences starting 06/24/2025 until 06/24/2027 documented as of this encounter Visit Diagnoses Diagnosis Persistent atrial fibrillation (HCC)- Primary Atrial fibrillation Persistent atrial fibrillation (HCC)- Primary Atrial fibrillation Persistent atrial fibrillation (HCC) Atrial fibrillation documented in this encounter Orders Procedures Count Last Ordered Date First Orde red Date SURGICAL/PROCEDURE CASE REQUEST 1 5 documented in this encounter Additional Health Concerns Assessment Noted Time A fall risk assessment has been complete d for the patient 09/28/2024 1:34 PM EST documented as of this encounter
--- OUTSIDE RECORDS SUMMARY | 2025-07-12 14:52 | XMS_ITS | Encounter Summary ---
[facility] Organization [facility] Address [address] [place] [address] Care Team Providers Care Comic Artist Name Role Phone Cheko Heredia MD Primary Care Provider + Reason for Visit * Reason Comments Med Refill Encounter Details Date Type Department Care Team (Late st Contact Info) Description 04/30/2022 Refill [facility] MEDICINE [address] [facility] [place] [address] Cheko Heredia MD [address] [facility] [place] [address] Chronic pain syndrome; Anxiety about [...] Industry Job Start Date Job End Date [employer] Not on file Not on file Not on file documented as of this encounter Plan of Treatment Upcoming Encounters Date Type Department Care Team (Late st Contact Info) Description 09/12/2025 3:00 PM EST Office Visit [facility] MEDICINE [address] [facility] [place] [address] Cheko Heredia MD [address] [place] [address] 12/12/2025 2:15 PM EDT Office Visit [facility] MEDICINE [address] [place] [address] Cheko Heredia MD [address] [place] [address] Scheduled Procedures Name Priority Associated Diagnoses Date/Ti me ABLATION A-FIB Atrial fibrillation with RVR Cardiomyopathy, dilated, nonischemic Essential hypertension documented as of this encounter Visit Diagnoses Diagnosis Chronic pain syndrome Anxiety about health documented in this encounter Additional Health Concerns Assessment Noted Time PHQ-2 Depression Total Score: 5 01/11/20 22 1:44 PM EDT documented as of this encounter Care Teams Comic Artist Relationship Specialty Start Date End Date Cheko Heredia MD [address] [place] [address] PCP - General Family Medicine 01/10/22 documented as of this encounter
--- OUTSIDE RECORDS SUMMARY | 2025-07-12 14:52 | XMS_ITS | Encounter Summary ---
Author Organization [facility] Address [address] [place] [address] Care Team Providers Care Fresh Foods Clerk Name Role Phone Horace Kojo Primary Care Provider [phone] Skinny Massey MD Unavailable [phone] Encounter Details Date Type Department Care Team (Latest Contact Info) Description 04/19/2019 Preop Surgical Orders [facility] Physicians - Urology, [address] [phone] Skinny Massey MD [address] [place] [address] Increased frequency of urination (Primary Dx) Social [...] frequency documented in this encounter Care Teams Fresh Foods Clerk Relationship Specialty Start Date End Date HoraceKojo [address] [place] [id number] PCP - General 09/18/18 Skinny Massey MD [address] [place] [address] Urology 09/22/22 documented as of this encounter
--- OUTSIDE RECORDS SUMMARY | 2025-07-12 14:52 | XMS_ITS | Encounter Summary ---
Author Organization [place] [address] Care Team Providers Care Fashion Buying Internship Name Role Phone Unavailable Primary Care Provider Unavailabl e Encounter Details Date Type Department Care Team (Late st Contact Info) Description 06/30/2025 Orders Only [facility] [address] [place] [address] [address] [place] [address] Maribel Garcias APRN [address] [place] [phone] Other persistent atrial fibrillation (HCC) (Primary Dx) Social History [...] 07/25/2025 11:30 AM EST Hospital Encounter EDG CROWNING HAMMER OPERATOR [facility] [place] [address] Edis Garza MD [address] [place] [address] Persistent atrial fibrillation (HCC) 07/25/2025 11:30 AM EST - 07/25/2025 1:00 PM EST Surgery EDG CROWNING HAMMER OPERATOR [facility] [place] [place] [address] Edis Garza MD [address] [facility] [place] [address] LEFT ATRIAL APPENDAGE CLOSURE (WATCHMAN) documented as of this encounter Visit Diagnoses Diagnosis Persistent atrial fibrillation (HCC)- Primary Atrial fibrillation Other persistent atrial fibrillation (HCC)- Primary Persistent atrial fibrillation (HCC) Atrial fibrillation documented in this encounter Additional Health Concerns Assessment Noted Time A fall risk assessment has been complete d for the patient 09/28/2024 1:34 PM EST documented as of this encounter
--- OUTSIDE RECORDS SUMMARY | 2025-07-12 14:52 | XMS_ITS | Encounter Summary ---
Author Organization [facility] Address [address] [place] [address] Care Team Providers Care Signal Wirer Name Role Phone Cheko Heredia MD Primary Care Provider + Encounter Details Date Type Department Care Team (Late Contact Info) Description 12/12/2024 Results Follow-Up [facility] MEDICINE [address] [facility] [place] [address] Cheko Heredia MD [address] [facility] [place] [address] Social History Tobacco Use Types [...] Industry Job Start Date Job End Date [employer] Not on file Not on file Not on file documented as of this encounter Plan of Treatment Upcoming Encounters Date Type Department Care Team (Late Contact Info) Description 09/12/2025 3:00 PM EST Office Visit [facility] FAMILY MEDICINE [address] [place] [address] Cheko Heredia MD [address] [place] [address] 12/12/2025 2:15 PM EDT Office Visit [facility] MED[facility]INE [address] [place] [address] Cheko Heredia MD [address] [place] [address] Scheduled Procedures Name Priority Associated Diagnoses Date/Ti me ABLATION A-FIB Atrial fibrillation with RVR Cardiomyopathy, dilated, nonischemic Essential hypertension documented as of this encounter Visit Diagnoses Not on filedocumented in this encounter Care Teams Signal Wirer Relationship Specialty Start Date End Date Cheko Heredia MD [address] [place] [address] PCP - General Family Medicine 01/10/22 documented as of this encounter
--- OUTSIDE RECORDS SUMMARY | 2025-07-12 14:52 | XMS_ITS | Encounter Summary ---
Author Organization [place] [address] Care Team Providers Care Paradi Operator Name Role Phone Unavailable Primary Care Provider Unavailabl e Reason for Referral * Holter Monitor (Routine) - Authorization Not Needed Specialty Diagnoses / Procedures Referred By Contac t Referred To Contact Radiology Diagnoses Paroxysmal atrial fibrillation (HCC) Atrial fibrillation with rapid ventricular response (HCC) Cardiomyopathy, dilated, nonischemic (HCC) Procedures EV MOBILE CARDIAC TELEMETRY Edis Garza MD [address] [place] [address] Phone: tel: fax: Referral ID Status Reason Start Date Expiration Date Visits Requested Visits Authorized [id number] Authorization Not Needed 06/16/2025 06/16/2027 1 1 Reason for Visit * Reason Onset Date Comments Other 06/06/2025 Encounter Details Date Type Department Care Team (Late st Contact Info) Description 06/06/2025 Telephone [facility] Edg [address] [facility] [address] [place] [address] Edis Garza MD [address] [place] [address] Other Social History Tobacco Use Types Packs/Day [...] as of this encounter Miscellaneous Notes * Addendum Note - Charlotte Diez RMA - 06/16/2025 4:09 PM EDTAddended by: CHARLOTTE DIEZ on: 06/16/2025 04:09 PM Modules accepted: Orders * Telephone Encounter - Charlotte Diez RMA - 06/16/2025 12:05 PM EDT Informed pt monitor will be sent to home. Mino v/u * Telephone Encounter - Maribel Garcias APRN - 06/16/2025 11:37 AM EDT Called and spoke with patient. He is taking his Amio 200 mg PO BID. He is still having episodes of AF, more freq. He usually has them in the evening. His BB was stopped due to hypotension. Patient taking his Xarelto. Will get an event monitor for 1 week. Patient says that he is scheduled for a Watchman in Jul. He did say Dr. Garza did discuss with him possible re-do ablation. Maribel Garcias APRN Cardiac Electrophysiology * Telephone Encounter - Glendy Albright PA - 06/16/2025 10:34 AM EDT Forwarding to Maribel Garza pt :) * Telephone Encounter - Mary Orellana, Clerical Staff - 06/16/2025 10:17 AM EDT Patient is calling back to let us know that his heart rate. Please call Mino @ [phone] Thank you * Telephone Encounter - Won Soliz MA - 06/07/2025 2:24 PM EDT LMOM requesting a call back to gather additional information. * Telephone Encounter - Glendy Albright PA - 06/06/2025 3:45 PM EDT Attempted to call pt Left voicemail Need to clarify if he is talking about his HR or BP? Left office number for him to call back Glendy Albright PA-C Cardiac Electrophysiology * Telephone Encounter - Mary Orellana, Clerical Staff - 06/06/2025 11:05 AM EDT Patient is seen for AF. He is calling because he states for the past month his heart has been fluctuating between 130 to 155. He has been feeling it more frequent the past week. He has had blurred vision, lightheaded, and having shortness of breath Please call Mino @ [phone] Thank you documented in this encounter Plan of Treatment Upcoming Encounters Date Type Department Care Team (Latest Contact Info) Description 07/25/2025 11:30 AM EST Hospital Encounter EDG CHIP DRIER [facility] [place] [address] Edis Garza MD [address] [facility] [place] [address] Persistent atrial fibrillation (HCC) 07/25/2025 11:30 AM EST - 07/25/2025 1:00 PM EST Surgery EDG CHIP DRIER [facility] [place] [address] Edis Garza MD [address] [place] [address] [place] [address] LEFT ATRIAL APPENDAGE CLOSURE (WATCHMAN) Pending Results [...] nonischemic (HCC) 1 Occurrences starting 06/16/2025 until 06/16/2027 documented as of this encounter Visit Diagnoses Diagnosis Paroxysmal atrial fibrillation (HCC)- Primary Atrial fibrillation Atrial fibrillation with rapid ventricular [...]
--- OUTSIDE RECORDS SUMMARY | 2025-07-12 14:52 | XMS_ITS | Clinical Summary ---
Author Organization [facility] Address [address] [place] [address] Care Team Providers Care Auto Carrier Driver Name Role Phone Dariusz Vu MD Primary Care Provider [phone] Family History Medical History Relation Name Comments [...] Date Last Done Comments [facility]-Depression Screening 1945 [facility]-Infant/Child/Adol SDOH Screenings 1945 [facility]- SDOH Screenings 1964 [facility]-Adult SDOH Screenings 1963 [facility]-Zoster Vaccines (1 of 2) 1996 [facility]-DTaP,Tdap,and Td Vaccines (1 - Tdap) 11/19/1996 11/18/1996 [facility]-Pneumococcal Vaccine: 50+ Years (2 of 2 - PCV) 09/15/2020 09/15/2019, 06/04/2016 [facility]-RSV Vaccine: 60+ Years or (1 - 1-dose 75+ series) 2021 [id number]-72 Vaccine ( season) 2025 08/15/2022, 07/20/2021, 11/25/2020, Additional history exists [facility]-Influenza [...] complete this topic Insurance MEDICARE Care Teams Auto Carrier Driver Relationship Specialty Start Date End Date Dariusz Vu MD [address] [place] [address] [address] [place] [id number] PCP - General 01/26/21
--- OUTSIDE RECORDS SUMMARY | 2025-07-12 14:52 | XMS_ITS | Encounter Summary ---
Author Organization [place] [address] Care Team Providers Care Baccarat Manager Name Role Phone Unavailable Primary Care Provider Unavailabl e Reason for Visit * Reason Onset Date Comments Other 05/17/2025 Encounter Details Date Type Department Care Team (Late st Contact Info) Description 05/17/2025 Telephone Structural Hrt/Valve [address] [facility] [address] [place] [address] Renetta Conklin RN Other Social History Tobacco [...] Telephone Encounter - Renetta Conklin RN - 05/17/2025 10:18 AM EDT Summary: Watchman Shared Decision complete. Agreeable to 07/25. Would matt sooner date if one becomes available. Instructions to follow. documented in this encounter Plan of Treatment Upcoming Encounters Date Type Department Care Team (Latest Contact Info) Description 07/25/2025 11:30 AM EST Hospital Encounter EDG TABLE GAMES DUAL RATE SUPERVISOR [facility] [place] [address] Edis Garza MD [address] [place] [address] [place] [address] Persistent atrial fibrillation (HCC) 07/25/2025 11:30 AM EST - 07/25/2025 1:00 PM EST Surgery EDG TABLE GAMES DUAL RATE SUPERVISOR [facility] [place] [address] Edis Garza MD [address] [place] [address] [place] [address] LEFT ATRIAL APPENDAGE CLOSURE (WATCHMAN) documented as of this encounter Visit Diagnoses Not on filedocumented in this encounter Additional Health Concerns Assessment Noted Time A fall risk assessment has been complete d for the patient 09/28/2024 1:34 PM EST documented as of this encounter
--- OUTSIDE RECORDS SUMMARY | 2025-07-12 14:52 | XMS_ITS | Encounter Summary ---
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 OPERATOR - [employer] Social History Tobacco Use [...] Description 09/12/2025 3:00 PM EST Office Visit [facility] MEDICINE [address] [place] [address] Cheko Heredia MD [address] [place] [address] 12/12/2025 2:15 PM EDT Office Visit [facility] MEDICINE [address] [place] [address] Cheko Heredia MD [address] [place] [address] Scheduled Procedures Name Priority Associated Diagnoses Date/Ti me ABLATION A-FIB Atrial fibrillation with RVR Cardiomyopathy, dilated, nonischemic Essential hypertension documented as of this encounter Visit Diagnoses Not on filedocumented in this encounter Care Teams Drill Press Operator Helper Relationship Specialty Start Date End Date Cheko Heredia MD [address] [facility] [place] [address] PCP - General Family Medicine 01/10/22 documented as of this encounter
--- OUTSIDE RECORDS SUMMARY | 2025-07-12 14:53 | XMS_ITS | Encounter Summary ---
Author Organization [employer] ([place], [place], [place], [place]) Address [address] [place] [address] Care Team Providers Care Chancellor Name Role Phone Unavailable Primary Care Provider Unavailabl e Encounter Details Date Type Department Care Team (Late st Contact Info) Description 02/09/2019 Transcribed Document [facility] Family Medicine [facility] [place] [address] ProviderSoham MD [facility] [place] [address] Social History Tobacco Use Types [...] INTRAVENOUS FLUIDS: See Anesthesia record. DRAINS: A 20-Cymro coude catheter with 30 mL of sterile water in the balloon. OPERATIVE INDICATIONS: Mr. Hsu is a 73-year-old gentleman with a history of lower urinary tract symptoms, which have been refractory to five 6-atkjf-zvhmohgiq inhibitors, in addition the patient has been [...] the case. 4. Successful placement of a 20-Cymro coude catheter with 30 mL of sterile [...] sheath. We therefore dilated the patient from 24-Cymro to 28-Cymro utilizing male urethral sounds due to the patient having undergone a previous inflatable penile prosthesis placement. We were very elena and we were very gentle in our dilation and this was noted to be atraumatic as there was no urethral bleeding during this. We then successfully introduced the 28-Cymro continuous-flow resectoscope sheath again with the inner [...] Uro-Jet for local anesthesia and inserted a 20-Cymro two-way coude catheter with 30 mL sterile [...]
--- OUTSIDE RECORDS SUMMARY | 2025-07-12 14:53 | XMS_ITS | Clinical Summary ---
Author Organization [employer] ([place], [place], [place], [place]) Address [address] [place] [address] Care Team Providers Care Burrer Marker Axle Name Role Phone Unavailable Primary Care Provider [...]
--- OUTSIDE RECORDS SUMMARY | 2025-07-12 14:53 | XMS_ITS | Encounter Summary ---
Author Organization [place] [address] Care Team Providers Care Blood Bank Assistant Name Role Phone Unavailable Primary Care Provider Unavailabl e Encounter Details Date Type Department Care Team (Late st Contact Info) Description 08/08/2021 Orders Only [facility] Ar[facility] Ctr Edg [address] [place] [address] [address] [place] [address] Edis Garza MD [address] [place] [address] [place] [address] Social History Tobacco Use Types Packs/Day Years [...] 07/25/2025 11:30 AM EST Hospital Encounter EDG PAPER REWINDER OPERATOR [facility] [address] Edis Garza MD [address] [place] [address] [place] [address] Persistent atrial fibrillation (HCC) 07/25/2025 11:30 AM EST - 07/25/2025 1:00 PM EST Surgery EDG PAPER REWINDER OPERATOR [facility] [place] [id number] Edis Garza MD [address] [facility] [place] [address] LEFT ATRIAL APPENDAGE CLOSURE (WATCHMAN) documented as of this encounter Procedures Procedure Name Priority Date/Time Associated Diagnosis Comments EP LAB RECORDINGS Routine 08/08/2021 11:22 AM EST documented in this encounter Results * EP LAB RECORDINGS (08/08/2021 11:22 AM EST) 08/08/2021 11:2 2 AM EST us Edis Garza MD CARDIAC CATH ORDERABLES Final Result Performing Organization Address City/State/[facility] Co de Phone Number [facility] [address] [place] [address] documented in this encounter Visit Diagnoses Not on filedocumented in this encounter Additional Health Concerns Assessment Noted Time A fall risk assessment has been complete d for the patient 08/03/2021 2:11 PM EST documented as of this encounter
--- OUTSIDE RECORDS SUMMARY | 2025-07-12 14:53 | XMS_ITS | Encounter Summary ---
Author Organization [employer] ([place], [place], [place], [place]) Address [address] [place] [address] Care Team Providers Care Transmission Supervisor Name Role Phone Unavailable Primary Care Provider Unavailabl e Encounter Details Date Type Department Care Team (Late st Contact Info) Description 02/09/2019 Transcribed Document [facility] Family Medicine [facility] [place] [address] ProviderSoham MD [facility] [place] [address] Social History Tobacco Use Types [...] Soham ProviderMD - 02/09/2019 8:33 AM CDT [facility] Main OR PostOp Summary Primary Physician: EZ ODOM MD-URO Finalized Date/Time: 02/09/19 12:22:42 Pt. Name: MINO HSU /Sex: 1945 Male Med Rec #: [id number] Physician: EZ ODOM MD-URO Financial #: [id number] Pt. Type: O Room/Bed: /4 Admit/Disch: 02/09/19 06:12:00 - Institution: [facility] Main OR PostOp Case Times Entry 1 In PACU II 02/09/19 10:36:00 Ready for PACU II 02/09/19 11:15:00 Discharge Discharge from PACU 02/09/19 12:22:00 II Last Modified By: EMELY HINSON, ERIK 02/09/19 12:22:27 [facility] Main OR PostOp Case Times Audit 02/09/19 12:22:27 Client Delivery Specialist: IESHA Modifier: IESHA 1 <*> Ready for PACU II Discharge 02/09/19 11:34:00 1 <+> Discharge from PACU II Finalized By: EMELY HINSON RN Document Signatures Signed By: EMELY HINSON RN 02/09/19 12:22 Electronically signed by Tasha [facility] Conversion Power Cleaner Operator Cerner at 12/30/2022 9:37 AM CDT documented in this encounter Plan of Treatment Not on file documented as of this encounter Visit Diagnoses Not on filedocumented in this encounter
--- OUTSIDE RECORDS SUMMARY | 2025-07-12 14:53 | XMS_ITS | Clinical Summary ---
Author Organization [facility] Address [address] [place] [address] Care Team Providers Care Log Snaker Name Role Phone Cheko Heredia MD Primary Care Provider + Allergies Active Allergy Reactions Criticality Noted Date Comments Sulfa Antibiotics Nausea Only Medium 05/27/2019 Medications [place]-3 Fatty Acids (FISH OIL) 1000 MG capsule [...] : High Blood Pressure 05/18/20 24 Active Xarelto 15 MG tablet Take 1 tablet by mouth Daily With Dinner. 08/25/20 24 Active tamsulosin (FLOMAX) 0.4 MG capsule 24 hr capsule TAKE ONE CAPSULE BY MOUTH EVERY NIGHT AT BEDTIME 30 capsule 11 09/21/19 25 Active pantoprazole (PROTONIX) 40 MG [...] RELIEF GO TO ER. 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 90 tablet 06/13/20 25 Active diazePAM (VALIUM) 5 MG tabletIndications :Anxiety about health Take 1 tablet by mouth Every 12 (Twelve) Hours As Needed for Anxiety. 60 tablet 2 06/13/20 25 Active cyclobenzaprine (FLEXERIL) 5 MG tabletIndications :Lumbar paraspinal muscle spasm Take 1 tablet by mouth 3 (Three) Times a Day As Needed for Muscle Spasms. 30 tablet 06/13/20 25 Active Jardiance 10 MG tablet tabletIndications :Type 2 diabetes mellitus without complication, without long-term current use of insulin Take 1 tablet by mouth Daily. 30 tablet 11 06/13/20 25 Active metoprolol succinate XL (TOPROL-XL) 25 MG 24 hr tablet Take 1 Tablet by mouth once daily. 30 tablet 3 06/21/20 25 Active cyclobenzaprine (FLEXERIL) 5 MG tablet Take 1 tablet by mouth 3 (Three) Times a Day As Needed. 03/09/20 24 025 Discontinued(R shivaer) metoprolol succinate XL (TOPROL-XL) 25 MG 24 hr tablet Take 0.5 tablets by mouth Every Other Day. 09/10/20 24 025 Discontinued Jardiance 10 MG tablet tabletIndications :Type 2 diabetes mellitus with hyperglycemia, without long-term current use of insulin Take 1 Tablet by mouth once daily. 30 tablet 2 03/10/20 25 025 Discontinued(R eorder) diazePAM (VALIUM) 5 MG tabletIndications :Chronic pain syndrome,Anxiety about health Take 1 tablet by mouth Every 12 (Twelve) Hours As Needed for Anxiety. 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 90 tablet 05/17/20 25 025 Discontinued(R eorder) Active Problems Problem Noted Date Diagnosed Date Type 2 diabetes mellitus wit hout complication, without long-term current use of insulin 06/13/2025 Microalbuminuria 11/27/2023 Mixed type COPD (chronic obstructive [...] (Eight) Hours As Needed for Severe Pain. [facility] prescription opiate use 01/10/2022 Chronic systolic heart failure 11/01/2016 Overview (11/01/2016): Echocardiogram 08/22/2016: EF 30%, moderate MR, mild pulmonary hypertension Ischemic cardiomyopathy 10/17/2016 Generalized weakness 09/01/2016 Pleural effusion 09/01/2016 Paroxysmal atrial fibrillation 08/31/2016 Assessment & Plan (12/10/2024 3:47 PM EDT): Orders: TSH Rfx On Abnormal To Free T4 Persistent atrial fibrillation 07/11/2016 Overview (11/01/2016): Diagnosed at [facility] with initiation of Xarelto and amiodarone, [...] ventricular rate of 82 beats per minute. IA interval 164 milliseconds, QRS duration 96 milliseconds, QTC 418 milliseconds. Coronary artery disease invo lving grayling coronary artery of grayling heart without angina pectoris 01/30/2016 Overview (07/11/2016): [...] 2010 - Chest pain with catheterization revealing TRAIN OPERATOR of RCA collateralized, normal LVEF. Unchanged from prior. January 2016 -- cardiac catheterization by Rudolph Jj revealing TRAIN OPERATOR of RCA (collateralized) and 90% stenosis [...] Encounters Date Type Department Care Team Description 06/21/2025 Refill [facility] [address] [facility] [place] [phone] Cheko Heredia MD Type 2 diabetes mellitus without complication, without long-term current use of insulin 06/13/2025 3:00 PM EDT Office Visit [facility] [address] [place] [address] Cheko Heredia MD Type 2 diabetes mellitus without complication, without long-term current use of insulin (Primary Dx); Chronic pain syndrome; Spondylosis of lumbar region without myelopathy or radiculopathy; Anxiety about health; Lumbar paraspinal muscle spasm; Paroxysmal atrial fibrillation 06/13/2025 Travel 05/17/2025 Telephone [facility] [address] [place] [address] Cheko Heredia MD Med Refill 05/05/2025 Telephone [facility] [address] [place] [address] Cheko Heredia MD Prior Authorization (Diazepam ) 04/12/2025 Refill [facility] [address] [place] [address] Cheko Heredia MD Chronic pain syndrome; Spondylosis [...] Industry Job Start Date Job End Date [employer] Not on file Not on file [...] Mass Index 28.26 06/13/2025 3:00 PM EDT Plan of Treatment Upcoming Encounters Date Type Department Care Team (Late st Contact Info) Description 09/12/2025 3:00 PM EST Office Visit [facility] [address] [place] [address] Cheko Heredia MD [address] [place] [address] 12/12/2025 2:15 PM EDT Office Visit [facility] [address] [place] [address] Cheko Heredia MD [address] [place] [address] Scheduled Procedures Name Priority Associated Diagnoses Date/Ti [...] 11/02/2021 11/02/2020, , 04/21/2017, Additional history exists INFLUENZA VACCINE 04/15/2025 08/09/2024, , 07/21/2023, Additional history exists COVID-19 Vaccine (2024-2 6 season) 2025 08/15/2022, 07/20/2021, 11/25/2020, Additional history exists ANNUAL WELLNESS VISIT 12/10/2025 12/10/2024 , 12/10/2024, 08/26/2023, Additional history exists LIPID PANEL 12/10/2025 12/10/2024, 09/0 11/2023, 08/26/2023, Additional history exists URINE MICROALBUMIN-CREATININ E RATIO (uACR) 12/10/2025 12/10/2024 HEMOGLOBIN A1C 12/11/2025 06/13/2025, 11/14, 03/08/2024, Additional history exists COLONOSCOPY 07/29/2034 07/29/2024, 04/16, 05/05/2020, Additional history exists COLORECTAL CANCER SCREENING 07/29/2034 LUNG CANCER SCREENING Discontinued 05/16/2016 Medical Devices Implanted Type Area Pricing Coordinator Device Identifier Shelf Expiration Date Model / Serial / Lot Stent Stent Stent Description:3 cardiac stents Stent Description:3 cardiac stents Stent Description:3 cardiac stents Procedures Procedure Name Priority Date/Time Associated Diagnosis Comments POCT GLYCOSYLATED HEMOGLOBIN (HGB A1C) Routine 06/13/2025 3:12 PM EDT Type 2 diabetes mellitus without complication, without long-term current use of insulin SCANNED EKG 04/22/2025 SCANNED - LABS 04/22/2025 SCANNED - LABS 04/22/2025 SCANNED - LABS 04/22/2025 SCANNED - LABS 04/22/2025 SCANNED - LABS 04/22/2025 SCANNED - LABS 04/22/2025 SCANNED - LABS 04/22/2025 SCANNED - LABS 04/22/2025 SCANNED - IMAGING 04/22/2025 SCANNED - LABS 04/14/2025 SCANNED - LABS 04/14/2025 POC ALBUMIN/CREATININE RATIO Routine 12/10/2024 3:26 PM EDT Type 2 diabetes mellitus with hyperglycemia, without long-term current use of insulin LIPID PANEL Routine 12/10/2024 3:04 PM EDT Type 2 diabetes mellitus with hyperglycemia, without long-term current use of insulin SCANNED - INFLUENZA 07/21/2023 from Last 3 Months or Most Recently Relevant to Health Maintenance Results * (ABNORMAL) POC Glycosylated Hemoglobin (Hb A1C) (06/13/2025 3:12 PM EDT) Hemoglobin A1C 6.1(A) 4.5 - 5.7 % [facility] Lot Number [id number] [facility] Expiration Date 12/16/2026 [facility] Blood 06/13/2025 3:12 PM EDT us Cheko Heredia MD POINT OF CARE TEST ORDER ZORAIDA Final Result [facility]
[address] [place] [address], * ECG Scan (04/22/2025) Reilly Noble MD ECG ORDERABLES Final Result * IMAGING SCANNED (04/22/2025) Anatomical Region Laterality Modality Radiographic Susanne ging Cheko Heredia MD IMG DIAGNOSTIC IMAGING O RDERABLES Final Result * LABS SCANNED (04/22/2025) Only the most recent of10 resultswithin the time period is included. Cheko Heredia MD LAB BLOOD ORDERABLES Fin al Result * POC Albumin/Creatinine Ratio Urine (12/10/2024 3:26 PM EDT) POC ALBUMIN, URINE 30 mg/L POC CREATININE, URINE 100 mg/dL POC Urine Albumin Creatinine Ratio <30 mg/g <30 Comment:normal Lot Number [id number] Expiration Date 10/15/2025 Urine 12/10/2024 3:26 PM EDT Result [facility] Cheko Heredia MD POINT OF CARE TEST ORDER ZORAIDA Final Result * (ABNORMAL) Lipid Panel (12/10/2024 3:04 PM [...] 12/11/2024 6:09 AM EDT Performed at: - [facility] [id number] Pole Truck Driver: Jose Weller PhD, Phone: [phone] Patient Fasting: Y Cheko Heredia MD LAB BLOOD ORDERABLES Fin al Result [facility] (AM[facility]UL[facility]) [address] [place] [address], [facility] [address] [place] [address], * SCANNED - INFLUENZA (07/21/2023) [facility] CHART REVIEW TABS Final Re sult from Last 3 Months or Most Recently Relevant to Health Maintenance Insurance MEDICARE A & B Member Subscriber Plan / Payer (Ef fective 2011-Present) Name:Mino Hsu Member ID:[id number] Relation to Subscriber:Self Name:Mino Hsu Subscriber ID:[id number] Payer ID:[id number] Group ID:Not on file Type:Not on file Address: [address] [place] [id number] [facility] Advance Directives * Full Code (Latest Code Status on File) Date Activated Date Inactivated Comments 09/01/2016 12:25 AM 09/02/2016 3:37 PM Care Teams Log Snaker Relationship Specialty Start Date End Date Cheko Heredia MD [address] [place] [address] [place] [address] PCP - General Family Medicine 01/10/22
--- OUTSIDE RECORDS SUMMARY | 2025-07-12 14:53 | XMS_ITS | Encounter Summary ---
Author Organization [employer] ([place], [place], [place], [place]) Address [address] [place] [id number] Care Team Providers Care Metal Sander And Finisher Name Role Phone Unavailable Primary Care Provider Unavailabl e Encounter Details Date Type Department Care Team (Late st Contact Info) Description 02/09/2019 Transcribed Document [facility] Family [place] [address] ProviderSoham [place] [address] Social History Tobacco Use Types [...] 1945 Associated Diagnoses: None Author: SACHIN BERNAL, SUPPLIER QUALITY MANAGER Chief Complaint BPH Review of Systems ROS [...] Stented coronary artery x3 / SNOMED CT 2708324169 / Confirmed Pneumonia / SNOMED CT 170503133 / Confirmed Hyperlipidemia / SNOMED CT 11299823 / Confirmed High blood pressure / SNOMED CT 80252946 / Confirmed Hemorrhoids / SNOMED CT 869550952 / Confirmed Hard of hearing, left ear / SNOMED CT 506543413 / Confirmed Disorder of prostate / SNOMED CT 82342415 / Confirmed Cataract / SNOMED CT 323024023 / Confirmed Back pain / SNOMED CT 9924132023 / Confirmed A-fib / SNOMED CT 95987075 / Confirmed, Active Problems (10) A-fib Back [...] Stable. Electronically signed by Bhupinder Cordova Conversion Returned Goods Receiving Clerk Cerner at 12/30/2022 9:47 AM CDT documented in this encounter Plan of Treatment Not on file documented as of this encounter Visit Diagnoses Not on filedocumented in this encounter
--- OUTSIDE RECORDS SUMMARY | 2025-07-12 14:53 | XMS_ITS | Encounter Summary ---
Author Organization [employer] ([place], [place], [place], [place]) Address [address] [place] [id number] Care Team Providers Care Floor Covering Layer Name Role Phone Unavailable Primary Care Provider Unavailabl e Encounter Details Date Type Department Care Team (Late st Contact Info) Description 02/09/2019 Transcribed Document [facility] Family Medicine [facility] [place] [address] ProviderSoham MD [facility] [place] [address] Social History Tobacco Use Types [...] CDT [facility] Main OR IntraOp Summary Primary Physician: EZ ODOM MD-URO Finalized Date/Time: 02/10/19 10:14:52 Pt. Name: MINO BROWN Rudi /Sex: 1945 Male Med Rec #: [id number] Physician: EZ ODOM MD-URO Financial #: [id number] Pt. Type: O Room/Bed: /4 Admit/Disch: 02/09/19 06:12:00 - 02/09/19 10:22:00 Institution: [facility] IntraOp Case Attendance Entry 1 Entry 2 Entry 3 Case Attendee EZ ODOM CORNEA, MIHAELA, MD BREITIGAN, STEPHEN, CRNA MD-URO Role Performed Surgeon/Proceduralist, Anesthesiologist of MEDICAL RADIATION THERAPIST/Nurse Manager Contract First Record Time In 02/09/19 08:17:00 02/09/19 [...] HERO DOUGLAS MD Madden, Jerrild Role Performed Chemicals Fermentation Operator, First Resident Laser Stud Sheep Farmer Time In 02/09/19 08:17:00 02/09/19 08:17:00 02/09/19 [...] Modified By: Swapna Vasquez RN 02/09/19 09:27:39 [facility] IntraOp Case Attendance Audit 02/09/19 09:27:39 Ethyl Blender: KARINA Modifier: KARINA 1 <+> Time Out [...] 7 <*> Procedure Prostate Green Light Laser [facility] IntraOp Case Times Entry 1 Patient In Room Time 02/09/19 08:17:00 Out Room Time 02/09/19 09:27:00 Anesthesia Start Time 02/09/19 08:17:00 Stop Time 02/09/19 09:27:00 Surgery / Procedure Times Start Time 02/09/19 08:33:00 Stop Time 02/09/19 09:16:00 Last Modified By: Swapna Vasquez RN 02/09/19 09:27:27 [facility] IntraOp Case Times Audit 02/09/19 09:27:27 Ethyl Blender: KARINA Modifier: POFFJAN <+> 1 Out Room Time <+> 1 Stop Time 02/09/19 09:16:05 Ethyl Blender: MANUELFFKULWINDER Modifier: POFFJAN <+> 1 Stop Time [facility] IntraOp Communication Entry 1 Communication To Family/Significant other Comment Start Communication By Swapna Vasquez RN Date and Time 02/09/19 08:33:00 Last Modified By: Swapna Vasquez RN 02/09/19 08:44:49 [facility] IntraOp Delays Entry 1 Delay Reason Surgeon late - no reason Duration 17 Minute(s) Comment surgeon at bedside at 0810 Last Modified By: Swapna Vasquez RN 02/09/19 08:37:30 [facility] IntraOp Departure from OR Entry 1 Integumentary Assessment Integumentary WDL Assessment WDL Transfer/Handoff Transfer to PACU Phase I Handoff Method Phone call Handoff Reported to JEFFERSON MATHUR RN Post-op Transport Stretcher/Gurney Via Patient Transport ALEX CORDERO, Accompanied by CHANDA MOLINA JOHN, MD Last Modified By: Swapna Vasquez RN 02/09/19 09:27:52 [facility] IntraOp Departure from OR Audit 02/09/19 09:27:52 Ethyl Blender: POFFJAN Modifier: POFFJAN <+> 1 Handoff Reported to 02/09/19 09:19:07 Ethyl Blender: POFFJAN Modifier: POFFJAN <+> 1 Patient Transport Accompanied by [facility] IntraOp Fire Risk Assessment Entry 1 [...] Modified By: Swapna Vasquez RN 02/09/19 08:41:29 [facility] IntraOp General Case Nurses' Association Counselor 1 Case Information OR OR 03 [facility] Case Level 1 Room Verified Yes Wound Class II - Clean-Contaminated Specialty SN Urology Anesthesia Type General ASA Class 3 Diagnosis 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 Postop Same As Preop Yes 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 Last Modified By: Swapna Vasquez RN 02/09/19 09:00:23 [facility] IntraOp General Case Data Audit 02/09/19 09:00:23 Ethyl Blender: MANUELLEWISKULWINDER Modifier: POEDSON <+> 1 Postop Same As Preop <+> 1 Preop Diagnosis <+> 1 Postop Diagnosis [facility] IntraOp Intraoperative Assessment Entry 1 Handoff [...] Modified By: Swapna Vasquez RN 02/09/19 08:43:17 [facility] IntraOp Intraoperative Equipment Entry 1 Type Monitoring Equipment Intraop Monitoring Electrocardiogram Three lead placement (ECG) Electrode Placement Blood Pressure Non-Invasive BP Device Source Blood Pressure Arm, right upper Location Pulse Oximeter Hand, left Probe Site Antiembolic Devices Antiembolic Devices Sequential compression device, knee high Antiembolic Device Bilateral Location Antiembolic Device [id number] ID Number Scopes Photo/Video Documentation Photo No Video No Intraop Equipment Sequential compression Comment devices on and in operation prior to induction of anesthesia. Last Modified By: Swapna Vasquez RN 02/09/19 08:44:16 [facility] IntraOp Medication Admin Entry 1 Entry 2 Entry 3 Medication/Irrigant ZIGGY IRR 0.9% NACL B&O 16A Suppository - ZIGGY IRR NACL 0.9PCT 1000ML --[id number] Combo Med List Time Administered 02/09/19 08:33:00 [...] Medication/Irrigant lidocaine 2% urojet 10ml jelly - [id number] Combo Med List Time Administered 02/09/19 09:14:00 Route of Local, urethra Administration Dose Dose 10 Unit of Measure ml Volume Administered By HERO ARMAS MD Procedure Irrigation Irrigant Volume In Irrigant Volume Out Last Modified By: Swapna Vasquez RN 02/09/19 09:18:40 [facility] IntraOp Medication Admin Audit 02/09/19 09:18:40 Ethyl Blender: KARINA Modifier: KARINA 1 <*> Administered By EZ ODOM MD-URO 1 <+> Irrigant Volume In 1 <+> Irrigant Volume Out 2 <*> Medication/Irrigant B&O 16A Suppository - [id number] 2 <+> Dose 2 <+> Time Administered 3 <*> Medication/Irrigant ZIGGY IRR NACL 0.9PCT 3000ML-[id number] 3 <+> Irrigant Volume In 3 <+> Irrigant Volume Out 4 <*> Medication/Irrigant lidocaine 2% urojet 10ml jelly - [id number] 4 <+> Time Administered 02/09/19 08:47:57 Ethyl Blender: KARINA Modifier: KARINA <+> 4 Medication/Irrigant <+> 4 Route of Administration <+> 4 Administered By <+> 4 Dose <+> 4 Unit of Measure [facility] IntraOp Patient Positioning Entry 1 Procedure [...] Modified By: Swapna Vasquez RN 02/09/19 08:41:05 [facility] IntraOp Sign In Entry 1 Patient, [...] Modified By: Swapna Vasquez RN 02/09/19 08:37:40 [facility] IntraOp Sign Out Entry 1 RN [...] Modified By: Swapna Vasquez RN 02/09/19 09:27:35 [facility] IntraOp Sign Out Audit 02/09/19 09:27:35 Ethyl Blender: KARINA Modifier: KARINA <+> 1 RN Sign Out Signature Date/Time 02/09/19 09:18:55 Ethyl Blender: KARINA Modifier: KARINA <+> 1 Urinary Catheter Documented in IView [facility] IntraOp Skin Prep Entry 1 Procedure Prostate Green Light Laser Prescribed Yes Pre-Surgical Prep Completed Prep Area Genitalia Intraop Prep Integumentary WDL Assessment WDL Prep Agents Betadine solution Prep by Swapna Vaqsuez RN Hair Removal Last Modified By: Swapna Vasquez RN 02/09/19 08:43:49 [facility] IntraOp Surgical Procedures Entry 1 Procedure Prostate Green Light Laser Additional GREENLIGHT LASER OF Procedure PROSTATE Description Primary Procedure Yes Primary Surgeon EZ ODOM MD-URO Start 02/09/19 08:33:00 Stop 02/09/19 09:16:00 Anesthesia Type General Specialty SN Urology Wound Class II - Clean-Contaminated Last Modified By: Swapna Vasquez RN 02/09/19 09:16:11 [facility] IntraOp Surgical Procedures Audit 02/09/19 09:16:11 Ethyl Blender: KARINA Modifier: KARINA <+> 1 Stop [facility] IntraOp Temp Regulation Devices Entry 1 Temp Regulation Temperature Warm blankets, Room Regulation Device temperature Temperature Upper body Regulation Site Temperature Swapna Vasquez RN Regulation Device Applied by Temperature Patient's temperature Regulation Comment monitored by anesthesia provider. Forced air warming device settings controlled by anesthesia provider. Last Modified By: Swapna Vasquez RN 02/09/19 08:44:27 [facility] IntraOP Time Out Entry 1 Procedure [...] for Unfinalizing 02/10/19 10:14 [facility] Correct Billing Electronically signed by Parvez Cordova Conversion Business Support Administrator Cerner at 12/30/2022 9:52 AM CDT documented in this encounter Plan of Treatment Not on file documented as of this encounter Visit Diagnoses Not on filedocumented in this encounter
--- OUTSIDE RECORDS SUMMARY | 2025-07-12 14:53 | XMS_ITS | Encounter Summary ---
Author Organization [employer] ([place], [place], [place], [place]) Address [address] [place] [address] Care Team Providers Care Injection Maintenance Technician Name Role Phone Unavailable Primary Care Provider Unavailabl e Encounter Details Date Type Department Care Team (Late st Contact Info) Description 02/09/2019 Transcribed Document [facility] [place] Family Medicine [facility] [place] [address] ProviderSoham MD [facility] [address] Social History Tobacco Use Types [...] Soham ProviderMD - 02/09/2019 12:11 PM CDT [place] [address] MINO HSU :1945 Visit Time:02/09/2019 [...] EDT Comments Appointment has been made Where: [address] [place] [address]- [employer] (1) Medications What How Much When Instructions [...] on each side. Do this in a kccqv-zt-auxn direction. ? If you are male: ? [...] and water are not available, use hand area safety manager. ??? Always make sure there are [...] 09/01/2006 Document Revised: 04/17/2018 Document Reviewed: 04/17/2018 [employer] Interactive Patient Education ?? 2019 [employer] Inc. Prostate Laser Surgery, Care After This [...] clear or pale yellow. Medicines ??? Take owyr-ciq-pkesqbb and prescription medicines, including stool softeners, only [...] 09/01/2006 Document Revised: 04/18/2017 Document Reviewed: 04/18/2017 [employer] Interactive Patient Education ?? 2019 [employer]. Outpatient Surgery, Adult, Care After These instructions [...] and water are not available, use hand area safety manager. ? Change your dressing as told [...] or a bad smell. Medicines ??? Take llxu-huh-hforalo and prescription medicines only as told by [...] 12/22/2016 Document Revised: 04/09/2018 Document Reviewed: 12/22/2016 [employer] Interactive Patient Education ?? 2019 [employer] Inc. phenazopyridine (fen AY matthew PIR i [...] or ?? a genetic enzyme deficiency called rihpqkn-3-wbvdexhma dehydrogenase (G6PD) deficiency. FDA category B. Phenazopyridine [...] may report side effects to FDA at 2-806-CGC-5961. What other drugs will affect phenazopyridine? Other drugs may interact with phenazopyridine, including prescription and egqq-djo-wtcjsou medicines, vitamins, and herbal products. Tell each [...] to ensure that the information provided by [employer]. ('[employer]') is accurate, up-to-date, and complete, but no guarantee is made to that effect. Drug information contained herein may be time sensitive. [employer] information has been compiled for use by healthcare practitioners and consumers in the [place] and therefore [employer] does not warrant that uses outside of the [place] are appropriate, unless specifically indicated otherwise. [employer] drug information does not endorse drugs, diagnose patients or recommend therapy. [employer]'s drug information is an informational resource designed [...] effective or appropriate for any given patient. [facility] does not assume any responsibility for any aspect of healthcare administered with the aid of information [facility] provides. The information contained herein is not intended to cover all possible uses, directions, precautions, warnings, drug interactions, allergic reactions, or adverse effects. If you have questions about the drugs you are taking, check with your doctor, nurse or pharmacist. Copyright 2863-5565 [employer]. Version: 3.05. Revision Date: 01/06/2014.nitrofurantoin (BELKIS troe [...] electrolyte imbalance or vitamin B deficiency; ?? wcwrbvb-0-snpgepzsx dehydrogenase (G6PD) deficiency; or ?? any type [...] may report side effects to FDA at 8-034-OZQ-8118. What other drugs will affect nitrofurantoin? Other drugs may interact with nitrofurantoin, including prescription and jwyw-sbi-ijtihhf medicines, vitamins, and herbal products. Tell each [...] to ensure that the information provided by [employer]. ('[employer]') is accurate, up-to-date, and complete, but no guarantee is made to that effect. Drug information contained herein may be time sensitive. [employer] information has been compiled for use by healthcare practitioners and consumers in the [place] and therefore [employer] does not warrant that uses outside of the [place] are appropriate, unless specifically indicated otherwise. [employer] drug information does not endorse drugs, diagnose patients or recommend therapy. [employer] drug information is an informational resource designed [...] effective or appropriate for any given patient. [employer] does not assume any responsibility for any aspect of healthcare administered with the aid of information [employer] provides. The information contained herein is not intended to cover all possible uses, directions, precautions, warnings, drug interactions, allergic reactions, or adverse effects. If you have questions about the drugs you are taking, check with your doctor, nurse or pharmacist. Copyright 5318-7663 [employer]. Version: 8.01. Revision Date: 11/23/2013.acetaminophen and hydrocodone (a SEET a MIN oh fen and cassi AMBROCIO done) Hycet, Lorcet, Advance, Verdrocet, Vicodin, Xodol, Zamicet What is the [...] may report side effects to FDA at 0-760-MES-0999. What other drugs will affect acetaminophen and [...] affect acetaminophen and hydrocodone, including prescription and wjbn-pxg-gxndplu medicines, vitamins, and herbal products. Not all [...] to ensure that the information provided by [employer] ('[employer]') is accurate, up-to-date, and complete, but no guarantee is made to that effect. Drug information contained herein may be time sensitive. [employer] information has been compiled for use by healthcare practitioners and consumers in the [place] and therefore [employer] does not warrant that uses outside of the [place] are appropriate, unless specifically indicated otherwise. [employer] drug information does not endorse drugs, diagnose patients or recommend therapy. [employer] drug information is an informational resource designed [...] effective or appropriate for any given patient. [employer] does not assume any responsibility for any aspect of healthcare administered with the aid of information [employer] provides. The information contained herein is not intended to cover all possible uses, directions, precautions, warnings, drug interactions, allergic reactions, or adverse effects. If you have questions about the drugs you are taking, check with your doctor, nurse or pharmacist. Copyright 2253-5171 [employer]. Version: 15.. Revision Date: 07/20/2018.docusate (oral/rectal) (DOK [...] may report side effects to FDA at 7-327-GXN-1466. What other drugs will affect docusate? Other drugs may interact with docusate, including prescription and xdih-pxu-xddnxus medicines, vitamins, and herbal products. Tell each [...] to ensure that the information provided by [employer]. ('[employer]') is accurate, up-to-date, and complete, but no guarantee is made to that effect. Drug information contained herein may be time sensitive. [employer] information has been compiled for use by healthcare practitioners and consumers in the [place] and therefore [employer] does not warrant that uses outside of the [place] are appropriate, unless specifically indicated otherwise. [employer]'s drug information does not endorse drugs, diagnose patients or recommend therapy. [employer] drug information is an informational resource designed [...] effective or appropriate for any given patient. [employer] does not assume any responsibility for any aspect of healthcare administered with the aid of information [employer] provides. The information contained herein is not intended to cover all possible uses, directions, precautions, warnings, drug interactions, allergic reactions, or adverse effects. If you have questions about the drugs you are taking, check with your doctor, nurse or pharmacist. Copyright 4661-2203 [employer]. Version: 3.03. Revision Date: 10/27/2013. Emergency Awareness [...] Assistance with quitting is available by contacting 0-163-HNRXNOW. This is a free resource providing counseling, [...] computer, smartphone, or tablet. Just go to [employer] to get started. Questions? Call . Test Results Laboratory or Other Results This Visit (last charted value for your 02/09/2019 visit) No Laboratory or Other Results This Visit Patient Name:MINO HSU I have received this information and was given the opportunity to ask questions. Patient/Liquor Establishment Manager Name: Patient/Liquor Establishment Manager Signature: Relationship to Patient: Clinician/Hospital Liquor Establishment Manager Signature: Date: documented in this encounter Plan of Treatment Not on file documented as of this encounter Visit Diagnoses Not on filedocumented in this encounter
--- OUTSIDE RECORDS SUMMARY | 2025-07-12 14:53 | XMS_ITS | Encounter Summary ---
Author Organization [employer] ([place], [place], [place], [place]) Address [address] [place] [address] Care Team Providers Care Chemical Dependency Nurse Name Role Phone Unavailable Primary Care Provider Unavailabl e Encounter Details Date Type Department Care Team (Late st Contact Info) Description 02/09/2019 Transcribed Document [facility] Medicine [facility] [place] [address] ProviderSoham MD [facility] [place] [address] Social History Tobacco Use Types [...] AM CDT [facility] Main OR Preop Summary Primary Physician: EZ ODOM MD-URO Finalized Date/Time: 02/09/19 09:15:02 Pt. Name: MINO HSU /Sex: 1945 Male Med Rec #: [id number] Physician: EZ ODOM MD-URO Financial #: [id number] Pt. Type: O Room/Bed: /4 Admit/Disch: 02/09/19 06:12:00 - Institution: [facility] PreOp Case Times Entry 1 In Preop 02/09/19 06:27:00 Ready for Holding n/a Room Patient Ready for 02/09/19 07:23:00 Surgery Patient Out of Preop 02/09/19 08:15:00 Patient Out of n/a Holding Room Last Modified By: Reisner, Vielka, RN 02/09/19 09:15:01 [facility] PreOp Case Times Audit 02/09/19 09:15:01 Inside Plant Supervisor: GIBRAN Modifier: REISNERK <+> 1 Patient Out of Preop 02/09/19 07:31:13 Inside Plant Supervisor: GIBRAN Modifier: REISNERK <+> 1 In Preop Finalized By: Vielka Dillon, RN Document Signatures Signed By: Vielka Dillon RN 02/09/19 09:15 Electronically signed by Tasha [facility] Conversion Elevated Work Platform Operator Cerner at 12/30/2022 10:00 AM CDT documented in this encounter Plan of Treatment Not on file documented as of this encounter Visit Diagnoses Not on filedocumented in this encounter
--- OUTSIDE RECORDS SUMMARY | 2025-07-12 14:53 | XMS_ITS | Encounter Summary ---
Author Organization [employer] ([place], [place], [place], [place]) Address [address] [place] [address] Care Team Providers Care Explosives Handler Name Role Phone Unavailable Primary Care Provider Unavailabl e Encounter Details Date Type Department Care Team (Late st Contact Info) Description 01/27/2019 Transcribed Document [facility] [place] Family Medicine [address] [place] [address] ProviderSoham MD [address] [place] [address] Social History Tobacco Use Types [...] Source : Measured Height Entry Format : [place] Height, Feet : 0 ft(Converted to: 0 cm, 0 Inch) Height, Inches : 72 Inch(Converted to: 6 ft 0 Inch, 182.88 cm) Clinical Height : 182.88 cm Weight Source : Standing scale Weight Entry Format : [place] Clinical Dosing Weight : 90.91 kg Weight, Pounds : 200 lb Body Surface Area (BSA) : 2.13 m2 Body Mass Index : 27.2 kg/m2 (HI) [place] Body Weight : 77 kg Vielka Dillon [...] : Living will, Medical durable power of contract attorney (proxy) Copy Advance Directive Verified/on Chart [...] RN - 02/05/2019 12:50 EDT Support Person/Patient Form Stripper : Yes Support Person/Pt Rep Name : Jesus Hammond- brother [phone] Want Family/Rep/Phys Notified of Admit : No Information Obtained From : Patient Primary Language : Georgian Preferred Communication Mode : Verbal Communication Barrier [...] Anali Hannah RN - 01/27/2019 17:18 EDT Electronically signed by Bhupinder Cordova Conversion Senior Sales Administrator [employer] at 12/30/2022 9:40 AM CDT documented in this encounter Plan of Treatment Not on file documented as of this encounter Visit Diagnoses Not on filedocumented in this encounter
--- OUTSIDE RECORDS SUMMARY | 2025-07-12 14:53 | XMS_ITS | Encounter Summary ---
Author Organization [employer] ([place], [place], [place], [place]) Address [address] [place] [address] Care Team Providers Care Manager Internet Retails Sales Name Role Phone Unavailable Primary Care Provider Unavailabl e Encounter Details Date Type Department Care Team (Late st Contact Info) Description 02/09/2019 Transcribed Document [facility] [place] [facility] [address] ProviderSoham MD [facility] [place] [address] Social History Tobacco Use Types [...] Soham ProviderMD - 02/09/2019 8:33 AM CDT [facility] Main OR PACU Summary Primary Physician: EZ ODOM MD-URO Finalized Date/Time: 02/09/19 10:42:36 Pt. Name: MINO HSU /Sex: 1945 Male Med Rec #: [id number] Physician: EZ ODOM MD-URO Financial #: [id number] Pt. Type: O Room/Bed: /4 Admit/Disch: 02/09/19 06:12:00 - Institution: [facility] Main OR PACU I Case Times Entry 1 In PACU I 02/09/19 09:28:00 Ready for PACU 02/09/19 10:32:00 Discharge Discharge from PACU 02/09/19 10:32:00 I Last Modified By: SONDRAVERÓNICA RN 02/09/19 10:42:24 [facility] Main OR PACU I Case Times Audit 02/09/19 10:42:24 Professor Of Languages: [id number] Modifier: [id number] <+> 1 Ready for PACU Discharge <+> 1 Discharge from PACU I Finalized By: VERÓNICA AMARO RN Document Signatures Signed By: VERÓNICA AMARO RN 02/09/19 10:42 documented in this encounter Plan of Treatment Not on file documented as of this encounter Visit Diagnoses Not on filedocumented in this encounter
--- OUTSIDE RECORDS SUMMARY | 2025-07-12 14:53 | XMS_ITS | Clinical Summary ---
Author Organization [facility] Address [address] [place] [address] Care Team Providers Care Windows Software Developer Name Role Phone Kojo Vu Primary Care Provider [phone] Skinny Massey MD Unavailable [phone] Allergies Active Allergy Reactions Criticality Noted [...] (04/19/2019): Added automatically from request for surgery [id number] Social History Tobacco Use Types Packs/Day Years [...] Done Comments Tobacco Cessation Counseling 1958 Lipid Monitoring 1963 Tetanus Vaccination (Every 10 Years) 1964 Pneumococcal Vaccine: 50+ Years (1 of 2 - PCV) 966 Hepatitis C Virus (HCV) Screening 1967 Zoster-RZV(Shingrix) (1 of 2) 1996 Fall Risk Assessment 2011 RSV Vaccines (1 - 1-dose 75+ series) 2021 Advance Care Planning 09/15/2024 Depression Screening 09/15/2024 COVID-19 Vaccine (1 - 2023-25 season) 2025 Influenza Vaccination (#1) 2025 Insurance MEDICARE ANTHEM MEDICARE PART A [facility] [address] [place] [id number] ANTHEM MEDICARE ANTHEM Care Teams Windows Software Developer Relationship Specialty Start Date End Date Kojo Vu [address] [place] [address] PCP - General 09/18/18 Skinny Massey MD [address] [place] [id number] Urology 09/22/22
--- OUTSIDE RECORDS SUMMARY | 2025-07-12 14:53 | XMS_ITS | Encounter Summary ---
Author Organization [employer] ([place], [place], [place], [place]) Address [address] [place] [address] Care Team Providers Care Manager Background Name Role Phone Unavailable Primary Care Provider Unavailabl e Encounter Details Date Type Department Care Team (Late st Contact Info) Description 02/09/2019 Transcribed Document [facility] [place] [address] [place] [address] ProviderSoham MD [address] [place] [address] Social History Tobacco Use Types [...] and water are not available, use hand monumental stonemason. ? Change your dressing as told by [...] or a bad smell. Medicines ??? Take ezlg-vew-zlqwxvs and prescription medicines only as told by [...] 12/22/2016 Document Revised: 04/09/2018 Document Reviewed: 12/22/2016 [employer] Interactive Patient Education ? 2019 [employer] Urology Indwelling Urinary Catheter Care, Adult [...] on each side. Do this in a bakaz-gr-tfjd direction. ? If you are male: ? [...] and water are not available, use hand monumental stonemason. ??? Always make sure there are no [...] 09/01/2006 Document Revised: 04/17/2018 Document Reviewed: 04/17/2018 [employer] Interactive Patient Education ? 2019 [employer] Prostate Laser Surgery, Care After This [...] clear or pale yellow. Medicines ??? Take sajc-bnr-cevydca and prescription medicines, including stool softeners, only [...] 09/01/2006 Document Revised: 04/18/2017 Document Reviewed: 04/18/2017 [employer] Interactive Patient Education ? 2019 [employer] documented in this encounter Plan of Treatment Not on file documented as of this encounter Visit Diagnoses Not on filedocumented in this encounter
--- NOTE | 2025-07-12 14:54 | CT_ITS ---
FINAL REPORT TECHNIQUE: thin section axial CT with and without IV contrast supplemented with multiplanar 3-D reconstruction of the head. This study was performed with techniques to keep radiation doses as low as reasonably achievable, (ALARA)individualized dose reduction techniques using automated exposure control or adjustment of mA and/or kV according to the patient's size were employed. CLINICAL HISTORY: Stroke like symptoms- visual disturbances, headach COMPARISON: 11/02/2019 FINDINGS: There are patent A1 segments and anterior communicating artery. There is opacification of both MCA distributions from the left ICA. There is 70% stenosis of the mid left MCA with which lies immediately distal to the origin of the left A1 segment. The basilar artery is patent. IMPRESSION: 70% stenosis in 1 segment. Reviewed, Interpreted and Dictated by Min Castrejon MD Transcribed by Avani Nielson Authenticated and [facility]
--- NOTE | 2025-07-12 14:54 | CT_ITS ---
FINAL REPORT TECHNIQUE: The patient was injected with IV contrast. Axial images were obtained through the chest in a PE protocol. 3-D reconstruction images were also performed. Individualized dose reduction techniques using automated exposure control or adjustment of the MA and/or KV according to patient's size were employed. CLINICAL HISTORY: fall on xarelto; cough COMPARISON: 04/22/2025 FINDINGS: Mediastinal vasculature is adequately opacified. No pulmonary artery filling defects are identified to suggest PE. There is no aortic dissection or aneurysm. There is no axillary adenopathy. There is no hilar or mediastinal adenopathy. The heart size is normal. There is no pericardial or pleural effusion. There are moderate changes of centrilobular emphysema. No suspicious infiltrate or nodule is identified. Limited images of the upper abdomen demonstrate no acute findings. There is a small benign-appearing cyst measuring 9 mm in the left lobe of the liver. IMPRESSION: No pulmonary embolus . No aortic aneurysm or dissection. Reviewed, Interpreted and Dictated by Min Castrejon MD Transcribed by Avani Nielson Authenticated and [facility]
--- NOTE | 2025-07-12 14:54 | CT_ITS ---
FINAL REPORT TECHNIQUE: NASCET technique utilized for stenosis evaluation. CLINICAL HISTORY: Stroke symptoms 4 days ago- visual loss, headache COMPARISON: 11/02/2019 FINDINGS: RIGHT CAROTID: Moderate vascular calcifications. Occlusion of the right internal carotid artery. LEFT CAROTID: Dense vascular calcifications. 60% stenosis of the left proximal internal carotid artery. VERTEBRALS: Calcification at the origin of the right vertebral artery with high-grade stenosis. Left vertebral artery is not opacified and appears occluded. IMPRESSION: Completely occluded right ICA. Dense vascular calcifications of the left carotid bifurcation with 60% stenosis at the origin. High-grade stenosis of the origin of the right vertebral artery. Occluded left vertebral artery. Reviewed, Interpreted and Dictated by Min Castrejon MD Transcribed by Avani Nielson Authenticated and [facility]
--- OUTSIDE RECORDS SUMMARY | 2025-07-12 14:54 | XMS_ITS | Encounter Summary ---
[facility] Address [address] [place] [address] Care Team Providers Care Business Analysis Analyst Name Role Phone Cheko Heredia MD Primary Care Provider + Encounter Details Date Type Department Care Team (Late st Contact Info) Description 10/24/2014 External CPT II LICENSED PRACTICAL VOCATIONAL NURSE - [employer] [facility] Social History Tobacco [...] Description 09/12/2025 3:00 PM EST Office Visit [facility] [address] [place] [address] Cheko Heredia MD [address] [place] [address] 12/12/2025 2:15 PM EDT Office Visit [facility] [address] [place] [address] Cheko Heredia MD [address] [place] [address] Scheduled Procedures Name Priority Associated Diagnoses Date/Ti me ABLATION A-FIB Atrial fibrillation with RVR Cardiomyopathy, dilated, nonischemic Essential hypertension documented as of this encounter Visit Diagnoses Not on filedocumented in this encounter Care Teams Business Analysis Analyst Relationship Specialty Start Date End Date Cheko Heredia MD [address] [place] [address] PCP - General Family Medicine 01/10/22 documented as of this encounter
--- OUTSIDE RECORDS SUMMARY | 2025-07-12 14:54 | XMS_ITS | Encounter Summary ---
[facility] Address [address] [place] [address] Care Team Providers Care Management Professionals Name Role Phone Cheko Heredia MD Primary Care Provider + Reason for Visit * Reason Comments Med Refill Encounter Details Date Type Department Care Team (Late Contact Info) Description 06/21/2025 Refill [facility] [address] [place] [address] Cheko Heredia MD [address] [place] [address] Type 2 diabetes mellitus without complication, without long-term current use of insulin Social [...] Industry Job Start Date Job End Date [employer] Not on file Not on file Not on file documented as of this encounter Plan of Treatment Upcoming Encounters Date Type Department Care Team (Late Contact Info) Description 09/12/2025 3:00 PM EST Office Visit [facility] [address] [place] [address] Cheko Heredia MD [address] [place] [address] 12/12/2025 2:15 PM EDT Office Visit [facility] [address] [place] [address] Cheko Heredia MD [address] [place] [address] Scheduled Procedures Name Priority Associated Diagnoses Date/Ti me ABLATION A-FIB Atrial fibrillation with RVR Cardiomyopathy, dilated, nonischemic Essential hypertension documented as of this encounter Visit Diagnoses Diagnosis Type 2 diabetes mellitus without complication, without long-term current use of insulin documented in this encounter Care Teams Management Professionals Relationship Specialty Start Date End Date Cheko Heredia MD [address] [place] [address] PCP - General Family Medicine 01/10/22 documented as of this encounter
--- OUTSIDE RECORDS SUMMARY | 2025-07-12 14:54 | XMS_ITS | Clinical Summary ---
Author Organization [facility] [place] Address [address] [place] [address] Phone Care Team Providers Care Music Researcher Name Role Phone Unavailable Primary Care Provider Unavailabl e Allergies Active Allergy Reactions Criticality Noted Date Comments Sulfa (Sulfonamide Antibiotics) Other (See Comments) 04/15/2019 Medications XARELTO 20 mg Oral Tablet TAKE 1 TABLET BY MOUTH DAILY WITH DINNER 06/26/2021 Active tamsulosin (FLOMAX) 0.4 mg Oral Capsule Take 0.4 mg by mouth nightly. 07/16/2021 Active bumetanide (BUMEX) 1 mg Oral Tablet Take 1 mg by mouth daily. 07/18/2021 Active pantoprazole (PROTONIX) 40 mg Oral Tablet, Delayed Release (E.C.) Take 1 Tablet by mouth daily. 30 Tablet 2 08/08/2021 Active oxyCODONE-aceta minophen (PERCOCET) 5-325 mg Oral TabletIndicatio ns:pain Take 1 Tablet by mouth 3 times daily as needed for Chronic Pain (G89.29). Indications: pain Active docusate sodium (COLACE) 100 mg Oral Capsule Take 100 mg by mouth 2 times daily. Active diazePAM (VALIUM) 5 mg Oral TabletIndicatio ns:anxiety Take 5 mg by mouth 3 times daily as needed for Anxiety. Indications: anxious Active ranolazine (RANEXA) 500 mg Oral Tablet Sustained Release 12 hr Take 500 mg by mouth 2 times daily. 06/28/2022 Active atorvastatin (LIPITOR) 10 mg Oral Tablet Take 10 mg by mouth daily. 02/13/2022 Active DULoxetine (CYMBALTA) 60 mg Oral Capsule, Delayed Release(E.C.) Take 60 mg by mouth daily. 06/20/2022 Active Cholecalciferol , Vitamin D3, (VITAMIN D3) 25 mcg (1,000 [...] 6 hours as needed for Wheezing. Active cyclobenzaprine (FLEXERIL) 10 mg Oral Tablet Take 10 mg by mouth 2 times daily as needed for Muscle spasms. Active FLUoxetine (PROZAC) 20 mg Oral Capsule Take by mouth daily. Active tiotropium (SPIRIVA) 18 mcg Inhl Capsule, w/Inhalation Device Inhale 18 mcg into the lungs daily. Active JARDIANCE 10 mg Oral Tablet Take 10 mg by mouth daily. 09/17/2024 Active amiodarone (PACERONE) 200 mg Oral Tablet Take 0.5 Tablets by mouth daily. 09/28/2024 Active nitroGLYCERIN (NITROSTAT) 0.4 mg SL Tablet, Sublingual Place 0.4 mg under the tongue every 5 minutes as needed. for chest pain. Use up to 3 doses. If no relief, go to ER. 03/28/2025 Active CREON 36,000-114,000- 180,000 unit Oral Capsule, Delayed Release(E.C.) 03/29/2025 Activ e MOVANTIK 12.5 mg Oral Tablet 03/29/2025 Acti ve Active Problems Problem Noted Date Diagnosed Date Persistent atrial fibrillation 06/24/2025 Orthostatic hypotension 05/10/2025 Chronic pain disorder 01/10/2022 S/P ablation of atrial fibrillation 08/13/2021 CHF (congestive heart failure) 08/12/2021 Type 2 diabetes mellitus 08/12/2021 Tobacco abuse 08/12/2021 Bilateral carotid artery stenosis 08/12/2021 Atrial fibrillation with rapid ventricular respo nse 08/06/2021 Overview (08/06/2021): Added automatically from request for surgery [id number] Hypertension 07/27/2021 CAD (coronary artery disease) 07/27/2021 Mixed anxiety depressive disorder 05/08/2020 Cardiomyopathy, dilated, nonischemic 10/17/2016 GERD (gastroesophageal reflux disease) 6 Arthritis 01/30/2016 Hyperlipidemia 01/30/2016 Resolved Problems Problem Noted Date Diagnosed Date Resolved Date SOB (shortness of breath) 08/13/2021 Elevated troponin 08/13/2021 07/10/2022 Acute chest pain 08/12/2021 07/10/2022 Paroxysmal atrial fibrillation 07/27/2021 06/24/2025 Assessment & Plan (09/28/2024 2:17 PM EST): Orders: POCT EKG Encounters Date Type Department Care Team Description 06/30/2025 Orders Only [facility] [address] [place] [address] [address] [place] [address] Maribel Garcias APRN Other persistent atrial fibrillation (HCC) (Primary Dx) 06/24/2025 Orders Only Structural Hrt/Valve [address] [place] [address] [address] [place] [phone] Renetta Conklin RN Persistent atrial fibrillation (HCC) (Primary Dx) 06/16/2025 4:09 PM EDT - 06/16/2025 11:59 PM EDT Hospital Encounter [facility] [address] [place] [address] [address] [place] [address] Edis Garza MD Paroxysmal atrial fibrillation (HCC); Atrial fibrillation with rapid ventricular response (HCC); Cardiomyopathy, dilated, nonischemic (HCC) Discharge Disposition: Home or Self Care 06/06/2025 Telephone [facility] [address] [place] [address] [address] [place] [address] Edis Garza MD Other 05/17/2025 Telephone Structural Hrt/Valve [address] [place] [address] [address] [place] [address] Renetta Conklin RN Other 05/10/2025 10:45 AM EDT [place] [address] Chris Manzanares MD Orthostatic hypotension (Primary Dx) 04/19/2025 Telephone Structural Hrt/Valve [address] [place] [address] [address] [place] [address] Renetta Conklin RN Other from Last 3 Months Surgical History Surgery [...] carotid artery. Coronary artery disease invo lving [place] coronary artery of [place] heart without angina pectoris 01/30/2016 Hyperlipemia Arthritis [...] Sign Reading Time Taken Comments Blood Pressure 82/50 05/10/2025 10:38 AM EDT Pulse 67 05/10/2025 10:38 AM EDT Temperature 36.4 C (97.5 F) 08/14/2021 12:22 PM EST Respiratory Rate 16 08/14/2021 12:22 PM EST Oxygen Saturation 95% 05/10/2025 10:38 AM EDT Inhaled Oxygen Concentration - - Weight 90.3 kg (199 lb) 05/10/2025 10:38 AM EDT Height 180.3 cm (5' 11 ) 05/10/2025 10:38 AM EDT Body Mass Index 27.75 05/10/2025 10:38 AM EDT Plan of Treatment Upcoming Encounters Date Type Department Care Team (Latest Contact Info) Description 07/25/2025 11:30 AM EST Hospital Encounter [facility] [employer] [facility]AG[employer] PARTNER [facility] [place] [address] Edis Garza MD [address] [place] [address] [place] [address] Persistent atrial fibrillation (HCC) 07/25/2025 11:30 AM EST - 07/25/2025 1:00 PM EST Surgery [employer] [facility] [place] [address] Edis Garza MD [address] [place] [address] [place] [address] LEFT ATRIAL APPENDAGE CLOSURE (WATCHMAN) Health Maintenance Due Date Last Done Comments Wellness Exam Medicare 1948 Diabetic Eye Exam 1964 Hepatitis C Screening 1964 Kidney Health: uACR 1964 Zoster (1 of 2) 1996 DTaP/TDaP/Td (1 - Tdap) 11/19/1996 11/18/1996 Pneumococcal Vaccine 50+ (2 of 2 - PCV) 09/15/2020 09/15/2019, 06/04/2016 RSV or 60+ (1 - 1-dose 75+ series) 2021 Kidney Health: eGFR 08/14/2022 08/14/2021, 08/13/2021, 08/12/2021, Additional history exists Lipids 08/14/2022 08/14/2021 COVID-19 Vaccine ( season) 2025 08/15/2022, 07/20/2021, 11/25/2020, Additional history exists Influenza Vaccine (#1) 2025 3, 07/15/2022, 07/30/2016 Hemoglobin A1c 12/11/2025 06/13/2025, 08/13/2021 Hepatitis B Vaccine Aged Out No longe r eligible based on patient's age to complete this topic Meningococcal B Vaccine Aged Out No l onger eligible based on patient's age to complete this topic Procedures Procedure Name Priority Date/Time Associated Diagnosis Comments BASIC METABOLIC PANEL Early AM 08/14/2021 6:08 AM EST LIPID SCREEN Add-On 08/14/2021 6:08 AM EST HEMOGLOBIN A1C Routine 08/13/2021 6:31 AM EST from Last 3 Months or Most Recently Relevant to Health Maintenance Results * LIPID SCREEN (08/14/2021 6:08 AM EST) Cholesterol 156 <200 mg/dL 08/14/2021 8:44 AM EST [facility] Comment: < 200 Desirable 200 - 239 Borderline High >= 240 High Triglyceride 148 <150 mg/dL 08/14/2021 8:44 AM EST [facility] Comment: < 150 Normal 150 - 199 Borderline High 200 - 499 High >= 500 Very High HDL 41 >=40 mg/dL 08/14/2021 8:44 AM EST [facility] Comment: > 60 Optimal 40 - 60 Acceptable < 40 Low LDL Calculated 89 <100 mg/dL 08/14/2021 8:44 AM EST [facility] Comment: < 100 Optimal 100 - 129 Near or above optimal 130 - 159 Borderline High 160 - 189 High >= 190 Very High Non-HDL-C Calculated 115 <=129 mg/dL 08/14/2021 8:44 AM EST [facility] Comment: <130 Desirable 130-159 Above Desirable 160-189 Borderline High 190-219 High >= 220 Very High Fasting Specimen? 021 8:44 AM EST [facility] Blood VENOUS BLOOD / Unknown Venipuncture / Unknown 08/14/2021 6:08 AM EST 08/14/2021 6:19 AM EST us Eliezer Andujar MD CHEMISTRY ORDERABLES Final Resul t [facility] [address] [facility] , [address] [place] [phone] * (ABNORMAL) BASIC METABOLIC PANEL (08/14/2021 6:08 AM EST) Sodium 141 136 - 145 mmol/L 08/14/2021 6:55 AM EST [facility] Potassium 4.0 3.5 - 5.0 mmol/L 08/14/2021 6:55 AM EST [facility] Chloride 105 98 - 107 mmol/L 08/14/2021 6:55 AM EST [facility] Total CO2 28 22 - 29 mmol/L 08/14/2021 6:55 AM EST [facility] Anion Gap 8 7 - 16 mmol/L 08/14/2021 6:55 AM EST [facility] Calcium 9.3 8.8 - 10.4 mg/dL 08/14/2021 6:55 AM EST [facility] Glucose Lvl 123(H) 82 - 100 mg/dL 08/14/2021 6:55 AM EST [facility] BUN 23 8 - 23 mg/dL 08/14/2021 6:55 AM EST [facility] Creatinine 1.13 0.67 - 1.30 mg/dL 08/14/2021 6:55 AM EST [facility] eGFR (CKD-EPIcr 2020) 68 >=60 mL/min/1.7 3 m2 08/14/2021 6:[address] [facility] Comment:Estimated GFR was ca lculated using the CKD-EPIcr (2020) equation refit without race. The equation is recommended by the National Kidney Foundation - English Society of Nephrology Task Force. Blood VENOUS BLOOD / Unknown Venipuncture / Unknown 08/14/2021 6:08 AM EST 08/14/2021 6:19 AM EST Skip Glover MD (Ronny) CHEMISTRY ORDER ZORAIDA Final Result Performing Organization Address City[facility]/ZIP Co de Phone Number [facility] [address] [place] [address] , [address] [place] [phone] [facility] [address] [place] [phone] * (ABNORMAL) HEMOGLOBIN A1C (08/13/2021 6:31 AM EST) Hgb A1C 6.5(H) 4.2 - 5.6 % 08/13/2021 7:17 AM EST [facility] Est. Avg Glucose 140 mg/dL 08/13/2021 7:17 AM EST [facility] Blood VENOUS BLOOD / Unknown Venipuncture / Unknown 08/13/2021 6:31 AM EST 08/13/2021 6:43 AM EST Narrative [facility] - 08/13/2021 7:17 AM EST REFERENCE RANGE: Normal: 4.0-5.6% Pre-diabetes: 5.7-6.4% Provisional diagnosis of diabetes: >6.4% Hgb F>10% and anything which shortens red cell survival, such as hemolytic anemia, or unstable hemoglobin variants such as HbSS, HbSC, or HbCC, will lower the HbA1c value associated with a given level of glycemic control. Skip Glover MD (Ronny) CHEMISTRY ORDER ZORAIDA Final Result Performing Organization Address [facility]/ZIP Co de Phone Number [facility] [address] [facility] , [place] [address] from Last 3 Months or Most Recently Relevant to Health Maintenance [place] [place] [address] MEDICARE SUPPLEMENT MEDICARE [place] PART A [place] B MEDICARE [place] B MEDICARE SUPPLEMENT Advance Directives For more information, please contact: [phone] * Full Code (Latest Code Status on File) Date Activated Date Inactivated Comments 08/12/2021 8:49 PM 08/14/2021 8:54 PM
--- OUTSIDE RECORDS SUMMARY | 2025-07-12 14:54 | XMS_ITS | Referral Summary ---
Author Organization [employer] ([place], [place], [place], [place]) Address [address] [place] [address] Care Team Providers Care Air Tester Name Role Phone Unavailable Primary Care Provider [...]
--- OUTSIDE RECORDS SUMMARY | 2025-07-12 14:54 | XMS_ITS | Encounter Summary ---
[facility] Address [address] [place] [address] Care Team Providers Care Manager Retirement Name Role Phone Cheko Heredia MD Primary Care Provider + Encounter Details Date Type Department Care Team (Late st Contact Info) Description 12/12/2014 External CPT II [facility] Social History Tobacco Use [...] 09/12/2025 3:00 PM EST Office Visit [facility] [address] [place] [address] Cheko Heredia MD [address] [place] [address] 12/12/2025 2:15 PM EDT Office Visit [facility] [address] [place] [address] Cheko Heredia MD [address] [place] [address] Scheduled Procedures Name Priority Associated Diagnoses Date/Ti me ABLATION A-FIB Atrial fibrillation with RVR Cardiomyopathy, dilated, nonischemic Essential hypertension documented as of this encounter Visit Diagnoses Not on filedocumented in this encounter Care Teams Manager Retirement Relationship Specialty Start Date End Date Cheko Heredia MD [address] [place] [address] PCP - General Family Medicine 01/10/22 documented as of this encounter
--- OUTSIDE RECORDS SUMMARY | 2025-07-12 14:54 | XMS_ITS | Encounter Summary ---
[facility] Address [address] [place] [address] Care Team Providers Care Rubber Heel And Sole Press Tender Name Role Phone Cheko Heredia MD Primary Care Provider + Reason for Visit * Reason Onset Date Comments Med Refill 05/17/2025 Encounter Details Date Type Department Care Team (Late st Contact Info) Description 05/17/2025 Telephone [facility] [address] [place] [address] Cheko Heredia MD [address] [place] [address] Med Refill Social History Tobacco Use Types Packs/Day Years [...] Industry Job Start Date Job End Date [employer] Not on file Not on file Not on file documented as of this encounter Miscellaneous Notes * Telephone Encounter - Alina Flores PCT - 05/17/2025 9:12 AM EDT Caller: Mino Hsu Relationship: Self Best call back number: [phone] Requested Prescriptions: Requested Prescriptions No prescriptions requested or ordered in this encounter oxyCODONE-acetaminophen (PERCOCET) 5-325 MG per tablet Pharmacy where request should be sent: REPLACED BY [facility] - [place] [facility] [place] - [address] [phone] [facility] [phone] Last office visit with prescribing clinician: 03/11/2025 [...] leave a voicemail: [] Yes [x] No GREGG Balbuena 05/17/25 09:13 EDT documented in this encounter Plan of Treatment Upcoming Encounters Date Type Department Care Team (Late st Contact Info) Description 09/12/2025 3:00 PM EST Office Visit [facility] [address] [place] [phone] Cheko Heredia MD [address] [place] [address] 12/12/2025 2:15 PM EDT Office Visit [facility] [address] [place] [phone] Cheko Heredia MD [address] [place] [address] Scheduled Procedures Name Priority Associated Diagnoses Date/Ti me ABLATION A-FIB Atrial fibrillation with RVR Cardiomyopathy, dilated, nonischemic Essential hypertension documented as of this encounter Visit Diagnoses Diagnosis Chronic pain syndrome Spondylosis of lumbar region without myelopathy or radiculopathy documented in this encounter Care Teams Rubber Heel And Sole Press Tender Relationship Specialty Start Date End Date Cheko Heredia MD [address] [place] [address] PCP - General Family Medicine 01/10/22 documented as of this encounter
--- OUTSIDE RECORDS SUMMARY | 2025-07-12 14:54 | XMS_ITS | Encounter Summary ---
[facility] Address [address] [place] [address] Care Team Providers Care Junior Business Analyst Name Role Phone Cheko Heredia MD Primary Care Provider + Encounter Details Date Type Department Care Team (Latest Contact Info) Description 06/13/2025 Travel Social History Tobacco Use Types Packs/Day [...] Industry Job Start Date Job End Date [employer] Not on file Not on file Not on file documented as of this encounter Plan of Treatment Upcoming Encounters Date Type Department Care Team (Late st Contact Info) Description 09/12/2025 3:00 PM EST Office Visit [facility] [address] [facility] [place] [address] Cheko Heredia MD [address] [place] [address] 12/12/2025 2:15 PM EDT Office Visit [facility] [address] [place] [phone] Cheko Heredia MD [address] [place] [address] Scheduled Procedures Name Priority Associated Diagnoses Date/Ti me ABLATION A-FIB Atrial fibrillation with RVR Cardiomyopathy, dilated, nonischemic Essential hypertension documented as of this encounter Visit Diagnoses Not on filedocumented in this encounter Care Teams Junior Business Analyst Relationship Specialty Start Date End Date Cheko Heredia MD [address] [place] [address] PCP - General Family Medicine 01/10/22 documented as of this encounter
[2025-07-12 15:25] LABS: Hematocrit 44.7 % (42.0-52.0); Hemoglobin 15.0 g/dL (14.1-18.0); Immature Granulocytes % 0.5 %; Mean Corpuscular HGB Conc 33.6 g/dL (31.8-35.4); Mean Corpuscular Hemoglobin 33.0 pg (27.0-31.2); Mean Corpuscular Volume 98.2 fl (80-94); Nucleated Red Blood Cells % 0 %; Platelet Count 171 K/mm3 (142-424); Red Blood Count 4.55 M/mm3 (4.60-6.20); Red Cell Distribution Width-SD 48.9 fL; White Blood Count 5.5 K/mm3 (4.8-10.8)
[2025-07-12 15:30] LABS: Albumin Level 3.1 g/dl (3.5-5.0); Chloride 101 mmol/L (98-107); Potassium 3.8 mmoL/L (3.5-5.1); Sodium 135 mmol/L (136-145)
[2025-07-12 15:33] LABS: Alanine Aminotransferase 19 U/L (12-78); Albumin/Globulin Ratio 0.9 (1.1-1.8); Alkaline Phosphatase 79 U/L (38-126); Anion Gap 6.8 mEq/L (5-15); Aspartate Amino Transferase 22 U/L (17-59); Bilirubin,Total 0.8 mg/dl (0.2-1.3); Blood Urea Nitrogen 11 mg/dl (9-20); Carbon Dioxide 31 mmol/L (22.0-30.0); Creatinine Clearance Estimated 78 mL/min (50-200); Creatinine,Serum 0.80 mg/dl (0.66-1.25); Estimated Glomerular Filt Rate 93 ml/min (>60); GFR (African American) 113 ML/MIN (>60); Globulin 3.4 g/dL (1.3-3.2); Lipase 28 U/L (23-300); Total Protein,Serum 6.5 g/dl (6.3-8.2)
[2025-07-12 15:34] LABS: Calcium 8.6 mg/dl (8.4-10.2); Glucose 108 mg/dl (74-100)
[2025-07-12] MEDS: IOPAMIDOL-370 (76%);100ML BOTTLE 160 ML IV (15:52)
[2025-07-12] MEDS: 0.9 % SODIUM CHLORIDE 50 ML VIAL 100 ML IV (15:52)
[2025-07-12] MEDS: SODIUM CHLORIDE 0.9% 10ML SYR (RAD ONLY) 10 ML IV (15:52)
[2025-07-12] MEDS: ACETAMINOPHEN 500MG TAB 1000 MG PO (18:23)
== END 2025-07-12 18:38 | disposition home or self-care (01) ==
PROVIDERS: Physician Assistant; Emergency Provider Student in an Organized Health Care Education/Training Program; PCP Family Medicine
DX: J44.1 Chronic obstructive pulmonary disease with (acute) exacerbation (principal); R07.89 Other chest pain; S00.83XA Contusion of other part of head, initial encounter; S50.311A Abrasion of right elbow, initial encounter; F17.210 Nicotine dependence, cigarettes, uncomplicated; I65.21 Occlusion and stenosis of right carotid artery; I66.02 Occlusion and stenosis of left middle cerebral artery; I48.0 Paroxysmal atrial fibrillation; I10 Essential (primary) hypertension; E78.5 Hyperlipidemia, unspecified; W18.30XA Fall on same level, unspecified, initial encounter; Z79.01 Long term (current) use of anticoagulants
CPT/HCPCS: 70450; 70496; 70498; 71275; 72125; 80053; 83690; 85025; 99283; 99285; Q9967

== ENCOUNTER 2025-09-14 12:57 | Outpatient (CLI) | payer MEDICARE, BC, SELFPAY ==
--- OUTSIDE RECORDS SUMMARY | 2025-07-18 14:24 | XMS_ITS | Encounter Summary ---
Author Organization [place] [address] Care Team Providers Care Entry Level Project Engineer Name Role Phone Unavailable Primary Care Provider Unavailabl e Encounter Details Date Type Department Care Team (Latest Contact Info) Description 07/18/2025 2:24 PM EST - 07/18/2025 11:59 PM EST Hospital Encounter [facility] [address] [facility] [place] [address] Other persistent atrial fibrillation (HCC) Discharge Disposition: Home or Self Care [...] every 6 hours as needed for Wheezing. aspirin 81 mg Oral tablet Take 1 Tablet by mouth daily. 07/25/2025 atorvastatin (LIPITOR) 10 mg Oral Tablet Take 10 mg by mouth daily. 02/13/2022 Cholecalciferol, Vitamin D3, (VITAMIN D3) 25 mcg (1,000 unit) Oral Capsule Take 1 Capsule by mouth daily. cyclobenzaprine (FLEXERIL) 10 mg Oral Tablet Take 10 mg by mouth 2 times daily as needed for Muscle spasms. diazePAM (VALIUM) 5 mg Oral TabletIndication s:anxiety Take 5 mg by mouth 3 times daily as needed for Anxiety. Indications: anxious docusate sodium (COLACE) 100 mg Oral Capsule Take 100 mg by mouth 2 times daily. DULoxetine (CYMBALTA) 60 mg Oral Capsule, Delayed Release(E.C.) Take 60 mg by mouth daily. 06/20/2022 fish oil OTC (OMEGA-3 DHA-EPA 300 MG) 300-1,000 mg Oral Capsule, Delayed Release(E.C.) Take 2 g by mouth daily. JARDIANCE 10 mg Oral Tablet Take 10 mg by mouth daily. 09/17/2024 nitroGLYCERIN (NITROSTAT) 0.4 mg SL Tablet, Sublingual Place 0.4 mg under the tongue every 5 minutes as needed. for chest pain. Use up to 3 doses. If no relief, go to ER. 03/28/2025 oxyCODONE-acetam inophen (PERCOCET) 5-325 mg Oral TabletIndication s:pain Take 1 Tablet by mouth 3 times [...] TABLET BY MOUTH DAILY WITH DINNER 06/26/2021 amiodarone (PACERONE) 200 mg Oral Tablet Take 0.5 Tablets by mouth daily. 09/28/2024 07/25/2025 bumetanide (BUMEX) 1 mg Oral Tablet Take 1 mg by mouth daily. 07/18/2021 07/25/2025 CREON 36,000-114,000- 180,000 unit Oral Capsule, Delayed Release(E.C.) 03/29/2025 07/25/2025 FLUoxetine (PROZAC) 20 mg Oral Capsule Take by mouth daily. 07/25/2025 MOVANTIK 12.5 mg Oral Tablet 03/29/2025 07/25/2025 documented as of this encounter Discharge Disposition Disposition Code Departure Means Destination Home or Self Care documented in this encounter Plan of Treatment Upcoming Encounters Date Type Department Care Team (Late st Contact Info) Description 09/16/2025 1:00 PM EST Office Visit [facility] [address] [place] [address] [place] [id number] Glendy Doan, PA [address] [place] [address] DR SANCHEZ [address] [place] [id number] 01/23/2026 11:45 AM EDT Office Visit [facility] [address] [place] [address] [place] [phone] Serene Yun, CAPACITOR INSPECTOR [address] [place] [address] [place] [address] documented as of this encounter Procedures Procedure Name Priority Date/Time Associated Diagnosis Comments CBC WITH DIFF Routine 07/18/2025 2:26 PM EST Other persistent atrial fibrillation (HCC) BASIC METABOLIC PANEL Routine 07/18/2025 2:26 PM EST Other persistent atrial fibrillation (HCC) documented in this encounter Results * (ABNORMAL) BASIC METABOLIC PANEL (07/18/2025 2:26 PM EST) Sodium 140 136 - 145 mmol/L 07/18/2025 9:27 PM EST [facility] Potassium 3.5 3.5 - 5.0 mmol/L 07/18/2025 9:27 PM EST [facility] Chloride 103 98 - 107 mmol/L 07/18/2025 9:27 PM EST [facility] Total CO2 28 22 - 29 mmol/L 07/18/2025 9:27 PM EST [facility] Anion Gap 9 7 - 16 mmol/L 07/18/2025 9:27 PM EST [facility] Calcium 9.3 8.8 - 10.4 mg/dL 07/18/2025 9:27 PM EST [facility] Glucose Lvl 102(H) 70 - 99 mg/dL 07/18/2025 9:27 PM EST [facility] BUN 16 8 - 23 mg/dL 07/18/2025 9:27 PM EST [facility] Creatinine 0.86 0.67 - 1.30 mg/dL 07/18/2025 9:27 PM EST [facility] eGFR (CKD-EPIcr 2020) 89 >=60 mL/min/1.7 3 m2 07/18/2025 9:27 PM EST [facility] Comment:Estimated GFR was ca lculated using the CKD-EPIcr (2020) equation refit without race. The equation is recommended by the [employer] - [place] [employer]ph[employer] Task Force. Blood VENOUS BLOOD / Unknown Venipuncture / Unknown 07/18/2025 2:26 PM EST 07/18/2025 2:26 PM EST us Maribel Garcias CAPACITOR INSPECTOR CHEMISTRY ORDERABLES Final Re sult [facility] [address] [facility] , [address] [place] [id number] * (ABNORMAL) CBC WITH DIFF (07/18/2025 2:26 PM EST) WBC 9.6 3.7 - 10.3 x10(3)/mcL 07/18/2025 9:09 PM EST [facility] RBC 4.61 4.60 - 6.10 x10(6)/mcL 07/18/2025 9:09 PM EST [facility] Hgb 15.1 13.7 - 17.5 g/dL 07/18/2025 9:09 PM EST [facility] Hct 46.4 40.0 - 51.0 % 07/18/2025 9:09 PM EST [facility] MCV 100.7(H) 80.0 - 100.0 fL 07/18/2025 9:09 PM EST [facility] MCH 32.8 26.0 - 34.0 pg 07/18/2025 9:09 PM EST [facility] MCHC 32.5 30.7 - 35.5 g/dL 07/18/2025 9:09 PM EST [facility] RDW 13.7 <=14.9 % 07/18/2025 9:09 PM EST [facility] Platelet 244 155 - 369 x10(3)/mcL 07/18/2025 9:09 PM EST [facility] MPV 9.5 8.8 - 12.5 fL 07/18/2025 9:09 PM EST [facility] Neut Percent 60.4 % 07/18/2025 9:09 PM EST [facility] Comment:Neutrophils equals s egs plus bands Imm Gran% 0.9 % 07/18/2025 9:09 PM EST [facility] Comment:Automated count of m etamyelocytes, myelocytes and promyelocytes. Lymph Percent 29.8 % 07/18/2025 9:09 PM EST [facility] [place] Percent 8.2 % 07/18/2025 9:09 PM EST [facility] Eos Percent 0.5 % 07/18/2025 9:09 PM EST [facility] Baso Percent 0.2 % 07/18/2025 9:09 PM EST [facility] Neut # 5.8 1.6 - 6.1 x10(3)/mcL 07/18/2025 9:09 PM EST [facility] Comment:Neutrophils equals s egs plus bands IMMGRAN# 0.1 0.0 - 0.1 x10(3)/mcL 07/18/2025 9:09 PM EST [facility] Comment:Automated count of m etamyelocytes, myelocytes and promyelocytes. An absolute IG <0.1 is reported as 0.0. Lymph # 2.9 1.2 - 3.9 x10(3)/mcL 07/18/2025 9:09 PM EST [facility] [place] # 0.8 0.3 - 0.9 x10(3)/mcL 07/18/2025 9:09 PM EST [facility] Eos# 0.1 0.0 - 0.5 x10(3)/mcL 07/18/2025 9:09 PM EST [facility] Baso # 0.0 0.0 - 0.1 x10(3)/mcL 07/18/2025 9:09 PM EST [facility] Blood VENOUS BLOOD / Unknown Venipuncture / Unknown 07/18/2025 2:26 PM EST 07/18/2025 2:26 PM EST us Maribel Garcias CAPACITOR INSPECTOR HEMATOLOGY ORDERABLES Final R esult [facility] [address] [facility] , [address] [place] [phone] documented in this encounter Visit Diagnoses Diagnosis Other persistent atrial fibrillation (HCC) documented in this encounter Additional Health Concerns Assessment Noted Time A fall risk assessment has been complete d for the patient 09/28/2024 1:34 PM EST documented as of this encounter
--- OUTSIDE RECORDS SUMMARY | 2025-07-25 09:00 | XMS_ITS | Encounter Summary ---
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 sheath. A 5F pigtail catheter was then introduced into the guide sheath and counterclockwise torque was applied to the sheath to engage the left atrial appendage with the pigtail catheter. The pigtail catheter was then placed in the superior anterior lobe of the LISHA. The guide sheath was then advanced over the pigtail catheter to the base of the superior curve of the LISHA. Contrast was then injected into the left atrial appendage and left atrium to ensure that the sheath was not tenting the LISHA wall. This was used to confirm the largest JORJE measurement of 21 mm for the LISHA ostium in the 0, 45, 90, and 135 degree values. We selected the 27 mm Watchman device based on these measurements. After careful flushing of the Watchman delivery system, the delivery system was then inserted into the guide sheath while maintaining a fluid flush through the delivery system and backflow through the sheath. The delivery system was brought up to the LISHA. After aligning the distal marker band of the sheath and the delivery system and locking the sheath to the delivery system, the delivery system was slowly retracted under fluoroscopy to deploy the Watchman device. Careful assessment for fulfillment of all PASS ( Position [place] Size Stability) criteria was performed. This deployment resulted in the device being deployed in the LISHA. We then disconnected the Watchman device from the delivery system. The delivery cable, system and sheath were all retracted into the right atrium and removed from the body. A figure of 8 suture was placed in the right femoral vein. After removal of the 16F sheath from the right femoral vein, manual pressure was applied until hemostasis was obtained. Heparin was reversed with protamine. CONCLUSIONS: Successful Watchman device implantation for left atrial appendage exclusion, LA angiography, JORJE guided transseptal catherization, and Successful transseptal puncture Edis Garza MD ELECTROPHYSIOLOGY ORDERA BLES Final Result Performing Organization Address [facility] Co de Phone Number [facility] CARDIOLOGY * (ABNORMAL) ACTIVATED CLOTTING TIME LR POC (07/25/2025 11:37 AM EST) [facility] ACT-LR >400(H) 89 - 169 second(s) 07/25/2025 11:43 AM EST [facility] Blood BLOOD SPECIMEN / Unknown 07/25/2025 11:37 AM EST 07/25/2025 11:43 AM EST Edis Garza MD POINT OF CARE TEST ORDER ZORAIDA Final Result Performing Organization Address [facility] de Phone Number [facility] [address] [place] [address] * BB HISTORY CHECK (07/25/2025 9:32 AM EST) [facility] BB HISTORY CHECK (1) No Previous History 07/25/2025 9:53 AM EST [facility] Blood VENOUS BLOOD / Unknown Venipuncture / Unknown 07/25/2025 9:32 AM EST 07/25/2025 9:41 AM EST Edis Garza MD BLOOD BANK ORDERABLES Fi nal Result Performing Organization Address [facility] de Phone Number [facility] [address] [place] [id number] * ANTIBODY SCREEN IGG (07/25/2025 9:32 AM EST) [facility] ABSC IgG Int Negative 07/25/2025 10:42 AM EST [facility] Blood VENOUS BLOOD / Unknown Venipuncture / Unknown 07/25/2025 9:32 AM EST 07/25/2025 9:41 AM EST Edis Garza MD BLOOD BANK ORDERABLES Fi nal Result [facility] [address] [place] [id number] * ABORH (07/25/2025 9:32 AM EST) ABORH Int O POS 07/25/2025 10:33 AM EST [facility] Blood VENOUS BLOOD / Unknown Venipuncture / Unknown 07/25/2025 9:32 AM EST 07/25/2025 9:41 AM EST Edis Garza MD BLOOD BANK ORDERABLES Fi nal Result Performing Organization Address City/[facility]/ZIP Co de Phone Number [facility] [address] [id number] documented in this encounter Visit Diagnoses Diagnosis Persistent atrial fibrillation (HCC)- Primary Atrial fibrillation Persistent atrial fibrillation (HCC) Atrial fibrillation Other persistent atrial fibrillation (HCC) Other persistent atrial fibrillation (HCC) Persistent atrial fibrillation (HCC) Atrial fibrillation documented in this encounter Admitting Diagnoses Diagnosis Persistent atrial fibrillation (HCC) Atrial fibrillation Other persistent atrial fibrillation (HCC) documented in this encounter Administered Medications Inactive Administered Medications - up to 1 most recent administrations Medication Order MAR Action Action Date Dose Rate Site 0.9 % NaCl infusion Intravenous, at 150 mL/hr, CONTINUOUS, Starting on Fri07/24/25 at 0915, Until Fri07/25/25 at 2057, Start 2 hours prior to procedure at 150 mL/hr. If Sodium Bicarbonate drip to infuse, 0.9% Normal Saline to infuse at Keep Open Rate., Pre-op (Floor Meds), Dx: 1. Other persistent atrial fibrillation (HCC)Indications:Other persistent atrial fibrillation (HCC) New Bag 07/25/2025 11:36 AM EST acetaminophen (TYLENOL) tablet 650 mg 650 mg, Oral, EVERY 4 HOURS PRN, Starting on Fri07/25/25 at 1309, Until Fri07/25/25 at 2057, Pain, Headaches, Maximum adult dose of acetaminophen is 4000 mg from all sources in 24 hours., Post-op ondansetron (ZOFRAN) injection 4 mg 4 mg, Intravenous, ONCE PRN, 1 dose, Starting on Fri07/25/25 at 1148, Until Fri07/25/25 at 2057, Nausea, Do not give if patient received granisetron (Kytril) or ondansetron (Zofran) within 4 hours., PACU ondansetron (ZOFRAN-ODT) disintegrating tablet 8 mg 8 mg, Oral, ONCE PRN, 1 dose, Starting on Fri07/25/25 at 1148, Until Fri07/25/25 at 2057, Nausea, Do not give if patient received granisetron (Kytril) or ondansetron (Zofran) within 4 hours., PACU promethazine (PHENERGAN) 12.5 mg in sodium chloride 0.9% 10 mL injection 12.5 mg, Intravenous, PRN, Starting on Fri07/25/25 at 1148, Until Fri07/25/25 at 1946, Nausea, Third Line Antiemetic, For nausea unrelieved by droperidol or pre-op antiemetic. Begin with lowest dose unless otherwise directed. Give remainder of dose if nausea unrelieved in 20 minutes. Not to exceed 25 mg in one hour unless otherwise ordered by Anesthesia Coordinator. VESICANT , PACU promethazine (PHENERGAN) 6.25 mg in sodium chloride 0.9% 10 mL injection 6.25 mg, Intravenous, PRN, Starting on Fri07/25/25 at 1148, Until Fri07/25/25 at 1946, Nausea, Third Line Antiemetic, For nausea unrelieved by droperidol or pre-op antiemetic. Begin with lowest dose unless otherwise directed. Give remainder of dose if nausea unrelieved in 20 minutes. Not to exceed 25 mg in one hour unless otherwise ordered by Anesthesia Coordinator. VESICANT , PACU sodium chloride 0.9% IV line flush 20-50 mL 20-50 mL, Intravenous, at 150-600 mL/hr, PRN, Starting on Fri07/25/25 at 1156, Until Fri07/25/25 at 2057, Line Care, Flush with a minimum of 20 mL after IVPB to insure complete administration of the dose. May use the saline infusion to back flush IVPB tubing as needed. sodium chloride 0.9% syringe Intravenous, EVERY 12 HOURS SCHEDULED (2 times per day), First dose on Fri07/25/25 at 1200, Until Discontinued, Flush with 3-5 mL saline for PERIPHERAL saline lock maintenance. sodium chloride 0.9% syringe Intravenous, PRN, Starting on Fri07/25/25 at 1156, Until Fri07/25/25 at 2057, Line Care, Flush with 5-10 mL saline pre/post IVP, and 5 mL prior to IVPB or blood product administration. documented in this encounter Discontinued Medications Medication Sig Discontinue Reason Start Date End Da te bumetanide (BUMEX) 1 mg Oral Tablet Take 1 mg by mouth daily. Patient Reported not taking medication 07/18/2021 07/25/2025 CREON 36,000-114,000- 180,000 unit Oral Capsule, Delayed Release(E.C.) Patient Reported not taking medication 03/29/2025 07/25/2025 MOVANTIK 12.5 mg Oral Tablet Patient Reported not taking medication 03/29/2025 07/25/2025 FLUoxetine (PROZAC) 20 mg Oral Capsule Take by mouth daily. Patient Reported not taking medication 07/25/2025 amiodarone (PACERONE) 200 mg Oral Tablet Take 0.5 Tablets by mouth daily. Patient Reported not taking medication 09/28/2024 07/25/2025 documented as of this encounter Active and Recently Administered Medications Times are shown in EST. Scheduled Medication Order 07/23/2025 07/24/2025 07/25/2025 ceFAZolin (ANCEF) 2 g in sterile water 20 mL IVP (COMPLETED) 2 g, Intravenous, ONCE PREPROCEDURE, 1 dose, On Fri07/25/25 at 0645, To be infused upon entering procedure room for weight greater than or equal to (>=) 80 kg and less than (<) 120 kg Draw up 5.5 mL of Sterile Water for Injection and inject into one ceFAZolin 2 g vial. Shake vials until powder is completely dissolved. Then further dilute to a total volume of 20 mL for IV push administration. Administer intravenous push (IVP) over a period of 3 to 5 minutes., Reason for Therapy: Surgical Prophylaxis, Pre-Procedure(Cath), Dx: 1. Other persistent atrial fibrillation (HCC) 1122 (New Bag - Prov ider: Sheron Fuentes CRNA) sodium chloride 0.9% syringe Intravenous, EVERY 12 HOURS SCHEDULED (2 times per day), First dose on Fri07/25/25 at 1200, Until Discontinued, Flush with 3-5 mL saline for PERIPHERAL saline lock maintenance. 1200 (Due) Continuous Medication Order 07/23/2025 07/24/2025 07/25/2025 0.9 % NaCl infusion Intravenous, at 150 mL/hr, CONTINUOUS, Starting on Fri07/24/25 at 0915, Until Fri07/25/25 at 205, Start 2 hours prior to procedure at 150 mL/hr. If Sodium Bicarbonate drip to infuse, 0.9% Normal Saline to infuse at Keep Open Rate., Pre-op (Floor Meds), Dx: 1. Other persistent atrial fibrillation (HCC) 0935 (New Bag - Prov ider: Won Galvan RN)1135 (IV Paused - Provider: Sheron Fuentes CRNA - Comment: Switch to gravity)1136 (New Bag - Provider: Sheron Fuentes CRNA)1400 (Stopped - Provider: Won Galvan RN) PRN Medication Order 07/23/2025 07/24/2025 07/25/2025 acetaminophen (TYLENOL) tablet 650 mg 650 mg, Oral, EVERY 4 HOURS PRN, Starting on Fri07/25/25 at 1309, Until Fri07/25/25 at 205, Pain, Headaches, Maximum adult dose of acetaminophen is 4000 mg from all sources in 24 hours., Post-op dimenhyDRINATE (DRAMAMINE) 12.5-50 mg in sodium chloride 0.9% injection 12.5-50 mg, Intravenous, PRN, Starting on Fri07/25/25 at 1148, Until Fri07/25/25 at 1947, Nausea, Second Line Antiemetic, For nausea unrelieved by pre-op or other antiemetic. Begin with lowest dose unless otherwise directed. Give remainder of dose if nausea unrelieved in 20 minutes. May give total of two doses if needed. dilute each 50 mg with 10 mL 0.9% saline for IV use, PACU droPERidol (INAPSINE) injection 0.625 mg 0.625 mg, Intravenous, PRN, Starting on Fri07/25/25 at 1148, Until Fri07/25/25 at 1947, Nausea, If unable to give zofran. Give second dose if nausea unrelieved in 10 minutes. May give total of two doses if needed., PACU fentaNYL (SUBLIMAZE) injection 50 mcg 50 mcg, Intravenous, EVERY 5 MIN PRN, Starting on Fri07/25/25 at 1148, Until Fri07/25/25 at 194, Pain, For initial pain. Maximum dose not to exceed 100 mcg., PACU heparin (porcine) 1,000 Units in sodium chloride 0.9 % 1,000 mL IRRIGATION (CANCELED) INTRAPROCEDURE, Starting on Fri07/25/25 at 1056, Until Fri07/25/25 at 1153, Intra-procedure(Cath) 1056 (Given - Provid er: Edis Garza MD)1119 (Given - Provider: Edis Garza MD) heparin 2 units/ml in 0.9% NaCl 500 mL (CANCELED) INTRAPROCEDURE, Starting on Fri07/25/25 at 1119, Until Fri07/25/25 at 1153, Intra-procedure(Cath) 1119 (Given - Provid er: Edis Garza MD) lidocaine-EPINEPHrine injection (CANCELED) INTRAPROCEDURE, Starting on Fri07/25/25 at 1129, Until Fri07/25/25 at 1153, Intra-procedure(Cath) 1129 (Given - Provid er: Edis Garza MD) ondansetron (ZOFRAN) injection 4 mg(Linked Group 1) 4 mg, Intravenous, ONCE PRN, 1 dose, Starting on Fri07/25/25 at 1148, Until Fri07/25/25 at 205, Nausea, Do not give if patient received granisetron (Kytril) or ondansetron (Zofran) within 4 hours., PACU ondansetron (ZOFRAN-ODT) disintegrating tablet 8 mg(Linked Group 1) 8 mg, Oral, ONCE PRN, 1 dose, Starting on Fri07/25/25 at 1148, Until Fri07/25/25 at 205, Nausea, Do not give if patient received granisetron (Kytril) or ondansetron (Zofran) within 4 hours., PACU promethazine (PHENERGAN) 12.5 mg in sodium chloride 0.9% 10 mL injection(Linked Group 2) 12.5 mg, Intravenous, PRN, Starting on Fri07/25/25 at 1148, Until Fri07/25/25 at 1947, Nausea, Third Line Antiemetic, For nausea unrelieved by droperidol or pre-op antiemetic. Begin with lowest dose unless otherwise directed. Give remainder of dose if nausea unrelieved in 20 minutes. Not to exceed 25 mg in one hour unless otherwise ordered by Anesthesia Coordinator. VESICANT , PACU promethazine (PHENERGAN) 6.25 mg in sodium chloride 0.9% 10 mL injection(Linked Group 2) 6.25 mg, Intravenous, PRN, Starting on Fri07/25/25 at 1148, Until Fri07/25/25 at 194, Nausea, Third Line Antiemetic, For nausea unrelieved by droperidol or pre-op antiemetic. Begin with lowest dose unless otherwise directed. Give remainder of dose if nausea unrelieved in 20 minutes. Not to exceed 25 mg in one hour unless otherwise ordered by Anesthesia Coordinator. VESICANT , PACU sodium chloride 0.9% IV line flush 20-50 mL 20-50 mL, Intravenous, at 150-600 mL/hr, PRN, Starting on Fri07/25/25 at 1156, Until Fri07/25/25 at 2057, Line Care, Flush with a minimum of 20 mL after IVPB to insure complete administration of the dose. May use the saline infusion to back flush IVPB tubing as needed. sodium chloride 0.9% syringe Intravenous, PRN, Starting on Fri07/25/25 at 1156, Until Fri07/25/25 at 2057, Line Care, Flush with 5-10 mL saline pre/post IVP, and 5 mL prior to IVPB or blood product administration. Linked Groups Order Group 1: ondansetron (ZOFRAN) injection 4 mgJump to med 4 mg, Intravenous, ONCE PRN, 1 dose, Starting on Fri07/25/25 at 1148, Until Fri07/25/25 at 2057, Nausea, Do not give if patient received granisetron (Kytril) or ondansetron (Zofran) within 4 hours., PACU Or ondansetron (ZOFRAN-ODT) disintegrating tablet 8 mgJump to med 8 mg, Oral, ONCE PRN, 1 dose, Starting on Fri07/25/25 at 1148, Until Fri07/25/25 at 2057, Nausea, Do not give if patient received granisetron (Kytril) or ondansetron (Zofran) within 4 hours., PACU Group 2: promethazine (PHENERGAN) 6.25 mg in sodium chloride 0.9% 10 mL injectionJump to med 6.25 mg, Intravenous, PRN, Starting on Fri07/25/25 at 1148, Until Fri07/25/25 at 1947, Nausea, Third Line Antiemetic, For nausea unrelieved by droperidol or pre- op antiemetic. Begin with lowest dose unless otherwise directed. Give remainder of dose if nausea unrelieved in 20 minutes. Not to exceed 25 mg in one hour unless otherwise ordered by Anesthesia Coordinator. VESICANT , PACU Or promethazine (PHENERGAN) 12.5 mg in sodium chloride 0.9% 10 mL injectionJump to med 12.5 mg, Intravenous, PRN, Starting on Fri07/25/25 at 1148, Until Fri07/25/25 at 1947, Nausea, Third Line Antiemetic, For nausea unrelieved by droperidol or pre- op antiemetic. Begin with lowest dose unless otherwise directed. Give remainder of dose if nausea unrelieved in 20 minutes. Not to exceed 25 mg in one hour unless otherwise ordered by Anesthesia Coordinator. VESICANT , PACU documented in this encounter Orders Medications Ordered That Eduardo ht Not Have Been Administered Count Last Ordered Date First Ordered Date acetaminophen (TYLENOL) tablet 650 mg 1 06/2025 dimenhyDRINATE (DRAMAMINE) 1 2.5-50 mg in sodium chloride 0.9% injection 1 07/25/2025 droPERidol (INAPSINE) injection 0.625 mg 1 07/25/2025 fentaNYL (SUBLIMAZE) injection 50 mcg 1 06/2025 heparin (porcine) 1,000 Unit s in sodium chloride 0.9 % 1,000 mL IRRIGATION 1 07/25/2025 heparin 2 units/ml in 0.9% NaCl 500 mL 1 lidocaine-EPINEPHrine injection 1 ondansetron (ZOFRAN) injection 4 mg 1 07/25 ondansetron (ZOFRAN-ODT) dis integrating tablet 8 mg 1 07/25/2025 promethazine (PHENERGAN) 12. 5 mg in sodium chloride 0.9% 10 mL injection 1 07/25/2025 promethazine (PHENERGAN) 6.2 5 mg in sodium chloride 0.9% 10 mL injection 1 07/25/2025 sodium chloride 0.9% IV line flush 20-50 mL 1 07/25/2025 sodium chloride 0.9% syringe 2 07/25/2025 ceFAZolin (ANCEF) 2 g in vikki rile water 20 mL IVP 1 07/24/2025 Admission Count Last Ordered Date First Orde red Date ADMIT 1 07/25/2025 Discharge Count Last Ordered Date First Orde red Date DISCHARGE PATIENT 1 07/25/2025 documented in this encounter Additional Health Concerns Assessment Noted Time A fall risk assessment has been complete d for the patient 09/28/2024 1:34 PM EST documented as of this encounter
--- OUTSIDE RECORDS SUMMARY | 2025-07-25 11:07 | XMS_ITS | Encounter Summary ---
Author [place] [address] Care Team Providers Care Supervisor Drying Name Role Phone Unavailable Primary Care Provider Unavailabl e Reason for Visit * Auth/Cert/Inpt Specialty Diagnoses / Procedures Referred By Contac t Referred To Contact Diagnoses Persistent atrial fibrillation (HCC) Persistent atrial fibrillation (HCC) [I48.19] Procedures DC PERQ CLSR TCAT L ATR APNDGE W/ENDOCARDIAL IMPLNT Left Atrial Appendage Occlusion with Transesophageal Echocardiogram Referral ID Status Reason Start Date Expiration Date Visits Re quested Visits Authorized [id number] 1 1 Encounter Details Date Type Department Care Team (Late st Contact Info) Description 07/25/2025 11:07 AM EST - 07/25/2025 12:37 PM EST Surgery [facility] [place] [address] Edis Garza MD [address] [place] [address] [place] [id number] LEFT ATRIAL APPENDAGE CLOSURE (WATCHMAN) Surgery Details Date/Time Status Location OR Service Patient Class Case Class Case Type Trauma Case? 07/25/2025 11:07 AM Posted [facility] CARDIAC HOLE DIGGER IMAGING [facility] EP [facility] 1 Cardiac Surgery Admit Elective Panel 1 Procedure LRB Anes Op Region Wound Class Comments LEFT ATRIAL APPENDAGE CLOSURE (WATCHMAN) N/A General Clean Left Atrial Appendage Occlusion with Transesophageal Echocardiogram Surgeon Surgeon Role Service Panel Edis Garza MD Primary Cardiac 1 Butch Recinos MD Assisting Cardiac 1 documented in this encounter Social History Tobacco Use Types Packs/Day Years [...] Sign Reading Time Taken Comments Blood Pressure 124/76 07/25/2025 12:30 PM EST Pulse 74 07/25/2025 12:30 PM EST Temperature 36.2 C (97.2 F) 07/25/2025 11:57 AM EST Respiratory Rate 16 07/25/2025 12:30 PM EST Oxygen Saturation 96% 07/25/2025 12:30 PM EST Inhaled Oxygen Concentration - - Weight 89.1 kg (196 lb 8 oz) 07/25/2025 9:19 AM EST Height 180.3 cm (5' 11 ) 07/25/2025 9:19 AM EST Body Mass Index 27.41 07/25/2025 9:19 AM EST documented in this encounter Discharge Summaries * Maribel Garcias APRN - 07/25/2025 12:46 PM EST [facility] Discharge Summary Patient Name: Mino Hsu [...] Watchman device and JORJE. Patient admitted to [facility] post-procedure and did well without any acute [...] 2 g Refills: 0 Commonly known as: [place]-3 DHA-EPA 300 mg JARDIANCE 10 mg Tab [...] CREON 36,000-114,000- 180,000 unit Cpdr Generic drug: ulhfco-thtzzggx-owhylpv (pork) FLUoxetine 20 mg Cap Commonly known [...] mg daily tomorrow Follow Up: Serene Yun, ITALIAN LECTURER [address] [place] [place] [address] Follow up on 09/12/2025 at 11:45 am Signed: Maribel Garcias APRN 07/25/2025 1:21 PM Cosigned by Edis Garza MD at 07/25/2025 1:35 PM EST documented in this encounter Discharge Instructions * Discharge Instructions* Won Galvan RN - 07/25/2025 12:45 PM EST Watchman Discharge Instructions Please follow these instructions carefully and call [facility] with any questions or concerns. AFTER YOU [...] stops, lay flat for 2 hours. Call [facility] as soon as you can. Call 911 right away if you have heavy bleeding or bleeding does not stop. FOLLOW UP APPOINTMENTS: Follow up at [facility] in [place] about 6 weeks after your procedure. This [...] Navigator for Structural Heart: Renetta VALENCIA Office: [facility] [address] [place] [address] , [address] Discharge Instructions - Following Sedation A [...] Means Destination Comment s Home or Self Senior Care documented in this encounter Progress Notes * [...] have been discussed with patient and/or legal uniforms sales representative. The patient's immediate pre-procedural physical assessment [...] sodium chloride 0.9 % 1,000 mL (07/25/25 2944) Past Surgical History Surgical History[3] Allergy Allergies[4] [...] internal carotid artery. Coronary artery disease involving eastern shoshone coronary artery of eastern shoshone heart without angina pectoris 01/30/2016 Depression GERD (gastroesophageal reflux disease) Hyperlipemia Hypertension Lumbosacral radiculopathy Paroxysmal atrial fibrillation (HCC) 07/27/2021 Pleural effusion 09/01/2016 Spondylolisthesis Systolic HF (heart failure) ([facility] [...] PLACEMENT x 4 total (2002, 2005, 2007, 2016) CYSTOURETHROSCOPY 05/07/2019 KNEE ARTHROSCOPY Right OTHER SURGICAL [...] 1:00 PM EST Office Visit [facility] ARRHYTHMIA [address] [place] [address] [address] [place] [address] Glendy Doan PA [address] [place] [address] 01/23/2026 11:45 AM EDT Office Visit [facility] ARRHYTHM[facility] [address] [place] [address] [address] [place] [address] Serene Yun, LIBBY [address] [place] [address] [place] [address] documented as of this encounter Procedures [...] Watchman LAAO. Adequate device compression.No significant PDL. Edis Garza MD IMG ECHO ORDERABLES Luisa l Result * (ABNORMAL) GLUCOSE METER POC (07/25/2025 12:28 PM EST) Glucose Meter POC 105(H) 70 - 100 mg/dL 07/25/2025 12:31 PM EST [facility] Sample Type Capillary 07/25/2025 12:31 PM EST [facility] Patient Status Non-Critical Patient 07/25/2025 12:31 PM EST [facility] Blood BLOOD SPECIMEN / Unknown 07/25/2025 12:28 PM EST 07/25/2025 12:31 PM EST Edis Garza MD POINT OF CARE TEST ORDER ZORAIDA Final Result [facility] [address] * LEFT ATRIAL APPENDAGE CLOSURE (07/25/2025 11:53 [...] while monitoring fluoroscopy in the POP and HUGH projections as well as JORJE with the [...] for fulfillment of all PASS ( Position [place] Size Stability) criteria was performed. This deployment [...] guided transseptal catherization, and Successful transseptal puncture us Edis Garza MD ELECTROPHYSIOLOGY ORDERA BLES Final Result Performing Organization Address [facility] Co de Phone Number [facility] CARDIOLOGY * (ABNORMAL) ACTIVATED CLOTTING TIME LR POC (07/25/2025 11:37 AM EST) [facility] ACT-LR >400(H) 89 - 169 second(s) 07/25/2025 11:43 AM EST [facility] Blood BLOOD SPECIMEN / Unknown 07/25/2025 11:37 AM EST 07/25/2025 11:43 AM EST us Edis Garza MD POINT OF CARE TEST ORDER ZORAIDA Final Result Performing Organization Address [facility] de Phone Number [facility] [address] [place] [address] * BB HISTORY CHECK (07/25/2025 9:32 AM EST) [facility] BB HISTORY CHECK (1) No Previous History 07/25/2025 9:53 AM EST [facility] Blood VENOUS BLOOD / Unknown Venipuncture / Unknown 07/25/2025 9:32 AM EST 07/25/2025 9:41 AM EST us Edis Garza MD BLOOD BANK ORDERABLES Fi nal Result Performing Organization Address [facility] de Phone Number [facility] [address] [place] [address] * ANTIBODY SCREEN IGG (07/25/2025 9:32 AM EST) [facility] ABSC IgG Int Negative 07/25/2025 10:42 AM EST [facility] Blood VENOUS BLOOD / Unknown Venipuncture / Unknown 07/25/2025 9:32 AM EST 07/25/2025 9:41 AM EST us Edis Garza MD BLOOD BANK ORDERABLES Fi nal Result [facility] [address] [place] [id number] * ABORH (07/25/2025 9:32 AM EST) ABORH Int O POS 07/25/2025 10:33 AM EST [facility] Blood VENOUS BLOOD / Unknown Venipuncture / Unknown 07/25/2025 9:32 AM EST 07/25/2025 9:41 AM EST Edis Garza MD BLOOD BANK ORDERABLES Fi nal Result Performing Organization Address City/[facility]/ZIP Co de Phone Number [facility] [address] [address] documented in this encounter Visit Diagnoses Diagnosis [...] Intravenous, at 150 mL/hr, CONTINUOUS, Starting on 07/24/25 at 0915, Until Fri07/25/25 at 2057, Start [...] Oral, EVERY 4 HOURS PRN, Starting on 07/25/25 at 1309, Until Fri07/25/25 at 2057, Pain, Headaches, Maximum adult dose of acetaminophen is 4000 mg from all sources in 24 hours., Post-op heparin (porcine) 1,000 Units in sodium chloride 0.9 % 1,000 mL IRRIGATION INTRAPROCEDURE, Starting on Fri07/25/25 at 1056, Until Fri07/25/25 at 1153, Intra-procedure(Cath) Given 07/25/2025 11:19 AM EST 1,000 mL heparin 2 units/ml in 0.9% NaCl 500 mL INTRAPROCEDURE, Starting on Fri07/25/25 at 1119, Until Fri07/25/25 at 1153, Intra-procedure(Cath) Given 07/25/2025 11:19 AM EST 1 'Bag' lidocaine-EPINEPHrine injection INTRAPROCEDURE, Starting on Fri07/25/25 at 1129, Until Fri07/25/25 at 1153, Intra-procedure(Cath) Given 07/25/2025 11:29 AM EST 10 mL Right Groin ondansetron (ZOFRAN) injection 4 mg 4 mg, [...] on Fri07/25/25 at 1156, Until Fri07/25/25 at 2058, Line Care, Flush with a minimum of [...] on Fri07/25/25 at 1156, Until Fri07/25/25 at 2058, Line Care, Flush with 5-10 mL saline [...] Galvan RN)1135 (IV Paused - Provider: Sheron Fuetnes CRNA - Comment: Switch to gravity)1136 (New Bag - Provider: Sheron Fuentes CRNA)1400 (Stopped - Provider: Won Galvan RN) PRN Medication Order 07/23/2025 07/24/2025 07/25/2025 acetaminophen (TYLENOL) tablet 650 mg 650 mg, Oral, EVERY 4 HOURS PRN, Starting on Fri07/25/25 at 1309, Until Fri07/25/25 at 2058, Pain, Headaches, Maximum adult dose of acetaminophen [...] Fri07/25/25 at 1148, Until Fri07/25/25 at 1947, Pain, For initial pain. Maximum dose not [...] fentaNYL (SUBLIMAZE) injection 50 mcg 1 06/2025 ondansetron (ZOFRAN) injection 4 mg 1 07/25 ondansetron (ZOFRAN-ODT) dis integrating tablet 8 mg 1 07/25/2025 promethazine (PHENERGAN) 12. 5 mg in sodium chloride 0.9% 10 mL injection 1 07/25/2025 promethazine (PHENERGAN) 6.2 5 mg in sodium chloride 0.9% 10 mL injection 1 07/25/2025 sodium chloride 0.9% IV line flush 20-50 mL 1 07/25/2025 sodium chloride 0.9% syringe 2 07/25/2025 0.9 % NaCl infusion 1 07/24/2025 ceFAZolin (ANCEF) 2 g in vikki rile [...]
--- OUTSIDE RECORDS SUMMARY | 2025-07-25 11:08 | XMS_ITS | Encounter Summary ---
Author Organization [place] [address] Care Team Providers Care Environmental Assistant Name Role Phone Unavailable Primary Care Provider Unavailabl e Reason for Visit * Auth/Cert/Inpt Specialty Diagnoses / Procedures Referred By Contac t Referred To Contact Diagnoses Persistent atrial fibrillation (HCC) Persistent atrial fibrillation (HCC) [I48.19] Procedures KS PERQ CLSR TCAT L ATR APNDGE W/ENDOCARDIAL IMPLNT Left Atrial Appendage Occlusion with Transesophageal Echocardiogram Referral ID Status Reason Start Date Expiration Date Visits Re quested Visits Authorized [id number] 1 1 Encounter Details Date Type Department Care Team (Late st Contact Info) Description 07/25/2025 11:08 AM EST Anesthesia Event EDG DOPSTER [facility] [place] [address] Kj Blount MD [address] [place] [address] [address] [place] [address] Ivana Irwin APRN [address] [place] [address] [place] [address] Anesthesia Record Procedure Summary Procedure Name Responsible Anesthesiologist Anesthesia Start Time Anesthesia Stop Time LEFT ATRIAL APPENDAGE CLOSURE (WATCHMAN) Kj Blount MD 07/25/25 1108 07/25/25 1200 Events Date Time Event Comment 07/25/2025 0924 1106 AN Equip Check 1108 An Start 1108 An Start Data 1109 Immediate Pre Anesthetic Ass es 1112 An Induction 1112 An Intubation 1123 Anesthesia Ready 1123 Time out 1123 Incision 1146 An Emergence 1153 An Extubation 1153 an stop data 1200 An Stop 1200 Handoff I completed my SBAR handoff to the receiving nurse which has included the followin. Identification of the patient, family, or patient surrogate 2. Identification of the responsible practitioner 3. Pertinent medical history 4. Surgical procedure and reason for procedure 5. Intraoperative anesthetic management 6. All current lines, drains and respiratory support. 7. Outstanding follow up orders (X-rays, consults etc) 8. Expectations/Plans for the early post-procedure period 9. 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 Meds Name Total lidocaine injection 1% 50 mg propofol (DIPRIVAN) injection 200 mg rocuronium (ZEMURON) 10 mg/mL injection 50 mg dexamethasone (DECADRON) injection 4 mg/ mL 4 mg ondansetron (ZOFRAN) injection 4 mg /2 m L 4 mg sugammadex (BRIDION) 100 mg/mL injection 200 mg lidocaine 4 % (PRCUFG-Z-XVS) laryngotrac heal solution 4 mL ceFAZolin (ANCEF) 2 g in sterile water 2 0 mL IVP 2 g heparin (porcine) injection 1,000 units/ mL 13,000 Units protamine injection 50 mg vasopressin (pitRESSIN) injection 20 uni ts 2 Units ketamine injection 10 mg/mL 50 mg 0.9 % NaCl infusion 1,000 mL * Agents Name O2 N2O Air Et Sevoflurane * Blood No blood administrations on file. Lines, Drains, and Airways Type Details Placement Removal Peripheral IV 07/25/25; 0935; 20; Left; Forearm; Ayesha Gonzalez RN; 1; 07/25/25; 1615; Therapy completed; Catheter intact, Dressing applied, No Complications 07/25/25 0935 by Won Galvan, ERIK 07/25/25 1615 by Won Galvan, RN Airway Device: ETT- Cuffed; Placement Date: 07/25/25; Placement Time: 1128 (created via procedure documentation); Removal Date: 07/25/25; Removal Time: 1153 07/25/25 1128 by Sheron Fuentes CRNA 07/25/25 1153 by Sheron Fuentes CRNA Venous Sheath 07/25/25; 1130; Righ t femoral vein; 8.5 fr; Yes; Yes; Yes; Yes; Yes; Yes; Yes; Y 07/25/25 1130 by Babatunde Garcia RN 07/25/25 1144 by Babatunde Garcia, RN documented in this encounter Social History Tobacco [...] on file documented as of this encounter Procedure Notes * Sheron Fuentes CRNA - 07/25/2025 11:28 AM ESTAssociated Order(s): Intraop Airway Placement Intraop Airway Placement: Date/Time: 07/25/2025 11:28 AM Induction type: IV Mask size: Standard adult Pre-Oxygenation: Standard Mask ventilation: Not attempted Technique: Video laryngoscope Laryngoscope blade: Dozier Blade size: 4 Grade view: I Airway type: ETT- cuffed Topical Anesthetic/Lubricant: Lidocaine 2% jelly Intubation assist devices: Stylet 14fr Airway location: Oral Secured by: Tape Placement verified: Auscultation and End tidal CO2 Condition: Atraumatic Title: TRACY documented in this encounter OR Notes * Anesthesia Postprocedure Evaluation - Kj Blount MD - 07/25/2025 1:14 PM EST Post-Anesthesia Evaluation Note Patient Name: Mino Hsu Patient Date: July 25, 2025 Post-Anesthesia Evaluation Patient Location: PACU Post op vitals: stable Difficult airway: no Nausea controlled: yes Level of consciousness: awake and alert Post anesthesia pain: adequate analgesia Long acting local anesthetic: n/a Airway patency: patent Respiratory status: nasal canula and spontaneous ventilation Cardiovascular status: stable Hydration status: euvolemic Temperature: Normothermia Perioperative complications: NONE Vitals Value Taken Time BP 141/78 07/25/25 12:45 Resp 14 07/25/25 12:45 SpO2 97 % 07/25/25 12:45 Temp 36.5 ??C (97.7 ??F) 07/25/25 12:45 Pulse 72 07/25/25 12:45 * Anesthesia Preprocedure Evaluation - Kj Blount MD - 07/25/2025 9:16 AM EST Pre-Anesthesia Evaluation Note Patient Name: Mino Hsu Sex: male Patient : 1945 Age: 79 y.o. Patient Date: July 25, 2025 Procedure(s): Left Atrial Appendage Occlusion with Transesophageal Echocardiogram Anesthesia Evaluation Previous anesthesia. No history of anesthetic complications: Airway Mallampati: III TM distance: >3 FB Neck ROM: full No increased risk of difficult airway Dental Dental exam findings: lower dentures and upper dentures Pulmonary (+) COPD: History of tobacco use: current Physical exam: Comments: Clear to auscultation (-) no asthma Cardiovascular Comments: Echo 2022: EF 53%, concentric hypertrophy, grade 2 DD, no significant valve dz (+)Hypertension: Hyperlipidemia CAD/RI: Coronary Stents CHF: LV failure Cardiomyopathy: Non-Ischemic Arrhythmias: atrial fibrillation Peripheral arterial disease: Carotid Disease ECG reviewed Physical exam: Rhythm: irregular Rate: normal Neuro/Psych (+) Psychiatric history: Anxiety and Depression Peripheral neuropathy Back or neck pain: GI/Hepatic/Renal (+)GERD/PUD: well controlled (-) no chronic kidney disease Endo/Other (+): Diabetes mellitus (HbA1c 6.1 05/2025): type 2 and well controlled Arthritis: Osteoarthritis anticoagulation therapy (Xarelto) (-) no anemia 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 Anesthesia Plan ASA 3 Last solid intake: The patient has not eaten within the last 8 hours. Last clear liquid intake: The patient has not had clear liquids within the last 2 hours. Anesthesia Plan: general Induction: intravenous Monitors: STD PONV Risk Score: 0. Score of 0-1 is Low Risk for PONV, antiemetic prophylaxis is not indicated but may still be given. Informed consent Anesthetic plan and risks discussed with: patient. Chart Reviewed and patient examined documented in this encounter Plan of Treatment Upcoming Encounters Date Type Department Care Team (Late st Contact Info) Description 09/16/2025 1:00 PM EST Office Visit [facility] ARRHYTHMIA [address] [place] [address] [address] [place] [address] Glendy Doan PA [address] [place] [address] DR [address] [place] [address] 01/23/2026 11:45 AM EDT Office Visit [facility] ARRHYTHMIA [address] [place] [address] [address] [place] [address] Serene Yun APRN [address] [place] [address] [place] [address] documented as of this encounter Procedures Procedure Name Priority Date/Time Associated Diagnosis Comments INTRAOP AIRWAY PLACEMENT Routine 07/25/2025 11:28 AM EST documented in this encounter Results * INTRAOP AIRWAY PLACEMENT (07/25/2025 11:28 AM EST) Narrative [facility] - 07/25/2025 11:28 AM EST Sheron Fuentes CRNA 07/25/2025 11:29 AM Intraop Airway Placement: Date/Time: 07/25/2025 11:28 AM Induction type: IV Mask size: Standard adult Pre-Oxygenation: Standard Mask ventilation: Not attempted Technique: Video laryngoscope Laryngoscope blade: Dozier Blade size: 4 Grade view: I Airway type: ETT- cuffed Topical Anesthetic/Lubricant: Lidocaine 2% jelly Intubation assist devices: Stylet 14fr Airway location: Oral Secured by: Tape Placement verified: Auscultation and End tidal CO2 Condition: Atraumatic Title: DECK OFFICER us Kj Blount MD [place] ANESTHESIA Final Res ult [facility] [address] [place] [address] documented in this encounter Visit Diagnoses Not on filedocumented in this encounter Administered Medications Inactive Administered Medications - up to 1 most recent administrations Medication Order MAR Action Action Date Dose Rate Site 0.9 % NaCl infusion Intravenous, at 150 mL/hr, CONTINUOUS, Starting on Fri07/24/25 at 0915, Until Fri07/25/25 at 2058, Start 2 hours prior to procedure at 150 mL/hr. If Sodium Bicarbonate drip to infuse, 0.9% Normal Saline to infuse at Keep Open Rate., Pre-op (Floor Meds), Dx: 1. Other persistent atrial fibrillation (HCC)Indications:Other persistent atrial fibrillation (HCC) New Bag 07/25/2025 11:36 AM EST ceFAZolin (ANCEF) 2 g in sterile water 20 mL IVP 2 g, Intravenous, ONCE PREPROCEDURE, 1 dose, [...] Pre-Procedure(Cath), Dx: 1. Other persistent atrial fibrillation (HCC)Indications:Other persistent atrial fibrillation (HCC) New Bag 07/25/2025 11:22 AM EST 2 g dexAMETHasone (DECADRON) injection Intravenous, PRN (Anesthesia), Starting on Fri07/25/25 at 1142, Until Fri07/25/25 at 1200, Anesthesia Intra-op Given 07/25/2025 11:42 AM EST 4 mg heparin (porcine) injection Intravenous, PRN (Anesthesia), Starting on Fri07/25/25 at 1130, Until Fri07/25/25 at 1200, Anesthesia Intra-op Given 07/25/2025 11:30 AM EST 13,000 Units ketamine (KETALAR) injection Intravenous, PRN (Anesthesia), Starting on Fri07/25/25 at 1145, Until Fri07/25/25 at 1200, Anesthesia Intra-op Given 07/25/2025 11:12 AM EST 50 mg lidocaine 1% 10 mg/mL (1 %) injection Intravenous, PRN (Anesthesia), Starting on Fri07/25/25 at 1111, Until Fri07/25/25 at 1200, Anesthesia Intra-op Given 07/25/2025 11:11 AM EST 50 mg lidocaine HCl (CKATXS-S-YOK) 4 % topical solution Laryngotracheal, PRN (Anesthesia), Starting on Fri07/25/25 at 1112, Until Fri07/25/25 at 1200, Anesthesia Intra-op Given 07/25/2025 11:12 AM EST 4 mL ondansetron (ZOFRAN) injection Intravenous, PRN (Anesthesia), Starting on Fri07/25/25 at 1142, Until Fri07/25/25 at 1200, Anesthesia Intra-op Given 07/25/2025 11:42 AM EST 4 mg propofoL (DIPRIVAN) injection Intravenous, PRN (Anesthesia), Starting on Fri07/25/25 at 1112, Until Fri07/25/25 at 1200, Anesthesia Intra-op Given 07/25/2025 11:12 AM EST 200 mg protamine injection Intravenous, PRN (Anesthesia), Starting on Fri07/25/25 at 1144, Until Fri07/25/25 at 1200, Anesthesia Intra-op Given 07/25/2025 11:44 AM EST 50 mg rocuronium injection Intravenous, PRN (Anesthesia), Starting on Fri07/25/25 at 1112, Until Fri07/25/25 at 1200, Anesthesia Intra-op Given 07/25/2025 11:12 AM EST 50 mg sugammadex (BRIDION) injection Intravenous, PRN (Anesthesia), Starting on Fri07/25/25 at 1146, Until Fri07/25/25 at 1200, Anesthesia Intra-op Given 07/25/2025 11:46 AM EST 200 mg vasopressin (pitRESSIN) injection Intravenous, PRN (Anesthesia), Starting on Fri07/25/25 at 1127, Until Fri07/25/25 at 1200, Anesthesia Intra-op Given 07/25/2025 11:27 AM EST 2 Units documented in this encounter Additional Health Concerns Assessment Noted Time A fall risk assessment has been complete d for the patient 09/28/2024 1:34 PM EST documented as of this encounter
--- OUTSIDE RECORDS SUMMARY | 2025-08-05 16:15 | XMS_ITS | Encounter Summary ---
[facility] [address] [place] [address] Care Team Providers Care Window Installer Name Role Phone Cheko Heredia MD Primary Care Provider + Reason for Visit * Reason Comments CAMPBELL, neck pain, and blurred vision Since a fall on 07-09-25 Encounter Details Date Type Department Care Team (Late st Contact Info) Description 08/05/2025 4:15 PM EST Office Visit [facility] [address] [place] [address] Cheko Heredia MD [address] [place] [address] Need for immunization against influenza (Primary Dx); Strain of neck muscle, subsequent encounter Social History Tobacco Use Types Packs/Day [...] Industry Job Start Date Job End Date [employer] Not on file Not on file Not on file documented as of this encounter Last Filed Vital Signs Vital Sign Reading Time Taken Comments Blood Pressure 130/80 08/05/2025 4:13 PM EST Pulse 76 08/05/2025 4:13 PM EST Temperature 36.3 C (97.3 F) 08/05/2025 4:13 PM EST Respiratory Rate 20 08/05/2025 4:13 PM EST Oxygen Saturation 98% 08/05/2025 4:13 PM EST Inhaled Oxygen Concentration - - Weight 89.7 kg (197 lb 12.8 oz) 08/05/2025 4:13 PM EST Height 180.3 cm (5' 11 ) 08/05/2025 4:13 PM EST Body Mass Index 27.59 08/05/2025 4:13 PM EST documented in this encounter Progress Notes * Cheko Heredia MD - 08/05/2025 4:15 PM EST Chief Complaint Patient presents with CAMPBELL, neck pain, and blurred vision Since a fall on 07-09-25 Subjective Mino Hsu is a 79 y.o. who presents for right sided neck pain sustained during a fall 4 weeks ago when he tripped, fell, and struck the top of his head on a brick wall. Patient believes he lost consciousness briefly. Because he is on anticoagulants he was taken to a hospital where he underwent CT scan and x- rays. There was no bony cervical spine injury. He was seen at an [facility] several days later and given a course of steroids which improved his pain until the steroids were exhausted. He comes in today due to continued neck stiffness. Objective Vital Signs: BP 130/80 Pulse 76 Temp 97.3 ??F (36.3 ??C) Resp 20 Ht 180.3 cm (71 ) Wt 89.7 kg (197 lb 12.8 oz) SpO2 98% BMI 27.59 kg/m?? Physical Exam Vitals reviewed. Constitutional: Appearance: Normal appearance. Neck: Comments: Neck exam is negative for any obvious deformity. There is no soft tissue tenderness nor bony tenderness. Patient has reproducible pain with active rotation of the cervical spine to the leftotherwise normal exam Neurological: Mental Status: He is alert. Result Review Assessment and Plan Diagnoses and all orders for this visit: 1. Need for immunization against influenza (Primary) - Fluzone High-Dose 65+yrs ([id number]) 2. Strain of neck muscle, subsequent encounter - cyclobenzaprine (FLEXERIL) 5 MG tablet; Take 1 tablet by mouth 3 (Three) Times a Day As Needed for Muscle Spasms. Dispense: 30 tablet; Refill: 0 Plan: Patient had a muscular injury. I have recommended continuing local heat. A course of muscle relaxants. If no improvement he may need to follow-up with his pain management physician for consideration of trigger point injections Follow Up No follow-ups on file. Patient was given instructions and counseling regarding his condition or for health maintenance advice. Please see specific information pulled into the AVS if appropriate. documented in this encounter Plan of Treatment Upcoming Encounters Date Type Department Care Team (Late st Contact Info) Description 09/19/2025 3:00 PM EST Office Visit [facility] [address] [place] [address] Cheko Heredia MD [address] [place] [address] 12/12/2025 2:15 PM EDT Office Visit [facility] [address] [place] [address] Cheko Heredia MD [address] [place] [address] Scheduled Procedures Name Priority Associated Diagnoses Date/Ti me ABLATION A-FIB Atrial fibrillation with RVR Cardiomyopathy, dilated, nonischemic Essential hypertension documented as of this encounter Visit Diagnoses Diagnosis Need for immunization against influenza- Primary Need for prophylactic vaccination and inoculation against influenza Strain of neck muscle, subsequent encounter documented in this encounter Care Teams Window Installer Relationship Specialty Start Date End Date Cheko Heredia MD [address] [place] [address] PCP - General Family Medicine 01/10/22 documented as of this encounter
--- OUTSIDE RECORDS SUMMARY | 2025-08-16 14:45 | XMS_ITS | Encounter Summary ---
[facility] Organization [facility] Address [address] [place] [address] Care Team Providers Care Aviation Medicine Specialist Name Role Phone Cheko Heredia MD Primary Care Provider + Reason for Referral * MRI/CAT/PET Scan (Routine) - Authorized Specialty Diagnoses / Procedures Referred By Contac t Referred To Contact Diagnoses Neck pain on right side Traumatic disorder of cervical spine Procedures MRI Cervical Spine Without Contrast Cheko Heredia MD [address] [facility] [place] [address] Phone: tel: fax: [facility] [address] [place] [address] Phone: tel: fax: Referral ID Status Reason Start Date Expiration Date V isits Requested Visits Authorized [id number] Authorized 08/16/2025 11/15/2026 1 1 Reason for Visit * Reason Comments Fall 07/09/25 still havin g issues with neck and head, vision blurry sometimes when waking up in morning. Encounter Details Date Type Department Care Team (Late Contact Info) Description 08/16/2025 2:45 PM EST Office Visit [facility] [address] [facility] [place] [phone] Cheko Heredia MD [address] [facility] [place] [address] Neck pain on right side (Primary Dx); Traumatic disorder of cervical spine; Cervical spine arthritis; Strain of neck muscle, subsequent encounter Social [...] Industry Job Start Date Job End Date [employer] Not on file Not on file Not on file documented as of this encounter Last Filed Vital Signs Vital Sign Reading Time Taken Comments Blood Pressure 82/52 08/16/2025 2:49 PM EST Pulse 60 08/16/2025 2:49 PM EST Temperature 36.3 C (97.3 F) 08/16/2025 2:49 PM EST Respiratory Rate 18 08/16/2025 2:49 PM EST Oxygen Saturation - - Inhaled Oxygen Concentration - - Weight 90.7 kg (200 lb) 08/16/2025 2:49 PM EST Height 180.3 cm (5' 11 ) 08/16/2025 2:49 PM EST Body Mass Index 27.89 08/16/2025 2:49 PM EST documented in this encounter Progress Notes * Cheko Heredia MD - 08/16/2025 2:45 PM EST Chief Complaint Patient presents with Fall 07/09/25 still having issues with neck and head, vision blurry sometimes when waking up in morning. Subjective Mino Hsu is a 79 y.o. who presents for continued right sided neck pain after a fall in lateOctober where he struck his forehead on a brick wall. He was evaluated at [facility] with CT of the head and neck showing only chronic changes. He continues to have right sided neck pain that is most noticeable when turning his head to the left. He has known multilevel spinal arthritis. Objective Vital Signs: BP (!) 82/52 Pulse 60 Temp 97.3 ??F (36.3 ??C) Resp 18 Ht 180.3 cm (71 ) Wt 90.7 kg (200 lb) BMI 27.89 kg/m?? Physical Exam Vitals reviewed. Constitutional: Appearance: Normal appearance. Neck: Comments: Neck exam is negative for any obvious deformity. There is mild tenderness at the base of the right occiput and extending laterally to the mastoid. Patient has reproducible pain with active rotation of the cervical spine to the left otherwise normal exam Neurological: Mental Status: He is alert. Result Review Assessment and Plan Diagnoses and all orders for this visit: 1. Neck pain on right side (Primary) - MRI Cervical Spine Without Contrast; Future 2. Traumatic disorder of cervical spine - MRI Cervical Spine Without Contrast; Future 3. Cervical spine arthritis 4. Strain of neck muscle, subsequent encounter - cyclobenzaprine (FLEXERIL) 5 MG tablet; Take 1 tablet by mouth 3 (Three) Times a Day As Needed for Muscle Spasms. Dispense: 30 tablet; Refill: 0 Plan: Patient's neck pain is not improved. I do believe he would need injection based therapies. Patient has pain management. We will proceed with an MRI and then he will follow-up with pain management Follow Up No follow-ups on file. Patient was given instructions and counseling regarding his condition or for health maintenance advice. Please see specific information pulled into the AVS if appropriate. documented in this encounter Plan of Treatment Upcoming Encounters Date Type Department Care Team (Late st Contact Info) Description 09/19/2025 3:00 PM EST Office Visit [facility] [address] [place] [address] Cheko Heredia MD Shreya [address] [place] [address] 12/12/2025 2:15 PM EDT Office Visit [facility] [address] [place] [phone] Cheko Heredia MD [address] [place] [address] Scheduled Orders Name Type Priority Associated Diagnoses Orde r Schedule MRI Cervical Spine Without Contrast Imaging Routine Neck pain on right side Traumatic disorder of cervical spine Expected: 08/17/2025, Expires: 11/14/2026 Scheduled Procedures Name Priority Associated Diagnoses Date/Ti me ABLATION A-FIB Atrial fibrillation with RVR Cardiomyopathy, dilated, nonischemic Essential hypertension documented as of this encounter Visit Diagnoses Diagnosis Neck pain on right side- Primary 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
--- OUTSIDE RECORDS SUMMARY | 2025-09-13 12:18 | XMS_ITS | Encounter Summary ---
Author Organization [facility] [address] Care Team Providers Care Autistic Teacher Name Role Phone Unavailable Primary Care Provider Unavailabl e Reason for Referral * MRI/CAT Scan (Routine) - Authorization Not Needed Specialty Diagnoses / Procedures Referred By Contac t Referred To Contact Radiology Diagnoses Other persistent atrial fibrillation (HCC) Procedures CT [facility] Edis Garza MD [address] [place] [address] Phone: tel: fax: Referral ID Status Reason Start Date Expiration Date Visits Requested Visits Authorized [id number] Authorization Not Needed 5 07/25/2026 1 1 Reason for Visit * MRI/CAT Scan (Routine) - Authorization Not Needed Specialty Diagnoses / Procedures Referred By Contac t Referred To Contact Radiology Diagnoses Other persistent atrial fibrillation (HCC) Procedures CT [facility] Edis Garza MD [address] [place] [address] Phone: tel: fax: Referral ID Status Reason Start Date Expiration Date Visits Requested Visits Authorized [id number] Authorization Not Needed 5 07/25/2026 1 1 Encounter Details Date Type Department Care Team (Latest Contact Info) Description 09/13/2025 12:18 PM EST - 09/13/2025 11:59 PM EST Hospital Encounter [facility] [address] [place], [place] [id number] Edis Garza MD [address] [facility] [place] [id number] Other persistent atrial fibrillation (HCC) Discharge Disposition: [...] 1:00 PM EST Office Visit [facility] [address] [place] [address] [place] [phone] Glendy Doan, MIGUEL [address] [place] [address] DR SANCHEZ [address] [place] [phone] 01/23/2026 11:45 AM EDT Office Visit [facility] [address] [place] [address] [place] [phone] Serene Yun, PRICE CLERK [address] [place] [address] [place] [address] documented as of this encounter Procedures Procedure Name Priority Date/Time Associated Diagnosis Comments CT [facility] Routine 09/13/2025 12:57 PM EST Other persistent atrial fibrillation (HCC) CREATININE ISTAT Routine 09/13/2025 12:4 1 PM EST documented in this encounter Results * CT [facility]PH[facility]Y (09/13/2025 12:57 PM EST) Anatomical Region Laterality Modality Chest Computed Tomogra phy 09/13/2025 12:5 7 PM EST Impressions 09/13/2025 3:14 PM EST Satisfactory positioning of Watchman device. No leak or significant atrial side thrombus. [place] coronary artery disease with apparent segmental occlusion proximal RCA. Study not designed to evaluate the coronary arteries in detail however - Note: Radiology results need to be interpreted within a comprehensive clinical context. If you have questions about the radiology report, please contact the office of the ordering clinician. Narrative 09/13/2025 3:[address] WATCHMAN PROTOCOL, 09/13/2025 12:57 PM CLINICAL HISTORY: I48.19-Other persistent atrial fibrillation (HCC)-ICD-10-CM. Watchman surveillance. COMPARISON: None. TECHNIQUE: Watchman Device protocol gated CT of the heart with multiplanar reconstructions. Contrast type, dose, and route of administration recorded in Epic. Dose 1 : CT DLP Total : 259.49 mGycm Maximum CTDI Vol : 7.75 mGy FINDINGS: WATCHMAN DEVICE: Position: Well-positioned with respect to the appendage orifice. Leak: No visible leak or measurable gap between the device shoulder and the orifice. Atrial side thrombus: No lobulated or pedunculated thrombus. Delayed imaging of the appendage: None CARDIAC CHAMBERS: The right atrium and both ventricles are morphologically normal. There is no evidence of left ventricular hypertrophy. CORONARY ARTERIES: This study was not designed to evaluate the coronary arteries for degree of stenosis. However there is definitely coronary artery disease and there appears to be segmental occlusion of the proximal RCA. VALVES: Normal CT appearance of the aortic and mitral valves, without calcification. PERICARDIUM: Normal pericardial thickness. No pericardial effusion or calcification. AORTA: There is no visualized aortic aneurysm or dissection. NON-CARDIAC FINDINGS: The visualized lungs are clear. Visualized osseous structures are unremarkable. Procedure Note Karson Craig MD - 09/13/[address] WATCHMAN PROTOCOL, 09/13/2025 12:57 PM CLINICAL HISTORY: I48.19-Other persistent atrial fibrillation(HCC)-ICD-10-CM. Watchman surveillance. COMPARISON: None. TECHNIQUE: Watchman Device protocol gated CT of the heart withmultiplanar reconstructions. Contrast type, dose, and route of administrationrecorded in Epic. Dose 1 : CT DLP Total : 259.49 mGycm Maximum CTDI Vol : 7.75 mGy FINDINGS: WATCHMAN DEVICE: Position: Well-positioned with respect to the appendage orifice. Leak: No visible leak or measurable gap between the device shoulder andthe orifice. Atrial side thrombus: No lobulated or pedunculated thrombus. Delayed imaging of the appendage: None CARDIAC CHAMBERS: The right atrium and both ventricles aremorphologically normal. There is no evidence of left ventricular hypertrophy. CORONARY ARTERIES: This study was not designed to evaluate the coronaryarteries for degree of stenosis. However there is definitely coronary arterydisease and there appears to be segmental occlusion of the proximal RCA. VALVES: Normal CT appearance of the aortic and mitral valves, without calcification. PERICARDIUM: Normal pericardial thickness. No pericardial effusion or calcification. AORTA: There is no visualized aortic aneurysm or dissection. NON-CARDIAC FINDINGS: The visualized lungs are clear. Visualized osseous structures are unremarkable. IMPRESSION: Satisfactory positioning of Watchman device. No leak or significantatrial side thrombus. [place] coronary artery disease with apparent segmental occlusion proximalRCA. Study not designed to evaluate the coronary arteries in detail however - Note: Radiology results need to be interpreted within a comprehensiveclinical context. If you have questions about the radiology report, please contactthe office of the ordering clinician. Edis Garza MD IM CT ORDERABLES Final Result * CREATININE ISTAT (09/13/2025 12:41 PM EST) Creatinine-iST AT 1.0 0.6 - 1.3 mg/dL 09/13/2025 12:48 PM EST [facility] Blood BLOOD SPECIMEN / Unknown 09/13/2025 12:41 PM EST 09/13/2025 12:48 PM EST Edis Garza MD POINT OF CARE TEST ORDER ZORAIDA Final Result [facility] [address] [place] [address] documented in this encounter Visit Diagnoses Diagnosis Other persistent atrial fibrillation (HCC) documented in this encounter Administered Medications Inactive Administered Medications - up to 1 most recent administrations Medication Order MAR Action Action Date Dose Rate Site iohexoL (OMNIPAQUE-350) solution 75 mL 75 mL, Intravenous, ONCE PRN, 1 dose, Starting on Fri09/13/25 at 1230, Until 09/13/25 at 1257, Other, Radiology Procedure, VESICANT , CT (Contrasts) Given 09/13/2025 12:57 PM EST 75 mL Right Arm sodium chloride 0.9% syringe Intravenous, ONCE PRN, 1 dose, Starting on e 09/13/25 at 1230, Until 09/13/25 at 1257, Line Care, Flush peripheral lines every 12 hours, central lines every 8 hours, and after IV medication, CT (Contrasts) Given 09/13/2025 12:57 PM EST 70 mL Right Arm documented in this encounter Additional Health Concerns Assessment Noted Time A fall risk assessment has been complete d for the patient 09/28/2024 1:34 PM EST documented as of this encounter
--- NOTE | 2025-09-14 13:00 | MR_ITS ---
FINAL REPORT TECHNIQUE: Multiplanar and multisequence imaging of the cervical spine was obtained. CLINICAL HISTORY: NECK PAIN R SIDE, fall June COMPARISON: None FINDINGS: There is minimal anterolisthesis of C5 on C6. Vertebral body height is preserved. Signal intensity within the substance of the spinal cord is normal. No acute bone marrow edema. No acute paraspinal abnormality. C2/3: A small central disc protrusion is present. No focal disc herniation, central canal stenosis, or neural foraminal narrowing. C3/4: A small central disc protrusion is present with mild facet osteoarthropathy and mild left neural foraminal narrowing. C4/5: An annular bulge is present with degenerative endplate changes and facet osteoarthropathy. There is mild central canal stenosis, moderate to severe right neural foraminal narrowing. C5/6: Bilateral facet osteoarthropathy is present with mild bilateral neural foraminal narrowing and no evidence of canal stenosis. C6/7: An annular bulge is present with degenerative endplate changes and facet osteoarthropathy. There is moderate to severe bilateral neural foraminal narrowing. C7/T1: No focal disc herniation, central canal stenosis, or neural foraminal narrowing. IMPRESSION: 1. Multilevel cervical degenerative changes noted, most pronounced at the C6-7 level. Reviewed, Interpreted and Dictated by Mary Brooke MD Transcribed by Poly Love Authenticated and [facility]
--- OUTSIDE RECORDS SUMMARY | 2025-09-14 13:00 | XMS_ITS | Encounter Summary ---
[facility] Address [address] [place] [address] Care Team Providers Care Central Supply Clerk Name Role Phone Cheko Heredia MD Primary Care Provider + Encounter Details Date Type Department Care Team (Late st Contact Info) Description 12/12/2024 Results Follow-Up [facility] [address] [facility] [place] [address] Cheko Heredia MD [address] [place] [address] Social History Tobacco Use Types [...] Industry Job Start Date Job End Date [employer] Not on file Not on file Not on file documented as of this encounter Plan of Treatment Upcoming Encounters Date Type Department Care Team (Late st Contact Info) Description 09/19/2025 3:00 PM EST Office Visit [facility] [address] [facility] [place] [address] Cheko Heredia MD [address] [place] [address] 12/12/2025 2:15 PM EDT Office Visit [facility] [address] [place] [address] Cheko Heredia MD [address] [place] [address] Scheduled Procedures Name Priority Associated Diagnoses Date/Ti me ABLATION A-FIB Atrial fibrillation with RVR Cardiomyopathy, dilated, nonischemic Essential hypertension documented as of this encounter Visit Diagnoses Not on filedocumented in this encounter Care Teams Central Supply Clerk Relationship Specialty Start Date End Date Cheko Heredia MD [address] [place] [address] PCP - General Family Medicine 01/10/22 documented as of this encounter
--- OUTSIDE RECORDS SUMMARY | 2025-09-14 13:00 | XMS_ITS | Encounter Summary ---
Author Organization [facility] Address [address] [place] [address] Care Team Providers Care Vest Backer Name Role Phone Horace Kojo Primary Care Provider [phone] Skinny Massey MD Unavailable [phone] Encounter Details Date Type Department Care Team (Latest Contact Info) Description 04/19/2019 Preop Surgical Orders [facility] Physicians - Urology, [address] [phone] Skinny Massey MD [address] [place] [id number] Increased frequency of urination (Primary Dx) Social [...] frequency documented in this encounter Care Teams Vest Backer Relationship Specialty Start Date End Date HoraceKojo [address] [place] [phone] PCP - General 09/18/18 Skinny Massey MD [address] [place] [address] Urology 09/22/22 documented as of this encounter
--- OUTSIDE RECORDS SUMMARY | 2025-09-14 13:00 | XMS_ITS | Clinical Summary ---
Author Organization [facility] , [facility] Address [address] [place] [address] Phone Care Team Providers Care Systems Integration Analyst Name Role Phone Shanna SUTTON, Pedro TOLENTINO MD, ALEX Primary Care Provider [phone] Reason for Visit and Chief Complaint Epidural Steroid Injection Problems Includes: Problems addressed during this encounter and other active Problems All Visits Onset Date Date of Diagnosis Resolved Date Provider Condition Status Lower Back Pain 06/28/2019 06/28/2019 Pedro Otero MD Active Last Documented On 5 1:39AM ; [facility] Plan of Treatment No Plan of Treatment Recorded Assessments Includes: Assessments from this encounter No Assessments Recorded Medical Equipment - Implanted Devices Includes: Current Devices No Medical Equipment Recorded Medications Includes: Medications discussed during this encounter and other current Medications Current Medications (continue as prescribed) Jardiance 10 MG Oral Tablet 10/22/2024 Provider: Diagnosis: Last Documented On 5 2:09PM By Deangelo العلي ; [facility] Albuterol Sulfate HFA 108 (9 0 Base) MCG/ACT Inhalation Aerosol Solution 10/13/2024 Provider: Diagnosis: Last Documented On 5 2:09PM By Deangelo العلي ; [facility] Xarelto 15 MG Oral Tablet 10/13/2024 Provider: Diagnosis: Last Documented On 5 2:09PM By Deangelo العلي ; [facility] Clopidogrel Bisulfate 75 MG Oral Tablet 10/01/2024 Ally dalalder: Diagnosis: Last Documented On 5 2:09PM By Deangelo العلي ; [facility] Pantoprazole Sodium 40 MG Oral Tablet Delayed Release 10/01/2024 Provider: Diagnosis: Last Documented On 5 2:09PM By Deangelo العلي ; [facility] Ranolazine ER 1000 MG Oral Tablet Extended Release 12 Hour 10/01/2024 Provider: Diagnosis: Last Documented On 5 2:09PM By Deangelo العلي ; [facility] Tamsulosin HCl 0.4 MG Oral Capsule 09/21/2024 Provid er: Diagnosis: Last Documented On 5 2:09PM By Deangelo العلي ; [facility] Medications Administered Includes: Administered Medications from this encounter No Administered Medications Recorded Results Includes: Results discussed during this encounter No Results Recorded For Specified Dates History of Present Illness Includes: History of Present Illness from this encounter No History of Present Illness Recorded Social History Description Last Updated Sex - Male 07/27/2025 Last Documented On 5 12:23PM ; [facility] Smoking Status Unknown Procedures and Surgical History Includes: Procedures from this encounter Procedures Code Diagnosis Performing Provider Service Location Service Date Lumbar epidural 08238 Spinal stenosis, lumbar region with neurogenic claudication [place] [facility] 11/03/2024 Last Documented On 5 2:22PM ; [facility] Triamcinolone/Kenalog, 10mg per cc J3301 Spinal stenosis, lumbar region with neurogenic claudication [place] [facility] 11/03/2024 Last Documented On 5 2:22PM ; [facility] Medical History Includes: Medical History addressed during this encounter No Medical History Recorded Family History Includes: Family History addressed during this encounter No Family History Recorded Review of Systems Includes: Review of Systems from this encounter No Review of Systems Recorded Physical Exam Includes: Physical Exam from this encounter No Physical Exam Recorded Allergies Includes: Active Allergies Substance Type Reaction Onset Date Resolved Date Statu s Sulfa Antibiotics Allergy 06/28/2019 A ctive Last Documented On 5 1:30PM ; [facility] Care Systems Integration Analyst Name (Identifier) Role/Relation Location/Telecom Last Documented By Pedro Otero MD ([id number]) Assigned practitioner (occupation) Last Documented On 07/27/2025 12:23PM ; MARIANA CROOKS MD ([id number]) Primary care physician ([place]ation) [place], , [phone] tel: Last Documented On 07/27/2025 12:23PM ; MARIANA CROOKS Encounters Encounter Provider Location (Healthcare Service Location) Date Check-In Time Check-Out Time Diagnosis Encounter Disposition Epidural Steroid Injection [facility] 2024 2:03PM 3:19PM Payer Includes: Active Insurance Policies Plan Name (Payer ID) Coverage Type Member ID Group # Subscriber (ID) Relationship Effective Dates 1 - Medicare Part B [facility] ([id number]) [id number] Mino Hsu Self 2 - Unknown Last Documented On 9 1:12PM ; [facility] 2 - BCBS [facility] ([id number]) [id number] Mino Hsu Self 07/22/20 16 - Unknown Last Documented On 9 1:12PM ; [facility]
--- OUTSIDE RECORDS SUMMARY | 2025-09-14 13:00 | XMS_ITS | Clinical Summary ---
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 (SNOMED CT) 05/08 Active 05/08 Lio Corcoran MD Abnormal grief reaction Hx of cardiac arrhythmias 526528978 (SNOMED CT) 05/08 Active 05/08 Lio Corcoran MD H/O: heart disorder Insomnia 428429757 (SNOMED CT) 05/08 Active 05/08 Lio Corcoran MD Insomnia Back pain 453243142 (SNOMED CT) 05/08 Active 05/08 Lio Corcoran MD Backache Fatigue 68449261 (SNOMED CT) 05/08 Active 05/08 Lio Corcoran MD Fatigue Depression / anxiety 746583117 (SNOMED CT) 05/08 Active 05/08 Lio Corcoran MD Mixed anxiety and depressive disorder Anticoagulati on 469977265 (SNOMED CT) 05/08 Active 05/08 Lio Corcoran MD Anticoagulant therapy Stented coronary artery 737023872 (SNOMED CT) 05/08 Active 05/08 Lio Corcoran MD Stented coronary artery Medications Medication Instructions Start Date Stop Date Generic Name NDC Provider MIRTAZAPINE 15 MG TABS Take 1 pill by mouh at bedtime MIRTAZAPINE [id number] Lio Corcoran MD MIRTAZAPINE 7.5 MG TABS take 1 tablet nightly by mouth MIRTAZAPINE 73532024465 Lio Corcoran MD CYMBALTA 30 MG ORAL CAPSULE DELAYED RELEASE PARTICLES TAKE 1 CAPSULE BY MOUTH EVERY NIGHT for 30 days and then stop it (we are weaning this medicine to start new medicine end of Oct) DULOXETINE HCL 57749123907 Lio Corcoran MD CYMBALTA 30 MG ORAL CAPSULE DELAYED RELEASE PARTICLES TAKE 1 CAPSULE BY MOUTH EVERY NIGHT for 30 days and then stop it (we are weaning this medicine to start new medicine end of Oct) DULOXETINE HCL 49090166892 Lio Corcoran MD CYMBALTA 30 MG ORAL CAPSULE DELAYED RELEASE PARTICLES TAKE 1 CAPSULE BY MOUTH EVERY NIGHT (weaning this medicine for 30 days to start new medicine) DULOXETINE HCL 25469788043 Lio Corcoran MD DULOXETINE HCL 60 MG CPEP TAKE 1 CAPSULE BY MOUTH EVERY NIGHT DULOXETINE HCL 31921105766 Lio Corcoran MD MIRTAZAPINE 7.5 MG TABS take 1 tablet nightly by mouth MIRTAZAPINE 07466715725 Lio Corcoran MD CENTRUM SILVER ADULT 50+ TABS TAKE 1 TABLET BY MOUTH EACH DAY MULTIPLE VITAMINS-AGRICULTURAL COMMODITIES GRADER ALS 02356790540 Lio Corcoran MD FISH OIL 1000 MG CAPS TAKE 1 CAPSULE BY MOUTH 2 TIMES A DAY OMEGA-3 FATTY ACIDS 79009188843 Lio Corcoran MD PREVAGEN 10 MG CAPS APOAEQUORIN 61690797681 Lio Corcoran MD DIAZEPAM 5 MG TABS TAKE 1 TABLET BY MOUTH 3 TIMES A DAY NEEDED FOR ANXIETY DIAZEPAM 27253694485 Lio Corcoran MD OXYCODONE HCL 5 MG CAPS TAKE 1 BY MOUTH 3 TIMES A DAY OXYCODONE HCL 86205186795 Lio Corcoran MD SIMVASTATIN 20 MG TABS TAKE 1 TABLET BY MOUTH AT BEDTIME FOR CHOLESTEROL SIMVASTATIN 09013678742 Lio Corcoran MD XARELTO 20 MG TABS TAKE 1 TABLET BY MOUTH ONCE A DAY RIVAROXABAN 38752224248 Lio Corcoran MD OMEPRAZOLE 20 MG CPDR TAKE 1 CAPSULE BY MOUTH ONCE A DAY OMEPRAZOLE 44370106116 Lio Corcoran MD METOPROLOL SUCCINATE ER 25 MG [id number] TAKE 1 TABLET BY MOUTH ONCE A DAY METOPROLOL SUCCINATE 54150649221 Lio Corcoran MD TAMSULOSIN HCL 0.4 MG CAPS TAMSULOSIN HCL 86032962970 Lio Corcoran MD LISINOPRIL 10 MG TABS TAKE 1 TABLET BY MOUTH 1 TIME A DAY LISINOPRIL 79513449246 Lio Corcoran MD AMIODARONE HCL 200 MG TABS TAKE 1 TABLET BY MOUTH TWICE A DAY AMIODARONE HCL 69120412313 Lio Corcoran MD DULOXETINE HCL 60 MG CPEP TAKE 1 CAPSULE BY MOUTH EVERY NIGHT DULOXETINE HCL 21783020332 Lio Corcoran MD Medications Administered No information [...] in Blood ABS NEUTROPH 2947 CELLS/UL 10*3/uL 4595-9783 N Neutrophils [#/volume] in Blood MPV 9.5 [...] Telehealth G202 Medicare Telehealth G202 Medicare Telehealth CPT-36395() Psychotherapy 45m -No [facility]() 05/10/05 G2025 Medicare Ingeniatricshealth [facility]-[id number] Medication Reconciliation CPT-3077F Most recent systolic blood pressure >=140 mm Hg CPT-3078F Most recent diastoli c blood pressure <80 mm Hg CPT-83849() Psychotherapy 45m -No [facility]() 20 03/09/10 CPT-81894() Psychotherapy 45m -No [facility]() 20 04/08/11 CPT-53421() Psychotherapy 60m Crises- No E&M() 202 CPT-37609() Psychotherapy 45m -No [facility]() 20 04/07/19 CPT-1159F Medication list docu mented in medical record [facility] 6399 T1 CBC with diff [facility] 70060 T1 CMP [facility] 77519 T2 Vitamin D 25 Hydroxy 2019 [facility] 23029 T1 TSH reflex to free T4 202 [facility] 927 T1 B12 [facility] 92064 T1 Lipid Panel [facility] 496 T1 HGBA1c [...]
--- OUTSIDE RECORDS SUMMARY | 2025-09-14 13:01 | XMS_ITS | Encounter Summary ---
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 - [facility] Social History Tobacco Use [...] Description 09/19/2025 3:00 PM EST Office Visit [facility] [address] [place] [address] Cheko Heredia MD [address] [address] 12/12/2025 2:15 PM EDT Office Visit [facility] [address] [place] [address] Cheko Heredia MD [address] [place] [address] Scheduled Procedures Name Priority Associated Diagnoses Date/Ti me ABLATION A-FIB Atrial fibrillation with RVR Cardiomyopathy, dilated, nonischemic Essential hypertension documented as of this encounter Visit Diagnoses Not on filedocumented in this encounter Care Teams Chief Clerk Relationship Specialty Start Date End Date Cheko Heredia MD [address] [place] [address] PCP - General Family Medicine 01/10/22 documented as of this encounter
--- OUTSIDE RECORDS SUMMARY | 2025-09-14 13:01 | XMS_ITS | Clinical Summary ---
Author Organization [facility] , [facility] Address [address] [place] [address] Phone Care Team Providers Care Medical Intern Name Role Phone Shanna SUTTON, Pedro TOLENTINO [...] Active Last Documented On 5 1:39AM ; [facility] Plan of Treatment No Plan of Treatment Recorded Assessments Includes: Assessments from this encounter No Assessments Recorded Medical Equipment - Implanted Devices Includes: Current Devices No Medical Equipment Recorded Medications Includes: Medications discussed during this encounter and other current Medications Current Medications (continue as prescribed) Jardiance 10 MG Oral Tablet 10/22/2024 Provider: Diagnosis: Last Documented On 5 2:09PM By Deangelo العلي ; [facility] Albuterol Sulfate HFA 108 (9 0 Base) MCG/ACT Inhalation Aerosol Solution 10/13/2024 Provider: Diagnosis: Last Documented On 5 2:09PM By Deangelo العلي ; [facility] Xarelto 15 MG Oral Tablet 10/13/2024 Provider: Diagnosis: Last Documented On 5 2:09PM By Deangelo العلي ; [facility] Clopidogrel Bisulfate 75 MG Oral Tablet 10/01/2024 Ally dalalder: Diagnosis: Last Documented On 5 2:09PM By Deangelo العلي ; [facility] Pantoprazole Sodium 40 MG Oral Tablet Delayed Release 10/01/2024 Provider: Diagnosis: Last Documented On 5 2:09PM By Deangelo العلي ; [facility] Ranolazine ER 1000 MG Oral Tablet Extended Release 12 Hour 10/01/2024 Provider: Diagnosis: Last Documented On 5 2:09PM By Deangelo العلي ; [facility] Tamsulosin HCl 0.4 MG Oral Capsule 09/21/2024 Provid er: Diagnosis: Last Documented On 5 2:09PM By Deangelo العلي ; [facility] Medications Administered Includes: Administered Medications from this encounter No Administered Medications Recorded Results Includes: Results discussed during this encounter No Results Recorded For Specified Dates History of Present Illness Includes: History of Present Illness from this encounter No History of Present Illness Recorded Social History Description Last Updated Sex - Male 07/27/2025 Last Documented On 5 12:23PM ; [facility] Smoking Status Unknown Procedures and Surgical History Includes: Procedures from this encounter Procedures Code Diagnosis Performing Provider Service Location Service Date Lumbar epidural 44295 Spinal stenosis, lumbar region with neurogenic claudication, Spondylolisthesi s, lumbar region [place] [facility] 06/15/2025 Last Documented On 5 10:30AM ; [facility] Triamcinolone/Kenalog, 10mg per cc J3301 Spinal stenosis, lumbar region with neurogenic claudication, Spondylolisthesis, lumbar region [place] [facility] 06/15/2025 Last Documented On 5 10:30AM ; [facility] Medical History Includes: Medical History [...] ctive Last Documented On 5 1:30PM ; [facility] Care Medical Intern Name (Identifier) Role/Relation Location/Telecom Last Documented By Pedro Otero MD ([id number]) Assigned practitioner (occupation) Last Documented On 07/27/2025 12:23PM ; [facility] ALEX TOLENTINO MD ([id number]) Primary care physician (occupation) [place], [address] tel: Last Documented On 07/27/2025 12:23PM ; [facility], [facility] Encounters Encounter Provider Location (Healthcare Service Location) Date Check-In Time Check-Out Time Diagnosis Encounter Disposition Epidural Steroid [facility] 2024 2:47PM 4:24PM Payer Includes: Active Insurance Policies Plan Name (Payer ID) Coverage Type Member ID Group # Subscriber (ID) Relationship Effective Dates 1 - Medicare Part B [facility] ([id number]) [id number] Mino Hsu Self 2 - Unknown Last Documented On 9 1:12PM ; [facility], [facility] 2 - BCBS [facility] ([id number]) [id number] Mino Hsu Self 07/22/20 16 - Unknown Last Documented On 9 1:12PM ; [facility]
--- OUTSIDE RECORDS SUMMARY | 2025-09-14 13:01 | XMS_ITS | Encounter Summary ---
[facility] Organization [facility] Address [address] [place] [address] Care Team Providers Care Stem Processing Machine Operator Name Role Phone Cheko Heredia MD Primary Care Provider + Encounter Details Date Type Department Care Team (Late st Contact Info) Description 07/25/2025 Readmission Management [facility] [address] [place] [phone] Eve Jeter, RN Social History Tobacco Use Types Packs/Day Years [...] Industry Job Start Date Job End Date [employer] Not on file Not on file Not on file documented as of this encounter Miscellaneous Notes * Outreach Note - Eve Jeter, ERIK - 07/25/2025 6:57 PM EST Prep Survey Flowsheet Row Responses [facility] patient discharged from? Non-BH Is LACE score less than 10 ? Non- Discharge Eligibility [facility] Date of Admission 07/25/25 Date of Discharge 07/25/25 Discharge Disposition Home or Self Care Discharge diagnosis Persistent atrial fibrillation (HCC), Other persistent atrial fibrillation (HCC) Does the patient have one of the following disease processes/diagnoses(primary or secondary)? Other Does the patient have Home health ordered? No Prep survey completed? Yes Eve Mosquera - Registered Nurse documented in this encounter Plan of Treatment Upcoming Encounters Date Type Department Care Team (Late st Contact Info) Description 09/19/2025 3:00 PM EST Office Visit [facility] [address] [place] [address] Cheko Heredia MD [address] [place] [address] 12/12/2025 2:15 PM EDT Office Visit [facility] [address] [place] [address] Cheko Heredia MD [address] [place] [address] Scheduled Procedures Name Priority Associated Diagnoses Date/Ti me ABLATION A-FIB Atrial fibrillation with RVR Cardiomyopathy, dilated, nonischemic Essential hypertension documented as of this encounter Visit Diagnoses Not on filedocumented in this encounter Care Teams Stem Processing Machine Operator Relationship Specialty Start Date End Date Cheko Heredia MD [address] [place] [address] PCP - General Family Medicine 01/10/22 documented as of this encounter
--- OUTSIDE RECORDS SUMMARY | 2025-09-14 13:01 | XMS_ITS | Encounter Summary ---
Author Organization [facility] Address [address] [place] [address] Care Team Providers Care Appraiser Auditor Name Role Phone Cheko Heredia MD Primary Care Provider + Reason for Visit * Reason Comments Med Refill Encounter Details Date Type Department Care Team (Late Contact Info) Description 08/01/2025 Refill [facility] [address] [facility] [address] Cheko Heredia MD [address] [facility] [place] [address] Chronic midline low back pain [...] Industry Job Start Date Job End Date [employer] Not on file Not on file Not on file documented as of this encounter Plan of Treatment Upcoming Encounters Date Type Department Care Team (Late Contact Info) Description 09/19/2025 3:00 PM EST Office Visit [facility] [address] [place] [address] Cheko Heredia MD [address] [place] [address] 12/12/2025 2:15 PM EDT Office Visit [facility] [address] [place] [address] Cheko Heredia MD [address] [place] [address] Scheduled Procedures Name Priority Associated Diagnoses Date/Ti me ABLATION A-FIB Atrial fibrillation with RVR Cardiomyopathy, dilated, nonischemic Essential hypertension documented as of this encounter Visit Diagnoses Diagnosis Chronic midline low back pain without sciatica documented in this encounter Care Teams Appraiser Auditor Relationship Specialty Start Date End Date Cheko Heredia MD [address] [place] [address] PCP - General Family Medicine 01/10/22 documented as of this encounter
--- OUTSIDE RECORDS SUMMARY | 2025-09-14 13:01 | XMS_ITS | Clinical Summary ---
Author Organization [facility] Address [address] [place] [address] Care Team Providers Care Industrial Tractor Driver Name Role Phone Dariusz Vu MD Primary Care Provider [phone] Family History Medical History Relation Name Comments [...] or (1 - 1-dose 75+ series) 2021 [id number] Vaccine ( season) 2025 08/15/2022, 07/20/2021, 11/25/2020, Additional history exists [facility]-Influenza Vaccine (#1) 05/16/202507/15, 06/15/2022, 06/15/2021, Additional history exists [facility]-Diabetes: Hemoglobin A1C Discontinued 08/15/2022, 02/14/2021 HPV Vaccines (No Doses Required) Completed [facility]-HIB Vaccines Aged Out No longer e [...] complete this topic Insurance MEDICARE Care Teams Industrial Tractor Driver Relationship Specialty Start Date End Date Dariusz Vu MD [address] [place] [address] [facility]1 [facility] [place] [id number] PCP - General 01/26/21
--- OUTSIDE RECORDS SUMMARY | 2025-09-14 13:01 | XMS_ITS | Encounter Summary ---
[facility] Address [address] [place] [address] Care Team Providers Care Erp Manager Name Role Phone Cheko Heredia MD Primary Care Provider + Encounter Details Date Type Department Care Team (Late st Contact Info) Description 07/26/2025 Transitional Care Management Telephone Encounter [facility] [address] [place] [phone] Zaida Seo, RN Social History Tobacco Use Types Packs/Day [...] Industry Job Start Date Job End Date [employer] Not on file Not on file Not on file documented as of this encounter Miscellaneous Notes * Outreach Note - Zaida Seo RN - 07/26/2025 2:14 PM EST Images from the original note were not included. Call Center TCM Note Flowsheet Row [facility]es [facility] patient discharged from? [facility] [[facility]] Does the patient have one of the following disease processes/diagnoses(primary or secondary)? Other TCM attempt successful? Yes Call start time 1416 Call end time 1420 Discharge diagnosis Persistent atrial fibrillation (HCC), Other persistent atrial fibrillation (HCC) Watchmens Device Meds reviewed with patient/caregiver? Yes Is the patient having any side effects they believe may be caused by any medication additions or changes? No Does the patient have all medications ordered at discharge? N/A Prescription comments Resumed regular meds Is the patient taking all medications as directed (includes completed medication regime)? Yes Comments Pt will keep appt on 09/12/25 with PCP, declines earlier scheduling Does the patient have an appointment with their PCP within 7-14 days of discharge? No Nursing Interventions Patient desires to follow up with specialty only Has home health visited the patient within 72 hours of discharge? N/A Psychosocial issues? No Did the patient receive a copy of their discharge instructions? Yes Nursing interventions Reviewed instructions with patient What is the patient's perception of their health status since discharge? Same [Pt is doing well after procedure, aware to avoid lifting and aware of site precautions. No chest pain, no palpitations, no issues with site. Some SOA but normal for him. No questions. Cardio appt in place.] Is the patient/caregiver able to teach back signs and symptoms related to disease process for when to call PCP? Yes Is the patient/caregiver able to teach back signs and symptoms related to disease process for when to call 911? Yes TCM call completed? Yes Call end time 1420 ZAIDA Dennison - Registered Nurse 07/26/2025, 14:22 EST documented in this encounter Plan of Treatment Upcoming Encounters Date Type Department Care Team (Late st Contact Info) Description 09/19/2025 3:00 PM EST Office Visit [facility] [address] [phone] Cheko Heredia MD [address] [address] 12/12/2025 2:15 PM EDT Office Visit [facility] [address] [phone] Cheko Heredia MD [address] [place] [address] Scheduled Procedures Name Priority Associated Diagnoses Date/Ti me ABLATION A-FIB Atrial fibrillation with RVR Cardiomyopathy, dilated, nonischemic Essential hypertension documented as of this encounter Visit Diagnoses Not on filedocumented in this encounter Care Teams Erp Manager Relationship Specialty Start Date End Date Cheko Heredia MD [address] [place] [address] PCP - General Family Medicine 01/10/22 documented as of this encounter
--- OUTSIDE RECORDS SUMMARY | 2025-09-14 13:01 | XMS_ITS | Encounter Summary ---
[facility] Address [address] [place] [address] Care Team Providers Care Classroom Coordinator Name Role Phone Cheko Heredia MD Primary Care Provider + Reason for Visit * Reason Comments Med Refill Encounter Details Date Type Department Care Team (Late Contact Info) Description 04/30/2022 Refill [facility] MEDICINE [address] [place] [address] Cheko Heredia MD [address] [place] [address] Chronic pain syndrome; Anxiety about [...] Industry Job Start Date Job End Date [employer] Not on file Not on file Not on file documented as of this encounter Plan of Treatment Upcoming Encounters Date Type Department Care Team (Late Contact Info) Description 09/19/2025 3:00 PM EST Office Visit [facility] MEDICINE [address] [place] [address] Cheko Heredia MD [address] [place] [address] 12/12/2025 2:15 PM EDT Office Visit [facility] [address] [place], [place] [phone] Cheko Heredia MD [address] [place] [address] Scheduled Procedures Name Priority Associated Diagnoses Date/Ti me ABLATION A-FIB Atrial fibrillation with RVR Cardiomyopathy, dilated, nonischemic Essential hypertension documented as of this encounter Visit Diagnoses Diagnosis Chronic pain syndrome Anxiety about health documented in this encounter Additional Health Concerns Assessment Noted Time PHQ-2 Depression Total Score: 5 01/11/20 22 1:44 PM EDT documented as of this encounter Care Teams Classroom Coordinator Relationship Specialty Start Date End Date Cheko Heredia MD [address] [place] [address] PCP - General Family Medicine 01/10/22 documented as of this encounter
--- OUTSIDE RECORDS SUMMARY | 2025-09-14 13:01 | XMS_ITS | Encounter Summary ---
[facility] [address] [place] [address] Care Team Providers Care Operator Prefinish Name Role Phone Cheko Heredia MD Primary Care Provider + Encounter Details Date Type Department Care Team (Late st Contact Info) Description 07/26/2025 Transitional Care Management Telephone Encounter [facility] NURSE CALL C[facility] [address] [place] [phone] Zaida Seo, RN Social History Tobacco [...] Industry Job Start Date Job End Date [employer] Not on file Not on file Not on file documented as of this encounter Miscellaneous Notes * Outreach Note - Zaida Seo RN - 07/26/2025 12:27 PM EST Images from the original note were not included. Call Center TCM Note Flowsheet Row Responses [facility] patient discharged from? [facility] [[facility]] Does the patient have one of the following disease processes/diagnoses(primary or secondary)? Other TCM attempt successful? No [no names listed on VR] Unsuccessful attempts Attempt 1 Call Status Left message ZAIDA Dennison - Registered Nurse 07/26/2025, 12:31 EST documented in this encounter Plan of Treatment Upcoming Encounters Date Type Department Care Team (Late st Contact Info) Description 09/19/2025 3:00 PM EST Office Visit [facility] MEDICINE [address] [place] [address] Cheko Heredia MD [address] [address] 12/12/2025 2:15 PM EDT Office Visit [facility] MEDICINE [address] [place] [address] Cheko Heredia MD [address] [place] [address] Scheduled Procedures Name Priority Associated Diagnoses Date/Ti me ABLATION A-FIB Atrial fibrillation with RVR Cardiomyopathy, dilated, nonischemic Essential hypertension documented as of this encounter Visit Diagnoses Not on filedocumented in this encounter Care Teams Operator Prefinish Relationship Specialty Start Date End Date Cheko Heredia MD [address] [place] [address] PCP - General Family Medicine 01/10/22 documented as of this encounter
--- OUTSIDE RECORDS SUMMARY | 2025-09-14 13:01 | XMS_ITS ---
Care Plan - [facility] Created on: September 14, 2025 Mino Hsu : 1945 Sex: Male Author Organization [facility] Address [address] [place] [address] Phone Care Team Providers Care Financial Project Manager Name Role Phone Shanna SUTTON, Pedro Unavailable [phone] ALEX TOLENTINO MD Primary Care Provider [phone]
--- OUTSIDE RECORDS SUMMARY | 2025-09-14 13:01 | XMS_ITS | Clinical Summary ---
Author Organization [facility] , [facility] Address [address] [place] [address] Phone Care Team Providers Care Utilization Management Um Nurse Name Role Phone Shanna SUTTON, Pedro TOLENTINO [...] Active Last Documented On 5 1:39AM ; [facility] Plan of Treatment - Patient screened for future fall risk: documentation of any fall with injury in past year - Last Documented On 05/25/2025 3:33PM ; [facility], [facility] Instructions to patient Intervention and counseling on cessation of tobacco use Last Documented On 5 1:30PM ; [facility] Lose weight Last Documented On 5 1:30PM ; [facility] Assessments Includes: Assessments from this encounter Findings - Overweight - Last Documented On 05/25/2025 3:33PM ; [facility] Instructions Includes: Instructions from this encounter Instructions to patient Intervention and counseling on cessation of tobacco use Last Documented On 5 1:30PM ; [facility] Lose weight Last Documented On 1:30PM ; [facility] Medical Equipment - Implanted Devices Includes: Current Devices No Medical Equipment Recorded Medications Includes: Medications discussed during this encounter and other current Medications Current Medications (continue as prescribed) Jardiance 10 MG Oral Tablet 10/22/2024 Provider: Diagnosis: Last Documented On 5 2:09PM By Deangelo العلي ; [facility] Albuterol Sulfate HFA 108 (9 0 Base) MCG/ACT Inhalation Aerosol Solution 10/13/2024 Provider: Diagnosis: Last Documented On 5 2:09PM By Deangelo العلي ; [facility] Xarelto 15 MG Oral Tablet 10/13/2024 Provider: Diagnosis: Last Documented On 5 2:09PM By Deangelo العلي ; [facility] Clopidogrel Bisulfate 75 MG Oral Tablet 10/01/2024 P mulugetader: Diagnosis: Last Documented On 5 2:09PM By Deangelo العلي ; [facility] Pantoprazole Sodium 40 MG Oral Tablet Delayed Release 10/01/2024 Provider: Diagnosis: Last Documented On 5 2:09PM By Deangelo العلي ; [facility] Ranolazine ER 1000 MG Oral Tablet Extended Release 12 Hour 10/01/2024 Provider: Diagnosis: Last Documented On 5 2:09PM By Deangelo العلي ; [facility] Tamsulosin HCl 0.4 MG Oral Capsule 09/21/2024 Provid er: Diagnosis: Last Documented On 5 2:09PM By Deangelo العلي ; [facility] Medications Administered Includes: Administered Medications from this encounter No Administered Medications Recorded Vital Signs Includes: Vital Signs from this encounter Vital Name 05/25/2025 01:40P Height (in) 70 Weight (lb) 197 Body Mass Index 28.3 Body Surface Area 2.1 Pain Level 5 Note: pw Last Documented: On 05/25/2025 1:40PM ; [facility] Results Includes: Results discussed during this encounter No Results Recorded For Specified Dates History of Present Illness Includes: History of Present Illness from this encounter NELLI Hsu is a 79 year old male. - Allergy list reviewed - Problem list reviewed - Medication list reviewed - Previous history of new onset pain Injury is not work related or an automotive accident - Patient pain level from 1-10: 5 - Yes, previous treatment. - History of Home Exercise 02/2024-DAILY - History of Injections 04/14/2024 L4-5 AISHWARYA INJ 60% FOR 6-8 WEEKS 11/03/2024 L4-5 AISHWARYA 80% for 2 mths then 70% for 1 mth - - Review of medications documented Mino is a very pleasant 79-year-old gentleman with a history of an L2-L5 lumbar decompression performed several years ago by Dr. Montague. He has been managed for several years with epidural steroid injections and was told by prior spine surgeons that his back could not be fixed surgically. Chief complaint is low back pain, he has occasional leg pain but this is not his main issue. He also has chronic left lateral thigh numbness. He has a history of AFib and is scheduled for watchman procedure. His last epidural steroid injection was on November 03 of this year this year and he states he received 80% relief for 2 and half months. Social History Description Last Updated No recent change in diet 05/25/2025 Last Documented On 5 3:33PM ; [facility] Yes, current smoker. 07/05/2024 Last Documented On 5 1:30PM ; [facility] Exercising regularly 11/22/2020 Last Documented On 5 1:30PM ; [facility] Smoker 11/22/2020 Last Documented On 5 1:30PM ; [facility] No recent change in diet 11/11/2019 Last Documented On 5 1:30PM ; [facility] Not using alcohol 11/11/2019 Last Documented On 5 1:30PM ; [facility] Not using drugs 11/11/2019 Last Documented On 5 1:30PM ; [facility] Tobacco use 06/28/2019 Last Documented On 5 1:30PM ; [facility] Caffeine use 06/28/2019 Last Documented On 5 1:30PM ; [facility] Current smoker 06/28/2019 Last Documented On 5 1:30PM ; [facility] Sex - Male 07/27/2025 Last Documented On 5 12:23PM ; [facility] Smoking Status Unknown Procedures and Surgical History Includes: Procedures from this encounter Procedures Code Diagnosis Performing Provider Service L ocation Service Date X-ray 07/24/2024 CARMEN [facility] ~10/28/2024 Carmen @ [facility] [id number] Last Documented On 5 1:33PM ; [facility] an MRI was performed 2021 [id number] Last Documented On 5 1:33PM ; [facility] Surgical History Last Updated History of heart surgery heart ablation- 07/2021 ~heart stents ~ 07/17/2022 Last Documented On 5 1:30PM ; [facility] History of back surgery 06/28/2019 Last Documented On 5 1:30PM ; [facility] History of total knee arthroplasty 06/28 Last Documented On 5 1:30PM ; [facility] Medical History Includes: Medical History addressed during this encounter Description Last Updated Recent immunization for flu 06/20220 10/2021 Last Documented On 5 1:30PM ; [facility] A fib 07/17/2022 Last Documented On 5 1:30PM ; [facility] History of arthritis 01/02/2022 Last Documented On 5 1:30PM ; [facility] Depression 11/22/2020 Last Documented On 5 1:30PM ; [facility] Recent immunization for pneumococcal pne umonia 201911/22/2020 Last Documented On 5 1:30PM ; [facility], [facility] A recent injection 09/16/2019 - GRACIE SI joint injs. ~10/08/2019-GRACIE SI JOINT INJ ~07/28/19-AISHWARYA L45 11/11/2019 Last Documented On 5 1:30PM ; [facility], [facility] Arthritic joint problems 06/28/2019 Last Documented On 5 1:30PM ; [facility] History of heart disease 06/28/2019 Last Documented On 5 1:30PM ; [facility] Family History Includes: Family History addressed during this encounter Description Last Updated Diabetes mellitus 01/02/2022 Last Documented On 5 1:30PM ; [facility] Family history of cancer 06/28/2019 Last Documented On 5 1:30PM ; [facility] Family history of heart disease 06/28/20 19 Last Documented On 5 1:30PM ; [facility] Review of Systems Includes: Review of Systems from this encounter No Review of Systems Recorded Mental Status Includes: Mental Status from this encounter Description Depression Last Documented On 5 1:30PM ; [facility] Physical Exam Includes: Physical Exam from this encounter Allergies Includes: Active Allergies Substance Type Reaction Onset Date Resolved Date Statu s Sulfa Antibiotics Allergy 06/28/2019 A ctive Last Documented On 5 1:30PM ; [facility] Care Utilization Management Um Nurse Name (Identifier) Role/Relation Location/Telecom Last Documented By Pedro Otero MD ([id number]) Assigned practitioner (occupation) Last Documented On 07/27/2025 12:23PM ; [facility] ALEX TOLENTINO MD ([id number]) Primary care physician (occupation) [place] , [id number] tel: Last Documented On 07/27/2025 12:23PM ; [facility], [facility] Encounters Encounter Provider Location (Healthcare Service Location) Date Check-In Time Check-Out Time Diagnosis Encounter Disposition Follow Up Fredrick Gant PA-C [facility] JANAK 2024 1:19PM 2:01PM Overweight Payer Includes: Active Insurance Policies Plan Name (Payer ID) Coverage Type Member ID Group # Subscriber (ID) Relationship Effective Dates 1 - Medicare Part B [facility] ([id number]) [id number] Mino Hsu Self 2 - Unknown Last Documented On 9 1:12PM ; [facility] 2 - BCBS [facility] ([id number]) [id number] Mino Hsu Self 07/22/20 16 - Unknown Last Documented On 9 1:12PM ; [facility], [facility] Clinical Notes Includes: Clinical Notes from this encounter * Progress note Date Encounter Last Documented by 05/25/2025 Follow Up Last documented on 05/25/2025; 3:33 PM, Fredrick Flores; [facility] Active Problems & Conditions - Lower Back Pain Chief Complaint - LOW BACK PAIN Referred Here Referred by. History of Present Illness Mino Hsu is a 79 year old male. - Allergy list reviewed - Problem list reviewed - Medication list reviewed - Previous history of new onset pain Injury is not work related or an automotive accident - Patient pain level from 1-10: 5 - Yes, previous treatment. - History of Home Exercise 02/2024-DAILY - History of Injections 04/14/2024 L4-5 AISHWARYA INJ 60% FOR 6-8 WEEKS 11/03/2024 L4-5 AISHWARYA 80% for 2 mths then 70% for 1 mth - - Review of medications documented Mino is a very pleasant 79-year-old gentleman with a history of an L2-L5 lumbar decompression performed several years ago by Dr. Montague. He has been managed for several years with epidural steroid injections and was told by prior spine surgeons that his back could not be fixed surgically. Chief complaint is low back pain, he has occasional leg pain but this is not his main issue. He also has chronic left lateral thigh numbness. He has a history of AFib and is scheduled for watchman procedure. His last epidural steroid injection was on November 03 of this year this year and he states he received 80% relief for 2 and half months. Current Medication - Albuterol Sulfate HFA 108 [...] pneumococcal pneumonia 2019. Diagnoses: Heart disease. Arthritis. Depressive disorder A fib. Surgical: - Heart surgery heart ablation-07/2021 heart stents - Back surgery - Total knee arthroplasty Social History Yes, current smoker. Current diet: No recent change in diet. No recent change in diet. Behavioral: Current smoker. Caffeine: Caffeine use. Tobacco use: Smoker. Alcohol: Not using alcohol. Drug Use: Not using drugs. Habits: Exercising regularly. Allergies - Sulfa Antibiotics Family History Malignant neoplasm Heart disease Diabetes mellitus Physical Findings - Vitals taken 05/25/2025 01:40 pm pw Height 70 in Weight 197 lbs Body Mass Index 28.3 kg/m2 Body Surface Area 2.1 m2 Pain Level 5 General: Alert and Oriented A&Ox3 Focused Musculoskeletal Exam of the Spine: Patient is able to ambulate in the room without assistive device No focal tenderness to palpation in the Lumbar Spine Motor HF KE AD EHL GS Right 5/5 5/5 5/5 5/5 5/5 Left 5/5 5/5 5/5 5/5 5/5 Sensation L2 L3 L4 L5 S1 Right 2 2 2 2 2 Left 2 2 2 2 2 Patellar reflex is 2+ bilaterally Achilles reflex is 2+ bilaterally No ankle clonus Symmetric, palpable posterior tibialis pulse bilaterally User Defined 5 Plan for repeat L5-S1 epidural steroid injection. It appears there was difficulty accessing the L4-L5 interlaminar space due to post surgical scar tissue during prior epidural steroid injection procedures. Patient is agreeable with the treatment plan, all questions were answered during today's visit. Assessment - Overweight Previous Tests Imaging: X-Ray: X-ray 07/24/2024 CARMEN O 10/28/2024 EKATERINApine @ [facility]. MRI Scan: An MRI was performed 2021. Counseling/Education - Tobacco use - Use of tobacco assessment performed - Intervention and counseling on cessation of tobacco use - Lose weight Plan - Patient screened for future fall risk: documentation of any fall with injury in past year Notes This dictation was done with voice recognition software and may contain errors and omissions. Care Team - ALEX TOLENTINO MD - CHAMFERING MACHINE OPERATOR Health Reminders - Assess BMI satisfied 05/25/2025. - Assess Tobacco Use satisfied 06/28/2019. - Follow Up Plan BMI Management satisfied 05/25/2025. - Smoking & Tobacco Cessation Intervention and Counseling satisfied 05/25/2025.
--- OUTSIDE RECORDS SUMMARY | 2025-09-14 13:01 | XMS_ITS ---
Author Organization [facility] , [facility] Address [address] [place] [address] Phone Care Team Providers Care Senior Qualitative Researcher Name Role Phone Shanna SUTTON, Pedro Unavailable Unavailable RANDA SUTTON, ALEX Primary Care Provider [phone] Reason for Referral 04/13/2024 Encounter for Phone Call Date Recorded Target Due Date Referral Type Referring Prov ider Reason For Referral 04/13/2024 KEATON SHERMAN PA-C referral to physician Last Documented On 4 12:52PM ; [facility], [facility] 03/03/2024 Encounter for Follow Up Date Recorded Target Due Date Referral Type Referring Prov ider Reason For Referral 03/03/2024 KEATON SHERMAN PA-C referral to physician Last Documented On 4 1:29PM ; [facility], [facility] 07/24/2023 Encounter for Follow Up Date Recorded Target Due Date Referral Type Referring Prov ider Reason For Referral 07/24/2023 KEATON SHERMAN PA-C referral to physician Last Documented On 3 2:35PM ; [facility], [facility] 08/21/2022 Encounter for Follow Up Date Recorded Target Due Date Referral Type Referring Prov ider Reason For Referral 08/21/2022 KEATON SHERMAN PA-C referral to physician Last Documented On 2 1:41PM ; [facility], [facility] 07/17/2022 Encounter for Follow Up Date Recorded Target Due Date Referral Type Referring Prov ider Reason For Referral 07/17/2022 KEATON SHERMAN PA-C referral to physician Last Documented On 2 3:13PM ; [facility], [facility] Problems Includes: Active, inactive, and resolved Problems All Visits Onset Date Date of Diagnosis Resolved Date Provider Condition Status Lower Back Pain 06/28/2019 06/28/2019 Pedro Otero MD Active Last Documented On 5 1:39AM ; [facility], [facility] Plan of Treatment Findings Encounter Date Patient screened for future fall risk: documentation of any fall with injury in past year Follow Up with Fredrick Gant PA-C 05/25/2025 Last Documented On 5 1:30PM ; [facility], [facility] Patient screened for future fall risk: documentation of any fall with injury in past year Follow Up with KEATON SHERMAN PA-C 10/28/2024 Last Documented On 5 2:09PM ; [facility], [facility] Patient screened for future fall risk: documentation of any fall with injury in past year Follow Up with KEATON SHERMAN PA-C 07/05/2024 Last Documented On 4 2:57PM ; [facility], [facility] Patient screened for future fall risk: documentation of any fall with injury in past year Phone Call with KEATON SHERMAN PA-C 04/13/2024 Last Documented On 4 12:52PM ; [facility] Patient screened for future fall risk: documentation of any fall with injury in past year Follow Up with KEATON SHERMAN PA-C 03/03/2024 Last Documented On 4 1:33PM ; [facility], [facility] Pending Tests Order Diagnosis Results Due Ordering P rovider Radiology - MRI MRI Lumbar Spine 07/31/22 DANIEL SHERMAN PA-C Last Documented On 2 3:35PM ; [facility], [facility] Instructions to patient Intervention and counseling on cessation of tobacco use Last Documented On 5 1:30PM ; [facility], [facility] Lose weight Last Documented On 5 1:30PM ; [facility], [facility] Intervention and counseling on cessation of tobacco use Last Documented On 5 2:09PM ; [facility], [facility] Lose weight Last Documented On 5 2:09PM [...] use Last Documented On 9 2:21PM ; [facility] Education and Decision Aids were provided during visit for: Discussed concerns about tob acco use Last Documented On 1 1:49PM ; [facility] Health seminar on smoking ce ssation Last Documented On 1 1:49PM ; [facility] Discussed concerns about tob acco use Last Documented On 0 1:56PM ; [facility] Health seminar on smoking ce ssation Last Documented On 0 1:56PM ; [facility] Discussed concerns about tob acco use Last Documented On 0 2:13PM ; [facility] Health seminar on smoking ce ssation Last Documented On 0 2:13PM ; [facility] Discussed concerns about tob acco use Last Documented On 9 10:54AM ; [facility] Health seminar on smoking ce ssation Last Documented On 9 11:59AM ; [facility] Discussed concerns about tob acco use Last Documented On 9 2:21PM ; [facility] Assessments Includes: Assessments for all patient encounters Findings Encounter Date Overweight Follow Up with Fredrick Gant P A-C 05/25/2025 Last Documented On 5 1:30PM ; [facility] Overweight Follow Up with KEATON SHERMAN PA -C 10/28/2024 Last Documented On 5 2:09PM ; [facility] Overweight Follow Up with KEATON SHERMAN PA -C 07/05/2024 Last Documented On 4 2:57PM ; [facility] Overweight Phone Call with KEATON SHERMAN P A-C 04/13/2024 Last Documented On 4 12:52PM ; [facility] Overweight Follow Up with KEATON SHERMAN PA -C 03/03/2024 Last Documented On 4 1:29PM ; [facility] Overweight Follow Up with KEATON SHERMAN PA -C 07/24/2023 Last Documented On 3 3:15PM ; [facility] Instructions Includes: Instructions for all patient encounters Instructions to patient Intervention and counseling on cessation of tobacco use Last Documented On 5 1:30PM ; [facility] Lose weight Last Documented On 5 1:30PM ; [facility] Intervention and counseling [...] use Last Documented On 9 10:54AM ; [facility], [facility] Instructions for patient to see pcp for bp Last Documented On 9 4:11PM ; [facility], [facility] Intervention and counseling on cessation of tobacco use Last Documented On 9 2:21PM ; [facility], [facility] Education and Decision Aids were provided during visit for: Discussed concerns about tob acco use Last Documented On 1 1:49PM ; [facility], [facility] Health seminar on smoking ce ssation Last Documented On 1 1:49PM ; [facility], [facility] Discussed concerns about tob acco use Last Documented On 0 1:56PM ; [facility], [facility] Health seminar on smoking ce ssation Last Documented On 0 1:56PM ; [facility], [facility] Discussed concerns about tob acco use Last Documented On 0 2:13PM ; [facility], [facility] Health seminar on smoking ce ssation Last Documented On 0 2:13PM ; [facility], [facility] Discussed concerns about tob acco use Last Documented On 9 10:54AM ; [facility], [facility] Health seminar on smoking ce ssation Last Documented On 9 11:59AM ; [facility], [facility] Discussed concerns about tob acco use Last Documented On 9 2:21PM ; [facility], [facility] Medical Equipment - Implanted Devices Includes: Current and historical Devices No Medical Equipment Recorded Medications Includes: Current and historical Medications Current Medications (continue as prescribed) Jardiance 10 MG Oral Tablet 10/22/2024 Provider: Diagnosis: Last Documented On 5 2:09PM By Deangelo العلي ; [facility], [facility] Albuterol Sulfate HFA 108 (9 0 Base) MCG/ACT Inhalation Aerosol Solution 10/13/2024 Provider: Diagnosis: Last Documented On 5 2:09PM By Deangelo العلي ; [facility] Xarelto 15 MG Oral Tablet 10/13/2024 Provider: Diagnosis: Last Documented On 5 2:09PM By Deangelo العلي ; [facility], [facility] Clopidogrel Bisulfate 75 MG Oral Tablet 10/01/2024 P mulugetader: Diagnosis: Last Documented On 5 2:09PM By Deangelo العلي ; [facility], [facility] Pantoprazole Sodium 40 MG Oral Tablet Delayed Release 10/01/2024 Provider: Diagnosis: Last Documented On 5 2:09PM By Deangelo العلي ; [facility], [facility] Ranolazine ER 1000 MG Oral Tablet Extended Release 12 Hour 10/01/2024 Provider: Diagnosis: Last Documented On 5 2:09PM By Deangelo العلي ; [facility], [facility] Tamsulosin HCl 0.4 MG Oral Capsule 09/21/2024 Provid er: Diagnosis: Last Documented On 5 2:09PM By Deangelo العلي ; [facility], [facility] Past Medications on file Prevagen 10 MG Oral Capsule 07/17/2022 - 10/28/2024 Pr ovider: Diagnosis: Last Documented On 5 2:09PM By Deangelo العلي ; [facility], [facility] Natural Fish Oil 1000 MG Oral Capsule 07/17/2022 - 10/28/2024 Provider: Diagnosis: Last Documented On 5 2:09PM By Deangelo العلي ; [facility], [facility] Daily Fiber 0.52 GM Oral Capsule 07/17/2022 - 10/16 Provider: Diagnosis: Last Documented On 5 2:09PM By Deangelo العلي ; [facility], [facility] Xarelto 20 MG Oral Tablet 07/17/2022 - 10/28/2024 Prov ider: Diagnosis: Last Documented On 5 2:09PM By Deangelo العلي ; [facility], [facility] diazePAM 5 MG Oral Tablet 07/16/2022 - 10/28/2024 Prov ider: ALEX TOLENTINO MD Diagnosis: Last Documented On 5 2:08PM By Deangelo العلي ; [facility], [facility] Stiolto Respimat 2.5-2.5 MCG /ACT Inhalation Aerosol Solution 07/15/2022 - 10/28/2024 Provider: ALEX TOLENTINO MD Diagnosis: Last Documented On 5 2:08PM By Deangelo العلي ; [facility], [facility] Albuterol Sulfate HFA 108 (9 0 Base) MCG/ACT Inhalation Aerosol Solution 07/15/2022 - 10/28/2024 Provider: ALEX TOLENTINO MD Diagnosis: Last Documented On 5 2:08PM By Deangelo العلي ; [facility], [facility] Clopidogrel Bisulfate 75 MG Oral Tablet 07/04/2022 - 10/28/2024 Provider: ALEX TOLENTINO MD Diagnosis: Last Documented On 5 2:08PM By Deangelo العلي ; [facility], [facility] Ranolazine ER 500 MG Oral Ta blet Extended Release 12 Hour 06/28/2022 - 10/28/2024 Provider: Diagnosis: Last Documented On 5 2:08PM By Deangelo العلي ; [facility], [facility] Pantoprazole Sodium 40 MG Or al Tablet Delayed Release 06/28/2022 - 10/28/2024 Provider: ALEX TOLENTINO MD Diagnosis: Last Documented On 5 2:08PM By Deangelo العلي ; [facility], [facility] Carvedilol 3.125 MG Oral Tablet 06/28/2022 - Provider: Diagnosis: Last Documented On 5 2:08PM By Deangelo العلي ; [facility], [facility] Tamsulosin HCl 0.4 MG Oral Capsule 06/20/2022 - 2024 Provider: CRISTOBAL CROSS MD Diagnosis: Last Documented On 5 2:08PM By Deangelo العلي ; [facility], [facility] oxyCODONE-Acetaminophen 5-32 5 MG Oral Tablet 06/20/2022 - 10/28/2024 Provider: ALEX TOLENTINO MD Diagnosis: Last Documented On 5 2:08PM By Deangelo العلي ; [facility], [facility] DULoxetine HCl 60 MG Oral Ca psule Delayed Release Particles 06/20/2022 - 10/28/2024 Provider: ALEX ANDERSON MD Diagnosis: Last Documented On 5 2:08PM By Deangelo العلي ; [facility] DULoxetine HCl 30 MG Oral Ca psule Delayed Release Particles 05/21/2022 - 10/28/2024 Provider: ALEX ANDERSON MD Diagnosis: Last Documented On 5 2:08PM By Deangelo العيل ; [facility] Atorvastatin Calcium 10 MG O ral Tablet 05/14/2022 - 10/28/2024 Provider: ALEX TOLENTINO MD Diagnosis: Last Documented On 5 2:08PM By Deangelo العلي ; [facility] Clopidogrel Bisulfate 75 MG Oral Tablet 04/19/2022 - 10/28/2024 Provider: ALEX TOLENTINO MD Diagnosis: Last Documented On 5 2:08PM By Deangelo العلي ; [facility], [facility] Entresto 49-51 MG Oral Tablet 01/02/2022 - 04/02/2022 Provider: Diagnosis: Last Documented On 2 1:44PM By Bienvenido Bobby ; [facility], [facility] Pantoprazole Sodium 40 MG Or al Tablet Delayed Release 01/02/2022 - 07/17/2022 Provider: Diagnosis: Last Documented On 2 4:25PM By Holland Sherman ; [facility], [facility] Atorvastatin Calcium 10 MG Oral Tablet 01/02/2022 - Provider: Diagnosis: Last Documented On 2 4:25PM By Holland Sherman ; [facility] Mirtazapine 15 MG Oral Tablet 01/02/2022 - 07/17/2022 Provider: Diagnosis: Last Documented On 2 4:25PM By Holland Sherman ; [facility] Tamsulosin HCl 0.4 MG Oral Capsule 01/02/2022 - 2021 Provider: Diagnosis: Last Documented On 2 4:26PM By Holland Sherman ; [facility] Plavix 75 MG Oral Tablet 01/02/2022 - 04/26/2022 Provi [place]: Diagnosis: Last Documented On 2 11:43AM By Mallory Farmer ; [facility] Metoprolol Succinate ER 25 M G Oral Tablet Extended Release 24 Hour 01/02/2022 - 07/17/2022 Provider: Diagnosis: Last Documented On 2 4:25PM By Holland Sherman ; [facility] Bumetanide 1 MG Oral Tablet 01/02/2022 - 07/17/2022 Pr ovider: Diagnosis: Last Documented On 2 4:25PM By Holland Sherman ; [facility] Daily Fiber 0.52 GM Oral Capsule 01/02/2022 - 110 10/2021 Provider: Diagnosis: Last Documented On 2 4:26PM By Holland Sherman ; [facility] Prevagen 10 MG Oral Capsule 01/02/2022 - 07/17/2022 Pr ovider: Diagnosis: Last Documented On 2 4:25PM By Holland Sherman ; [facility] Natural Fish Oil 1000 MG Oral Capsule 01/02/2022 - 07/17/2022 Provider: Diagnosis: Last Documented On 2 4:26PM By Holland Sherman ; [facility] Xarelto 20 MG Oral Tablet 01/02/2022 - 07/17/2022 Prov ider: Diagnosis: Last Documented On 2 4:25PM By Holland Sherman ; [facility] diazePAM 5 MG Oral Tablet 12/27/2021 - 07/17/2022 Prov ider: ALEX TOLENTINO MD Diagnosis: Last Documented On 2 4:26PM By Holland Sherman ; [facility] oxyCODONE-Acetaminophen 5-32 5 MG Oral Tablet 11/26/2021 - 07/17/2022 Provider: ALEX TOLENTINO MD Diagnosis: Last Documented On 2 4:26PM By Holland Sherman ; [facility] Centrum Silver Oral Tablet 11/22/2020 - 07/17/2022 Pro vider: Diagnosis: Last Documented On 2 4:26PM By Holland Sherman ; [facility] EQL Fish Oil 1000 MG Oral Capsule 11/22/2020 - 022 Provider: Diagnosis: Last Documented On 2 4:26PM By Holland Sherman ; [facility] Prevagen 10 MG Oral Capsule 11/22/2020 - 07/17/2022 Pr ovider: Diagnosis: Last Documented On 2 4:27PM By Holland Sherman ; [facility] diazePAM 10 MG Oral Tablet 11/22/2020 - 07/17/2022 Pro vider: Diagnosis: Last Documented On 2 4:26PM By Holland Sherman ; [facility] Tamsulosin HCl 0.4 MG Oral Capsule 11/22/2020 - 2021 Provider: Diagnosis: Last Documented On 2 4:26PM By Holland Sherman ; [facility] Mirtazapine 7.5 MG Oral Tablet 11/22/2020 - 07/17/2022 Provider: Diagnosis: Last Documented On 2 4:25PM By Holland Sherman ; [facility] Xarelto 20 MG Oral Tablet 06/28/2019 - 01/02/2022 Prov ider: Diagnosis: Last Documented On 2 3:53PM By Maria Luisa Hampton ; [facility] Metoprolol Succinate 25 MG O ral Capsule ER 24 Hour Sprinkle 06/28/2019 - 01/02/2022 Provider: Diagnosis: Last Documented On 2 4:26PM By Maria Luisa Hampton ; [facility] Cyclobenzaprine HCl 10 MG Oral Tablet 06/25/2019 - Provider: Diagnosis: Last Documented On 2 4:27PM By Maria Luisa Hampton ; [facility] predniSONE 1 MG Oral Tablet 06/25/2019 - 01/02/2022 Pr ovider: Diagnosis: Last Documented On 2 4:27PM By Maria Luisa Hampton ; [facility] oxyCODONE HCl 5 MG Oral Tablet 06/18/2019 - 01/02/2022 Provider: Diagnosis: Last Documented On 2 4:27PM By Maria Luisa Hampton ; [facility] DULoxetine HCl 60 MG Oral Ca psule Delayed Release Particles 06/02/2019 - 01/02/2022 Provider: Diagnosis: Last Documented On 2 4:22PM By Maria Luisa Hampton ; [facility] Amiodarone HCl 200 MG Oral Tablet 06/02/2019 - 022 Provider: Diagnosis: Last Documented On 2 4:22PM By Maria Luisa Hampton ; [facility] Simvastatin 20 MG Oral Tablet 05/26/2019 - 01/02/2022 Provider: Diagnosis: Last Documented On 2 4:22PM By Maria Luisa Hampton ; [facility] Omeprazole 20 MG Oral Tab let Delayed Release Disintegrating 04/20/2019 - 01/02/2022 Provider: Diagnosis: Last Documented On 2 4:21PM By Maria Luisa Hampton ; [facility] Lisinopril 10 MG Oral Tablet 04/06/2019 - 01/02/2022 Ally dalalder: Diagnosis: Last Documented On 2 4:21PM By Maria Luisa Hampton ; [facility] Medications Administered Includes: Administered Medications in patient's chart No Administered Medications Recorded Vital Signs Includes: Vital Signs from 09/14/2024 through 09/14/2025 Vital Name 05/25/2025 01:40P 10/28/2024 02: 25P Height (in) 70 70 Weight (lb) 197 210 Body Mass Index 28.3 30.1 Body Surface Area 2.1 2.1 Pain Level 5 5 Note: pw cd Last Documented: On 05/25/2025 1:40PM ; [facility] On 10/28/2024 2:25PM ; [facility] Results Includes: Results from 09/14/2024 through 09/14/2025 No Results Recorded For Specified Dates Social History Description Last Updated No recent change in diet 05/25/2025 Last Documented On 5 3:33PM ; [facility] Yes, current smoker. 07/05/2024 Last Documented On 4 3:47PM ; [facility] Is a smoker 04/02/2022 Last Documented On 2 2:04PM ; [facility] Exercising regularly 11/22/2020 Last Documented On 1 10:20PM ; [facility] Yes, current smoker. 11/22/2020 Last Documented On 1 10:20PM ; [facility] Smoker 11/22/2020 Last Documented On 1 10:20PM ; [facility], [facility] No recent change in diet 11/11/2019 Last Documented On 0 3:17PM ; [facility], [facility] Not using alcohol 11/11/2019 Last Documented On 0 3:17PM ; [facility] Not using drugs 11/11/2019 Last Documented On 0 3:17PM ; [facility] Tobacco use 06/28/2019 Last Documented On 9 11:11AM ; [facility] Smoking status : Current everyday smoker 06/28/2019 Last Documented On 9 11:11AM ; [facility] Caffeine use 06/28/2019 Last Documented On 9 11:11AM ; [facility] Current smoker 06/28/2019 Last Documented On 9 11:11AM ; [facility] Sex - Male 07/27/2025 Last Documented On 5 12:23PM ; [facility] Procedures and Surgical History Includes: Procedures from 09/14/2024 through 09/14/2025 Procedures Code Diagnosis Performing Provider Service Location Service Date Triamcinolone/Ke nalog, 10mg per cc J3301 Spinal stenosis, lumbar region with neurogenic claudication, Spondylolisthesi s, lumbar region [place] CERTIFIED CYTOTECHNOLOGIST [facility] 06/15/2025 Last Documented On 5 10:30AM ; [facility] Lumbar epidural 31867 Spinal stenosis, lumbar region with neurogenic claudication, Spondylolisthesis, lumbar region [place] CERTIFIED CYTOTECHNOLOGIST [facility] 06/15/2025 Last Documented On 5 10:30AM ; [facility] Triamcinolone/Kenalog, 10mg per cc J3301 Spinal stenosis, lumbar region with neurogenic claudication [place] CERTIFIED CYTOTECHNOLOGIST [facility] 11/03/2024 Last Documented On 5 2:22PM ; [facility] Lumbar epidural 00359 Spinal stenosis, lumbar region with neurogenic claudication [place] CRNA [facility] 11/03/2024 Last Documented On 5 2:22PM ; [facility] X-RAY EXAM OF LOWER SPINE 2-3 VIEWS LIMITED [id number] Spinal stenosis, lumbar region with neurogenic claudication KEATON SHERMAN PA-C [facility] 10/28/2024 Last Documented On 5 2:06PM ; [facility] Surgical History Last Updated History of heart surgery heart ablation- 07/2021 ~heart stents ~ 07/17/2022 Last Documented On 2 4:27PM ; [facility] History of back surgery 06/28/2019 Last Documented On 9 11:11AM ; [facility] History of total knee arthroplasty 06/28 Last Documented On 9 11:11AM ; [facility] Medical History Includes: Medical History in patient's chart Description Last Updated Recent immunization for flu 06/2022 110 10/2021 Last Documented On 2 4:27PM ; [facility] A fib 07/17/2022 Last Documented On 2 4:27PM ; [facility] History of arthritis 01/02/2022 Last Documented On 2 9:33AM ; [facility] Depression 11/22/2020 Last Documented On 1 10:20PM ; [facility] Recent immunization for pneumococcal pne umonia 201911/22/2020 Last Documented On 1 10:20PM ; [facility] A recent injection 09/16/2019 - GRACIE SI joint injs. ~10/08/2019-GRACIE SI JOINT INJ ~07/28/19-AISHWARYA L45 11/11/2019 Last Documented On 0 3:17PM ; [facility] Arthritic joint problems 06/28/2019 Last Documented On 9 11:11AM ; [facility] History of depression 06/28/2019 Last Documented On 9 11:11AM ; [facility] History of heart disease 06/28/2019 Last Documented On 9 11:11AM ; [facility] Family History Includes: Family History in patient's chart Description Last Updated Diabetes mellitus 01/02/2022 Last Documented On 2 9:33AM ; [facility] Family history of cancer 06/28/2019 Last Documented On 9 11:11AM ; [facility] Family history of heart disease 06/28/20 19 Last Documented On 9 11:11AM ; [facility] Mental Status Description Depression Last Documented On 5 1:30PM ; [facility] Depression Last Documented On 5 2:09PM ; [facility] Depression Last Documented On 4 2:53PM ; [facility] No anxiety Last Documented On 4 12:52PM ; [facility] Depression Last Documented On 4 12:52PM ; [facility] No anxiety Last Documented On 4 1:29PM ; [facility] Depression Last Documented On 4 1:29PM ; [facility] No anxiety Last Documented On 3 2:35PM ; [facility] No anxiety Last Documented On 2 1:41PM ; [facility] [facility] Depression Last Documented On 2 1:41PM ; [facility] No anxiety Last Documented On 2 3:06PM ; [facility] No anxiety Last Documented On 2 1:37PM ; [facility] Depression Last Documented On 2 1:37PM ; [facility] No anxiety Last Documented On 2 1:51PM ; [facility] No anxiety Last Documented On 1 1:49PM ; [facility] Depression Last Documented On 1 10:20PM ; [facility] No anxiety Last Documented On 0 1:56PM ; [facility] No anxiety Last Documented On 0 2:13PM ; [facility] No anxiety Last Documented On 9 10:54AM ; [facility] No anxiety Last Documented On 9 2:20PM ; [facility] Immunizations Includes: Immunizations in patient's chart Vaccine Dose # Date Site Reaction(s) Status Source Influenza 1 06/15/2021 Complete (Reported) Patient Last Documented On 2 2:23PM ; [facility] Influenza 2 06/15/2022 Complete (Reported) Patient Last Documented On 2 3:17PM ; [facility] PCV (Pneumovax 23) 1 09/15/2019 Complete ( Reported) Patient Last Documented On 2 2:23PM ; [facility] PCV (Pneumovax 23) 2 04/02/2022 Complete (Refused - Patient objection) [facility] Last Documented On 2 1:37PM ; [facility] Td 1 04/02/2022 Complete (Refused - Patient objection) [facility] Last Documented On 2 1:37PM ; [facility] Allergies Includes: Active, inactive, and resolved Allergies Substance Type Reaction Onset Date Resolved Date Statu s Sulfa Antibiotics Allergy 06/28/2019 A ctive Last Documented On 5 1:30PM ; [facility] Care Senior Qualitative Researcher Name (Identifier) Role/Relation Location/Telecom Last Documented By Pedro Otero MD ([id number]) Assigned practitioner (occupation) Last Documented On 07/27/2025 12:23PM ; [facility] ALEX TOLENTINO MD ([id number]) Primary care physician (occupation) [place], [address] tel: Last Documented On 07/27/2025 12:23PM ; [facility] Encounters Includes: Encounters from 09/14/2024 through 09/14/2025 Encounter Provider Location (Healthcare Service Location) Date Check-In Time Check-Out Time Diagnosis Encounter Disposition Epidural Steroid Injection Glen Lim CRNA 202405/25/2025 4:19PM 05/25/2025 11:59PM Epidural Steroid Injection Glen Lim CERTIFIED CYTOTECHNOLOGIST [facility] 2024 2:47PM 4:24PM Follow Up Fredrick Gant PA-C [facility] 2024 1:19PM 2:01PM Overweight Epidural Steroid Injection Glen Renae Carina MOLINA 202411/03/2024 8:51AM 11/03/2024 11:59PM Epidural Steroid Injection Glen Lim [facility] 2024 2:03PM 3:19PM Follow Up KEATON SHERMAN PA-C [facility] 2024 1:51PM 2:32PM Overweight Payer Includes: Active Insurance Policies Plan Name (Payer ID) Coverage Type Member ID Group # Subscriber (ID) Relationship Effective Dates 1 - Medicare Part B [facility] ([id number]) [id number] Mino Hsu [facility] 2 - Unknown Last Documented On 9 1:12PM ; [facility] 2 - BCBS [facility] ([id number]) [id number] Mino Hsu [facility] 07/22/20 16 - Unknown Last Documented On 9 1:12PM ; [facility] Clinical Notes Includes: Signed Clinical Notes starting from 08/29/2022 * Progress note Date Encounter Last Documented by 05/25/2025 Follow Up Last documented on 05/25/2025; 3:33 PM, Fredrick Flores; [facility] Active Problems & Conditions - Lower [...] Overweight Previous Tests Imaging: X-Ray: X-ray 07/24/2024 [facility] 10/28/2024 [facility] @ [facility]. MRI Scan: An MRI was performed 2021. [...] Care Team - ALEX TOLENTINO MD - [employer] SUPERVISOR Health Reminders - Assess BMI satisfied 05/25/2025. - Assess Tobacco Use satisfied 06/28/2019. - Follow Up Plan BMI Management satisfied 05/25/2025. - Smoking & Tobacco Cessation Intervention and Counseling satisfied 05/25/2025. * Progress note Date Encounter Last Documented by 10/28/2024 Follow Up Last documented on 11/22/2024; 9:54 AM, KEATON Butt; [facility], [facility] Active Problems & Conditions - Lower [...] stenosis. Previous Tests Imaging: X-Ray: X-ray 07/24/2024 [facility]. Counseling/Education - Tobacco use - Use of [...] Care Team - ALEX TOLENTINO MD - [employer] SUPERVISOR Health Reminders - Assess BMI satisfied 10/28/2024. - Assess Tobacco Use satisfied 10/28/2024. - Follow Up Plan BMI Management satisfied 10/28/2024. - Smoking & Tobacco Cessation Intervention and Counseling satisfied 10/28/2024.
--- OUTSIDE RECORDS SUMMARY | 2025-09-14 13:01 | XMS_ITS | Encounter Summary ---
[facility] Address [address] [place] [address] Care Team Providers Care Mercury Cracking Tester Name Role Phone Cheko Heredia MD Primary Care Provider + Reason for Visit * Reason Onset Date Comments Med Refill 08/15/2025 Encounter Details Date Type Department Care Team (Late st Contact Info) Description 08/15/2025 Refill [facility] [address] [place] [address] Cheko Heredia MD [address] [place] [address] Chronic pain syndrome; Spondylosis of [...] Industry Job Start Date Job End Date [employer] Not on file Not on file Not on file documented as of this encounter Miscellaneous Notes * Telephone Encounter - Kay Oneil RegSched Rep - 08/15/2025 10:42 AM EST Incoming Refill Request Medication requested (name and dose): OxyCODONE-acetaminophen (PERCOCET) 5-325 MG per tablet Pharmacy where request should be sent: [facility] Additional details provided by patient: REQUESTING REFILL ONLY A COUPLE PILLS LEFT Best call back number: [phone] Does the patient have less than a 3 day supply: [x] Yes [] No Charlie Awan Rep 08/15/25, 10:43 EST documented in this encounter Plan of Treatment Upcoming Encounters Date Type Department Care Team (Late st Contact Info) Description 09/19/2025 3:00 PM EST Office Visit [facility] [address] [place] [address] Cheko Heredia MD [address] [place] [address] 12/12/2025 2:15 PM EDT Office Visit [facility] [address] [place] [address] Cheko Heredia MD [address] [place] [address] Scheduled Procedures Name Priority Associated Diagnoses Date/Ti me ABLATION A-FIB Atrial fibrillation with RVR Cardiomyopathy, dilated, nonischemic Essential hypertension documented as of this encounter Visit Diagnoses Diagnosis Chronic pain syndrome Spondylosis of lumbar region without myelopathy or radiculopathy documented in this encounter Care Teams Mercury Cracking Tester Relationship Specialty Start Date End Date Cheko Heredia MD [address] [place] [address] PCP - General Family Medicine 01/10/22 documented as of this encounter
--- OUTSIDE RECORDS SUMMARY | 2025-09-14 13:01 | XMS_ITS | Encounter Summary ---
[facility] Organization [facility] Address [address] [place] [id number] Care Team Providers Care 3Rd Pressman Name Role Phone Cheko Heredia MD Primary Care Provider + Encounter Details Date Type Department Care Team (Latest Contact Info) Description 08/05/2025 Travel Social History Tobacco Use Types Packs/Day [...] Industry Job Start Date Job End Date [employer] Not on file Not on file Not on file documented as of this encounter Plan of Treatment Upcoming Encounters Date Type Department Care Team (Late st Contact Info) Description 09/19/2025 3:00 PM EST Office Visit [facility] [address] [place] [address] Cheko Heredia MD [address] [place] [address] 12/12/2025 2:15 PM EDT Office Visit [facility] [address] [place] [phone] Cheko Heredia MD [address] [place] [address] Scheduled Procedures Name Priority Associated Diagnoses Date/Ti me ABLATION A-FIB Atrial fibrillation with RVR Cardiomyopathy, dilated, nonischemic Essential hypertension documented as of this encounter Visit Diagnoses Not on filedocumented in this encounter Care Teams 3Rd Pressman Relationship Specialty Start Date End Date Cheko Heredia MD [address] [place] [address] PCP - General Family Medicine 01/10/22 documented as of this encounter
--- OUTSIDE RECORDS SUMMARY | 2025-09-14 13:01 | XMS_ITS | Referral Summary ---
Author Organization [employer] ([place], [place], [place], [place], [place]) Address [address] [place] [address] Care Team Providers Care Sharepoint Manager Name Role Phone Unavailable Primary Care [...]
--- OUTSIDE RECORDS SUMMARY | 2025-09-14 13:01 | XMS_ITS | Clinical Summary ---
Author Organization [facility] Address [address] [place] [address] Care Team Providers Care Tactical Response Group Officer Name Role Phone Kojo Vu Primary Care Provider [phone] Skinny Massey MD Unavailable [phone] Allergies Active Allergy Reactions Criticality Noted [...] (04/19/2019): Added automatically from request for surgery [id number] Social History Tobacco Use Types Packs/Day Years [...] Depression Screening 09/15/2024 COVID-19 Vaccine (1 - 2024-26 season) 2025 Influenza Vaccination (#1) 2025 Insurance MEDICARE ANTHEM MEDICARE PART A [facility] [address] [place] [id number] ANTHEM MEDICARE ANTHEM Care Teams Tactical Response Group Officer Relationship Specialty Start Date End Date Kojo Vu [address] [place] [address] PCP - General 09/18/18 Skinny Massey MD [address] [place] [address] [id number] Urology 09/22/22
--- OUTSIDE RECORDS SUMMARY | 2025-09-14 13:01 | XMS_ITS | Continuity of Care Document ---
Author Organization [facility] Address [address] [place] [address] Care Team Providers Care Bridge Ironworker Name Role Phone RANDA ALEX Referring Provider [phone] Assessment No assessment recorded. Plan of Treatment Reminders Order Date Submit Date Provider Last Modified By Organization Details Last Modified Time Details Appointments DERM ESTABLISH ED 2025 12:50P M SATYA MCALLISTER PA-C Not available Not available Not available Lab surgical pathology study 2024 025 [facility], [address] [place] [address], [phone], 08/08/2025 12:27:02 Referral None recorded. Procedures None recorded. Surgeries None recorded. Imaging None recorded. Medication Orders None recorded. Patient TargetsNo targets recorded. Patient InstructionsNo instructions recorded. Reason for Referral None Reported. 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 AJCC: T1, Nx, Mx SOURC E OF SPECI MEN: SKIN, R DORSA L HAND CLINI KARLI INFOR MATIO N: R/O: SCC. ED&C DONE. Gross Descr iptio n: The speci men consi sted of a singl e marcano tissu e fragm ent which measu red 12 x 9 x 6 mm. Speci men is seria lly secti oned (x4). All is submi tted in one casse tte. Micro scopi c Descr iptio n: The strat um corne um is marke dly hyper kerat otic formi ng a tall cutan eous horn. The under lying epide rmis displ ays kerat inocy te atypi a and disor ganiz ation . Atypi karli kerat inocy nayely invad e the dermi s. NLOA LLAMAS MD Deborah d Out Date: 08/08 12:26 1 Not Available [facility] [address] [place] [address], [phone], 08/08/2025 12:27:02 Result Notes None recorded. 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 Procedures Surgical History Date Name Laterality Status Provider Name and Address Organization Details Recorded Time 08/04/20 25 DAK - Cryo AK [facility]/04/2025 14:11:15 08/04/20 25 Blade Biopsy w/ ED&C completed [facility] 08/04/2025 14:11:12 03/15/20 19 Post Void Residual; Ultrasound completed [facility] 03/15/2019 14:11:08 03/03/20 19 Post Void Residual; Ultrasound completed [facility] 03/03/2019 13:38:19 02/20/20 19 Post Void Residual; Ultrasound completed Dory Townsend [facility] 02/19/2019 15:23:08 02/10/20 19 CONTACT LASER VAPORIZATION, WITH TRANSURETHRAL RESECTION OF PROSTATE (SURG) completed Mery Blankulkner [facility] 02/10/2019 08:55:15 08/05/20 18 Lumbar Radiofrequency [place] [address] [place] [address], [phone], [facility] 08/05/2018 12:28:23 07/29/20 18 Lumbar Radiofrequency Ablation completed ENRIQUE FRENCH MD [address] [place] [address], [phone], [facility] 07/29/2018 13:17:00 07/01/20 18 Lumbar Medial Branch Blocks completed ENRIQUE FRENCH MD [address] [place] [address], [phone], [facility] 07/01/2018 14:24:01 08/14/20 11 Back Surgery completed [facility] 01/07/2017 14:39:50 Other completed [facility] 01/07/2017 14:38:38 Knee arthroscopy/surger y completed [facility] 01/07/2017 14:38:50 Other completed [facility] 01/07/2017 14:40:05 Imaging Results None recorded. Procedure Notes None recorded. Medical Equipment None Reported. Allergies Allergen ID Allergen Name Allergen Category Reaction Reaction Severity Criticality Documentation Date Start Date Code Code System Note Provider Name and Address Organization Details Recorded Time 298193 Substance with sulfonami de structure and antibacte rial mechanism of action (substanc e) medicatio n Not available Not available Not available 12/21/2018 67294 8003 SN[facility]ED [facility] 14:40:22 Medications Name Sig Start Date [...] Available Not Available No t Available Vitals None Recorded Social History Question Answer Notes LastModified by Organizat ion Details LastModified Time Tobacco Smoking Status Current Every Day Smoker Lisseth Shaw [facility] 01/07/2017 14:38:28 How Much Tobacco Do You Chew? None Information not available 12/21/2018 Marital Status Informatio n not available 12/21/2018 What Was The Date Of Your Most Recent Tobacco Screening? 08/04/2025 [email or web address] Information not available 08/04/2025 What Is Your Relationship Status? Information not [...] Diagnosis SNOMED-CT Code Diagnosis ICD10 Code Diagnosis IMO Codes Diagnosis Note [id number] MIGUEL POWERS [address] [phone] 08/04/2025 13:27:47 08/04/2025 14:46:17 Melanocytic nevus of trunk 216500575 D22.5 L81.4 D18.01 L82.1 2116753 The benign nature of keratoses and lentigines was discussed with the patient. Sun protection with SPF 30 broad spectrum sunscreen and protective gear discussed. Look for physical honey sunscreens with at least SPF 30 containing zinc oxide or titanium dioxide as active ingredient . Recommend monthly self examinatio ns and yearly full skin examinatio n with a dermatolog y provider. Recommend yearly eye exam. Recommend OTC Vitamin D supplement . Patient instructed to call if any suspicious lesions are noted. History of malignant neoplasm of skin 851500453 Z85.828 L90.5 03008 Scar(s) clear with no evidence recurrence . Continue to monitor for any changes. Neoplasm o f uncertain behavior of skin 40353194 D48.5 The etiology of lesion(s) discussed. Biopsy recommende d.ED&C performed today.Will call pt with results or post to portal if benign. Actinic keratosis 007 L57.0 078309 The nature of the diagnosis was explained. Pre-cancer ous.Will treat with LN2.F/u if treated lesions persist. Health Concerns Section Related Observation LastModified by Organization Detai ls LastModified Time None Recorded Concern Status LastModified by Organization Details LastModified Time None Recorded Payers Encounter Date Sequence Insurance Name Policy Number Policy Givens Covered Member ID Givens Member ID Guarantor Name 08/04/2025 1 [place] Mino Hsu [id number] Mino Hsu 08/04/2025 2 [place] [id number] Mino Hsu [id number] Mino Hsu Notes Date Note Type Note Provider Name and Address Organization Details Recorded Time 08/04/2025 text/html ROS as noted in the HPI waist uplast seen:x BCC- R forearmspot of concern: MIGUEL Cruz [address] [place], [phone], [facility] 08/07/2025 14:53:10
--- OUTSIDE RECORDS SUMMARY | 2025-09-14 13:01 | XMS_ITS | Data Portability ---
Author Organization [facility] ALAYNA Dennison [place] Address [address] [place] [address] Care Team Providers Care Patient Registration Manager Name Role Phone ALEX TOLENTINO Referring Provider [phone] Assessment No assessment recorded. Plan of Treatment Reminders Order Date Submit Date Provider Last Modified By Organization Details Last Modified Time Details Appointments DERM ESTABLISH ED 2025 12:50P M SATYA MCALLISTER PA-C Not available Not available Not available Lab surgical pathology study 2024 025 [facility], [address] [place] [address], [address], 08/08/2025 12:27:02 urinalysi s panel, auto [address] [facility], [address] [place] [address], [address], [place], [address], 01/14/2022 14:48:50 urinalysi s, dipstick, auto 2018 019 [email or web address] [facility], [address] [place] [address], [address], [place], [address], 04/02/2019 16:58:01 culture, urine 2018 019 [facility], [address] [place] [address], [address], 04/03/2019 10:33:25 Referral None recorded. Procedures None recorded. Surgeries None recorded. Imaging None recorded. Medication Orders None recorded. Patient TargetsNo targets recorded. Patient Instructions Encounter Date Encounter Id Patient Instructions Last Modified By Organization Details Last Modified Time 04/02/2019 [id number] Male Urinary Tract Infection (UTI): Care Instructions [email or web address] Not available 04/02/2019 15:12:19 06/08/2019 [id number] Spent 25 total minutes with the patient today. Greater than 50% of this time was spent counseling/coordi nation of care as documented in my assessment and plan above. [email or web address] Not available 06/08/2019 14:20:26 Reason for Referral None Reported. Results Created Date Observation Date Name Description Value Unit Range Abnormal Flag Note LastModifiedBy Organization Detail LastModifiedTime 04/02/2004/02/2019 urina lysis , dipst ick, auto Unknown Analyte Yellow Not Available [facility] [address], [address], 04/02/2019 13:51:50 04/02/2004/02/2019 urina lysis , dipst ick, auto Unknown Analyte Clear Not Available [facility] [address], [address], 04/02/2019 13:51:50 04/02/2004/02/2019 urina lysis , dipst ick, auto Unknown Analyte 1.010 Not Available [facility] [address], [address], 04/02/2019 13:51:50 04/02/2004/02/2019 urina lysis , dipst ick, auto Unknown Analyte 1.003 - 1.035 Not Available [facility] [address], [address], 04/02/2019 13:51:50 04/02/2004/02/2019 urina lysis , dipst ick, auto Unknown Analyte 6.5 Not Available [facility] [address], [place], [address], 04/02/2019 13:51:50 04/02/2004/02/2019 urina lysis , dipst ick, auto Unknown Analyte 5.0 - 8.0 Not Available [facility] [address], [place], [address], 04/02/2019 13:51:50 04/02/2004/02/2019 urina lysis , dipst ick, auto Unknown Analyte Negati ve Not Available [facility] [address], [place], [address], 04/02/2019 13:51:50 04/02/2004/02/2019 urina lysis , dipst ick, auto Unknown Analyte Negati ve Not Available [facility] [address], [place], [address], 04/02/2019 13:51:50 04/02/2004/02/2019 urina lysis , dipst ick, auto Unknown Analyte Negati ve Not Available [facility] [address], [place], [address], 04/02/2019 13:51:50 04/02/2004/02/2019 urina lysis , dipst ick, auto Unknown Analyte Negati ve Not Available [facility] [address], [place], [address], 04/02/2019 13:51:50 04/02/2004/02/2019 urina lysis , dipst ick, auto Unknown Analyte Negtiv e Not Available [facility] [address], [place], [address], 04/02/2019 13:51:50 04/02/2004/02/2019 urina lysis , dipst ick, auto Unknown Analyte Negati ve - Trace Not Available [facility] [address], [place], [address], 04/02/2019 13:51:50 04/02/2004/02/2019 urina lysis , dipst ick, auto Unknown Analyte Normal Not Available [facility] [address], [place], [address], 04/02/2019 13:51:50 04/02/2004/02/2019 urina lysis , dipst ick, auto Unknown Analyte Normal Not Available [facility] [address] [place] [address] Rd [address], [place], [address], 04/02/2019 13:51:50 04/02/2004/02/2019 urina lysis , dipst ick, auto Unknown Analyte Negati ve Not Available [facility] [address] [place] [address] Rd [address], [address], 04/02/2019 13:51:50 04/02/2004/02/2019 urina lysis , dipst ick, auto Unknown Analyte Negati ve Not Available [facility] [address] [place] [address] Rd [address], [place], [address], 04/02/2019 13:51:50 04/02/20 19 04/02/2019 urina lysis , dipst ick, auto Unknown Analyte Normal Not Available [facility] [address], [place], [address], 04/02/2019 13:51:50 04/02/2004/02/2019 urina lysis , dipst ick, auto Unknown Analyte Normal - 1mg/dl Not Available [facility] [address], [place], [address], 04/02/2019 13:51:50 04/02/20 19 04/02/2019 urina lysis , dipst ick, auto Unknown Analyte Negati ve Not Available [facility] [address], [place], [address], 04/02/2019 13:51:50 04/02/2004/02/2019 urina lysis , dipst ick, auto Unknown Analyte Negati ve Not Available [facility] [address], [address], 04/02/2019 13:51:50 04/02/20 19 04/02/2019 urina lysis , dipst ick, auto Unknown Analyte Negati ve Not Available [facility] [address], [address], 04/02/2019 13:51:50 04/02/2004/02/2019 urina lysis , dipst ick, auto Unknown Analyte Negati ve Not Available [facility] [address], [place], [address], 04/02/2019 13:51:50 04/02/2004/02/2019 urina lysis , dipst ick, auto Unknown Analyte Clean Catch Not Available [facility] [address], [place], [address], 04/02/2019 13:51:50 04/02/2004/02/2019 urina lysis , dipst ick, auto Unknown Analyte Automa minesh Not Available [facility] [address], [address], 04/02/2019 13:51:50 03/29/2003/29/2019 urina lysis , dipst ick, auto Unknown Analyte Stacy Not Available [facility] [address], [place], [address], 03/29/2019 12:28:20 03/29/2003/29/2019 urina lysis , dipst ick, auto Unknown Analyte Clear Not Available [facility] [address], [place], [address], 03/29/2019 12:28:20 03/29/2003/29/2019 urina lysis , dipst ick, auto Unknown Analyte 1.020 Not Available [facility] [address], [place], [address], 03/29/2019 12:28:20 03/29/2003/29/2019 urina lysis , dipst ick, auto Unknown Analyte 1.003 - 1.035 Not Available [facility] [address], [place], [address], 03/29/2019 12:28:20 03/29/20 19 03/29/2019 urina lysis , dipst ick, auto Unknown Analyte 5.0 Not Available [facility] [address], [place], [address], 03/29/2019 12:28:20 03/29/2003/29/2019 urina lysis , dipst ick, auto Unknown Analyte 5.0 - 8.0 Not Available [facility] [address], [address], 03/29/2019 12:28:20 03/29/2003/29/2019 urina lysis , dipst ick, auto Unknown Analyte 500 Сергей/ul (++) Not Available [facility] [address], [place], [address], 03/29/2019 12:28:20 03/29/2003/29/2019 urina lysis , dipst ick, auto Unknown Analyte Negati ve Not Available [facility] [address], [address], 03/29/2019 12:28:20 03/29/2003/29/2019 urina lysis , dipst ick, auto Unknown Analyte Positi ve Not Available [facility] [address], [address], 03/29/2019 12:28:20 03/29/2003/29/2019 urina lysis , dipst ick, auto Unknown Analyte Negati ve Not Available [facility] [address], [place], [address], 03/29/2019 12:28:20 03/29/20 19 03/29/2019 urina lysis , dipst ick, auto Unknown Analyte 500 mg/dl (+++) Not Available [facility] [address], [place], [address], 03/29/2019 12:28:20 03/29/2003/29/2019 urina lysis , dipst ick, auto Unknown Analyte Negati ve - Trace Not Available [facility] [address], [place], [address], 03/29/2019 12:28:20 03/29/20 19 03/29/2019 urina lysis , dipst ick, auto Unknown Analyte Normal Not Available [facility] [address], [place], [address], 03/29/2019 12:28:20 03/29/2003/29/2019 urina lysis , dipst ick, auto Unknown Analyte Normal Not Available [facility] [address], [place], [address], 03/29/2019 12:28:20 03/29/2003/29/2019 urina lysis , dipst ick, auto Unknown Analyte Negati ve Not Available [facility] [address], [place], [address], 03/29/2019 12:28:20 03/29/2003/29/2019 urina lysis , dipst ick, auto Unknown Analyte Negati ve Not Available [facility] [address], [place], [address], 03/29/2019 12:28:20 03/29/2003/29/2019 urina lysis , dipst ick, auto Unknown Analyte >12 mg/dl Not Available [facility] [address], [place], [address], 03/29/2019 12:28:20 03/29/2003/29/2019 urina lysis , dipst ick, auto Unknown Analyte Normal - 1mg/dl Not Available [facility] [address], [place], [address], 03/29/2019 12:28:20 03/29/2003/29/2019 urina lysis , dipst ick, auto Unknown Analyte 6 mg/dl (+++) Not Available [facility] [address], [place], [address], 03/29/2019 12:28:20 03/29/2003/29/2019 urina lysis , dipst ick, auto Unknown Analyte Negati ve Not Available [facility] [address], [place], [address], 03/29/2019 12:28:20 03/29/2003/29/2019 urina lysis , dipst ick, auto Unknown Analyte 50 Kandice/ul Not Available [facility] [address], [place], [address], 03/29/2019 12:28:20 03/29/20 19 03/29/2019 urina lysis , dipst ick, auto Unknown Analyte Negati ve Not Available [facility] [address], [place], [address], 03/29/2019 12:28:20 03/29/20 19 03/29/2019 urina lysis , dipst ick, auto Unknown Analyte Clean Catch Not Available [facility] [address], [place], [address], 03/29/2019 12:28:20 03/29/20 19 03/29/2019 urina lysis , dipst ick, auto Unknown Analyte Automa minesh Not Available [facility] [address], [address], 03/29/2019 12:28:20 03/15/20 19 03/15/2019 urina lysis , dipst ick, auto Unknown Analyte Stacy Not Available [facility] [address] [place] [address], [address], 03/15/2019 14:05:30 03/15/20 19 03/15/2019 urina lysis , dipst ick, auto Unknown Analyte Clear Not Available [facility] [address], [address], 03/15/2019 14:05:30 03/15/20 19 03/15/2019 urina lysis , dipst ick, auto Unknown Analyte 1.015 Not Available [facility] [address], [address], 03/15/2019 14:05:30 03/15/20 19 03/15/2019 urina lysis , dipst ick, auto Unknown Analyte 1.003 - 1.035 Not Available [facility] [address], [place], [address], 03/15/2019 14:05:30 03/15/20 19 03/15/2019 urina lysis , dipst ick, auto Unknown Analyte 6.5 Not Available [facility] [address], [place], [address], 03/15/2019 14:05:30 03/15/2003/15/2019 urina lysis , dipst ick, auto Unknown Analyte 5.0 - 8.0 Not Available [facility] [address], [place], [address], 03/15/2019 14:05:30 03/15/2003/15/2019 urina lysis , dipst ick, auto Unknown Analyte 500 Сергей/ul (++) Not Available [facility] [address], [place], [address], 03/15/2019 14:05:30 03/15/2003/15/2019 urina lysis , dipst ick, auto Unknown Analyte Negati ve Not Available [facility] [address], [place], [address], 03/15/2019 14:05:30 03/15/2003/15/2019 urina lysis , dipst ick, auto Unknown Analyte Positi ve Not Available [facility] [address], [address], 03/15/2019 14:05:30 03/15/2003/15/2019 urina lysis , dipst ick, auto Unknown Analyte Negati ve Not Available [facility] [address], [place], [address], 03/15/2019 14:05:30 03/15/20 19 03/15/2019 urina lysis , dipst ick, auto Unknown Analyte 500 mg/dl (+++) Not Available [facility] [address], [place], [address], 03/15/2019 14:05:30 03/15/2003/15/2019 urina lysis , dipst ick, auto Unknown Analyte Negati ve - Trace Not Available [facility] [address], [place], [address], 03/15/2019 14:05:30 03/15/20 19 03/15/2019 urina lysis , dipst ick, auto Unknown Analyte Normal Not Available [facility] [address], [place], [address], 03/15/2019 14:05:30 03/15/2003/15/2019 urina lysis , dipst ick, auto Unknown Analyte Normal Not Available [facility] [address], [place], [address], 03/15/2019 14:05:30 03/15/2003/15/2019 urina lysis , dipst ick, auto Unknown Analyte Negati ve Not Available [facility] [address], [place], [address], 03/15/2019 14:05:30 03/15/20 19 03/15/2019 urina lysis , dipst ick, auto Unknown Analyte Negati ve Not Available [facility] [address], [place], [address], 03/15/2019 14:05:30 03/15/2003/15/2019 urina lysis , dipst ick, auto Unknown Analyte >12 mg/dl Not Available [facility] [address], [place], [address], 03/15/2019 14:05:30 03/15/2003/15/2019 urina lysis , dipst ick, auto Unknown Analyte Normal - 1mg/dl Not Available [facility] [address], [place], [address], 03/15/2019 14:05:30 03/15/2003/15/2019 urina lysis , dipst ick, auto Unknown Analyte 3 mg/dl (++) Not Available [facility] [address], [place], [address], 03/15/2019 14:05:30 03/15/2003/15/2019 urina lysis , dipst ick, auto Unknown Analyte Negati ve Not Available [facility] [address], [place], [address], 03/15/2019 14:05:30 03/15/2003/15/2019 urina lysis , dipst ick, auto Unknown Analyte 50 Kandice/ul Not Available [facility] [address], [place], [address], 03/15/2019 14:05:30 03/15/20 19 03/15/2019 urina lysis , dipst ick, auto Unknown Analyte Negati ve Not Available [facility] [address] [place] [address] Rd [address], [place], [address], 03/15/2019 14:05:30 03/15/20 19 03/15/2019 urina lysis , dipst ick, auto Unknown Analyte Clean Catch Not Available [facility] [address] [place] [address] [address], [place], [address], 03/15/2019 14:05:30 03/15/20 19 03/15/2019 urina lysis , dipst ick, auto Unknown Analyte Automa minesh Not Available [facility] [address], [place], [address], 03/15/2019 14:05:30 03/03/20 19 03/03/2019 urina lysis , dipst ick, auto Unknown Analyte Stacy Not Available [facility] [address], [place], [address], 03/03/2019 13:37:08 03/03/20 19 03/03/2019 urina lysis , dipst ick, auto Unknown Analyte Hazy Not Available [facility] [address] [place] [address] [address], [place], [address], 03/03/2019 13:37:08 03/03/2003/03/2019 urina lysis , dipst ick, auto Unknown Analyte 1.020 Not Available [facility] [address] [place] [address] [address], [place], [address], 03/03/2019 13:37:08 03/03/20 19 03/03/2019 urina lysis , dipst ick, auto Unknown Analyte 1.003 - 1.035 Not Available [facility] [address], [place], [address], 03/03/2019 13:37:08 03/03/20 19 03/03/2019 urina lysis , dipst ick, auto Unknown Analyte 5.0 Not Available [facility] [address], [address], 03/03/2019 13:37:08 03/03/20 19 03/03/2019 urina lysis , dipst ick, auto Unknown Analyte 5.0 - 8.0 Not Available [facility] [address], [place], [address], 03/03/2019 13:37:08 03/03/20 19 03/03/2019 urina lysis , dipst ick, auto Unknown Analyte Negati ve Not Available [facility] [address], [place], [address], 03/03/2019 13:37:08 03/03/2003/03/2019 urina lysis , dipst ick, auto Unknown Analyte Negati ve Not Available [facility] [address], [place], [address], 03/03/2019 13:37:08 03/03/2003/03/2019 urina lysis , dipst ick, auto Unknown Analyte Positi ve Not Available [facility] [address], [place], [address], 03/03/2019 13:37:08 03/03/20 19 03/03/2019 urina lysis , dipst ick, auto Unknown Analyte Negati ve Not Available [facility] [address] [place] [address] [address], [place], [address], 03/03/2019 13:37:08 03/03/20 19 03/03/2019 urina lysis , dipst ick, auto Unknown Analyte 500 mg/dl (+++) Not Available [facility] [address], [place], [address], 03/03/2019 13:37:08 03/03/20 19 03/03/2019 urina lysis , dipst ick, auto Unknown Analyte Negati ve - Trace Not Available [facility] [address], [place], [address], 03/03/2019 13:37:08 03/03/20 19 03/03/2019 urina lysis , dipst ick, auto Unknown Analyte Normal Not Available [facility] [address], [place], [address], 03/03/2019 13:37:08 03/03/20 19 03/03/2019 urina lysis , dipst ick, auto Unknown Analyte Normal Not Available [facility] [address] [place] [address] [address], [place], [address], 03/03/2019 13:37:08 03/03/20 19 03/03/2019 urina lysis , dipst ick, auto Unknown Analyte Negati ve Not Available [facility] [place] [address], [place], [address], 03/03/2019 13:37:08 03/03/20 19 03/03/2019 urina lysis , dipst ick, auto Unknown Analyte Negati ve Not Available [facility] [address], [place], [address], 03/03/2019 13:37:08 03/03/20 19 03/03/2019 urina lysis , dipst ick, auto Unknown Analyte 8 mg/dl Not Available [facility] [address], [place], [address], 03/03/2019 13:37:08 03/03/20 19 03/03/2019 urina lysis , dipst ick, auto Unknown Analyte Normal - 1mg/dl Not Available [facility] [address], [place], [address], 03/03/2019 13:37:08 03/03/20 19 03/03/2019 urina lysis , dipst ick, auto Unknown Analyte 3 mg/dl (++) Not Available [facility] [address], [place], [address], 03/03/2019 13:37:08 03/03/2003/03/2019 urina lysis , dipst ick, auto Unknown Analyte Negati ve Not Available [facility] [address] [place], [place] [address] [address], [place], [address], 03/03/2019 13:37:08 03/03/20 19 03/03/2019 urina lysis , dipst ick, auto Unknown Analyte 250 Kandice/ul Not Available [facility] [address] [place] [address] [address], [place], [address], 03/03/2019 13:37:08 03/03/20 19 03/03/2019 urina lysis , dipst ick, auto Unknown Analyte Negati ve Not Available [facility] [address] [place] [address] [address], [place], [address], 03/03/2019 13:37:08 03/03/20 19 03/03/2019 urina lysis , dipst ick, auto Unknown Analyte Clean Catch Not Available [facility] [address], [place], [address], 03/03/2019 13:37:08 03/03/20 19 03/03/2019 urina lysis , dipst ick, auto Unknown Analyte Automa minesh Not Available [facility] [address], [place], [address], 03/03/2019 13:37:08 03/15/20 19 03/15/2019 cultu re, urine results Sourc e: ALONSO Egan cted: 03/15 14:46 Site: Recei zaire : 03/15 20:15 URINE SCREE N(CUL TURE) FINAL 03/17 12:24 03/17 No growt h day 2. Not Available [facility] [address] [place], [address], 03/17/2019 12:24:32 03/29/20 19 03/29/2019 cultu re, urine results Sourc e: ALONSO Egan cted: 03/29 12:29 Site: Recei zaire : 03/29 14:10 URINE SCREE N(CUL TURE) FINAL 03/31 15:00 03/31 No growt h day 2. Not Available [facility] [address] [facility], [place], [address], 03/31/2019 15:00:56 04/02/20 19 04/02/2019 cultu re, urine results Sourc e: CCUR Colle cted: 04/02 13:52 Site: Recei zaire : 04/02 20:07 URINE SCREE N(CUL TURE) FINAL 04/05 10:45 04/03 COLON Y COUNT : > 100,0 00 CFU/M L Proba ble Gram Negat amy Bacil eri. ID and sensi tivit y in progr ess. 04/05 See [place] [facility] Resul t(s) Below ISOLA KELLIE AND SENSI TIVIT Y RESUL TS [place] [facility] 01 [place] [employer] __ [place] [facility] ORG# 01 ANTIB IOTIC S DARREL [...] im <=8 S Not Available [facility] [address] [place], [address], 04/05/2019 10:46:01 06/08/20 19 06/08/2019 creat inine , serum or plasm a creatinine 1.06 mg/dL 0.70-1 .25 normal Not Available [facility] [address] [place], [address], 06/08/2019 12:45:16 01/15/20 22 01/14/2022 urina lysis panel , auto Unknown Analyte Clean Catch Not Available [facility] [address] [place] [address], [address], 01/14/2022 14:35:10 01/15/20 22 01/14/2022 urina lysis panel , auto Unknown Analyte Yellow Not Available [facility] [address] [place] [address], [address], 01/14/2022 14:35:10 01/15/20 22 01/14/2022 urina lysis panel , auto Unknown Analyte Clear Not Available [facility] [address], [place], [address], 01/14/2022 14:35:10 01/15/20 22 01/14/2022 urina lysis panel , auto Unknown Analyte 1.020 Not Available [facility] [address], [place], [address], 01/14/2022 14:35:10 01/15/20 22 01/14/2022 urina lysis panel , auto Unknown Analyte 1.003- 1.035 Not Available [facility] [address], [place], [address], 01/14/2022 14:35:10 01/15/20 22 01/14/2022 urina lysis panel , auto Unknown Analyte 5.0 Not Available [facility] [address] [place] [address] Rd [address], [place], [address], 01/14/2022 14:35:10 01/15/20 22 01/14/2022 urina lysis panel , auto Unknown Analyte 5.0-8. 0 Not Available [facility] [address], [place], [address], 01/14/2022 14:35:10 01/15/20 22 01/14/2022 urina lysis panel , auto Unknown Analyte Negati ve Not Available [facility] [address], [place], [address], 01/14/2022 14:35:10 01/15/20 22 01/14/2022 urina lysis panel , auto Unknown Analyte Negati ve Not Available [facility] [address], [place], [address], 01/14/2022 14:35:10 01/15/20 22 01/14/2022 urina lysis panel , auto Unknown Analyte Negati ve Not Available [facility] [address] [place] [address] [address], [place], [address], 01/14/2022 14:35:10 01/15/20 22 01/14/2022 urina lysis panel , auto Unknown Analyte Negati ve Not Available [facility] [address] [place] [address] Rd [address], [place], [address], 01/14/2022 14:35:10 01/15/20 22 01/14/2022 urina lysis panel , auto Unknown Analyte Negati ve Not Available [facility] [address] [place] [address] Rd [address], [place], [address], 01/14/2022 14:35:10 01/15/20 22 01/14/2022 urina lysis panel , auto Unknown Analyte Negati ve Not Available [facility] [address] [place] [address] Rd [address], [place], [address], 01/14/2022 14:35:10 01/15/20 22 01/14/2022 urina lysis panel , auto Unknown Analyte Normal Not Available [facility] [address] [place] [address] Rd [address], [place], [address], 01/14/2022 14:35:10 01/15/20 22 01/14/2022 urina lysis panel , auto Unknown Analyte Normal Not Available [facility] [address], [place], [address], 01/14/2022 14:35:10 01/15/20 22 01/14/2022 urina lysis panel , auto Unknown Analyte Negati ve Not Available [facility] [address] [place] [address] Rd [address], [place], [address], 01/14/2022 14:35:10 01/15/20 22 01/14/2022 urina lysis panel , auto Unknown Analyte Negati ve Not Available [facility] [address], [place], [address], 01/14/2022 14:35:10 01/15/20 22 01/14/2022 urina lysis panel , auto Unknown Analyte Normal Not Available [facility] [address] [place] [address] Rd [address], [place], [address], 01/14/2022 14:35:10 01/15/20 22 01/14/2022 urina lysis panel , auto Unknown Analyte Normal 1 mg/dl Not Available [facility] [address], [place], [address], 01/14/2022 14:35:10 01/15/20 22 01/14/2022 urina lysis panel , auto Unknown Analyte Negati ve Not Available [facility] [address] [place] [address] Rd [address], [place], [address], 01/14/2022 14:35:10 01/15/20 22 01/14/2022 urina lysis panel , auto Unknown Analyte Negati ve Not Available [facility] [address] [place] [address] Rd [address], [place], [address], 01/14/2022 14:35:10 01/15/20 22 01/14/2022 urina lysis panel , auto Unknown Analyte Negati ve Not Available [facility] [address] [place] [address] Rd [address], [place], [address], 01/14/2022 14:35:10 01/15/20 22 01/14/2022 urina lysis panel , auto Unknown Analyte Negati ve Not Available [facility] [address] [facility] [address], [place], [address], 01/14/2022 14:35:10 08/04/20 25 08/04/2025 SURGI KARLI surgical SEE BELOW abnormal [place] topat holog y Repor t NAME: HERB CARIAS PATH: [id number] PROCE DURE DATE: 08/04 SIGNO UT [...] ganiz ation . 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 NOLA LLAMAS MD Deborah d Out Date: 08/08 12:26 1 Not Available [facility] [place], [address], 08/08/2025 12:27:02 06/08/20 19 06/08/2019 MRI, lumba r spine , w/wo contr ast Formerly [facility] [place] [address] Patien t Name: MINO Grijalva BRIAN Link t : 947 Paticiro t 8 Orderi ng Provid er: ROBYN KINCAID PS EXAM DATE: 2018 EXAM: MR LUMBAR SPINE [...] ing 9 mm. 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 [...] strati on of [address] (NDC [address]85[address]- 325-02 ), there is no abnorm al [...] Paulette barros MD on 019 1:39 PM [id number] [facility] [address], [address], 06/08/2019 14:46:00 09/01/20 19 09/01/2019 XR, lumbo sacra l spine , 2 or 3 view, bendi ng only [address] [address] Nikolay holt Name: MINO holt : 947 [...] Xiao Costa MD on 2018 1:15 PM [id number] [facility] [address], [address], 09/21/2019 10:50:56 Result Notes Documentation Provider Name and Address Organization Details Recorded Time Mri, Lumbar Spine, W/wo Contrast : [address] [address] Patient Name: MINO HSU Patient : 1945 [...] After intravenous administration of 10 cc Gadavist ([facility] [address]86-935-59), there is no abnormal enhancement in the [...] Interpreted By: Bairon Drew MD CARPENTER MD [address] [place] [address], [phone] 06/08/2019 14:46:00 Xr, Lumbosacral Spine, 2 Or 3 View, Bending Only : [address] [address] Patient Name: MINO HSU Patient : 1945 [...] Interpreted By: Samm Costa MD CARPENTER MD [address] [place] [address], [address], [facility] 09/21/2019 10:50:56 Problems Name Problem SNOMED Code Status Onset Date Resolution Date Notes Provider Name and Address Organization Details Recorded Time 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 Procedures Surgical History Date Name Laterality Status Provider Name and Address Organization Details Recorded Time 08/04/20 25 DAK - Cryo AK completed [facility] Joe JerniganBhargav [facility] 08/04/2025 14:11:15 08/04/20 25 Blade Biopsy w/ ED&C completed [facility] Joe JerniganBhargav [facility] 08/04/2025 14:11:12 03/15/20 19 Post Void Residual; Ultrasound completed [facility] 03/15/2019 14:11:08 03/03/20 19 Post Void Residual; Ultrasound completed [facility] 03/03/2019 13:38:19 02/20/20 19 Post Void Residual; Ultrasound completed Dory Townsend [facility] 02/19/2019 15:23:08 02/10/20 19 CONTACT LASER VAPORIZATION, WITH TRANSURETHRAL RESECTION OF PROSTATE (SURG) completed Mery Cohen [facility] 02/10/2019 08:55:15 08/05/20 18 Lumbar Radiofrequency Ablation completed ENRIQUE FRENCH MD [address] [place] [address], [address], [facility] 08/05/2018 12:28:23 07/29/20 18 Lumbar Radiofrequency Ablation completed ENRIQUE FRENCH MD [address] [place] [address], [address], [facility] 07/29/2018 13:17:00 07/01/20 18 Lumbar Medial Branch Blocks completed ENRIQUE FRENCH MD [address] [place] [address], [address], [facility] 07/01/2018 14:24:01 08/14/20 11 Back Surgery completed [facility] 01/07/2017 14:39:50 Other completed [facility] 01/07/2017 14:38:38 Knee arthroscopy/surger y completed [facility] 01/07/2017 14:38:50 Other completed [facility] 01/07/2017 14:40:05 Imaging Results None recorded. Procedure Notes None recorded. Medical Equipment None Reported. Allergies Allergen ID Allergen Name Allergen Category Reaction Reaction Severity Criticality Documentation Date Start Date Code Code System Note Provider Name and Address Organization Details Recorded Time 343768 Substance with sulfonami de structure and antibacte rial mechanism of action (substanc e) medicatio n Not available Not available Not available 12/21/2018 92000 8003 SNOMED Toshia Lock [facility] 9 14:40:22 Medications [...] Updated DateTime 01/14/2022 180.34 cm 29.3 kg/m2 87097.4 g Toshia Ashvin [facility] 01/14/2022 14:28:00 Date Recorded Body height Provider Name an d Address Organization Details Last Updated DateTime 04/02/2019 182.88 cm Butch Lint [facility] 04/02/2019 13:51:45 Date Recorded Body height Body mass index (BMI) Body weight Systolic And Diastolic Provider Name and Address Organization Details Last Updated DateTime 06/08/2019 182.88 cm 27.1 kg/m2 66951.47 g 100/70 mm[Hg] Lisseth Shaw [facility] 06/08/2019 13:53:24 Date Recorded Body height Body mass index (BMI) Body weight Systolic And Diastolic Provider Name and Address Organization Details Last Updated DateTime 09/01/2019 182.88 cm 27.1 kg/m2 79426.47 g 100/78 mm[Hg] Lisseth Shaw [facility] 09/01/2019 14:06:13 Social History Question Answer Notes LastModified by Organizat ion Details LastModified Time Tobacco Smoking Status Current Every Day Smoker Lisseth Shaw [facility] 01/07/2017 14:38:28 How Much Tobacco Do You Chew? None Information not available 12/21/2018 Marital Status Informatio n not available 12/21/2018 What Was The Date Of Your Most Recent Tobacco Screening? 08/04/2025 [email or web address] Information not available 08/04/2025 What Is Your Relationship Status? [email or web address] Information not available 01/14/2022 How Much Tobacco [...] ICD10 Code Diagnosis IMO Codes Diagnosis Note [id number] SAV CARPENTER MD [facility] [address] [place] [address] 01/07/2017 13:52:17 01/09/2017 10:37:38 Spondylolisthesis 813731670 M43.10 Lumbosacra l radiculopathy 1829125 M54.16 [id number] BHARGAV GORDON PA-C [facility] [address] [place] [address] 03/30/2018 13:03:48 03/31/2018 10:53:27 Lumbar spondylolisthesis 1687342670 11339 M43.16 Mr. Hsu is s/p a prior [...] meantime. He is happy with this plan. [id number] EVAN PRADO PA-C [facility] [address] [place] [address] 05/04/2018 13:12:54 05/07/2018 15:06:01 Spondylolisthesis 993915893 M43.10 Lumbar MRI L4-5 spondyloli sthesis with [...] evaluation . Pt agrees with this plan. [id number] ENRIQUE FRENCH MD [facility] CL[facility] [address] [place] [address] 1 06/19/2018 13:24:59 06/29/2018 14:06:48 Long-term drug therapy 219163155 Z79.899 Lumbar spondylosis 07879 0009 M47.115 [id number] ENRIQUE FRENCH MD [facility] [address] [place] [address] 1 07/01/2018 14:00:57 07/03/2018 14:46:43 Lumbar spondylosis 092894789 M47.156 [id number] ENRIQUE FRENCH MD [facility] CLOSED [address] [place] [address] 1 07/13/2018 13:08:25 07/13/2018 13:36:34 Lumbar spondylosis 343357366 M47.816 Long-term drug therapy 618043345 Z79.719 [id number] ENRIQUE FRENCH MD [facility] [address] [place] [address] 1 07/29/2018 12:07:47 07/31/2018 14:52:20 Lumbar spondylosis 357851665 M47.839 [id number] ENRIQUE FRENCH MD [facility] [address] [place] [address] 1 08/05/2018 11:29:13 08/12/2018 07:19:53 Lumbar spondylosis 975981709 M47.275 [id number] ENRIQUE FRENCH MD [facility]IN MEDICINE CLOSED [address] [place] [address] 1 09/17/2018 10:20:49 09/17/2018 11:59:31 Lumbar spondylosis 708805590 M47.608 [id number] ENRIQUE FRENCH MD [facility]IN MEDICINE CLOSED [address] [place] [address] 1 11/23/2018 13:12:48 11/23/2018 13:51:18 Myofascial pain 481558863 M79.10 [id number] BAIRON ODOM MD [facility] [address] [place] [address] 12/21/2018 13:53:15 12/21/2018 14:52:29 Benign prostatic hyperplasia with outflow obstruction 052573161 N40.1 we will try alfuzosin. He apparently was treated with Bactrim for possible prostatiti s and took 2 doses this, considerab le somatic side effects. He will follow-up in one month and [place]. Increased frequency of urination 693390098 R35.0 [id number] BAIRON ODOM MD [facility] [address] [place] [address] 01/04/2019 13:10:11 01/04/2019 14:05:31 Benign prostatic hyperplasia with outflow obstruction 382769854 N40.1 as he is not improve we will arrange for flexible local cystoscopy [id number] BAIRON ODOM MD SURGERY SCHEDULE [address] [place] [address] 01/13/2019 07:27:05 01/13/2019 07:28:46 [id number] BAIRON ODOM MD [facility] [address] [facility] [address] [place] [address] 02/19/2019 14:43:44 02/19/2019 15:29:45 Urinary tract infectious disease 70174077 N39.0 Benign pro static hyperplasia with outflow obstruction 284308693 N40.1 status post greenlight laser vaporizati on of prostate. We will observe him for now. He will follow-up in one month. [id number] BAIRON ODOM MD [facility] [address] [place] [address] 03/03/2019 12:30:23 03/03/2019 14:14:31 Increased frequency of urination 850408807 R35.0 Benign pro static hyperplasia with outflow obstruction 848061932 N40.1 status post greenlight laser vaporizati on of prostate. We will observe him for now. He will follow-up in one month. [id number] MIGUELINA DOMINIQUE PA-C [facility] [address] [place] [address] 03/09/2019 14:02:25 03/11/2019 14:15:00 Lumbar spondylolisthesis 7415850553 77125 M43.16 Mr. Hsu presents to clinic at [...] agrees with the plan as stated above. [id number] MD [facility] [address] [place] [address] 03/15/2019 13:27:52 03/15/2019 14:41:09 Benign prostatic hyperplasia with outflow obstruction 070782993 N40.1 status post greenlight laser vaporizati on of prostate. We will observe him for now. He will follow-up in 3 weeks Increased frequency of urination 950715420 R35.0 he was given instructio ns in written to hold oxybutynin once he starts Myrbetriq [id number] MD [facility] [address] [place] [address] 03/29/2019 12:11:13 03/29/2019 13:27:34 Urinary tract infectious disease 66723444 N39.0 Increased frequency of urination 066965776 R35.0 plan as above Benign pro static hyperplasia with outflow obstruction 000221059 N40.1 status post greenlight laser vaporizati on of prostate. [id number] BAIRON ODOM MD [facility] [address] [place] [address] 04/02/2019 13:45:22 04/02/2019 13:47:22 Urinary tract infectious disease 28694600 N39.0 [id number] SAV CARPENTER MD [facility] [address] [place] [address] 06/08/2019 13:38:06 06/10/2019 09:06:31 Lumbar spondylolisthesis 4001331677 17244 M43.16 -The patient returns today for routine [...] stenosis bilaterall y. MRI was performed at [facility]. He would potentiall y benefit from a L4-5 fusion. We will see him back with routine assessment into the 3 months. We feel strongly that the prostate issue should be resolved prior to considerin g any interventi on with the low back. There are no significan t issues with the low back that should be contributi ng to incontinen ce. [id number] SAV CARPENTER MD [facility] [address] [place] [address] 09/01/2019 13:07:42 09/02/2019 15:23:03 Lumbar spondylolisthesis 3641788862 38992 M43.16 -Patient returns today for routine evaluation [...] seen and evaluated attending physician, Dr. Carpenter. [id number] BAIRON ODOM MD [facility] [address] [place] [address] 01/14/2022 14:05:54 01/14/2022 14:45:32 Neurogenic urinary bladder 062719869 N31.9 Stable Primary er ectile dysfunction 584403330 N52.9 we discussed that his reservoir may have high pressure due to encapsulat ion and that if indicated this could be reposition ed and perhaps replaced. At this point he will observed. [id number] MIGUEL POWERS [facility] [address] [place] [address] 08/04/2025 13:27:47 08/04/2025 14:46:17 Melanocytic nevus of trunk 217272858 D22.5 L81.4 D18.01 L82.1 1920540 The benign nature of keratoses and lentigines [...] noted. History of malignant neoplasm of skin 185566325 Z85.828 L90.5 09230 Scar(s) clear with no evidence recurrence . Continue to monitor for any changes. Neoplasm o f uncertain behavior of skin 61209764 D48.5 The etiology of lesion(s) discussed. Biopsy recommende d.ED&C performed today.Will call pt with results or post to portal if benign. Actinic keratosis L57.0 300681 The nature of the diagnosis was explained. [...] ID Givens Member ID Guarantor Name 08/04/2025 2 [place] [id number] Mino Hsu [id number] Mino Hsu 08/04/2025 2 [place] [id number] Mino Hsu [id number] 55 Mino Hsu 08/04/2025 1 [place] Mino Hsu [id number] Mino Hsu 08/09/2025 2 [place] [id number] Mino Hsu [id number] Mino Hsu Notes Date Note Type Note Provider Name and Address Organization Details Recorded Time 06/08/2019 text/html ROS as noted in the HPI The patient returns today for routine follow-up. Updated MRI of the lumbar spine was performed prior to his visit. History of a L2-5 lumbar laminectomy. 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 He is pain across his back that will radiate into his legs. Intermittently affects the left or the right. States that legs are affected Approximately equal. His major concern continues to be incontinence related to his prostate. He has an appointment with Dr. Massey for further consultation and treatment SAV CARPENTER MD [address] [place] [address], [address], [facility] 06/08/2019 14:20:55 09/01/2019 text/html ROS as noted [...] lower extremity since we last saw him. BHARGAV GORDON PA-C [address] [place], [address], [facility] 09/01/2019 14:28:29 01/14/2022 text/html patient is you last seen by me in 2018 following greenlight laser exercises prostate. He has a long history of chronic back pathology unfortunately still had significant urinary frequency and urgency. He was tried on numerous anticholinergics. He also prior to that had a inflatable penile prosthesis placed by Dr. Delgado. In the interim he was evaluated in [place] [facility] for his frequency and urgency and had what sounds to be a urodynamic study which he was told that his bladder with small placed on tamsulosin. His symptoms seem to improve he currently is receiving injection therapy to his back. His main complaint today is that his penile prosthesis spontaneously inflates with physical activity. BAIRON ODOM MD [address] [place], [address], [facility] 01/14/2022 14:49:26 08/04/2025 text/html ROS as noted in the HPI waist uplast seen:[id number] BCC- R forearmspot of concern: MIGUEL Cruz [address] [place], [address], [facility] 08/07/2025 14:53:10
--- OUTSIDE RECORDS SUMMARY | 2025-09-14 13:01 | XMS_ITS | Encounter Summary ---
[facility] Address [address] [place] [id number] Care Team Providers Care Transit Clerk Name Role Phone Cheko Heredia MD Primary Care Provider + Encounter Details Date Type Department Care Team (Latest Contact Info) Description 08/16/2025 Travel Social History Tobacco Use Types Packs/Day [...] Industry Job Start Date Job End Date [employer] Not on file Not on file Not on file documented as of this encounter Plan of Treatment Upcoming Encounters Date Type Department Care Team (Late st Contact Info) Description 09/19/2025 3:00 PM EST Office Visit [facility] [address] [address] Cheko Heredia MD [address] [address] 12/12/2025 2:15 PM EDT Office Visit [facility] [address] [place] [phone] Cheko Heredia MD [address] [place] [address] Scheduled Procedures Name Priority Associated Diagnoses Date/Ti me ABLATION A-FIB Atrial fibrillation with RVR Cardiomyopathy, dilated, nonischemic Essential hypertension documented as of this encounter Visit Diagnoses Not on filedocumented in this encounter Care Teams Transit Clerk Relationship Specialty Start Date End Date Cheko Heredia MD [address] [place] [address] PCP - General Family Medicine 01/10/22 documented as of this encounter
--- OUTSIDE RECORDS SUMMARY | 2025-09-14 13:01 | XMS_ITS | Clinical Summary ---
Author Organization [facility] Address [address] [place] [address] Care Team Providers Care Amusement Machine Mechanic Name Role Phone Cheko Heredia MD Primary Care Provider + Allergies Active Allergy Reactions Criticality Noted Date Comments Sulfa Antibiotics Nausea Only Medium 05/27/2019 Medications [place]-3 Fatty Acids (FISH OIL) 1000 MG capsule capsule Take 1 capsule by mouth Daily With Breakfast. Active PSYLLIUM HUSK PO Take 0.4 g by mouth Daily. Active Apoaequorin (PREVAGEN PO) Take by mouth. Active ranolazine (RANEXA) 1000 MG 12 hr tablet Take 1 tablet by mouth Every 12 (Twelve) Hours. 05/05/20 23 Active Xarelto 15 MG tablet Take 1 tablet by mouth Daily With Dinner. 08/25/20 24 Active tamsulosin (FLOMAX) 0.4 MG capsule 24 hr capsule TAKE ONE CAPSULE BY MOUTH EVERY NIGHT AT BEDTIME 30 capsule 09/21/19 25 Active pantoprazole (PROTONIX) 40 MG EC tablet Take 1 Tablet by mouth once daily. 30 tablet 11 11/30/19 25 Active atorvastatin (LIPITOR) 10 MG tabletIndications :Mixed hyperlipidemia Take 1 Tablet by mouth once daily. 90 tablet 3 02/10/20 25 Active diazePAM (VALIUM) 5 MG tabletIndications :Anxiety about health Take 1 tablet by mouth Every 12 (Twelve) Hours As Needed for Anxiety. 60 tablet 2 06/13/20 25 Active Jardiance 10 MG tablet tabletIndications :Type 2 diabetes mellitus without complication, without long-term current use of insulin Take 1 tablet by mouth Daily. 30 tablet 11 06/13/20 25 Active DULoxetine (CYMBALTA) 60 MG capsuleIndication s:Chronic midline low back pain without sciatica Take 1 Capsule by mouth once daily. 30 capsule 4 08/01/20 25 Active aspirin 81 MG EC tablet Take 1 tablet by mouth Daily. 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 90 tablet 08/16/20 25 Active nitroglycerin (NITROSTAT) 0.[address] 1 tablet under the tongue. 03/28/20 25 Active cyclobenzaprine (FLEXERIL) 5 MG tabletIndications :Strain of neck muscle, subsequent encounter Take 1 Tablet by mouth 3 times daily as needed for Muscle Spasms. 30 tablet 1 08/29/20 25 Active albuterol sulfate HFA 108 (90 Base) MCG/ACT inhalerIndication s:Shortness of breath Inhale 2 Puffs into the lungs every 4 hours as needed for Wheezing. 8.5 g 5 08/29/20 25 Active albuterol sulfate HFA 108 (90 Base) MCG/ACT inhalerIndication s:Shortness of breath Inhale 2 Puffs into the lungs every 4 hours as needed for Wheezing. 8.5 g 5 01/13/20 25 025 Discontinued cyclobenzaprine (FLEXERIL) 5 MG tabletIndications :Strain of neck muscle, subsequent encounter Take 1 tablet by mouth 3 (Three) Times a Day As Needed for Muscle Spasms. 30 tablet 08/05/20 25 025 Discontinued(Re order) cyclobenzaprine (FLEXERIL) 5 MG tabletIndications :Strain of neck muscle, subsequent encounter Take 1 tablet by mouth 3 (Three) Times a Day As Needed for Muscle Spasms. 30 tablet 08/16/20 25 025 Discontinued Active Problems Problem Noted Date Diagnosed Date [...] (Eight) Hours As Needed for Severe Pain. 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 NH interval 164 milliseconds, QRS duration 96 milliseconds, QTC 418 milliseconds. Coronary artery disease invo lving [place] coronary artery of [place] heart without angina pectoris 01/30/2016 Overview [...] 2010 - Chest pain with catheterization revealing [employer] of RCA collateralized, normal LVEF. Unchanged from prior. January 2016 -- cardiac catheterization by Rudolph Jj revealing [employer] of RCA (collateralized) and 90% stenosis of [...] Encounters Date Type Department Care Team Description 08/29/2025 Refill [facility] [address] [address] Cheko Heredia MD Strain of neck muscle, subsequent encounter; Shortness of breath 08/16/2025 2:45 PM EST Office Visit [facility] [address] [address] Cheko Heredia MD Neck pain on right side (Primary Dx); Traumatic disorder of cervical spine; Cervical spine arthritis; Strain of neck muscle, subsequent encounter 08/16/2025 Travel 08/15/2025 Refill [facility] [address] [address] Cheko Heredia MD Chronic pain syndrome; Spondylosis of lumbar region without myelopathy or radiculopathy 08/05/2025 4:15 PM EST Office Visit [facility] [address] [address] Cheko Heredia MD Need for immunization against influenza (Primary Dx); Strain of neck muscle, subsequent encounter 08/05/2025 Travel 08/01/2025 Refill [facility] [address] [address] Cheko Heredia MD Chronic midline low back pain without sciatica 07/26/2025 Transitional Care Management Telephone Encounter [facility] NURSE CALL CENTER [address] [place] [address] Zaida Seo, ERIK 07/26/2025 Transitional Care Management Telephone Encounter [facility] NURSE CALL CENTER [address] [place] [address] Zaida Seo, ERIK 07/25/2025 Readmission Management [facility] NURSE CALL CENTER [address] [place] [address] Eve Jeter RN 07/15/2025 Refill [facility] [address] [place] [address] Cheko Heredia MD Chronic pain syndrome; Spondylosis of lumbar region without myelopathy or radiculopathy 06/21/2025 Refill [facility] [address] [place] [address] Cheko Heredia MD Type 2 diabetes mellitus without complication, without long-term current use of insulin from Last 3 Months Immunizations Immunization Administration Dates Next Due COVID-19 (MODERNA) 1st,2nd,3 rd Dose Monovalent 07/20/2021,11/25/2020,10/28/2020 COVID-19 (PFIZER) BIVALENT 12+YRS 08/15/2022 Fluzone High-Dose 65+YRS 08/05/2025 Fluzone High-Dose 65+yrs 07/21/2023,07/15/2022 Influenza, Unspecified 06/15/2022,06/15/2021 [...] Industry Job Start Date Job End Date [employer] Not on file Not on file Not on file Last Filed Vital Signs Vital Sign Reading Time Taken Comments Blood Pressure 82/52 08/16/2025 2:49 PM EST Pulse 60 08/16/2025 2:49 PM EST Temperature 36.3 C (97.3 F) 08/16/2025 2:49 PM EST Respiratory Rate 18 08/16/2025 2:49 PM EST Oxygen Saturation 98% 08/05/2025 4:13 PM EST Inhaled Oxygen Concentration - - Weight 90.7 kg (200 lb) 08/16/2025 2:49 PM EST Height 180.3 cm (5' 11 ) 08/16/2025 2:49 PM EST Body Mass Index 27.89 08/16/2025 2:49 PM EST Plan of Treatment Upcoming Encounters Date Type Department Care Team (Late st Contact Info) Description 09/19/2025 3:00 PM EST Office Visit [facility] [address] [address] Cheko Heredia MD [address] [address] 12/12/2025 2:15 PM EDT Office Visit [facility] [address] [place] [phone] Cheko Heredia MD [address] [place] [address] Scheduled Procedures Name Priority Associated Diagnoses Date/Ti me ABLATION A-FIB Atrial fibrillation with RVR Cardiomyopathy, dilated, nonischemic Essential hypertension Health Maintenance Due Date Last Done Comments DIABETIC FOOT EXAM 1956 COLOGUARD 1991 COLON CANCER SCREENING 5 YEA R SIGMOIDOSCOPY 1991 [address] COLONOGRAPHY 1991 FECAL OCCULT BLOOD TEST 1991 FIT Testing (1 year) 1991 ZOSTER VACCINE (1 of 2) 1996 TDAP/TD VACCINES (1 - Tdap) 11/19/1996 11/18/1996 HEPATITIS C SCREENING 01/28/2017 Pneumococcal Vaccine 50+ (2 of 2 - PCV) 09/15/2020 09/15/2019, 06/04/2016 RSV Vaccine - Adults (1 - 1- dose 75+ series) 2021 DIABETIC EYE EXAM 11/02/2021 11/02/2020, , 04/21/2017, Additional history exists COVID-19 Vaccine (5 - 2024-2 6 season) 2025 08/15/2022, 07/20/2021, 11/25/2020, Additional history exists ANNUAL WELLNESS VISIT 12/10/2025 12/10/2024 , 12/10/2024, 08/26/2023, Additional history exists LIPID PANEL 12/10/2025 12/10/2024, 09/0 11/2023, 08/26/2023, Additional history exists URINE MICROALBUMIN-CREATININ E RATIO (uACR) 12/10/2025 12/10/2024 HEMOGLOBIN A1C 12/11/2025 06/13/2025, 11/14, 03/08/2024, Additional history exists COLONOSCOPY 07/29/2034 07/29/2024, 04/16, 05/05/2020, Additional history exists COLORECTAL CANCER SCREENING 07/29/2034 LUNG CANCER SCREENING Discontinued 05/16/2016 INFLUENZA VACCINE Completed 08/05/2025, , 08/09/2024, Additional history exists Medical Devices Implanted Type Area Marine Engineering Professor Device Identifier Shelf Expiration Date Model / Serial / Lot Stent Stent Stent Description:3 cardiac stents Stent Description:3 cardiac stents Stent Description:3 cardiac stents Procedures Procedure Name Priority Date/Time Associated Diagnosis Comments SCANNED - LABS 07/12/2025 SCANNED - IMAGING 07/12/2025 SCANNED - IMAGING 07/12/2025 SCANNED - IMAGING 07/12/2025 SCANNED - IMAGING 07/12/2025 SCANNED - IMAGING 07/09/2025 POCT GLYCOSYLATED HEMOGLOBIN (HGB A1C) Routine 06/13/2025 3:12 PM EDT Type 2 diabetes mellitus without complication, without long-term current use of insulin POC ALBUMIN/CREATININE RATIO Routine 12/10/2024 3:26 PM EDT Type 2 diabetes mellitus with hyperglycemia, without long-term current use of insulin LIPID PANEL Routine 12/10/2024 3:04 PM EDT Type 2 diabetes mellitus with hyperglycemia, without long-term current use of insulin SCANNED - INFLUENZA 07/21/2023 from Last 3 Months or Most Recently Relevant to Health Maintenance Results * IMAGING SCANNED (07/12/2025) Only the most recent of5 resultswithin the time period is included. Anatomical Region Laterality Modality Radiographic Susanne ging Cheko Heredia MD IMG DIAGNOSTIC IMAGING O RDERABLES Final Result * LABS SCANNED (07/12/2025) Cheko Heredia MD LAB BLOOD ORDERABLES Fin al Result * (ABNORMAL) POC Glycosylated Hemoglobin (Hb A1C) (06/13/2025 3:12 PM EDT) Hemoglobin A1C 6.1(A) 4.5 - 5.7 % [facility] Lot Number [id number] [facility] Expiration Date 12/16/2026 [facility] Blood 06/13/2025 3:12 PM EDT Cheko Heredia MD POINT OF CARE TEST ORDER ZORAIDA Final Result [facility]
[address] [place] [address], [place] [phone] * POC Albumin/Creatinine Ratio Urine (12/10/2024 3:26 [...] AM EDT Performed at: 01 - [facility] [address] [place] [id number] Plant Health Manager: Jose Weller PhD, Phone: [phone] Patient Fasting: Y Cheko Heredia MD LAB BLOOD ORDERABLES Fin al Result [facility] (AMBULATORY) [address] [place] [address], [place] [phone] [facility] [address] [place] [address], [place] [phone] * SCANNED - INFLUENZA (07/21/2023) [facility] CHART REVIEW TABS Final Re sult from Last 3 Months or Most Recently Relevant to Health Maintenance Insurance MEDICARE A & B [facility] Member Subscriber Plan / Payer (Ef fective 2011-Present) Name:Mino Hsu Relation to Subscriber:Self Name:Mino Hsu Payer ID:[id number] (NAIC) Group ID:[id number] Type:MEDICARE SUPPLEMENT Address: [address] [place] [id number] Advance Directives * Full Code (Latest Code Status on File) Date Activated Date Inactivated Comments 09/01/2016 12:25 AM 09/02/2016 3:37 PM Care Teams Amusement Machine Mechanic Relationship Specialty Start Date End Date Cheko Heredia MD [address] [place], [place] [address]Kelley LAATORRE [place] [address] PCP - General Family Medicine 01/10/22
--- OUTSIDE RECORDS SUMMARY | 2025-09-14 13:02 | XMS_ITS | Encounter Summary ---
Author Organization [facility] [place] [address] Care Team Providers Care Director Of Application Development Name Role Phone Unavailable Primary Care Provider Unavailabl e Encounter Details Date Type Department Care Team (Late st Contact Info) Description 07/19/2025 Results Follow-Up [facility] [address] [facility] [place] [address] Maribel Garcias APRN [address] [place] [address] CBC WITH DIFF, BASIC METABOLIC PANEL Social History Tobacco Use Types Packs/Day Years [...] on file documented as of this encounter Progress Notes * Taryn Funk RMA - 07/19/2025 7:54 AM EST Pt notified documented in this encounter Plan of Treatment Upcoming Encounters Date Type Department Care Team (Late st Contact Info) Description 09/16/2025 1:00 PM EST Office Visit [facility] [address] [facility] [address] [place] [address] Glendy Doan PA [address] [place] [address] [address] [place] [address] 01/23/2026 11:45 AM EDT Office Visit [facility] [address] [place] [address] Drive [address] [place] [address] eSrene Yun, ACQUISITION ADVISOR [address] [place] [address] [place] [address] documented as of this encounter Visit Diagnoses Not on filedocumented in this encounter Additional Health Concerns Assessment Noted Time A fall risk assessment has been complete d for the patient 09/28/2024 1:34 PM EST documented as of this encounter
--- OUTSIDE RECORDS SUMMARY | 2025-09-14 13:02 | XMS_ITS | Clinical Summary ---
Author Organization [employer] ([place], [place], [place], [place], [place]) Address [address] [place] [address] Care Team Providers Care Tree Thinner Name Role Phone Unavailable Primary Care Provider [...]
--- OUTSIDE RECORDS SUMMARY | 2025-09-14 13:02 | XMS_ITS | Encounter Summary ---
[facility] Address [address] [address] Care Team Providers Care Sr Vice President Name Role Phone Cheko Heredia MD Primary Care Provider + Reason for Visit * Reason Comments Med Refill Encounter Details Date Type Department Care Team (Late Contact Info) Description 08/29/2025 Refill [facility] [address] [place] [address] Cheko Heredia MD [address] [place] [address] Strain of neck muscle, subsequent encounter; Shortness of breath Social History Tobacco Use Types Packs/Day Years [...] Industry Job Start Date Job End Date [employer] Not on file Not on file Not on file documented as of this encounter Plan of Treatment Upcoming Encounters Date Type Department Care Team (Late Contact Info) Description 09/19/2025 3:00 PM EST Office Visit [facility] [address] [place] [address] Cheko Heredia MD [address] [place] [address] 12/12/2025 2:15 PM EDT Office Visit [facility] [address] [place] [address] Cheko Heredia MD [address] [place] [address] Scheduled Procedures Name Priority Associated Diagnoses Date/Ti me ABLATION A-FIB Atrial fibrillation with RVR Cardiomyopathy, dilated, nonischemic Essential hypertension documented as of this encounter Visit Diagnoses Diagnosis Strain of neck muscle, subsequent encounter Shortness of breath documented in this encounter Care Teams Sr Vice President Relationship Specialty Start Date End Date Cheko Heredia MD [address] [place] [address] PCP - General Family Medicine 01/10/22 documented as of this encounter
--- OUTSIDE RECORDS SUMMARY | 2025-09-14 13:02 | XMS_ITS | Encounter Summary ---
Author Organization [facility] [place] [address] Care Team Providers Care Wheel Blocker Name Role Phone Unavailable Primary Care Provider Unavailabl e Reason for Referral * MRI/CAT Scan (Routine) - Authorization Not Needed Specialty Diagnoses / Procedures Referred By Contac t Referred To Contact Radiology Diagnoses Other persistent atrial fibrillation (HCC) Procedures [facility] Edis Garza MD [address] [place] [address] Phone: tel: fax: Referral ID Status Reason Start Date Expiration Date Visits Requested Visits Authorized [id number] Authorization Not Needed 5 07/25/2026 1 1 Encounter Details Date Type Department Care Team (Late Contact Info) Description 07/25/2025 Orders Only [facility] [address] [facility] [address] [place] [address] Renetta Conklin RN Other persistent atrial fibrillation (HCC) (Primary Dx) [...] 1:00 PM EST Office Visit [facility] [address] [place] [address] Drive [address] [place] [address] Glendy Doan PA [address] [facility] [address] [place], [place] [id number] 01/23/2026 11:45 AM EDT Office Visit [facility] [address] [place] [address] Drive [address] [place] [address] Serene Yun, FERMENTATION OPERATOR [address] [place] [address] [address] [address] documented as of this encounter Results * CT [facility] (09/13/2025 12:57 PM EST) Anatomical Region Laterality Modality Chest Computed Tomogra phy 09/13/2025 12:5 7 PM EST Impressions 09/13/2025 3:14 PM EST Satisfactory positioning of Watchman device. No leak or significant atrial side thrombus. [place] coronary artery disease with apparent segmental occlusion [...] device. No leak or significantatrial side thrombus. [place] coronary artery disease with apparent segmental occlusion proximalRCA. Study not designed to evaluate the coronary arteries in detail however - Note: Radiology results need to be interpreted within a comprehensiveclinical context. If you have questions about the radiology report, please contactthe office of the ordering clinician. us Edis Garza MD IMG CT ORDERABLES Final Result documented in this encounter Visit Diagnoses Diagnosis Other persistent atrial fibrillation (HCC)- Primary Other persistent atrial fibrillation (HCC) documented in this encounter Additional Health Concerns Assessment Noted Time A fall risk assessment has been complete d for the patient 09/28/2024 1:34 PM EST documented as of this encounter
--- OUTSIDE RECORDS SUMMARY | 2025-09-14 13:02 | XMS_ITS | Encounter Summary ---
Author Organization [employer] ([place], [place], [place], [place], [place]) Address [address] [place] [address] Care Team Providers Care Inspector Tubes Name Role Phone Unavailable Primary Care Provider Unavailabl e Encounter Details Date Type Department Care Team (Late st Contact Info) Description 02/09/2019 Transcribed Document [facility] Family Medicine [address] [place] [address] ProviderSoham MD [address] [place] [address] Social History Tobacco Use Types [...] INTRAVENOUS FLUIDS: See Anesthesia record. DRAINS: A 20[place] coude catheter with 30 mL of sterile water in the balloon. OPERATIVE INDICATIONS: Mr. Hsu is a 73-year-old gentleman with a history of lower urinary tract symptoms, which have been refractory to five 8-mrdmc-lsibwcfws inhibitors, in addition the patient has been [...] the case. 4. Successful placement of a 20-[place] coude catheter with 30 mL of sterile [...] sheath. We therefore dilated the patient from 24-[place] to 28-[place] utilizing male urethral sounds due to the patient having undergone a previous inflatable penile prosthesis placement. We were very elena and we were very gentle in our dilation and this was noted to be atraumatic as there was no urethral bleeding during this. We then successfully introduced the 28-[place]izen [place] continuous-flow resectoscope sheath again with the inner [...] Uro-Jet for local anesthesia and inserted a 20[place] two-way coude catheter with 30 mL sterile [...]
--- OUTSIDE RECORDS SUMMARY | 2025-09-14 13:02 | XMS_ITS | Encounter Summary ---
Author Organization [facility] [address] Care Team Providers Care Inspector Plating Name Role Phone Unavailable Primary Care Provider Unavailabl e Encounter Details Date Type Department Care Team (Latest Contact Info) Description 07/25/2025 Travel Social History Tobacco Use Types Packs/Day [...] 1:00 PM EST Office Visit [facility] [address] [place] [address] [place] [address] Glendy Doan PA [address] [place] [address] [address] [place] [address] 01/23/2026 11:45 AM EDT Office Visit [facility] [address] [place] [address] [place] [address] Serene Yun APRN [address] [place] [address] [place] [address] documented as of this encounter Visit Diagnoses Not on filedocumented in this encounter Additional Health Concerns Assessment Noted Time A fall risk assessment has been complete d for the patient 09/28/2024 1:34 PM EST documented as of this encounter
--- OUTSIDE RECORDS SUMMARY | 2025-09-14 13:02 | XMS_ITS | Encounter Summary ---
Author Organization [place] [address] Care Team Providers Care Manager Regional Name Role Phone Unavailable Primary Care Provider Unavailabl e Reason for Visit * Reason Onset Date Comments Other 09/02/2025 Encounter Details Date Type Department Care Team (Late st Contact Info) Description 09/02/2025 Telephone Structural Hrt/Valve [address] [facility] [address] [place] [id number] Tamiko Guido RN Other Social History Tobacco Use Types [...] encounter Miscellaneous Notes * Telephone Encounter - Tamiko Guido RN - 09/02/2025 9:30 AM EST Left voicemail for PT regarding follow up phone call for concerns with low BP. Left call back number. documented in this encounter Plan of Treatment Upcoming Encounters Date Type Department Care Team (Late st Contact Info) Description 09/16/2025 1:00 PM EST Office Visit [facility] [address] [place] [address] [address] [place] [address] Glendy Doan PA [address] [place] [address] [address] [place] [address] 01/23/2026 11:45 AM EDT Office Visit [facility] [address] [place] [address] Drive [address] [place] [address] Serene Yun, TOBACCO SPRAYER [address] [place] [address] [place] [address] documented as of this encounter Visit Diagnoses Not on filedocumented in this encounter Additional Health Concerns Assessment Noted Time A fall risk assessment has been complete d for the patient 09/28/2024 1:34 PM EST documented as of this encounter
--- OUTSIDE RECORDS SUMMARY | 2025-09-14 13:02 | XMS_ITS | Encounter Summary ---
[facility] Organization [facility] Address [address] [place] [id number] Care Team Providers Care Inspector Penetrant Name Role Phone Cheko Heredia MD Primary Care Provider + Encounter Details Date Type Department Care Team (Late st Contact Info) Description 12/12/2014 External CPT II REGIONAL AGRONOMIST - [facility] Social History Tobacco Use [...] Description 09/19/2025 3:00 PM EST Office Visit [facility] [address] [facility] [place] [address] Cheko Heredia MD [address] [facility] [place] [address] 12/12/2025 2:15 PM EDT Office Visit [facility] MEDIC[facility] [address] [place] [address] Cheko Heredia MD [address] [place] [address] Scheduled Procedures Name Priority Associated Diagnoses Date/Ti me ABLATION A-FIB Atrial fibrillation with RVR Cardiomyopathy, dilated, nonischemic Essential hypertension documented as of this encounter Visit Diagnoses Not on filedocumented in this encounter Care Teams Inspector Penetrant Relationship Specialty Start Date End Date Cheko Heredia MD [address] [place], [place] [id number] PCP - General Family Medicine 01/10/22 documented as of this encounter
--- OUTSIDE RECORDS SUMMARY | 2025-09-14 13:02 | XMS_ITS | Encounter Summary ---
Author Organization [facility] [place] [address] Care Team Providers Care Commissary Manager Name Role Phone Unavailable Primary Care Provider Unavailabl e Reason for Visit * Reason Onset Date Comments Other 07/18/2025 Encounter Details Date Type Department Care Team (Late st Contact Info) Description 07/18/2025 Telephone Structural Hrt/Valve [address] [facility] [address] [place] [phone] Renetta Conklin RN Other Social History Tobacco [...] Telephone Encounter - Renetta Conklin RN - 07/18/2025 1:12 PM EST Summary: Watchman [id number] Stroke Risk Points: 6 Values used to calculate this score: Points Metrics 1 Has Congestive Heart Failure: Yes 1 Has Hypertension: Yes 2 Age: 79 1 Has Diabetes: Yes 0 Had Stroke: No Had TIA: No Had Thromboembolism: No 1 Has Vascular Disease: Yes 0 Clinically Relevant Sex: Male HAS-BLED Bleed Risk Score: 2 Hypertension: Yes Abnormal renal function: No Abnormal liver function: No Stroke history: No Prior major bleeding or predisposition to bleeding: No Labile INR: No Age >65: Yes Medication usage predisposing to bleeding: No Alcohol Use: No Feeding 10-independent 10 Bathing 5-independent 5 Grooming 5-independent 5 Dressing 10-independent 10 Bowels 10-continent 10 Bladder 10-continent 10 Toilet Use 10-independent 10 Transfer 15-independent 15 Mobility 15-independent 15 Stairs 10-independent 10 JUNIOR INDEX 100 Modified Nolan Score Modified Tam Score : 0 - No symptoms. documented in this encounter Plan of Treatment Upcoming Encounters Date Type Department Care Team (Late st Contact Info) Description 09/16/2025 1:00 PM EST Office Visit [facility] [address] [place] [address] [place] [address] Glendy Doan, PA [address] [place] [address] [address] [place] [address] 01/23/2026 11:45 AM EDT Office Visit [facility] [address] [place] [address] [place] [phone] Serene Yun, STATION ENGINEER CHIEF [address] [place] [address] [place] [address] documented as of this encounter Visit Diagnoses Not on filedocumented in this encounter Additional Health Concerns Assessment Noted Time A fall risk assessment has been complete d for the patient 09/28/2024 1:34 PM EST documented as of this encounter
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
--- OUTSIDE RECORDS SUMMARY | 2025-09-14 13:02 | XMS_ITS | Encounter Summary ---
Author Organization [employer] ([place], [place], [place], [place], [place]) Address [address] [place] [address] Care Team Providers Care Marketing Co Op Name Role Phone Unavailable Primary Care Provider Unavailabl e Encounter Details Date Type Department Care Team (Late st Contact Info) Description 01/27/2019 Transcribed Document [facility] [place] [address] [place] [address] ProviderSoham MD [address] [place] [address] Social History Tobacco Use Types [...] Source : Measured Height Entry Format : Charles Mix Height, Feet : 0 ft(Converted to: 0 cm, 0 Inch) Height, Inches : 72 Inch(Converted to: 6 ft 0 Inch, 182.88 cm) Clinical Height : 182.88 cm Weight Source : Standing scale Weight Entry Format : Charles Mix Clinical Dosing Weight : 90.91 kg Weight, Pounds : 200 lb Body Surface Area (BSA) : 2.13 m2 Body Mass Index : 27.2 kg/m2 (HI) Adrian Body Weight : 77 kg Vielka Dillon [...] : Living will, Medical durable power of family law attorney (proxy) Copy Advance Directive Verified/on Chart [...] Contact #1 Emergency Contact #1 Relationship : keke garcia Vielka Dillon RN - 02/09/2019 7:18 EDT Emergency Contact #2 : elva Emergency Contact #2 Phone Number : elva Emergency Contact #2 Relationship : elva Vielka Dillon RN - 02/05/2019 12:50 EDT Support Person/Patient Fire Management Officer : Yes Support Person/Pt Rep Name : Jesus Hammond- brother [phone] Want Family/Rep/Phys Notified of Admit : No Information Obtained From : Patient Primary Language : Burkinan Preferred Communication Mode : Verbal Communication Barrier [...]
--- OUTSIDE RECORDS SUMMARY | 2025-09-14 13:02 | XMS_ITS | Encounter Summary ---
Author Organization [employer] ([place], [place], [place], [place], [place]) Address [address] [place] [address] Care Team Providers Care Collision Center Manager Name Role Phone Unavailable Primary Care Provider Unavailabl e Encounter Details Date Type Department Care Team (Late st Contact Info) Description 02/09/2019 Transcribed Document [facility] [place] [address] [place] [address] ProviderSoham MD [address] [place] [address] Social History Tobacco Use Types [...] and water are not available, use hand poured pipe maker. ? Change your dressing as told by [...] or a bad smell. Medicines ??? Take sozj-cgi-dxydghg and prescription medicines only as told by [...] 12/22/2016 Document Revised: 04/09/2018 Document Reviewed: 12/22/2016 [employer] Interactive Patient Education ? 2019 [employer] Urology Indwelling Urinary Catheter Care, Adult [...] on each side. Do this in a pbegz-ro-lwka direction. ? If you are male: ? [...] and water are not available, use hand poured pipe maker. ??? Always make sure there are no [...] 09/01/2006 Document Revised: 04/17/2018 Document Reviewed: 04/17/2018 [employer] Interactive Patient Education ? 2019 [employer] Prostate Laser Surgery, Care After This [...] clear or pale yellow. Medicines ??? Take vlqw-eup-bggvmau and prescription medicines, including stool softeners, only [...] 09/01/2006 Document Revised: 04/18/2017 Document Reviewed: 04/18/2017 [employer] Interactive Patient Education ? 2019 [employer] Electronically signed by Bhupinder oCrdova Conversion Analytical Sciences Director Cerner at 12/30/2022 9:50 AM CDT documented in this encounter Plan of Treatment Not on file documented as of this encounter Visit Diagnoses Not on filedocumented in this encounter
--- OUTSIDE RECORDS SUMMARY | 2025-09-14 13:02 | XMS_ITS | Encounter Summary ---
Author Organization [employer] ([place], [place], [place], [place], [place]) Address [address] [place] [address] Care Team Providers Care Grocery Store Clerk Name Role Phone Unavailable Primary Care Provider Unavailabl e Encounter Details Date Type Department Care Team (Late st Contact Info) Description 02/09/2019 Transcribed Document [facility] [place] [address] [place] [address] ProviderSoham MD [address] [place] [address] Social History Tobacco Use Types [...] ProviderMD - 02/09/2019 8:33 AM CDT [facility] Main OR PostOp Summary Primary Physician: EZ ODOM MD-URO Finalized Date/Time: 02/09/19 12:22:42 Pt. Name: HSUMINO /Sex: 1945 Male Med Rec #: [id number] Physician: EZ ODOM MD-URO Financial #: [id number] Pt. Type: O Room/Bed: /4 Admit/Disch: 02/09/19 06:12:00 - Institution: [facility] Main OR PostOp Case Times Entry 1 In PACU II 02/09/19 10:36:00 Ready for PACU II 02/09/19 11:15:00 Discharge Discharge from PACU 02/09/19 12:22:00 II Last Modified By: EMELY HINSON RN 02/09/19 12:22:27 [facility] Main OR PostOp Case Times Audit 02/09/19 12:22:27 Business Support Manager: IESHA Modifier: IESHA 1 <*> Ready for PACU II Discharge 02/09/19 11:34:00 1 <+> Discharge from PACU II Finalized By: EMELY HINSON RN Document Signatures Signed By: EMELY HINSON RN 02/09/19 12:22 documented in this encounter Plan of Treatment Not on file documented as of this encounter Visit Diagnoses Not on filedocumented in this encounter
--- OUTSIDE RECORDS SUMMARY | 2025-09-14 13:02 | XMS_ITS | Encounter Summary ---
Author Organization [place] [address] Care Team Providers Care Skating Rink Manager Name Role Phone Unavailable Primary Care Provider Unavailabl e Reason for Visit * Reason Onset Date Comments Follow-up 07/26/2025 S/p LAAO f/u karli l Encounter Details Date Type Department Care Team (Late Contact Info) Description 07/26/2025 Telephone Structural Hrt/Valve [address] [facility] [address] [place], [place] [id number] Edis Garza MD [address] [place] [address] Follow-up (S/p LAAO f/u call) Social History Tobacco Use Types Packs/Day Years [...] encounter Miscellaneous Notes * Telephone Encounter - Gwendolyn De La Cruz CCMA - 07/29/2025 2:07 PM EST Reason for call: s/p DANIELLA Called patient to review post procedure instructions and assess current status and well-being. Spoke with: Patient Patient reports: he is doing good. Just some bruising but that's improving. Medications reviewed: no Vital signs if reported: n/a Incision/procedure site: Good, no concerns. Any Concerns: No concerns at this time Notified with patient concerns: No Concerns Follow up appointments reviewed: yes Pt verbalized understanding of post procedure instructions, restrictions, and follow up care. Contact information provided. * Telephone Encounter - Gwendolyn De La Cruz CCMA - 07/27/2025 3:08 PM EST Called to do a s/p LAAO post up check up call. No answer. Left a voicemail. 2nd call * Telephone Encounter - Gwendolyn De La Cruz CCMA - 07/26/2025 10:48 AM EST Called to do a s/p LAAO post up check up call. No answer. Left a voicemail. documented in this encounter Plan of Treatment Upcoming Encounters Date Type Department Care Team (Late st Contact Info) Description 09/16/2025 1:00 PM EST Office Visit [facility] [address] [place] [address] [place] [phone] Glendy Doan PA [address] [place] [address] DR SANCHEZ [address] [place] [address] 01/23/2026 11:45 AM EDT Office Visit [facility] [address] [place] [address] [place] [phone] Serene Yun, LIBBY [address] [place] [address] [place] [address] documented as of this encounter Visit Diagnoses Not on filedocumented in this encounter Additional Health Concerns Assessment Noted Time A fall risk assessment has been complete d for the patient 09/28/2024 1:34 PM EST documented as of this encounter
--- OUTSIDE RECORDS SUMMARY | 2025-09-14 13:02 | XMS_ITS | Encounter Summary ---
Author Organization [employer] ([place], [place], [place], [place], [place]) Address [address] [place] [address] Care Team Providers Care Diver'S Tender Name Role Phone Unavailable Primary Care Provider Unavailabl e Encounter Details Date Type Department Care Team (Late st Contact Info) Description 02/09/2019 Transcribed Document [facility] [place] [address] [place] [address] ProviderSoham MD [address] [place] [address] Social History Tobacco Use Types [...] Soham ProviderMD - 02/09/2019 8:33 AM CDT [facility] Main OR IntraOp Summary Primary Physician: EZ ODOM MD-URO Finalized Date/Time: 02/10/19 10:14:52 Pt. Name: MINO BROWN /Sex: 1945 Male Med Rec #: [id number] Physician: EZ ODOM MD-URO Financial #: [id number] Pt. Type: O Room/Bed: /4 Admit/Disch: 02/09/19 06:12:00 - 02/09/19 10:22:00 Institution: [facility] IntraOp Case Attendance Entry 1 Entry 2 Entry 3 Case Attendee EZ ODOM CORNEA, MIHAELA, MD BREITIGAN, STEPHEN, CRNA MD-URO Role Performed Surgeon/Proceduralist, Anesthesiologist of ENRICHMENT DIRECTOR/Nurse Digital Archivist First Record Time In 02/09/19 08:17:00 02/09/19 [...] HERO DOUGLAS MD Madden, Jerrild Role Performed Vocational Rehabilitation Specialist, First Resident Laser Process Control Operator Time In 02/09/19 08:17:00 02/09/19 08:17:00 [...] Modified By: Swapna Vasquez RN 02/09/19 09:27:39 [facility] IntraOp Case Attendance Audit 02/09/19 09:27:39 Bookkeepers Supervisor: KARINA Modifier: KARINA 1 <+> Time Out [...] 7 <*> Procedure Prostate Green Light Laser [facility] IntraOp Case Times Entry 1 Patient In Room Time 02/09/19 08:17:00 Out Room Time 02/09/19 09:27:00 Anesthesia Start Time 02/09/19 08:17:00 Stop Time 02/09/19 09:27:00 Surgery / Procedure Times Start Time 02/09/19 08:33:00 Stop Time 02/09/19 09:16:00 Last Modified By: Swapna Vasquez RN 02/09/19 09:27:27 [facility] IntraOp Case Times Audit 02/09/19 09:27:27 Bookkeepers Supervisor: KARINA Modifier: POFFJAN <+> 1 Out Room Time <+> 1 Stop Time 02/09/19 09:16:05 Bookkeepers Supervisor: KARINA Modifier: POFFJAN <+> 1 Stop Time [facility] IntraOp Communication Entry 1 Communication To Family/Significant other Comment Start Communication By Swapna Vasquez RN Date and Time 02/09/19 08:33:00 Last Modified By: Swapna Vasquez RN 02/09/19 08:44:49 [facility] IntraOp Delays Entry 1 Delay Reason Surgeon late - no reason Duration 17 Minute(s) Comment surgeon at bedside at 0810 Last Modified By: Swapna Vasquez RN 02/09/19 08:37:30 [facility] IntraOp Departure from OR Entry 1 Integumentary Assessment Integumentary WDL Assessment WDL Transfer/Handoff Transfer to PACU Phase I Handoff Method Phone call Handoff Reported to JEFFERSON MATHUR RN Post-op Transport Stretcher/Gurney Via Patient Transport ALEX CORDERO, Accompanied by CHANDA MOLINA JOHN, MD Last Modified By: Swapna Vasquez RN 02/09/19 09:27:52 [facility] IntraOp Departure from OR Audit 02/09/19 09:27:52 Bookkeepers Supervisor: POFFJAN Modifier: POFFJAN <+> 1 Handoff Reported to 02/09/19 09:19:07 Bookkeepers Supervisor: POFFJAN Modifier: POFFJAN <+> 1 Patient Transport Accompanied by [facility] IntraOp Fire Risk Assessment [...] Modified By: Swapna Vasquez RN 02/09/19 08:41:29 [facility] IntraOp General Case Rehabilitation Counsellor 1 Case Information OR OR 03 [facility] Case Level 1 Room Verified Yes Wound Class II - Clean-Contaminated Specialty SN Urology Anesthesia Type General ASA Class 3 Diagnosis 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 Postop Same As Preop Yes 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 Last Modified By: Swapna Vasquez RN 02/09/19 09:00:23 [facility] IntraOp General Case Data Audit 02/09/19 09:00:23 Bookkeepers Supervisor: MANUELLEWISKULWINDER Modifier: POLEWISJAN <+> 1 Postop Same As Preop <+> 1 Preop Diagnosis <+> 1 Postop Diagnosis [facility] IntraOp Intraoperative Assessment Entry [...] Modified By: Swapna Vasquez RN 02/09/19 08:43:17 [facility] IntraOp Intraoperative Equipment Entry 1 Type Monitoring Equipment Intraop Monitoring Electrocardiogram Three lead placement (ECG) Electrode Placement Blood Pressure Non-Invasive BP Device Source Blood Pressure Arm, right upper Location Pulse Oximeter Hand, left Probe Site Antiembolic Devices Antiembolic Devices Sequential compression device, knee high Antiembolic Device Bilateral Location Antiembolic Device [id number] ID Number Scopes Photo/Video Documentation Photo No Video No Intraop Equipment Sequential compression Comment devices on and in operation prior to induction of anesthesia. Last Modified By: Swapna Vasquez RN 02/09/19 08:44:16 [facility] IntraOp Medication Admin Entry 1 Entry 2 Entry 3 Medication/Irrigant ZIGGY IRR 0.9% NACL B&O 16A Suppository - ZIGGY IRR NACL 0.9PCT 1000ML --[id number] Combo Med List Time Administered 02/09/19 08:33:00 [...] Medication/Irrigant lidocaine 2% urojet 10ml jelly - [id number] Combo Med List Time Administered 02/09/19 09:14:00 Route of Local, urethra Administration Dose Dose 10 Unit of Measure ml Volume Administered By HERO ARMAS MD Procedure Irrigation Irrigant Volume In Irrigant Volume Out Last Modified By: Swapna Vasquez RN 02/09/19 09:18:40 [facility] IntraOp Medication Admin Audit 02/09/19 09:18:40 Bookkeepers Supervisor: KARINA Modifier: KARINA 1 <*> Administered By EZ ODOM MD-URO 1 <+> Irrigant Volume In 1 <+> Irrigant Volume Out 2 <*> Medication/Irrigant B&O 16A Suppository - [id number] 2 <+> Dose 2 <+> Time Administered 3 <*> Medication/Irrigant ZIGGY IRR NACL 0.9PCT 3000ML-[id number] 3 <+> Irrigant Volume In 3 <+> Irrigant Volume Out 4 <*> Medication/Irrigant lidocaine 2% urojet 10ml jelly - [id number] 4 <+> Time Administered 02/09/19 08:47:57 Bookkeepers Supervisor: KARINA Modifier: POLEWISJAN <+> 4 Medication/Irrigant <+> 4 Route of Administration <+> 4 Administered By <+> 4 Dose <+> 4 Unit of Measure [facility] IntraOp Patient Positioning Entry [...] Modified By: Swapna Vasquez RN 02/09/19 08:41:05 [facility] IntraOp Sign In Entry [...] Modified By: Swapna Vasquez RN 02/09/19 08:37:40 [facility] IntraOp Sign Out Entry [...] Modified By: Swapna Vasquez RN 02/09/19 09:27:35 [facility] IntraOp Sign Out Audit 02/09/19 09:27:35 Bookkeepers Supervisor: KARINA Modifier: BRITTNEYJAN <+> 1 RN Sign Out Signature Date/Time 02/09/19 09:18:55 Bookkeepers Supervisor: KARINA Modifier: KARINA <+> 1 Urinary Catheter Documented in IVjamisonw [facility] IntraOp Skin Prep Entry 1 Procedure Prostate Green Light Laser Prescribed Yes Pre-Surgical Prep Completed Prep Area Genitalia Intraop Prep Integumentary WDL Assessment WDL Prep Agents Betadine solution Prep by Swapna Vasquez RN Hair Removal Last Modified By: Swapna Vasquez RN 02/09/19 08:43:49 [facility] IntraOp Surgical Procedures Entry 1 Procedure Prostate Green Light Laser Additional GREENLIGHT LASER OF Procedure PROSTATE Description Primary Procedure Yes Primary Surgeon EZ ODOM MD-URO Start 02/09/19 08:33:00 Stop 02/09/19 09:16:00 Anesthesia Type General Specialty SN Urology Wound Class II - Clean-Contaminated Last Modified By: Swapna Vasquez RN 02/09/19 09:16:11 [facility] IntraOp Surgical Procedures Audit 02/09/19 09:16:11 Bookkeepers Supervisor: KARINA Modifier: KARINA <+> 1 Stop [facility] IntraOp Temp Regulation Devices Entry 1 Temp Regulation Temperature Warm blankets, Room Regulation Device temperature Temperature Upper body Regulation Site Temperature Swapna Vasquez RN Regulation Device Applied by Temperature Patient's temperature Regulation Comment monitored by anesthesia provider. Forced air warming device settings controlled by anesthesia provider. Last Modified By: Swapna Vasquez RN 02/09/19 08:44:27 [facility] IntraOP Time Out Entry [...] 10:14 [facility] Correct Billing Electronically signed by Bhupinder Cordova Conversion Coordinate Measuring Equipment Operator Cerner at 12/30/2022 9:52 AM CDT documented in this encounter Plan of Treatment Not on file documented as of this encounter Visit Diagnoses Not on filedocumented in this encounter
--- OUTSIDE RECORDS SUMMARY | 2025-09-14 13:02 | XMS_ITS | Encounter Summary ---
Author Organization [facility] Address [address] [place] [id number] Care Team Providers Care Manufacturing Supervisor 2Nd Shift Name Role Phone Cheko Heredia MD Primary Care Provider + Encounter Details Date Type Department Care Team (Late st Contact Info) Description 10/24/2014 External CPT II [employer] [facility] [employer] Social History Tobacco Use [...] Description 09/19/2025 3:00 PM EST Office Visit [facility] [address] [place] [address] Cheko Heredia MD [address] [place] [address] 12/12/2025 2:15 PM EDT Office Visit [facility] [address] [place] [address] Cheko Heredia MD [address] [place] [address] Scheduled Procedures Name Priority Associated Diagnoses Date/Ti me ABLATION A-FIB Atrial fibrillation with RVR Cardiomyopathy, dilated, nonischemic Essential hypertension documented as of this encounter Visit Diagnoses Not on filedocumented in this encounter Care Teams Manufacturing Supervisor 2Nd Shift Relationship Specialty Start Date End Date Cheko Heredia MD [address] [place], [place] [phone] PCP - General Family Medicine 01/10/22 documented as of this encounter
--- OUTSIDE RECORDS SUMMARY | 2025-09-14 13:02 | XMS_ITS | Encounter Summary ---
Author Organization [place] [address] Care Team Providers Care Grade Setter Name Role Phone Unavailable Primary Care Provider Unavailabl e Reason for Visit * Reason Onset Date Comments Other 08/31/2025 Encounter Details Date Type Department Care Team (Late st Contact Info) Description 08/31/2025 Telephone [facility] Ar[facility]ia [facility] [address] [facility] [address] [place] [address] Kai Orellana MA Other Social History Tobacco Use Types Packs/Day [...] Telephone Encounter - Renetta Conklin RN - 09/01/2025 12:59 PM EST Second attempt to reach pt. Left message. * Telephone Encounter - Renetta Conklin RN - 09/01/2025 9:36 AM EST Summary: Low BP Called pt to get more details. Left message and asked him to take his home BP and HR, if possible, and call me back. Contact information provided. * Telephone Encounter - Kai Orellana MA - 08/31/2025 4:21 PM EST Pt concerned about BP brought to me by Renetta Conklin. Info routed to BRANDON. documented in this encounter Plan of Treatment Upcoming Encounters Date Type Department Care Team (Late st Contact Info) Description 09/16/2025 1:00 PM EST Office Visit [facility] [address] [place] [address] [place] [phone] Glendy Doan, MIGUEL [address] [place] [address] DR SANCHEZ [address] [place] [address] 01/23/2026 11:45 AM EDT Office Visit [facility] [address] [place] [address] [place] [phone] Serene Yun, TECHNOLOGY ENGINEER [address] [place] [address] [place] [address] documented as of this encounter Visit Diagnoses Not on filedocumented in this encounter Additional Health Concerns Assessment Noted Time A fall risk assessment has been complete d for the patient 09/28/2024 1:34 PM EST documented as of this encounter
--- OUTSIDE RECORDS SUMMARY | 2025-09-14 13:02 | XMS_ITS | Encounter Summary ---
Author Organization [employer] ([place], [place], [place], [place], [place]) Address [address] [place] [address] Care Team Providers Care Manager Quality Compliance Name Role Phone Unavailable Primary Care Provider Unavailabl e Encounter Details Date Type Department Care Team (Late st Contact Info) Description 02/09/2019 Transcribed Document [facility] [address] [place] [address] ProviderSoham MD [address] [place] [address] Social History Tobacco Use Types [...] Soham ProviderMD - 02/09/2019 12:11 PM CDT [facility] [address] MINO HSU :1945 Visit Time:02/09/2019 [...] EDT Comments Appointment has been made Where: [address] [place] [address]- [employer] (1) Medications What How Much When Instructions [...] on each side. Do this in a ojwlj-uf-pwvo direction. ? If you are male: ? [...] and water are not available, use hand tube sorter. ??? Always make sure there are no [...] 09/01/2006 Document Revised: 04/17/2018 Document Reviewed: 04/17/2018 [employer] Interactive Patient Education ?? 2019 [employer] Inc. Prostate Laser Surgery, Care After This [...] clear or pale yellow. Medicines ??? Take oqrf-bhp-tpuruxr and prescription medicines, including stool softeners, only [...] 09/01/2006 Document Revised: 04/18/2017 Document Reviewed: 04/18/2017 [employer] Interactive Patient Education ?? 2019 [employer] Outpatient Surgery, Adult, Care After These instructions [...] and water are not available, use hand tube sorter. ? Change your dressing as told by [...] or a bad smell. Medicines ??? Take ixdm-vbl-uykwpet and prescription medicines only as told by [...] 12/22/2016 Document Revised: 04/09/2018 Document Reviewed: 12/22/2016 [employer] Interactive Patient Education ?? 2019 [employer] Inc. phenazopyridine (fen AY matthew PIR i [...] or ?? a genetic enzyme deficiency called vcjdyrw-2-qmkgbvvyl dehydrogenase (G6PD) deficiency. FDA category B. Phenazopyridine [...] may report side effects to FDA at 2-624-VWL-2613. What other drugs will affect phenazopyridine? Other drugs may interact with phenazopyridine, including prescription and paqt-woe-gsglnzi medicines, vitamins, and herbal products. Tell each [...] to ensure that the information provided by [employer]. ('Multum') is accurate, up-to-date, and complete, but no guarantee is made to that effect. Drug information contained herein may be time sensitive. [employer] information has been compiled for use by healthcare practitioners and consumers in the [place] and therefore [employer] does not warrant that uses outside of the [place] are appropriate, unless specifically indicated otherwise. Dom[employer]'s drug information does not endorse drugs, diagnose patients or recommend therapy. Dom[employer]'s drug information is an informational resource designed [...] effective or appropriate for any given patient. [facility] does not assume any responsibility for any aspect of healthcare administered with the aid of information [facility] provides. The information contained herein is not intended to cover all possible uses, directions, precautions, warnings, drug interactions, allergic reactions, or adverse effects. If you have questions about the drugs you are taking, check with your doctor, nurse or pharmacist. Copyright 6904-7814 [facility] (f. [employer]). Version: 3.05. Revision Date: 01/06/2014.nitrofurantoin (BELKIS troe [...] electrolyte imbalance or vitamin B deficiency; ?? phcazjc-9-otyhorvzu dehydrogenase (G6PD) deficiency; or ?? any type [...] may report side effects to FDA at 7-448-DJQ-9276. What other drugs will affect nitrofurantoin? Other drugs may interact with nitrofurantoin, including prescription and dmff-hmb-whqeayl medicines, vitamins, and herbal products. Tell each [...] to ensure that the information provided by [employer]. ('Multum') is accurate, up-to-date, and complete, but no guarantee is made to that effect. Drug information contained herein may be time sensitive. [employer] information has been compiled for use by healthcare practitioners and consumers in the [place] and therefore [employer] does not warrant that uses outside of the [place] are appropriate, unless specifically indicated otherwise. [employer] drug information does not endorse drugs, diagnose patients or recommend therapy. [employer] drug information is an informational resource designed [...] effective or appropriate for any given patient. [employer] does not assume any responsibility for any aspect of healthcare administered with the aid of information [employer] provides. The information contained herein is not intended to cover all possible uses, directions, precautions, warnings, drug interactions, allergic reactions, or adverse effects. If you have questions about the drugs you are taking, check with your doctor, nurse or pharmacist. Copyright 0225-1585 [employer]. Version: 8.01. Revision Date: 11/23/2013.acetaminophen and hydrocodone (a SEET a MIN oh fen and cassi droe KOE done) Hycet, Lorcet, Burnet, Verdrocet, Vicodin, Xodol, Zamicet What is the [...] may report side effects to FDA at 9-990-PPZ-3993. What other drugs will affect acetaminophen and [...] affect acetaminophen and hydrocodone, including prescription and gdqv-inx-loslpxi medicines, vitamins, and herbal products. Not all [...] to ensure that the information provided by [employer]. ('Multum') is accurate, up-to-date, and complete, but no guarantee is made to that effect. Drug information contained herein may be time sensitive. [employer] information has been compiled for use by healthcare practitioners and consumers in the [place] and therefore [employer] does not warrant that uses outside of the [place] are appropriate, unless specifically indicated otherwise. [employer] drug information does not endorse drugs, diagnose patients or recommend therapy. [employer] drug information is an informational resource designed [...] effective or appropriate for any given patient. [employer] does not assume any responsibility for any aspect of healthcare administered with the aid of information [employer] provides. The information contained herein is not intended to cover all possible uses, directions, precautions, warnings, drug interactions, allergic reactions, or adverse effects. If you have questions about the drugs you are taking, check with your doctor, nurse or pharmacist. Copyright 1963-4256 [employer]. Version: 15.. Revision Date: 07/20/2018.docusate (oral/rectal) (DOK [...] may report side effects to FDA at 7-485-TYU-0346. What other drugs will affect docusate? Other drugs may interact with docusate, including prescription and nljv-rat-cuyxmpp medicines, vitamins, and herbal products. Tell each [...] to ensure that the information provided by [employer]. ('Multum') is accurate, up-to-date, and complete, but no guarantee is made to that effect. Drug information contained herein may be time sensitive. Domosite information has been compiled for use by healthcare practitioners and consumers in the [place] and therefore [employer] does not warrant that uses outside of the [place] are appropriate, unless specifically indicated otherwise. Domosite's drug information does not endorse drugs, diagnose patients or recommend therapy. MyStreams drug information is an informational resource designed [...] effective or appropriate for any given patient. [employer] does not assume any responsibility for any aspect of healthcare administered with the aid of information [employer] provides. The information contained herein is not intended to cover all possible uses, directions, precautions, warnings, drug interactions, allergic reactions, or adverse effects. If you have questions about the drugs you are taking, check with your doctor, nurse or pharmacist. Copyright 8545-1093 [employer]. Version: 3.03. Revision Date: 10/27/2013. Emergency Awareness [...] Assistance with quitting is available by contacting 5-047-RJABJobPlanetNOW. This is a free resource providing counseling, [...] Be sure to sign up for the [facility] patient portal, which gives you 07/04 access to your medical information ??? including these discharge instructions ??? using your computer, smartphone, or tablet. Just go to Leotus to get started. Questions? Call . Test Results Laboratory or Other Results This Visit (last charted value for your 02/09/2019 visit) No Laboratory or Other Results This Visit Patient Name:MINO HSU I have received this information and was given the opportunity to ask questions. Patient/Drill Rig Operator Name: Patient/Drill Rig Operator Signature: Relationship to Patient: Clinician/Hospital Drill Rig Operator Signature: Date: Electronically signed by Bhupinder Cordova Conversion Health Care Specialist Christine at 12/30/2022 9:35 AM CDT documented in this encounter Plan of Treatment Not on file documented as of this encounter Visit Diagnoses Not on filedocumented in this encounter
--- OUTSIDE RECORDS SUMMARY | 2025-09-14 13:02 | XMS_ITS | Encounter Summary ---
Author Organization [employer] ([place], [place], [place], [place], [place]) Address [address] [place] [address] Care Team Providers Care Deckhand Shrimp Boat Name Role Phone Unavailable Primary Care Provider Unavailabl e Encounter Details Date Type Department Care Team (Late st Contact Info) Description 02/09/2019 Transcribed Document [facility] [place] Family Medicine [address] [place] [address] ProviderSoham MD [address] [place] [address] Social History Tobacco Use Types [...] Soham ProviderMD - 02/09/2019 8:33 AM CDT [facility] Main OR PACU Summary Primary Physician: EZ ODOM MD-URO Finalized Date/Time: 02/09/19 10:42:36 Pt. Name: HSUMINO /Sex: 1945 Male Med Rec #: [id number] Physician: EZ ODOM MD-URO Financial #: [id number] Pt. Type: O Room/Bed: /4 Admit/Disch: 02/09/19 06:12:00 - Institution: [facility] Main OR PACU I Case Times Entry 1 In PACU I 02/09/19 09:28:00 Ready for PACU 02/09/19 10:32:00 Discharge Discharge from PACU 02/09/19 10:32:00 I Last Modified By: VERÓNICA AMARO RN 02/09/19 10:42:24 [facility] Main OR PACU I Case Times Audit 02/09/19 10:42:24 Heat Curer: [id number] Modifier: [id number] <+> 1 Ready for PACU Discharge <+> 1 Discharge from PACU I Finalized By: VERÓNICA AMARO RN Document Signatures Signed By: VERÓNICA AMARO RN 02/09/19 10:42 Electronically signed by Tasha [facility] Conversion Hot Dog Vendor Cerner at 12/30/2022 9:52 AM CDT documented in this encounter Plan of Treatment Not on file documented as of this encounter Visit Diagnoses Not on filedocumented in this encounter
--- OUTSIDE RECORDS SUMMARY | 2025-09-14 13:02 | XMS_ITS | Clinical Summary ---
Author Organization [facility] Address [address] [place] [address] Phone Care Team Providers Care Grain Oilseed Or Pasture Farm Worker Name Role Phone Shanna SUTTON, Pedro TOLENTINO [...] Active Last Documented On 5 1:39AM ; [facility] Plan of Treatment No Plan of Treatment Recorded Assessments Includes: Assessments from this encounter No Assessments Recorded Medical Equipment - Implanted Devices Includes: Current Devices No Medical Equipment Recorded Medications Includes: Medications discussed during this encounter and other current Medications Current Medications (continue as prescribed) Jardiance 10 MG Oral Tablet 10/22/2024 Provider: Diagnosis: Last Documented On 5 2:09PM By Deangelo العلي ; [facility] Albuterol Sulfate HFA 108 (9 0 Base) MCG/ACT Inhalation Aerosol Solution 10/13/2024 Provider: Diagnosis: Last Documented On 5 2:09PM By Deangelo العلي ; [facility] Xarelto 15 MG Oral Tablet 10/13/2024 Provider: Diagnosis: Last Documented On 5 2:09PM By Deangelo العلي ; [facility] Clopidogrel Bisulfate 75 MG Oral Tablet 10/01/2024 Ally dalalder: Diagnosis: Last Documented On 5 2:09PM By Deangelo العلي ; [facility] Pantoprazole Sodium 40 MG Oral Tablet Delayed Release 10/01/2024 Provider: Diagnosis: Last Documented On 5 2:09PM By Deangelo العلي ; [facility] Ranolazine ER 1000 MG Oral Tablet Extended Release 12 Hour 10/01/2024 Provider: Diagnosis: Last Documented On 5 2:09PM By Deangelo العلي ; [facility] Tamsulosin HCl 0.4 MG Oral Capsule 09/21/2024 Provid er: Diagnosis: Last Documented On 2:09PM By Deangelo العلي ; [facility] Medications Administered Includes: Administered Medications from this encounter No Administered Medications Recorded Results Includes: Results discussed during this encounter No Results Recorded For Specified Dates History of Present Illness Includes: History of Present Illness from this encounter No History of Present Illness Recorded Social History Description Last Updated Sex - Male 07/27/2025 Last Documented On 12:23PM ; [facility] Smoking Status Unknown Medical History Includes: Medical [...] ctive Last Documented On 5 1:30PM ; [facility] Care Grain Oilseed Or Pasture Farm Worker Name (Identifier) Role/Relation Location/Telecom Last Documented By Pedro Otero MD ([id number]) Assigned practitioner (occupation) Last Documented On 07/27/2025 12:23PM ; [facility] ALEX TOLENTINO MD ([id number]) Primary care physician (occupation) [place] , [phone] tel: Last Documented On 07/27/2025 12:23PM ; [facility] Encounters Encounter Provider Location (Healthcare Service Location) Date Check-In Time Check-Out Time Diagnosis Encounter Disposition Epidural Steroid Injection [place] CRNA 2024 4:19PM 11:59PM Payer Includes: Active Insurance Policies Plan Name (Payer ID) Coverage Type Member ID Group # Subscriber (ID) Relationship Effective Dates 1 - Medicare Part B [facility] ([id number]) [id number] Mino Ferro 2 - Unknown Last Documented On 9 1:12PM ; [facility], PSC 2 - BCBS [facility] ([id number]) [id number] Mino Ferro 07/22/20 16 - Unknown Last Documented On 9 1:12PM ; [facility]
--- OUTSIDE RECORDS SUMMARY | 2025-09-14 13:02 | XMS_ITS | Encounter Summary ---
Author Organization [facility] [address] Care Team Providers Care Laborer Gold Leaf Name Role Phone Unavailable Primary Care Provider Unavailabl e Reason for Visit * Reason Onset Date Comments Other 09/09/2025 Encounter Details Date Type Department Care Team (Late Contact Info) Description 09/09/2025 Telephone [facility] [address] [place] [address] [place] [phone] Renetta Conklin RN Other Social History Tobacco [...] Telephone Encounter - Renetta Conklin RN - 09/09/2025 3:04 PM EST Spoke with pt. CT and appt rescheduled. documented in this encounter Plan of Treatment Upcoming Encounters Date Type Department Care Team (Late st Contact Info) Description 09/16/2025 1:00 PM EST Office Visit [facility] [address] [facility] [address] [place] [address] Glendy Doan PA [address] [place] [address] [address] [place] [address] 01/23/2026 11:45 AM EDT Office Visit [facility] [address] [place] [address] Drive [address] [place] [address] Serene Yun, RESTAURANT RECRUITER [address] [place] [address] [place] [address] documented as of this encounter Visit Diagnoses Not on filedocumented in this encounter Additional Health Concerns Assessment Noted Time A fall risk assessment has been complete d for the patient 09/28/2024 1:34 PM EST documented as of this encounter
--- OUTSIDE RECORDS SUMMARY | 2025-09-14 13:02 | XMS_ITS | Encounter Summary ---
Author Organization [employer] ([place], [place], [place], [place], [place]) Address [address] [place] [address] Care Team Providers Care Surveillance Manager Name Role Phone Unavailable Primary Care Provider Unavailabl e Encounter Details Date Type Department Care Team (Late st Contact Info) Description 02/09/2019 Transcribed Document [facility] [place] [place] Family Medicine [address] [place] [address] ProviderSoham MD [address] [place] [address] Social History Tobacco Use Types [...] Soham ProviderMD - 02/09/2019 8:33 AM CDT [facility] Main OR Preop Summary Primary Physician: EZ ODOM MD-URO Finalized Date/Time: 02/09/19 09:15:02 Pt. Name: HSUMINO BLANCHARD /Sex: 1945 Male Med Rec #: [id number] Physician: EZ ODOM MD-URO Financial #: [id number] Pt. Type: O Room/Bed: /4 Admit/Disch: 02/09/19 06:12:00 - Institution: [facility] PreOp Case Times Entry 1 In Preop 02/09/19 06:27:00 Ready for Holding n/a Room Patient Ready for 02/09/19 07:23:00 Surgery Patient Out of Preop 02/09/19 08:15:00 Patient Out of n/a Holding Room Last Modified By: Vielka Dillon RN 02/09/19 09:15:01 [facility] PreOp Case Times Audit 02/09/19 09:15:01 Community Sports Coordinator: GIBRAN Modifier: REISNERK <+> 1 Patient Out of Preop 02/09/19 07:31:13 Community Sports Coordinator: GIBRAN Modifier: REISNERK <+> 1 In Preop Finalized By: Vielka Dillon, RN Document Signatures Signed By: Vielka Dillon RN 02/09/19 09:15 Electronically signed by Tasha [facility] Conversion Cordwood Cutter Cerner at 12/30/2022 10:00 AM CDT documented in this encounter Plan of Treatment Not on file documented as of this encounter Visit Diagnoses Not on filedocumented in this encounter
--- OUTSIDE RECORDS SUMMARY | 2025-09-14 13:02 | XMS_ITS | Encounter Summary ---
Author Organization [employer] ([place], [place], [place], [place], [place]) Address [address] [place] [address] Care Team Providers Care Usability Specialist Name Role Phone Unavailable Primary Care Provider Unavailabl e Encounter Details Date Type Department Care Team (Late st Contact Info) Description 02/09/2019 Transcribed Document [facility] [facility] [place] [address] ProviderSoham MD [address] [place] [address] Social History Tobacco Use Types Packs/Day Years Used Date Smoking Tobacco: Never Assessed Sex and Gender Information Value Date Recorded Sex Assigned at Male 03/14/2022 12:41 PM CDT Legal Sex Male 6:35 PM CDT Gender Identity Male 03/14/2022 12:41 PM CDT Sexual Orientation Not on file documented as of this encounter Miscellaneous Notes * Cerner Conversion Note - Historical ProviderMD - 02/09/2019 6:35 AM CDT Patient: MINO HSU Age: 73 years Sex: Male : 1945 Associated Diagnoses: None Author: SACHIN BERNAL, DEMONSTRATOR SALES Chief Complaint BPH Review of Systems ROS [...] Stented coronary artery x3 / SNOMED CT 1210257883 / Confirmed Pneumonia / SNOMED CT 307934791 / Confirmed Hyperlipidemia / SNOMED CT 60004380 / Confirmed High blood pressure / SNOMED CT 46657351 / Confirmed Hemorrhoids / SNOMED CT 077058249 / Confirmed Hard of hearing, left ear / SNOMED CT 346200910 / Confirmed Disorder of prostate / SNOMED CT 50199185 / Confirmed Cataract / SNOMED CT 884935436 / Confirmed Back pain / SNOMED CT 8903845382 / Confirmed A-fib / SNOMED CT 69898873 / Confirmed, Active Problems (10) A-fib Back [...] 07:00) 124 (FEBRUARY 09 07:00) 124 (FEBRUARY 09 07:00) DBP 62 (FEBRUARY 09 07:00) 62 (FEBRUARY 09 07:00) 62 (FEBRUARY 09:00) SpO2 94 (FEBRUARY 09:00) 94 (FEBRUARY 09 07:00) 94 (FEBRUARY 09:00) General: Alert and oriented, No acute distress. [...]
--- OUTSIDE RECORDS SUMMARY | 2025-09-14 13:02 | XMS_ITS | Encounter Summary ---
Author Organization [facility] [address] Care Team Providers Care Plywood Scarfer Tender Name Role Phone Unavailable Primary Care Provider Unavailabl e Encounter Details Date Type Department Care Team (Late st Contact Info) Description 08/08/2021 Orders Only [facility] [address] [place] [phone] Edis Garza MD [address] [place] [address] [place] [address] Social History Tobacco Use Types Packs/Day [...] 1:00 PM EST Office Visit [facility] [address] [place] [address] [place] [address] Glendy Doan PA [address] [place] [address] [address] [place] [address] 01/23/2026 11:45 AM EDT Office Visit [facility] [address] [place] [address] [address] [place] [address] Serene Yun, MILLWRIGHT [address] [place] [address] documented as of this encounter Procedures Procedure Name Priority Date/Time Associated Diagnosis Comments EP LAB RECORDINGS Routine 08/08/2021 11:22 AM EST documented in this encounter Results * EP LAB RECORDINGS (08/08/2021 11:22 AM EST) 08/08/2021 11:2 2 AM EST us Edis Garza MD CARDIAC CATH ORDERABLES Final Result [facility] [address] [place] [address] documented in this encounter Visit Diagnoses Not on filedocumented in this encounter Additional Health Concerns Assessment Noted Time A fall risk assessment has been complete d for the patient 08/03/2021 2:11 PM EST documented as of this encounter
--- OUTSIDE RECORDS SUMMARY | 2025-09-14 13:02 | XMS_ITS | Encounter Summary ---
Author Organization [place] [address] Care Team Providers Care Plasma Center Technician Name Role Phone Unavailable Primary Care Provider Unavailabl e Reason for Visit * Reason Onset Date Comments Other 09/09/2025 Encounter Details Date Type Department Care Team (Late Contact Info) Description 09/09/2025 Telephone [facility] [address] [facility] [address] [place] [address] Renetta Conklin RN Other Social History [...] Encounter - Renetta Conklin RN - 09/09/2025 2:31 PM EST Summary: Watchman Pt missed [address] Left message to get pt back on track. Tamiko aware. documented in this encounter Plan of Treatment Upcoming Encounters Date Type Department Care Team (Late st Contact Info) Description 09/16/2025 1:00 PM EST Office Visit [facility] [address] [facility] [address] [place] [address] Glendy Doan PA [address] [place] [address] [address] [place] [address] 01/23/2026 11:45 AM EDT Office Visit [facility] [address] [place] [address] Drive [address] [place] [address] Serene Yun, DENTURE PACKER [address] [place] [address] [place] [address] documented as of this encounter Visit Diagnoses Not on filedocumented in this encounter Additional Health Concerns Assessment Noted Time A fall risk assessment has been complete d for the patient 09/28/2024 1:34 PM EST documented as of this encounter
== END 2025-09-14 23:59 | disposition home or self-care (01) ==
LOC: RAD 12:58
PROVIDERS: PCP Family Medicine; Visit Provider Family Medicine
DX: S14.109A Unspecified injury at unspecified level of cervical spinal cord, initial encounter (principal); M43.12 Spondylolisthesis, cervical region; M50.21 Other cervical disc displacement, high cervical region; M47.812 Spondylosis without myelopathy or radiculopathy, cervical region; M48.02 Spinal stenosis, cervical region; W19.XXXA Unspecified fall, initial encounter
CPT/HCPCS: 72141